=== PATIENT | male | born 1950 | race Caucasian/White ===

== ENCOUNTER 2018-07-13 13:25 | Inpatient (IN) ==
[2018-07-13] MEDS ORDERED: ACETAMINOPHEN 500 MG TAB PO STA (13:49)
[2018-07-13] MEDS ORDERED: SODIUM CHLORIDE 0.9% 1000ML 2,000 ML IV ONE (13:49)
[2018-07-13] MEDS ORDERED: cefTRIAXone SODIUM 1,000 MG/50 ML BAG IV STA (13:49)
[2018-07-13 14:25] LABS: iSTAT Creatinine 1.4 mg/dl (0.6-1.3); iSTAT Hemoglobin 16.3 g/dl (14.0-18.0); iSTAT Ionized Calcium 1.11 mmol/l (1.12-1.32); iSTAT Potassium 4.7 mEq/L (3.3-5.0)
--- NOTE | 2018-07-13 14:46 | CT Scan Report ---
CT head/brain wo con CT DOSE: 832.33 mGy.cm HISTORY: Mental status change legs weak TECHNIQUE: Multiaxial CT images of the head were performed without the use of intravenous contrast. A dose lowering technique was utilized adhering to the principles of ALARA. Comparison: None. Findings: The paranasal sinuses and mastoid air cells are clear. No prior studies are available for c omparison. There is an old right frontal infarct. There is no left parietal occipital infarct. There is a component of chronic small vessel change. Ventricular system is midline. Impression: No acute intracranial abnormality. Bilateral old infarcts. No acute intracranial abnormality. The above report was generated using voice recognition software. It may contain grammatical, syntax or spelling errors. Electronically signed by: Juan Carson M.D. 07/13/2018 2:45 PM
[2018-07-13 15:17] LABS: Hematocrit (blood only) 45.1 % (42-52); Mean Corpuscular Hgb Conc 33.3 g/dL (32-36); Mean Corpuscular Volume 93.2 fL (80-100); Mean Platelet Volume 9.5 fL (7.4-10.4); Platelet Count 160 K/uL (130-400); RDW Coefficient of Variation 13.7 % (11.5-14.5); RDW Standard Deviation 46.8 fL (36.4-46.3); Red Blood Count 4.84 M/uL (4.7-6.1); White Blood Count 22.78 K/uL (4.8-10.8)
--- NOTE | 2018-07-13 15:18 | XRay Report ---
XR chest 1V portable CLINICAL HISTORY: Sepsis. COMPARISON STUDY: Chest radiograph April 18, 2015. FINDINGS: There are median sternotomy wires and clips from bypass grafting. Cardiomediastinal silhoue tte is stable. There is possible underlying emphysema. There is no consolidation to suggest pneumonia . Obscuration of the left heart border is unchanged. This is likely due to epicardial fat pad. A 1.3 cm right mid lung zone pulmonary nodule is noted. This has slightly increased in size. IMPRESSION: 1. No acute cardiopulmonary findings. 2. 1.3 cm right midlung zone pulmonary nodule which is indeterminate. This may represent a calcified granuloma however a follow-up nonemergent chest CT is recommended to exclude a noncalcified pulmonary nodule. 3. Suspected emphysema. Electronically signed by: Mario Baker M.D. 07/13/2018 3:17 PM
[2018-07-13 15:21] LABS: Appearance Urine Cloudy (Clear); Bacteria Urine Automated 4+ (Negative); Bilirubin Urine Negative (Negative); Blood Urine Negative (Negative); Color Urine Dark Yellow; Glucose Urine UA Negative (Negative); Ketones Urine Trace (Negative); Leukocyte Esterase Urine 1+ (Negative); Nitrite Urine Positive (Negative); Protein Urine 2+ (Negative); RBC Urine Automated 0-4 /hpf (0-4); Specific Gravity Urine 1.032 (1.000-1.030); Urobilinogen Urine Negative (Negative); WBC Urine Automated >30 /hpf (0-5)
[2018-07-13 15:27] LABS: Partial Thromboplastin Ratio 0.9; Partial Thromboplastin Time 25.1 Seconds (21.0-31.0); Prothrombin Time 10.2 Seconds (9.0-12.0)
[2018-07-13] MEDS ORDERED: SODIUM CHLORIDE 0.9% 1000ML 1,000 ML IV ONE (15:31)
[2018-07-13 15:34] LABS: BUN Creatinine Ratio 13.6 (10-20); Calcium 8.4 mg/dl (8.5-10.1); Creatinine Clr Calc Pharmacy 48.7 ml/min; Est GFR (African American) 51.8; Est GFR (Non-African American) 44.7; Potassium 4.6 mmol/L (3.5-5.1)
[2018-07-13 15:37] LABS: Albumin Globulin Ratio 0.8 (0.9-2); Bilirubin,Total 0.4 mg/dl (0.2-1); Globulin 3.6 gm/dl (2.5-4.0); Total Protein 6.6 gm/dl (6.4-8.2)
[2018-07-13 15:57] LABS: Basophils # (auto) 0.03 K/uL (0-0.2); Basophils % (auto) 0.1 %; Immature Granulocytes # (auto) 0.08 K/uL (0.00-0.02); Immature Granulocytes % (auto) 0.4 %; Lymphocytes % (auto) 6.6 %; Monocytes # (auto) 3.12 K/uL (0.11-0.59); Monocytes % (auto) 13.7 %; Neutrophils # (auto) 18.05 K/uL (1.4-6.5); Neutrophils % (auto) 79.2 %; RBC Morphology Unremarkable
--- NOTE | 2018-07-13 17:24 | History & Physical Report ---
Date of Service July 13, 2018 Assessment & Plan (1) Severe sepsis: Meets criteria for severe sepsis per current CMS criteria: fever, tachycardia, leukocytosis, lactate > 2, altered mental status. Source appears to be urinary tract. Blood and urine cultures obtained. Received broad-spectrum antibiotic coverage with ceftriaxone which will be continued. Broaden coverage if clinical response not satisfactory. Systolic BP's in ED as low at 96. Received fluid resuscitation. Serum lactate 2.1- recheck. No need for pressors. (2) UTI (urinary tract infection): Severe sepsis as noted above. UA shows leukocyte esterase, WBC's, bacteria. Chronic urinary frequency; suspect chronic urinary retention (despite TURP). Check US to rule out signs of obstruction. (3) Altered mental status: No acute findings on CT of head. Metabolic encephalopathy secondary to sepsis. (4) Coronary artery disease: No anginal symptoms. Continue clopidogrel, metoprolol, amlodipone, statin. (5) Chronic systolic CHF (congestive heart failure): LVEF 25%. Underlying ishcemic +/- hypertensive heart disease. MARTINA / ARB contraindicated in light of CKD. Continue metoprolol, hydralazine. Monitor for fluid overload. (6) Cerebrovascular disease: Status post multiple ischemic strokes. Underlying carotid artery disease. Status post intracranial parenchymal hemorrhage perioperatively during carotid surgery. Confused, but no new focal neuro symptoms. No acute findings on CT of head. Continue clopidogrel and management of BP + lipids. (7) Hypertension: History of renovascular hypertension, s/p left nephrectomy and right aortorenal bypass. Did not take morning meds. Systolic BP in ED as low as 96. Follow and titrate Rx. (8) COPD (chronic obstructive pulmonary disease): Pulmonary status stable. Incentive spirometry. (9) Pulmonary nodule: 1.3 cm right mid-lung mass noted on chest x-ray, slightly larger than 04/18/15. Former smoker. Non-emergent CT recommended for follow-up. (10) CKD (chronic kidney disease), stage III: History of atrophic left kidney, removed because of severe hypertension. Serum creatinine 1.55 compared to baseline of 1.5 on 09/10/16. Maintain adequate intravascular volume. Avoid potential nephrotoxins. Follow. (11) Dyslipidemia: Continue pravastatin. (12) Urinary retention: S/P TURP. Chronic urinary frequency. Urinary frequency worse in ED, causing discomfort and impulsive behavior. Davidson cath inserted with postvoid residual of 500 mls. Voiding trial when better. Urology consultation if ongoing concerns. (13) DVT prophylaxis: Will not use anticoagulants because of history of intracranial hemorrhage. SCD's. Ambulate as able. (14) Discharge planning issues: Anticipated discharge to home. Medical follow-up with Dr. Syed in [place]. History of Present Illness Chief Complaint: chills, confusion Primary Care Provider: Luis Armando Syed, DO 68 YO male followed by Dr. Syed. History of ischemic heart disease, systolic CHF, cerebrovascular disease, solitary kidney, and other problems as noted. 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 Lives at home with his . Ambulatory without assistance devices. Able to feed himself (albeit with left hand). He was in his usual state of health until around 0400 this morning when he experienced chills. No apparent fever. noted that he was confused. Generalized weakness without new focal neuro symptoms. Having some dysuria without hematuria or flank pain. Chronic urinary frequency. No cough, nausea, vomiting, diarrhea. Allergies Allergy/AdvReac Type Severity Reaction Status Date / Time aspirin AdvReac Unknown RELAXES Verified 07/13/18 19:48 RECTUM atorvastatin AdvReac Unknown RELAXED Verified 07/13/18 19:49 RECTAL SPHINCTER Home Medications Home Medications Medication Instructions Recorded Confirmed Type Prevagen 1 cap PO DAILY 07/13/18 07/13/18 History allopurinol 100 mg PO DAILY 07/13/18 07/13/18 History amlodipine 5 mg PO QPM 07/13/18 07/13/18 History clopidogrel 75 mg PO QPM 07/13/18 07/13/18 History cyanocobalamin (vitamin B-12) 100 mcg PO DAILY 07/13/18 07/13/18 History famotidine 20 mg PO BID 07/13/18 07/13/18 History hydralazine 10 mg PO BID 07/13/18 07/13/18 History metoprolol tartrate 50 mg PO BID 07/13/18 07/13/18 History multivitamin 1 tab PO DAILY 07/13/18 07/13/18 History pravastatin 40 mg PO DAILY 07/13/18 07/13/18 History sennosides [Senokot] 8.6 mg PO BID 07/13/18 07/13/18 History trazodone 50 mg PO HS 07/13/18 07/13/18 History turmeric-turmeric ext-pepper 1 cap PO DAILY 07/13/18 07/13/18 History Past Med/Surg History Medical History Urinary retention (Chronic) Pulmonary nodule (Chronic) CXR [facility] 07/03/18: 1.3 cm right midlung nodule, slightly enlarged compared to . F/U with CT recommended. Hypertension (Chronic) COPD (chronic obstructive pulmonary disease) (Chronic) History of intracranial hemorrhage (Chronic) parenchymal hemorrhage perioperatively during / after carotid surgery CKD (chronic kidney disease), stage III (Chronic) Solitary kidney (Chronic) atrophic left kidney, nephrectomy performed for hypertension Dyslipidemia (Chronic) Chronic systolic CHF (congestive heart failure) (Chronic) Coronary artery disease (Chronic) s/p CABG Cerebrovascular disease (Chronic) s/p multiple ischemic strokes Stroke (Resolved) Peripheral vascular disease (Chronic) Surgical History Status post abdominal aortic aneurysm (AAA) repair (Chronic) Status post carotid endarterectomy (Chronic) Status post coronary artery bypass graft (Chronic) Status post nephrectomy (Chronic) left atrophic, nonfunctional associated with hypertension Status post transurethral resection of prostate (Chronic) Social History Current Living Situation: Spouse Feels Safe at Home: Yes Smoking Status: Former smoker Smoking End Date: october 2007 Hx Alcohol Use: No Hx Substance Use: No Beliefs That Will Affect Care: None Preferred Language: Kiswahili 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: No Review of Systems Constitutional: + chills; no fever and no weight loss Eyes: + problem reported (chronic loss of peripheral vision); no diplopia and no worsening vision Ear, Nose, Mouth, Throat: no nasal congestion, no sinus pain/pressure and no sore throat Respiratory: no cough and no dyspnea Cardiovascular: no chest pain, no palpitations and no edema Gastrointestinal: no nausea, no vomiting, no constipation, no diarrhea/loose stools, no blood in stools and no melena Genitourinary (Male): + as per Subjective / HPI Musculoskeletal: no joint pain and no myalgia Integumentary: + rash (chronic facial rash); no new lesions Neurologic: + localized weakness (chronic RUE) and + abnormal speech (chronic expressive aphasia); no headache(s) Endocrine: no polydipsia Hematologic / Lymphatic: no easy bleeding, no easy bruising and no lymphadenopathy Physical Exam 2 Vital Signs (Past 24 Hours): Last Vital Signs Temp 38.4 C H 07/13/18 13:35 Pulse 96 H 07/13/18 16:31 Resp 21 07/13/18 16:31 BP 148/89 H 07/13/18 16:30 Pulse Ox 96 07/13/18 16:31 Constitutional: + ill appearing; no acute distress Eyes: PERRL, conjunctivae normal, anicteric sclerae ENMT: external ear and nose normal, oropharynx normal Mouth: + oropharynx abnormality (poor dentition) Neck: trachea midline, no thyromegaly Respiratory: normal respiratory effort, lungs clear to auscultation no respiratory distress Auscultation: lungs clear to auscultation bilaterally Cardiovascular: Rate/Rhythm: regular rate, regular rhythm and + tachycardic Heart Sounds: no gallop, no murmur and no cardiac rub Vessels: no JVD Extremities: no calf tenderness and no edema Gastrointestinal (Abdomen): normal bowel sounds, soft, nontender, no hepatosplenomegaly Musculoskeletal: Head/Neck/Chest: neck supple Extremities: + abnormal strength (right account maintenance representative 3/5), no cyanosis and no clubbing Skin: no rashes, warm and dry Neurologic: PERRL, EOMI no facial palsy expressive aphasia moderate weakness RUE plantar reflexes equivocal bilat Psychiatric: Orientation: alert Affect: + anxious affect Lymphatic: no cervical lymphadenopathy Results & Data Laboratory Results Laboratory Results - last 24 hr 07/13/18 07/13/18 07/13/18 13:35 14:01 14:11 WBC RBC Hgb POC Hgb 16.3 Hct POC Hct 48 MCV MCH MCHC RDW Std Deviation RDW Coeff of Ketan Plt Count MPV Immature Gran % (Auto) Neut % (Auto) Lymph % (Auto) [place] % (Auto) Eos % (Auto) Baso % (Auto) Immature Gran # (Auto) Neut # (Auto) Lymph # (Auto) [place] # (Auto) Eos # (Auto) Baso # (Auto) RBC Morphology PT INR APTT PTT Ratio POC Sodium 139 Sodium POC Potassium 4.7 Potassium POC Chloride 105 Chloride Carbon Dioxide POC Total CO2 26 Anion Gap POC Anion Gap 13.0 L POC BUN 25 H BUN Creatinine POC Creatinine 1.4 H Est Cr Clr Drug Dosing Est GFR ( Amer) Est GFR (Non-Af Amer) BUN/Creatinine Ratio Glucose POC Glucose 130 H POC Glucose (other) 131 H Lactate Calcium POC Ioniz Calcium Carmela 1.11 L Total Bilirubin AST ALT Alkaline Phosphatase Total Protein Albumin Globulin Albumin/Globulin Ratio Procalcitonin Urine Color Dark Yellow Urine Appearance Cloudy H Urine pH 5.0 Ur Specific [place] 1.032 H Urine Protein 2+ H Urine Glucose (UA) Negative Urine Ketones Trace H Urine Blood Negative Urine Nitrite Positive H Urine Bilirubin Negative Urine Urobilinogen Negative Ur Leukocyte Esterase 1+ H Urine WBC (Auto) >30 H Urine RBC (Auto) 0-4 U Hyaline Cast (Auto) 10-30 H U Epithel Cells (Auto) 5-10 H Urine Bacteria (Auto) 4+ H 07/13/18 07/13/18 07/13/18 14:54 14:54 14:54 WBC 22.78 H RBC 4.84 Hgb 15.0 POC Hgb Hct 45.1 POC Hct MCV 93.2 MCH 31.0 MCHC 33.3 RDW Std Deviation 46.8 H RDW Coeff of Ketan 13.7 Plt Count 160 MPV 9.5 Immature Gran % (Auto) 0.4 Neut % (Auto) 79.2 Lymph % (Auto) 6.6 [place] % (Auto) 13.7 Eos % (Auto) 0.0 Baso % (Auto) 0.1 Immature Gran # (Auto) 0.08 H Neut # (Auto) 18.05 H Lymph # (Auto) 1.50 [place] # (Auto) 3.12 H Eos # (Auto) 0.00 Baso # (Auto) 0.03 RBC Morphology Unremarkable PT 10.2 INR 1.0 APTT 25.1 PTT Ratio 0.9 POC Sodium Sodium 140 POC Potassium Potassium 4.6 POC Chloride Chloride 108 H Carbon Dioxide 26 POC Total CO2 Anion Gap 6.0 POC Anion Gap POC BUN BUN 21 H Creatinine 1.55 H POC Creatinine Est Cr Clr Drug Dosing 48.7 Est GFR ( Amer) 51.8 Est GFR (Non-Af Amer) 44.7 BUN/Creatinine Ratio 13.6 Glucose 122 H POC Glucose POC Glucose (other) Lactate Calcium 8.4 L POC Ioniz Calcium Carmela Total Bilirubin 0.4 AST 15 ALT 36 Alkaline Phosphatase 72 Total Protein 6.6 Albumin 3.0 L Globulin 3.6 Albumin/Globulin Ratio 0.8 L Procalcitonin Urine Color Urine Appearance Urine pH Ur Specific [place] Urine Protein Urine Glucose (UA) Urine Ketones Urine Blood Urine Nitrite Urine Bilirubin Urine Urobilinogen Ur Leukocyte Esterase Urine WBC (Auto) Urine RBC (Auto) U Hyaline Cast (Auto) U Epithel Cells (Auto) Urine Bacteria (Auto) 07/13/18 07/13/18 07/13/18 14:54 19:05 19:05 WBC RBC Hgb POC Hgb Hct POC Hct MCV MCH MCHC RDW Std Deviation RDW Coeff of Ketan Plt Count MPV Immature Gran % (Auto) Neut % (Auto) Lymph % (Auto) [place] % (Auto) Eos % (Auto) Baso % (Auto) Immature Gran # (Auto) Neut # (Auto) Lymph # (Auto) [place] # (Auto) Eos # (Auto) Baso # (Auto) RBC Morphology PT INR APTT PTT Ratio POC Sodium Sodium POC Potassium Potassium POC Chloride Chloride Carbon Dioxide POC Total CO2 Anion Gap POC Anion Gap POC BUN BUN Creatinine POC Creatinine Est Cr Clr Drug Dosing Est GFR ( Amer) Est GFR (Non-Af Amer) BUN/Creatinine Ratio Glucose POC Glucose POC Glucose (other) Lactate 2.1 H* 2.1 H* Calcium POC Ioniz Calcium Carmela Total Bilirubin AST ALT Alkaline Phosphatase Total Protein Albumin Globulin Albumin/Globulin Ratio Procalcitonin 0.36 Urine Color Urine Appearance Urine pH Ur Specific [place] Urine Protein Urine Glucose (UA) Urine Ketones Urine Blood Urine Nitrite Urine Bilirubin Urine Urobilinogen Ur Leukocyte Esterase Urine WBC (Auto) Urine RBC (Auto) U Hyaline Cast (Auto) U Epithel Cells (Auto) Urine Bacteria (Auto) Diagnostic Findings PORTABLE CHEST X-RAY FINDINGS: There are median sternotomy wires and clips from bypass grafting. Cardiomediastinal silhouette is stable. There is possible underlying emphysema. There is no consolidation to suggest pneumonia. Obscuration of the left heart border is unchanged. This is likely due to epicardial fat pad. A 1.3 cm right mid lung zone pulmonary nodule is noted. This has slightly increased in size. IMPRESSION: 1. No acute cardiopulmonary findings. 2. 1.3 cm right midlung zone pulmonary nodule which is indeterminate. This may represent a calcified granuloma however a follow-up nonemergent chest CT is recommended to exclude a noncalcified pulmonary nodule. 3. Suspected emphysema. Electronically signed by: Mario Baker M.D. 07/13/2018 3:[address] HEAD WITHOUT CONTRAST Findings: The paranasal sinuses and mastoid air cells are clear. No prior studies are available for comparison. There is an old right frontal infarct. There is no left parietal occipital infarct. There is a component of chronic small vessel change. Ventricular system is midline. Impression: No acute intracranial abnormality. Bilateral old infarcts. No acute intracranial abnormality. The above report was generated using voice recognition software. It may contain grammatical, syntax or spelling errors. Electronically signed by: Juan Carson M.D. 07/13/2018 2:45 PM ECG Additional Comments: EKG performed at 1332 reviewed and demonstrated baseline artifact, ST at 120 / min, poor R-wave progression, intraventricular conduction delay, ST depression in lateral precordial leads. _ (1) UTI (urinary tract infection) Encounter type: Hematuria presence: without hematuria Indwelling urinary catheter type: Urinary tract infection type: site unspecified Qualified Code( s): N39.0 - Urinary tract infection, site not specified
[2018-07-13] MEDS ORDERED: ACETAMINOPHEN 325 MG TAB PO PRN (19:37)
--- NOTE | 2018-07-13 19:45 | Emergency Department Note ---
Entered by Gillian Murphy acting as a scribe for Sylvain Munoz DO History of Present Illness General Chief complaint: Stroke/CVA Symptoms Stated complaint: stroke symptoms Source: patient Mode of arrival: ambulatory Limitations: no limitations History of Present Illness Provider complaint: Stroke Sx Onset (ago): hour(s) ("couple hours today") Location: lower extremity and right Severity: moderate Pain Consistency: + constant Associated symptoms: + denies other symptoms Patient is a 68 year old male presenting to the ED with potential stroke that began today. Patient states that he awoke today at 04:30 feeling cold. notes that she then tried to help the patient get out of bed, noting he was generally weak and his right leg buckled. 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 She shares that she noticed that patients right leg was weaker than previously. Patient denies any cough, runny nose, sore throat, dizziness, lightheaded, CP, SOB, nausea, vomiting, diarrhea, abd pain or any other sx at this time. He lastly notes that he has no contact with any sick patients recently. Home Medications Home Medications Medication Instructions Recorded Confirmed Type Prevagen 1 cap PO DAILY 07/13/18 07/13/18 History allopurinol 100 mg PO DAILY 07/13/18 07/13/18 History amlodipine 5 mg PO QPM 07/13/18 07/13/18 History clopidogrel 75 mg PO QPM 07/13/18 07/13/18 History cyanocobalamin (vitamin B-12) 100 mcg PO DAILY 07/13/18 07/13/18 History famotidine 20 mg PO BID 07/13/18 07/13/18 History hydralazine 10 mg PO BID 07/13/18 07/13/18 History metoprolol tartrate 50 mg PO BID 07/13/18 07/13/18 History multivitamin 1 tab PO DAILY 07/13/18 07/13/18 History pravastatin 40 mg PO DAILY 07/13/18 07/13/18 History sennosides [Senokot] 8.6 mg PO BID 07/13/18 07/13/18 History trazodone 50 mg PO HS 07/13/18 07/13/18 History turmeric-turmeric ext-pepper 1 cap PO DAILY 07/13/18 07/13/18 History Allergies Allergy/AdvReac Type Severity Reaction Status Date / Time aspirin Allergy Unknown RELAXES Verified 07/13/18 15:46 RECTUM atorvastatin Allergy Unknown RELAXED Verified 07/13/18 15:46 RECTAL SPHINCTER HMG-CoA-R Inhibitors Allergy Unknown RELAXES Uncoded 07/13/18 15:46 RECTAL SPHINCTER Past Med/Surg History Medical History Stroke (Resolved) Family History Other No significant family history Social History Feels Safe at Home: Yes Smoking Status: Former smoker Preferred Language: Lao Review of Systems See HPI for pertinent positives & negatives. and A total of 10 systems reviewed and were otherwise negative Physical Exam Vital Signs Vital Signs - 24 hr 07/13/18 13:28 07/13/18 13:35 07/13/18 13:45 Temperature 38.4 C H Temperature Source Oral Sepsis Recent Fever Within 48 Hours No Sepsis New/Unexplained Change in Mental Status No Sepsis Action Taken by Nursing No Action Required Pulse Rate 107 H 110 H 110 H Pulse Rate [Apical] Pulse Rate from SpO2 Sensor Respiratory Rate 20 20 25 H Respiratory Effort / Characteristics Non-Labored Spontaneous Respiratory Depth Normal Respiratory Pattern Regular Blood Pressure 151/89 H 151/89 H Blood Pressure [Right Arm] Blood Pressure Mean 109 109 Blood Pressure Mean [Right Arm] Pulse Oximetry 95 Oxygen Delivery Method Room Air Oxygen Flow Rate 07/13/18 14:00 07/13/18 14:31 07/13/18 14:32 Temperature Temperature Source Sepsis Recent Fever Within 48 Hours Sepsis New/Unexplained Change in Mental Status Sepsis Action Taken by Nursing Pulse Rate 106 H 106 H 100 H Pulse Rate [Apical] Pulse Rate from SpO2 Sensor 99 H Respiratory Rate 24 10 L 32 H Respiratory Effort / Characteristics Respiratory Depth Respiratory Pattern Blood Pressure 154/81 H Blood Pressure [Right Arm] Blood Pressure Mean 105 Blood Pressure Mean [Right Arm] Pulse Oximetry 95 96 Oxygen Delivery Method Room Air Oxygen Flow Rate 07/13/18 15:00 07/13/18 15:01 07/13/18 15:02 Temperature Temperature Source Sepsis Recent Fever Within 48 Hours Sepsis New/Unexplained Change in Mental Status Sepsis Action Taken by Nursing Pulse Rate 105 H 100 H 105 H Pulse Rate [Apical] Pulse Rate from SpO2 Sensor 105 H Respiratory Rate 26 H 29 H 28 H Respiratory Effort / Characteristics Respiratory Depth Respiratory Pattern Blood Pressure 132/74 96/75 L Blood Pressure [Right Arm] Blood Pressure Mean 93 82 Blood Pressure Mean [Right Arm] Pulse Oximetry 95 94 Oxygen Delivery Method Room Air Oxygen Flow Rate 07/13/18 15:07 07/13/18 15:15 07/13/18 15:30 Temperature Temperature Source Sepsis Recent Fever Within 48 Hours Sepsis New/Unexplained Change in Mental Status Sepsis Action Taken by Nursing Pulse Rate 84 103 H Pulse Rate [Apical] 98 H Pulse Rate from SpO2 Sensor 86 92 H Respiratory Rate 20 21 23 Respiratory Effort / Characteristics Non-Labored Respiratory Depth Normal Respiratory Pattern Blood Pressure 104/69 Blood Pressure [Right Arm] 96/75 L Blood Pressure Mean 80 Blood Pressure Mean [Right Arm] 82 Pulse Oximetry 93 91 92 Oxygen Delivery Method Room Air Room Air Oxygen Flow Rate 07/13/18 15:31 07/13/18 15:46 07/13/18 15:47 Temperature Temperature Source Sepsis Recent Fever Within 48 Hours Sepsis New/Unexplained Change in Mental Status Sepsis Action Taken by Nursing Pulse Rate 100 H 99 H 99 H Pulse Rate [Apical] Pulse Rate from SpO2 Sensor 100 H 99 H 99 H Respiratory Rate 20 22 24 Respiratory Effort / Characteristics Respiratory Depth Respiratory Pattern Blood Pressure 115/80 121/77 Blood Pressure [Right Arm] Blood Pressure Mean 91 91 Blood Pressure Mean [Right Arm] Pulse Oximetry 93 93 93 Oxygen Delivery Method Oxygen Flow Rate 07/13/18 16:00 07/13/18 16:01 07/13/18 16:09 Temperature Temperature Source Sepsis Recent Fever Within 48 Hours Sepsis New/Unexplained Change in Mental Status Sepsis Action Taken by Nursing Pulse Rate 92 H 93 H Pulse Rate [Apical] Pulse Rate from SpO2 Sensor 92 H 93 H Respiratory Rate 23 22 Respiratory Effort / Characteristics Respiratory Depth Respiratory Pattern Blood Pressure 136/76 Blood Pressure [Right Arm] Blood Pressure Mean 96 Blood Pressure Mean [Right Arm] Pulse Oximetry 92 92 97 Oxygen Delivery Method Room Air Nasal Cannula Oxygen Flow Rate 2 07/13/18 16:15 07/13/18 16:30 07/13/18 16:31 Temperature Temperature Source Sepsis Recent Fever Within 48 Hours Sepsis New/Unexplained Change in Mental Status Sepsis Action Taken by Nursing Pulse Rate 93 H 98 H 96 H Pulse Rate [Apical] Pulse Rate from SpO2 Sensor 94 H 98 H 96 H Respiratory Rate 21 21 21 Respiratory Effort / Characteristics Respiratory Depth Respiratory Pattern Blood Pressure 150/83 H 148/89 H Blood Pressure [Right Arm] Blood Pressure Mean 105 108 Blood Pressure Mean [Right Arm] Pulse Oximetry 99 95 96 Oxygen Delivery Method Nasal Cannula Oxygen Flow Rate 2 07/13/18 17:00 07/13/18 17:01 07/13/18 17:15 Temperature Temperature Source Sepsis Recent Fever Within 48 Hours Sepsis New/Unexplained Change in Mental Status Sepsis Action Taken by Nursing Pulse Rate 109 H 111 H 107 H Pulse Rate [Apical] Pulse Rate from SpO2 Sensor 109 H 111 H 107 H Respiratory Rate 25 H 29 H 24 Respiratory Effort / Characteristics Respiratory Depth Respiratory Pattern Blood Pressure Blood Pressure [Right Arm] Blood Pressure Mean Blood Pressure Mean [Right Arm] Pulse Oximetry 93 94 94 Oxygen Delivery Method Room Air Oxygen Flow Rate 07/13/18 17:23 07/13/18 17:30 07/13/18 18:00 Temperature Temperature Source Sepsis Recent Fever Within 48 Hours Sepsis New/Unexplained Change in Mental Status Sepsis Action Taken by Nursing Pulse Rate 111 H 104 H 102 H Pulse Rate [Apical] Pulse Rate from SpO2 Sensor 110 H 106 H 106 H Respiratory Rate 24 25 H 21 Respiratory Effort / Characteristics Respiratory Depth Respiratory Pattern Blood Pressure 173/111 H Blood Pressure [Right Arm] Blood Pressure Mean 131 Blood Pressure Mean [Right Arm] Pulse Oximetry 94 94 93 Oxygen Delivery Method Oxygen Flow Rate 07/13/18 18:15 07/13/18 18:56 Temperature 37.2 C 37.2 C Temperature Source Oral Sepsis Recent Fever Within 48 Hours Sepsis New/Unexplained Change in Mental Status Sepsis Action Taken by Nursing Pulse Rate 105 H 111 H Pulse Rate [Apical] Pulse Rate from SpO2 Sensor 105 H Respiratory Rate 22 24 Respiratory Effort / Characteristics Respiratory Depth Respiratory Pattern Blood Pressure 193/90 H 164/98 H Blood Pressure [Right Arm] Blood Pressure Mean 124 Blood Pressure Mean [Right Arm] Pulse Oximetry 94 92 Oxygen Delivery Method Room Air Oxygen Flow Rate GENERAL: Sitting up in bed, alert, ill appearing, well nourished, disheveled. EYE EXAM: normal conjunctiva. OROPHARYNX: no exudate, no erythema, lips, buccal mucosa, and tongue normal and mucous membranes are moist NECK: supple, no nuchal rigidity, no adenopathy, non-tender LUNGS: Clear to auscultation. Normal chest wall mechanics HEART: no murmurs, S1 normal and S2 normal ABDOMEN: abdomen soft, non-tender, normo-active bowel, sounds, no masses, no rebound or guarding. BACK: Back is symmetrical on inspection and there is no deformity, no midline tenderness, no CVA tenderness. SKIN: no rashes and no bruising UPPER EXTREMITIES: upper extremities are grossly normal. LOWER EXTREMITIES: No pitting edema. NEURO EXAM: Normal sensorium, cranial nerves II-XII grossly intact, normal speech, no gross weakness of arms, no gross weakness of legs. No focal weakness. Course Vital signs were reviewed. The patients medical record was reviewed The above diagnostic studies were performed and reviewed. ED treatments and interventions as stated above. 1342: The patient was evaluated in room B06. A complete history and physical examination was performed. 1532: Upon reevaluation, the patient is laying in bed.I discussed my findings with the patient and family, who understands and agrees with the treatment plan. Based on the patients age, coexisting illnesses, exam and lab findings the decision to treat as an inpatient was made. 1533: Discussed case with Yary Craven PA-C, who accepts patient for admission. 1601: Discussed case with Dr. Velasco The patient remained stable while under my care. The patient will be evaluated for further management. Administered Medications Discontinued Medications Acetaminophen (Tylenol) 1,000 mg PO NOW STA Stop: 07/13/18 13:50 Last Admin: 07/13/18 14:17 Dose: 1,000 mg Sodium Chloride (Nss 1000ml) 2,000 mls @ 999 mls/hr IV .Q2H1M ONE Stop: 07/13/18 15:49 Last Infusion: 07/13/18 17:56 Dose: 0 mls/hr Admin: 07/13/18 14:16 Dose: 999 mls/hr Ceftriaxone Sodium (Rocephin) 1,000 mg in 50 mls @ 100 mls/hr IV NOW STA Stop: 07/13/18 14:18 Last Infusion: 07/13/18 15:59 Dose: 0 mls/hr Admin: 07/13/18 14:16 Dose: 100 mls/hr Sodium Chloride (Nss 1000ml) 1,000 mls @ 999 mls/hr IV .Q1H1M ONE Stop: 07/13/18 16:31 Last Infusion: 07/13/18 17:33 Dose: 0 mls/hr Admin: 07/13/18 15:57 Dose: 999 mls/hr Medical Decision Making Differential Diagnosis Differential diagnosis includes etiologies such as sepsis, UTI, pneumonia, metabolic, electrolyte abnormalities, cardiac sources, intracerebral event, toxicologic, neurologic, as well as others were entertained. Medical Records Attestation: I reviewed the patient's medical records. Home Medications Current Medication List: was personally reviewed by me Laboratory Data Attestation: I reviewed the patient's lab results. Result diagrams: 07/13/18 14:54 07/13/18 14:54 Lab Results 07/13/18 07/13/18 07/13/18 Range/Units 13:35 14:01 14:11 WBC (4.8-10.8) K/uL RBC (4.7-6.1) M/uL Hgb (14.0-18.0) g/dL POC Hgb 16.3 (14.0-18.0) g/dl Hct (42-52) % POC Hct 48 (42-52) % MCV (80-100) fL MCH (25-34) pg MCHC (32-36) g/dL RDW Std Deviation (36.4-46.3) fL RDW Coeff of Ketan (11.5-14.5) % Plt Count (130-400) K/uL MPV (7.4-10.4) fL Immature Gran % (Auto) % Neut % (Auto) % Lymph % (Auto) % Bowman % (Auto) % Eos % (Auto) % Baso % (Auto) % Immature Gran # (Auto) (0.00-0.02) K/uL Neut # (Auto) (1.4-6.5) K/uL Lymph # (Auto) (1.2-3.4) K/uL Bowman # (Auto) (0.11-0.59) K/uL Eos # (Auto) (0-0.5) K/uL Baso # (Auto) (0-0.2) K/uL RBC Morphology PT (9.0-12.0) Seconds INR (0.9-1.1) APTT (21.0-31.0) Seconds PTT Ratio POC Sodium 139 (135-144) mEq/L Sodium (136-145) mmol/L POC Potassium 4.7 (3.3-5.0) mEq/L Potassium (3.5-5.1) mmol/L POC Chloride 105 (101-112) mEq/L Chloride (98-107) mmol/L Carbon Dioxide (21-32) mmol/L POC Total CO2 26 (24-31) mEq/l Anion Gap (3-11) POC Anion Gap 13.0 L (16-25) mmol/L POC BUN 25 H (7-18) mg/dl BUN (7-18) mg/dl Creatinine (0.6-1.4) mg/dl POC Creatinine 1.4 H (0.6-1.3) mg/dl Est Cr Clr Drug Dosing ml/min Est GFR ( Amer) Est GFR (Non-Af Amer) BUN/Creatinine Ratio (10-20) Glucose (70-99) mg/dl POC Glucose 130 H (70-99) POC Glucose (other) 131 H (70-99) mg/dl Lactate (0.4-2.0) mmol/L Calcium (8.5-10.1) mg/dl POC Ioniz Calcium Carmela 1.11 L (1.12-1.32) mmol/l Total Bilirubin (0.2-1) mg/dl AST (15-37) U/L ALT (12-78) U/L Alkaline Phosphatase (45-117) U/L Total Protein (6.4-8.2) gm/dl Albumin (3.4-5.0) gm/dl Globulin (2.5-4.0) gm/dl Albumin/Globulin Ratio (0.9-2) Urine Color Dark Yellow Urine Appearance Cloudy H (Clear) Urine pH 5.0 (4.5-7.5) Ur Specific [place] 1.032 H (1.000-1.030) Urine Protein 2+ H (Negative) Urine Glucose (UA) Negative (Negative) Urine Ketones Trace H (Negative) Urine Blood Negative (Negative) Urine Nitrite Positive H (Negative) Urine Bilirubin Negative (Negative) Urine Urobilinogen Negative (Negative) Ur Leukocyte Esterase 1+ H (Negative) Urine WBC (Auto) >30 H (0-5) /hpf Urine RBC (Auto) 0-4 (0-4) /hpf U Hyaline Cast (Auto) 10-30 H (0-5) /lpf U Epithel Cells (Auto) 5-10 H (0-5) /lpf Urine Bacteria (Auto) 4+ H (Negative) 07/13/18 07/13/18 07/13/18 Range/Units 14:54 14:54 14:54 WBC 22.78 H (4.8-10.8) K/uL RBC 4.84 (4.7-6.1) M/uL Hgb 15.0 (14.0-18.0) g/dL POC Hgb (14.0-18.0) g/dl Hct 45.1 (42-52) % POC Hct (42-52) % MCV 93.2 (80-100) fL MCH 31.0 (25-34) pg MCHC 33.3 (32-36) g/dL RDW Std Deviation 46.8 H (36.4-46.3) fL RDW Coeff of Ketan 13.7 (11.5-14.5) % Plt Count 160 (130-400) K/uL MPV 9.5 (7.4-10.4) fL Immature Gran % (Auto) 0.4 % Neut % (Auto) 79.2 % Lymph % (Auto) 6.6 % Bowman % (Auto) 13.7 % Eos % (Auto) 0.0 % Baso % (Auto) 0.1 % Immature Gran # (Auto) 0.08 H (0.00-0.02) K/uL Neut # (Auto) 18.05 H (1.4-6.5) K/uL Lymph # (Auto) 1.50 (1.2-3.4) K/uL Bowman # (Auto) 3.12 H (0.11-0.59) K/uL Eos # (Auto) 0.00 (0-0.5) K/uL Baso # (Auto) 0.03 (0-0.2) K/uL RBC Morphology Unremarkable PT 10.2 (9.0-12.0) Seconds INR 1.0 (0.9-1.1) APTT 25.1 (21.0-31.0) Seconds PTT Ratio 0.9 POC Sodium (135-144) mEq/L Sodium 140 (136-145) mmol/L POC Potassium (3.3-5.0) mEq/L Potassium 4.6 (3.5-5.1) mmol/L POC Chloride (101-112) mEq/L Chloride 108 H (98-107) mmol/L Carbon Dioxide 26 (21-32) mmol/L POC Total CO2 (24-31) mEq/l Anion Gap 6.0 (3-11) POC Anion Gap (16-25) mmol/L POC BUN (7-18) mg/dl BUN 21 H (7-18) mg/dl Creatinine 1.55 H (0.6-1.4) mg/dl POC Creatinine (0.6-1.3) mg/dl Est Cr Clr Drug Dosing 48.7 ml/min Est GFR ( Amer) 51.8 Est GFR (Non-Af Amer) 44.7 BUN/Creatinine Ratio 13.6 (10-20) Glucose 122 H (70-99) mg/dl POC Glucose (70-99) POC Glucose (other) (70-99) mg/dl Lactate (0.4-2.0) mmol/L Calcium 8.4 L (8.5-10.1) mg/dl POC Ioniz Calcium Carmela (1.12-1.32) mmol/l Total Bilirubin 0.4 (0.2-1) mg/dl AST 15 (15-37) U/L ALT 36 (12-78) U/L Alkaline Phosphatase 72 (45-117) U/L Total Protein 6.6 (6.4-8.2) gm/dl Albumin 3.0 L (3.4-5.0) gm/dl Globulin 3.6 (2.5-4.0) gm/dl Albumin/Globulin Ratio 0.8 L (0.9-2) Urine Color Urine Appearance (Clear) Urine pH (4.5-7.5) Ur Specific [place] (1.000-1.030) Urine Protein (Negative) Urine Glucose (UA) (Negative) Urine Ketones (Negative) Urine Blood (Negative) Urine Nitrite (Negative) Urine Bilirubin (Negative) Urine Urobilinogen (Negative) Ur Leukocyte Esterase (Negative) Urine WBC (Auto) (0-5) /hpf Urine RBC (Auto) (0-4) /hpf U Hyaline Cast (Auto) (0-5) /lpf U Epithel Cells (Auto) (0-5) /lpf Urine Bacteria (Auto) (Negative) 07/13/18 07/13/18 Range/Units 14:54 19:05 WBC (4.8-10.8) K/uL RBC (4.7-6.1) M/uL Hgb (14.0-18.0) g/dL POC Hgb (14.0-18.0) g/dl Hct (42-52) % POC Hct (42-52) % MCV (80-100) fL MCH (25-34) pg MCHC (32-36) g/dL RDW Std Deviation (36.4-46.3) fL RDW Coeff of Ketan (11.5-14.5) % Plt Count (130-400) K/uL MPV (7.4-10.4) fL Immature Gran % (Auto) % Neut % (Auto) % Lymph % (Auto) % Bowman % (Auto) % Eos % (Auto) % Baso % (Auto) % Immature Gran # (Auto) (0.00-0.02) K/uL Neut # (Auto) (1.4-6.5) K/uL Lymph # (Auto) (1.2-3.4) K/uL Bowman # (Auto) (0.11-0.59) K/uL Eos # (Auto) (0-0.5) K/uL Baso # (Auto) (0-0.2) K/uL RBC Morphology PT (9.0-12.0) Seconds INR (0.9-1.1) APTT (21.0-31.0) Seconds PTT Ratio POC Sodium (135-144) mEq/L Sodium (136-145) mmol/L POC Potassium (3.3-5.0) mEq/L Potassium (3.5-5.1) mmol/L POC Chloride (101-112) mEq/L Chloride (98-107) mmol/L Carbon Dioxide (21-32) mmol/L POC Total CO2 (24-31) mEq/l Anion Gap (3-11) POC Anion Gap (16-25) mmol/L POC BUN (7-18) mg/dl BUN (7-18) mg/dl Creatinine (0.6-1.4) mg/dl POC Creatinine (0.6-1.3) mg/dl Est Cr Clr Drug Dosing ml/min Est GFR ( Amer) Est GFR (Non-Af Amer) BUN/Creatinine Ratio (10-20) Glucose (70-99) mg/dl POC Glucose (70-99) POC Glucose (other) (70-99) mg/dl Lactate 2.1 H* 2.1 H* (0.4-2.0) mmol/L Calcium (8.5-10.1) mg/dl POC Ioniz Calcium Carmela (1.12-1.32) mmol/l Total Bilirubin (0.2-1) mg/dl AST (15-37) U/L ALT (12-78) U/L Alkaline Phosphatase (45-117) U/L Total Protein (6.4-8.2) gm/dl Albumin (3.4-5.0) gm/dl Globulin (2.5-4.0) gm/dl Albumin/Globulin Ratio (0.9-2) Urine Color Urine Appearance (Clear) Urine pH (4.5-7.5) Ur Specific [place] (1.000-1.030) Urine Protein (Negative) Urine Glucose (UA) (Negative) Urine Ketones (Negative) Urine Blood (Negative) Urine Nitrite (Negative) Urine Bilirubin (Negative) Urine Urobilinogen (Negative) Ur Leukocyte Esterase (Negative) Urine WBC (Auto) (0-5) /hpf Urine RBC (Auto) (0-4) /hpf U Hyaline Cast (Auto) (0-5) /lpf U Epithel Cells (Auto) (0-5) /lpf Urine Bacteria (Auto) (Negative) Imaging Data Radiologist's Impression: CT head/brain wo con CT DOSE: 832.33 mGy.cm HISTORY: Mental status change legs weak TECHNIQUE: Multiaxial CT images of the head were performed without the use of intravenous contrast. A dose lowering technique was utilized adhering to the principles of ALARA. Comparison: None. Findings: The paranasal sinuses and mastoid air cells are clear. No prior studies are available for comparison. There is an old right frontal infarct. There is no left parietal occipital infarct. There is a component of chronic small vessel change. Ventricular system is midline. Impression: No acute intracranial abnormality. Bilateral old infarcts. No acute intracranial abnormality. The above report was generated using voice recognition software. It may contain grammatical, syntax or spelling errors. Electronically signed by: Juan Carson M.D. 07/13/2018 2:45 PM XR chest 1V portable CLINICAL HISTORY: Sepsis. COMPARISON STUDY: Chest radiograph April 18, 2015. FINDINGS: There are median sternotomy wires and clips from bypass grafting. Cardiomediastinal silhouette is stable. There is possible underlying emphysema. There is no consolidation to suggest pneumonia. Obscuration of the left heart border is unchanged. This is likely due to epicardial fat pad. A 1.3 cm right mid lung zone pulmonary nodule is noted. This has slightly increased in size. IMPRESSION: 1. No acute cardiopulmonary findings. 2. 1.3 cm right midlung zone pulmonary nodule which is indeterminate. This may represent a calcified granuloma however a follow-up nonemergent chest CT is recommended to exclude a noncalcified pulmonary nodule. 3. Suspected emphysema. Electronically signed by: Mario Baker M.D. 07/13/2018 3:17 PM ECG Data Attestation: I personally reviewed and interpreted this ECG as follows: Indication: weakness Rate (beats per minute): 116 Rhythm: sinus tachycardia Findings: + other (Poor baseline, Septal Q Waves) and + ST depression (in lateral leads) Blood Pressure Blood Pressure Findings: Normal blood pressure MDM Narrative Patient is a 68-year-old male that presents the ER for weakness associated with chills. Upon arrival patient is found to be febrile tachycardic. Heart rate was in the 120s. Labs show a leukocytosis of 22.7 thousand. No significant anemia. INR is unremarkable. BMP shows mild AK I with a creatinine 1.5. Lactate was elevated at 2.1. LFTs was unremarkable. UA consistent with UTI. Patient was given Tylenol, 2 L IV fluids, and IV Rocephin. CT head and chest x- ray were unremarkable. Patient was updated at bedside along with his family. Discussed with the hospitalist. Patient was admitted to the hospital for sepsis with a white count of 22,000, lactate of 2 tachycardia, and systolic blood pressures that dropped into the low 90s. Impression & Plan Sepsis, UTI (urinary tract infection) Critical Care Time I have personally spent 35 minutes of critical care time in the direct management of this patient. This includes bedside care, interpretation of diagnostic studies, and testing, discussion with consultants, patient, and family members, and other required patient management activities. This 35 minutes is in excess of all separately billable procedures. Critical Care Time: Yes Total Critical Care Time: 35 Discharge Plan Visit Data *Final* Discharge Date/Time: 07/13/18 18:56 Chief Complaint: Stroke/CVA Symptoms Stated Complaint: stroke symptoms ED Provider: Sylvain Munoz Discharge Problem: Sepsis, UTI (urinary tract infection) Patient Disposition: Admitted As Inpatient Discharge Instructions Interventions: ED Discharge Assessment Last Done: 07/13/18 18:56 The scribe's documentation has been prepared under my direction and personally reviewed by me in its entirety. I confirm that the note above accurately reflects all work, treatment, procedures, and medical decision making performed by me.
[2018-07-13] MEDS ORDERED: METOPROLOL TARTRATE 1 MG/ML VIAL IV STA (20:50)
[2018-07-13] MEDS ORDERED: METOPROLOL TARTRATE 1 MG/ML VIAL IV PRN (21:06)
[2018-07-13] MEDS: AMLODIPINE BESYLATE 5 MG TAB PO SCH (21:30)
[2018-07-13] MEDS: HydrALAZINE 10 MG TAB PO SCH (21:30)
[2018-07-13] MEDS: CLOPIDOGREL BISULFATE 75 MG TAB PO SCH (21:30)
[2018-07-13] MEDS: METOPROLOL TARTRATE 50 MG TAB PO SCH (21:30)
[2018-07-13] MEDS: TRAZODONE HCL 50 MG TAB PO SCH (21:31)
[2018-07-13] MEDS: SENNA 8.6 MG TAB PO SCH (21:31)
[2018-07-13] MEDS: FAMOTIDINE 20 MG TAB PO SCH (21:31)
[2018-07-13] MEDS ORDERED: cefTRIAXone SODIUM 1,000 MG in DEXTROSE 5% 50 ML IV ONE (21:56)
[2018-07-14 06:17] LABS: Hematocrit (blood only) 43.8 % (42-52); Hemoglobin 14.4 g/dL (14.0-18.0); Mean Corpuscular Hgb Conc 32.9 g/dL (32-36); Mean Corpuscular Volume 95.8 fL (80-100); Mean Platelet Volume 9.7 fL (7.4-10.4); Platelet Count 140 K/uL (130-400); RDW Standard Deviation 48.9 fL (36.4-46.3); Red Blood Count 4.57 M/uL (4.7-6.1); White Blood Count 19.81 K/uL (4.8-10.8)
[2018-07-14 06:53] LABS: BUN Creatinine Ratio 12.8 (10-20); Calcium 8.4 mg/dl (8.5-10.1); Creatinine Clr Calc Pharmacy 48.3 ml/min; Potassium 4.5 mmol/L (3.5-5.1)
--- NOTE | 2018-07-14 07:55 | XRay Report ---
XR chest 1V portable HISTORY: 68 years-old Male CHF, sepsis acute shortness of breath with CHF COMPARISON: Chest radiograph 07/13/2018 TECHNIQUE: Portable AP view of the chest FINDINGS: Cardiomediastinal and hilar silhouettes are unchanged. Prior median sternotomy. Suspected emphysema w ith areas of chronic interstitial coarsening. Unchanged indeterminate 1.3 cm nodular density about th e right midlung. No pneumothorax, pleural effusion or overt pulmonary edema. The bones of the chest a ppear grossly intact. IMPRESSION: 1. No acute process. 2. Unchanged indeterminate 1.3 cm nodular density about the right midlung. 3. Probable emphysema. The above report was generated using voice recognition software. It may contain grammatical, syntax o r spelling errors. Electronically signed by: Carroll Birmingham M.D. 07/14/2018 7:54 AM
--- NOTE | 2018-07-14 08:06 | Ultrasound Report ---
US renal/blad retro comp HISTORY: UTI, sepsis, s/p left nephrectomy COMPARISON: None. FINDINGS: Right kidney: No evidence for hydronephrosis. Maximum dimension 11.2 cm. 1.2 cm cyst lower pole. Mild increase in cortical echogenicity. No evidence for hydronephrosis. Left kidney: Prior left nephrectomy Bladder: No bladder wall thickening. The bilateral ureteral jets were identified. IMPRESSION: 1. Prior left nephrectomy 2. Right kidney shows mild increase in cortical echogenicity but is otherwise unremarkable. No eviden ce for right renal hydronephrosis. The above report was generated using voice recognition software. It may contain grammatical, syntax or spelling errors. Electronically signed by: Juan Carson M.D. 07/14/2018 8:05 AM
[2018-07-14] MEDS: HydrALAZINE 10 MG TAB PO SCH ×2 (08:40→20:20)
[2018-07-14] MEDS: FAMOTIDINE 20 MG TAB PO SCH ×2 (08:41→20:21)
[2018-07-14] MEDS: METOPROLOL TARTRATE 50 MG TAB PO SCH ×2 (08:41→20:21)
[2018-07-14] MEDS: SENNA 8.6 MG TAB PO SCH ×2 (08:42→20:19)
[2018-07-14] MEDS: ALLOPURINOL 100 MG TAB PO SCH (08:42)
[2018-07-14] MEDS: PRAVASTATIN SOD 40 MG TAB PO SCH (08:42)
[2018-07-14] MEDS ORDERED: cefTRIAXone SODIUM 2,000 MG in DEXTROSE 5% 50 ML IV SCH (16:00)
[2018-07-14] MEDS ORDERED: TURMERIC TURMERIC EXT PEPPER PO SCH (16:04)
[2018-07-14] MEDS: CYANOCOBALAMIN (VITAMIN B-12) 100 MCG TABLET PO SCH (17:37)
[2018-07-14] MEDS: MULTIVITAMIN TAB PO SCH (17:37)
--- NOTE | 2018-07-14 18:34 | Hospitalist Progress Note ---
Date of Service July 14, 2018 Assessment & Plan (1) Severe sepsis: Meets criteria for severe sepsis per current [facility] criteria on admission fever, tachycardia, leukocytosis, lactate > 2, altered mental status. Symptoms resolved, afebrile, improvement of leukocytosis, normalization of la ctic acid with IV fluids, mental status improved to baseline Source of infection/sepsis: UTI -positive UA, chronic urinary retention. Urine culture: Gram-negative bacilli, isolation and sensitivity pending Continue IV Rocephin till final sensitivity returns (2) UTI (urinary tract infection): Presented with severe sepsis secondary to UTI severe sepsis as noted above. UA shows leukocyte esterase, WBC's, bacteria. Urine culture: Gram-negative bacilli Chronic urinary frequency; suspect chronic urinary retention (despite TURP). Continue current chronic Davidson catheter, Urology consulted, patient follows with [facility] physician group Dr. Lopez (3) Altered mental status: No acute findings on CT of head. Metabolic encephalopathy secondary to sepsis/UTI Mental status improved to approximate baseline, patient is alert and oriented to place and person able to answer questions appropriately (4) Coronary artery disease: No anginal symptoms. Continue clopidogrel, metoprolol, amlodipone, statin. (5) Chronic systolic CHF (congestive heart failure): LVEF 25%. Underlying ishcemic +/- hypertensive heart disease. MARTINA / ARB contraindicated in light of CKD. Continue metoprolol, hydralazine. No evidence of volume overload (6) Acute renal failure superimposed on stage 3 chronic kidney disease: Presented with acute renal failure with creatinine elevated to 1.5, pos sible secondary to sepsis, dehydration, in the setting of chronic urinary retention Patient given IV fluid resuscitation Creatinine improves Davidson catheter placed Follow PRP, avoid NSAIDs, avoid contrast studies when possible (7) Cerebrovascular disease: Status post multiple ischemic strokes. Underlying carotid artery disease. Status post intracranial parenchymal hemorrhage perioperatively during carotid surgery. Presented with metabolic encephalopathy/confusion, no focal neurological deficit Mental status improved to baseline, No acute findings on CT of head. Continue Plavix (8) Hypertension: History of renovascular hypertension, s/p left nephrectomy and right aortorenal bypass. Continue outpatient meds (9) COPD (chronic obstructive pulmonary disease): Pulmonary status stable. Incentive spirometry. (10) Pulmonary nodule: 1.3 cm right mid-lung mass noted on chest x-ray, slightly larger than 04/18/15. Former smoker. Non-emergent CT recommended for follow-up. (11) CKD (chronic kidney disease), stage III: History of atrophic left kidney, removed because of severe hypertension. Serum creatinine 1.55 compared to baseline of 1.5 on 09/10/16. Maintain adequate intravascular volume. Avoid potential nephrotoxins. Follow. (12) Dyslipidemia: Continue pravastatin. (13) Urinary retention: S/P TURP. Chronic urinary frequency. Urinary frequency worse in ED, causing discomfort and impulsive behavior. Davidson cath inserted with postvoid residual of 500 mls. Continue Davidson catheter for drainage Renal ultrasound does not show any acute pathology of right kidney, patient patient is status post left necrotic nephrectomy May benefit with continued Davidson catheter for chronic urinary retention, urology consulted (14) DVT prophylaxis: Will not use anticoagulants because of history of intracranial hemorrhage. SCD's. Ambulate as able. (15) Discharge planning issues: Ordered for PT OT, increase activity as tolerated Lives at home with was independent in ADLs Presented with confusion, generalized weakness, all the symptoms has improved Anticipated discharge to home. Medical follow-up with Dr. Syed in [place]. Subjective Alert awake oriented, to place and person, sitting up in chair, no sign of distress, answering question appropriately, no fever or chills, present at bedside, visiting Physical Exam Vital Signs (Past 24 Hours): Last Vital Signs Temp 37.0 C 07/14/18 15:40 Pulse 92 H 07/14/18 15:40 Resp 16 07/14/18 15:40 BP 147/87 H 07/14/18 15:40 Pulse Ox 93 07/14/18 15:40 Constitutional: + ill appearing; no acute distress Eyes: PERRL, conjunctivae normal, anicteric sclerae ENMT: external ear and nose normal, oropharynx normal Mouth: + oropharynx abnormality (poor dentition) Neck: trachea midline, no thyromegaly Respiratory: normal respiratory effort, lungs clear to auscultation no respiratory distress Auscultation: lungs clear to auscultation bilaterally Cardiovascular: Rate/Rhythm: regular rate, regular rhythm and + tachycardic Heart Sounds: no gallop, no murmur and no cardiac rub Vessels: no JVD Extremities: no calf tenderness and no edema Gastrointestinal (Abdomen): normal bowel sounds, soft, nontender, no hepatosplenomegaly Musculoskeletal: Head/Neck/Chest: neck supple Extremities: + abnormal strength (right water resource engineer 3/5), no cyanosis and no clubbing Skin: no rashes, warm and dry Psychiatric: Orientation: alert, oriented to person and oriented to place Lymphatic: no cervical lymphadenopathy (1) UTI (urinary tract infection) Hematuria presence: without hematuria Urinary tract infection type: site unspecified Qualified Code(s): N39.0 - Urinary tract infection, site not specified (2) Coronary artery disease Coronary Disease-Associated Artery/Lesion type: [place] artery [place] vs. transplanted heart: [place] heart Associated angina: without angina Qualified Code(s): I25.10 - Atherosclerotic heart disease of [place] coronary artery without angina pectoris (3) Altered mental status Altered mental status type: unspecified Qualified Code(s): R41.82 - Altered mental status, unspecified (4) COPD (chronic obstructive pulmonary disease) COPD type: unspecified COPD Qualified Code(s): J44.9 - Chronic obstructive pulmonary disease, unspecified (5) Hypertension Hypertension type: unspecified Qualified Code(s): I10 - Essential (primary) hypertension (6) Acute renal failure superimposed on stage 3 chronic kidney disease Acute renal failure type: unspecified Qualified Code(s): N17.9 - Acute kidney failure, unspecified; N18.3 - Chronic kidney disease, stage 3 (moderate)
[2018-07-14] MEDS: CLOPIDOGREL BISULFATE 75 MG TAB PO SCH (20:20)
[2018-07-14] MEDS: AMLODIPINE BESYLATE 5 MG TAB PO SCH (20:20)
[2018-07-14] MEDS: TRAZODONE HCL 50 MG TAB PO SCH (20:22)
[2018-07-15 06:15] LABS: Hematocrit (blood only) 44.2 % (42-52); Hemoglobin 14.8 g/dL (14.0-18.0); Mean Corpuscular Hgb Conc 33.5 g/dL (32-36); Mean Corpuscular Volume 94.8 fL (80-100); Mean Platelet Volume 9.5 fL (7.4-10.4); Platelet Count 138 K/uL (130-400); RDW Coefficient of Variation 13.9 % (11.5-14.5); RDW Standard Deviation 47.8 fL (36.4-46.3); Red Blood Count 4.66 M/uL (4.7-6.1); White Blood Count 13.76 K/uL (4.8-10.8)
[2018-07-15 06:55] LABS: BUN Creatinine Ratio 13.8 (10-20); Calcium 8.9 mg/dl (8.5-10.1); Est GFR (African American) 62.3; Est GFR (Non-African American) 53.8; Potassium 4.2 mmol/L (3.5-5.1)
[2018-07-15] MEDS: FAMOTIDINE 20 MG TAB PO SCH ×2 (08:31→20:35)
[2018-07-15] MEDS: SENNA 8.6 MG TAB PO SCH ×2 (08:32→20:33)
[2018-07-15] MEDS: PRAVASTATIN SOD 40 MG TAB PO SCH (08:33)
[2018-07-15] MEDS: HydrALAZINE 10 MG TAB PO SCH ×2 (08:34→20:34)
[2018-07-15] MEDS: METOPROLOL TARTRATE 50 MG TAB PO SCH ×2 (08:34→20:34)
[2018-07-15] MEDS: CYANOCOBALAMIN (VITAMIN B-12) 100 MCG TABLET PO SCH (08:35)
[2018-07-15] MEDS: ALLOPURINOL 100 MG TAB PO SCH (08:35)
[2018-07-15] MEDS: MULTIVITAMIN TAB PO SCH (08:36)
[2018-07-15] MEDS ORDERED: cefTRIAXone SODIUM 2,000 MG in DEXTROSE 5% 50 ML IV SCH (16:00)
--- NOTE | 2018-07-15 16:25 | Hospitalist Progress Note ---
Date of Service July 15, 2018 Assessment & Plan (1) Severe sepsis: Meets criteria for severe sepsis per current [facility] criteria on admission fever, tachycardia, leukocytosis, lactate > 2, altered mental status. Symptoms resolved, afebrile, improvement of leukocytosis, normalization of la ctic acid with IV fluids, mental status improved to baseline Source of infection/sepsis: UTI -positive UA, chronic urinary retention. Urine culture: Gram-negative bacilli, Ecoli -will avoid quinolones ( prior hx of AAA s/p repair ) was treated with IV rocephin day #3 will be discharged with PO Keflex for 7 days ( to complete total 10 days tx ) (2) UTI (urinary tract infection): Presented with severe sepsis secondary to UTI severe sepsis as noted above. UA shows leukocyte esterase, WBC's, bacteria. Urine culture: E coli tx as outlined above Chronic urinary frequency; suspect chronic urinary retention (despite TURP). Continue current chronic Escobedo catheter, Urology consulted, patient follows with [facility] physician group Dr. Lopez pt may go home with chronic escobedo is ok with this will need referral to home health visiting nurse (3) Altered mental status: resolved , awake and alert , No acute findings on CT of head. Metabolic encephalopathy secondary to sepsis/UTI Mental status improved to approximate baseline, patient is alert and oriented to place and person able to answer questions appropriately (4) Coronary artery disease: No anginal symptoms. Continue clopidogrel, metoprolol, amlodipone, statin. (5) Chronic systolic CHF (congestive heart failure): LVEF 25%. Underlying ishcemic +/- hypertensive heart disease. MARTINA / ARB contraindicated in light of CKD. Continue metoprolol, hydralazine. No evidence of volume overload (6) Acute renal failure superimposed on stage 3 chronic kidney disease: Presented with acute renal failure with creatinine elevated to 1.5, possible secondary to sepsis, dehydration, in the setting of chronic urinary retention Patient given IV fluid resuscitation Creatinine improves Escobedo catheter placed Follow PRP, avoid NSAIDs, avoid contrast studies when possible (7) Cerebrovascular disease: Status post multiple ischemic strokes. Underlying carotid artery disease. Status post intracranial parenchymal hemorrhage perioperatively during carotid surgery. Presented with metabolic encephalopathy/confusion, no focal neurological deficit Mental status improved to baseline, No acute findings on CT of head. Continue Plavix (8) Hypertension: History of renovascular hypertension, s/p left nephrectomy and right aortorenal bypass. Continue outpatient meds (9) COPD (chronic obstructive pulmonary disease): Pulmonary status stable. Incentive spirometry. (10) Pulmonary nodule: 1.3 cm right mid-lung mass noted on chest x-ray, slightly larger than 04/18/15. Former smoker. Non-emergent CT recommended for follow-up. (11) CKD (chronic kidney disease), stage III: History of atrophic left kidney, removed because of severe hypertension. Serum creatinine 1.55 compared to baseline of 1.5 on 09/10/16. Maintain adequate intravascular volume. Avoid potential nephrotoxins. Follow. (12) Dyslipidemia: Continue pravastatin. (13) Urinary retention: S/P TURP. Chronic urinary frequency. Urinary frequency worse in ED, causing discomfort and impulsive behavior. Escobedo cath inserted with postvoid residual of 500 mls. Continue Escobedo catheter for drainage Renal ultrasound does not show any acute pathology of right kidney, patient patient is status post left necrotic nephrectomy may need Escobedo catheter for chronic urinary retention, urology consulted (14) DVT prophylaxis: Will not use anticoagulants because of history of intracranial hemorrhage. SCD's. Ambulate as able. (15) Discharge planning issues: Lives at home with was independent in ADLs Presented with confusion, generalized weakness, all the symptoms has improved per PT /OT eval pt is safe to return home with family support no further PT needed Anticipated discharge to home tomorrow 07/16/18 Medical follow-up with Dr. Syed in [place]. urology follow up with Dr Kasper updated at bedside Subjective pt reports of feeling fine no dizzy spell or lighthededness afebrile escobedo draining clear /yellow urine pt complains of constipation takes senna daily -cont added Miralax PRN discussed with pt may return home with chronic escobedo catheter and clinic follow up with Urology for voiding trial will need referral for home health per PT/Ot eval , pt is stable to return home with family support would like pt to be discharged home early afternoon by 2 pm if possible Integumentary: + rash (chronic facial rash) Physical Exam Vital Signs (Past 24 Hours): Last Vital Signs Temp 36.6 C 07/15/18 15:18 Pulse 92 H 07/15/18 15:18 Resp 18 07/15/18 15:18 BP 168/87 H 07/15/18 15:18 Pulse Ox 95 07/15/18 15:18 Constitutional: + ill appearing; no acute distress Eyes: PERRL, conjunctivae normal, anicteric sclerae ENMT: external ear and nose normal, oropharynx normal Mouth: + oropharynx abnormality (poor dentition) Neck: trachea midline, no thyromegaly Respiratory: normal respiratory effort, lungs clear to auscultation no res piratory distress Auscultation: lungs clear to auscultation bilaterally Cardiovascular: Rate/Rhythm: regular rate, regular rhythm and + tachycardic Heart Sounds: no gallop, no murmur and no cardiac rub Vessels: no JVD Extremities: no calf tenderness and no edema Gastrointestinal (Abdomen): normal bowel sounds, soft, nontender, no hepatosplenomegaly Musculoskeletal: Head/Neck/Chest: neck supple Extremities: + abnormal strength (right transportation operations manager 3/5), no cyanosis and no clubbing Skin: no rashes, warm and dry Psychiatric: Orientation: alert, oriented to person and oriented to place Affect: + anxious affect Lymphatic: no cervical lymphadenopathy (1) UTI (urinary tract infection) Hematuria presence: without hematuria Urinary tract infection type: site unspecified Qualified Code(s): N39.0 - Urinary tract infection, site not specified (2) Coronary artery disease Associated angina: without angina Coronary Disease-Associated Artery/Lesion type: [place] artery [place] vs. transplanted heart: [place] heart Qualified Code(s): I25.10 - Atherosclerotic heart disease of [place] coronary artery without angina pectoris (3) Acute renal failure superimposed on stage 3 chronic kidney disease Acute renal failure type: unspecified Qualified Code(s): N17.9 - Acute kidney failure, unspecified; N18.3 - Chronic kidney disease, stage 3 (moderate) (4) Altered mental status Altered mental status type: unspecified Qualified Code(s): R41.82 - Altered mental status, unspecified (5) COPD (chronic obstructive pulmonary disease) COPD type: unspecified COPD Qualified Code(s): J44.9 - Chronic obstructive pulmonary disease, unspecified (6) Hypertension Hypertension type: unspecified Qualified Code(s): I10 - Essential (primary) hypertension
[2018-07-15] MEDS: POLYETHYLENE (MIRALAX) 17 GM PACK PO SCH (17:02)
[2018-07-15] MEDS: DOCUSATE SODIUM 100 MG CAP PO SCH (17:02)
[2018-07-15] MEDS: LACTOBACILLUS ACIDOPHILUS (FLORANEX) TAB PO SCH ×2 (17:02→20:32)
--- NOTE | 2018-07-15 18:13 | Urology Consultation ---
Date of Consultation July 15, 2018 Assessment & Plan (1) Urinary retention: (2) UTI (urinary tract infection): 68yo M with sepsis, solitary R kidney, urinary retention, E.coli UTI Pt evaluated with Dr. Palomo this evening. Plan to maintain escobedo catheter for 10-14d to allow for bladder rest. Abx per primary service based on sensitivities, renally dosed, for total of 10- 14d therapy. Thank you for alloiwng us to participate in the acute care of Mr. Cardona. Will plan for outpatient f/u with voiding trial in our office. Pt likely will benefit from outpt cystoscopy in near future. Plan of care discussed with patient and , verbalize understanding. History of Present Illness Reason for Consultation: UR, chronic escobedo, UTI Requesting Physician: Dr. Barajas Attending Physician: Haleigh Barajas MD History of Present Illness 68yo M with hx of CVA x5 (per family) with residual RUE weakness and expressive aphasia presented to [facility] ED with increased RLE weakness, and "stroke-like syx" on 07/13. CT head negative for acute changes. +sepsis, febrile at 38.2C, hypotensive, +serum lactic acid. Per , pt had been reporting some dysuria, urgency/frequency prior to this event, ongoing for some time. UC&S positive for E.coli with some resistance. Broad spectrum abx initiated. Renal US - no stones, no hydro. We were consulted due to UR/UTI, indwelling catheter management Previously established with Dr. Kasper. Solitary kidney (s/p L nephrectomy > 10 years ago- pathology unavailable) s/p TURP 04/2015. Elevated PSA in 2014, prostate biopsy negative. Previously taking toviaz for urinary urgency in 2015, no f/u since this time. Pt sitting in chair, alert and oriented at time of evaluation. at bedside. Escobedo catheter inserted on 07/13, draining pink tinged urine. Pt tolerating catheter well, denies suprapubic pain or bladder spasms. Tolerating regular diet, no n/v/f/c. Allergies Allergy/AdvReac Type Severity Reaction Status Date / Time aspirin AdvReac Unknown RELAXES Verified 07/13/18 19:48 RECTUM atorvastatin AdvReac Unknown RELAXED Verified 07/13/18 19:49 RECTAL SPHINCTER Home Medications Home Medications Medication Instructions Recorded Confirmed Type Prevagen 1 cap PO DAILY 07/13/18 07/13/18 History allopurinol 100 mg PO DAILY 07/13/18 07/13/18 History amlodipine 5 mg PO QPM 07/13/18 07/13/18 History clopidogrel 75 mg PO QPM 07/13/18 07/13/18 History cyanocobalamin (vitamin B-12) 100 mcg PO DAILY 07/13/18 07/13/18 History famotidine 20 mg PO BID 07/13/18 07/13/18 History hydralazine 10 mg PO BID 07/13/18 07/13/18 History metoprolol tartrate 50 mg PO BID 07/13/18 07/13/18 History multivitamin 1 tab PO DAILY 07/13/18 07/13/18 History pravastatin 40 mg PO DAILY 07/13/18 07/13/18 History sennosides [Senokot] 8.6 mg PO BID 07/13/18 07/13/18 History trazodone 50 mg PO HS 07/13/18 07/13/18 History turmeric-turmeric ext-pepper 1 cap PO DAILY 07/13/18 07/13/18 History Patient History Medical History Urinary retention (Chronic) Pulmonary nodule (Chronic) CXR [facility] 07/03/18: 1.3 cm right midlung nodule, slightly enlarged compared to 04/18/15. F/U with CT recommended. Hypertension (Chronic) COPD (chronic obstructive pulmonary disease) (Chronic) History of intracranial hemorrhage (Chronic) parenchymal hemorrhage perioperatively during / after carotid surgery CKD (chronic kidney disease), stage III (Chronic) Solitary kidney (Chronic) atrophic left kidney, nephrectomy performed for hypertension Dyslipidemia (Chronic) Chronic systolic CHF (congestive heart failure) (Chronic) Coronary artery disease (Chronic) s/p CABG Cerebrovascular disease (Chronic) s/p multiple ischemic strokes Stroke (Resolved) Peripheral vascular disease (Chronic) Surgical History Status post abdominal aortic aneurysm (AAA) repair (Chronic) Status post carotid endarterectomy (Chronic) Status post coronary artery bypass graft (Chronic) Status post nephrectomy (Chronic) left atrophic, nonfunctional associated with hypertension Status post transurethral resection of prostate (Chronic) Family History Sister Diabetes mellitus Other No significant family history Social History Communication Ability: Effective Beliefs That Will Affect Care: None Current Living Situation: Spouse Feels Safe at Home: Yes Smoking Status: Former smoker Hx Alcohol Use: No Hx Substance Use: No Review of Systems Constitutional: no fever and no chills Eyes: no problem reported Ear, Nose, Mouth, Throat: no ear pain and no ear discharge Respiratory: no cough Cardiovascular: no chest pain Gastrointestinal: no abdominal pain Genitourinary (Male): + dysuria and + hematuria; no nocturia, no flank pain and no testicle pain escobedo catheter in place Musculoskeletal: no back pain Integumentary: no acne and no boil Neurologic: no numbness and no paresthesia Psychiatric: no behavioral changes Endocrine: no fatigue and no polydipsia Hematologic / Lymphatic: no easy bleeding Physical Exam Vital Signs (Past 24 Hours): Last Vital Signs Temp 36.6 C 07/15/18 15:18 Pulse 92 H 07/15/18 15:18 Resp 18 07/15/18 15:18 BP 168/87 H 07/15/18 15:18 Pulse Ox 95 07/15/18 15:18 Constitutional: no acute distress Eyes: no nystagmus ENMT: Ears: no hearing impairment Neck: trachea midline Respiratory: no respiratory distress, no labored breathing, does not use accessory muscles and no cough Cardiovascular: Vessels: radial pulses present; no JVD Gastrointestinal (Abdomen): Inspection/Auscultation: abdomen not distended and no abdominal edema Percussion/Palpation: abdomen soft; abdomen nontender Musculoskeletal: Head/Neck/Chest: normocephalic and head atraumatic Skin: no rashes, warm and dry Neurologic: awake; not confused and not obtunded Psychiatric: Orientation: alert and oriented x 3 Genitourinary: escobedo catheter intact, draining pink-tinged urine. no clots. Results & Data Laboratory Results Laboratory Results - last 48 hr 07/14/18 07/15/18 07/15/18 05:55 05:55 05:55 WBC 13.76 H RBC 4.66 L Hgb 14.8 Hct 44.2 MCV 94.8 MCH 31.8 MCHC 33.5 RDW Std Deviation 47.8 H RDW Coeff of Ketan 13.9 Plt Count 138 MPV 9.5 Absolute Nucleated RBC 0.00 Nucleated RBC % (auto) 0.0 Sodium 138 Potassium 4.2 Chloride 105 Carbon Dioxide 25 Anion Gap 8.0 BUN 18 Creatinine 1.33 Est Cr Clr Drug Dosing 57.0 Est GFR ( Amer) 62.3 Est GFR (Non-Af Amer) 53.8 BUN/Creatinine Ratio 13.8 Glucose 117 H Calcium 8.9 Hepatitis C Ab Screen Neg 07/16/18 07/16/18 05:46 05:46 WBC 9.37 RBC 4.78 Hgb 14.8 Hct 44.9 MCV 93.9 MCH 31.0 MCHC 33.0 RDW Std Deviation 47.6 H RDW Coeff of Ketan 13.9 Plt Count 166 MPV 9.7 Absolute Nucleated RBC Nucleated RBC % (auto) Sodium 137 Potassium 4.4 Chloride 106 Carbon Dioxide 24 Anion Gap 7.0 BUN 21 H Creatinine 1.43 H Est Cr Clr Drug Dosing 53.0 Est GFR ( Amer) 57.1 Est GFR (Non-Af Amer) 49.3 BUN/Creatinine Ratio 14.6 Glucose 115 H Calcium 9.0 Hepatitis C Ab Screen (1) UTI (urinary tract infection) Hematuria presence: without hematuria Urinary tract infection type: site unspecified Qualified Code(s): N39.0 - Urinary tract infection, site not specified
[2018-07-15] MEDS: CLOPIDOGREL BISULFATE 75 MG TAB PO SCH (20:34)
[2018-07-15] MEDS: AMLODIPINE BESYLATE 5 MG TAB PO SCH (20:35)
[2018-07-15] MEDS: TRAZODONE HCL 50 MG TAB PO SCH (21:01)
[2018-07-15] MEDS ORDERED: METOPROLOL TARTRATE 25 MG TAB PO STA (23:41)
[2018-07-16] MEDS ORDERED: LORazepam 0.5 MG TAB PO STA (00:43)
[2018-07-16 06:16] LABS: Hematocrit (blood only) 44.9 % (42-52); Hemoglobin 14.8 g/dL (14.0-18.0); Mean Corpuscular Volume 93.9 fL (80-100); Mean Platelet Volume 9.7 fL (7.4-10.4); Platelet Count 166 K/uL (130-400); RDW Coefficient of Variation 13.9 % (11.5-14.5); RDW Standard Deviation 47.6 fL (36.4-46.3); Red Blood Count 4.78 M/uL (4.7-6.1); White Blood Count 9.37 K/uL (4.8-10.8)
[2018-07-16 06:48] LABS: BUN Creatinine Ratio 14.6 (10-20); Est GFR (African American) 57.1; Est GFR (Non-African American) 49.3; Potassium 4.4 mmol/L (3.5-5.1)
[2018-07-16 07:28] VITALS: BP 136/85; TEMP 98.2; O2SAT 92
[2018-07-16] MEDS: CYANOCOBALAMIN (VITAMIN B-12) 100 MCG TABLET PO SCH (07:44)
[2018-07-16] MEDS: FAMOTIDINE 20 MG TAB PO SCH (07:45)
[2018-07-16] MEDS: DOCUSATE SODIUM 100 MG CAP PO SCH (07:45)
[2018-07-16] MEDS: ALLOPURINOL 100 MG TAB PO SCH (07:45)
[2018-07-16] MEDS: LACTOBACILLUS ACIDOPHILUS (FLORANEX) TAB PO SCH (07:45)
[2018-07-16] MEDS: SENNA 8.6 MG TAB PO SCH (07:46)
[2018-07-16] MEDS: POLYETHYLENE (MIRALAX) 17 GM PACK PO SCH (07:46)
[2018-07-16] MEDS ORDERED: METOPROLOL TARTRATE 50 MG TAB PO SCH (09:00)
[2018-07-16] MEDS: PRAVASTATIN SOD 40 MG TAB PO SCH (09:06)
[2018-07-16] MEDS: MULTIVITAMIN TAB PO SCH (09:06)
[2018-07-16] MEDS: cephALEXin 250 MG CAP PO SCH ×2 (09:06→12:38)
[2018-07-16] MEDS: HydrALAZINE 10 MG TAB PO SCH (09:07)
--- NOTE | 2018-07-16 10:30 | Hospitalist Progress Note ---
Date of Service July 16, 2018 Assessment & Plan (1) Severe sepsis: per Dr. Barajas notes: Meets criteria for severe sepsis per current CMS criteria on admission fever, tachycardia, leukocytosis, lactate > 2, altered mental status. Symptoms resolved, afebrile, improvement of leukocytosis, normalization of lactic acid with IV fluids, mental status improved to baseline Source of infection/sepsis: UTI -positive UA, chronic urinary retention. Urine culture: E coli given IV Rocephin stable for discharge continue Cephalexin x 1 week ff up with PCP in 3-5 days (2) UTI (urinary tract infection): per Dr. Barajas: Presented with severe sepsis secondary to UTI severe sepsis as noted above. UA shows leukocyte esterase, WBC's, bacteria. Urine culture: E coli Chronic urinary frequency; suspect chronic urinary retention (despite TURP). Continue current chronic Escobedo catheter, Urology consulted, patient follows with [facility] physician group Dr. Lopez (3) Altered mental status: No acute findings on CT of head. Metabolic encephalopathy secondary to sepsis/UTI resolved (4) Coronary artery disease: No anginal symptoms. Continue clopidogrel, metoprolol, amlodipone, statin. (5) Chronic systolic CHF (congestive heart failure): LVEF 25%. Underlying ishcemic +/- hypertensive heart disease. MRATINA / ARB contraindicated in light of CKD. Continue metoprolol, hydralazine. euvolemic (6) Acute renal failure superimposed on stage 3 chronic kidney disease: Presented with acute renal failure with creatinine elevated to 1.5, possible secondary to sepsis, dehydration, in the setting of chronic urinary retention Patient given IV fluid resuscitation Creatinine improves Escobedo catheter placed repeat PRP on Thursday (7) Cerebrovascular disease: Status post multiple ischemic strokes. Underlying carotid artery disease. Status post intracranial parenchymal hemorrhage perioperatively during carotid surgery. No acute findings on CT of head. Continue Plavix (8) Hypertension: History of renovascular hypertension, s/p left nephrectomy and right aortorenal bypass. Continue outpatient meds (9) COPD (chronic obstructive pulmonary disease): Pulmonary status stable. Incentive spirometry. (10) Pulmonary nodule: 1.3 cm right mid-lung mass noted on chest x-ray, slightly larger than 04/18/15. Former smoker. Non-emergent CT recommended for follow-up. (11) CKD (chronic kidney disease), stage III: History of atrophic left kidney, removed because of severe hypertension. Serum creatinine 1.55 compared to baseline of 1.5 on 09/10/16. crea 1.43 on discharge (12) Dyslipidemia: Continue pravastatin. (13) Urinary retention: S/P TURP. Chronic urinary frequency. Urinary frequency worse in ED, causing discomfort and impulsive behavior. Escobedo cath inserted with postvoid residual of 500 mls. Continue Escobedo catheter for drainage Renal ultrasound does not show any acute pathology of right kidney, patient patient is status post left necrotic nephrectomy Urologist Consulted, [facility] - recommend to maintain Escobedo cath until ff up with them on 07/26/18 (14) DVT prophylaxis: Will not use anticoagulants because of history of intracranial hemorrhage. SCD's. Ambulate as able. (15) Discharge planning issues: dc home with home health service ff up with PCP on 07/20 ff up with Urologist on 07/26 Subjective ff up for UTI seen resting in bed, comfortable oriented x 3 states he feels better overall denies confusion tolerating escoebdo cath no other symptoms states he is ready and would like to be discharged Physical Exam Vital Signs (Past 24 Hours): Last Vital Signs Temp 36.8 C 07/16/18 07:27 Pulse 90 07/16/18 07:27 Resp 16 07/16/18 07:27 BP 136/85 07/16/18 07:27 Pulse Ox 92 07/16/18 07:27 Results & Data Laboratory Results Laboratory Results - last 24 hr 07/16/18 07/16/18 05:46 05:46 WBC 9.37 RBC 4.78 Hgb 14.8 Hct 44.9 MCV 93.9 MCH 31.0 MCHC 33.0 RDW Std Deviation 47.6 H RDW Coeff of Ketan 13.9 Plt Count 166 MPV 9.7 Sodium 137 Potassium 4.4 Chloride 106 Carbon Dioxide 24 Anion Gap 7.0 BUN 21 H Creatinine 1.43 H Est Cr Clr Drug Dosing 53.0 Est GFR ( Amer) 57.1 Est GFR (Non-Af Amer) 49.3 BUN/Creatinine Ratio 14.6 Glucose 115 H Calcium 9.0 (1) UTI (urinary tract infection) Hematuria presence: without hematuria Urinary tract infection type: site unspecified Qualified Code(s): N39.0 - Urinary tract infection, site not specified (2) Coronary artery disease Associated angina: without angina Coronary Disease-Associated Artery/Lesion type: [place] artery [place] vs. transplanted heart: [place] heart Qualified Code(s): I25.10 - Atherosclerotic heart disease of [place] coronary artery without angina pectoris (3) Acute renal failure superimposed on stage 3 chronic kidney disease Acute renal failure type: unspecified Qualified Code(s): N17.9 - Acute kidney failure, unspecified; N18.3 - Chronic kidney disease, stage 3 (moderate) (4) Altered mental status Altered mental status type: unspecified Qualified Code(s): R41.82 - Altered mental status, unspecified (5) COPD (chronic obstructive pulmonary disease) COPD type: unspecified COPD Qualified Code(s): J44.9 - Chronic obstructive pulmonary disease, unspecified (6) Hypertension Hypertension type: unspecified Qualified Code(s): I10 - Essential (primary) hypertension
[2018-07-16 11:50] VITALS: PULSE 82
[2018-07-16] MEDS ORDERED: LIDOCAINE HCL 5% OINT 30 GM TUBE EXT PRN (12:29)
--- NOTE | 2018-07-16 18:32 | Discharge Summary ---
Date of Service July 16, 2018 Admission HPI Per Admitting Provider 68 [address]O male followed by Dr. Syed. History of ischemic heart disease, systolic CHF, cerebrovascular disease, solitary kidney, and other problems as noted. 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 Lives at home with his . Ambulatory without assistance devices. Able to feed himself (albeit with left hand). He was in his usual state of health until around 0400 this morning when he experienced chills. No apparent fever. noted that he was confused. Generalized weakness without new focal neuro symptoms. Having some dysuria without hematuria or flank pain. Chronic urinary frequency. No cough, nausea, vomiting, diarrhea. Admission Exam Per Admitting Provider Vital Signs (Past 24 Hours): Last Vital Signs Temp 38.4 C H 07/13/18 13:35 Pulse 96 H 07/13/18 16:31 Resp 21 07/13/18 16:31 BP 148/89 H 07/13/18 16:30 Pulse Ox 96 07/13/18 16:31 Constitutional: + ill appearing; no acute distress Eyes: PERRL, conjunctivae normal, anicteric sclerae ENMT: external ear and nose normal, oropharynx normal Mouth: + oropharynx abnormality (poor dentition) Neck: trachea midline, no thyromegaly Respiratory: normal respiratory effort, lungs clear to auscultation no re spiratory distress Auscultation: lungs clear to auscultation bilaterally Cardiovascular: Rate/Rhythm: regular rate, regular rhythm and + tachycardic Heart Sounds: no gallop, no murmur and no cardiac rub Vessels: no JVD Extremities: no calf tenderness and no edema Gastrointestinal (Abdomen): normal bowel sounds, soft, nontender, no hepatosplenomegaly Musculoskeletal: Head/Neck/Chest: neck supple Extremities: + abnormal strength (right casino controller 3/5), no cyanosis and no clubbing Skin: no rashes, warm and dry Neurologic: PERRL, EOMI no facial palsy expressive aphasia moderate weakness RUE plantar reflexes equivocal bilat Psychiatric: Orientation: alert Affect: + anxious affect Lymphatic: no cervical lymphadenopathy Principal Diagnosis ENCEPHALOPATHY, E COLI UTI Discharge Exam General- oriented x 3, not in distress, speaks in sentences with no effort or accessory muscle use Eyes- anicteric Neck- no JVD Lungs- clear breath sounds bilaterally, no rales/wheezes Heart- normal rate, regular rhythm; no murmurs Abdomen- normal bowel sounds, nondistended, soft, nontender Extremities- no pretibial edema, no calf tenderness Neuro- alert, oriented x 3; very mild dysarthria and R UE weakness ; no gross focal neurologic deficits Skin- warm & dry Discharge Data Allergies Allergy/AdvReac Type Severity Reaction Status Date / Time aspirin AdvReac Unknown RELAXES Verified 07/13/18 19:48 RECTUM atorvastatin AdvReac Unknown RELAXED Verified 07/13/18 19:49 RECTAL SPHINCTER Consultations 07/13/18 15:36 ED Decision to Admit Stat 07/14/18 13:31 Consult Case Management - Discharge Planning Routine 07/14/18 18:34 Consult Urology Routine Ordered Studies 07/13/18 13:48 CT head/brain wo con CT DOSE: 832.33 mGy.cm HISTORY: Mental status change legs weak TECHNIQUE: Multiaxial CT images of the head were performed without the use of intravenous contrast. A dose lowering technique was utilized adhering to the principles of ALARA. Comparison: None. Findings: The paranasal sinuses and mastoid air cells are clear. No prior studies are available for comparison. There is an old right frontal infarct. There is no left parietal occipital infarct. There is a component of chronic small vessel change. Ventricular system is midline. Impression: No acute intracranial abnormality. Bilateral old infarcts. No acute intracranial abnormality. 07/14/18 07:30 US renal/blad retro comp HISTORY: UTI, sepsis, s/p left nephrectomy COMPARISON: None. FINDINGS: Right kidney: No evidence for hydronephrosis. Maximum dimension 11.2 cm. 1.2 cm cyst lower pole. Mild increase in cortical echogenicity. No evidence for hydronephrosis. Left kidney: Prior left nephrectomy Bladder: No bladder wall thickening. The bilateral ureteral jets were identified. IMPRESSION: 1. Prior left nephrectomy 2. Right kidney shows mild increase in cortical echogenicity but is otherwise unremarkable. No evidence for right renal hydronephrosis. Hospital Course (1) Severe sepsis: per Dr. Barajas notes: Meets criteria for severe sepsis per current CMS criteria on admission fever, tachycardia, leukocytosis, lactate > 2, altered mental status. Symptoms resolved, afebrile, improvement of leukocytosis, normalization of lactic acid with IV fluids, mental status improved to baseline Source of infection/sepsis: UTI -positive UA, chronic urinary retention. Urine culture: E coli given IV Rocephin stable for discharge continue Cephalexin x 1 week ff up with PCP in 3-5 days (2) UTI (urinary tract infection): per Dr. Barajas: Presented with severe sepsis secondary to UTI severe sepsis as noted above. UA shows leukocyte esterase, WBC's, bacteria. Urine culture: E coli Chronic urinary frequency; suspect chronic urinary retention (despite TURP). Continue current chronic Burkett catheter, Urology consulted, patient follows with [facility] physician group Dr. Lopez (3) Altered mental status: No acute findings on CT of head. Metabolic encephalopathy secondary to sepsis/UTI resolved (4) Coronary artery disease: No anginal symptoms. Continue clopidogrel, metoprolol, amlodipone, statin. (5) Chronic systolic CHF (congestive heart failure): LVEF 25%. Underlying ishcemic +/- hypertensive heart disease. MARTINA / ARB contraindicated in light of CKD. Continue metoprolol, hydralazine. euvolemic (6) Acute renal failure superimposed on stage 3 chronic kidney disease: Presented with acute renal failure with creatinine elevated to 1.5, possible secondary to sepsis, dehydration, in the setting of chronic urinary retention Patient given IV fluid resuscitation Creatinine improves Burkett catheter placed repeat PRP on Thursday (7) Cerebrovascular disease: Status post multiple ischemic strokes. Underlying carotid artery disease. Status post intracranial parenchymal hemorrhage perioperatively during carotid surgery. No acute findings on CT of head. Continue Plavix (8) Hypertension: History of renovascular hypertension, s/p left nephrectomy and right aortorenal bypass. Continue outpatient meds (9) COPD (chronic obstructive pulmonary disease): Pulmonary status stable. Incentive spirometry. (10) Pulmonary nodule: found on CXR IMPRESSION: 1. No acute cardiopulmonary findings. 2. 1.3 cm right midlung zone pulmonary nodule which is indeterminate. This may represent a calcified granuloma however a follow-up nonemergent chest CT is recommended to exclude a noncalcified pulmonary nodule. 3. Suspected emphysema. Former smoker. Non-emergent CT recommended for follow-up. (11) CKD (chronic kidney disease), stage III: History of atrophic left kidney, removed because of severe hypertension. Serum creatinine 1.55 compared to baseline of 1.5 on 09/10/16. crea 1.43 on discharge (12) Dyslipidemia: Continue pravastatin. (13) Urinary retention: S/P TURP. Chronic urinary frequency. Urinary frequency worse in ED, causing discomfort and impulsive behavior. Burkett cath inserted with postvoid residual of 500 mls. Continue Burkett catheter for drainage Renal ultrasound does not show any acute pathology of right kidney, patient patient is status post left necrotic nephrectomy Urologist Consulted, [facility] - recommend to maintain Burkett cath until ff up with them on 07/26/18 (14) DVT prophylaxis: Will not use anticoagulants because of history of intracranial hemorrhage. SCD's. Ambulate as able. (15) Discharge planning issues: dc home with home health service ff up with PCP on 07/20 ff up with Urologist on 07/26 Total Time Total Time Spent Total Time Spent (In Minutes): 35 minutes Discharge Plan Discharge Items Patient Disposition: Home - Home Health Services Reason For Visit: SEPSIS Discharge Diagnosis: SEPSIS DUE TO UTI ( E.COLI) /CHRONIC URINARY RETENTION Discharge Goals: Decrease discomfort, Improve disease control and Therapeutic intervention Activity: Resume your previous activity Non-emergency contact: Primary Care Provider Call non-emergency contact if: you have any medication questions Follow-up/Referrals: Dick Kasper MD [Hospitalist] - 07/26/18 11:30 am Diet: Heart Healthy Diet Texture: Dental soft (bite-sized) Addtl Provider Instructions: HOSPITAL FOLLOW UP WITH PAMELA KAY PA-C ON Thursday07/20/2018 @ 9: 05 AM AT [facility] CONTINUE [facility] AT HOME HOME HEALTH NURSING REFERRAL MADE TO ASSIST IN [facility] MANAGEMENT FOLLOW UP WITH UROLOGY /DR KASPER ON Thursday07/26/2018 @ 11: 30 AM FOR VOIDING TRIAL PLEASE CALL YOU FAMILY PHYSICIAN WITH ANY SYMPTOMS OF ; FEVER /CONFUSION ABDOMINAL PAIN /NAUSEA ANY EVIDENCE OF BLOOD IN [facility] LAB WORK : BASIC METABOLIC PANEL ON Thursday07/19/2018 -( DX : CHRONIC KIDNEY DISEASE ) HOME HEALTH CAN DRAW THE LAB DO NOT TAKE ADVIL, IBUPROPHEN , NAPROXEN , ALEVE, MOTRIN WILL CAUSE WORSENING OF YOUR KIDNEY FUNCTION Prescriptions: New cephalexin 250 mg Capsule 250 mg PO QID 7 Days Qty: 28 RF: 0 Continued hydralazine 10 mg tablet 10 mg PO BID RF: 0 trazodone 50 mg tablet 50 mg PO HS RF: 0 pravastatin 40 mg tablet 40 mg PO DAILY RF: 0 clopidogrel 75 mg tablet 75 mg PO QPM RF: 0 amlodipine 5 mg Tablet 5 mg PO QPM RF: 0 allopurinol 100 mg tablet 100 mg PO DAILY RF: 0 famotidine 20 mg tablet 20 mg PO BID RF: 0 metoprolol tartrate 50 mg tablet 50 mg PO BID RF: 0 multivitamin Tablet,Chewable 1 tab PO DAILY RF: 0 turmeric-turmeric ext-pepper 500-3 mg Capsule 1 cap PO DAILY RF: 0 Prevagen 1 cap PO DAILY RF: 0 sennosides [Senokot] 8.6 mg Tablet 8.6 mg PO BID RF: 0 cyanocobalamin (vitamin B-12) 100 mcg Tablet 100 mcg PO DAILY RF: 0 Stand-Alone Forms: [facility]/Other Patient Handouts: Catheter Indwelling Urinary Dc, Leg Bag Care Dc Discharge Orders: Discharge Order (Routine); Ordered 07/16/18 Ordered By: Felton Morrison Admission Data Admit Date/Time: 07/13/18 15:47 Attending Provider: Felton Morrison Admit Provider: Joe Velasco Primary Care Provider: Luis Armando Syed V Other Providers: Joe Velasco ; Luis Armando Pritchett ; Dick Kasper ; Kamron Palomo I. ; Toni Salgado ; Tana Martin ; Morgan Ozuna II ; Freida Browning Service: Medical Other Interventions: Discharge Summary Assessment (RN) Last Done: 07/16/18 11:46 DC Date/Time DO NOT enter until pt leaves facility: 07/16/18 13:14
== END 2018-07-16 13:14 | disposition home health service (06) | DRG 871 ==
LOC: ED 13:25 → 2S 15:47 → SUATTDRO 15:47 → 2S 18:56 → 4E 07-14 13:27

== ENCOUNTER 2018-08-26 00:04 | Inpatient (IN) ==
[2018-08-26] MEDS ORDERED: SODIUM CHLORIDE 0.9% 1000ML 1,000 ML IV SCH (00:15)
[2018-08-26 00:37] LABS: Basophils # (auto) 0.03 K/uL (0-0.2); Basophils % (auto) 0.2 %; Eosinophils # (auto) 0.13 K/uL (0-0.5); Hematocrit (blood only) 42.3 % (42-52); Hemoglobin 14.1 g/dL (14.0-18.0); Immature Granulocytes # (auto) 0.04 K/uL (0.00-0.02); Immature Granulocytes % (auto) 0.3 %; Lymphocytes # (auto) 1.41 K/uL (1.2-3.4); Lymphocytes % (auto) 10.3 %; Mean Corpuscular Hgb Conc 33.3 g/dL (32-36); Mean Corpuscular Volume 95.1 fL (80-100); Mean Platelet Volume 9.5 fL (7.4-10.4); Monocytes # (auto) 1.78 K/uL (0.11-0.59); Monocytes % (auto) 13.1 %; Neutrophils # (auto) 10.24 K/uL (1.4-6.5); Neutrophils % (auto) 75.1 %; Platelet Count 178 K/uL (130-400); RDW Coefficient of Variation 13.9 % (11.5-14.5); RDW Standard Deviation 47.4 fL (36.4-46.3); Red Blood Count 4.45 M/uL (4.7-6.1); White Blood Count 13.63 K/uL (4.8-10.8)
[2018-08-26 00:55] LABS: Alanine Aminotransferase 24 U/L (12-78); Aspartate Aminotransferase 10 U/L (15-37); Blood Urea Nitrogen 25 mg/dl (7-18); Calcium 9.6 mg/dl (8.5-10.1); Carbon Dioxide 28 mmol/L (21-32); Chloride 104 mmol/L (98-107); Creatinine Clr Calc Pharmacy 47.6 ml/min; Est GFR (African American) 51.4; Est GFR (Non-African American) 44.3; Glucose 156 mg/dl (70-99); Magnesium 1.8 mg/dl (1.8-2.4); Potassium 4.3 mmol/L (3.5-5.1); Sodium 137 mmol/L (136-145)
[2018-08-26 01:06] LABS: Albumin Globulin Ratio 0.8 (0.9-2); Alkaline Phosphatase 84 U/L (45-117); Bilirubin,Total 0.3 mg/dl (0.2-1)
[2018-08-26] MEDS ORDERED: SODIUM CHLORIDE 0.9% 500 ML IV ONE ×2 (01:17→04:35)
[2018-08-26 03:15] LABS: Troponin I < 0.015 ng/ml (0-0.045)
[2018-08-26 03:20] LABS: Appearance Urine Cloudy (Clear); Bacteria Urine Automated 1+ (Negative); Bilirubin Urine Negative (Negative); Blood Urine Trace (Negative); Cast Urine Automated 0 /lpf (0-5); Color Urine Yellow; Epithelial Cell Urine Auto 0-5 /lpf (0-5); Glucose Urine UA Negative (Negative); Ketones Urine Negative (Negative); Leukocyte Esterase Urine 2+ (Negative); Nitrite Urine Negative (Negative); Protein Urine Negative (Negative); RBC Urine Automated 0-4 /hpf (0-4); Specific Gravity Urine 1.011 (1.000-1.030); Urobilinogen Urine Negative (Negative); WBC Urine Automated >30 /hpf (0-5); pH Urine 5.5 (4.5-7.5)
--- NOTE | 2018-08-26 03:56 | Emergency Department Note ---
Entered by Vernon Kay acting as a scribe for Beena Wilkerson MD History of Present Illness General Chief complaint: Weakness Source: patient and family () History of Present Illness Provider complaint: Weakness Onset (ago): day(s) (tonight around 2200) Location: head (general) Severity: similar to prior episodes Pain Consistency: + other (sudden) Maximum Pain Intensity: 0 Quality: + other (weakness) Associated symptoms: + fever/chills (+chills) and + other (strong urine smell); no confusion, no cough and no shortness of breath The patient is a 68 year old male who presents to the Emergency Room with complaints of weakness that started suddenly tonight around 2200. The patient notes that he was able to go out to dinner tonight, but states that around 2200 he was suddenly unable to walk. The patient's reports that the patient was also complaining about pain in his right foot and notes that the top of his foot was red. She also states that the patient has a history of gout in his right foot and reports that it has been ongoing for a while. The patient denies any confusion, shortness of breath, or coughing, but admits to experiencing chills. He also admits that his oxygen levels are typically low. The patient's states that the patient has a history of 5 strokes as well as aphasia. She further notes that over the last couple of days, the patient's urine has had a very strong smell. The patient's notes that the patient does not drink much water, but states that she has been trying to get him to drink more. She further reports that the last time the patient was seen in the hospital, he presented with similar symptoms and was found to be septic. Home Medications Home Medications Medication Instructions Recorded Confirmed Type Prevagen 1 cap PO DAILY 07/13/18 08/26/18 History allopurinol 100 mg PO DAILY 07/13/18 08/26/18 History amlodipine 5 mg PO QPM 07/13/18 08/26/18 History clopidogrel 75 mg PO QPM 07/13/18 08/26/18 History famotidine 20 mg PO BID 07/13/18 08/26/18 History hydralazine 10 mg PO TID 07/13/18 08/26/18 History metoprolol tartrate 50 mg PO Q8 07/13/18 08/26/18 History multivitamin 1 tab PO DAILY 07/13/18 08/26/18 History pravastatin 40 mg PO DAILY 07/13/18 08/26/18 History trazodone 50 mg PO HS 07/13/18 08/26/18 History Turmeric/Curcumim 500 mg PO DAILY 08/26/18 08/26/18 History Vitamin B Energy 1 tab PO DAILY 08/26/18 08/26/18 History acetaminophen [Tylenol Arthritis 1,300 mg PO Q12H PRN 08/26/18 08/26/18 History Pain] biotin 2,500 mcg PO DAILY 08/26/18 08/26/18 History [id number] [Vicks 0.5 dose PO HS 08/26/18 08/26/18 History Nyquil Nighttime Relief] dutasteride 0.5 mg PO DAILY 08/26/18 08/26/18 History oxybutynin chloride 5 mg PO TID PRN 08/26/18 08/26/18 History sennosides [Vegetable Laxative] 8.6 mg PO BID PRN 08/26/18 08/26/18 History Allergies Allergy/AdvReac Type Severity Reaction Status Date / Time aspirin AdvReac Intermediate RELAXES Verified 08/26/18 01:07 RECTUM atorvastatin AdvReac Intermediate RELAXED Verified 08/26/18 01:07 RECTAL SPHINCTER Past Med/Surg History Medical History Urinary retention (Chronic) Pulmonary nodule (Chronic) CXR [facility] 07/03/18: 1.3 cm right midlung nodule, slightly enlarged compared to 04/18/15. F/U with CT recommended. Hypertension (Chronic) COPD (chronic obstructive pulmonary disease) (Chronic) History of intracranial hemorrhage (Chronic) parenchymal hemorrhage perioperatively during / after carotid surgery CKD (chronic kidney disease), stage III (Chronic) Solitary kidney (Chronic) atrophic left kidney, nephrectomy performed for hypertension Dyslipidemia (Chronic) Chronic systolic CHF (congestive heart failure) (Chronic) Coronary artery disease (Chronic) s/p CABG Cerebrovascular disease (Chronic) s/p multiple ischemic strokes Stroke (Resolved) Peripheral vascular disease (Chronic) Surgical History Status post abdominal aortic aneurysm (AAA) repair (Chronic) Status post carotid endarterectomy (Chronic) Status post coronary artery bypass graft (Chronic) Status post nephrectomy (Chronic) left atrophic, nonfunctional associated with hypertension Status post transurethral resection of prostate (Chronic) Family History Sister Diabetes Other No significant family history Social History Preferred Language: Czech Beliefs That Will Affect Care: None Current Living Situation: Spouse Feels Safe at Home: Yes Smoking Status: Never smoker Hx Alcohol Use: No Hx Substance Use: No Review of Systems See HPI for pertinent positives & negatives. and A total of 10 systems reviewed and were otherwise negative Physical Exam Vital Signs Vital Signs - 24 hr 08/26/18 00:08 08/26/18 00:13 08/26/18 00:33 Temperature 37.5 C Temperature Source Oral Sepsis Recent Fever Within 48 Hours No Sepsis Action Taken by Nursing No Action Required Pulse Rate 74 Pulse Rate [Right Finger] Pulse Rhythm Regular Pulse Rhythm [Right Finger] Pulse Strength Normal Pulse Strength [Right Finger] Respiratory Rate 20 Respiratory Effort / Characteristics Non-Labored Spontaneous Respiratory Depth Normal Respiratory Pattern Blood Pressure 131/78 Blood Pressure [Right Arm] Blood Pressure Mean 95 Blood Pressure Mean [Right Arm] Blood Pressure Position Sitting Pulse Oximetry 87 L 93 89 L Oxygen Delivery Method Room Air Nasal Cannula Room Air Oxygen Flow Rate 2 08/26/18 00:59 08/26/18 03:00 Temperature Temperature Source Sepsis Recent Fever Within 48 Hours Sepsis Action Taken by Nursing Pulse Rate Pulse Rate [Right Finger] 70 81 Pulse Rhythm Pulse Rhythm [Right Finger] Regular Regular Pulse Strength Pulse Strength [Right Finger] Normal Normal Respiratory Rate 18 20 Respiratory Effort / Characteristics Non-Labored Spontaneous Non-Labored Spontaneous Respiratory Depth Normal Normal Respiratory Pattern Regular Blood Pressure Blood Pressure [Right Arm] 120/70 167/104 H Blood Pressure Mean Blood Pressure Mean [Right Arm] 86 125 Blood Pressure Position Pulse Oximetry 90 90 Oxygen Delivery Method Room Air Room Air Oxygen Flow Rate Vital signs reviewed. General: Chronically-ill appearing elderly male HEENT: No scleral icterus, PERRLA, neck supple. Atraumatic. Cardiovascular: Regular rate and rhythm, no extra sounds. Pulmonary: Clear to auscultation bilaterally, normal work of breathing. Abdomen: Soft, obese, nontender, nondistended, positive bowel sounds. Well healed incision to midline abdomen. Musculoskeletal: Atraumatic, no peripheral edema. Neurologic: Patient awake alert and answers most questions appropriately. There is some delay in speech. Moves all extremities equally. Facial muscles are symmetric. Skin: Warm, dry, no rash. Redness around right first MTP joint with pinpoint ulceration on medial surface of joint with no drainage. Tender to touch. Course 0026: The patient was evaluated in room B11B, and a complete history and physical examination were performed. Administered Medications Sodium Chloride (Nss 1000ml) 1,000 mls @ 125 mls/hr IV .Q8H NATALYA Stop: 08/26/18 08:14 Last Admin: 08/26/18 00:59 Dose: 125 mls/hr Documented by: [id number] Discontinued Medications Sodium Chloride (Nss) 500 mls @ 999 mls/hr IV .Q31M ONE Stop: 08/26/18 01:47 Last Infusion: 08/26/18 01:50 Dose: 0 mls/hr Documented by: [id number] Admin: 08/26/18 01:19 Dose: 999 mls/hr Documented by: [id number] Ceftriaxone Sodium (Rocephin) 1,000 mg in 50 mls @ 100 mls/hr IV NOW STA Stop: 08/26/18 04:32 Last Infusion: 08/26/18 04:40 Dose: 0 mls/hr Documented by: [id number] Admin: 08/26/18 04:09 Dose: 100 mls/hr Documented by: [id number] Medical Decision Making Differential Diagnosis Differential diagnosis: Etiologies such as metabolic, infection, hypo/hyperglycemia, electrolyte abnormalities, cardiac sources, intracerebral event, toxicologic, neurologic, as well as others were entertained. Medical Records Attestation: I reviewed the patient's medical records. Home Medications Current Medication List: was personally reviewed by me Laboratory Data Attestation: I reviewed the patient's lab results. Result diagrams: 08/26/18 00:19 08/26/18 00:19 Lab Results 08/26/18 08/26/18 08/26/18 Range/Units 00: 00:19 00:19 WBC 13.63 H (4.8-10.8) K/uL RBC 4.45 L (4.7-6.1) M/uL Hgb 14.1 (14.0-18.0) g/dL Hct 42.3 (42-52) % MCV 95.1 (80-100) fL MCH 31.7 (25-34) pg MCHC 33.3 (32-36) g/dL RDW Std Deviation 47.4 H (36.4-46.3) fL RDW Coeff of Ketan 13.9 (11.5-14.5) % Plt Count 178 (130-400) K/uL MPV 9.5 (7.4-10.4) fL Immature Gran % (Auto) 0.3 % Neut % (Auto) 75.1 % Lymph % (Auto) 10.3 % Wright % (Auto) 13.1 % Eos % (Auto) 1.0 % Baso % (Auto) 0.2 % Immature Gran # (Auto) 0.04 H (0.00-0.02) K/uL Neut # (Auto) 10.24 H (1.4-6.5) K/uL Lymph # (Auto) 1.41 (1.2-3.4) K/uL Wright # (Auto) 1.78 H (0.11-0.59) K/uL Eos # (Auto) 0.13 (0-0.5) K/uL Baso # (Auto) 0.03 (0-0.2) K/uL ESR (0-14) mm/hr Sodium 137 (136-145) mmol/L Potassium 4.3 (3.5-5.1) mmol/L Chloride 104 (98-107) mmol/L Carbon Dioxide 28 (21-32) mmol/L Anion Gap 5.0 (3-11) BUN 25 H (7-18) mg/dl Creatinine 1.56 H (0.6-1.4) mg/dl Est Cr Clr Drug Dosing 47.6 ml/min Est GFR ( Amer) 51.4 Est GFR (Non-Af Amer) 44.3 BUN/Creatinine Ratio 16.0 (10-20) Glucose 156 H (70-99) mg/dl Lactate 2.3 H* (0.4-2.0) mmol/L Calcium 9.6 (8.5-10.1) mg/dl Magnesium 1.8 (1.8-2.4) mg/dl Total Bilirubin 0.3 (0.2-1) mg/dl AST 10 L (15-37) U/L ALT 24 (12-78) U/L Alkaline Phosphatase 84 (45-117) U/L Troponin I < 0.015 (0-0.045) ng/ml Total Protein 7.0 (6.4-8.2) gm/dl Albumin 3.0 L (3.4-5.0) gm/dl Globulin 4.0 (2.5-4.0) gm/dl Albumin/Globulin Ratio 0.8 L (0.9-2) TSH 2.310 (0.300-4.500) uIu/ml Urine Color Urine Appearance (Clear) Urine pH (4.5-7.5) Ur Specific [place]berta (1.000-1.030) Urine Protein (Negative) Urine Glucose (UA) (Negative) Urine Ketones (Negative) Urine Blood (Negative) Urine Nitrite (Negative) Urine Bilirubin (Negative) Urine Urobilinogen (Negative) Ur Leukocyte Esterase (Negative) Urine WBC (Auto) (0-5) /hpf Urine RBC (Auto) (0-4) /hpf U Hyaline Cast (Auto) (0-5) /lpf U Epithel Cells (Auto) (0-5) /lpf Urine Bacteria (Auto) (Negative) 08/26/18 08/26/18 Range/Units 00:19 03:10 WBC (4.8-10.8) K/uL RBC (4.7-6.1) M/uL Hgb (14.0-18.0) g/dL Hct (42-52) % MCV (80-100) fL MCH (25-34) pg MCHC (32-36) g/dL RDW Std Deviation (36.4-46.3) fL RDW Coeff of Ketan (11.5-14.5) % Plt Count (130-400) K/uL MPV (7.4-10.4) fL Immature Gran % (Auto) % Neut % (Auto) % Lymph % (Auto) % Wright % (Auto) % Eos % (Auto) % Baso % (Auto) % Immature Gran # (Auto) (0.00-0.02) K/uL Neut # (Auto) (1.4-6.5) K/uL Lymph # (Auto) (1.2-3.4) K/uL Wright # (Auto) (0.11-0.59) K/uL Eos # (Auto) (0-0.5) K/uL Baso # (Auto) (0-0.2) K/uL ESR 69 H (0-14) mm/hr Sodium (136-145) mmol/L Potassium (3.5-5.1) mmol/L Chloride (98-107) mmol/L Carbon Dioxide (21-32) mmol/L Anion Gap (3-11) BUN (7-18) mg/dl Creatinine (0.6-1.4) mg/dl Est Cr Clr Drug Dosing ml/min Est GFR ( Amer) Est GFR (Non-Af Amer) BUN/Creatinine Ratio (10-20) Glucose (70-99) mg/dl Lactate (0.4-2.0) mmol/L Calcium (8.5-10.1) mg/dl Magnesium (1.8-2.4) mg/dl Total Bilirubin (0.2-1) mg/dl AST (15-37) U/L ALT (12-78) U/L Alkaline Phosphatase (45-117) U/L Troponin I (0-0.045) ng/ml Total Protein (6.4-8.2) gm/dl Albumin (3.4-5.0) gm/dl Globulin (2.5-4.0) gm/dl Albumin/Globulin Ratio (0.9-2) TSH (0.300-4.500) uIu/ml Urine Color Yellow Urine Appearance Cloudy H (Clear) Urine pH 5.5 (4.5-7.5) Ur Specific [place] 1.011 (1.000-1.030) Urine Protein Negative (Negative) Urine Glucose (UA) Negative (Negative) Urine Ketones Negative (Negative) Urine Blood Trace H (Negative) Urine Nitrite Negative (Negative) Urine Bilirubin Negative (Negative) Urine Urobilinogen Negative (Negative) Ur Leukocyte Esterase 2+ H (Negative) Urine WBC (Auto) >30 H (0-5) /hpf Urine RBC (Auto) 0-4 (0-4) /hpf U Hyaline Cast (Auto) 0 (0-5) /lpf U Epithel Cells (Auto) 0-5 (0-5) /lpf Urine Bacteria (Auto) 1+ H (Negative) Imaging Data Attestation: I personally reviewed and interpreted this imaging study as follows: My Impression: Single View Chest X-ray: 1. Post surgical change with persistent left pleural effusion. 2. No focal lung consolidation. 3. No failure. Foot X-ray: 1. Negative for acute bony fracture. 2. Negative for evidence suggesting osteomyelitis. Radiologist's Impression: Radiology results as stated below per my review and the radiologist's interpretation: CT HEAD: Comparison: CT head 07/13/18 Impression: No acute intracranial finding or significant interval change. Multiple old infarcts. No acute intracranial hemorrhage or mass effect. No CT evidence of acute transcortical infarct. Multiple regions of encephalomalacia are consistent with remote infarcts, similar to prior. Visualized paranasal sinuses and mastoid air cells are clear. Radiologist: Sarabjit Edgar MD Study ready at 00:50 and initial results transmitted at 00:54 ECG Data Attestation: I personally reviewed and interpreted this ECG as follows: Indication: weakness Rate (beats per minute): 74 Rhythm: normal sinus Findings: + other (poor quality baseline, low voltage, T-wave flattening lateral ly); no acute ischemic change and no ectopy MDM Narrative This patient was evaluated and appeared to be in no significant distress. Physical examination is consistent with an elderly gentleman with history of multiple strokes. IV access was obtained and laboratory work was drawn. Patient was placed on the child monitor. He is found to be in a normal sinus rhythm with a low voltage, however no significant ischemia noted. Patient was hydrated with normal saline solution. X-ray of the right foot was ordered secondary to the MTP joint redness and pain. There is no evidence of osteomyelitis to my review of the x-ray. Patient's sed rate is elevated at 67. Urinalysis is indicative of infection. Patient will be treated with IM ceftriaxone 1 g. Case was discussed with the hospitalist who will evaluate the patient for further management. Impression & Plan Weakness generalized, UTI (urinary tract infection) Discharge Plan Visit Data Chief Complaint: Weakness ED Provider: Beena Wilkerson Discharge Problem: Weakness generalized, UTI (urinary tract infection) Forms Stand Alone Forms: My [facility] Prescriptions Prescriptions: No Action hydralazine 10 mg tablet 10 mg PO TID RF: 0 trazodone 50 mg tablet 50 mg PO HS RF: 0 pravastatin 40 mg tablet 40 mg PO DAILY RF: 0 clopidogrel 75 mg tablet 75 mg PO QPM RF: 0 amlodipine 5 mg Tablet 5 mg PO QPM RF: 0 allopurinol 100 mg tablet 100 mg PO DAILY RF: 0 famotidine 20 mg tablet 20 mg PO BID RF: 0 metoprolol tartrate 50 mg tablet 50 mg PO Q8 RF: 0 multivitamin Tablet,Chewable 1 tab PO DAILY RF: 0 Prevagen 1 cap PO DAILY RF: 0 sennosides [Vegetable Laxative] 8.6 mg Tablet 8.6 mg PO BID PRN (Reason: Constipation) RF: 0 acetaminophen [Tylenol Arthritis Pain] 650 mg Tablet Extended Release 1,300 mg PO Q12H PRN (Reason: Pain) RF: 0 oxybutynin chloride 5 mg Tablet 5 mg PO TID PRN (Reason: Bladder Spasms) RF: 0 dutasteride 0.5 mg Capsule 0.5 mg PO DAILY RF: 0 biotin 2,500 mcg Capsule 2,500 mcg PO DAILY RF: 0 Vicks Nyquil Nighttime Relief 6.25-15-325 mg/15 mL Liquid 0.5 dose PO HS RF: 0 Turmeric/Curcumim 500 mg PO DAILY RF: 0 Vitamin B Energy 1 tab PO DAILY RF: 0 Discharge Problem: UTI (urinary tract infection) Qualifiers: Urinary tract infection type: acute cystitis Hematuria presence: without hematuria Qualified Code(s): N30.00 - Acute cystitis without hematuria The scribe's documentation has been prepared under my direction and personally reviewed by me in its entirety. I confirm that the note above accurately reflects all work, treatment, procedures, and medical decision making performed by me.
[2018-08-26] MEDS ORDERED: cefTRIAXone SODIUM 1,000 MG/50 ML BAG IV STA (04:03)
[2018-08-26 05:08] LABS: Partial Thromboplastin Time 27.1 Seconds (21.0-31.0)
[2018-08-26] MEDS ORDERED: ACETAMINOPHEN 325 MG TAB PO PRN (05:26)
[2018-08-26] MEDS ORDERED: TRAMADOL HCL 50 MG TABLET PO PRN (05:26)
[2018-08-26] MEDS ORDERED: NITROGLYCERIN SL 0.4 MG/TAB TAB SL PRN (05:26)
[2018-08-26] MEDS ORDERED: PROCHLORPERAZINE 5 MG in SYRINGE 4 ML IV PRN (05:26)
[2018-08-26] MEDS ORDERED: HYDROmorphone INJ 0.5 MG/0.5 ML SYR IV PRN (05:26)
[2018-08-26] MEDS ORDERED: predniSONE 20 MG TAB PO STA (05:30)
--- NOTE | 2018-08-26 05:33 | History & Physical Report ---
Date of Service August 26, 2018 Assessment & Plan (1) UTI (urinary tract infection): Complicated UTI Recurrent symptoms History BPH status post surgery No overt sepsis for now Hypertensive urgency secondary to discomfort CAD status post CABG CHF as per records (EF 60-64%, TTE 2016), patient dry to euvolemic PVD status post surgery history recurrent CVA hx ICH as per records COPD, past tobacco abuse Transient hypoxemia at the ER Patient denies chest pain, S OB symptoms Acute gout attack, right great toe\ CRI, creatinine baseline history of solitary kidney Hyperglycemia rule out DM Medical telemetry for hypertensive urgency Cultures, IV Ceftriaxone Facilitate home BP meds, may need titration Prednisone course for gout attack (Start with 30 mg daily, taper over 7 days once with response.) Check hemoglobin A1c PT OT eval DVT prophylaxis. Heparin subcu Full code History of Present Illness Chief Complaint: Fall, generalized weakness Primary Care Provider: Luis Armando Syed DO History obtained from patient and records. Medical history significant for CAD status post CABG, CHF as per records (EF 60- 64%, TTE 2016), PVD status post surgery, hypertension, history recurrent CVA, hx ICH, COPD, past tobacco abuse, gout, CRI baseline creatinine 1.5-1.6, history of solitary kidney. Recent confinement last month for sepsis secondary to E. coli UTI. Yesterday patient noted generalized weakness, achy bladder discomfort, falling down as per patient. No chest pain, no S OB. Right foot swollen as per . No fever, no chills. At the ER, patient received IV Ceftriaxone for UTI. Medical History as above Surgical History : CABG, carotid artery surgery, tracheostomy, nephrectomy, TU RP, Family History : Diabetes Personal/Social history : Past tobacco abuse, no EtOH intake, prior [employer] products, lives with Allergies Allergy/AdvReac Type Severity Reaction Status Date / Time aspirin AdvReac Intermediate RELAXES Verified 08/26/18 01:07 RECTUM atorvastatin AdvReac Intermediate RELAXED Verified 08/26/18 01:07 RECTAL SPHINCTER Home Medications Home Medications Medication Instructions Recorded Confirmed Type Prevagen 1 cap PO DAILY 07/13/18 08/26/18 History allopurinol 100 mg PO DAILY 07/13/18 08/26/18 History amlodipine 5 mg PO QPM 07/13/18 08/26/18 History clopidogrel 75 mg PO QPM 07/13/18 08/26/18 History famotidine 20 mg PO BID 07/13/18 08/26/18 History hydralazine 10 mg PO TID 07/13/18 08/26/18 History metoprolol tartrate 50 mg PO Q8 07/13/18 08/26/18 History multivitamin 1 tab PO DAILY 07/13/18 08/26/18 History pravastatin 40 mg PO DAILY 07/13/18 08/26/18 History trazodone 50 mg PO HS 07/13/18 08/26/18 History Turmeric/Curcumim 500 mg PO DAILY 08/26/18 08/26/18 History Vitamin B Energy 1 tab PO DAILY 08/26/18 08/26/18 History acetaminophen [Tylenol Arthritis 1,300 mg PO Q12H PRN 08/26/18 08/26/18 History Pain] biotin 2,500 mcg PO DAILY 08/26/18 08/26/18 History [id number] [Vicks 0.5 dose PO HS 08/26/18 08/26/18 History Nyquil Nighttime Relief] dutasteride 0.5 mg PO DAILY 08/26/18 08/26/18 History oxybutynin chloride 5 mg PO TID PRN 08/26/18 08/26/18 History sennosides [Vegetable Laxative] 8.6 mg PO BID PRN 08/26/18 08/26/18 History Past Med/Surg History Medical History Urinary retention (Chronic) Pulmonary nodule (Chronic) CXR [facility] 07/03/18: 1.3 cm right midlung nodule, slightly enlarged compared to 04/18/15. F/U with CT recommended. Hypertension (Chronic) COPD (chronic obstructive pulmonary disease) (Chronic) History of intracranial hemorrhage (Chronic) parenchymal hemorrhage perioperatively during / after carotid surgery CKD (chronic kidney disease), stage III (Chronic) Solitary kidney (Chronic) atrophic left kidney, nephrectomy performed for hypertension Dyslipidemia (Chronic) Chronic systolic CHF (congestive heart failure) (Chronic) Coronary artery disease (Chronic) s/p CABG Cerebrovascular disease (Chronic) s/p multiple ischemic strokes Stroke (Resolved) Peripheral vascular disease (Chronic) Surgical History Status post abdominal aortic aneurysm (AAA) repair (Chronic) Status post carotid endarterectomy (Chronic) Status post coronary artery bypass graft (Chronic) Status post nephrectomy (Chronic) left atrophic, nonfunctional associated with hypertension Status post transurethral resection of prostate (Chronic) Family History Sister Diabetes Other No significant family history Social History Preferred Language: Bel[place]ian Communication Ability: Effective Beliefs That Will Affect Care: None Current Living Situation: Spouse and Family Other Information That Helps Us Care for You: No Feels Safe at Home: Yes Safety Concerns: Feels Safe At This Time Smoking Status: Former smoker Hx Alcohol Use: No Hx Substance Use: No Review of Systems As per HPI, all 10 systems reviewed, all other ROS negative Physical Exam Vital Signs (Past 24 Hours): Last Vital Signs Temp 37.5 C 08/26/18 00:08 Pulse 81 08/26/18 05:00 Resp 20 08/26/18 05:00 BP 180/87 H 08/26/18 05:00 Pulse Ox 90 08/26/18 05:00 Physical Exam: GENERAL: Comfortable, obese, no respiratory distress SKIN: Normal color, warm HEENT: [place] palpebral conjunctivae, no ptosis, dry buccal mucosa NECK : Supple, short, no tenderness CHEST : Decreased breath sounds , no tenderness HEART : RRR, no obvious murmurs ABDOMEN: Some distention, nontender EXTREMITIES : Tender right great toe swelling , no other conspicuous deformities noted NEUROLOGIC : Coherent, no facial asymmetry, mild left hemiparesis (chronic), gait and stance not assessed Results & Data Laboratory Results Laboratory Results WBC 13.63 K/uL (4.8-10.8) H 08/26/18 00:19 RBC 4.45 M/uL (4.7-6.1) L 08/26/18 00:19 Hgb 14.1 g/dL (14.0-18.0) 08/26/18 00:19 Hct 42.3 % (42-52) 08/26/18 00:19 MCV 95.1 fL (80-100) 08/26/18 00:19 MCH 31.7 pg (25-34) 08/26/18 00:19 MCHC 33.3 g/dL (32-36) 08/26/18 00:19 RDW Std Deviation 47.4 fL (36.4-46.3) H 08/26/18 00: RDW Coeff of Ketan 13.9 % (11.5-14.5) 08/26/18 00: Plt Count 178 K/uL (130-400) 08/26/18 00:19 MPV 9.5 fL (7.4-10.4) 08/26/18 00: Immature Gran % (Auto) 0.3 % 08/26/18 00: Neut % (Auto) 75.1 % 08/26/18 00:19 Lymph % (Auto) 10.3 % 08/26/18 00:19 [place] % (Auto) 13.1 % 08/26/18 00: Eos % (Auto) 1.0 % 08/26/18 00: Baso % (Auto) 0.2 % 08/26/18 00:19 Immature Gran # (Auto) 0.04 K/uL (0.00-0.02) H 08/26/18 00:19 Neut # (Auto) 10.24 K/uL (1.4-6.5) H 08/26/18 00:19 Lymph # (Auto) 1.41 K/uL (1.2-3.4) 08/26/18 00:19 [place] # (Auto) 1.78 K/uL (0.11-0.59) H 08/26/18 00:19 Eos # (Auto) 0.13 K/uL (0-0.5) 08/26/18 00: Baso # (Auto) 0.03 K/uL (0-0.2) 08/26/18 00:19 ESR 69 mm/hr (0-14) H 08/26/18 00:19 APTT 27.1 Seconds (21.0-31.0) 08/26/18 00: PTT Ratio 1.0 08/26/18 00:28 Sodium 137 mmol/L (136-145) 08/26/18 00:19 Potassium 4.3 mmol/L (3.5-5.1) 08/26/18 00:19 Chloride 104 mmol/L (98-107) 08/26/18 00:19 Carbon Dioxide 28 mmol/L (21-32) 08/26/18 00:19 Anion Gap 5.0 (3-11) 08/26/18 00:19 BUN 25 mg/dl (7-18) H 08/26/18 00:19 Creatinine 1.56 mg/dl (0.6-1.4) H 08/26/18 00:19 Est Cr Clr Drug Dosing 47.6 ml/min 08/26/18 00:19 Est GFR ( Amer) 51.4 08/26/18 00: Est GFR (Non-Af Amer) 44.3 08/26/18 00:19 BUN/Creatinine Ratio 16.0 (10-20) 08/26/18 00: Glucose 156 mg/dl (70-99) H 08/26/18 00:19 Lactate 2.3 mmol/L (0.4-2.0) H* 08/26/18 00:19 Calcium 9.6 mg/dl (8.5-10.1) 08/26/18 00: Magnesium 1.8 mg/dl (1.8-2.4) 08/26/18 00: Total Bilirubin 0.3 mg/dl (0.2-1) 08/26/18 00: AST 10 U/L (15-37) L 08/26/18 00: ALT 24 U/L (12-78) 08/26/18 00: Alkaline Phosphatase 84 U/L (45-117) 08/26/18 00: Troponin I < 0.015 ng/ml (0-0.045) 08/26/18 00: Total Protein 7.0 gm/dl (6.4-8.2) 08/26/18 00: Albumin 3.0 gm/dl (3.4-5.0) L 08/26/18 00:19 Globulin 4.0 gm/dl (2.5-4.0) 08/26/18 00: Albumin/Globulin Ratio 0.8 (0.9-2) L 08/26/18 00: TSH 2.310 uIu/ml (0.300-4.500) 08/26/18 00:19 Urine Color Yellow 08/26/18 03:10 Urine Appearance Cloudy (Clear) H 08/26/18 03:10 Urine pH 5.5 (4.5-7.5) 08/26/18 03:10 Ur Specific [place] 1.011 (1.000-1.030) 08/26/18 03:10 Urine Protein Negative (Negative) 08/26/18 03:10 Urine Glucose (UA) Negative (Negative) 08/26/18 03:10 Urine Ketones Negative (Negative) 08/26/18 03:10 Urine Blood Trace (Negative) H 08/26/18 03:10 Urine Nitrite Negative (Negative) 08/26/18 03:10 Urine Bilirubin Negative (Negative) 08/26/18 03:10 Urine Urobilinogen Negative (Negative) 08/26/18 03:10 Ur Leukocyte Esterase 2+ (Negative) H 08/26/18 03:10 Urine WBC (Auto) >30 /hpf (0-5) H 08/26/18 03:10 Urine RBC (Auto) 0-4 /hpf (0-4) 08/26/18 03:10 U Hyaline Cast (Auto) 0 /lpf (0-5) 08/26/18 03:10 U Epithel Cells (Auto) 0-5 /lpf (0-5) 08/26/18 03:10 Urine Bacteria (Auto) 1+ (Negative) H 08/26/18 03:[address] head initial read: Multiple old infarcts, encephalomalacia CXR as per my interpretation atelectasis Right foot x-ray as per my interpretation no swelling EKG as per my interpretation: Rate 75, NSR, T wave flattening inferior leads, low voltage (1) UTI (urinary tract infection) Hematuria presence: without hematuria Urinary tract infection type: acute cystitis Qualified Code(s): N30.00 - Acute cystitis without hematuria
[2018-08-26] MEDS ORDERED: predniSONE 5 MG TAB ONE (05:51)
[2018-08-26 05:59] LABS: Base Excess VBG 3.1 mEq/L; Oxygen Saturation VBG 62.9 %; pH VBG 7.38 (7.36-7.41)
--- NOTE | 2018-08-26 06:17 | XRay Report ---
XR chest 1V portable CLINICAL HISTORY: weakness mental status change COMPARISON STUDY: 07/14/2017 FINDINGS: Mild stable cardiomegaly. Prior median sternotomy. Potential parenchymal infiltrate left ba se superimposed upon chronic pleural change. Right lung is clear. IMPRESSION: Potential superimposed infiltrate left base. Unchanging nodularity right base. The above report was generated using voice recognition software. It may contain grammatical, syntax or spelling errors. Electronically signed by: Juan Carson M.D. 08/26/2018 6:16 AM
--- NOTE | 2018-08-26 06:23 | CT Scan Report ---
CT head/brain wo con CT DOSE: 537.48 mGy.cm HISTORY: Mental status change weakness, amb dysfunction TECHNIQUE: Multiaxial CT images of the head were performed without the use of intravenous contrast. A dose lowering technique was utilized adhering to the principles of ALARA. Comparison: 07/13/2018 Findings: The paranasal sinuses and mastoid air cells are clear. Multiple old pre-existing cerebral i nfarcts in the right as well as left. These are unchanged in the prior study. There is no new or interval finding. There is no acute intracranial hemorrhage. Impression: 1. No acute intracranial abnormality. 2. Multiple old infarcts throughout both cerebral hemispheres. The above report was generated using voice recognition software. It may contain grammatical, syntax or spelling errors. Electronically signed by: Juan Carson M.D. 08/26/2018 6:22 AM
[2018-08-26] MEDS ORDERED: OXYBUTYNIN CHLORIDE 5 MG TAB PO PRN (06:26)
[2018-08-26] MEDS ORDERED: SENNA 8.6 MG TAB PO PRN (06:26)
--- NOTE | 2018-08-26 06:26 | XRay Report ---
XR foot RT 2V CLINICAL HISTORY: Right first MTP swelling, red pain. Edema. COMPARISON: None. DISCUSSION: The bones and joint spaces appear intact. There is no evidence of fracture, dislocation o r bony disease. There is no evidence for soft tissue swelling. IMPRESSION: Negative study. The above report was generated using voice recognition software. It may contain grammatical, syntax or spelling errors. Electronically signed by: Juan Carson M.D. 08/26/2018 6:25 AM
[2018-08-26 06:53] LABS: Prothrombin Time 9.8 Seconds (9.0-12.0)
[2018-08-26 06:57] LABS: Estimated Average Glucose 128 mg/dl; Hemoglobin A1C 6.1 % (4.5-5.6)
[2018-08-26] MEDS: HydrALAZINE 10 MG TAB PO SCH ×3 (07:57→20:59)
[2018-08-26] MEDS: PRAVASTATIN SOD 40 MG TAB PO SCH (07:58)
[2018-08-26] MEDS: METOPROLOL TARTRATE 50 MG TAB PO SCH ×3 (07:58→20:58)
[2018-08-26] MEDS: MULTIVITAMIN TAB PO SCH (07:58)
[2018-08-26] MEDS: FAMOTIDINE 20 MG TAB PO SCH ×2 (07:58→20:58)
[2018-08-26] MEDS: ALLOPURINOL 100 MG TAB PO SCH (07:58)
[2018-08-26] MEDS: HEPARIN SOD 5,000 UNIT/0.5 ML VIAL SQ SCH ×3 (08:04→20:56)
--- NOTE | 2018-08-26 09:42 | Hospitalist Progress Note ---
Date of Service August 26, 2018 Assessment & Plan (1) UTI (urinary tract infection): Complicated UTI Recurrent symptoms History BPH status post surgery No signs of sepsis Urine cultures pending Afebrile, white count 13 K On empiric ceftriaxone IV day #1 Hypertensive urgency secondary to discomfort Continue usual BP meds, monitor closely Possible acute gout attack, right great toe Prednisone started Question on whether or not patient has a component of cellulitis, on ceftriaxone IV Monitor closely CAD status post CABG No cardiac symptoms Continue usual cardiac medications CHF as per records (EF 60-64%, TTE 2016) Euvolemic PVD status post surgery history recurrent CVA Continue Plavix hx ICH as per records COPD, past tobacco abuse Not in exacerbation Transient hypoxemia at the ER, O2 sats more than 90% CRI, creatinine baseline history of solitary kidney Hyperglycemia rule out DM A1c 6.1 Monitor as an outpatient PT OT eval DVT prophylaxis. Heparin subcu Full code Subjective Follow-up for weakness, UTI Seen resting in bed, comfortable States he feels improved today compared to yesterday Dysuria improving Right great toe pain and foot pain improving Denies headache, chest pain, dyspnea palpitations, dizziness No other symptoms Physical Exam Vital Signs (Past 24 Hours): Last Vital Signs Temp 36.8 C 08/26/18 07:55 Pulse 81 08/26/18 07:55 Resp 18 08/26/18 07:55 BP 173/82 H 08/26/18 07:55 Pulse Ox 92 08/26/18 07:55 Physical Exam: General- oriented x 3, not in distress, speaks in sentences with no effort or accessory muscle use Head- atraumatic Eyes- PERRL, EOMI, anicteric ENT- oropharynx clear Neck- supple, no JVD, no adenopathy, no thyromegaly; carotids +2/2, no bruits appreciated Lungs- clear to auscultation bilaterally, no rales/wheezes Heart- normal rate, regular rhythm; no murmur, no gallop, no rub appreciated Abdomen- normal bowel sounds, nondistended, soft, nontender, no masses or hepatosplenomegaly Extremities-positive mild edema and erythema on the MTP joint right, exquisitely tender, but no discharge or bleeding Positive mild edema of the dorsum of the right foot, no pretibial edema, no calf tenderness; peripheral pulses intact Neuro- alert, oriented x 3; CN 2-12 grossly intact; motor 5/5 bilaterally;sensation 100% on all extremities; no other gross focal neurologic deficits Skin- warm & dry Results & Data Laboratory Results Laboratory Results - last 24 hr 08/26/18 08/26/18 08/26/18 00:19 00:19 00:19 WBC 13.63 H RBC 4.45 L Hgb 14.1 Hct 42.3 MCV 95.1 MCH 31.7 MCHC 33.3 RDW Std Deviation 47.4 H RDW Coeff of Ketan 13.9 Plt Count 178 MPV 9.5 Immature Gran % (Auto) 0.3 Neut % (Auto) 75.1 Lymph % (Auto) 10.3 [place] % (Auto) 13.1 Eos % (Auto) 1.0 Baso % (Auto) 0.2 Immature Gran # (Auto) 0.04 H Neut # (Auto) 10.24 H Lymph # (Auto) 1.41 [place] # (Auto) 1.78 H Eos # (Auto) 0.13 Baso # (Auto) 0.03 ESR PT INR APTT PTT Ratio VBG pH VBG pCO2 VBG pO2 VBG HCO3 VBG O2 Saturation VBG Base Excess Barometric Pressure Sodium 137 Potassium 4.3 Chloride 104 Carbon Dioxide 28 Anion Gap 5.0 BUN 25 H Creatinine 1.56 H Est Cr Clr Drug Dosing 47.6 Est GFR ( Amer) 51.4 Est GFR (Non-Af Amer) 44.3 BUN/Creatinine Ratio 16.0 Glucose 156 H Estimat Average Glucose Hemoglobin A1c Lactate 2.3 H* Calcium 9.6 Magnesium 1.8 Total Bilirubin 0.3 AST 10 L ALT 24 Alkaline Phosphatase 84 Troponin I < 0.015 Total Protein 7.0 Albumin 3.0 L Globulin 4.0 Albumin/Globulin Ratio 0.8 L TSH 2.310 Urine Color Urine Appearance Urine pH Ur Specific [place] Urine Protein Urine Glucose (UA) Urine Ketones Urine Blood Urine Nitrite Urine Bilirubin Urine Urobilinogen Ur Leukocyte Esterase Urine WBC (Auto) Urine RBC (Auto) U Hyaline Cast (Auto) U Epithel Cells (Auto) Urine Bacteria (Auto) 08/26/18 08/26/18 08/26/18 00:19 00:19 00:28 WBC RBC Hgb Hct MCV MCH MCHC RDW Std Deviation RDW Coeff of Ketan Plt Count MPV Immature Gran % (Auto) Neut % (Auto) Lymph % (Auto) [place] % (Auto) Eos % (Auto) Baso % (Auto) Immature Gran # (Auto) Neut # (Auto) Lymph # (Auto) [place] # (Auto) Eos # (Auto) Baso # (Auto) ESR 69 H PT INR APTT 27.1 PTT Ratio 1.0 VBG pH VBG pCO2 VBG pO2 VBG HCO3 VBG O2 Saturation VBG Base Excess Barometric Pressure Sodium Potassium Chloride Carbon Dioxide Anion Gap BUN Creatinine Est Cr Clr Drug Dosing Est GFR ( Amer) Est GFR (Non-Af Amer) BUN/Creatinine Ratio Glucose Estimat Average Glucose 128 Hemoglobin A1c 6.1 H Lactate Calcium Magnesium Total Bilirubin AST ALT Alkaline Phosphatase Troponin I Total Protein Albumin Globulin Albumin/Globulin Ratio TSH Urine Color Urine Appearance Urine pH Ur Specific [place] Urine Protein Urine Glucose (UA) Urine Ketones Urine Blood Urine Nitrite Urine Bilirubin Urine Urobilinogen Ur Leukocyte Esterase Urine WBC (Auto) Urine RBC (Auto) U Hyaline Cast (Auto) U Epithel Cells (Auto) Urine Bacteria (Auto) 08/26/18 08/26/18 08/26/18 00:28 03:10 05:21 WBC RBC Hgb Hct MCV MCH MCHC RDW Std Deviation RDW Coeff of Ketan Plt Count MPV Immature Gran % (Auto) Neut % (Auto) Lymph % (Auto) [place] % (Auto) Eos % (Auto) Baso % (Auto) Immature Gran # (Auto) Neut # (Auto) Lymph # (Auto) [place] # (Auto) Eos # (Auto) Baso # (Auto) ESR PT 9.8 INR 1.0 APTT PTT Ratio VBG pH VBG pCO2 VBG pO2 VBG HCO3 VBG O2 Saturation VBG Base Excess Barometric Pressure Sodium Potassium Chloride Carbon Dioxide Anion Gap BUN Creatinine Est Cr Clr Drug Dosing Est GFR ( Amer) Est GFR (Non-Af Amer) BUN/Creatinine Ratio Glucose Estimat Average Glucose Hemoglobin A1c Lactate 1.1 Calcium Magnesium Total Bilirubin AST ALT Alkaline Phosphatase Troponin I Total Protein Albumin Globulin Albumin/Globulin Ratio TSH Urine Color Yellow Urine Appearance Cloudy H Urine pH 5.5 Ur Specific [place] 1.011 Urine Protein Negative Urine Glucose (UA) Negative Urine Ketones Negative Urine Blood Trace H Urine Nitrite Negative Urine Bilirubin Negative Urine Urobilinogen Negative Ur Leukocyte Esterase 2+ H Urine WBC (Auto) >30 H Urine RBC (Auto) 0-4 U Hyaline Cast (Auto) 0 U Epithel Cells (Auto) 0-5 Urine Bacteria (Auto) 1+ H 08/26/18 05:21 WBC RBC Hgb Hct MCV MCH MCHC RDW Std Deviation RDW Coeff of Ketan Plt Count MPV Immature Gran % (Auto) Neut % (Auto) Lymph % (Auto) [place] % (Auto) Eos % (Auto) Baso % (Auto) Immature Gran # (Auto) Neut # (Auto) Lymph # (Auto) [place] # (Auto) Eos # (Auto) Baso # (Auto) ESR PT INR APTT PTT Ratio VBG pH 7.38 VBG pCO2 51 H VBG pO2 32 VBG HCO3 29 VBG O2 Saturation 62.9 VBG Base Excess 3.1 Barometric Pressure 734.9 Sodium Potassium Chloride Carbon Dioxide Anion Gap BUN Creatinine Est Cr Clr Drug Dosing Est GFR ( Amer) Est GFR (Non-Af Amer) BUN/Creatinine Ratio Glucose Estimat Average Glucose Hemoglobin A1c Lactate Calcium Magnesium Total Bilirubin AST ALT Alkaline Phosphatase Troponin I Total Protein Albumin Globulin Albumin/Globulin Ratio TSH Urine Color Urine Appearance Urine pH Ur Specific [place] Urine Protein Urine Glucose (UA) Urine Ketones Urine Blood Urine Nitrite Urine Bilirubin Urine Urobilinogen Ur Leukocyte Esterase Urine WBC (Auto) Urine RBC (Auto) U Hyaline Cast (Auto) U Epithel Cells (Auto) Urine Bacteria (Auto) (1) UTI (urinary tract infection) Hematuria presence: without hematuria Urinary tract infection type: acute cystitis Qualified Code(s): N30.00 - Acute cystitis without hematuria
[2018-08-26] MEDS: AMLODIPINE BESYLATE 5 MG TAB PO SCH (20:58)
[2018-08-26] MEDS: TRAZODONE HCL 50 MG TAB PO SCH (20:59)
[2018-08-26] MEDS: CLOPIDOGREL BISULFATE 75 MG TAB PO SCH (21:00)
[2018-08-27] MEDS: cefTRIAXone SODIUM 1,000 MG in DEXTROSE 5% 50 ML IV SCH (05:21)
[2018-08-27] MEDS: METOPROLOL TARTRATE 50 MG TAB PO SCH ×3 (05:26→21:32)
[2018-08-27] MEDS: HEPARIN SOD 5,000 UNIT/0.5 ML VIAL SQ SCH ×3 (05:27→21:33)
[2018-08-27 07:20] LABS: Basophils # (auto) 0.04 K/uL (0-0.2); Basophils % (auto) 0.4 %; Eosinophils # (auto) 0.12 K/uL (0-0.5); Eosinophils % (auto) 1.1 %; Hematocrit (blood only) 46.3 % (42-52); Hemoglobin 15.2 g/dL (14.0-18.0); Immature Granulocytes # (auto) 0.03 K/uL (0.00-0.02); Immature Granulocytes % (auto) 0.3 %; Lymphocytes # (auto) 2.92 K/uL (1.2-3.4); Lymphocytes % (auto) 26.6 %; Mean Corpuscular Hgb Conc 32.8 g/dL (32-36); Mean Corpuscular Volume 95.3 fL (80-100); Mean Platelet Volume 9.9 fL (7.4-10.4); Monocytes # (auto) 1.66 K/uL (0.11-0.59); Monocytes % (auto) 15.1 %; Neutrophils # (auto) 6.19 K/uL (1.4-6.5); Neutrophils % (auto) 56.5 %; Platelet Count 206 K/uL (130-400); RDW Coefficient of Variation 13.6 % (11.5-14.5); RDW Standard Deviation 47.2 fL (36.4-46.3); Red Blood Count 4.86 M/uL (4.7-6.1); White Blood Count 10.96 K/uL (4.8-10.8)
[2018-08-27] MEDS: PRAVASTATIN SOD 40 MG TAB PO SCH (07:42)
[2018-08-27] MEDS: HydrALAZINE 10 MG TAB PO SCH ×3 (07:42→21:31)
[2018-08-27] MEDS: MULTIVITAMIN TAB PO SCH (07:42)
[2018-08-27] MEDS: FAMOTIDINE 20 MG TAB PO SCH ×2 (07:42→21:33)
[2018-08-27] MEDS: predniSONE 10 MG TABLET PO SCH (07:42)
[2018-08-27] MEDS: ALLOPURINOL 100 MG TAB PO SCH (07:43)
[2018-08-27 08:03] LABS: BUN Creatinine Ratio 17.6 (10-20); Calcium 9.8 mg/dl (8.5-10.1); Creatinine Clr Calc Pharmacy 51.8 ml/min; Est GFR (African American) 57.6; Est GFR (Non-African American) 49.7; Potassium 3.8 mmol/L (3.5-5.1)
--- NOTE | 2018-08-27 14:46 | Hospitalist Progress Note ---
Date of Service August 27, 2018 Assessment & Plan (1) UTI (urinary tract infection): Complicated UTI Recurrent symptoms History BPH status post surgery Urine cultures -growing gram-negative bacilli, sensitivities pending Afebrile, white count 13 K On ceftriaxone IV day #2 Clinically a lot better we will continue current treatment Hypertensive urgency likely Secondary to discomfort Continue usual BP meds, monitor closely Possible acute gout attack, right great toe Prednisone started Question on whether or not patient has a component of cellulitis, on ceftriaxone IV Right great toe pain is improving CAD status post CABG No cardiac symptoms Continue usual cardiac medications CHF as per records (EF 60-64%, TTE 2016) No signs of fluid overload Continue current medications PVD status post surgery history recurrent CVA Continue Plavix hx ICH as per records COPD, past tobacco abuse Not in exacerbation Transient hypoxemia at the ER, O2 sats more than 90% CRI, creatinine baseline history of solitary kidney Hyperglycemia rule out DM A1c 6.1 Monitor as an outpatient Generalized weakness; multifactorial PT OT eval DVT prophylaxis. Heparin subcu Full code Subjective 08/27 The patient was seen and examined in medical floor in presence of the family members He has been feeling a lot better Denies any urinary symptoms Weakness has been improving Physical Exam Vital Signs (Past 24 Hours): Last Vital Signs Temp 36.8 C 08/27/18 11:31 Pulse 76 08/27/18 11:31 Resp 18 08/27/18 11:31 BP 171/89 H 08/27/18 11:31 Pulse Ox 92 08/27/18 11:31 Physical Exam: No apparent distress at rest Constitutional: WD/WN, vitals as above Eyes: PERRL, conjunctivae normal, anicteric sclerae ENMT: external ear and nose normal, oropharynx normal Neck: trachea midline, no thyromegaly Respiratory: normal respiratory effort Auscultation: lungs clear to auscultation bilaterally Cardiovascular: Rate/Rhythm: regular rate and regular rhythm Heart Sounds: normal S1 and normal S2 Gastrointestinal (Abdomen): Inspection/Auscultation: abdomen normal to inspection and normal bowel sounds Percussion/Palpation: + abdomen tender (Minimally tender hypogastrium and renal angles) Neurologic: Alert, awake and oriented x3. Generally weak Results & Data Laboratory Results Short CBC 08/27/18 Range/Units 06:20 WBC 10.96 H (4.8-10.8) K/uL Hgb 15.2 (14.0-18.0) g/dL Hct 46.3 (42-52) % Plt Count 206 (130-400) K/uL [facility] 08/27/18 06:20 Sodium 138 Potassium 3.8 Chloride 105 Carbon Dioxide 27 BUN 25 H Creatinine 1.42 H Glucose 92 Calcium 9.8 Medications Administered Current Inpatient Medications Acetaminophen (Tylenol) 650 mg PO Q4H PRN PRN Reason: Pain or Fever Stop: 09/25/18 05:25 Allopurinol (Zyloprim) 100 mg PO DAILY [facility] Stop: 09/25/18 08:59 Last Admin: 08/27/18 07:43 Dose: 100 mg Documented by: Amlodipine Besylate (Norvasc) 5 mg PO QPM [facility] Stop: 09/25/18 20:59 Last Admin: 08/26/18 20:58 Dose: 5 mg Documented by: Clopidogrel Bisulfate (Plavix) 75 mg PO QPM [facility] Stop: 09/25/18 20:59 Last Admin: 08/26/18 21:00 Dose: 75 mg Documented by: Famotidine (Pepcid) 20 mg PO BID [facility] Stop: 09/25/18 08:59 Last Admin: 08/27/18 07:42 Dose: 20 mg Documented by: Heparin Sodium (Porcine) (Heparin Sodium (Porcine)) 5,000 units SQ Q8 [facility] Stop: 09/25/18 07:59 Last Admin: 08/27/18 13:51 Dose: 5,000 units Documented by: Hydralazine HCl (Apresoline) 10 mg PO TID [facility] Stop: 09/25/18 06:25 Last Admin: 08/27/18 13:51 Dose: 10 mg Documented by: Hydromorphone HCl (Dilaudid) 0.5 mg IV Q3H PRN PRN Reason: Pain Stop: 09/09/18 05:25 Ceftriaxone Sodium 1,000 mg/ (Dextrose) 50 mls @ 100 mls/hr IV Q24H [facility]; Protocol Stop: 09/06/18 05:59 Last Infusion: 08/27/18 06:12 Dose: Infused Documented by: Prochlorperazine 5 mg/ Syringe 5 mls @ 5 mls/min IV Q6H PRN PRN Reason: Nausea And Vomiting Stop: 09/25/18 05:25 Metoprolol Tartrate (Lopressor) 50 mg PO Q8 [facility] Stop: 09/25/18 06:25 Last Admin: 08/27/18 13:51 Dose: 50 mg Documented by: Miscellaneous (Order Awaiting Action) 1 ea N/A QS [facility] Stop: 09/25/18 07:59 Last Admin: 08/27/18 07:33 Dose: Not Given Documented by: Multivitamins (Multivitamin Tab) 1 tab PO DAILY [facility] Stop: 09/25/18 08:59 Last Admin: 08/27/18 07:42 Dose: 1 tab Documented by: Nitroglycerin (Nitrostat) 0.4 mg SL UD PRN PRN Reason: Chest Pain Stop: 09/25/18 05:25 Oxybutynin Chloride (Ditropan) 5 mg PO TID PRN PRN Reason: Bladder Spasms Stop: 09/25/18 06:25 Pravastatin Sodium (Pravachol) 40 mg PO DAILY [facility] Stop: 09/25/18 08:59 Last Admin: 08/27/18 07:42 Dose: 40 mg Documented by: Prednisone (Prednisone) 30 mg PO DAILY [facility] Stop: 09/26/18 08:59 Last Admin: 08/27/18 07:42 Dose: 30 mg Documented by: Sennosides (Senokot) 8.6 mg PO BID PRN PRN Reason: Constipation Stop: 09/25/18 06:25 Tramadol HCl (Ultram) 25 - 50 mg PO Q4H PRN PRN Reason: Pain Stop: 09/25/18 05:25 Trazodone HCl (Desyrel) 50 mg PO HS [facility] Stop: 09/25/18 20:59 Last Admin: 08/26/18 20:59 Dose: 50 mg Documented by: (1) UTI (urinary tract infection) Hematuria presence: without hematuria Urinary tract infection type: acute cystitis Qualified Code(s): N30.00 - Acute cystitis without hematuria
[2018-08-27] MEDS: AMLODIPINE BESYLATE 5 MG TAB PO SCH (21:31)
[2018-08-27] MEDS: CLOPIDOGREL BISULFATE 75 MG TAB PO SCH (21:32)
[2018-08-27] MEDS: TRAZODONE HCL 50 MG TAB PO SCH (21:33)
[2018-08-28] MEDS: METOPROLOL TARTRATE 50 MG TAB PO SCH ×3 (05:48→22:08)
[2018-08-28] MEDS: HEPARIN SOD 5,000 UNIT/0.5 ML VIAL SQ SCH ×3 (05:50→22:08)
[2018-08-28] MEDS: cefTRIAXone SODIUM 1,000 MG in DEXTROSE 5% 50 ML IV SCH (05:51)
[2018-08-28] MEDS: MULTIVITAMIN TAB PO SCH (08:15)
[2018-08-28] MEDS: ALLOPURINOL 100 MG TAB PO SCH (08:15)
[2018-08-28] MEDS: HydrALAZINE 10 MG TAB PO SCH ×3 (08:15→20:39)
[2018-08-28] MEDS: predniSONE 10 MG TABLET PO SCH (08:15)
[2018-08-28] MEDS: PRAVASTATIN SOD 40 MG TAB PO SCH (08:15)
[2018-08-28] MEDS: FAMOTIDINE 20 MG TAB PO SCH ×2 (08:15→20:40)
[2018-08-28] MEDS ORDERED: ERTAPENEM CONSULT ACTIVE PRN (08:47)
[2018-08-28] MEDS: ERTAPENEM SODIUM 1,000 MG in SODIUM CHLORIDE 0.9% 50 ML IV SCH (10:53)
[2018-08-28] MEDS ORDERED: AMLODIPINE BESYLATE 5 MG TAB PO ONE (13:15)
[2018-08-28] MEDS: AMLODIPINE BESYLATE 5 MG TAB PO SCH (20:40)
[2018-08-28] MEDS: TRAZODONE HCL 50 MG TAB PO SCH (20:40)
[2018-08-28] MEDS: CLOPIDOGREL BISULFATE 75 MG TAB PO SCH (20:41)
[2018-08-29] MEDS: HEPARIN SOD 5,000 UNIT/0.5 ML VIAL SQ SCH ×3 (06:25→22:10)
[2018-08-29] MEDS: METOPROLOL TARTRATE 50 MG TAB PO SCH ×3 (06:25→22:11)
--- NOTE | 2018-08-29 07:23 | Infectious Disease Consult ---
Date of Consultation August 29, 2018 Assessment & Plan (1) UTI (urinary tract infection): Agree with Ertapenem, would give 7 day course. History of Present Illness Attending Physician: Felton Morrison MD pt admitted with weakness and dysuria. UA with >30 wbc and +1 bacteria. culture grew ESBL+ E. coli, was initially on ctx, changed to Ertapenem yesterday, tolerating well. feeling much better. wbc 13 in ER, improved to 10. Blood cultures negative to date. no dysuria currently. no f/c. afebrile since admission. had pain in right foot, x ray negative, felt to be gout, given prednisone, now improved. no pain on my exam. Denies n/v/d/abd pain, eating well. no cp, sob, cough, no dysuria, urgency currently. tolerating abx. Allergies Allergy/AdvReac Type Severity Reaction Status Date / Time aspirin AdvReac Intermediate RELAXES Verified 08/26/18 01:07 RECTUM atorvastatin AdvReac Intermediate RELAXED Verified 08/26/18 01:07 RECTAL SPHINCTER Home Medications Home Medications Medication Instructions Recorded Confirmed Type Prevagen 1 cap PO DAILY 07/13/18 08/26/18 History allopurinol 100 mg PO DAILY 07/13/18 08/26/18 History amlodipine 5 mg PO QPM 07/13/18 08/26/18 History clopidogrel 75 mg PO QPM 07/13/18 08/26/18 History famotidine 20 mg PO BID 07/13/18 08/26/18 History hydralazine 10 mg PO TID 07/13/18 08/26/18 History metoprolol tartrate 50 mg PO Q8 07/13/18 08/26/18 History multivitamin 1 tab PO DAILY 07/13/18 08/26/18 History pravastatin 40 mg PO DAILY 07/13/18 08/26/18 History trazodone 50 mg PO HS 07/13/18 08/26/18 History Turmeric/Curcumim 500 mg PO DAILY 08/26/18 08/26/18 History Vitamin B Energy 1 tab PO DAILY 08/26/18 08/26/18 History acetaminophen [Tylenol Arthritis 1,300 mg PO Q12H PRN 08/26/18 08/26/18 History Pain] biotin 2,500 mcg PO DAILY 08/26/18 08/26/18 History [id number] [Vicks 0.5 dose PO HS 08/26/18 08/26/18 History Nyquil Nighttime Relief] dutasteride 0.5 mg PO DAILY 08/26/18 08/26/18 History oxybutynin chloride 5 mg PO TID PRN 08/26/18 08/26/18 History sennosides [Vegetable Laxative] 8.6 mg PO BID PRN 08/26/18 08/26/18 History Patient History Medical History Urinary retention (Chronic) Pulmonary nodule (Chronic) CXR [facility] 07/03/18: 1.3 cm right midlung nodule, slightly enlarged compared to 04/18/15. F/U with CT recommended. Hypertension (Chronic) COPD (chronic obstructive pulmonary disease) (Chronic) History of intracranial hemorrhage (Chronic) parenchymal hemorrhage perioperatively during / after carotid surgery CKD (chronic kidney disease), stage III (Chronic) Solitary kidney (Chronic) atrophic left kidney, nephrectomy performed for hypertension Dyslipidemia (Chronic) Chronic systolic CHF (congestive heart failure) (Chronic) Coronary artery disease (Chronic) s/p CABG Cerebrovascular disease (Chronic) s/p multiple ischemic strokes Stroke (Resolved) Peripheral vascular disease (Chronic) Surgical History Status post abdominal aortic aneurysm (AAA) repair (Chronic) Status post carotid endarterectomy (Chronic) Status post coronary artery bypass graft (Chronic) Status post nephrectomy (Chronic) left atrophic, nonfunctional associated with hypertension Status post transurethral resection of prostate (Chronic) Family History Sister Diabetes Other No significant family history Social History Communication Ability: Effective Beliefs That Will Affect Care: None Current Living Situation: Spouse and Family Other Information That Helps Us Care for You: No Feels Safe at Home: Yes Safety Concerns: Feels Safe At This Time Smoking Status: Former smoker Hx Alcohol Use: No Hx Substance Use: No Review of Systems all remaining ros reviewed and are negative Physical Exam Vital Signs (Past 24 Hours): Last Vital Signs Temp 36.7 C 08/29/18 07:00 Pulse 58 L 08/29/18 07:00 Resp 20 08/29/18 07:00 BP 156/78 H 08/29/18 07:00 Pulse Ox 93 08/29/18 07:00 Constitutional: WD/WN, vitals as above Eyes: PERRL, conjunctivae normal, anicteric sclerae ENMT: external ear and nose normal, oropharynx normal Neck: normal visual inspection Respiratory: normal respiratory effort, lungs clear to auscultation Cardiovascular: RRR, no murmur, no edema Gastrointestinal (Abdomen): normal bowel sounds, soft, nontender, no hepatosplenomegaly Musculoskeletal: no cyanosis or clubbing, extremities motor strength 5/5 Skin: no rashes, warm and dry Psychiatric: A+Ox3, euthymic affect Results & Data Laboratory Results Microbiology 08/26/18 03:10 Urine,Random Urine Culture - Final Escherichia coli ESBL 08/26/18 00:27 Blood Blood Culture - Preliminary No growth to date. 08/26/18 00:18 Blood Blood Culture - Preliminary No growth to date. (1) UTI (urinary tract infection) Hematuria presence: without hematuria Urinary tract infection type: acute cystitis Qualified Code(s): N30.00 - Acute cystitis without hematuria
--- NOTE | 2018-08-29 07:53 | Hospitalist Progress Note ---
Date of Service August 29, 2018 delayed entry date of service 08/28/18 Assessment & Plan (1) UTI (urinary tract infection): Complicated UTI Recurrent symptoms History BPH status post surgery Urine cultures -growing ESBL E. coli Improving overall Ceftriaxone IV changed to ertapenem IV ID consulted Hypertensive urgency likely Secondary to discomfort Continue usual BP meds, monitor closely Possible acute gout attack, right great toe Prednisone started Improving CAD status post CABG No cardiac symptoms Continue usual cardiac medications CHF as per records (EF 60-64%, TTE 2016) No signs of fluid overload Continue current medications PVD status post surgery history recurrent CVA Continue Plavix hx ICH as per records COPD, past tobacco abuse Not in exacerbation Transient hypoxemia at the ER, O2 sats more than 90% CRI, creatinine baseline history of solitary kidney Hyperglycemia rule out DM A1c 6.1 Monitor as an outpatient Generalized weakness; multifactorial PT OT eval DVT prophylaxis. Heparin subcu Full code Subjective Possible UTI, acute gout Seen resting in bed, at the bedside States she feels improved overall Denies confusion, strength improving excellent denies abdominal pain, dysuria Right foot and great toe also improving No other symptoms Physical Exam Vital Signs (Past 24 Hours): Last Vital Signs Temp 36.7 C 08/29/18 07:00 Pulse 58 L 08/29/18 07:00 Resp 20 08/29/18 07:00 BP 156/78 H 08/29/18 07:00 Pulse Ox 93 08/29/18 07:00 Physical Exam: General- oriented x 3, not in distress, speaks in sentences with no effort or accessory muscle use Eyes- anicteric Neck- no JVD Lungs- clear BS BL Heart- normal rate, regular rhythm; no murmurs Abdomen- normal bowel sounds, nondistended, soft, nontender Extremities- no pretibial edema, no calf tenderness Right foot: Mild erythema on the great toe area, no warmth or tenderness Dorsum of the right foot negative for edema, tenderness, erythema Neuro- alert, oriented x 3; no gross focal neurologic deficits Skin- warm & dry Results & Data Laboratory Results Noted and reviewed (1) UTI (urinary tract infection) Hematuria presence: without hematuria Urinary tract infection type: acute cystitis Qualified Code(s): N30.00 - Acute cystitis without hematuria
[2018-08-29 07:57] LABS: Hematocrit (blood only) 45.8 % (42-52); Hemoglobin 15.5 g/dL (14.0-18.0); Mean Corpuscular Hgb Conc 33.8 g/dL (32-36); Mean Corpuscular Volume 94.8 fL (80-100); Mean Platelet Volume 9.2 fL (7.4-10.4); Platelet Count 235 K/uL (130-400); RDW Coefficient of Variation 13.5 % (11.5-14.5); RDW Standard Deviation 46.6 fL (36.4-46.3); Red Blood Count 4.83 M/uL (4.7-6.1); White Blood Count 12.03 K/uL (4.8-10.8)
[2018-08-29 08:33] LABS: Creatinine Clr Calc Pharmacy 51.2 ml/min; Est GFR (African American) 57.1; Est GFR (Non-African American) 49.3
[2018-08-29] MEDS: ERTAPENEM SODIUM 1,000 MG in SODIUM CHLORIDE 0.9% 50 ML IV SCH (09:20)
[2018-08-29] MEDS: FAMOTIDINE 20 MG TAB PO SCH ×2 (09:20→20:07)
[2018-08-29] MEDS: HydrALAZINE 10 MG TAB PO SCH ×3 (09:20→20:06)
[2018-08-29] MEDS: MULTIVITAMIN TAB PO SCH (09:21)
[2018-08-29] MEDS: PRAVASTATIN SOD 40 MG TAB PO SCH (09:21)
[2018-08-29] MEDS: predniSONE 10 MG TABLET PO SCH (09:21)
[2018-08-29] MEDS: ALLOPURINOL 100 MG TAB PO SCH (09:22)
--- NOTE | 2018-08-29 09:37 | Hospitalist Progress Note ---
Date of Service August 29, 2018 Assessment & Plan (1) UTI (urinary tract infection): Complicated UTI Recurrent symptoms History BPH status post surgery Urine cultures -growing ESBL E. coli Improving overall Ceftriaxone IV changed to ertapenem IV day #2/7 ID consulted, recommend 7 days of ertapenem Case management on board: Checking with patient can be covered by insurance for home IV antibiotics or if he needs to go to [facility] daily to complete IV antibiotics Hypertensive urgency likely Secondary to discomfort not At goal Amlodipine increased from 5 to 10 mg p.o. daily Monitor blood pressure Possible acute gout attack, right great toe Prednisone started, tapered to 20 mg p.o. daily Continue to taper prednisone Improving CAD status post CABG No cardiac symptoms Continue usual cardiac medications CHF as per records (EF 60-64%, TTE 2016) No signs of fluid overload Continue current medications PVD status post surgery history recurrent CVA Continue Plavix hx ICH as per records COPD, past tobacco abuse Not in exacerbation Transient hypoxemia at the ER, O2 sats more than 90% CRI, creatinine baseline history of solitary kidney Hyperglycemia rule out DM A1c 6.1 Monitor as an outpatient Generalized weakness; multifactorial PT OT eval DVT prophylaxis. Heparin subcu Full code Disposition Pending Case management on board: Checking with patient can be covered by insurance for home IV antibiotics or if he needs to go to [facility] daily to complete IV antibiotics Last day of ertapenem should be on Monday, September 03, 2018 Subjective Follow-up for UTI, acute gout Resting bedside chair, comfortable In good spirits States he feels fine overall No abdominal pain, dysuria Right foot pain continues to improve No other symptoms Physical Exam Vital Signs (Past 24 Hours): Last Vital Signs Temp 36.7 C 08/29/18 07:00 Pulse 58 L 08/29/18 07:00 Resp 20 08/29/18 07:00 BP 156/78 H 08/29/18 07:00 Pulse Ox 93 08/29/18 07:00 Physical Exam: General- oriented x 3, not in distress, speaks in sentences with no effort or accessory muscle use Eyes- anicteric Neck- no JVD Lungs- clear BS BL No wheezing, no crackles Heart- normal rate, regular rhythm; no murmurs Abdomen- normal bowel sounds, nondistended, soft, nontender Extremities- no pretibial edema, no calf tenderness Right foot: Big toe MTP joint edema resolved, mild erythema, no tenderness, Dorsum of the right foot essentially normal Neuro- alert, oriented x 3; no gross focal neurologic deficits Skin- warm & dry Results & Data Laboratory Results Laboratory Results - last 24 hr 08/29/18 08/29/18 07:31 07:31 WBC 12.03 H RBC 4.83 Hgb 15.5 Hct 45.8 MCV 94.8 MCH 32.1 MCHC 33.8 RDW Std Deviation 46.6 H RDW Coeff of Ketan 13.5 Plt Count 235 MPV 9.2 Creatinine 1.43 H Est Cr Clr Drug Dosing 51.2 Est GFR ( Amer) 57.1 Est GFR (Non-Af Amer) 49.3 (1) UTI (urinary tract infection) Hematuria presence: without hematuria Urinary tract infection type: acute cystitis Qualified Code(s): N30.00 - Acute cystitis without hematuria
[2018-08-29] MEDS: AMLODIPINE BESYLATE 5 MG TAB PO SCH (12:10)
[2018-08-29] MEDS: TRAZODONE HCL 50 MG TAB PO SCH (20:07)
[2018-08-29] MEDS: CLOPIDOGREL BISULFATE 75 MG TAB PO SCH (20:08)
[2018-08-30] MEDS: METOPROLOL TARTRATE 50 MG TAB PO SCH (05:32)
[2018-08-30] MEDS: HEPARIN SOD 5,000 UNIT/0.5 ML VIAL SQ SCH (05:32)
[2018-08-30 07:24] LABS: Creatinine Clr Calc Pharmacy 43.8 ml/min; Est GFR (African American) 47.3; Est GFR (Non-African American) 40.8
[2018-08-30] MEDS: HydrALAZINE 10 MG TAB PO SCH (07:49)
[2018-08-30] MEDS: MULTIVITAMIN TAB PO SCH (07:49)
[2018-08-30] MEDS: ALLOPURINOL 100 MG TAB PO SCH (07:50)
[2018-08-30] MEDS: AMLODIPINE BESYLATE 5 MG TAB PO SCH (07:50)
[2018-08-30] MEDS: FAMOTIDINE 20 MG TAB PO SCH (07:51)
[2018-08-30] MEDS: PRAVASTATIN SOD 40 MG TAB PO SCH (07:51)
[2018-08-30] MEDS: ERTAPENEM SODIUM 1,000 MG in SODIUM CHLORIDE 0.9% 50 ML IV SCH (08:51)
[2018-08-30] MEDS ORDERED: predniSONE 20 MG TAB PO SCH (09:00)
[2018-08-30] MEDS ORDERED: LOPERAMIDE HCL 2 MG CAP PO PRN (09:57)
--- NOTE | 2018-08-30 12:20 | Hospitalist Progress Note ---
Date of Service August 30, 2018 Assessment & Plan (1) UTI (urinary tract infection): Complicated UTI--secondary to ESBL Recurrent symptoms History BPH status post surgery Urine cultures -growing ESBL E. coli Improving overall Ceftriaxone IV changed to ertapenem IV day #2/ ID consulted, recommend 7 days of ertapenem Case management on board: Checking with patient can be covered by insurance for home IV antibiotics or if he needs to go to [facility] daily to complete IV antibiotics Ertapenem prescription has been provided to social service Patient was discharged home today Ertapenem for the next 4 days either at home with home health nurse or at [facility] Diarrhea Likely secondary to antibiotic As to rule out C. difficile colitis before discharge If C. difficile is negative,can have Imodium Hypertensive urgency likely Secondary to discomfort not At goal Amlodipine increased from 5 to 10 mg p.o. daily Monitor blood pressure-controlled now Possible acute gout attack, right great toe Prednisone started, tapered to 20 mg p.o. daily Continue to taper prednisone No acute joint pain CAD status post CABG No cardiac symptoms Continue usual cardiac medications CHF as per records (EF 60-64%, TTE 2016) No signs of fluid overload Continue current medications PVD status post surgery history recurrent CVA Continue Plavix hx ICH as per records COPD, past tobacco abuse Not in exacerbation Transient hypoxemia at the ER, O2 sats more than 90% CRI, creatinine baseline history of solitary kidney Hyperglycemia rule out DM A1c 6.1 Monitor as an outpatient Generalized weakness; multifactorial PT OT eval DVT prophylaxis. Heparin subcu Full code Disposition Pending Case management on board: Checking with patient can be covered by insurance for home IV antibiotics or if he needs to go to [facility] daily to complete IV antibiotics Last day of ertapenem should be on Monday, September 03, 2018 Discharge home this afternoon. Subjective Follow-up for UTI, acute gout 08/30 Patient was seen and examined in medical floor He has been complaining of diarrhea without any abdominal pain, nausea and/or vomiting He has been feeling otherwise good and wants to go home Physical Exam Vital Signs (Past 24 Hours): Last Vital Signs Temp 36.3 C L 08/30/18 11:33 Pulse 104 H 08/30/18 11:33 Resp 16 08/30/18 11:33 BP 191/99 H 08/30/18 11:33 Pulse Ox 95 08/30/18 11:33 Physical Exam: No apparent distress at rest Constitutional: WD/WN, vitals as above Eyes: PERRL, conjunctivae normal, anicteric sclerae ENMT: external ear and nose normal, oropharynx normal Neck: trachea midline, no thyromegaly Respiratory: normal respiratory effort Auscultation: lungs clear to auscultation bilaterally Cardiovascular: Rate/Rhythm: regular rate and regular rhythm Heart Sounds: normal S1 and normal S2 Gastrointestinal (Abdomen): Inspection/Auscultation: abdomen normal to inspection and normal bowel sounds Percussion/Palpation: + abdomen tender (Minimally tender hypogastrium and renal angles) Musculoskeletal: No acute arthritis Neurologic: Alert, awake and oriented x3. No focal neuro deficit Results & Data Laboratory Results [facility] 08/30/18 06:24 Creatinine 1.67 H Medications Administered Current Inpatient Medications Acetaminophen (Tylenol) 650 mg PO Q4H PRN PRN Reason: Pain or Fever Stop: 09/25/18 05:25 Allopurinol (Zyloprim) 100 mg PO DAILY [facility] Stop: 09/25/18 08:59 Last Admin: 08/30/18 07:50 Dose: 100 mg Documented by: Amlodipine Besylate (Norvasc) 10 mg PO QAM [facility] Stop: 09/28/18 09:29 Last Admin: 08/30/18 07:50 Dose: 10 mg Documented by: Clopidogrel Bisulfate (Plavix) 75 mg PO QPM [facility] Stop: 09/25/18 20:59 Last Admin: 08/29/18 20:08 Dose: 75 mg Documented by: Ertapenem (Consult) 1 ea N/A UD PRN PRN Reason: Consult Stop: 09/27/18 08:46 Famotidine (Pepcid) 20 mg PO BID [facility] Stop: 09/25/18 08:59 Last Admin: 08/30/18 07:51 Dose: 20 mg Documented by: Heparin Sodium (Porcine) (Heparin Sodium (Porcine)) 5,000 units SQ Q8 [facility] Stop: 09/25/18 07:59 Last Admin: 08/30/18 05:32 Dose: 5,000 units Documented by: Hydralazine HCl (Apresoline) 25 mg PO TID [facility] Stop: 09/28/18 19:44 Last Admin: 08/30/18 07:49 Dose: 25 mg Documented by: Hydromorphone HCl (Dilaudid) 0.5 mg IV Q3H PRN PRN Reason: Pain Stop: 09/09/18 05:25 Prochlorperazine 5 mg/ Syringe 5 mls @ 5 mls/min IV Q6H PRN PRN Reason: Nausea And Vomiting Stop: 09/25/18 05:25 Ertapenem 1,000 mg/ Sodium (Chloride) 60 mls @ 100 mls/hr IV Q24H [facility]; Protocol Stop: 09/07/18 08:59 Last Infusion: 08/30/18 09:41 Dose: Infused Documented by: Loperamide HCl (Imodium) 2 mg PO UD PRN PRN Reason: Diarrhea Stop: 09/29/18 09:56 Last Admin: 08/30/18 11:45 Dose: 2 mg Documented by: Metoprolol Tartrate (Lopressor) 50 mg PO Q8 [facility] Stop: 09/25/18 06:25 Last Admin: 08/30/18 05:32 Dose: 50 mg Documented by: Miscellaneous (Order Awaiting Action) 1 ea N/A QS [facility] Stop: 09/25/18 07:59 Last Admin: 08/30/18 07:39 Dose: Not Given Documented by: Multivitamins (Multivitamin Tab) 1 tab PO DAILY [facility] Stop: 09/25/18 08:59 Last Admin: 08/30/18 07:49 Dose: 1 tab Documented by: Nitroglycerin (Nitrostat) 0.4 mg SL UD PRN PRN Reason: Chest Pain Stop: 09/25/18 05:25 Oxybutynin Chloride (Ditropan) 5 mg PO TID PRN PRN Reason: Bladder Spasms Stop: 09/25/18 06:25 Pravastatin Sodium (Pravachol) 40 mg PO DAILY [facility] Stop: 09/25/18 08:59 Last Admin: 08/30/18 07:51 Dose: 40 mg Documented by: Prednisone (Prednisone) 20 mg PO DAILY [facility] Stop: 09/29/18 08:59 Last Admin: 08/30/18 07:51 Dose: 20 mg Documented by: Sennosides (Senokot) 8.6 mg PO BID PRN PRN Reason: Constipation Stop: 09/25/18 06:25 Last Admin: 08/28/18 00:01 Dose: 8.6 mg Documented by: Tramadol HCl (Ultram) 25 - 50 mg PO Q4H PRN PRN Reason: Pain Stop: 09/25/18 05:25 Trazodone HCl (Desyrel) 50 mg PO HS [facility] Stop: 09/25/18 20:59 Last Admin: 08/29/18 20:07 Dose: 50 mg Documented by: (1) UTI (urinary tract infection) Hematuria presence: without hematuria Urinary tract infection type: acute cystitis Qualified Code(s): N30.00 - Acute cystitis without hematuria
--- NOTE | 2018-08-31 07:45 | Discharge Summary ---
Date of Service August 31, 2018 Admission HPI Per Admitting Provider History obtained from patient and records. Medical history significant for CAD status post CABG, CHF as per records (EF 60- 64%, TTE 2016), PVD status post surgery, hypertension, history recurrent CVA, hx ICH, COPD, past tobacco abuse, gout, CRI baseline creatinine 1.5-1.6, history of solitary kidney. Recent confinement last month for sepsis secondary to E. coli UTI. Yesterday patient noted generalized weakness, achy bladder discomfort, falling down as per patient. No chest pain, no S OB. Right foot swollen as per . No fever, no chills. At the ER, patient received IV Ceftriaxone for UTI. Medical History as above Surgical History : CABG, carotid artery surgery, tracheostomy, nephrectomy, TURP, Family History : Diabetes Personal/Social history : Past tobacco abuse, no EtOH intake, prior [employer], lives with Admission Exam Per Admitting Provider Vital Signs (Past 24 Hours): Last Vital Signs Temp 37.5 C 08/26/18 00:08 Pulse 81 08/26/18 05:00 Resp 20 08/26/18 05:00 BP 180/87 H 08/26/18 05:00 Pulse Ox 90 08/26/18 05:00 Physical Exam: GENERAL: Comfortable, obese, no respiratory distress SKIN: Normal color, warm HEENT: [place] palpebral conjunctivae, no ptosis, dry buccal mucosa NECK : Supple, short, no tenderness CHEST : Decreased breath sounds , no tenderness HEART : RRR, no obvious murmurs ABDOMEN: Some distention, nontender EXTREMITIES : Tender right great toe swelling , no other conspicuous deformities noted NEUROLOGIC : Coherent, no facial asymmetry, mild left hemiparesis (chronic), gait and stance not assessed Principal Diagnosis ESBL UTI Discharge Exam Constitutional WD/WN, vitals as above Eyes PERRL, conjunctivae normal, anicteric sclerae ENMT external ear and nose normal, oropharynx normal Neck trachea midline, no thyromegaly Respiratory normal respiratory effort Auscultation: lungs clear to auscultation bilaterally Cardiovascular Rate/Rhythm: regular rate and regular rhythm Heart Sounds: normal S1 and normal S2 Gastrointestinal (Abdomen) Inspection/Auscultation: abdomen normal to inspection and normal bowel sounds Percussion/Palpation: + abdomen tender (Minimally tender hypogastrium and renal angles) Discharge Data Allergies Allergy/AdvReac Type Severity Reaction Status Date / Time aspirin AdvReac Intermediate RELAXES Verified 08/26/18 01:07 RECTUM atorvastatin AdvReac Intermediate RELAXED Verified 08/26/18 01:07 RECTAL SPHINCTER Consultations 08/26/18 05:30 ED Decision to Admit Stat 08/28/18 08:28 Consult Infectious Diseases Routine Ordered Studies 08/26/18 00:12 CT head/brain wo con Urgent Hospital Course (1) UTI (urinary tract infection): Complicated UTI--secondary to ESBL Recurrent symptoms History BPH status post surgery Urine cultures -growing ESBL E. coli Improving overall Ceftriaxone IV changed to ertapenem IV day #2 ID consulted, recommend 7 days of ertapenem Case management on board: Checking with patient can be covered by insurance for home IV antibiotics or if he needs to go to [facility] daily to complete IV antibiotics Ertapenem prescription has been provided to social service Patient was discharged home today Ertapenem for the next 4 days either at home with home health nurse or at [facility] Diarrhea Likely secondary to antibiotic As to rule out C. difficile colitis before discharge If C. difficile is negative,can have Imodium Hypertensive urgency likely Secondary to discomfort not At goal Amlodipine increased from 5 to 10 mg p.o. daily Monitor blood pressure-controlled now Possible acute gout attack, right great toe Prednisone started, tapered to 20 mg p.o. daily Continue to taper prednisone No acute joint pain CAD status post CABG No cardiac symptoms Continue usual cardiac medications CHF as per records (EF 60-64%, TTE 2016) No signs of fluid overload Continue current medications PVD status post surgery history recurrent CVA Continue Plavix hx ICH as per records COPD, past tobacco abuse Not in exacerbation Transient hypoxemia at the ER, O2 sats more than 90% CRI, creatinine baseline history of solitary kidney Hyperglycemia rule out DM A1c 6.1 Monitor as an outpatient Generalized weakness; multifactorial PT OT eval DVT prophylaxis. Heparin subcu Full code Disposition Pending Case management on board: Checking with patient can be covered by insurance for home IV antibiotics or if he needs to go to [facility] daily to complete IV antibiotics Last day of ertapenem should be on Monday, September 03, 2018 Discharge home this afternoon. Total Time Total Time Spent Total Time Spent (In Minutes): 35 minutes Total Time Includes: Examination of the Patient, Discharge Planning, Medication Reconciliation and Communication With Other Providers Discharge Plan Discharge Items Patient Disposition: Home - Home Health Services Reason For Visit: HTN URGENCY, COMPLICATED UTI Discharge Diagnosis: ESBL UTI Condition: Good Discharge Goals: Decrease discomfort, Improve function and Increase independence Activity: Resume your previous activity Non-emergency contact: Primary Care Provider Call non-emergency contact if: you have any medication questions and your symptoms worsen Follow-up/Referrals: Luis Armando Syed DO [Primary Care Provider] - 09/02/18 2:05 pm (Your appointment is with alexis Grubbs. Dr. Syed has no opening.) Diet: Heart Healthy Addtl Provider Instructions: Please take precaution to avoid fall. Can have Imodium to control diarrhea as directed Prescriptions: New prednisone 10 mg tablet 10 mg PO UD Qty: 8 RF: 0 ertapenem 1 gram recon soln 1 gm IV DAILY Qty: 4 RF: 0 Lactinex 1 million cell tablet,chewable 1 tab PO BID Qty: 14 RF: 0 Continued hydralazine 10 mg tablet 10 mg PO TID RF: 0 trazodone 50 mg tablet 50 mg PO HS RF: 0 pravastatin 40 mg tablet 40 mg PO DAILY RF: 0 clopidogrel 75 mg tablet 75 mg PO QPM RF: 0 allopurinol 100 mg tablet 100 mg PO DAILY RF: 0 famotidine 20 mg tablet 20 mg PO BID RF: 0 metoprolol tartrate 50 mg tablet 50 mg PO Q8 RF: 0 multivitamin Tablet,Chewable 1 tab PO DAILY RF: 0 Prevagen 1 cap PO DAILY RF: 0 sennosides [Vegetable Laxative] 8.6 mg Tablet 8.6 mg PO BID PRN (Reason: Constipation) RF: 0 acetaminophen [Tylenol Arthritis Pain] 650 mg Tablet Extended Release 1,300 mg PO Q12H PRN (Reason: Pain) RF: 0 oxybutynin chloride 5 mg Tablet 5 mg PO TID PRN (Reason: Bladder Spasms) RF: 0 dutasteride 0.5 mg Capsule 0.5 mg PO DAILY RF: 0 biotin 2,500 mcg Capsule 2,500 mcg PO DAILY RF: 0 Vicks Nyquil Nighttime Relief 6.25-15-325 mg/15 mL Liquid 0.5 dose PO HS RF: 0 Turmeric/Curcumim 500 mg PO DAILY RF: 0 Vitamin B Energy 1 tab PO DAILY RF: 0 Changed amlodipine 5 mg Tablet 10 mg PO QPM Qty: 0 RF: 0 Stand-Alone Forms: [facility]/Other Patient Handouts: Prediabetes, Diabetes Meal Planning Discharge Orders: Discharge Order (Routine); Ordered 08/30/18 Ordered By: Nirmal Coelho Admission Data Admit Date/Time: 08/26/18 05:25 Attending Provider: Nirmal Coelho Admit Provider: Kai Frias Primary Care Provider: Luis Armando Syed V. Other Providers: Kai Frias ; Felton Morrison ; Nirmal Coelho ; Trae Cobos ; Sruthi Benton Service: Telemetry Medical Other Interventions: Discharge Summary Assessment (RN) Last Done: 08/30/18 13:55 DC Date/Time DO NOT enter until pt leaves facility: 08/30/18 14:05
== END 2018-08-30 14:05 | disposition home health service (06) | DRG 690 ==
LOC: ED 00:04 → SUATTDRO 05:25 → 2N 05:25

== ENCOUNTER 2018-10-13 17:56 | Inpatient (IN) ==
--- OUTSIDE RECORDS SUMMARY | 2018-10-13 18:00 | External Medical Summary | Continuity of Care Document ---
:1950 Author Name Iban Monroe Address Unavailable Unavailable , Care Team Providers Name Role Phone Ranjith Monroe Unavailable [email or web address] Unavailable Unavailable Unavailable Unavailable Unavailable Problems Hypertension (401.9) (I10) Elevated PSA (790.93) (R97.20) PAD (peripheral artery disease) (443.9) (I73.9) Erectile dysfunction (607.84) (N52.9) Encounter for screening for malignant neoplasm of prostate ( V76.44) (Z12.5) Urinary symptom or sign (788.99) (R39.9) Urinary tract infection (599.0) (N39.0) Benign prostate hyperplasia (600.00) (N40.0) Allergies and Adverse Reactions Aspirin TABS (Allergy) Reaction: Other Lipitor TABS (Allergy) Reaction: Other Medications Allopurinol TABS Refills: 0 hydrALAZINE HCl TABS Refills: 0 Multivitamins CAPS Refills: 0 Pravastatin Sodium TABS Refills: 0 Turmeric Curcumin Oral Capsule Refills: 0 Cyanocobalamin TABS Refills: 0 Senokot TABS Refills: 0 Famotidine 10 MG Oral Tablet Refills: 0 Metoprolol Tartrate TABS Refills: 0 traZODone HCl TABS Refills: 0 Clopidogrel Bisulfate 75 MG Oral Tablet Refills: 0 Norvasc 5 MG Oral Tablet Refills: 0 Dutasteride 0.5 MG Oral Capsule; TAKE ONE CAPSULE BY M OUT ONCE DAILY. Fer Kasper Start: 16-Aug-2018 Quantity: 90 Refills: 3 Procedures Total PSA Date: 16-Aug-2018 History of Heart Surgery Status: Complet ed History of Kidney Surgery Status: Comple bonnie History of Nephrectomy Left Status: Comp leted History of CABG Status: Completed History of Neurological Surgery Carotid Status: Completed Endarterectomy History of Cardiac Cath In-Lab Complications: Status: Completed Immunizations Immunizations not documented Family History Sister Family history of diabetes mellitus (V18.0) (Z83.3) Status: Active Brother Family history of diabetes mellitus (V18.0) (Z83.3) Status: Active Social History - Smoking Status Former smoker Plan of Treatment Planned Encounters Appointment; Dick Kasper M.D. Start: 15-Feb-2019 9:30 R equest Planned Observations Planned Goals not documented Results No Known Results Results not documented Encounters Appointment; Dick Kasper M.D. 16-Aug-2018 9:10 Encounter Diagnosis: Problem not documented Appointment; Urology, Room 7 16-Aug-2018 9:00 Encounter Diagnosis: Problem not documented Appointment; Dick Kasper M.D. 26-Jul-2018 11:30 Encounter Diagnosis: Problem not documented Appointment; Dick Kasper M.D. 15-Feb-2019 9:30 Encounter Diagnosis: Problem not documented
[2018-10-13] MEDS ORDERED: ACETAMINOPHEN 1,000 MG/100 ML VIAL IV STA (18:28)
[2018-10-13] MEDS ORDERED: SODIUM CHLORIDE 0.9% 1000ML 1,000 ML IV SCH ×2 (18:30→22:35)
[2018-10-13 18:47] LABS: Basophils # (auto) 0.05 K/uL (0-0.2); Basophils % (auto) 0.3 %; Eosinophils # (auto) 0.05 K/uL (0-0.5); Eosinophils % (auto) 0.3 %; Hematocrit (blood only) 44.7 % (42-52); Hemoglobin 15.1 g/dL (14.0-18.0); Immature Granulocytes # (auto) 0.04 K/uL (0.00-0.02); Immature Granulocytes % (auto) 0.3 %; Lymphocytes # (auto) 0.95 K/uL (1.2-3.4); Lymphocytes % (auto) 6.1 %; Mean Corpuscular Hgb Conc 33.8 g/dL (32-36); Mean Corpuscular Volume 93.7 fL (80-100); Mean Platelet Volume 9.4 fL (7.4-10.4); Monocytes # (auto) 2.81 K/uL (0.11-0.59); Monocytes % (auto) 17.9 %; Neutrophils # (auto) 11.79 K/uL (1.4-6.5); Neutrophils % (auto) 75.1 %; Platelet Count 158 K/uL (130-400); RDW Coefficient of Variation 13.8 % (11.5-14.5); RDW Standard Deviation 47.2 fL (36.4-46.3); Red Blood Count 4.77 M/uL (4.7-6.1); White Blood Count 15.69 K/uL (4.8-10.8)
--- NOTE | 2018-10-13 18:52 | XRay Report ---
XR chest 1V portable CLINICAL HISTORY: Sepsis . COMPARISON STUDY: Chest radiograph August 26, 2018. FINDINGS: There are median sternotomy wires and clips from bypass grafting. Cardiomegaly is noted wit hout evidence for pulmonary edema. There is suspected emphysema. There is no pneumothorax. Apparent l eft basilar opacity is noted. In part, this represents prominent epicardial fat pad. A few nodular op acities project near the right lower lung measuring up to 1.5 mm. IMPRESSION: 1. Left basilar opacity, in part due to prominent epicardial fat pad. Superimposed consolidation bernard ot be excluded. 2. A few nodular densities within the right lower lung which measure up to 1.5 cm. A nonemergent ches t CT is recommended. 3. Suspected emphysema. Electronically signed by: Mario Baker M.D. 10/13/2018 6:51 PM
[2018-10-13 18:58] LABS: Partial Thromboplastin Time 26.4 Seconds (21.0-31.0); Prothrombin Time 9.9 Seconds (9.0-12.0)
[2018-10-13] MEDS ORDERED: VANCOMYCIN CONSULT ACTIVE PRN (18:59)
[2018-10-13] MEDS ORDERED: VANCOMYCIN HCL 1,000 MG in SODIUM CHLORIDE 0.9% 500 ML IV STA (18:59)
[2018-10-13] MEDS ORDERED: CEFEPIME 2,000 MG/20 ML VIAL IV STA (18:59)
[2018-10-13 19:07] LABS: Albumin Level 3.2 gm/dl (3.4-5.0); BUN Creatinine Ratio 13.3 (10-20); Calcium 9.5 mg/dl (8.5-10.1); Creatinine Clr Calc Pharmacy 50.3 ml/min; Est GFR (African American) 52.2; Potassium 4.6 mmol/L (3.5-5.1)
[2018-10-13 19:10] LABS: Albumin Globulin Ratio 0.8 (0.9-2); Bilirubin,Total 0.5 mg/dl (0.2-1); Globulin 3.9 gm/dl (2.5-4.0); Total Protein 7.1 gm/dl (6.4-8.2)
[2018-10-13] MEDS ORDERED: LEVOFLOXACIN/D5W 750 MG/150 ML BAG IV STA (19:26)
[2018-10-13 19:27] LABS: Appearance Urine Cloudy (Clear); Bacteria Urine Automated 2+ (Negative); Bilirubin Urine Negative (Negative); Blood Urine 3+ (Negative); Color Urine Yellow; Epithelial Cell Urine Auto 0-5 /lpf (0-5); Glucose Urine UA Negative (Negative); Ketones Urine Negative (Negative); Leukocyte Esterase Urine 3+ (Negative); Nitrite Urine Positive (Negative); Protein Urine 2+ (Negative); RBC Urine Automated >30 /hpf (0-4); Specific Gravity Urine 1.017 (1.000-1.030); Urobilinogen Urine Negative (Negative); WBC Urine Automated >30 /hpf (0-5)
--- NOTE | 2018-10-13 19:35 | CT Scan Report ---
ABDOMEN AND PELVIS CT WITHOUT CONTRAST CT DOSE: 1134.28 mGycm HISTORY: dysuria hematuria sepsis ro code infected stone TECHNIQUE: Multiaxial CT images of the abdomen and pelvis were performed without contrast. A dose lo wering technique was utilized adhering to the principles of ALARA. COMPARISON STUDY: Abdomen and pelvis CT 01/20/2010. FINDINGS: Left basilar linear densities favor subsegmental atelectasis. No pneumoperitoneum. No pneum atosis. Poststernotomy changes. Hepatic steatosis. A few small gallstones. The unenhanced spleen and adrenal glands are unremarkable. There are few punctate calcifications within the pancreas, unchanged . This is consistent with chronic pancreatitis. No evidence for acute pancreatitis at this time. The left kidney is absent. An aortobiiliac graft is noted. Tiny fat-containing ventral hernias, unchanged . No retroperitoneal lymphadenopathy. The prostate gland is mildly enlarged. The bladder is decompres sed by Davidson catheter. Small amount of gas within the bladder lumen is likely due to the catheterizat ion. There is mild bladder wall thickening with mild adjacent fat stranding. Mild urothelial thickeni ng within the right renal pelvis and right ureter with progressive right perinephric fat stranding/ed kyra. Mild fullness within the right renal collecting system without ginger hydronephrosis. No renal or ureteral calculi. Suboptimal evaluation for bowel pathology due to the lack of intravenous and oral contrast. However, there is no definite bowel wall thickening or obstruction. The appendix is not christian ntified and reportedly surgically absent. A few colonic diverticula. No evidence for diverticulitis. IMPRESSION: 1. No renal or ureteral stones. Mild fullness within the right renal collecting system without ginger hydronephrosis. 2. Progressive right perinephric edema/fat stranding as well as urothelial thickening within the righ t renal pelvis and right ureter. This favors a pyelitis/pyelonephritis. 3. There is also mild thickening and fat stranding within the bladder wall likely representing a cyst itis. Recommend correlation with urinalysis. Electronically signed by: Terrence Ellison M.D. 10/13/2018 7:34 PM
--- NOTE | 2018-10-13 21:06 | History & Physical Report ---
Date of Service October 13, 2018 Assessment & Plan (1) Sepsis: (2) Pyelonephritis: Patient presented with dysuria starting yesterday, fever and weakness today. H/O Hospitalization 08/2018 ESBL + E. coli UTI. Was initially treated with ceftriaxone and transitioned to ertapenem x7 days. In ER T: 39.2, BP: 105, RR: 20, BP: 141/79, 88% on room air up to 96% on 2 L NC. WBC: 15.6. POC Lactic acid: 1.3, Cr: 1.5 (baseline~1.4-1.6). UA: 2+ protein, 3+ blood, + nitrite, 3+ leukocyte esterase, > 30 WBC and RBC, 2+ bacteria CT abdomen/pelvis: 1. No renal or ureteral stones. Mild fullness within the right renal collecting system without ginger hydronephrosis. 2. Progressive right perinephric edema/fat stranding as well as urothelial thickening within the right renal pelvis and right ureter. This favors a pyelitis/pyelonephritis. 3. There is also mild thickening and fat stranding within the bladder wall likely representing a cystitis. Recommend correlation with urinalysis. -In ER was given Tylenol IV, cefepime, Levaquin, vancomycin, 1L NSS -Meets sepsis criteria: T: 39.2, P: 105, WBC: 15 -Pyelonephritis, possible pneumonia -Pending urine culture, blood culture -Pending lactic acid -IVF -Imipenem, doxycycline -pending CT chest -ID consult -Urology consult -CBC, BMP in am (3) Pneumonia: Possible pneumonia CXR: Left basilar opacity, in part due to prominent epicardial fat pad. Superimposed consolidation cannot be excluded. -antibiotics as above -pending CT Chest -supplemental oxygen as needed (4) Urinary retention: S/P TURP. Chronic urinary frequency -Davidson cath was placed in ER -Urology consult (5) Coronary artery disease: S/P CABG No CP, SOB -Continue plavix, metoprolol, amlodipine, statin (6) Chronic systolic CHF (congestive heart failure): Hx ischemic heart disease. Echo in 2016: EF: 60% Currently mildly dry -monitor volume status (7) Solitary kidney: S/P atrophic L kidney removed secondary to HTN -monitor renal functions -avoid nephrotoxic agents when possible (8) CKD (chronic kidney disease), stage III: Cr: 1.5. Baseline: 1.4-1.6 -monitor renal functions -avoid nephrotoxic agents when possible (9) Cerebrovascular disease: H/O Multiple ischemic strokes. H/O parenchymal hemorrhage perioperatively during carotid surgery. Has residual aphasia At baseline -continue plavix, pravastatin, BP meds (10) Hypertension: Stable. BP: 141/79, 155/83 -Continue metoprolol, amlodipine, hydralazine with holding parameters (11) COPD (chronic obstructive pulmonary disease): No reported cough or SOB -incentive spirometry (12) Gout: -Continue allopurinol DVT Prophylaxis -SCDs Full Code as per discussion with pt and pt's Follows with Dr Syed for routine care Pt was seen with Dr Martinez. See addendum History of Present Illness Chief Complaint: Fever, dysuria Primary Care Provider: Luis Armando Syed, Pt is 68 y/o M with PMH of ischemic heart disease, systolic CHF, CVA, solitary kidney, CKD III, HTN, dyslipidemia, COPD, urinary retention, gout presented to ER with complaint of dysuria and fever. Patient states yesterday started with dysuria. Reports chronic urinary frequency. Today having weakness and fever > 100 F. States has been eating and drinking well. Denies diaphoresis, N/V/D/C, VILLARREAL, dizziness, syncope, vision changes, neck pain, CP, SOB, orthopnea, palpitations, cough, sore throat, choking, otalgia, rhinorrhea, abdominal pain, back pain, flank pain paresthesias, increased extremity edema, rashes, hematuria. Patient with history hospitalization at [facility] 07/13/2018-07/16/2018 for sepsis, E. coli UTI. Hospitalization 08/26/2018-08/30/2018 ESBL + E. coli UTI. Blood cultures with no growth. Was initially treated with ceftriaxone and transitioned to ertapenem x7 days. Allergies Allergy/AdvReac Type Severity Reaction Status Date / Time aspirin AdvReac Intermediate RELAXES Verified 10/13/18 20:44 RECTUM atorvastatin AdvReac Intermediate RELAXED Verified 10/13/18 20:44 RECTAL SPHINCTER Home Medications Home Medications Medication Instructions Recorded Confirmed Type allopurinol 100 mg PO DAILY 07/13/18 10/13/18 History clopidogrel 75 mg PO QPM 07/13/18 10/13/18 History famotidine 20 mg PO BID 07/13/18 10/13/18 History hydralazine 10 mg PO TID 07/13/18 10/13/18 History metoprolol tartrate 50 mg PO Q8 07/13/18 10/13/18 History multivitamin 1 tab PO DAILY 07/13/18 10/13/18 History pravastatin 40 mg PO DAILY 07/13/18 10/13/18 History trazodone 50 mg PO HS 07/13/18 10/13/18 History acetaminophen [Tylenol Arthritis 1,300 mg PO Q12H PRN 08/26/18 10/13/18 History Pain] oxybutynin chloride 5 mg PO TID PRN 08/26/18 10/13/18 History sennosides [Vegetable Laxative] 8.6 mg PO BID PRN 08/26/18 10/13/18 History Lactobacillus acidoph-L.bulgar 1 tab PO BID #14 tab 08/30/18 10/13/18 Rx [Lactinex] amlodipine [Norvasc] 10 mg PO DAILY 10/13/18 10/13/18 History cyanocobalamin (vitamin B-12) 100 mcg PO DAILY 10/13/18 10/13/18 History diclofenac sodium [Voltaren] 2 g TOPICAL BID PRN 10/13/18 10/13/18 History Past Med/Surg History Medical History Gout (Chronic) Urinary retention (Chronic) Pulmonary nodule (Chronic) CXR [facility] 07/03/18: 1.3 cm right midlung nodule, slightly enlarged compared to 04/18/15. F/U with CT recommended. Hypertension (Chronic) COPD (chronic obstructive pulmonary disease) (Chronic) History of intracranial hemorrhage (Chronic) parenchymal hemorrhage perioperatively during / after carotid surgery CKD (chronic kidney disease), stage III (Chronic) Solitary kidney (Chronic) atrophic left kidney, nephrectomy performed for hypertension Dyslipidemia (Chronic) Chronic systolic CHF (congestive heart failure) (Chronic) Coronary artery disease (Chronic) s/p CABG Cerebrovascular disease (Chronic) s/p multiple ischemic strokes Stroke (Resolved) Peripheral vascular disease (Chronic) Surgical History Status post abdominal aortic aneurysm (AAA) repair (Chronic) Status post carotid endarterectomy (Chronic) Status post coronary artery bypass graft (Chronic) Status post nephrectomy (Chronic) left atrophic, nonfunctional associated with hypertension Status post transurethral resection of prostate (Chronic) Family History Sister Diabetes Social History Preferred Language: Azeri Communication Ability: Effective Beliefs That Will Affect Care: None Current Living Situation: Spouse Other Information That Helps Us Care for You: No Feels Safe at Home: Yes Safety Concerns: Feels Safe At This Time Smoking Status: Former smoker Cigarettes Per Day: 40 Do You Dip or Chew Tobacco: No Second Hand Exposure: No Tobacco Cessation Education Requested by Patient: No Hx Substance Use: No Review of Systems Review of Systems: All systems reviewed & are unremarkable except as noted in HPI & below Physical Exam Physical Exam: General: chronic ill appearing, no acute distress at this time, obese Head: normocephalic, atraumatic Eyes: PERRL, EOM's intact, conjunctiva non-injected, anicteric ENT: normal inspection external ears, nose, mucous membranes mildly dry Neck: supple, trachea midline, non-tender Lungs: on 2L NC with sat 94%, no retractions, clear, no wheezing/rhonchi/rales CV: sinus tachy, rate 102, no murmur, trace pretibial edema Abd: normal BS, soft, non-tender Ext: no cyanosis, no calf tenderness Neuro: Alert, expressive aphasia (chronic), normal affect Skin: warm, dry Results & Data Vital Signs (Past 12 Hours) Vital Signs Temp Pulse Pulse Resp BP BP Pulse Ox 10/13/18 20:04 100 H 18 155/83 H 94 10/13/18 18:56 106 H 96 10/13/18 18:18 39.2 C H 105 H 20 141/79 H 88 L Laboratory Results Short CBC 10/13/18 Range/Units 18:30 WBC 15.69 H (4.8-10.8) K/uL Hgb 15.1 (14.0-18.0) g/dL Hct 44.7 (42-52) % Plt Count 158 (130-400) K/uL BMP 10/13/18 18:30 Sodium 137 Potassium 4.6 Chloride 104 Carbon Dioxide 29 BUN 21 H Creatinine 1.54 H Glucose 118 H Calcium 9.5 Liver Function 10/13/18 Range/Units 18:30 Total Bilirubin 0.5 (0.2-1) mg/dl AST 13 L (15-37) U/L ALT 25 (12-78) U/L Alkaline Phosphatase 96 (45-117) U/L Albumin 3.2 L (3.4-5.0) gm/dl Urine 10/13/18 Range/Units 19:00 Urine Color Yellow Urine Appearance Cloudy A (Clear) Urine pH 5.0 (4.5-7.5) Ur Specific [place] 1.017 (1.000-1.030) Urine Protein 2+ H (Negative) Urine Glucose (UA) Negative (Negative) Diagnostic Findings CT ABD/PELVIS: IMPRESSION: 1. No renal or ureteral stones. Mild fullness within the right renal collecting system without ginger hydronephrosis. 2. Progressive right perinephric edema/fat stranding as well as urothelial thickening within the right renal pelvis and right ureter. This favors a pyelitis/pyelonephritis. 3. There is also mild thickening and fat stranding within the bladder wall likely representing a cystitis. Recommend correlation with urinalysis. CXR: IMPRESSION: 1. Left basilar opacity, in part due to prominent epicardial fat pad. Superimposed consolidation cannot be excluded. 2. A few nodular densities within the right lower lung which measure up to 1.5 cm. A nonemergent chest CT is recommended. 3. Suspected emphysema. Supervising Physician Co-Signing Physician Notes Care coordinated with Ilda Craven PA-C. Agree with above note. Patient seen and examined. Please refer to her notes for full details. Vital signs reviewed. Physical exam: General exam: Alert and oriented. Not in acute distress. CVS: S1 and S2 heard, regular rate and rhythm, no murmurs. RS: Clear to auscultation, no wheezing or crackles. ABD: Soft, bowel sounds present, nontender, no distention. SCALE MECHANIC: Nonfocal. EXT: No edema, no erythema. Labs: Reviewed. Assessment and plan: 68M with hx of recurrent UTI , solitary kidney, copd, presents with dyuria, fever and found to have pyelitis/pyelonephritis and possible pneumonia. RT Pyelitis/pyelonephritis sepsis hx of pseudomonas in the past iv primaxin follow cx consult urology and ID lactic acid normalized on iv fluids close monitor Pneumonia? Ct chest shows right middle lobe collapsed left lower lobe pneumonitis abx as above consulted pulmonary Hx of CHF solitary kidney on fluids will monitor for volume overload. Other diagnosis and plan of care as per []. Federico enriquez MD. (1) Coronary artery disease Associated angina: without angina Coronary Disease-Associated Artery/Lesion type: [place] artery [place] vs. transplanted heart: creek heart Qualified Code(s): I25.10 - Atherosclerotic heart disease of creek coronary artery without angina pectoris (2) Sepsis Sepsis type: sepsis due to unspecified organism Qualified Code(s): A41.9 - Sepsis, unspecified organism (3) COPD (chronic obstructive pulmonary disease) COPD type: unspecified COPD Qualified Code(s): J44.9 - Chronic obstructive pulmonary disease, unspecified (4) Hypertension Hypertension type: unspecified Qualified Code(s): I10 - Essential (primary) hypertension (5) Pneumonia Laterality: left Lung location: lower lobe of lung Pneumonia type: due to unspecified organism Qualified Code(s): J18.1 - Lobar pneumonia, unspecified organism
[2018-10-13] MEDS ORDERED: NON-FORMULARY MEDICATION (Lactobacillus Acidoph-L.Bulgar [Lactinex] 1 TAB) PO SCH (22:35)
[2018-10-13] MEDS ORDERED: SENNA 8.6 MG TAB PO PRN (22:35)
[2018-10-13] MEDS ORDERED: DICLOFENAC SOD 1% GEL 100 GM TUBE EXT PRN (22:35)
[2018-10-13] MEDS ORDERED: ACETAMINOPHEN 325 MG TAB PO PRN (22:35)
--- NOTE | 2018-10-13 22:37 | CT Scan Report ---
CT chest wo con CT DOSE: 745.55 mGy.cm HISTORY: Sepsis. Abnormal chest x-ray. TECHNIQUE: Multiaxial CT images of the chest were performed without contrast. A dose lowering techni que was utilized adhering to the principles of ALARA. COMPARISON: Chest 10/13/2018. FINDINGS: Respiratory motion artifact. There is an abrupt cutoff within the proximal segmental bronch i of the right middle lobe with a hypoplastic versus collapsed right middle lobe. This is best seen o n image 179. The remaining central airways are patent. No pneumothorax. No pleural effusions. Emphyse ma. Mild interstitial thickening and small patchy densities within the left lower lobe posteriorly. T here are also similar-appearing linear densities within the upper lobes posteriorly. Therefore, this favors scarring or atelectasis. Focal scarlike calcification within the right lung apex. A 5 mm nodul e within the right lower lobe in image 141. Nodular densities described within the right lung base on the prior study represent sclerotic foci within the right anterior fifth rib with the largest measur ing 1.2 cm. Poststernotomy changes. Moderate calcified plaque within the normal caliber thoracic aort a. Normal esophagus. Cholelithiasis. Hepatic steatosis. The visualized spleen and adrenal glands are unremarkable. No mediastinal or hilar lymphadenopathy. The heart is normal in size. IMPRESSION: 1. Emphysema. 2. There is an abrupt cut off within the proximal segmental bronchi of the right middle lobe with a h ypoplastic versus collapsed right middle lobe. If the patient has not had prior surgery within the ri ght middle lobe, then consider follow-up bronchoscopy for further evaluation. 3. Nodular densities described within the right lung base on the prior study represent sclerotic foci within the right anterior fifth rib with the largest measuring 1.2 cm. These are indeterminate but c ould represent bone islands in the absence of a known malignancy. 4. Mild interstitial thickening and small patchy densities within the left lower lobe posteriorly. Th is favors atelectasis. A low-grade pneumonitis could also have a similar appearance. Electronically signed by: Terrence Ellison M.D. 10/13/2018 10:36 PM
[2018-10-13] MEDS ORDERED: IMIPENEM/CILASTATIN CONSULT ACTIVE PRN (22:41)
[2018-10-13] MEDS: TRAZODONE HCL 50 MG TAB PO SCH (23:41)
[2018-10-13] MEDS: HydrALAZINE 10 MG TAB PO SCH (23:42)
[2018-10-13] MEDS: CLOPIDOGREL BISULFATE 75 MG TAB PO SCH (23:42)
[2018-10-13] MEDS: FAMOTIDINE 20 MG TAB PO SCH (23:42)
[2018-10-13] MEDS: METOPROLOL TARTRATE 50 MG TAB PO SCH (23:42)
[2018-10-13] MEDS: DOXYCYCLINE HYCLATE 100 MG in DEXTROSE 5% 100 ML IV SCH (23:45)
[2018-10-14] MEDS: IMIPENEM/CILASTATIN SODIUM 300 MG in DEXTROSE 5% 100 ML IV SCH ×3 (01:21→11:17)
--- NOTE | 2018-10-14 01:23 | Emergency Department Note ---
Entered by Hal Lieberman acting as a scribe for Jomar Doe History of Present Illness General Chief complaint: Urinary Symptoms Stated complaint: UTI, FEVER, WEAKNESS Time Seen by Provider: 10/13/18 18:27 Source: patient History of Present Illness Provider complaint: Urinary symptoms Onset (ago): day(s) 2 Location: genitals Severity: similar to prior episodes Pain Consistency: + constant Maximum Pain Intensity: 4 Quality: + burning Relieved By: + none Exacerbated By: + none Associated symptoms: + fever/chills and + weakness; no chest pain and no shortness of breath The patient is a 68 year old male who presents to the Emergency Room with complaints of constant urinary symptoms that started about 2 days ago. The patient states he has burning with urination but there is no blood in his urine. Per the patient's family, he also has a fever and has been feeling weak. The patient currently denies any chest pain or shortness of breath. The patient does have a history of UTIs and is presenting similar symptoms as his previous. The patient also has a history of a lower aortic graft, carotid graft, 5 strokes, and a nephrectomy. Due to his history of strokes, the patient is on Plavix. Home Medications Home Medications Medication Instructions Recorded Confirmed Type allopurinol 100 mg PO DAILY 07/13/18 10/13/18 History clopidogrel 75 mg PO QPM 07/13/18 10/13/18 History famotidine 20 mg PO BID 07/13/18 10/13/18 History hydralazine 10 mg PO TID 07/13/18 10/13/18 History metoprolol tartrate 50 mg PO Q8 07/13/18 10/13/18 History multivitamin 1 tab PO DAILY 07/13/18 10/13/18 History pravastatin 40 mg PO DAILY 07/13/18 10/13/18 History trazodone 50 mg PO HS 07/13/18 10/13/18 History acetaminophen [Tylenol Arthritis 1,300 mg PO Q12H PRN 08/26/18 10/13/18 History Pain] oxybutynin chloride 5 mg PO TID PRN 08/26/18 10/13/18 History sennosides [Vegetable Laxative] 8.6 mg PO BID PRN 08/26/18 10/13/18 History Lactobacillus acidoph-L.bulgar 1 tab PO BID #14 tab 04/15/19 05/29/19 Rx [Lactinex] amlodipine [Norvasc] 10 mg PO DAILY 10/13/18 10/13/18 History cyanocobalamin (vitamin B-12) 100 mcg PO DAILY 10/13/18 10/13/18 History diclofenac sodium [Voltaren] 2 g TOPICAL BID PRN 10/13/18 10/13/18 History Allergies Allergy/AdvReac Type Severity Reaction Status Date / Time aspirin AdvReac Intermediate RELAXES Verified 10/13/18 20:44 RECTUM atorvastatin AdvReac Intermediate RELAXED Verified 10/13/18 20:44 RECTAL SPHINCTER Past Med/Surg History Medical History Gout (Chronic) Urinary retention (Chronic) Pulmonary nodule (Chronic) CXR [facility] 07/03/18: 1.3 cm right midlung nodule, slightly enlarged compared to 04/18/15. F/U with CT recommended. Hypertension (Chronic) COPD (chronic obstructive pulmonary disease) (Chronic) History of intracranial hemorrhage (Chronic) parenchymal hemorrhage perioperatively during / after carotid surgery CKD (chronic kidney disease), stage III (Chronic) Solitary kidney (Chronic) atrophic left kidney, nephrectomy performed for hypertension Dyslipidemia (Chronic) Chronic systolic CHF (congestive heart failure) (Chronic) Coronary artery disease (Chronic) s/p CABG Cerebrovascular disease (Chronic) s/p multiple ischemic strokes Stroke (Resolved) Peripheral vascular disease (Chronic) Surgical History Status post abdominal aortic aneurysm (AAA) repair (Chronic) Status post carotid endarterectomy (Chronic) Status post coronary artery bypass graft (Chronic) Status post nephrectomy (Chronic) left atrophic, nonfunctional associated with hypertension Status post transurethral resection of prostate (Chronic) Family History Sister Diabetes Social History Preferred Language: [place] Communication Ability: Effective Beliefs That Will Affect Care: None Current Living Situation: Spouse Other Information That Helps Us Care for You: No Feels Safe at Home: Yes Safety Concerns: Feels Safe At This Time Smoking Status: Former smoker Cigarettes Per Day: 40 Do You Dip or Chew Tobacco: No Second Hand Exposure: No Tobacco Cessation Education Requested by Patient: No Hx Substance Use: No Review of Systems See HPI for pertinent positives & negatives. and A total of 10 systems reviewed and were otherwise negative Physical Exam Vital Signs Vital Signs - 24 hr 10/13/18 18:18 10/13/18 18:56 10/13/18 20:04 Temperature 39.2 C H Temperature Source Oral Sepsis Recent Fever Within 48 Hours Yes Sepsis New/Unexplained Change in Mental Status No Sepsis Action Taken by Nursing No Action Required Pulse Rate 105 H 106 H Pulse Rate [Finger] 100 H Respiratory Rate 20 18 Respiratory Effort / Characteristics Non-Labored Spontaneous Respiratory Depth Normal Blood Pressure 141/79 H Blood Pressure [Left Arm] 155/83 H Blood Pressure Mean 99 Blood Pressure Mean [Left Arm] 107 Pulse Oximetry 88 L 96 94 Oxygen Delivery Method Room Air Nasal Cannula Nasal Cannula Oxygen Flow Rate 2 2 GENERAL: He is oriented to person, place, and time. He appears well-developed and well-nourished. He does not appear distressed. HENT: Exam performed. - Head: Normocephalic and atraumatic. - Right Ear: External ear normal. No mastoid tenderness. - Left Ear: External ear normal. No mastoid tenderness. - Mouth/Throat: The oropharynx is clear and moist. No trismus in the jaw. No dental abscesses or uvula swelling. No oropharyngeal exudate or tonsillar abscesses. EYES: Conjunctivae and EOM are normal. Pupils are equal, round, and reactive to light. Right eye exhibits no discharge. Left eye exhibits no discharge. No scleral icterus. NECK: Normal range of motion. Neck supple. No JVD present. No spinous process tenderness present. No carotid bruit present. No rigidity. No tracheal deviation and normal range of motion present. No Brudzinski's sign and no Kernig's sign noted. CV: Tachycardic rate, regular rhythm, normal heart sounds and intact distal pulses. There is no peripheral edema. Palpable radial pulses bue. PULM/CHEST: Effort normal and diminished breath sounds bilaterally. - Chest Wall: He exhibits no tenderness. ABD: The abdomen is soft. Bowel sounds are normal. He has no distension. No mass is present. There is no tenderness. There is no rebound, no guarding, no Alicea's sign and no tenderness at McBurney's point. Rovsig negative. MUSC/SKEL: Normal range of motion. There is no peripheral edema, tenderness or deformity. LYMPH: No cervical adenopathy. NEURO: He is alert and oriented to person, place, and time. He has normal strength. No cranial nerve deficit or sensory deficit. Coordination and gait normal. GCS eye subscore is 4. GCS verbal subscore is 5. GCS motor subscore is 6. Cerebellar tests wnl. SKIN: Skin is warm and dry. He is not diaphoretic. PSYCH: He has a normal mood and affect. Behavior is normal. Judgment and thought content normal. Course 183: The patient was evaluated in room A09A, and a complete history and physical examination were performed. The patient was found to be tachycardic, hypoxic, and febrile on arrival, a code sepsis was called. Large-bore IV access was obtained and the patient was started immediately on a IV fluid bolus for fluid resuscitation. 1857: The patient's CXR showed a left basilar opacities which could be superimposed opacities or epicardial fat pad. Given the patient's fever, hypoxia, tachycardia and leukocytosis, it is thought to be more of an infiltrate. He will be treated for HCAP and started on empiric antibiotics. EMR was reviewed and the patient had a urinary culture from August 26 which showed E Coli ESBL that was resistant to Cefepime but sensitive to Fluoroquinolones. He will be started on IV Levaquin for possible UTI and HCAP. 194: I spoke to Ilda Sinclair PA-C under Dr. Meliton whitman about the patient's case and they will be accepting him for further evaluation. 2000: Vital signs are stable. Initial lactic acid level was 0.94 at 1841. After 1000 cc bolus his repeat lactic acid was 1.37. His blood pressure is stable. Antibiotics are running. We will hold off on any further aggressive fluid resuscitation. Consultations Consultation #1: I spoke to Ilda Sinclair PA-C under Dr. Meliton whitman about the patient's case and they will be accepting him for further evaluation. Time: 19:45 Administered Medications Clopidogrel Bisulfate (Plavix) 75 mg PO QPM NATALYA Stop: 11/12/18 22:34 Last Admin: 10/13/18 23:42 Dose: 75 mg Documented by: [id number] Famotidine (Pepcid) 20 mg PO BID NATALYA Stop: 11/12/18 22:34 Last Admin: 10/13/18 23:42 Dose: 20 mg Documented by: [id number] Hydralazine HCl (Apresoline) 10 mg PO TID NATALYA Stop: 11/12/18 22:34 Last Admin: 10/13/18 23:42 Dose: 10 mg Documented by: [id number] Doxycycline Hyclate 100 mg/ (Dextrose) 110 mls @ 50 mls/hr IV Q12H NATALYA Stop: 10/20/18 22:59 Last Admin: 10/13/18 23:45 Dose: 50 mls/hr Documented by: [id number] Sodium Chloride (Nss 1000ml) 1,000 mls @ 125 mls/hr IV .Q8H NATALYA Stop: 10/14/18 06:34 Last Admin: 10/13/18 23:35 Dose: 125 mls/hr Documented by: [id number] Metoprolol Tartrate (Lopressor) 50 mg PO Q8 NATALYA Stop: 11/12/18 22:34 Last Admin: 10/13/18 23:42 Dose: 50 mg Documented by: [id number] Trazodone HCl (Desyrel) 50 mg PO HS NATALYA Stop: 11/12/18 22:34 Last Admin: 10/13/18 23:41 Dose: 50 mg Documented by: [id number] Discontinued Medications Sodium Chloride (Nss 1000ml) 1,000 mls @ 999 mls/hr IV .Q1H1M NATALYA Stop: 10/13/18 19:30 Last Infusion: 10/13/18 20:11 Dose: 0 mls/hr Documented by: [id number] Admin: 10/13/18 19:00 Dose: 999 mls/hr Documented by: [id number] Acetaminophen (Ofirmev) 1,000 mg in 100 mls @ 400 mls/hr IV NOW STA Stop: 10/13/18 18:42 Last Infusion: 10/13/18 19:16 Dose: 0 mls/hr Documented by: [id number] Admin: 10/13/18 19:00 Dose: 400 mls/hr Documented by: [id number] Cefepime HCl (Maxipime) 2,000 mg in 20 mls @ 5 mls/min IV NOW STA; Protocol Stop: 10/13/18 19:02 Last Admin: 10/13/18 20:04 Dose: 5 mls/min Documented by: [id number] Vancomycin HCl 1,000 mg/ (Sodium Chloride) 520 mls @ 200 mls/hr IV NOW STA Stop: 10/13/18 21:34 Last Infusion: 10/13/18 23:49 Dose: 0 mls/hr Documented by: [id number] Admin: 10/13/18 20:03 Dose: 200 mls/hr Documented by: [id number] Levofloxacin/Dextrose (Levaquin/D5w) 750 mg in 150 mls @ 100 mls/hr IV NOW STA Stop: 10/13/18 20:55 Last Infusion: 10/13/18 21:42 Dose: 0 mls/hr Documented by: [id number] Admin: 10/13/18 20:03 Dose: 100 mls/hr Documented by: [id number] Medical Decision Making Medical Records Attestation: I reviewed the patient's medical records. Home Medications Current Medication List: was personally reviewed by me Laboratory Data Attestation: I reviewed the patient's lab results. Result diagrams: 10/13/18 18:30 10/13/18 18:30 Lab Results 10/13/18 10/13/18 10/13/18 Range/Units 18:30 18:30 18:30 WBC 15.69 H (4.8-10.8) K/uL RBC 4.77 (4.7-6.1) M/uL Hgb 15.1 (14.0-18.0) g/dL Hct 44.7 (42-52) % MCV 93.7 (80-100) fL MCH 31.7 (25-34) pg MCHC 33.8 (32-36) g/dL RDW Std Deviation 47.2 H (36.4-46.3) fL RDW Coeff of Ketan 13.8 (11.5-14.5) % Plt Count 158 (130-400) K/uL MPV 9.4 (7.4-10.4) fL Immature Gran % (Auto) 0.3 % Neut % (Auto) 75.1 % Lymph % (Auto) 6.1 % O'Brien % (Auto) 17.9 % Eos % (Auto) 0.3 % Baso % (Auto) 0.3 % Immature Gran # (Auto) 0.04 H (0.00-0.02) K/uL Neut # (Auto) 11.79 H (1.4-6.5) K/uL Lymph # (Auto) 0.95 L (1.2-3.4) K/uL O'Brien # (Auto) 2.81 H (0.11-0.59) K/uL Eos # (Auto) 0.05 (0-0.5) K/uL Baso # (Auto) 0.05 (0-0.2) K/uL PT 9.9 (9.0-12.0) Seconds INR 1.0 (0.9-1.1) APTT 26.4 (21.0-31.0) Seconds PTT Ratio 1.0 Sodium 137 (136-145) mmol/L Potassium 4.6 (3.5-5.1) mmol/L Chloride 104 (98-107) mmol/L Carbon Dioxide 29 (21-32) mmol/L Anion Gap 4.0 (3-11) BUN 21 H (7-18) mg/dl Creatinine 1.54 H (0.6-1.4) mg/dl Est Cr Clr Drug Dosing 50.3 ml/min Est GFR ( Amer) 52.2 Est GFR (Non-Af Amer) 45.0 BUN/Creatinine Ratio 13.3 (10-20) Glucose 118 H (70-99) mg/dl POC Lactic Acid Eleazar (0.90-1.70) mmol/L Calcium 9.5 (8.5-10.1) mg/dl Total Bilirubin 0.5 (0.2-1) mg/dl AST 13 L (15-37) U/L ALT 25 (12-78) U/L Alkaline Phosphatase 96 (45-117) U/L Total Protein 7.1 (6.4-8.2) gm/dl Albumin 3.2 L (3.4-5.0) gm/dl Globulin 3.9 (2.5-4.0) gm/dl Albumin/Globulin Ratio 0.8 L (0.9-2) Urine Color Urine Appearance (Clear) Urine pH (4.5-7.5) Ur Specific [place] (1.000-1.030) Urine Protein (Negative) Urine Glucose (UA) (Negative) Urine Ketones (Negative) Urine Blood (Negative) Urine Nitrite (Negative) Urine Bilirubin (Negative) Urine Urobilinogen (Negative) Ur Leukocyte Esterase (Negative) Urine WBC (Auto) (0-5) /hpf Urine RBC (Auto) (0-4) /hpf U Hyaline Cast (Auto) (0-5) /lpf U Epithel Cells (Auto) (0-5) /lpf Urine Bacteria (Auto) (Negative) 10/13/18 10/13/18 Range/Units 19:00 19:54 WBC (4.8-10.8) K/uL RBC (4.7-6.1) M/uL Hgb (14.0-18.0) g/dL Hct (42-52) % MCV (80-100) fL MCH (25-34) pg MCHC (32-36) g/dL RDW Std Deviation (36.4-46.3) fL RDW Coeff of Ketan (11.5-14.5) % Plt Count (130-400) K/uL MPV (7.4-10.4) fL Immature Gran % (Auto) % Neut % (Auto) % Lymph % (Auto) % O'Brien % (Auto) % Eos % (Auto) % Baso % (Auto) % Immature Gran # (Auto) (0.00-0.02) K/uL Neut # (Auto) (1.4-6.5) K/uL Lymph # (Auto) (1.2-3.4) K/uL O'Brien # (Auto) (0.11-0.59) K/uL Eos # (Auto) (0-0.5) K/uL Baso # (Auto) (0-0.2) K/uL PT (9.0-12.0) Seconds INR (0.9-1.1) APTT (21.0-31.0) Seconds PTT Ratio Sodium (136-145) mmol/L Potassium (3.5-5.1) mmol/L Chloride (98-107) mmol/L Carbon Dioxide (21-32) mmol/L Anion Gap (3-11) BUN (7-18) mg/dl Creatinine (0.6-1.4) mg/dl Est Cr Clr Drug Dosing ml/min Est GFR ( Amer) Est GFR (Non-Af Amer) BUN/Creatinine Ratio (10-20) Glucose (70-99) mg/dl POC Lactic Acid Eleazar 1.37 (0.90-1.70) mmol/L Calcium (8.5-10.1) mg/dl Total Bilirubin (0.2-1) mg/dl AST (15-37) U/L ALT (12-78) U/L Alkaline Phosphatase (45-117) U/L Total Protein (6.4-8.2) gm/dl Albumin (3.4-5.0) gm/dl Globulin (2.5-4.0) gm/dl Albumin/Globulin Ratio (0.9-2) Urine Color Yellow Urine Appearance Cloudy A (Clear) Urine pH 5.0 (4.5-7.5) Ur Specific [place] 1.017 (1.000-1.030) Urine Protein 2+ H (Negative) Urine Glucose (UA) Negative (Negative) Urine Ketones Negative (Negative) Urine Blood 3+ H (Negative) Urine Nitrite Positive A (Negative) Urine Bilirubin Negative (Negative) Urine Urobilinogen Negative (Negative) Ur Leukocyte Esterase 3+ H (Negative) Urine WBC (Auto) >30 H (0-5) /hpf Urine RBC (Auto) >30 H (0-4) /hpf U Hyaline Cast (Auto) 1-5 (0-5) /lpf U Epithel Cells (Auto) 0-5 (0-5) /lpf Urine Bacteria (Auto) 2+ H (Negative) Imaging Data Radiologist's Impression: Radiology results as stated below per my review and the radiologist's interpretation: XR chest 1V portable CLINICAL HISTORY: Sepsis . COMPARISON STUDY: Chest radiograph August 26, 2018. FINDINGS: There are median sternotomy wires and clips from bypass grafting. Cardiomegaly is noted without evidence for pulmonary edema. There is suspected emphysema. There is no pneumothorax. Apparent left basilar opacity is noted. In part, this represents prominent epicardial fat pad. A few nodular opacities project near the right lower lung measuring up to 1.5 mm. IMPRESSION: 1. Left basilar opacity, in part due to prominent epicardial fat pad. Superimposed consolidation cannot be excluded. 2. A few nodular densities within the right lower lung which measure up to 1.5 cm. A nonemergent chest CT is recommended. 3. Suspected emphysema. Electronically signed by: Mario Baker M.D. 10/13/2018 6:51 PM A[address]OMEN AND PELVIS CT WITHOUT CONTRAST CT DOSE: 1134.28 mGycm HISTORY: dysuria hematuria sepsis ro code infected stone TECHNIQUE: Multiaxial CT images of the abdomen and pelvis were performed without contrast. A dose lowering technique was utilized adhering to the principles of ALARA. COMPARISON STUDY: Abdomen and pelvis CT 01/20/2010. FINDINGS: Left basilar linear densities favor subsegmental atelectasis. No pneumoperitoneum. No pneumatosis. Poststernotomy changes. Hepatic steatosis. A few small gallstones. The unenhanced spleen and adrenal glands are unremarkable. There are few punctate calcifications within the pancreas, unchanged. This is consistent with chronic pancreatitis. No evidence for acute pancreatitis at this time. The left kidney is absent. An aortobiiliac graft is noted. Tiny fat- containing ventral hernias, unchanged. No retroperitoneal lymphadenopathy. The prostate gland is mildly enlarged. The bladder is decompressed by Davidson cat heter. Small amount of gas within the bladder lumen is likely due to the catheterization. There is mild bladder wall thickening with mild adjacent fat stranding. Mild urothelial thickening within the right renal pelvis and right ureter with progressive right perinephric fat stranding/edema. Mild fullness within the right renal collecting system without ginger hydronephrosis. No renal or ureteral calculi. Suboptimal evaluation for bowel pathology due to the lack of intravenous and oral contrast. However, there is no definite bowel wall thickening or obstruction. The appendix is not identified and reportedly surgically absent. A few colonic diverticula. No evidence for diverticulitis. IMPRESSION: 1. No renal or ureteral stones. Mild fullness within the right renal collecting system without ginger hydronephrosis. 2. Progressive right perinephric edema/fat stranding as well as urothelial th ickening within the right renal pelvis and right ureter. This favors a pyelitis/pyelonephritis. 3. There is also mild thickening and fat stranding within the bladder wall likely representing a cystitis. Recommend correlation with urinalysis. Electronically signed by: Terrence Ellison M.D. 10/13/2018 7:34 PM ECG Data Attestation: I personally reviewed and interpreted this ECG as follows: Indication: weakness Rate (beats per minute): 101 Rhythm: normal sinus Findings: + other (Normal intervals); no ST depression and no ST elevation Blood Pressure Blood Pressure Findings: Elevated blood pressure Blood Pressure Disposition: further management by hospitalist GOGO Narrative 183: The patient was evaluated in room A09A, and a complete history and physic al examination were performed. The patient was found to be tachycardic, hypoxic, and febrile on arrival, a code sepsis was called. Large-bore IV access was obtained and the patient was started immediately on a IV fluid bolus for fluid resuscitation. 1857: The patient's CXR showed a left basilar opacities which could be superimposed opacities or epicardial fat pad. Given the patient's fever, hyp oxia, tachycardia and leukocytosis, it is thought to be more of an infiltrate. He will be treated for HCAP and started on empiric antibiotics. EMR was reviewed and the patient had a urinary culture from August 26 which showed E Coli ESBL that was resistant to Cefepime but sensitive to Fluoroquinolones. He will be started on IV Levaquin for possible UTI and HCAP. 1944: I spoke to Ilda Sinclair PA-C under Dr. Meliton Sinclair hospitalist about the patient's case and they will be accepting him for further evaluation. 1999: Vital signs are stable. Initial lactic acid level was 0.94 at 1841. After 1000 cc bolus his repeat lactic acid was 1.37. His blood pressure is stable. Antibiotics are running. We will hold off on any further aggressive fluid resuscitation. Impression & Plan Sepsis, Pneumonia, Pyelonephritis Critical Care Time I have personally spent greater than 70 minutes of critical care time in the direct management of this patient. This includes bedside care, interpretation of diagnostic studies, and testing, discussion with consultants, patient, and f amily members, and other required patient management activities. This 70 minutes is in excess of all separately billable procedures. Critical Care Time: Yes Total Critical Care Time: 70 Discharge Plan Visit Data *Final* Discharge Date/Time: 10/13/18 21:44 Chief Complaint: Urinary Symptoms Stated Complaint: UTI, FEVER, WEAKNESS ED Provider: Jomar Doe Discharge Problem: Sepsis, Pneumonia, Pyelonephritis Patient Disposition: Admitted As Inpatient Discharge Instructions Interventions: ED Discharge Assessment Last Done: 10/13/18 21:44 Discharge Problem: Sepsis Qualifiers: Sepsis type: sepsis due to unspecified organism Qualified Code(s): A41.9 - Sepsis, unspecified organism Pneumonia Qualifiers: Pneumonia type: due to unspecified organism Laterality: left Lung location: lower lobe of lung Qualified Code(s): J18.1 - Lobar pneumonia, unspecified organism The scribe's documentation has been prepared under my direction and personally reviewed by me in its entirety. I confirm that the note above accurately reflects all work, treatment, procedures, and medical decision making performed by me.
[2018-10-14 04:32] LABS: Basophils # (auto) 0.03 K/uL (0-0.2); Basophils % (auto) 0.2 %; Hematocrit (blood only) 41.8 % (42-52); Hemoglobin 13.9 g/dL (14.0-18.0); Immature Granulocytes # (auto) 0.05 K/uL (0.00-0.02); Immature Granulocytes % (auto) 0.4 %; Lymphocytes % (auto) 10.7 %; Mean Corpuscular Hgb Conc 33.3 g/dL (32-36); Mean Corpuscular Volume 93.1 fL (80-100); Mean Platelet Volume 9.5 fL (7.4-10.4); Monocytes # (auto) 2.54 K/uL (0.11-0.59); Monocytes % (auto) 18.1 %; Neutrophils % (auto) 70.6 %; Platelet Count 141 K/uL (130-400); RDW Coefficient of Variation 13.7 % (11.5-14.5); Red Blood Count 4.49 M/uL (4.7-6.1); White Blood Count 14.02 K/uL (4.8-10.8)
[2018-10-14 04:54] LABS: BUN Creatinine Ratio 12.7 (10-20); Calcium 8.8 mg/dl (8.5-10.1); Creatinine Clr Calc Pharmacy 54.3 ml/min; Est GFR (African American) 56.6; Est GFR (Non-African American) 48.9; Potassium 4.3 mmol/L (3.5-5.1)
[2018-10-14] MEDS: METOPROLOL TARTRATE 50 MG TAB PO SCH ×3 (06:02→22:25)
[2018-10-14] MEDS: PRAVASTATIN SOD 40 MG TAB PO SCH (07:39)
[2018-10-14] MEDS: AMLODIPINE BESYLATE 5 MG TAB PO SCH (07:39)
[2018-10-14] MEDS: HydrALAZINE 10 MG TAB PO SCH ×3 (07:39→20:04)
[2018-10-14] MEDS: MULTIVITAMIN TAB PO SCH (07:40)
[2018-10-14] MEDS: CYANOCOBALAMIN (VITAMIN B-12) 100 MCG TABLET PO SCH (07:40)
[2018-10-14] MEDS: ALLOPURINOL 100 MG TAB PO SCH (07:40)
[2018-10-14] MEDS: FAMOTIDINE 20 MG TAB PO SCH ×2 (07:40→20:04)
--- NOTE | 2018-10-14 11:06 | Infectious Disease Consult ---
Date of Consultation October 14, 2018 Assessment & Plan (1) Pyelonephritis: Patient with acute urinary tract infection with pyelonephritis with gram- negative bacilli growing in culture. Given previous resistant isolates, imipenem appropriate pending further identification and sensitivity results. Will follow. (2) Gram negative sepsis: History of Present Illness Reason for Consultation: Sepsis Attending Physician: Haleigh Barajas MD History of Present Illness 68-year-old male with history of solitary kidney with stage III chronic kidney disease, COPD, hypertension, prior CVA, dyslipidemia, recurrent urinary tract infections, admitted earlier this year with sepsis with ESBL producing E. coli, treated successfully with ertapenem, who was admitted to the hospital with 1 to 2-day history of fever associated with urinary frequency and dysuria and right flank pain. He has been started empirically on IV imipenem. Cultures of urine growing gram-negative bacilli, blood cultures are pending. CT scan shows evidence of developing right pyelonephritis. Allergies Allergy/AdvReac Type Severity Reaction Status Date / Time aspirin AdvReac Intermediate RELAXES Verified 10/13/18 20:44 RECTUM atorvastatin AdvReac Intermediate RELAXED Verified 10/13/18 20:44 RECTAL SPHINCTER Home Medications Home Medications Medication Instructions Recorded Confirmed Type allopurinol 100 mg PO DAILY 07/13/18 10/13/18 History clopidogrel 75 mg PO QPM 07/13/18 10/13/18 History famotidine 20 mg PO BID 07/13/18 10/13/18 History hydralazine 10 mg PO TID 07/13/18 10/13/18 History metoprolol tartrate 50 mg PO Q8 07/13/18 10/13/18 History multivitamin 1 tab PO DAILY 07/13/18 10/13/18 History pravastatin 40 mg PO DAILY 07/13/18 10/13/18 History trazodone 50 mg PO HS 07/13/18 10/13/18 History acetaminophen [Tylenol Arthritis 1,300 mg PO Q12H PRN 08/26/18 10/13/18 History Pain] oxybutynin chloride 5 mg PO TID PRN 08/26/18 10/13/18 History sennosides [Vegetable Laxative] 8.6 mg PO BID PRN 08/26/18 10/13/18 History Lactobacillus acidoph-L.bulgar 1 tab PO BID #14 tab 08/30/18 10/13/18 Rx [Lactinex] amlodipine [Norvasc] 10 mg PO DAILY 10/13/18 10/13/18 History cyanocobalamin (vitamin B-12) 100 mcg PO DAILY 10/13/18 10/13/18 History diclofenac sodium [Voltaren] 2 g TOPICAL BID PRN 10/13/18 10/13/18 History Patient History Medical History Gout (Chronic) Urinary retention (Chronic) Pulmonary nodule (Chronic) CXR [facility] 07/03/18: 1.3 cm right midlung nodule, slightly enlarged compared to 04/18/15. F/U with CT recommended. Hypertension (Chronic) COPD (chronic obstructive pulmonary disease) (Chronic) History of intracranial hemorrhage (Chronic) parenchymal hemorrhage perioperatively during / after carotid surgery CKD (chronic kidney disease), stage III (Chronic) Solitary kidney (Chronic) atrophic left kidney, nephrectomy performed for hypertension Dyslipidemia (Chronic) Chronic systolic CHF (congestive heart failure) (Chronic) Coronary artery disease (Chronic) s/p CABG Cerebrovascular disease (Chronic) s/p multiple ischemic strokes Stroke (Resolved) Peripheral vascular disease (Chronic) Surgical History Status post abdominal aortic aneurysm (AAA) repair (Chronic) Status post carotid endarterectomy (Chronic) Status post coronary artery bypass graft (Chronic) Status post nephrectomy (Chronic) left atrophic, nonfunctional associated with hypertension Status post transurethral resection of prostate (Chronic) Family History Sister Diabetes Social History Preferred Language: Romansh Communication Ability: Effective Beliefs That Will Affect Care: None Current Living Situation: Spouse Other Information That Helps Us Care for You: No Feels Safe at Home: Yes Safety Concerns: Feels Safe At This Time Smoking Status: Former smoker Cigarettes Per Day: 40 Do You Dip or Chew Tobacco: No Second Hand Exposure: No Tobacco Cessation Education Requested by Patient: No Hx Substance Use: No Review of Systems Review of Systems: All systems reviewed & are unremarkable except as noted in HPI & below Physical Exam Constitutional: WD/WN, vitals as above + obese and comfortable; no acute distress Eyes: PERRL, conjunctivae normal, anicteric sclerae ENMT: external ear and nose normal, oropharynx normal Neck: trachea midline, no thyromegaly neck nontender Respiratory: normal respiratory effort, lungs clear to auscultation normal percussion; does not use accessory muscles Cardiovascular: Rate/Rhythm: regular rate and regular rhythm Heart Sounds: normal S1 and normal S2; no gallop, no murmur and no cardiac rub Vessels: normal peripheral pulses; no JVD Gastrointestinal (Abdomen): Inspection/Auscultation: abdomen normal to inspection and normal bowel sounds Percussion/Palpation: + abdomen tender (Right flank); no hepatosplenomegaly Musculoskeletal: no cyanosis or clubbing, extremities motor strength 5/5 Spine: thoracic spine normal to inspection and lumbar spine normal to inspection; no cervical spinal tenderness Skin: no rashes, warm and dry normal turgor; no lesions Neurologic: patellar DTR's 2+ bilat, sensation intact no focal motor deficits Psychiatric: A+Ox3, euthymic affect Orientation: cooperative Lymphatic: no cervical or axillary lymphadenopathy no inguinal lymphadenopathy Results & Data Vital Signs (Past 12 Hours) Vital Signs Temp Pulse Pulse Resp BP Pulse Ox 10/14/18 07:36 36.3 C L 76 20 156/89 H 92 10/14/18 05:59 92 H 184/81 H 10/14/18 04:00 37.2 C 88 18 130/77 90 10/14/18 00:00 119 H Laboratory Results Short CBC 10/13/18 10/14/18 Range/Units 18:30 04:22 WBC 15.69 H 14.02 H (4.8-10.8) K/uL Hgb 15.1 13.9 L (14.0-18.0) g/dL Hct 44.7 41.8 L (42-52) % Plt Count 158 141 (130-400) K/uL BMP 10/13/18 10/14/18 18:30 04:22 Sodium 137 140 Potassium 4.6 4.3 Chloride 104 109 H Carbon Dioxide 29 26 BUN 21 H 18 Creatinine 1.54 H 1.44 H Glucose 118 H 122 H Calcium 9.5 8.8 Liver Function 10/13/18 Range/Units 18:30 Total Bilirubin 0.5 (0.2-1) mg/dl AST 13 L (15-37) U/L ALT 25 (12-78) U/L Alkaline Phosphatase 96 (45-117) U/L Albumin 3.2 L (3.4-5.0) gm/dl Urine 10/13/18 Range/Units 19:00 Urine Color Yellow Urine Appearance Cloudy A (Clear) Urine pH 5.0 (4.5-7.5) Ur Specific [place] 1.017 (1.000-1.030) Urine Protein 2+ H (Negative) Urine Glucose (UA) Negative (Negative) Diagnostic Findings Microbiology 10/13/18 19:00 Urine,Clean Catch Urine Culture - Preliminary Gram negative bacilli cc: ~ ABDOMEN AND PELVIS CT WITHOUT CONTRAST CT DOSE: 1134.28 mGycm HISTORY: dysuria hematuria sepsis ro code infected stone TECHNIQUE: Multiaxial CT images of the abdomen and pelvis were performed without contrast. A dose lowering technique was utilized adhering to the principles of ALARA. COMPARISON STUDY: Abdomen and pelvis CT 01/20/2010. FINDINGS: Left basilar linear densities favor subsegmental atelectasis. No pneumoperitoneum. No pneumatosis. Poststernotomy changes. Hepatic steatosis. A few small gallstones. The unenhanced spleen and adrenal glands are unremarkable. There are few punctate calcifications within the pancreas, unchanged. This is consistent with chronic pancreatitis. No evidence for acute pancreatitis at this time. The left kidney is absent. An aortobiiliac graft is noted. Tiny fat- containing ventral hernias, unchanged. No retroperitoneal lymphadenopathy. The prostate gland is mildly enlarged. The bladder is decompressed by Davidson catheter. Small amount of gas within the bladder lumen is likely due to the catheterization. There is mild bladder wall thickening with mild adjacent fat stranding. Mild urothelial thickening within the right renal pelvis and right ureter with progressive right perinephric fat stranding/edema. Mild fullness within the right renal collecting system without ginger hydronephrosis. No renal or ureteral calculi. Suboptimal evaluation for bowel pathology due to the lack of intravenous and oral contrast. However, there is no definite bowel wall thickening or obstruction. The appendix is not identified and reportedly surgically absent. A few colonic diverticula. No evidence for diverticulitis. IMPRESSION: 1. No renal or ureteral stones. Mild fullness within the right renal collecting system without ginger hydronephrosis. 2. Progressive right perinephric edema/fat stranding as well as urothelial thickening within the right renal pelvis and right ureter. This favors a pyelitis/pyelonephritis. 3. There is also mild thickening and fat stranding within the bladder wall likely representing a cystitis. Recommend correlation with urinalysis. Electronically signed by: Terrence Ellison M.D. 10/13/2018 7:34 PM Dictated: 10/13/181927 Transcribed: 10/13/181927
[2018-10-14] MEDS: DOXYCYCLINE HYCLATE 100 MG in DEXTROSE 5% 100 ML IV SCH ×2 (11:17→22:25)
--- NOTE | 2018-10-14 14:39 | Urology Consultation ---
Date of Consultation October 14, 2018 Assessment & Plan (1) Pyelonephritis: (2) UTI (urinary tract infection): 68yo M with PMHx solitary R kidney, UTI, early pyelo, sepsis. Question of early pneumonia as well. Findings and careplan discussed with Dr. Palomo. CT consistent with early pyelonephritis, no obstruction. Afebrile x12 hours but would expect fevers to continue for next 48 hours. UC&S prelim positive for gram neg bacilli. Currently on broad spectrum abx per ID. No indication for surgical intervention at this time. We will continue to follow while inpatient. Thank you for allowing us to participate in the acute care of Mr. Cardona. History of Present Illness Reason for Consultation: recurrent UTI, pyelo Requesting Physician: Dr. Barajas Attending Physician: Haleigh Barajas MD History of Present Illness 68yo M established with our practice with known solitary R kidney, s/p TURP for urinary retention issues, CHF, CKD III, CVA x5 with expressive aphasia presented to [facility] ED with fevers, dysuria and increased urinary frequency. Per , patient had foul smelling urine on Thursday, developed dysuria on Thursday, then fevers >100F which prompted ED evaluation. CT reveals developing pyelonephritis of solitary R kidney, no obstruction or stones. Tmax 39.2, tachycardic, with elevated WBC. UA suspicious for infection. UC&S prelim >100,000 cfu G neg bacilli. BCx pending. Past notes reviewed, recently admitted for sepsis, E.Coli UTI end of Jun, again in mid-August with ESBL + E.Coli UTI. He was then followed up with Dr. Kasper in August between admissions. Cystoscopy done, essentially negative except some regrowth of lateral prostate tissue, started on dutasteride. Pt is awake and alert, able to ambulate independently to bathroom prior to my evaluation. and another family member at bedside at time of evaluation. Catheter placed in ED, unsure if he was retaining at the time. Notes do not indicate, patient and unsure. Having some urgency and bladder spasms with catheter in place per . States prior to admission, voiding without trouble. Feels he empties well. He has baseline frequency, urgency. Allergies Allergy/AdvReac Type Severity Reaction Status Date / Time aspirin AdvReac Intermediate RELAXES Verified 10/13/18 20:44 RECTUM atorvastatin AdvReac Intermediate RELAXED Verified 10/13/18 20:44 RECTAL SPHINCTER Home Medications Home Medications Medication Instructions Recorded Confirmed Type allopurinol 100 mg PO DAILY 07/13/18 10/13/18 History clopidogrel 75 mg PO QPM 07/13/18 10/13/18 History famotidine 20 mg PO BID 07/13/18 10/13/18 History hydralazine 10 mg PO TID 07/13/18 10/13/18 History metoprolol tartrate 50 mg PO Q8 07/13/18 10/13/18 History multivitamin 1 tab PO DAILY 07/13/18 10/13/18 History pravastatin 40 mg PO DAILY 07/13/18 10/13/18 History trazodone 50 mg PO HS 07/13/18 10/13/18 History acetaminophen [Tylenol Arthritis 1,300 mg PO Q12H PRN 08/26/18 10/13/18 History Pain] oxybutynin chloride 5 mg PO TID PRN 08/26/18 10/13/18 History sennosides [Vegetable Laxative] 8.6 mg PO BID PRN 08/26/18 10/13/18 History Lactobacillus acidoph-L.bulgar 1 tab PO BID #14 tab 08/30/18 10/13/18 Rx [Lactinex] amlodipine [Norvasc] 10 mg PO DAILY 10/13/18 10/13/18 History cyanocobalamin (vitamin B-12) 100 mcg PO DAILY 10/13/18 10/13/18 History diclofenac sodium [Voltaren] 2 g TOPICAL BID PRN 10/13/18 10/13/18 History Patient History Medical History Gout (Chronic) Urinary retention (Chronic) Pulmonary nodule (Chronic) CXR [facility] 07/03/18: 1.3 cm right midlung nodule, slightly enlarged compared to 04/18/15. F/U with CT recommended. Hypertension (Chronic) COPD (chronic obstructive pulmonary disease) (Chronic) History of intracranial hemorrhage (Chronic) parenchymal hemorrhage perioperatively during / after carotid surgery CKD (chronic kidney disease), stage III (Chronic) Solitary kidney (Chronic) atrophic left kidney, nephrectomy performed for hypertension Dyslipidemia (Chronic) Chronic systolic CHF (congestive heart failure) (Chronic) Coronary artery disease (Chronic) s/p CABG Cerebrovascular disease (Chronic) s/p multiple ischemic strokes Stroke (Resolved) Peripheral vascular disease (Chronic) Surgical History Status post abdominal aortic aneurysm (AAA) repair (Chronic) Status post carotid endarterectomy (Chronic) Status post coronary artery bypass graft (Chronic) Status post nephrectomy (Chronic) left atrophic, nonfunctional associated with hypertension Status post transurethral resection of prostate (Chronic) Family History Sister Diabetes Social History Preferred Language: [place] Communication Ability: Effective Beliefs That Will Affect Care: None Current Living Situation: Spouse Other Information That Helps Us Care for You: No Feels Safe at Home: Yes Safety Concerns: Feels Safe At This Time Smoking Status: Former smoker Cigarettes Per Day: 40 Do You Dip or Chew Tobacco: No Second Hand Exposure: No Tobacco Cessation Education Requested by Patient: No Hx Substance Use: No Review of Systems Constitutional: + sweats; no fever and no chills Eyes: no problem reported Ear, Nose, Mouth, Throat: no ear pain and no tinnitus Respiratory: no cough and no dyspnea Cardiovascular: no chest pain Gastrointestinal: no abdominal pain, no nausea and no vomiting Genitourinary: + dysuria and + urinary urgency Musculoskeletal: no back pain and no neck pain Integumentary: no acne and no boil Neurologic: no numbness and no paresthesia Psychiatric: no behavioral changes and no hopelessness expressive aphasia, baseline. Endocrine: no polydipsia Hematologic / Lymphatic: no easy bleeding Physical Exam Constitutional: no acute distress Eyes: no nystagmus ENMT: Ears: no hearing impairment Neck: trachea midline Respiratory: no respiratory distress Cardiovascular: Vessels: no JVD Chest (Breasts): Chest: no mass Gastrointestinal (Abdomen): Inspection/Auscultation: abdomen not distended and no abdominal edema Percussion/Palpation: abdomen soft; abdomen nontender Musculoskeletal: Head/Neck/Chest: normocephalic and head atraumatic Skin: no rashes and no ulcers Neurologic: awake; not confused and not obtunded Psychiatric: Orientation: alert and oriented x 3 Eye Contact: good eye contact Speech: no pressured speech Genitourinary: no CVA tenderness escobedo catheter draining hazy yellow Lymphatic: no lymphedema Results & Data Vital Signs (Past 12 Hours) Vital Signs Temp Pulse Resp BP Pulse Ox 10/14/18 11:13 36.8 C 74 22 131/79 92 10/14/18 11:10 36.8 C 75 22 92 10/14/18 07:36 36.3 C L 76 20 156/89 H 92 10/14/18 05:59 92 H 184/81 H 10/14/18 04:00 37.2 C 88 18 130/77 90 Laboratory Results Laboratory Results - last 48 hr 10/13/18 10/13/18 10/13/18 18:30 18:30 18:30 WBC 15.69 H RBC 4.77 Hgb 15.1 Hct 44.7 MCV 93.7 MCH 31.7 MCHC 33.8 RDW Std Deviation 47.2 H RDW Coeff of Ketan 13.8 Plt Count 158 MPV 9.4 Immature Gran % (Auto) 0.3 Neut % (Auto) 75.1 Lymph % (Auto) 6.1 Desha % (Auto) 17.9 Eos % (Auto) 0.3 Baso % (Auto) 0.3 Immature Gran # (Auto) 0.04 H Neut # (Auto) 11.79 H Lymph # (Auto) 0.95 L Desha # (Auto) 2.81 H Eos # (Auto) 0.05 Baso # (Auto) 0.05 PT 9.9 INR 1.0 APTT 26.4 PTT Ratio 1.0 Sodium 137 Potassium 4.6 Chloride 104 Carbon Dioxide 29 Anion Gap 4.0 BUN 21 H Creatinine 1.54 H Est Cr Clr Drug Dosing 50.3 Est GFR ( Amer) 52.2 Est GFR (Non-Af Amer) 45.0 BUN/Creatinine Ratio 13.3 Glucose 118 H POC Lactic Acid Eleazar Lactate Calcium 9.5 Total Bilirubin 0.5 AST 13 L ALT 25 Alkaline Phosphatase 96 Total Protein 7.1 Albumin 3.2 L Globulin 3.9 Albumin/Globulin Ratio 0.8 L Urine Color Urine Appearance Urine pH Ur Specific [place] Urine Protein Urine Glucose (UA) Urine Ketones Urine Blood Urine Nitrite Urine Bilirubin Urine Urobilinogen Ur Leukocyte Esterase Urine WBC (Auto) Urine RBC (Auto) U Hyaline Cast (Auto) U Epithel Cells (Auto) Urine Bacteria (Auto) 10/13/18 10/13/18 10/13/18 19:00 19:54 21:38 WBC RBC Hgb Hct MCV MCH MCHC RDW Std Deviation RDW Coeff of Ketan Plt Count MPV Immature Gran % (Auto) Neut % (Auto) Lymph % (Auto) Desha % (Auto) Eos % (Auto) Baso % (Auto) Immature Gran # (Auto) Neut # (Auto) Lymph # (Auto) Desha # (Auto) Eos # (Auto) Baso # (Auto) PT INR APTT PTT Ratio Sodium Potassium Chloride Carbon Dioxide Anion Gap BUN Creatinine Est Cr Clr Drug Dosing Est GFR ( Amer) Est GFR (Non-Af Amer) BUN/Creatinine Ratio Glucose POC Lactic Acid Eleazar 1.37 Lactate Calcium Total Bilirubin AST ALT Alkaline Phosphatase Total Protein Albumin Globulin Albumin/Globulin Ratio Urine Color Yellow Urine Appearance Cloudy A Urine pH 5.0 Ur Specific [place] 1.017 Urine Protein 2+ H Urine Glucose (UA) Negative Urine Ketones Negative Urine Blood 3+ H Urine Nitrite Positive A Urine Bilirubin Negative Urine Urobilinogen Negative Ur Leukocyte Esterase 3+ H Urine WBC (Auto) >30 H Urine RBC (Auto) >30 H U Hyaline Cast (Auto) 1-5 U Epithel Cells (Auto) 0-5 Urine Bacteria (Auto) 2+ H 10/13/18 10/14/18 10/14/18 22:45 04:22 04:22 WBC 14.02 H RBC 4.49 L Hgb 13.9 L Hct 41.8 L MCV 93.1 MCH 31.0 MCHC 33.3 RDW Std Deviation 47.0 H RDW Coeff of Ketan 13.7 Plt Count 141 MPV 9.5 Immature Gran % (Auto) 0.4 Neut % (Auto) 70.6 Lymph % (Auto) 10.7 Desha % (Auto) 18.1 Eos % (Auto) 0.0 Baso % (Auto) 0.2 Immature Gran # (Auto) 0.05 H Neut # (Auto) 9.90 H Lymph # (Auto) 1.50 Desha # (Auto) 2.54 H Eos # (Auto) 0.00 Baso # (Auto) 0.03 PT INR APTT PTT Ratio Sodium 140 Potassium 4.3 Chloride 109 H Carbon Dioxide 26 Anion Gap 5.0 BUN 18 Creatinine 1.44 H Est Cr Clr Drug Dosing 54.3 Est GFR ( Amer) 56.6 Est GFR (Non-Af Amer) 48.9 BUN/Creatinine Ratio 12.7 Glucose 122 H POC Lactic Acid Eleazar Lactate 2.8 H* Calcium 8.8 Total Bilirubin AST ALT Alkaline Phosphatase Total Protein Albumin Globulin Albumin/Globulin Ratio Urine Color Urine Appearance Urine pH Ur Specific [place] Urine Protein Urine Glucose (UA) Urine Ketones Urine Blood Urine Nitrite Urine Bilirubin Urine Urobilinogen Ur Leukocyte Esterase Urine WBC (Auto) Urine RBC (Auto) U Hyaline Cast (Auto) U Epithel Cells (Auto) Urine Bacteria (Auto) 10/14/18 04:22 WBC RBC Hgb Hct MCV MCH MCHC RDW Std Deviation RDW Coeff of Ketan Plt Count MPV Immature Gran % (Auto) Neut % (Auto) Lymph % (Auto) Desha % (Auto) Eos % (Auto) Baso % (Auto) Immature Gran # (Auto) Neut # (Auto) Lymph # (Auto) Desha # (Auto) Eos # (Auto) Baso # (Auto) PT INR APTT PTT Ratio Sodium Potassium Chloride Carbon Dioxide Anion Gap BUN Creatinine Est Cr Clr Drug Dosing Est GFR ( Amer) Est GFR (Non-Af Amer) BUN/Creatinine Ratio Glucose POC Lactic Acid Eleazar Lactate 0.7 Calcium Total Bilirubin AST ALT Alkaline Phosphatase Total Protein Albumin Globulin Albumin/Globulin Ratio Urine Color Urine Appearance Urine pH Ur Specific [place] Urine Protein Urine Glucose (UA) Urine Ketones Urine Blood Urine Nitrite Urine Bilirubin Urine Urobilinogen Ur Leukocyte Esterase Urine WBC (Auto) Urine RBC (Auto) U Hyaline Cast (Auto) U Epithel Cells (Auto) Urine Bacteria (Auto) (1) UTI (urinary tract infection) Hematuria presence: without hematuria Urinary tract infection type: acute cystitis Qualified Code(s): N30.00 - Acute cystitis without hematuria
[2018-10-14] MEDS: IMIPENEM/CILASTATIN SODIUM 500 MG in DEXTROSE 5% 100 ML IV SCH (15:45)
--- NOTE | 2018-10-14 17:35 | Hospitalist Progress Note ---
Date of Service October 14, 2018 Assessment & Plan (1) Sepsis: met criteria for sepsis on admission ;presented with fever T 39.2 /tachycardia HR 105/POC Lactic acid 1.3/leukocytosis WBC 15K Due to UTI -E coli ESBL appreciate input from ID recommend to cont with IV Ertapenem (2) Pyelonephritis: Patient presented with dysuria fever and weakness x1 H/O Hospitalization 08/2018 ESBL + E. coli UTI. Was initially treated with ceftriaxone and transitioned to ertapenem x7 days. UA: 2+ protein, 3+ blood, + nitrite, 3+ leukocyte esterase, > 30 WBC and RBC, 2+ bacteria CT abdomen/pelvis: 1. No renal or ureteral stones. Mild fullness within the right renal collecting system without ginger hydronephrosis. 2. Progressive right perinephric edema/fat stranding as well as urothelial thickening within the right renal pelvis and right ureter. This favors a pyelitis/pyelonephritis. 3. There is also mild thickening and fat stranding within the bladder wall likely representing a cystitis. Recommend correlation with urinalysis. cont Tx with IV Invanz urine culture + ESBL Ecoli ID consulted , appreciate input (3) Pneumonia: CXR: Left basilar opacity, in part due to prominent epicardial fat pad. S uperimposed consolidation cannot be excluded. -added Doxycycline empirically no complain of SOB or cough - CT Chest: 1. Emphysema. 2. There is an abrupt cut off within the proximal segmental bronchi of the right middle lobe with a hypoplastic versus collapsed right middle lobe. If the patient has not had prior surgery within the right middle lobe, then consider follow-up bronchoscopy for further evaluation. 3. Nodular densities described within the right lung base on the prior study represent sclerotic foci within the right anterior fifth rib with the largest measuring 1.2 cm. These are indeterminate but could represent bone islands in the absence of a known malignancy. 4. Mild interstitial thickening and small patchy densities within the left lower lobe posteriorly. This favors atelectasis. A low-grade pneumonitis could also have a similar appearance. - RT MIDDLE LUNG COLLAPSE: incidental finding in CT chest pulmonology consulted appreciate input pt had chest tube placement for itatrogenic pneumothorax in 1998/possible residual scar indeterminate 12 mm nodule noted on rt middle lobe , new compared to previous chest xray hx of smoking in past will need diagnostic bronchoscopy with biopsy electively at later date when medically stable ( resolution of UTI /infection ) (4) Urinary retention: S/P TURP. Chronic urinary frequency -Escobedo cath was placed in ER -Urology consult appreciated no urologic procedure recommended escobedo can be D/vee prior to discharge pt home out pt follow up with Urology (5) Coronary artery disease: S/P CABG No CP, SOB -Continue plavix, metoprolol, amlodipine, statin (6) Chronic systolic CHF (congestive heart failure): LVEF 25%. Underlying ishcemic +/- hypertensive heart disease. MARTINA / ARB contraindicated in light of CKD. Continue metoprolol, hydralazine. 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 Baseline: 1.4-1.6 -monitor renal functions -avoid nephrotoxic agents when possible (9) Cerebrovascular disease: H/O Multiple ischemic strokes. H/O parenchymal hemorrhage perioperatively during carotid surgery. Has residual aphasia At baseline -continue plavix, pravastatin, BP meds (10) Hypertension: Stable. BP: 141/79, 155/83 -Continue metoprolol, amlodipine, hydralazine with holding parameters (11) COPD (chronic obstructive pulmonary disease): No reported cough or SOB -incentive spirometry (12) Gout: -Continue allopurinol DVT Prophylaxis -SCDs Full Code as per discussion with pt and pt's Follows with Dr Syed for routine care ordered for PT/OT -to assess functional status prior to discharge home update given to pt's over phone Subjective pt denies of any pain or discomfort no fever or chills normal appetite and energy level escobedo draining clear urine no complain of abdominal pain or flank pain Physical Exam Constitutional: WD/WN, vitals as above + obese and comfortable; no acute distress Eyes: PERRL, conjunctivae normal, anicteric sclerae ENMT: external ear and nose normal, oropharynx normal Ears: no hearing impairment Neck: trachea midline, no thyromegaly Respiratory: normal respiratory effort, lungs clear to auscultation Cardiovascular: Rate/Rhythm: regular rate and regular rhythm Heart Sounds: normal S1 and normal S2 Vessels: normal peripheral pulses; no JVD Gastrointestinal (Abdomen): Inspection/Auscultation: normal bowel sounds Percussion/Palpation: abdomen soft; abdomen nontender and no hepatosplenomegaly Musculoskeletal: no cyanosis or clubbing, extremities motor strength 5/5 Head/Neck/Chest: normocephalic and head atraumatic Skin: no rashes, warm and dry no rashes, no lesions and no ulcers Neurologic: awake; no focal motor deficits and not confused Psychiatric: A+Ox3, euthymic affect Orientation: alert, oriented x 3 and cooperative Genitourinary: no CVA tenderness Results & Data Vital Signs (Past 12 Hours) Vital Signs Temp Pulse Resp BP Pulse Ox 10/14/18 15:53 36.9 C 90 22 152/82 H 96 10/14/18 11:13 36.8 C 74 22 131/79 92 10/14/18 11:10 36.8 C 75 22 92 10/14/18 07:36 36.3 C L 76 20 156/89 H 92 10/14/18 05:59 92 H 184/81 H (1) Coronary artery disease Associated angina: without angina Coronary Disease-Associated Artery/Lesion type: [place] artery [place] vs. transplanted heart: [place] heart Qualified Code(s): I25.10 - Atherosclerotic heart disease of [place] coronary artery without angina pectoris (2) Sepsis Sepsis type: sepsis due to unspecified organism Qualified Code(s): A41.9 - Sepsis, unspecified organism (3) COPD (chronic obstructive pulmonary disease) COPD type: unspecified COPD Qualified Code(s): J44.9 - Chronic obstructive pulmonary disease, unspecified (4) Hypertension Hypertension type: unspecified Qualified Code(s): I10 - Essential (primary) hypertension (5) Pneumonia Laterality: left Lung location: lower lobe of lung Pneumonia type: due to unspecified organism Qualified Code(s): J18.1 - Lobar pneumonia, unspecified organism
[2018-10-14] MEDS: TRAZODONE HCL 50 MG TAB PO SCH (20:04)
[2018-10-14] MEDS: CLOPIDOGREL BISULFATE 75 MG TAB PO SCH (20:04)
--- NOTE | 2018-10-14 20:05 | Pulmonary Consultation ---
Date of Consultation October 14, 2018 Assessment & Plan (1) Pulmonary nodule: The nodule has been present on CXR since 2014 per records. I have no prior CT scans Family will discuss possibility of a bronch tomorrow at the bedside when the is here Defer non pulmonary management to primary team History of Present Illness Reason for Consultation: RML collapse Requesting Physician: Ricci Barajas MD Attending Physician: Haleigh Barajas MD History of Present Illness This is a 68 y/o M with PMH of ischemic heart disease, systolic CHF (EF 25%), CVA, solitary kidney, CKD III, HTN, dyslipidemia, COPD, urinary retention, gout who was admitted for management of pyelonephritis. The patient had a CT of the chest and it shows he has atelectatic RML. Pulmonary was consulted At the bedside he dwbiwa SOB and he was lying flat but he has partial expressive aphasia and he could not remember if he had any procedure on his Right lung He did smoke intermittantly in the past. He referred me to his and I called her. She mentioned that in 1998 he had pancreatitis and treated at [facility] where they tried to place a feeding tube and they caused a pneumothorax so a chest tube was placed but it was in the wrong place and they placed a second one and this is why he has the scars over the ribs on the RLL. However, no lung surgeries or resections were done. The was intrigued about the finding and expressed her wish to find out why and I told her we can do a bronch. In 06/2018 there was a CXR which showed RML field nodule and a non emergent CT was recommended but it has not been done until now. Allergies Allergy/AdvReac Type Severity Reaction Status Date / Time aspirin AdvReac Intermediate RELAXES Verified 10/13/18 20:44 RECTUM atorvastatin AdvReac Intermediate RELAXED Verified 10/13/18 20:44 RECTAL SPHINCTER Home Medications Home Medications Medication Instructions Recorded Confirmed Type allopurinol 100 mg PO DAILY 07/13/18 10/13/18 History clopidogrel 75 mg PO QPM 07/13/18 10/13/18 History famotidine 20 mg PO BID 07/13/18 10/13/18 History hydralazine 10 mg PO TID 07/13/18 10/13/18 History metoprolol tartrate 50 mg PO Q8 07/13/18 10/13/18 History multivitamin 1 tab PO DAILY 07/13/18 10/13/18 History pravastatin 40 mg PO DAILY 07/13/18 10/13/18 History trazodone 50 mg PO HS 07/13/18 10/13/18 History acetaminophen [Tylenol Arthritis 1,300 mg PO Q12H PRN 08/26/18 10/13/18 History Pain] oxybutynin chloride 5 mg PO TID PRN 08/26/18 10/13/18 History sennosides [Vegetable Laxative] 8.6 mg PO BID PRN 08/26/18 10/13/18 History Lactobacillus acidoph-L.bulgar 1 tab PO BID #14 tab 08/30/18 10/13/18 Rx [Lactinex] amlodipine [Norvasc] 10 mg PO DAILY 10/13/18 10/13/18 History cyanocobalamin (vitamin B-12) 100 mcg PO DAILY 10/13/18 10/13/18 History diclofenac sodium [Voltaren] 2 g TOPICAL BID PRN 10/13/18 10/13/18 History Patient History Medical History Gout (Chronic) Urinary retention (Chronic) Pulmonary nodule (Chronic) CXR [facility] 07/03/18: 1.3 cm right midlung nodule, slightly enlarged compared to 04/18/15. F/U with CT recommended. Hypertension (Chronic) COPD (chronic obstructive pulmonary disease) (Chronic) History of intracranial hemorrhage (Chronic) parenchymal hemorrhage perioperatively during / after carotid surgery CKD (chronic kidney disease), stage III (Chronic) Solitary kidney (Chronic) atrophic left kidney, nephrectomy performed for hypertension Dyslipidemia (Chronic) Chronic systolic CHF (congestive heart failure) (Chronic) Coronary artery disease (Chronic) s/p CABG Cerebrovascular disease (Chronic) s/p multiple ischemic strokes Stroke (Resolved) Peripheral vascular disease (Chronic) Surgical History Status post abdominal aortic aneurysm (AAA) repair (Chronic) Status post carotid endarterectomy (Chronic) Status post coronary artery bypass graft (Chronic) Status post nephrectomy (Chronic) left atrophic, nonfunctional associated with hypertension Status post transurethral resection of prostate (Chronic) Family History Sister Diabetes Social History Preferred Language: Grenadian Communication Ability: Effective Beliefs That Will Affect Care: None Current Living Situation: Spouse Other Information That Helps Us Care for You: No Feels Safe at Home: Yes Safety Concerns: Feels Safe At This Time Smoking Status: Former smoker Cigarettes Per Day: 40 Do You Dip or Chew Tobacco: No Second Hand Exposure: No Tobacco Cessation Education Requested by Patient: No Hx Substance Use: No Review of Systems Review of Systems: All systems reviewed & are unremarkable except as noted in HPI & below and in the notes of the PCP Physical Exam Constitutional: WD/WN, vitals as above Eyes: PERRL, conjunctivae normal, anicteric sclerae ENMT: external ear and nose normal, oropharynx normal Neck: trachea midline, no thyromegaly Respiratory: normal respiratory effort, lungs clear to auscultation Cardiovascular: Rate/Rhythm: regular rate and regular rhythm Heart Sounds: normal S1 and normal S2 Gastrointestinal (Abdomen): morbid obesity scars of prior CT tubes on right lower ribs and sternotomy scars Non tender no megalies and BS normal Musculoskeletal: no cyanosis or clubbing, extremities motor strength 5/5 Neurologic: patient moves all four extremities but has expressive aphasia and memory problems. Results & Data Vital Signs (Past 12 Hours) Vital Signs Temp Pulse Resp BP BP Pulse Ox 10/14/18 17:48 36.8 C 89 20 148/87 H 95 10/14/18 15:53 36.9 C 90 22 152/82 H 96 10/14/18 11:13 36.8 C 74 22 131/79 92 10/14/18 11:10 36.8 C 75 22 92
[2018-10-15] MEDS: IMIPENEM/CILASTATIN SODIUM 500 MG in DEXTROSE 5% 100 ML IV SCH ×4 (00:26→16:58)
[2018-10-15] MEDS: METOPROLOL TARTRATE 50 MG TAB PO SCH ×3 (05:39→21:00)
[2018-10-15] MEDS: MULTIVITAMIN TAB PO SCH (07:21)
[2018-10-15] MEDS: HydrALAZINE 10 MG TAB PO SCH ×3 (07:21→21:00)
[2018-10-15] MEDS: FAMOTIDINE 20 MG TAB PO SCH ×2 (07:22→20:59)
[2018-10-15] MEDS: CYANOCOBALAMIN (VITAMIN B-12) 100 MCG TABLET PO SCH (07:22)
[2018-10-15] MEDS: AMLODIPINE BESYLATE 5 MG TAB PO SCH (07:23)
[2018-10-15] MEDS: PRAVASTATIN SOD 40 MG TAB PO SCH (07:23)
[2018-10-15] MEDS: ALLOPURINOL 100 MG TAB PO SCH (07:23)
--- NOTE | 2018-10-15 07:56 | Urology Progress Note ---
Date of Service October 15, 2018 Assessment & Plan (1) UTI (urinary tract infection): 68yo M with PMHx solitary R kidney, UTI, early pyelo, sepsis. Question of early pneumonia as well. UC&S final - ESBL +e.coli Currently on broad spectrum abx per ID recommendations. Plan for potential bronchoscopy in near future per Pulmonary. No new recommendations per , no indication for surgical intervention. Okay to d/c escobedo once no longer needed by primary team. Thank you for allowing us to participate in the acute care of Mr. Cardona. We will arrange close follow-up by our office. Please reconsult us with questions, concerns or changes in patient status. Subjective 68yo M with PMHx solitary R kidney, CKD III admitted with UTI, early sepsis and possible pneumonia. No new issues overnight. No family at bedside this AM. Afebrile with stable VS. Denies any flank or suprapubic pain. Tolerating catheter well, did report one episode of leaking overnight - likely bladder spasm. Labs not available to review this AM. UC&S final - E.Coli with ESBL Pulmonary also involved in care, potential bronchoscopy in near future. Review of Systems Review of Systems: All systems reviewed & are unremarkable except as noted in HPI & below Results & Data Vital Signs (Past 12 Hours) Vital Signs Temp Pulse Resp BP BP Pulse Ox 10/15/18 06:58 37.4 C 80 18 172/91 H 90 10/15/18 05:38 86 139/78 10/14/18 23:55 180/102 H 171/99 H 10/14/18 23:00 37.3 C 101 H 19 168/89 H 172/102 H 92 Laboratory Results Laboratory Results - last 48 hr 10/13/18 10/13/18 10/13/18 18:30 18:30 18:30 WBC 15.69 H RBC 4.77 Hgb 15.1 Hct 44.7 MCV 93.7 MCH 31.7 MCHC 33.8 RDW Std Deviation 47.2 H RDW Coeff of Ketan 13.8 Plt Count 158 MPV 9.4 Immature Gran % (Auto) 0.3 Neut % (Auto) 75.1 Lymph % (Auto) 6.1 [place] % (Auto) 17.9 Eos % (Auto) 0.3 Baso % (Auto) 0.3 Immature Gran # (Auto) 0.04 H Neut # (Auto) 11.79 H Lymph # (Auto) 0.95 L [place] # (Auto) 2.81 H Eos # (Auto) 0.05 Baso # (Auto) 0.05 PT 9.9 INR 1.0 APTT 26.4 PTT Ratio 1.0 Sodium 137 Potassium 4.6 Chloride 104 Carbon Dioxide 29 Anion Gap 4.0 BUN 21 H Creatinine 1.54 H Est Cr Clr Drug Dosing 50.3 Est GFR ( Amer) 52.2 Est GFR (Non-Af Amer) 45.0 BUN/Creatinine Ratio 13.3 Glucose 118 H POC Lactic Acid Eleazar Lactate Calcium 9.5 Total Bilirubin 0.5 AST 13 L ALT 25 Alkaline Phosphatase 96 Total Protein 7.1 Albumin 3.2 L Globulin 3.9 Albumin/Globulin Ratio 0.8 L Urine Color Urine Appearance Urine pH Ur Specific [place] Urine Protein Urine Glucose (UA) Urine Ketones Urine Blood Urine Nitrite Urine Bilirubin Urine Urobilinogen Ur Leukocyte Esterase Urine WBC (Auto) Urine RBC (Auto) U Hyaline Cast (Auto) U Epithel Cells (Auto) Urine Bacteria (Auto) 10/13/18 10/13/18 10/13/18 19:00 19:54 21:38 WBC RBC Hgb Hct MCV MCH MCHC RDW Std Deviation RDW Coeff of Ketan Plt Count MPV Immature Gran % (Auto) Neut % (Auto) Lymph % (Auto) [place] % (Auto) Eos % (Auto) Baso % (Auto) Immature Gran # (Auto) Neut # (Auto) Lymph # (Auto) [place] # (Auto) Eos # (Auto) Baso # (Auto) PT INR APTT PTT Ratio Sodium Potassium Chloride Carbon Dioxide Anion Gap BUN Creatinine Est Cr Clr Drug Dosing Est GFR ( Amer) Est GFR (Non-Af Amer) BUN/Creatinine Ratio Glucose POC Lactic Acid Eleazar 1.37 Lactate Calcium Total Bilirubin AST ALT Alkaline Phosphatase Total Protein Albumin Globulin Albumin/Globulin Ratio Urine Color Yellow Urine Appearance Cloudy A Urine pH 5.0 Ur Specific [place] 1.017 Urine Protein 2+ H Urine Glucose (UA) Negative Urine Ketones Negative Urine Blood 3+ H Urine Nitrite Positive A Urine Bilirubin Negative Urine Urobilinogen Negative Ur Leukocyte Esterase 3+ H Urine WBC (Auto) >30 H Urine RBC (Auto) >30 H U Hyaline Cast (Auto) 1-5 U Epithel Cells (Auto) 0-5 Urine Bacteria (Auto) 2+ H 10/13/18 10/14/18 10/14/18 22:45 04:22 04:22 WBC 14.02 H RBC 4.49 L Hgb 13.9 L Hct 41.8 L MCV 93.1 MCH 31.0 MCHC 33.3 RDW Std Deviation 47.0 H RDW Coeff of Ketan 13.7 Plt Count 141 MPV 9.5 Immature Gran % (Auto) 0.4 Neut % (Auto) 70.6 Lymph % (Auto) 10.7 [place] % (Auto) 18.1 Eos % (Auto) 0.0 Baso % (Auto) 0.2 Immature Gran # (Auto) 0.05 H Neut # (Auto) 9.90 H Lymph # (Auto) 1.50 [place] # (Auto) 2.54 H Eos # (Auto) 0.00 Baso # (Auto) 0.03 PT INR APTT PTT Ratio Sodium 140 Potassium 4.3 Chloride 109 H Carbon Dioxide 26 Anion Gap 5.0 BUN 18 Creatinine 1.44 H Est Cr Clr Drug Dosing 54.3 Est GFR ( Amer) 56.6 Est GFR (Non-Af Amer) 48.9 BUN/Creatinine Ratio 12.7 Glucose 122 H POC Lactic Acid Eleazar Lactate 2.8 H* Calcium 8.8 Total Bilirubin AST ALT Alkaline Phosphatase Total Protein Albumin Globulin Albumin/Globulin Ratio Urine Color Urine Appearance Urine pH Ur Specific [place] Urine Protein Urine Glucose (UA) Urine Ketones Urine Blood Urine Nitrite Urine Bilirubin Urine Urobilinogen Ur Leukocyte Esterase Urine WBC (Auto) Urine RBC (Auto) U Hyaline Cast (Auto) U Epithel Cells (Auto) Urine Bacteria (Auto) 10/14/18 04:22 WBC RBC Hgb Hct MCV MCH MCHC RDW Std Deviation RDW Coeff of Ketan Plt Count MPV Immature Gran % (Auto) Neut % (Auto) Lymph % (Auto) [place] % (Auto) Eos % (Auto) Baso % (Auto) Immature Gran # (Auto) Neut # (Auto) Lymph # (Auto) [place] # (Auto) Eos # (Auto) Baso # (Auto) PT INR APTT PTT Ratio Sodium Potassium Chloride Carbon Dioxide Anion Gap BUN Creatinine Est Cr Clr Drug Dosing Est GFR ( Amer) Est GFR (Non-Af Amer) BUN/Creatinine Ratio Glucose POC Lactic Acid Eleazar Lactate 0.7 Calcium Total Bilirubin AST ALT Alkaline Phosphatase Total Protein Albumin Globulin Albumin/Globulin Ratio Urine Color Urine Appearance Urine pH Ur Specific [place] Urine Protein Urine Glucose (UA) Urine Ketones Urine Blood Urine Nitrite Urine Bilirubin Urine Urobilinogen Ur Leukocyte Esterase Urine WBC (Auto) Urine RBC (Auto) U Hyaline Cast (Auto) U Epithel Cells (Auto) Urine Bacteria (Auto) (1) UTI (urinary tract infection) Hematuria presence: without hematuria Urinary tract infection type: acute cystitis Qualified Code(s): N30.00 - Acute cystitis without hematuria
[2018-10-15] MEDS: ERTAPENEM SODIUM 1,000 MG in SODIUM CHLORIDE 0.9% 50 ML IV SCH (11:56)
[2018-10-15] MEDS: OXYBUTYNIN CHLORIDE 5 MG TAB PO SCH ×2 (14:06→21:00)
[2018-10-15 14:16] LABS: Calcium 9.6 mg/dl (8.5-10.1); Creatinine Clr Calc Pharmacy 51.8 ml/min; Est GFR (African American) 53.5; Est GFR (Non-African American) 46.1; Potassium 4.5 mmol/L (3.5-5.1)
--- NOTE | 2018-10-15 16:25 | Infectious Disease Progress Nt ---
Date of Service October 15, 2018 Assessment & Plan (1) Pyelonephritis: Patient with acute urinary tract infection with pyelonephritis with ESBL E. coli. Patient changed to IV ertapenem. Recommend 14 day course. (2) Gram negative sepsis: Subjective Patient seen in follow-up for urinary tract infection. Culture growing ESBL E. coli, have change patient to IV ertapenem. Remains afebrile. No increase in abdominal pain or flank pain. Review of Systems Review of Systems: All systems reviewed & are unremarkable except as noted in HPI & below Physical Exam Constitutional: WD/WN, vitals as above + obese and comfortable; no acute distress Eyes: PERRL, conjunctivae normal, anicteric sclerae ENMT: external ear and nose normal, oropharynx normal Neck: trachea midline, no thyromegaly neck nontender Respiratory: normal respiratory effort, lungs clear to auscultation normal percussion; does not use accessory muscles Cardiovascular: Rate/Rhythm: regular rate and regular rhythm Heart Sounds: normal S1 and normal S2; no gallop, no murmur and no cardiac rub Vessels: normal peripheral pulses; no JVD Gastrointestinal (Abdomen): Inspection/Auscultation: abdomen normal to inspection and normal bowel sounds Percussion/Palpation: + abdomen tender (Right flank); no hepatosplenomegaly Musculoskeletal: no cyanosis or clubbing, extremities motor strength 5/5 Spine: thoracic spine normal to inspection and lumbar spine normal to inspection; no cervical spinal tenderness Skin: no rashes, warm and dry normal turgor; no lesions Neurologic: patellar DTR's 2+ bilat, sensation intact no focal motor deficits Psychiatric: A+Ox3, euthymic affect Orientation: cooperative Lymphatic: no cervical or axillary lymphadenopathy no inguinal lymphadenopathy Results & Data Vital Signs (Past 12 Hours) Vital Signs Temp Pulse Resp BP BP Pulse Ox 10/15/18 15:08 36.8 C 95 H 20 134/84 91 10/15/18 11:59 16 92 10/15/18 11:46 86 163/89 H 10/15/18 06:58 37.4 C 80 18 172/91 H 90 10/15/18 05:38 86 139/78 Laboratory Results BMP 10/15/18 13:38 Sodium 138 Potassium 4.5 Chloride 105 Carbon Dioxide 26 BUN 18 Creatinine 1.51 H Glucose 163 H Calcium 9.6 Diagnostic Findings Microbiology 10/13/18 19:00 Urine,Clean Catch Urine Culture - Final Escherichia coli ESBL 10/13/18 19:44 Blood Aerobic Blood Culture - Preliminary No growth in Aerobic bottle after 24 hours. 10/13/18 19:44 Blood Anaerobic Blood Culture - Preliminary No growth in Anaerobic bottle after 24 hours. 10/13/18 19:35 Blood Aerobic Blood Culture - Preliminary No growth in Aerobic bottle after 24 hours. 10/13/18 19:35 Blood Anaerobic Blood Culture - Preliminary No growth in Anaerobic bottle after 24 hours.
[2018-10-15] MEDS: CLOPIDOGREL BISULFATE 75 MG TAB PO SCH (21:00)
[2018-10-15] MEDS: TRAZODONE HCL 50 MG TAB PO SCH (21:01)
[2018-10-15] MEDS: DOXYCYCLINE HYCLATE 100 MG in DEXTROSE 5% 100 ML IV SCH (22:07)
--- NOTE | 2018-10-15 22:31 | Hospitalist Progress Note ---
Date of Service October 15, 2018 Assessment & Plan (1) Sepsis: resolved clinically stable , afebrile , vitals stable , lactic acid level normalized with IV hydration on admission :met criteria for sepsis on admission ;presented with fever T 39.2 /tachycardia HR 105/POC Lactic acid 1.3/leukocytosis WBC 15K Due to UTI -E coli ESBL appreciate input from ID recommend to cont with IV Ertapenem for total 14 days will order PICC line vs USG guided IV access ( will be adequate for 2 weeks of home IV Abx ) social service consulted to arrange home IV abx therapy (2) Pyelonephritis: Patient presented with dysuria fever and weakness x1 H/O Hospitalization 08/2018 ESBL + E. coli UTI. Was initially treated with ceftriaxone and transitioned to ertapenem x7 days. UA: 2+ protein, 3+ blood, + nitrite, 3+ leukocyte esterase, > 30 WBC and RBC, 2+ bacteria CT abdomen/pelvis: 1. No renal or ureteral stones. Mild fullness within the right renal collecting system without ginger hydronephrosis. 2. Progressive right perinephric edema/fat stranding as well as urothelial thickening within the right renal pelvis and right ureter. This favors a pyelitis/pyelonephritis. 3. There is also mild thickening and fat stranding within the bladder wall like ly representing a cystitis. Recommend correlation with urinalysis. cont Tx with IV Invanz urine culture + ESBL Ecoli ID consulted , appreciate input recommend total 14 days tx (3) Pneumonia: no evidence of pneumonia , possible atelactasis ordered incentive spirometry CXR: Left basilar opacity, in part due to prominent epicardial fat pad. Superi mposed consolidation cannot be excluded. -d/c Doxycycline no complain of SOB or cough - CT Chest: 1. Emphysema. 2. There is an abrupt cut off within the proximal segmental bronchi of the right middle lobe with a hypoplastic versus collapsed right middle lobe. If the patient has not had prior surgery within the right middle lobe, then consider follow-up bronchoscopy for further evaluation. 3. Nodular densities described within the right lung base on the prior study represent sclerotic foci within the right anterior fifth rib with the largest measuring 1.2 cm. These are indeterminate but could represent bone islands in the absence of a known malignancy. 4. Mild interstitial thickening and small patchy densities within the left lower lobe posteriorly. This favors atelectasis. A low-grade pneumonitis could also have a similar appearance. - RT MIDDLE LUNG COLLAPSE: incidental finding in CT chest pulmonology consulted appreciate input pt had chest tube placement for itatrogenic pneumothorax in 1998/possible residual scar indeterminate 12 mm nodule noted on rt middle lobe , new compared to previous chest xray hx of smoking in past will need diagnostic bronchoscopy with biopsy electively at later date when medically stable ( resolution of UTI /infection ) (4) Urinary retention: S/P TURP. Chronic urinary frequency -Escobedo cath was placed in ER -Urology consult appreciated no urologic procedure recommended escobedo can be D/vee prior to discharge pt home out pt follow up with Urology (5) Coronary artery disease: S/P CABG No CP, SOB -Continue plavix, metoprolol, amlodipine, statin (6) Chronic systolic CHF (congestive heart failure): LVEF 25%. Underlying ishcemic +/- hypertensive heart disease. MARTINA / ARB contraindicated in light of CKD. Continue metoprolol, hydralazine. 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 Baseline: 1.4-1.6 -monitor renal functions -avoid nephrotoxic agents when possible (9) Cerebrovascular disease: H/O Multiple ischemic strokes. H/O parenchymal hemorrhage perioperatively during carotid surgery. Has residual aphasia At baseline -continue plavix, pravastatin, BP meds (10) Hypertension: Stable. BP: 141/79, 155/83 -Continue metoprolol, amlodipine, hydralazine with holding parameters (11) COPD (chronic obstructive pulmonary disease): No reported cough or SOB -incentive spirometry (12) Gout: -Continue allopurinol DVT Prophylaxis -SCDs Full Code as per discussion with pt and pt's Follows with Dr Syed for routine care ordered for PT/OT -to assess functional status prior to discharge home plan is to discharge home in next 1-2 days with home IV ABx Subjective pt says he feels fine denies of any pain or discomfort afebrile no complain of abdominal pain , no nausea or vomiting Physical Exam Constitutional: WD/WN, vitals as above no acute distress Eyes: PERRL, conjunctivae normal, anicteric sclerae ENMT: external ear and nose normal, oropharynx normal Neck: trachea midline, no thyromegaly Respiratory: normal respiratory effort, lungs clear to auscultation Cardiovascular: RRR, no murmur, no edema Gastrointestinal (Abdomen): normal bowel sounds, soft, nontender, no hepatosplenomegaly Musculoskeletal: no cyanosis or clubbing, extremities motor strength 5/5 Skin: no rashes, warm and dry Neurologic: PERRL, EOMI, accommodation nl, no face palsy, no dysarthria Psychiatric: Orientation: alert Affect: + flat affect Results & Data Vital Signs (Past 12 Hours) Vital Signs Temp Pulse Resp BP BP Pulse Ox 10/15/18 15:08 36.8 C 95 H 20 134/84 91 10/15/18 11:59 16 92 10/15/18 11:46 86 163/89 H (1) Sepsis Sepsis type: sepsis due to unspecified organism Qualified Code(s): A41.9 - Sepsis, unspecified organism (2) Pneumonia Laterality: left Lung location: lower lobe of lung Pneumonia type: due to unspecified organism Qualified Code(s): J18.1 - Lobar pneumonia, unspecified organism (3) Coronary artery disease Coronary Disease-Associated Artery/Lesion type: [place] artery [place] vs. transplanted heart: [place] heart Associated angina: without angina Qualified Code(s): I25.10 - Atherosclerotic heart disease of [place] coronary artery without angina pectoris (4) Hypertension Hypertension type: unspecified Qualified Code(s): I10 - Essential (primary) hypertension (5) COPD (chronic obstructive pulmonary disease) COPD type: unspecified COPD Qualified Code(s): J44.9 - Chronic obstructive pulmonary disease, unspecified
[2018-10-16] MEDS: METOPROLOL TARTRATE 50 MG TAB PO SCH ×3 (05:59→20:48)
[2018-10-16 06:08] LABS: Hematocrit (blood only) 43.1 % (42-52); Hemoglobin 14.2 g/dL (14.0-18.0); Mean Corpuscular Hgb Conc 32.9 g/dL (32-36); Mean Corpuscular Volume 93.1 fL (80-100); Mean Platelet Volume 9.4 fL (7.4-10.4); Platelet Count 138 K/uL (130-400); RDW Coefficient of Variation 13.8 % (11.5-14.5); Red Blood Count 4.63 M/uL (4.7-6.1)
[2018-10-16 06:42] LABS: BUN Creatinine Ratio 12.9 (10-20); Calcium 9.3 mg/dl (8.5-10.1); Creatinine Clr Calc Pharmacy 55.9 ml/min; Est GFR (African American) 58.6; Est GFR (Non-African American) 50.5; Potassium 4.1 mmol/L (3.5-5.1)
[2018-10-16] MEDS: OXYBUTYNIN CHLORIDE 5 MG TAB PO SCH ×3 (07:59→20:47)
[2018-10-16] MEDS: FAMOTIDINE 20 MG TAB PO SCH ×2 (08:00→20:48)
[2018-10-16] MEDS: HydrALAZINE 10 MG TAB PO SCH ×3 (08:00→20:46)
[2018-10-16] MEDS: PRAVASTATIN SOD 40 MG TAB PO SCH (08:00)
[2018-10-16] MEDS: MULTIVITAMIN TAB PO SCH (08:00)
[2018-10-16] MEDS: CYANOCOBALAMIN (VITAMIN B-12) 100 MCG TABLET PO SCH (08:01)
[2018-10-16] MEDS: AMLODIPINE BESYLATE 5 MG TAB PO SCH (08:01)
[2018-10-16] MEDS: ALLOPURINOL 100 MG TAB PO SCH (08:01)
[2018-10-16] MEDS: ERTAPENEM SODIUM 1,000 MG in SODIUM CHLORIDE 0.9% 50 ML IV SCH (12:06)
--- NOTE | 2018-10-16 17:10 | Hospitalist Progress Note ---
Date of Service October 16, 2018 Assessment & Plan (1) Sepsis: resolved clinically stable , afebrile , vitals stable , lactic acid level normalized with IV hydration on admission :met criteria for sepsis on admission ;presented with fever T 39.2 /tachycardia HR 105/POC Lactic acid 1.3/leukocytosis WBC 15K Due to UTI -E coli ESBL appreciate input from ID recommend to cont with IV Ertapenem for total 14 days will order PICC line vs USG guided IV access ( will be adequate for 2 weeks of home IV Abx ) social service consulted to arrange home IV abx therapy Only catheter discontinued as per urology recommendation (2) Pyelonephritis: Patient presented with dysuria fever and weakness x1 H/O Hospitalization 08/2018 ESBL + E. coli UTI. Was initially treated with ceftriaxone and transitioned to ertapenem x7 days. UA: 2+ protein, 3+ blood, + nitrite, 3+ leukocyte esterase, > 30 WBC and RBC, 2+ bacteria CT abdomen/pelvis: 1. No renal or ureteral stones. Mild fullness within the right renal collecting system without ginger hydronephrosis. 2. Progressive right perinephric edema/fat stranding as well as urothelial thickening within the right renal pelvis and right ureter. This favors a pyelitis/pyelonephritis. 3. There is also mild thickening and fat stranding within the bladder wall likely representing a cystitis. Recommend correlation with urinalysis. cont Tx with IV Invanz urine culture + ESBL Ecoli ID consulted , appreciate input recommend total 14 days tx (3) Pneumonia: no evidence of pneumonia , possible atelactasis ordered incentive spirometry CXR: Left basilar opacity, in part due to prominent epicardial fat pad. Superimposed consolidation cannot be excluded. -d/c Doxycycline no complain of SOB or cough - CT Chest: 1. Emphysema. 2. There is an abrupt cut off within the proximal segmental bronchi of the right middle lobe with a hypoplastic versus collapsed right middle lobe. If the patient has not had prior surgery within the right middle lobe, then consider follow-up bronchoscopy for further evaluation. 3. Nodular densities described within the right lung base on the prior study represent sclerotic foci within the right anterior fifth rib with the largest measuring 1.2 cm. These are indeterminate but could represent bone islands in the absence of a known malignancy. 4. Mild interstitial thickening and small patchy densities within the left lower lobe posteriorly. This favors atelectasis. A low-grade pneumonitis could also have a similar appearance. - RT MIDDLE LUNG COLLAPSE: incidental finding in CT chest pulmonology consulted appreciate input pt had chest tube placement for itatrogenic pneumothorax in 1998/possible residual scar indeterminate 12 mm nodule noted on rt middle lobe , new compared to previous chest xray hx of smoking in past will need diagnostic bronchoscopy with biopsy Discussed with patient's , wants bronchoscopy to be done this hospital admission We will update the pulmonology team Patient will be ordered n.p.o. past midnight on Thursday night for bronchoscopy in a.m. (4) Urinary retention: S/P TURP. Chronic urinary frequency -Davidson cath was placed in ER -Urology consult appreciated no urologic procedure recommended Davidson catheter discontinued out pt follow up with Urology (5) Coronary artery disease: S/P CABG No CP, SOB -metoprolol, amlodipine, statin -We will hold Plavix and aspirin for possible bronchoscopy biopsy on Thursday (6) Chronic systolic CHF (congestive heart failure): LVEF 25%. Underlying ishcemic +/- hypertensive heart disease. MARTINA / ARB contraindicated in light of CKD. Continue metoprolol, hydralazine. 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 Baseline: 1.4-1.6 -monitor renal functions -avoid nephrotoxic agents when possible (9) Cerebrovascular disease: H/O Multiple ischemic strokes. H/O parenchymal hemorrhage perioperatively during carotid surgery. Has residual aphasia At baseline Hold Plavix for bronchoscopic biopsy, On pravastatin, BP meds (10) Hypertension: Stable. BP: 141/79, 155/83 -Continue metoprolol, amlodipine, hydralazine with holding parameters (11) COPD (chronic obstructive pulmonary disease): No reported cough or SOB -incentive spirometry (12) Gout: -Continue allopurinol DVT Prophylaxis -SCDs Full Code as per discussion with pt and pt's Follows with Dr Syed for routine care Plan for bronchoscopy on Thursday Possible return home with home health on Thursday with arrangement of home IV antibiotics, plan of care discussed with patient's , in agreement with above Subjective Patient reports a feeling fine, no complaint, no fever or chills, appetite fair, Physical Exam Constitutional: WD/WN, vitals as above + obese and comfortable; no acute distress Eyes: PERRL, conjunctivae normal, anicteric sclerae no nystagmus ENMT: external ear and nose normal, oropharynx normal Ears: no hearing impairment Neck: trachea midline, no thyromegaly trachea midline; neck nontender Respiratory: normal respiratory effort, lungs clear to auscultation normal percussion; no respiratory distress and does not use accessory muscles Cardiovascular: RRR, no murmur, no edema Rate/Rhythm: regular rate and regular rhythm Heart Sounds: normal S1 and normal S2 Vessels: normal peripheral pulses; no JVD Chest (Breasts): Chest: no mass Gastrointestinal (Abdomen): normal bowel sounds, soft, nontender, no hepatosplenomegaly Inspection/Auscultation: normal bowel sounds Percussion/Palpation: abdomen soft; abdomen nontender and no hepatosplenomegaly Musculoskeletal: no cyanosis or clubbing, extremities motor strength 5/5 Head/Neck/Chest: normocephalic and head atraumatic Spine: thoracic spine normal to inspection and lumbar spine normal to inspection; no cervical spinal tenderness Skin: no rashes, warm and dry no rashes, no lesions and no ulcers Neurologic: patellar DTR's 2+ bilat, sensation intact and PERRL, EOMI, accommodation nl, no face palsy, no dysarthria awake; no focal motor deficits and not confused Psychiatric: A+Ox3, euthymic affect Orientation: alert, oriented x 3 and cooperative Eye Contact: good eye contact Speech: no pressured speech Affect: + flat affect Genitourinary: no CVA tenderness Lymphatic: no cervical or axillary lymphadenopathy no lymphedema and no inguinal lymphadenopathy Results & Data Vital Signs (Past 12 Hours) Vital Signs Temp Pulse Resp BP Pulse Ox 10/16/18 15:33 36.6 C 67 20 127/78 91 10/16/18 07:21 36.8 C 90 20 161/75 H 90 10/16/18 05:58 91 H 165/90 H (1) Coronary artery disease Associated angina: without angina Coronary Disease-Associated Artery/Lesion type: [place] artery [place] vs. transplanted heart: [place] heart Qualified Code(s): I25.10 - Atherosclerotic heart disease of [place] coronary artery without angina pectoris (2) Sepsis Sepsis type: sepsis due to unspecified organism Qualified Code(s): A41.9 - Sepsis, unspecified organism (3) COPD (chronic obstructive pulmonary disease) COPD type: unspecified COPD Qualified Code(s): J44.9 - Chronic obstructive pulmonary disease, unspecified (4) Hypertension Hypertension type: unspecified Qualified Code(s): I10 - Essential (primary) hypertension (5) Pneumonia Laterality: left Lung location: lower lobe of lung Pneumonia type: due to unspecified organism Qualified Code(s): J18.1 - Lobar pneumonia, unspecified organism
[2018-10-16] MEDS: TRAZODONE HCL 50 MG TAB PO SCH (20:47)
[2018-10-17] MEDS: METOPROLOL TARTRATE 50 MG TAB PO SCH ×3 (05:56→21:48)
[2018-10-17] MEDS: ALLOPURINOL 100 MG TAB PO SCH (08:48)
[2018-10-17] MEDS: AMLODIPINE BESYLATE 5 MG TAB PO SCH (08:48)
[2018-10-17] MEDS: HydrALAZINE 10 MG TAB PO SCH ×3 (08:49→21:48)
[2018-10-17] MEDS: OXYBUTYNIN CHLORIDE 5 MG TAB PO SCH ×3 (08:49→21:48)
[2018-10-17] MEDS: MULTIVITAMIN TAB PO SCH (08:49)
[2018-10-17] MEDS: CYANOCOBALAMIN (VITAMIN B-12) 100 MCG TABLET PO SCH (08:49)
[2018-10-17] MEDS: PRAVASTATIN SOD 40 MG TAB PO SCH (08:49)
[2018-10-17] MEDS: FAMOTIDINE 20 MG TAB PO SCH ×2 (08:50→21:48)
[2018-10-17 08:51] LABS: BUN Creatinine Ratio 15.2 (10-20); Calcium 9.6 mg/dl (8.5-10.1); Creatinine Clr Calc Pharmacy 54.7 ml/min; Est GFR (African American) 57.1; Est GFR (Non-African American) 49.3
[2018-10-17] MEDS: ERTAPENEM SODIUM 1,000 MG in SODIUM CHLORIDE 0.9% 50 ML IV SCH (14:31)
--- NOTE | 2018-10-17 15:38 | Pulmonology Progress Note ---
Date of Service This is a delayed entry October 15, 2018 Assessment & Plan (1) Pulmonary nodule: The nodule has been present on CXR since 2014 per records. I have no prior CT scans Will be kept NPO for bronch inspection. This may be a carcinoid tumor or a granuloma given the slow growth and it may be endobronchial Defer non pulmonary management to primary team Subjective I I went to see the patients after our discussion yesterday (10/14/2018) but I missed her since I was busy in the ICU. The patient expressed he does not want bronchoscopy because he feels fine. He is breathing on room air and lying flat without distress. He said he was in for infection in the kidneys. I explained that there is a nodule noted on CXR at least since [address] scan it seems it is causing atelectasis. He did not want any part of that. I informed Dr. Barajas his hospitalist. She apprently spoke to his and on 10/16 she called me saying the convinced the patient to have the bronch and he will be kept NPO the night of 10/17 for possible bronch on 10/18 Physical Exam Constitutional: WD/WN, vitals as above Eyes: PERRL, conjunctivae normal, anicteric sclerae ENMT: external ear and nose normal, oropharynx normal Neck: trachea midline, no thyromegaly Respiratory: normal respiratory effort, lungs clear to auscultation Cardiovascular: Rate/Rhythm: regular rate and regular rhythm Heart Sounds: normal S1 and normal S2 Musculoskeletal: no cyanosis or clubbing, extremities motor strength 5/5 Results & Data Vital Signs (Past 12 Hours) Vital Signs Temp Pulse Resp BP BP Pulse Ox 10/17/18 07:09 36.4 C L 93 H 20 139/85 93 10/17/18 05:54 102 H 118/72
--- NOTE | 2018-10-17 16:24 | Hospitalist Progress Note ---
Date of Service October 17, 2018 Assessment & Plan (1) Sepsis: On admission :met criteria for sepsis on admission ;presented with fever T 39.2 /tachycardia HR 105/POC Lactic acid 1.3/leukocytosis WBC 15K Due to UTI -E coli ESBL Appreciate input from ID Recommend to cont with IV Ertapenem for total 14 days Will order PICC line vs USG guided IV access ( will be adequate for 2 weeks of home IV Abx ) Clinically much improved now Continue current management (2) Pyelonephritis: Patient presented with dysuria fever and weakness x1 H/O Hospitalization 08/2018 ESBL + E. coli UTI. Was initially treated with ceftriaxone and transitioned to ertapenem x7 days. UA: 2+ protein, 3+ blood, + nitrite, 3+ leukocyte esterase, > 30 WBC and RBC, 2+ bacteria CT abdomen/pelvis: 1. No renal or ureteral stones. Mild fullness within the right renal collecting system without ginger hydronephrosis. 2. Progressive right perinephric edema/fat stranding as well as urothelial thickening within the right renal pelvis and right ureter. This favors a pyelitis/pyelonephritis. 3. There is also mild thickening and fat stranding within the bladder wall likely representing a cystitis. Recommend correlation with urinalysis. Cont Tx with IV Invanz urine culture + ESBL Ecoli ID consulted , appreciate input recommend total 14 days tx (3) Pneumonia: No evidence of pneumonia , possible atelactasis Incentive spirometry CXR: Left basilar opacity, in part due to prominent epicardial fat pad. Superimposed consolidation cannot be excluded. -d/c Doxycycline no complain of SOB or cough CT Chest:1. Emphysema. 2. There is an abrupt cut off within the proximal segmental bronchi of the right middle lobe with a hypoplastic versus collapsed right middle lobe. If the patient has not had prior surgery within the right middle lobe, then consider follow-up bronchoscopy for further evaluation. 3. Nodular densities described within the right lung base on the prior study represent sclerotic foci within the right anterior fifth rib with the largest measuring 1.2 cm. These are indeterminate but could represent bone islands in the absence of a known malignancy. 4. Mild interstitial thickening and small patchy densities within the left lower lobe posteriorly. This favors atelectasis. A low-grade pneumonitis could also have a similar appearance. RT MIDDLE LUNG COLLAPSE: Incidental finding in CT chest Will have bronchoscopic evaluation tomorrow pulmonology consulted appreciate input pt had chest tube placement for itatrogenic pneumothorax in 1998/possible residual scar indeterminate 12 mm nodule noted on rt middle lobe , new compared to previous chest xray hx of smoking in past will need diagnostic bronchoscopy with biopsy Discussed with patient's , wants bronchoscopy to be done this hospital admission We will update the pulmonology team Patient will be ordered n.p.o. past midnight on Thursday night for bronchoscopy in a.m. (4) Urinary retention: S/P TURP. Chronic urinary frequency -Davidson cath was placed in ER -Urology consult appreciated Davidson catheter discontinued and the patient is making out urine Out pt follow up with Urology (5) Coronary artery disease: S/P CABG No CP, SOB -metoprolol, amlodipine, statin -We will hold Plavix and aspirin for possible bronchoscopy biopsy on Thursday (6) Chronic systolic CHF (congestive heart failure): LVEF 25%. Underlying ishcemic +/- hypertensive heart disease. MARTINA / ARB contraindicated in light of CKD. Continue metoprolol, hydralazine. 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 Baseline: 1.4-1.6 -monitor renal functions -avoid nephrotoxic agents when possible (9) Cerebrovascular disease: H/O Multiple ischemic strokes. H/O parenchymal hemorrhage perioperatively during carotid surgery. Has residual aphasia At baseline Hold Plavix for bronchoscopic biopsy, On pravastatin, BP meds (10) Hypertension: Stable. BP: 141/79, 155/83 -Continue metoprolol, amlodipine, hydralazine with holding parameters (11) COPD (chronic obstructive pulmonary disease): No reported cough or SOB -incentive spirometry (12) Gout: -Continue allopurinol DVT Prophylaxis -SCDs Full Code as per discussion with pt and pt's Follows with Dr Syed for routine care Plan for bronchoscopy on Thursday Possible return home with home health on Thursday with arrangement of home IV antibiotics, plan of care discussed with patient's , in agreement with above Subjective 10/17 Patient was seen and examined in medical floor Pt is 68 y/o M with PMH of ischemic heart disease, systolic CHF, CVA, solitary kidney, CKD III, HTN, dyslipidemia, COPD, urinary retention, gout presented to ER with complaint of dysuria and fever. Denies any complaints today and is out of bed when a chair Davidson catheter discontinued and making out urine Awaiting bronchoscopy tomorrow Review of Systems Review of Systems: All systems reviewed and are unremarkable except as noted below Respiratory: Minimal discomfort at rest Gastrointestinal: Abdominal distention seems to be normal for him and denies any symptoms Physical Exam Physical Exam: No apparent distress at rest Constitutional: WD/WN, vitals as above + obese and comfortable; no acute distress Eyes: PERRL, conjunctivae normal, anicteric sclerae ENMT: external ear and nose normal, oropharynx normal Neck: trachea midline, no thyromegaly Respiratory: normal respiratory effort Auscultation: + diminished lung sounds; no crackles and no wheezes Cardiovascular: RRR, no murmur, no edema Vessels: normal peripheral pulses Chest (Breasts): Chest: no mass Gastrointestinal (Abdomen): Inspection/Auscultation: abdomen normal to inspection and normal bowel sounds Percussion/Palpation: abdomen soft; abdomen nontender Musculoskeletal: no cyanosis or clubbing, extremities motor strength 5/5 Head/Neck/Chest: normocephalic and head atraumatic Spine: thoracic spine normal to inspection and lumbar spine normal to inspection; no cervical spinal tenderness Skin: no rashes, warm and dry no rashes, no lesions and no ulcers Neurologic: PERRL, EOMI, accommodation nl, no face palsy, no dysarthria Psychiatric: A+Ox3, euthymic affect Orientation: alert, oriented x 3 and cooperative Eye Contact: good eye contact Speech: no pressured speech Affect: + flat affect Genitourinary: no CVA tenderness Lymphatic: no cervical or axillary lymphadenopathy no lymphedema and no inguinal lymphadenopathy Results & Data Vital Signs (Past 12 Hours) Vital Signs Temp Pulse Resp BP BP Pulse Ox 10/17/18 15:31 36.6 C 63 18 147/79 H 91 10/17/18 07:09 36.4 C L 93 H 20 139/85 93 10/17/18 05:54 102 H 118/72 Laboratory Results [facility] 10/17/18 10/17/18 08:05 08:59 Sodium 140 Potassium 4.0 Chloride 106 Carbon Dioxide 29 BUN 22 H Creatinine 1.43 H Glucose 107 H Calcium 9.6 Medications Administered Current Inpatient Medications Acetaminophen (Tylenol) 650 mg PO Q4H PRN PRN Reason: Pain or Fever Stop: 11/12/18 22:34 Last Admin: 10/15/18 00:21 Dose: 650 mg Documented by: Allopurinol (Zyloprim) 100 mg PO DAILY NATALYA Stop: 11/13/18 08:59 Last Admin: 10/17/18 08:48 Dose: 100 mg Documented by: Amlodipine Besylate (Norvasc) 10 mg PO DAILY NATALYA Stop: 11/13/18 08:59 Last Admin: 10/17/18 08:48 Dose: 10 mg Documented by: Cyanocobalamin (Vitamin B-12) 100 mcg PO DAILY NATALYA Stop: 11/13/18 08:59 Last Admin: 10/17/18 08:49 Dose: 100 mcg Documented by: Diclofenac Sodium (Voltaren 1% Top) 1 appln EXT BID PRN PRN Reason: right foot Stop: 11/12/18 22:34 Famotidine (Pepcid) 20 mg PO BID [facility] Stop: 11/12/18 22:34 Last Admin: 10/17/18 08:50 Dose: 20 mg Documented by: Hydralazine HCl (Apresoline) 10 mg PO TID [facility] Stop: 11/12/18 22:34 Last Admin: 10/17/18 13:15 Dose: 10 mg Documented by: Ertapenem 1,000 mg/ Sodium (Chloride) 60 mls @ 100 mls/hr IV Q24H [facility]AL[facility] Stop: 10/25/18 11:29 Last Infusion: 10/17/18 16:01 Dose: Infused Documented by: Metoprolol Tartrate (Lopressor) 50 mg PO Q8 [facility] Stop: 11/12/18 22:34 Last Admin: 10/17/18 13:15 Dose: 50 mg Documented by: Multivitamins (Multivitamin Tab) 1 tab PO QAM [facility] Stop: 11/13/18 08:59 Last Admin: 10/17/18 08:49 Dose: 1 tab Documented by: Oxybutynin Chloride (Ditropan) 5 mg PO TID [facility] Stop: 11/14/18 13:59 Last Admin: 10/17/18 13:15 Dose: 5 mg Documented by: Pravastatin Sodium (Pravachol) 40 mg PO DAILY [facility] Stop: 11/13/18 08:59 Last Admin: 10/17/18 08:49 Dose: 40 mg Documented by: Sennosides (Senokot) 8.6 mg PO BID PRN PRN Reason: Constipation Stop: 11/12/18 22:34 Trazodone HCl (Desyrel) 50 mg PO HS [facility] Stop: 11/12/18 22:34 Last Admin: 10/16/18 20:47 Dose: 50 mg Documented by: (1) Sepsis Sepsis type: sepsis due to unspecified organism Qualified Code(s): A41.9 - Sepsis, unspecified organism (2) Pneumonia Laterality: left Lung location: lower lobe of lung Pneumonia type: due to unspecified organism Qualified Code(s): J18.1 - Lobar pneumonia, unspecified organism (3) Coronary artery disease Coronary Disease-Associated Artery/Lesion type: [place] artery [place] vs. transplanted heart: [place] heart Associated angina: without angina Qualified Code(s): I25.10 - Atherosclerotic heart disease of [place] coronary artery without angina pectoris (4) Hypertension Hypertension type: unspecified Qualified Code(s): I10 - Essential (primary) hypertension (5) COPD (chronic obstructive pulmonary disease) COPD type: unspecified COPD Qualified Code(s): J44.9 - Chronic obstructive pulmonary disease, unspecified
[2018-10-17] MEDS: HEPARIN SOD 5,000 UNIT/0.5 ML VIAL SQ SCH (21:44)
[2018-10-17] MEDS: TRAZODONE HCL 50 MG TAB PO SCH (21:48)
[2018-10-18] MEDS: METOPROLOL TARTRATE 50 MG TAB PO SCH ×3 (06:06→22:25)
[2018-10-18] MEDS: HEPARIN SOD 5,000 UNIT/0.5 ML VIAL SQ SCH ×3 (06:07→22:26)
[2018-10-18 07:53] LABS: Creatinine Clr Calc Pharmacy 51.1 ml/min; Est GFR (African American) 52.6; Est GFR (Non-African American) 45.4
[2018-10-18] MEDS: ALLOPURINOL 100 MG TAB PO SCH (08:08)
[2018-10-18] MEDS: OXYBUTYNIN CHLORIDE 5 MG TAB PO SCH ×3 (08:08→22:23)
[2018-10-18] MEDS: FAMOTIDINE 20 MG TAB PO SCH ×2 (08:08→22:24)
[2018-10-18] MEDS: AMLODIPINE BESYLATE 5 MG TAB PO SCH (08:08)
[2018-10-18] MEDS: HydrALAZINE 10 MG TAB PO SCH ×3 (08:09→22:22)
[2018-10-18] MEDS: PRAVASTATIN SOD 40 MG TAB PO SCH (08:09)
[2018-10-18] MEDS: CYANOCOBALAMIN (VITAMIN B-12) 100 MCG TABLET PO SCH (08:09)
[2018-10-18] MEDS: MULTIVITAMIN TAB PO SCH (08:09)
[2018-10-18] MEDS: ERTAPENEM SODIUM 1,000 MG in SODIUM CHLORIDE 0.9% 50 ML IV SCH (11:52)
--- NOTE | 2018-10-18 15:31 | Progress Note ---
DATE: 10/18/2018 PULMONARY PROGRESS NOTE Chart reviewed, the patient examined. SUBJECTIVE: The patient was kept n.p.o. today for possible bronchoscopy. I was unable to place him on this schedule due to availability of the bronchoscopy suite, but can do so for tomorrow. The patient feels fine and seems to have very little comprehension of the procedure. Dr. Alfaro/pulmonary medicine/intensive care saw patient in consultation on 10/15 and thought the patient would be a candidate for bronchoscopy as there is a slow growing pulmonary nodules since at least 2014 and there may be some distal atelectasis. He was concerned about an endobronchial carcinoid or slow growing neoplasm. OBJECTIVE: CURRENT VITAL SIGNS: Blood pressure 123/71, pulse 72 and regular, respiratory rate 20, temperature 36.9, O2 sat 91% on room air. SKIN: Without lesion. HEENT: Atraumatic, normocephalic, PERRLA, EOMI. Conjunctivae pale. Sclerae nonicteric. Fundi poorly visualized. NECK: Neck veins are not distended at 45 degrees. No evidence of lymphadenopathy in the supra or infraclavicular areas. LUNGS: Decreased breath sounds right axillary area. Otherwise distant P and A. CARDIAC: Regular rate and rhythm. No murmurs or gallops. ABDOMEN: Soft, protuberant. No evidence of hepatosplenomegaly. EXTREMITIES: No pedal edema, clubbing or cyanosis. NEUROLOGICAL: Intact. No lateralizing signs. LABORATORY DATA: CT scan was reviewed from 10/13/2018 with no comparison to previous films. There is evidence for emphysema and an abrupt cut-off within the proximal segmental bronchi of the right middle lobe with a hyperplastic versus collapse right middle lobe. Nodular densities within the right lung base are noted with sclerotic foci within the right anterior 5th rib, largest measuring 1.2 cm. It could represent bone islands in the absence of a known malignancy. Some interstitial thickening and patchy densities are seen in the left lower lobe possibly due to a pneumonitis. White count has normalized. H and H 14 and 43. His white count was close to 16,000 on admission. PT, PTT, INR within normal limits. Creatinine 1.5. OVERALL ASSESSMENT: A 68-year-old white male admitted with acute urinary tract infection and pyelonephritis, currently on IV ertapenem and committed to a 14-day course because of gram-negative sepsis. The patient will undergo bronchoscopic evaluation tomorrow and more definitive plan will be detailed once the examination has been completed.
--- NOTE | 2018-10-18 17:17 | Hospitalist Progress Note ---
Date of Service October 18, 2018 Assessment & Plan (1) Sepsis: On admission :met criteria for sepsis on admission ;presented with fever T 39.2 /tachycardia HR 105/POC Lactic acid 1.3/leukocytosis WBC 15K Due to UTI -E coli ESBL Appreciate input from ID Recommend to cont with IV Ertapenem for total 14 days Will order PICC line vs USG guided IV access ( will be adequate for 2 weeks of home IV Abx ) No symptoms and/or discomfort (2) Pyelonephritis: Patient presented with dysuria fever and weakness x1 H/O Hospitalization 08/2018 ESBL + E. coli UTI. Was initially treated with ceftriaxone and transitioned to ertapenem x7 days. UA: 2+ protein, 3+ blood, + nitrite, 3+ leukocyte esterase, > 30 WBC and RBC, 2+ bacteria CT abdomen/pelvis: 1. No renal or ureteral stones. Mild fullness within the right renal collecting system without ginger hydronephrosis. 2. Progressive right perinephric edema/fat stranding as well as urothelial thickening within the right renal pelvis and right ureter. This favors a pyelitis/pyelonephritis. 3. There is also mild thickening and fat stranding within the bladder wall likely representing a cystitis. Recommend correlation with urinalysis. Cont Tx with IV Invanz urine culture + ESBL Ecoli ID consulted , appreciate input recommend total 14 days tx With a PICC line and to antibiotic to be continued for 14 days in total (3) Pneumonia: No evidence of pneumonia , possible atelactasis Incentive spirometry CXR: Left basilar opacity, in part due to prominent epicardial fat pad. Superimposed consolidation cannot be excluded. -d/c Doxycycline no complain of SOB or cough CT Chest:1. Emphysema. 2. There is an abrupt cut off within the proximal segmental bronchi of the right middle lobe with a hypoplastic versus collapsed right middle lobe. If the patient has not had prior surgery within the right middle lobe, then consider follow-up bronchoscopy for further evaluation. 3. Nodular densities described within the right lung base on the prior study represent sclerotic foci within the right anterior fifth rib with the largest measuring 1.2 cm. These are indeterminate but could represent bone islands in the absence of a known malignancy. 4. Mild interstitial thickening and small patchy densities within the left lower lobe posteriorly. This favors atelectasis. A low-grade pneumonitis could also have a similar appearance. RT MIDDLE LUNG COLLAPSE: Incidental finding in CT chest Will have bronchoscopic evaluation tomorrow Appreciate pulmonary input and recommendation for bronchoscopy tomorrow morning pulmonology consulted appreciate input pt had chest tube placement for itatrogenic pneumothorax in 1998/possible residual scar indeterminate 12 mm nodule noted on rt middle lobe , new compared to previous c hest xray hx of smoking in past will need diagnostic bronchoscopy with biopsy Discussed with patient's , wants bronchoscopy to be done this hospital admission We will update the pulmonology team Patient will be ordered n.p.o. past midnight on Thursday night for bronchoscopy in a.m. (4) Urinary retention: S/P TURP. Chronic urinary frequency -Davidson cath was placed in ER -Urology consult appreciated Davidson catheter discontinued and the patient is making out urine Out pt follow up with Urology Has been making out urine (5) Coronary artery disease: S/P CABG No CP, SOB -metoprolol, amlodipine, statin -We will hold Plavix and aspirin for possible bronchoscopy biopsy on Thursday (6) Chronic systolic CHF (congestive heart failure): LVEF 25%. Underlying ishcemic +/- hypertensive heart disease. MARTINA / ARB contraindicated in light of CKD. Continue metoprolol, hydralazine. 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 Baseline: 1.4-1.6 -monitor renal functions -avoid nephrotoxic agents when possible (9) Cerebrovascular disease: H/O Multiple ischemic strokes. H/O parenchymal hemorrhage perioperatively during carotid surgery. Has residual aphasia At baseline Hold Plavix for bronchoscopic biopsy, On pravastatin, BP meds (10) Hypertension: Stable. BP: 141/79, 155/83 -Continue metoprolol, amlodipine, hydralazine with holding parameters (11) COPD (chronic obstructive pulmonary disease): No reported cough or SOB -incentive spirometry (12) Gout: -Continue allopurinol DVT Prophylaxis -SCDs Full Code as per discussion with pt and pt's Follows with Dr Syed for routine care Plan for bronchoscopy on Thursday Possible return home with home health on Thursday with arrangement of home IV antibiotics, plan of care discussed with patient's , in agreement with above Subjective 6/2 Patient was seen and examined in medical floor Pt is 68 y/o M with PMH of ischemic heart disease, systolic CHF, CVA, solitary kidney, CKD III, HTN, dyslipidemia, COPD, urinary retention, gout presented to ER with complaint of dysuria and fever. Denies any complaints today and is out of bed when a chair Davidson catheter discontinued and making out urine Awaiting bronchoscopy tomorrow 10/18 The patient was seen and examined in the medical floor He denies any complaints No dysuria, no abdominal pain nausea or vomiting, no chest pain palpitation and no shortness of breath He has been waiting for bronchoscopy Review of Systems Review of Systems: All systems reviewed and are unremarkable except as noted below Respiratory: Minimal discomfort at rest Gastrointestinal: Abdominal distention seems to be normal for him and denies any symptoms Physical Exam Physical Exam: No apparent distress at rest. Sitting on a chair without any shortness of breath Constitutional: WD/WN, vitals as above + obese and comfortable; no acute distress Eyes: PERRL, conjunctivae normal, anicteric sclerae ENMT: external ear and nose normal, oropharynx normal Neck: trachea midline, no thyromegaly Respiratory: normal respiratory effort Auscultation: + diminished lung sounds; no crackles and no wheezes Cardiovascular: RRR, no murmur, no edema Vessels: normal peripheral pulses Chest (Breasts): Chest: no mass Gastrointestinal (Abdomen): Inspection/Auscultation: + abdomen distended and normal bowel sounds Percussion/Palpation: abdomen soft; abdomen nontender and no guarding Musculoskeletal: no cyanosis or clubbing, extremities motor strength 5/5 Head/Neck/Chest: normocephalic and head atraumatic Spine: thoracic spine normal to inspection and lumbar spine normal to inspection; no cervical spinal tenderness Skin: no rashes, warm and dry no rashes, no lesions and no ulcers Neurologic: PERRL, EOMI, accommodation nl, no face palsy, no dysarthria Psychiatric: A+Ox3, euthymic affect Orientation: alert, oriented x 3 and cooperative Eye Contact: good eye contact Speech: no pressured speech Affect: + flat affect Genitourinary: no CVA tenderness Lymphatic: no cervical or axillary lymphadenopathy no lymphedema and no inguinal lymphadenopathy Results & Data Vital Signs (Past 12 Hours) Vital Signs Temp Pulse Resp BP Pulse Ox 10/18/18 15:52 36.5 C 85 20 152/72 H 90 10/18/18 14:44 94 H 149/89 H 10/18/18 07:11 36.9 C 72 20 123/71 91 Laboratory Results BMP 10/18/18 06:55 Creatinine 1.53 H Medications Administered Current Inpatient Medications Acetaminophen (Tylenol) 650 mg PO Q4H PRN PRN Reason: Pain or Fever Stop: 11/12/18 22:34 Last Admin: 10/15/18 00:21 Dose: 650 mg Documented by: Allopurinol (Zyloprim) 100 mg PO DAILY [facility] Stop: 11/13/18 08:59 Last Admin: 10/18/18 08:08 Dose: 100 mg Documented by: Amlodipine Besylate (Norvasc) 10 mg PO DAILY [facility] Stop: 11/13/18 08:59 Last Admin: 10/18/18 08:08 Dose: 10 mg Documented by: Cyanocobalamin (Vitamin B-12) 100 mcg PO DAILY [facility]AL[facility] Stop: 11/13/18 08:59 Last Admin: 10/18/18 08:09 Dose: 100 mcg Documented by: Diclofenac Sodium (Voltaren 1% Top) 1 appln EXT BID PRN PRN Reason: right foot Stop: 11/12/18 22:34 Famotidine (Pepcid) 20 mg PO BID [facility] Stop: 11/12/18 22:34 Last Admin: 10/18/18 08:08 Dose: 20 mg Documented by: Heparin Sodium (Porcine) (Heparin Sodium (Porcine)) 5,000 units SQ Q8 [facility]AL[facility] Stop: 11/16/18 21:59 Last Admin: 10/18/18 14:36 Dose: 5,000 units Documented by: Hydralazine HCl (Apresoline) 10 mg PO TID [facility] Stop: 11/12/18 22:34 Last Admin: 10/18/18 14:37 Dose: 10 mg Documented by: Ertapenem 1,000 mg/ Sodium (Chloride) 60 mls @ 100 mls/hr IV Q24H [facility] Stop: 10/25/18 11:29 Last Infusion: 10/18/18 13:03 Dose: Infused Documented by: Metoprolol Tartrate (Lopressor) 50 mg PO Q8 [facility] Stop: 11/12/18 22:34 Last Admin: 10/18/18 14:37 Dose: 50 mg Documented by: Multivitamins (Multivitamin Tab) 1 tab PO QAM [facility] Stop: 11/13/18 08:59 Last Admin: 10/18/18 08:09 Dose: 1 tab Documented by: Oxybutynin Chloride (Ditropan) 5 mg PO TID [facility] Stop: 11/14/18 13:59 Last Admin: 10/18/18 14:36 Dose: 5 mg Documented by: Pravastatin Sodium (Pravachol) 40 mg PO DAILY [facility] Stop: 11/13/18 08:59 Last Admin: 10/18/18 08:09 Dose: 40 mg Documented by: Sennosides (Senokot) 8.6 mg PO BID PRN PRN Reason: Constipation Stop: 11/12/18 22:34 Trazodone HCl (Desyrel) 50 mg PO HS [facility] Stop: 11/12/18 22:34 Last Admin: 10/17/18 21:48 Dose: 50 mg Documented by: (1) Sepsis Sepsis type: sepsis due to unspecified organism Qualified Code(s): A41.9 - Sepsis, unspecified organism (2) Pneumonia Laterality: left Lung location: lower lobe of lung Pneumonia type: due to unspecified organism Qualified Code(s): J18.1 - Lobar pneumonia, unspecified organism (3) Coronary artery disease Coronary Disease-Associated Artery/Lesion type: [place] artery [place] vs. transplanted heart: [place] heart Associated angina: without angina Qualified Code(s): I25.10 - Atherosclerotic heart disease of [place] coronary artery without angina pectoris (4) Hypertension Hypertension type: unspecified Qualified Code(s): I10 - Essential (primary) hypertension (5) COPD (chronic obstructive pulmonary disease) COPD type: unspecified COPD Qualified Code(s): J44.9 - Chronic obstructive pulmonary disease, unspecified
[2018-10-18] MEDS: TRAZODONE HCL 50 MG TAB PO SCH (22:23)
[2018-10-19] MEDS: HEPARIN SOD 5,000 UNIT/0.5 ML VIAL SQ SCH ×3 (05:46→21:25)
--- NOTE | 2018-10-19 08:43 | History & Physical Bridge Note ---
Date of Service October 19, 2018 History & Physical Bridge Note I have examined the patient, reviewed the History & Physical and in the interval since the performance of the History & Physical I have noted the following changes of clinical significance: no changes noted
--- NOTE | 2018-10-19 08:44 | Pre Anesthesia Assessment ---
Date of Service October 19, 2018 Pre Sedation Assessment Vital Signs Temp Pulse Resp BP Pulse Ox 10/19/18 08:12 36.3 C L 90 20 144/97 H 92 10/19/18 04:40 36.4 C L 80 20 161/91 H 87 L 10/18/18 22:26 36.6 C 80 20 133/84 91 10/18/18 15:52 36.5 C 85 20 152/72 H 90 10/18/18 14:44 94 H 149/89 H Cardiovascular RRR, no murmur, no edema + peripheral pulses normal Respiratory normal respiratory effort, lungs clear to auscultation Pre-Sedation Airway Assessment Smoking Status: Former smoker Hx Sleep Apnea: No Hx Difficult Intubation: No Short, Thick Neck: Yes Thyromental Distance: > or= 3.5 Finger Breadths Oral Cavity: + WNL Mallampati Class: III ASA: ASA2 Procedure Planning Contraindications for Sedation: none Current Medications Reviewed: Yes Notes The planned sedation has been discussed with the patient. Informed Consent was obtained. I have identified the patient, determined the appropriateness of sedation and have assessed the patient immediately prior to the procedure. All medicine(s) and interventions are by my order.
[2018-10-19] MEDS: METOPROLOL TARTRATE 50 MG TAB PO SCH ×3 (08:50→21:24)
[2018-10-19] MEDS ORDERED: LEVALBUTEROL HCL 1.25 MG/3 ML NEB NEB STA (09:41)
[2018-10-19] MEDS ORDERED: LIDOCAINE HCL 2% (LOCAL) INJ 50 ML VIAL INFIL STA (09:41)
[2018-10-19] MEDS ORDERED: LIDOCAINE HCL VISCOUS SOLN 2% 15 ML UDC MT ONE (09:41)
[2018-10-19] MEDS ORDERED: fentaNYL citrate 100 MCG/2 ML VIAL IV ONE (09:41)
[2018-10-19] MEDS ORDERED: MIDAZOLAM HCL 1 MG/ML 2ML VIAL IV STA (09:41)
[2018-10-19] MEDS ORDERED: OXYMETAZOLINE 0.05% 30 ML BTL ONE (09:41)
[2018-10-19] MEDS ORDERED: LIDOCAINE 4% INH SOLN 4 ML BTL INFIL STA (09:41)
--- NOTE | 2018-10-19 10:22 | Post Anesthesia Assessment ---
Date of Service October 19, 2018 Post Sedation Assessment Vital Signs Temp Pulse Pulse Resp BP Pulse Ox 10/19/18 09:50 90 20 154/90 H 95 10/19/18 09:45 84 18 164/102 H 96 10/19/18 09:40 83 16 169/69 H 96 10/19/18 09:35 83 16 172/102 H 96 10/19/18 09:30 83 16 132/80 96 10/19/18 09:25 97 H 18 156/84 H 97 10/19/18 09:20 97 H 18 163/92 H 97 10/19/18 09:15 77 18 159/89 H 95 10/19/18 08:12 36.3 C L 90 20 144/97 H 92 10/19/18 04:40 36.4 C L 80 20 161/91 H 87 L 10/18/18 22:26 36.6 C 80 20 133/84 91 10/18/18 15:52 36.5 C 85 20 152/72 H 90 10/18/18 14:44 94 H 149/89 H Recovery Score Activity: Moves 4 extremities Respiration: Deep Breath/Cough Circulation: +/-20% PreAnes Value Consciousness: Arouseable (by name) Oxygen Saturation: O2 needed for >90% Post Anesthesia Score: 8 Discharge Sedation Level of Care: Fast Track Phase II Post Sedation Plan On clinical assessment, the patient appears to have tolerated the sedation without complications. Patient is recovering as anticipated. Patient will continue to be monitored by nursing and may be discharged when sedation discharge criteria are met per below protocol. Upon Completions of procedure and additional 15 minutes continue every 5 minute vital signs and the P.A.R. score; then discharge to a Phase I or Fast Track to Phase II per the following guidelines: * Discharge Patient to appropriate Phase II area if PAR is 8 or greater or return to pre- procedure baseline. The post - procedure orders will be as directed. * If PAR score is less than 8 or not return to pre-procedure baseline then patient will follow Phase I monitoring till PAR is reached for Phase II. The Phase I may be done in procedure room or may call to secure a Phase I area. * If naloxone or flumazenil are used for reversal, hold in Phase I for continued monitoring from when last reversal dose was given for a minimum of 60 minutes or longer pending the nurse and/or physician discretion of patient condition before discharge to Phase II. Please call the Sedation Physician to re-evaluate and complete post-note for discharge to Phase II area. Do NOT discharge from procedure sedation or Phase 1 until post- sedation evaluation note is complete by procedure /sedation MD Sedation Discharge Instructions to be given to the patient at discharge to home. Supervising Physician Co-Signing Physician Notes Care coordinated with Ilda Craven PA-C. Agree with above note. Patient seen and examined. Please refer to her notes for full details. Vital signs reviewed. Physical exam: General exam: Alert and oriented. Not in acute distress. CVS: S1 and S2 heard, regular rate and rhythm, no murmurs. RS: Clear to auscultation, no wheezing or crackles. ABD: Soft, bowel sounds present, nontender, no distention. DIRECTOR OF VOCATIONAL TRAINING: Nonfocal. EXT: No edema, no erythema. Labs: Reviewed. Assessment and plan: 68M with hx of recurrent UTI , solitary kidney, copd, presents with dyuria, fever and found to have pyelitis/pyelonephritis and possible pneumonia. RT Pyelitis/pyelonephritis sepsis hx of pseudomonas in the past iv primaxin follow cx consult urology and ID lactic acid normalized on iv fluids close monitor Pneumonia? Ct chest shows right middle lobe collapsed left lower lobe pneumonitis abx as above consulted pulmonary Hx of CHF solitary kidney on fluids will monitor for volume overload. Other diagnosis and plan of care as per []. Federico enriquez MD.
--- NOTE | 2018-10-19 10:23 | Post Operative Brief Note ---
Immediate Post Op Note v1 Date of Surgery October 19, 2018 Pre & Post Diagnosis Operation Date: 10/19/18 09:15 Pre-Op Diagnosis: Right Middle Lobe Collapse, Pulmonary Nodule Post-Op Diagnosis: Right Middle Lobe Collapse, Pulmonary Nodule Procedure Operation Date: 10/19/18 09:15 Actual Procedures p Bronchoscopy Radiology(Bilateral) - Juan Hogue MD Surgeon Juan Hogue MD Scientific Helper none Estimated Blood Loss 0 Findings Consistent with Post-Op Diagnosis RML atelectasis Complications none Disposition Accompanied Patient To Recovery: No Overlapping Procedure I was present for: the critical portions of procedure. I was immediately available: during the entire case. Back up surgeon: was not required during procedure.
[2018-10-19] MEDS: PRAVASTATIN SOD 40 MG TAB PO SCH (12:03)
[2018-10-19] MEDS: HydrALAZINE 10 MG TAB PO SCH ×3 (12:04→21:23)
[2018-10-19] MEDS: MULTIVITAMIN TAB PO SCH (12:05)
[2018-10-19] MEDS: OXYBUTYNIN CHLORIDE 5 MG TAB PO SCH ×3 (12:06→21:23)
[2018-10-19] MEDS: AMLODIPINE BESYLATE 5 MG TAB PO SCH (12:10)
[2018-10-19] MEDS: FAMOTIDINE 20 MG TAB PO SCH ×2 (12:10→21:23)
[2018-10-19] MEDS: ALLOPURINOL 100 MG TAB PO SCH (12:11)
[2018-10-19] MEDS: CYANOCOBALAMIN (VITAMIN B-12) 100 MCG TABLET PO SCH (12:11)
[2018-10-19] MEDS: ERTAPENEM SODIUM 1,000 MG in SODIUM CHLORIDE 0.9% 50 ML IV SCH (12:20)
--- NOTE | 2018-10-19 16:16 | Progress Note ---
DATE: 10/19/2018 PULMONARY MEDICINE PROGRESS NOTE Chart reviewed, the patient examined. SUBJECTIVE: The patient is partially aphasic. Additional history was gleaned not only from the chart, but from discussion with patient's . He did undergo bronchoscopic evaluation this morning and he has a slightly progressive right middle lobe nodule noted, but no endobronchial obstruction was seen except for mucoid impaction. There was some fish mouthing of the medial segment of the right middle lobe which could suggest extrinsic compression. Moderate amount of bleeding was encountered just from instilling saline, so will wait for the culture results. I believe the patient from a pulmonary standpoint can be discharged, although I understand he is on 14 days of IV ertapenem and certainly a PICC line insertion with a treatment as an outpatient could be one consideration. The patient will need to be followed aggressively with close surveillance as an outpatient as well by pulmonary medicine.
--- NOTE | 2018-10-19 18:21 | Hospitalist Progress Note ---
Date of Service October 19, 2018 Assessment & Plan (1) Sepsis: On admission :met criteria for sepsis on admission ;presented with fever T 39.2 /tachycardia HR 105/POC Lactic acid 1.3/leukocytosis WBC 15K Due to UTI -E coli ESBL Appreciate input from ID Recommend to cont with IV Ertapenem for total 14 days Will order PICC line vs USG guided IV access ( will be adequate for 2 weeks of home IV Abx ) No symptoms and/or discomfort Denies any fever no chills and white count is normalized Likely to go home tomorrow (2) Pyelonephritis: Patient presented with dysuria fever and weakness x1 H/O Hospitalization 08/2018 ESBL + E. coli UTI. Was initially treated with ceftriaxone and transitioned to ertapenem x7 days. UA: 2+ protein, 3+ blood, + nitrite, 3+ leukocyte esterase, > 30 WBC and RBC, 2+ bacteria CT abdomen/pelvis: 1. No renal or ureteral stones. Mild fullness within the right renal collecting system without ginger hydronephrosis. 2. Progressive right perinephric edema/fat stranding as well as urothelial thickening within the right renal pelvis and right ureter. This favors a pyelitis/pyelonephritis. 3. There is also mild thickening and fat stranding within the bladder wall likely representing a cystitis. Recommend correlation with urinalysis. Cont Tx with IV Invanz urine culture + ESBL Ecoli ID consulted , appreciate input recommend total 14 days tx With a PICC line and to antibiotic to be continued for 14 days in total (3) Pneumonia: No evidence of pneumonia , possible atelactasis Incentive spirometry CXR: Left basilar opacity, in part due to prominent epicardial fat pad. Superimposed consolidation cannot be excluded. -d/c Doxycycline no complain of SOB or cough CT Chest:1. Emphysema. 2. There is an abrupt cut off within the proximal segmental bronchi of the right middle lobe with a hypoplastic versus collapsed right middle lobe. If the patient has not had prior surgery within the right middle lobe, then consider follow-up bronchoscopy for further evaluation. 3. Nodular densities described within the right lung base on the prior study represent sclerotic foci within the right anterior fifth rib with the largest measuring 1.2 cm. These are indeterminate but could represent bone islands in the absence of a known malignancy. 4. Mild interstitial thickening and small patchy densities within the left lower lobe posteriorly. This favors atelectasis. A low-grade pneumonitis could also have a similar appearance. RT MIDDLE LUNG COLLAPSE: Incidental finding in CT chest Will have bronchoscopic evaluation tomorrow Status post bronchoscopy this morning-showed extrinsic compression of right middle lobe bronchus, bleeding noted, no biopsy taken but cleared up mucus plugging Will observe tonight Likely discharge tomorrow morning Appreciate pulmonary input and recommendation for bronchoscopy tomorrow morning pulmonology consulted appreciate input pt had chest tube placement for itatrogenic pneumothorax in 1998/possible residual scar indeterminate 12 mm nodule noted on rt middle lobe , new compared to previous chest xray hx of smoking in past will need diagnostic bronchoscopy with biopsy Discussed with patient's , wants bronchoscopy to be done this hospital admission We will update the pulmonology team Patient will be ordered n.p.o. past midnight on Thursday night for bronchoscopy in a.m. (4) Urinary retention: S/P TURP. Chronic urinary frequency -Davidson cath was placed in ER -Urology consult appreciated Davidson catheter discontinued and the patient is making out urine Out pt follow up with Urology Has been making out urine (5) Coronary artery disease: S/P CABG No CP, SOB -metoprolol, amlodipine, statin -We will hold Plavix and aspirin for possible bronchoscopy biopsy on Thursday (6) Chronic systolic CHF (congestive heart failure): LVEF 25%. Underlying ishcemic +/- hypertensive heart disease. MARTINA / ARB contraindicated in light of CKD. Continue metoprolol, hydralazine. 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 Baseline: 1.4-1.6 -monitor renal functions -avoid nephrotoxic agents when possible (9) Cerebrovascular disease: H/O Multiple ischemic strokes. H/O parenchymal hemorrhage perioperatively during carotid surgery. Has residual aphasia At baseline Hold Plavix for bronchoscopic biopsy, On pravastatin, BP meds (10) Hypertension: Stable. BP: 141/79, 155/83 -Continue metoprolol, amlodipine, hydralazine with holding parameters Blood pressure remains stable (11) COPD (chronic obstructive pulmonary disease): No reported cough or SOB -incentive spirometry (12) Gout: -Continue allopurinol DVT Prophylaxis -SCDs Full Code as per discussion with pt and pt's Follows with Dr Syed for routine care Plan for bronchoscopy on Thursday Possible return home with home health on Thursday with arrangement of home IV antibiotics, plan of care discussed with patient's , in agreement with above Subjective 10/17 The patient was seen and examined in medical floor Chief complaint history of some back pain Denies any other symptoms except generalized weakness 10/18 The patient was seen and examined in the medical floor She remains weak and lethargic without any acute symptoms She denies any other symptoms Has been getting physical therapy and will likely need to go for short-term rehab 10/19 The patient was seen and examined in medical floor in presence of the He is a status post bronchoscopy-no biopsy was taken but the mucus plugging was cleared Patient has some cough but denies any shortness of breath Will need outpatient pulmonary follow-up frequent Review of Systems Review of Systems: All systems reviewed and are unremarkable except as noted below Respiratory: Minimal discomfort at rest Gastrointestinal: Abdominal distention seems to be normal for him and denies any symptoms Physical Exam Physical Exam: No apparent distress at rest Constitutional: WD/WN, vitals as above + obese and comfortable; no acute distress Eyes: PERRL, conjunctivae normal, anicteric sclerae ENMT: external ear and nose normal, oropharynx normal Neck: trachea midline, no thyromegaly Respiratory: normal respiratory effort Auscultation: + diminished lung sounds; no crackles and no wheezes Cardiovascular: RRR, no murmur, no edema Vessels: normal peripheral pulses Chest (Breasts): Chest: no mass Gastrointestinal (Abdomen): Inspection/Auscultation: + abdomen distended and normal bowel sounds Percussion/Palpation: abdomen soft; abdomen nontender and no guarding Musculoskeletal: no cyanosis or clubbing, extremities motor strength 5/5 Head/Neck/Chest: normocephalic and head atraumatic Spine: thoracic spine normal to inspection and lumbar spine normal to inspection; no cervical spinal tenderness Skin: no rashes, warm and dry no rashes, no lesions and no ulcers Neurologic: PERRL, EOMI, accommodation nl, no face palsy, no dysarthria Psychiatric: A+Ox3, euthymic affect Orientation: alert, oriented x 3 and cooperative Eye Contact: good eye contact Speech: no pressured speech Affect: + flat affect Genitourinary: no CVA tenderness Lymphatic: no cervical or axillary lymphadenopathy no lymphedema and no inguinal lymphadenopathy Results & Data Vital Signs (Past 12 Hours) Vital Signs Temp Pulse Pulse Resp BP Pulse Ox 10/19/18 15:58 36.4 C L 87 20 128/78 94 10/19/18 10:00 88 18 119/75 95 10/19/18 09:50 90 20 154/90 H 95 10/19/18 09:45 84 18 164/102 H 96 10/19/18 09:40 83 16 169/69 H 96 10/19/18 09:35 83 16 172/102 H 96 10/19/18 09:30 83 16 132/80 96 10/19/18 09:25 97 H 18 156/84 H 97 10/19/18 09:20 97 H 18 163/92 H 97 10/19/18 09:15 77 18 159/89 H 95 10/19/18 08:12 36.3 C L 90 20 144/97 H 92 Medications Administered Current Inpatient Medications Acetaminophen (Tylenol) 650 mg PO Q4H PRN PRN Reason: Pain or Fever Stop: 11/12/18 22:34 Last Admin: 10/15/18 00:21 Dose: 650 mg Documented by: Allopurinol (Zyloprim) 100 mg PO DAILY [facility] Stop: 11/13/18 08:59 Last Admin: 10/19/18 12:11 Dose: 100 mg Documented by: Amlodipine Besylate (Norvasc) 10 mg PO DAILY [facility] Stop: 11/13/18 08:59 Last Admin: 10/19/18 12:10 Dose: 10 mg Documented by: Cyanocobalamin (Vitamin B-12) 100 mcg PO DAILY [facility] Stop: 11/13/18 08:59 Last Admin: 10/19/18 12:11 Dose: 100 mcg Documented by: Diclofenac Sodium (Voltaren 1% Top) 1 appln EXT BID PRN PRN Reason: right foot Stop: 11/12/18 22:34 Famotidine (Pepcid) 20 mg PO BID [facility] Stop: 11/12/18 22:34 Last Admin: 10/19/18 12:10 Dose: 20 mg Documented by: Heparin Sodium (Porcine) (Heparin Sodium (Porcine)) 5,000 units SQ Q8 [facility] Stop: 11/16/18 21:59 Last Admin: 10/19/18 14:08 Dose: Not Given Documented by: Hydralazine HCl (Apresoline) 10 mg PO TID [facility] Stop: 11/12/18 22:34 Last Admin: 10/19/18 14:50 Dose: Not Given Documented by: Ertapenem 1,000 mg/ Sodium (Chloride) 60 mls @ 100 mls/hr IV Q24H [facility] Stop: 10/25/18 11:29 Last Infusion: 10/19/18 13:11 Dose: Infused Documented by: Metoprolol Tartrate (Lopressor) 50 mg PO Q8 [facility] Stop: 11/12/18 22:34 Last Admin: 10/19/18 14:50 Dose: Not Given Documented by: Multivitamins (Multivitamin Tab) 1 tab PO QAM [facility] Stop: 11/13/18 08:59 Last Admin: 10/19/18 12:05 Dose: 1 tab Documented by: Oxybutynin Chloride (Ditropan) 5 mg PO TID [facility] Stop: 11/14/18 13:59 Last Admin: 10/19/18 14:50 Dose: Not Given Documented by: Pravastatin Sodium (Pravachol) 40 mg PO DAILY [facility] Stop: 11/13/18 08:59 Last Admin: 10/19/18 12:03 Dose: 40 mg Documented by: Sennosides (Senokot) 8.6 mg PO BID PRN PRN Reason: Constipation Stop: 11/12/18 22:34 Trazodone HCl (Desyrel) 50 mg PO HS [facility] Stop: 11/12/18 22:34 Last Admin: 10/18/18 22:23 Dose: 50 mg Documented by: (1) Sepsis Sepsis type: sepsis due to unspecified organism Qualified Code(s): A41.9 - Sepsis, unspecified organism (2) Pneumonia Laterality: left Lung location: lower lobe of lung Pneumonia type: due to unspecified organism Qualified Code(s): J18.1 - Lobar pneumonia, unspecified organism (3) Coronary artery disease Coronary Disease-Associated Artery/Lesion type: [place] artery [place] vs. transplanted heart: [place] heart Associated angina: without angina Qualified Code(s): I25.10 - Atherosclerotic heart disease of [place] coronary artery without angina pectoris (4) Hypertension Hypertension type: unspecified Qualified Code(s): I10 - Essential (primary) hypertension (5) COPD (chronic obstructive pulmonary disease) COPD type: unspecified COPD Qualified Code(s): J44.9 - Chronic obstructive pulmonary disease, unspecified
[2018-10-19] MEDS: TRAZODONE HCL 50 MG TAB PO SCH (21:22)
[2018-10-20] MEDS: METOPROLOL TARTRATE 50 MG TAB PO SCH (06:44)
[2018-10-20] MEDS: HEPARIN SOD 5,000 UNIT/0.5 ML VIAL SQ SCH (06:44)
--- NOTE | 2018-10-20 08:14 | Operative Report ---
DATE OF OPERATION: 10/19/2018 PROCEDURE: Fiberoptic bronchoscopy. INDICATIONS: Right middle lobe nodule/obstruction with right middle lobe collapse, rule out endobronchial obstruction. ANESTHESIA PREOPERATIVELY: None. ANESTHESIA DURING PROCEDURE: IV Versed 2 mg, IV fentanyl 50 mcg, 20 mL 2% Xylocaine spray above and below the cords, 4% viscous Xylocaine intranasally. Moderate conscious sedation was utilized and employed at 0922 and completed at 0940 hours. DESCRIPTION OF PROCEDURE: Fiberoptic bronchoscope was inserted into the right naris with minimal difficulty and passed to the level of the true vocal cords. The cords appeared to approximate normally with phonation without evidence for lesions or paralysis. The area was anesthetized with 2% Xylocaine spray and the scope was then introduced in the trachea and right and left tracheobronchial tree. The rob was sharp. Left mainstem bronchus was explored initially and no obvious endobronchial lesions were seen. Left upper lobe at the apical-posterior and anterior segments, lingular subdivision, left lower lobe were free of endobronchial lesions down to the subsegmental bronchi. The left upper lobe was virtually occluded with thick mucoviscous secretion and was lavaged until clear and the aspirate sent for appropriate studies. Friable mucosa was seen with some mild oozing and hemorrhage which abated spontaneously. No endobronchial lesions were seen. No brushings or biopsies were entertained. Bronchial crypts and clefts were seen throughout the left tracheobronchial tree and all basilar segments of the left lower lobe were found to be free of endobronchial lesions. The scope was then introduced in the right mainstem bronchus and EDAC or endoscopic dynamic airway collapse was seen most prominently displayed throughout the right tracheobronchial tree greater than left. The right upper lobe at the apical posterior and anterior segments, bronchus intermedius were found to be free of endobronchial lesions down to the segmental bronchi of the right lower lobe. The right middle lobe orifice appeared fish mouthed and was occluded with thick mucoviscous and mucopurulent secretion. This was lavaged copiously and the aspirate sent for appropriate studies. I could visualize the medial and lateral segments of the right middle lobe and the medial segment appeared fish mouthed with volume loss but no discernible mass was seen. Following lavage of this area, a moderate amount of hemorrhage was encountered which abated spontaneously for the most part and with the assistance of ice cold saline lavage. No brushings or biopsies were attempted given the hemorrhage noted and the procedure was terminated. The patient tolerated the procedure well and was given a nebulizer treatment with Xopenex 1.25 mg and transferred to the medical floor hemodynamically stable, no signs of respiratory compromise. We will await microbiological and cytologic examination of the bronchial washings. OVERALL ASSESSMENT: 1. EDAC (endoscopic dynamic airway collapse) involving right greater than left tracheobronchial tree. 2. Right middle lobe atelectasis with mucoid impaction with no discernible endobronchial lesion, but with progressive right middle lobe nodule noted. We will await microbiological and cytologic examination of the bronchial washings and continue close surveillance of this nodular density. 3. Mucoviscous and mucopurulent secretion, also involving the left upper lobe bronchus. Will await final identification from the culture results. I attest to the content of the Intraoperative Record and any orders documented therein. Any exception s are noted below.
[2018-10-20] MEDS: PRAVASTATIN SOD 40 MG TAB PO SCH (10:03)
[2018-10-20] MEDS: CYANOCOBALAMIN (VITAMIN B-12) 100 MCG TABLET PO SCH (10:03)
[2018-10-20] MEDS: AMLODIPINE BESYLATE 5 MG TAB PO SCH (10:03)
[2018-10-20] MEDS: OXYBUTYNIN CHLORIDE 5 MG TAB PO SCH (10:03)
[2018-10-20] MEDS: HydrALAZINE 10 MG TAB PO SCH (10:05)
[2018-10-20] MEDS: MULTIVITAMIN TAB PO SCH (10:05)
[2018-10-20] MEDS: ALLOPURINOL 100 MG TAB PO SCH (10:05)
[2018-10-20] MEDS: FAMOTIDINE 20 MG TAB PO SCH (10:06)
--- NOTE | 2018-10-20 10:53 | Hospitalist Progress Note ---
Date of Service October 20, 2018 Assessment & Plan (1) Sepsis: On admission :met criteria for sepsis on admission ;presented with fever T 39.2 /tachycardia HR 105/POC Lactic acid 1.3/leukocytosis WBC 15K Due to UTI -E coli ESBL Appreciate input from ID Recommend to cont with IV Ertapenem for total 14 days Will order PICC line vs USG guided IV access ( will be adequate for 2 weeks of home IV Abx ) No symptoms and/or discomfort Denies any fever no chills and white count is normalized Remains a stable and will be discharged home today (2) Pyelonephritis: Patient presented with dysuria fever and weakness x1 H/O Hospitalization 08/2018 ESBL + E. coli UTI. Was initially treated with ceftriaxone and transitioned to ertapenem x7 days. UA: 2+ protein, 3+ blood, + nitrite, 3+ leukocyte esterase, > 30 WBC and RBC, 2+ bacteria CT abdomen/pelvis: 1. No renal or ureteral stones. Mild fullness within the right renal collecting system without ginger hydronephrosis. 2. Progressive right perinephric edema/fat stranding as well as urothelial thickening within the right renal pelvis and right ureter. This favors a pyelitis/pyelonephritis. 3. There is also mild thickening and fat stranding within the bladder wall likely representing a cystitis. Recommend correlation with urinalysis. Cont Tx with IV Invanz urine culture + ESBL Ecoli ID consulted , appreciate input recommend total 14 days tx With a PICC line and to antibiotic to be continued for 14 days in total Prescription for antibiotic (3) Pneumonia: No evidence of pneumonia , possible atelactasis Incentive spirometry CXR: Left basilar opacity, in part due to prominent epicardial fat pad. Superimposed consolidation cannot be excluded. -d/c Doxycycline no complain of SOB or cough CT Chest:1. Emphysema. 2. There is an abrupt cut off within the proximal segmental bronchi of the right middle lobe with a hypoplastic versus collapsed right middle lobe. If the patient has not had prior surgery within the right middle lobe, then consider follow-up bronchoscopy for further evaluation. 3. Nodular densities described within the right lung base on the prior study represent sclerotic foci within the right anterior fifth rib with the largest measuring 1.2 cm. These are indeterminate but could represent bone islands in the absence of a known malignancy. 4. Mild interstitial thickening and small patchy densities within the left lower lobe posteriorly. This favors atelectasis. A low-grade pneumonitis could also have a similar appearance. RT MIDDLE LUNG COLLAPSE: Incidental finding in CT chest Will have bronchoscopic evaluation tomorrow Status post bronchoscopy this morning-showed extrinsic compression of right middle lobe bronchus, bleeding noted, no biopsy taken but cleared up mucus plug ging Will observe tonight No respiratory symptoms this morning, remains free of symptoms overnight We will discharge him today Appreciate pulmonary input and recommendation for bronchoscopy tomorrow morning Pulmonology consulted appreciate input pt had chest tube placement for itatrogenic pneumothorax in 1998/possible residual scar indeterminate 12 mm nodule noted on rt middle lobe , new compared to previous chest xray hx of smoking in past will need diagnostic bronchoscopy with biopsy Discussed with patient's , wants bronchoscopy to be done this hospital admission We will update the pulmonology team Patient will be ordered n.p.o. past midnight on Thursday night for bronchoscopy in a.m. (4) Urinary retention: S/P TURP. Chronic urinary frequency -Davidson cath was placed in ER -Urology consult appreciated Davidson catheter discontinued and the patient is making out urine Out pt follow up with Urology Has been making out urine (5) Coronary artery disease: S/P CABG No CP, SOB -metoprolol, amlodipine, statin -We will hold Plavix and aspirin for possible bronchoscopy biopsy on Thursday -Continue current medication (6) Chronic systolic CHF (congestive heart failure): LVEF 25%. Underlying ishcemic +/- hypertensive heart disease. MARTINA / ARB contraindicated in light of CKD. Continue metoprolol, hydralazine. 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 Baseline: 1.4-1.6 -monitor renal functions -avoid nephrotoxic agents when possible (9) Cerebrovascular disease: H/O Multiple ischemic strokes. H/O parenchymal hemorrhage perioperatively during carotid surgery. Has residual aphasia At baseline Hold Plavix for bronchoscopic biopsy, On pravastatin, BP meds (10) Hypertension: Stable. BP: 141/79, 155/83 -Continue metoprolol, amlodipine, hydralazine with holding parameters Blood pressure remains stable (11) COPD (chronic obstructive pulmonary disease): No reported cough or SOB -incentive spirometry (12) Gout: -Continue allopurinol DVT Prophylaxis -SCDs Full Code as per discussion with pt and pt's Follows with Dr Syed for routine care Plan for bronchoscopy on Thursday Possible return home with home health on Thursday with arrangement of home IV antibiotics, plan of care discussed with patient's , in agreement with above Will discharge patient today Subjective 10/17 The patient was seen and examined in medical floor Chief complaint history of some back pain Denies any other symptoms except generalized weakness 10/18 The patient was seen and examined in the medical floor She remains weak and lethargic without any acute symptoms She denies any other symptoms Has been getting physical therapy and will likely need to go for short-term rehab 10/19 The patient was seen and examined in medical floor in presence of the He is a status post bronchoscopy-no biopsy was taken but the mucus plugging was cleared Patient has some cough but denies any shortness of breath Will need outpatient pulmonary follow-up frequent 10/20 The patient was seen and examined in medical Is a status post bronchoscopy yesterday He denies any symptoms of chest pain, shortness of breath, cough or hemoptysis He is ready to be discharged today Review of Systems Review of Systems: All systems reviewed and are unremarkable except as noted below Respiratory: Minimal discomfort at rest Gastrointestinal: Abdominal distention seems to be normal for him and denies any symptoms Physical Exam Physical Exam: No apparent distress at rest. Sitting in a chair without any symptoms Constitutional: WD/WN, vitals as above + obese and comfortable; no acute distress Eyes: PERRL, conjunctivae normal, anicteric sclerae ENMT: external ear and nose normal, oropharynx normal Neck: trachea midline, no thyromegaly Respiratory: normal respiratory effort Auscultation: + diminished lung sounds; no crackles and no wheezes Cardiovascular: RRR, no murmur, no edema Vessels: normal peripheral pulses Chest (Breasts): Chest: no mass Gastrointestinal (Abdomen): Inspection/Auscultation: + abdomen distended and normal bowel sounds Percussion/Palpation: abdomen soft; abdomen nontender and no guarding Musculoskeletal: no cyanosis or clubbing, extremities motor strength 5/5 Head/Neck/Chest: normocephalic and head atraumatic Spine: thoracic spine normal to inspection and lumbar spine normal to inspection; no cervical spinal tenderness Skin: no rashes, warm and dry no rashes, no lesions and no ulcers Neurologic: PERRL, EOMI, accommodation nl, no face palsy, no dysarthria Psychiatric: A+Ox3, euthymic affect Orientation: alert, oriented x 3 and cooperative Eye Contact: good eye contact Speech: no pressured speech Affect: + flat affect Genitourinary: no CVA tenderness Lymphatic: no cervical or axillary lymphadenopathy no lymphedema and no inguinal lymphadenopathy Results & Data Vital Signs (Past 12 Hours) Vital Signs Temp Pulse Pulse Resp BP BP Pulse Ox 10/20/18 07:21 36.9 C 79 18 108/75 95 10/20/18 06:42 86 111/76 10/20/18 00:35 10/19/18 23:20 36.6 C 72 18 118/76 90 Pulse Ox 10/20/18 07:21 10/20/18 06:42 10/20/18 00:35 90 10/19/18 23:20 Medications Administered Current Inpatient Medications Acetaminophen (Tylenol) 650 mg PO Q4H PRN PRN Reason: Pain or Fever Stop: 11/12/18 22:34 Last Admin: 10/15/18 00:21 Dose: 650 mg Documented by: Allopurinol (Zyloprim) 100 mg PO DAILY [facility] Stop: 11/13/18 08:59 Last Admin: 10/20/18 10:05 Dose: 100 mg Documented by: Amlodipine Besylate (Norvasc) 10 mg PO DAILY [facility] Stop: 11/13/18 08:59 Last Admin: 10/20/18 10:03 Dose: 10 mg Documented by: Cyanocobalamin (Vitamin B-12) 100 mcg PO DAILY [facility] Stop: 11/13/18 08:59 Last Admin: 10/20/18 10:03 Dose: 100 mcg Documented by: Diclofenac Sodium (Voltaren 1% Top) 1 appln EXT BID PRN PRN Reason: right foot Stop: 11/12/18 22:34 Famotidine (Pepcid) 20 mg PO BID [facility] Stop: 11/12/18 22:34 Last Admin: 10/20/18 10:06 Dose: 20 mg Documented by: Heparin Sodium (Porcine) (Heparin Sodium (Porcine)) 5,000 units SQ Q8 [facility] Stop: 11/16/18 21:59 Last Admin: 10/20/18 06:44 Dose: 5,000 units Documented by: Hydralazine HCl (Apresoline) 10 mg PO TID [facility] Stop: 11/12/18 22:34 Last Admin: 10/20/18 10:05 Dose: 10 mg Documented by: Ertapenem 1,000 mg/ Sodium (Chloride) 60 mls @ 100 mls/hr IV Q24H [facility] Stop: 10/25/18 11:29 Last Infusion: 10/19/18 13:11 Dose: Infused Documented by: Metoprolol Tartrate (Lopressor) 50 mg PO Q8 [facility] Stop: 11/12/18 22:34 Last Admin: 10/20/18 06:44 Dose: 50 mg Documented by: Multivitamins (Multivitamin Tab) 1 tab PO QAM [facility] Stop: 11/13/18 08:59 Last Admin: 10/20/18 10:05 Dose: 1 tab Documented by: Oxybutynin Chloride (Ditropan) 5 mg PO TID [facility] Stop: 11/14/18 13:59 Last Admin: 10/20/18 10:03 Dose: 5 mg Documented by: Pravastatin Sodium (Pravachol) 40 mg PO DAILY [facility] Stop: 11/13/18 08:59 Last Admin: 10/20/18 10:03 Dose: 40 mg Documented by: Sennosides (Senokot) 8.6 mg PO BID PRN PRN Reason: Constipation Stop: 11/12/18 22:34 Trazodone HCl (Desyrel) 50 mg PO HS [facility] Stop: 11/12/18 22:34 Last Admin: 10/19/18 21:22 Dose: 50 mg Documented by: (1) Sepsis Sepsis type: sepsis due to unspecified organism Qualified Code(s): A41.9 - Sepsis, unspecified organism (2) Pneumonia Laterality: left Lung location: lower lobe of lung Pneumonia type: due to unspecified organism Qualified Code(s): J18.1 - Lobar pneumonia, unspecified organism (3) Coronary artery disease Coronary Disease-Associated Artery/Lesion type: [place] artery [place] vs. transplanted heart: [place] heart Associated angina: without angina Qualified Code(s): I25.10 - Atherosclerotic heart disease of [place] coronary artery without angina pectoris (4) Hypertension Hypertension type: unspecified Qualified Code(s): I10 - Essential (primary) hypertension (5) COPD (chronic obstructive pulmonary disease) COPD type: unspecified COPD Qualified Code(s): J44.9 - Chronic obstructive pulmonary disease, unspecified
[2018-10-20] MEDS: ERTAPENEM SODIUM 1,000 MG in SODIUM CHLORIDE 0.9% 50 ML IV SCH (12:10)
--- NOTE | 2018-10-20 12:14 | Discharge Summary ---
Date of Service October 20, 2018 Admission HPI Per Admitting Provider Pt is 68 y/o M with PMH of ischemic heart disease, systolic CHF, CVA, solitary kidney, CKD III, HTN, dyslipidemia, COPD, urinary retention, gout presented to ER with complaint of dysuria and fever. Patient states yesterday started with dysuria. Reports chronic urinary frequency. Today having weakness and fever > 100 F. States has been eating and drinking well. Denies diaphoresis, N/V/D/C, VILLARREAL, dizziness, syncope, vision changes, neck pain, CP, SOB, orthopnea, palpitations, cough, sore throat, choking, otalgia, rhinorrhea, abdominal pain, back pain, flank pain paresthesias, increased extremity edema, rashes, hem aturia. Patient with history hospitalization at [facility] 07/13/2018-07/16/2018 for sepsis, E. coli UTI. Hospitalization 08/26/2018-08/30/2018 ESBL + E. coli UTI. Blood cultures with no growth. Was initially treated with ceftriaxone and transitioned to ertapenem x7 days. Admission Exam Per Admitting Provider Physical Exam: General: chronic ill appearing, no acute distress at this time, obese Head: normocephalic, atraumatic Eyes: PERRL, EOM's intact, conjunctiva non-injected, anicteric ENT: normal inspection external ears, nose, mucous membranes mildly dry Neck: supple, trachea midline, non-tender Lungs: on 2L NC with sat 94%, no retractions, clear, no wheezing/rhonchi/rales CV: sinus tachy, rate 102, no murmur, trace pretibial edema Abd: normal BS, soft, non-tender Ext: no cyanosis, no calf tenderness Neuro: Alert, expressive aphasia (chronic), normal affect Skin: warm, dry Principal Diagnosis Acute pyelonephritis, ESBL E. coli, CAD status post CABG, chronic systolic heart failure, history of CVD, Discharge Exam Constitutional WD/WN, vitals as above + obese and comfortable; no acute distress Eyes PERRL, conjunctivae normal, anicteric sclerae ENMT external ear and nose normal, oropharynx normal Neck trachea midline, no thyromegaly Respiratory normal respiratory effort Auscultation: + diminished lung sounds; no crackles and no wheezes Cardiovascular RRR, no murmur, no edema Vessels: normal peripheral pulses Chest (Breasts) Chest: no mass Gastrointestinal (Abdomen) Inspection/Auscultation: + abdomen distended and normal bowel sounds Percussion/Palpation: abdomen soft; abdomen nontender and no guarding Musculoskeletal no cyanosis or clubbing, extremities motor strength 5/5 Head/Neck/Chest: normocephalic and head atraumatic Spine: thoracic spine normal to inspection and lumbar spine normal to inspection; no cervical spinal tenderness Skin no rashes, warm and dry no rashes, no lesions and no ulcers Neurologic PERRL, EOMI, accommodation nl, no face palsy, no dysarthria Psychiatric A+Ox3, euthymic affect Orientation: alert, oriented x 3 and cooperative Eye Contact: good eye contact Speech: no pressured speech Affect: + flat affect Genitourinary no CVA tenderness Lymphatic no cervical or axillary lymphadenopathy no lymphedema and no inguinal lymphadenopathy Discharge Data Allergies Allergy/AdvReac Type Severity Reaction Status Date / Time aspirin AdvReac Intermediate RELAXES Verified 10/13/18 20:44 RECTUM atorvastatin AdvReac Intermediate RELAXED Verified 10/13/18 20:44 RECTAL SPHINCTER Consultations 10/13/18 19:47 ED Decision to Admit Stat 10/13/18 22:35 Consult Case Management - Discharge Planning Routine Consult Infectious Diseases Routine Consult Urology Routine 10/14/18 06:02 Consult Pulmonology Routine Procedures Performed Operation Date: 10/19/18 09:15 Actual Procedures p Bronchoscopy Radiology(Bilateral) - Juan Hogue MD Ordered Studies 10/13/18 18:32 CT abd pelvis wo con Stat 10/13/18 20:40 CT chest wo con Urgent Hospital Course (1) Sepsis: On admission :met criteria for sepsis on admission ;presented with fever T 39.2 /tachycardia HR 105/POC Lactic acid 1.3/leukocytosis WBC 15K Due to UTI -E coli ESBL Appreciate input from ID Recommend to cont with IV Ertapenem for total 14 days Will order PICC line vs USG guided IV access ( will be adequate for 2 weeks of home IV Abx ) No symptoms and/or discomfort Denies any fever no chills and white count is normalized Remains a stable and will be discharged home today (2) Pyelonephritis: Patient presented with dysuria fever and weakness x1 H/O Hospitalization 08/2018 ESBL + E. coli UTI. Was initially treated with ceftriaxone and transitioned to ertapenem x7 days. UA: 2+ protein, 3+ blood, + nitrite, 3+ leukocyte esterase, > 30 WBC and RBC, 2+ bacteria CT abdomen/pelvis: 1. No renal or ureteral stones. Mild fullness within the right renal collecting system without ginger hydronephrosis. 2. Progressive right perinephric edema/fat stranding as well as urothelial thickening within the right renal pelvis and right ureter. This favors a ward litis/pyelonephritis. 3. There is also mild thickening and fat stranding within the bladder wall likely representing a cystitis. Recommend correlation with urinalysis. Cont Tx with IV Invanz urine culture + ESBL Ecoli ID consulted , appreciate input recommend total 14 days tx With a PICC line and to antibiotic to be continued for 14 days in total Prescription for antibiotic (3) Pneumonia: No evidence of pneumonia , possible atelactasis Incentive spirometry CXR: Left basilar opacity, in part due to prominent epicardial fat pad. Superimposed consolidation cannot be excluded. -d/c Doxycycline no complain of SOB or cough CT Chest:1. Emphysema. 2. There is an abrupt cut off within the proximal segmental bronchi of the right middle lobe with a hypoplastic versus collapsed right middle lobe. If the patient has not had prior surgery within the right middle lobe, then consider follow-up bronchoscopy for further evaluation. 3. Nodular densities described within the right lung base on the prior study represent sclerotic foci within the right anterior fifth rib with the largest measuring 1.2 cm. These are indeterminate but could represent bone islands in the absence of a known malignancy. 4. Mild interstitial thickening and small patchy densities within the left lower lobe posteriorly. This favors atelectasis. A low-grade pneumonitis could also have a similar appearance. RT MIDDLE LUNG COLLAPSE: Incidental finding in CT chest Will have bronchoscopic evaluation tomorrow Status post bronchoscopy this morning-showed extrinsic compression of right middle lobe bronchus, bleeding noted, no biopsy taken but cleared up mucus plugging Will observe tonight No respiratory symptoms this morning, remains free of symptoms overnight We will discharge him today Appreciate pulmonary input and recommendation for bronchoscopy tomorrow morning Pulmonology consulted appreciate input pt had chest tube placement for itatrogenic pneumothorax in 1998/possible residual scar indeterminate 12 mm nodule noted on rt middle lobe , new compared to previous chest xray hx of smoking in past will need diagnostic bronchoscopy with biopsy Discussed with patient's , wants bronchoscopy to be done this hospital admission We will update the pulmonology team Patient will be ordered n.p.o. past midnight on Thursday night for bronchoscopy in a.m. (4) Urinary retention: S/P TURP. Chronic urinary frequency -Davidson cath was placed in ER -Urology consult appreciated Davidson catheter discontinued and the patient is making out urine Out pt follow up with Urology Has been making out urine (5) Coronary artery disease: S/P CABG No CP, SOB -metoprolol, amlodipine, statin -We will hold Plavix and aspirin for possible bronchoscopy biopsy on Thursday -Continue current medication (6) Chronic systolic CHF (congestive heart failure): LVEF 25%. Underlying ishcemic +/- hypertensive heart disease. MARTINA / ARB contraindicated in light of CKD. Continue metoprolol, hydralazine. 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 Baseline: 1.4-1.6 -monitor renal functions -avoid nephrotoxic agents when possible (9) Cerebrovascular disease: H/O Multiple ischemic strokes. H/O parenchymal hemorrhage perioperatively during carotid surgery. Has residual aphasia At baseline Hold Plavix for bronchoscopic biopsy, On pravastatin, BP meds (10) Hypertension: Stable. BP: 141/79, 155/83 -Continue metoprolol, amlodipine, hydralazine with holding parameters Blood pressure remains stable (11) COPD (chronic obstructive pulmonary disease): No reported cough or SOB -incentive spirometry (12) Gout: -Continue allopurinol DVT Prophylaxis -SCDs Full Code as per discussion with pt and pt's Follows with Dr Syed for routine care Plan for bronchoscopy on Thursday Possible return home with home health on Thursday with arrangement of home IV antibiotics, plan of care discussed with patient's , in agreement with above Will discharge patient today Total Time Total Time Spent Total Time Spent (In Minutes): 35 minutes Total Time Includes: Examination of the Patient, Discharge Planning, Medication Reconciliation and Communication With Other Providers Discharge Plan Discharge Items Patient Disposition: Home - Home Health Services Reason For Visit: SEPSIS,PYELO Discharge Diagnosis: Acute pyelonephritis, ESBL E. coli, CAD status post CABG, chronic systolic heart failure, history of CVD, Condition: Good Discharge Goals: Decrease discomfort Activity: Resume your previous activity Non-emergency contact: Primary Care Provider Call non-emergency contact if: you have any medication questions and your symptoms worsen Follow-up/Referrals: Juan Hogue MD [Physician] - (Please make an appointment with Dr. Morillo in about 1 to 2 weeks) Luis Armando Syed DO [Primary Care Provider] - 10/25/18 9:05 am (Your appointment is with Grabiel ESCALERA. Dr. Syed does not have any opening. Urology will make an follow-up appointment) Diet: Heart Healthy Addtl Provider Instructions: Please take precaution to avoid Prescriptions: New ertapenem 1 gram [place] 1 gm IV DAILY 7 Days Qty: 7 RF: 0 Continued hydralazine 10 mg tablet 10 mg PO TID RF: 0 trazodone 50 mg tablet 50 mg PO HS RF: 0 pravastatin 40 mg tablet 40 mg PO DAILY RF: 0 clopidogrel 75 mg tablet 75 mg PO QPM RF: 0 allopurinol 100 mg tablet 100 mg PO DAILY RF: 0 famotidine 20 mg tablet 20 mg PO BID RF: 0 metoprolol tartrate 50 mg tablet 50 mg PO Q8 RF: 0 multivitamin Tablet,Chewable 1 tab PO DAILY RF: 0 amlodipine [Norvasc] 10 mg tablet 10 mg PO DAILY RF: 0 diclofenac sodium [Voltaren] 1 % Gel 2 g TOPICAL BID PRN (Reason: right foot) RF: 0 cyanocobalamin (vitamin B-12) 100 mcg Tablet 100 mcg PO DAILY RF: 0 sennosides [Vegetable Laxative] 8.6 mg Tablet 8.6 mg PO BID PRN (Reason: Constipation) RF: 0 acetaminophen [Tylenol Arthritis Pain] 650 mg Tablet Extended Release 1,300 mg PO Q12H PRN (Reason: Pain) RF: 0 oxybutynin chloride 5 mg Tablet 5 mg PO TID PRN (Reason: Bladder Spasms) RF: 0 Lactinex 1 million cell tablet,chewable 1 tab PO BID Qty: 14 RF: 0 Stand-Alone Forms: [facility] Discharge Orders: Discharge Order (Routine); Ordered 10/20/18 Ordered By: Nirmal Coelho Admission Data Admit Date/Time: 10/13/18 20:40 Attending Provider: Nirmal Coelho Admit Provider: Federico Martinez Primary Care Provider: Luis Armando Syed V. Other Providers: Nirmal Coelho ; Trae Cobos ; Toni Salgado ; Jean-Pierre Franks ; Haleigh Barajas Service: Medical
[2018-10-23 13:33] LABS: Aspergillus Ag Index 0.08 (<0.50); Aspergillus Antigen, Serum Not Detected (Not Detected); Aspergillus Flavus Negative (Negative); Aspergillus Niger Negative (Negative); Rast Aspergillus fumigatus IgG 71.5 mcg/mL (<2.0)
== END 2018-10-20 13:40 | disposition home health service (06) | DRG 853 ==
LOC: ED 17:56 → SUATTDRO 20:40 → 2S 20:40 → 4W 10-14 16:50

== ENCOUNTER 2019-10-21 19:09 | Inpatient (IN) ==
[2019-10-21 20:58] LABS: Basophils # (auto) 0.04 K/uL (0-0.2); Basophils % (auto) 0.3 %; Eosinophils # (auto) 0.03 K/uL (0-0.5); Eosinophils % (auto) 0.2 %; Hematocrit (blood only) 55.2 % (42-52); Hemoglobin 18.3 g/dL (14.0-18.0); Immature Granulocytes # (auto) 0.02 K/uL (0.00-0.02); Immature Granulocytes % (auto) 0.1 %; Lymphocytes # (auto) 1.44 K/uL (1.2-3.4); Lymphocytes % (auto) 10.5 %; Mean Corpuscular Hemoglobin 31.8 pg (25-34); Monocytes % (auto) 7.3 %; Neutrophils # (auto) 11.21 K/uL (1.4-6.5); Neutrophils % (auto) 81.6 %; Platelet Count 192 K/uL (130-400); RDW Coefficient of Variation 13.6 % (11.5-14.5); RDW Standard Deviation 47.6 fL (36.4-46.3); Red Blood Count 5.75 M/uL (4.7-6.1); White Blood Count 13.74 K/uL (4.8-10.8)
--- NOTE | 2019-10-21 21:01 | Emergency Department Note ---
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 He was treated with morphine and Zofran and did feel better with this. The patient had blood work obtained and this revealed a leukocytosis on CBC. There is a slight bump in his LFTs. The patient underwent CT imaging and this showed a bowel obstruction with probable adhesion. NG tube was ordered. The patient had a consultation placed with Dr. Zhou of general surgery. Also a consultation was placed with Dr. Frias of internal medicine. There was difficulty placing his NG tube in the emergency department as it would not pass either nostril. I did augment the attempt with atomized lidocaine but this did not help. Admitting team was aware. Triage Nursing notes reviewed and agree them. [Additional history obtained from] patient's Vital Signs: reviewed and remarkable for mild tachycardia Differential diagnosis: Appendicitis, testicular torsion, infections, diverticulitis, UTI, obstruction, mesenteric ischemia, aortic pathology, inflammatory bowel disease, renal colic, PUD, pancreatitis, biliary pathology, hernia, volvulus, constipation, as well as other pathologies. ER treatment provided: Normal saline Zofran Morphine Diagnostics interpreted by me: ECG: Rate: 100 Rhythm:Normal sinus [place]:Normal QRS:Normal duration. Septal Q waves. ST segements:No elevation or depression Other:No PACs or PVCs. Cardiac Monitoring: Cardiac monitoring ordered by me: The patient was placed on continuous cardiac monitoring and observed. It revealed a normal sinus rhythm at 95 beats per minute without ectopy or evidence of dysrhythmia. Laboratory studies: [See below] leukocytosis on CBC. Chemistry panel unremarkable. LFTs minimally elevated Imaging studies: CT scan of the abdomen pelvis is concerning for bowel obstruction. Consultation(s): Internal medicine and general surgery as above HPI: The patient is a 69 year old male who presents to the Emergency Room with complaints of generalized, crampy abdominal pain. This started after lunch today and is worsening. The patient also notes the following associated symptoms, nausea and vomiting. The patient has found relieving factors. Current pain is rated as 8/10. Has had some constipation issues and a dark green stool today. Pt denies LOC, headache, fevers, chills, diaphoresis, visual changes, neck pain, chest pain, breathing difficulties, hematemesis, back pain, melena, hematochezia, urinary symptoms, numbness, weakness, lymphadenopathy, rash, or other complaints. ROS: See above HPI for pertinent positives & negatives. A total of [10] systems reviewed and were otherwise negative. PAST MEDICAL HISTORY:[See Below] COPD, CAD, CVA PAST SURGICAL HISTORY:[See Below]Aortic repair after cardiac cath complication causing tear FAMILY HISTORY:[See Below] SOCIAL HISTORY:[See Below] HOME MEDICATIONS:[See Below] ALLERGIES:[See Below] VITALS:[See Below] PHYSICAL EXAMINATION: GENERAL: Awake, alert, uncomfortable-appearing, in no distress HENT: Normocephalic, atraumatic. Oropharynx unremarkable. EYES: Normal conjunctiva. Sclera non-icteric. NECK: Inspection normal. Non-tender. Supple. No nuchal rigidity. FROM. No masses. RESPIRATORY: Clear to auscultation. No wheezes. No rales. Normal respiratory effort. CARDIAC: Normal rate. Normal rhythm. No murmurs. No rubs. Extremities warm and well perfused. Pulses equal. No JVD. GI: Soft, non-distended. Generalized tenderness to palpation. No rebound or guarding. No masses. RECTAL: Deferred. MUSCULOSKELETAL: Atraumatic. Chest examination reveals no tenderness. The back is symmetrical on inspection without obvious abnormality. There is no CVA tenderness to palpation. No joint edema. LOWER EXTREMITIES: Calves are equal size bilaterally and non-tender. No edema. No discoloration. NEURO: Normal sensorium. No sensory or motor deficits noted. SKIN: No rash or jaundice noted. ED COURSE: [Critical Care:] [None] Joe Stahl MD Past Med/Surg History Surgical History (Updated 04/27/19 @ 10:05 by Valery Peña RN) History of bronchoscopy x2 History of cardiac cath x2----no stents History of colonoscopy History of tooth extraction all upper teeth Status post abdominal aortic aneurysm (AAA) repair (Chronic) [place] [facility] [place] post carotid endarterectomy (Chronic) 09/30/2013--[place] [facility] [place] post coronary artery bypass graft (Chronic) 1998 @ [facility] [place] Status post nephrectomy (Chronic) left atrophic, nonfunctional associated with hypertension Status post transurethral resection of prostate (Chronic) Social History Preferred Language: Maori Communication Ability: Impaired Visual Impairment: No Limitations Hearing Ability: Normal 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 Beliefs That Will Affect Care: None Current Living Situation: Spouse and Family Current Living Situation Comment: Lives with and sister Feels Safe at Home: Yes Smoking Status: Former smoker Cigarettes Per Day: 20-40 ; Second Hand Exposure: No ; Hx Alcohol Use: No Hx Substance Use: No Allergies Allergies Allergy/AdvReac Type Severity Reaction Status Date / Time aspirin AdvReac Intermediate RELAXES Verified 06/13/19 14:35 RECTUM atorvastatin AdvReac Intermediate RELAXED Verified 06/13/19 14:35 RECTAL SPHINCTER Home Meds Home Medications Medication Instructions Recorded Confirmed allopurinol 100 mg PO QAM 07/13/18 10/21/19 clopidogrel 75 mg PO QPM 07/13/18 10/21/19 famotidine 20 mg PO BID 07/13/18 10/21/19 metoprolol tartrate 50 mg PO BID 07/13/18 10/21/19 multivitamin 1 tab PO QAM 07/13/18 10/21/19 pravastatin 40 mg PO QPM 07/13/18 10/21/19 trazodone 50 mg PO HS 07/13/18 10/21/19 acetaminophen [Tylenol Arthritis 1,300 mg PO Q12H PRN 08/26/18 10/21/19 Pain] sennosides [Vegetable Laxative] 8.6 mg PO BID PRN 08/26/18 10/21/19 amlodipine [Norvasc] 10 mg PO QPM 10/13/18 10/21/19 cyanocobalamin (vitamin B-12) 100 mcg PO QAM 10/13/18 10/21/19 diclofenac sodium [Voltaren] 2 g TOPICAL BID PRN 10/13/18 10/21/19 finasteride [Proscar] 5 mg PO QPM 04/27/19 10/21/19 turmeric 400 mg PO QAM 04/27/19 10/21/19 hydralazine 10 mg tablet 10 mg PO BID tab 06/13/19 10/21/19 Previous Rx's Medication Instructions Recorded Oxygen Home #1 ea 01/06/19 budesonide-formoterol HFA 160 2 puffs INH BID #10.2 gm 03/21/19 mcg-4.5 mcg/actuation aerosol inhaler Results & Data (ED) Vital Signs Vital Signs - 24 hr 10/21/19 19:24 10/21/19 20:50 10/21/19 20:51 Temperature 36.9 C Temperature Source Oral Pulse Rate 97 H Pulse Rate [Finger] 89 Pulse Rate from SpO2 Sensor Respiratory Rate 20 18 Respiratory Effort / Characteristics Non-Labored Spontaneous Respiratory Depth Normal Normal Blood Pressure 117/86 Blood Pressure [Right Arm] 124/87 Blood Pressure Mean 96 Blood Pressure Mean [Right Arm] 99 Pulse Oximetry 92 93 Oxygen Delivery Method Room Air Room Air Room Air Oxygen Flow Rate Sepsis Action Taken by Nursing No Action Required 10/21/19 22:00 10/21/19 22:01 10/21/19 22:30 Temperature Temperature Source Pulse Rate 98 H 98 H 98 H Pulse Rate [Finger] Pulse Rate from SpO2 Sensor 98 H Respiratory Rate 17 17 17 Respiratory Effort / Characteristics Respiratory Depth Blood Pressure 119/82 Blood Pressure [Right Arm] Blood Pressure Mean 91 Blood Pressure Mean [Right Arm] Pulse Oximetry 90 Oxygen Delivery Method Room Air Oxygen Flow Rate Sepsis Action Taken by Nursing 10/21/19 23:00 10/21/19 23:01 10/21/19 23:55 Temperature Temperature Source Pulse Rate 108 H 110 H Pulse Rate [Finger] Pulse Rate from SpO2 Sensor Respiratory Rate 21 19 Respiratory Effort / Characteristics Respiratory Depth Blood Pressure 143/94 H Blood Pressure [Right Arm] Blood Pressure Mean 126 Blood Pressure Mean [Right Arm] Pulse Oximetry 84 L Oxygen Delivery Method Room Air Oxygen Flow Rate Sepsis Action Taken by Nursing 10/21/19 23:56 10/22/19 00:09 10/22/19 00:22 Temperature Temperature Source Pulse Rate 102 H Pulse Rate [Finger] Pulse Rate from SpO2 Sensor Respiratory Rate Respiratory Effort / Characteristics Respiratory Depth Blood Pressure 149/81 H Blood Pressure [Right Arm] Blood Pressure Mean Blood Pressure Mean [Right Arm] Pulse Oximetry 94 Oxygen Delivery Method Nasal Cannula Nasal Cannula Oxygen Flow Rate 3 3 Sepsis Action Taken by Nursing Laboratory Data Result diagrams: 10/21/19 20:43 10/21/19 20:43 Lab Results 10/21/19 10/21/19 Range/Units 20:43 20:43 WBC 13.74 H (4.8-10.8) K/uL RBC 5.75 (4.7-6.1) M/uL Hgb 18.3 H (14.0-18.0) g/dL Hct 55.2 H (42-52) % MCV 96.0 (80-100) fL MCH 31.8 (25-34) pg MCHC 33.2 (32-36) g/dL RDW Std Deviation 47.6 H (36.4-46.3) fL RDW Coeff of Ketan 13.6 (11.5-14.5) % Plt Count 192 (130-400) K/uL MPV 10.0 (7.4-10.4) fL Immature Gran % (Auto) 0.1 % Neut % (Auto) 81.6 % Lymph % (Auto) 10.5 % [place] % (Auto) 7.3 % Eos % (Auto) 0.2 % Baso % (Auto) 0.3 % Immature Gran # (Auto) 0.02 (0.00-0.02) K/uL Neut # (Auto) 11.21 H (1.4-6.5) K/uL Lymph # (Auto) 1.44 (1.2-3.4) K/uL [place] # (Auto) 1.00 H (0.11-0.59) K/uL Eos # (Auto) 0.03 (0-0.5) K/uL Baso # (Auto) 0.04 (0-0.2) K/uL Sodium 136 (136-145) mmol/L Potassium 4.2 (3.5-5.1) mmol/L Chloride 104 (98-107) mmol/L Carbon Dioxide 26 (21-32) mmol/L Anion Gap 6.0 (3-11) BUN 24 H (7-18) mg/dl Creatinine 1.65 H (0.6-1.4) mg/dl Est Cr Clr Drug Dosing 44.7 ml/min Est GFR ( Amer) 47.7 Est GFR (Non-Af Amer) 41.1 BUN/Creatinine Ratio 14.5 (10-20) Glucose 147 H (70-99) mg/dl Calcium 10.4 H (8.5-10.1) mg/dl Magnesium 2.0 (1.8-2.4) mg/dl Total Bilirubin 0.3 (0.2-1) mg/dl AST 32 (15-37) U/L ALT 80 H (12-78) U/L Alkaline Phosphatase 99 (45-117) U/L Total Protein 7.7 (6.4-8.2) gm/dl Albumin 3.7 (3.4-5.0) gm/dl Globulin 4.0 (2.5-4.0) gm/dl Albumin/Globulin Ratio 0.9 (0.9-2) Lipase 147 (73-393) U/L Administered Medications Sodium Chloride (Nss 1000ml) 1,000 mls @ 125 mls/hr IV .Q8H STA Stop: 10/22/19 05:04 Last Admin: 10/21/19 21:09 Dose: 125 mls/hr Documented by: [id number] Morphine Sulfate (Morphine Sulfate) 4 mg IV Q15M PRN PRN Reason: Pain Stop: 11/04/19 21:14 Last Admin: 10/21/19 21:09 Dose: 4 mg Documented by: [id number] Discontinued Medications Piperacillin Sod/Tazobactam Sod (Zosyn) 4.5 gm in 120 mls @ 240 mls/hr IV NOW STA Stop: 10/21/19 23:53 Last Admin: 10/22/19 00:09 Dose: 240 mls/hr Documented by: [id number] Lidocaine HCl (Xylocaine 1% (Local)) Confirm Administered Dose 20 ml .ROUTE .K-MED ONE Stop: 10/21/19 22:50 Last Admin: 10/21/19 23:25 Dose: 20 ml Documented by: [id number] Metoprolol Tartrate (Lopressor) 2.5 mg IV NOW STA Stop: 10/21/19 23:46 Last Admin: 10/22/19 00:09 Dose: 2.5 mg Documented by: [id number] Ondansetron HCl (Zofran) 4 mg IV NOW STA Stop: 10/21/19 21:05 Last Admin: 10/21/19 21:09 Dose: 4 mg Documented by: [id number] Discharge Plan Visit Data Chief Complaint: Abdominal Pain Stated Complaint: ABDOMINAL PAIN ED Provider: Joe Stahl Discharge Problem: 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 [employer] Prescriptions Prescriptions: No Action (DME) Oxygen Home Liters Per Minute See Dose Instructions .ROUTE .MEDSUPPLY Qty: 1 RF: 0 Symbicort 160-4.5 mcg/actuation HFA aerosol inhaler 2 puffs INH BID Qty: 10.2 RF: 5 trazodone 50 mg tablet 50 mg PO HS RF: 0 pravastatin 40 mg tablet 40 mg PO QPM RF: 0 clopidogrel 75 mg tablet 75 mg PO QPM RF: 0 allopurinol 100 mg tablet 100 mg PO QAM RF: 0 famotidine 20 mg tablet 20 mg PO BID RF: 0 metoprolol tartrate 50 mg tablet 50 mg PO BID RF: 0 multivitamin Tablet,Chewable 1 tab PO QAM RF: 0 hydralazine 10 mg tablet 10 mg PO BID RF: 0 amlodipine [Norvasc] 10 mg tablet 10 mg PO QPM RF: 0 diclofenac sodium [Voltaren] 1 % Gel 2 g TOPICAL BID PRN (Reason: right foot) RF: 0 cyanocobalamin (vitamin B-12) 100 mcg Tablet 100 mcg PO QAM RF: 0 sennosides [Vegetable Laxative] 8.6 mg Tablet 8.6 mg PO BID PRN (Reason: Constipation) RF: 0 acetaminophen [Tylenol Arthritis Pain] 650 mg Tablet Extended Release 1,300 mg PO Q12H PRN (Reason: Pain) RF: 0 finasteride [Proscar] 5 mg tablet 5 mg PO QPM RF: 0 turmeric 400 mg Capsule 400 mg PO QAM RF: 0 Referrals Referrals: Luis Armando Syed DO [Primary Care Provider] -
[2019-10-21] MEDS ORDERED: MoRPHine SULFATE 4 MG/ML 1 ML CARP\\VIAL IV PRN (21:04)
[2019-10-21] MEDS ORDERED: ONDANSETRON INJ 2 MG/ML 2 ML VIAL IV STA (21:04)
[2019-10-21] MEDS ORDERED: SODIUM CHLORIDE 0.9% 1000ML 1,000 ML IV STA (21:05)
[2019-10-21 21:08] LABS: Albumin Level 3.7 gm/dl (3.4-5.0); BUN Creatinine Ratio 14.5 (10-20); Calcium 10.4 mg/dl (8.5-10.1); Creatinine Clr Calc Pharmacy 44.7 ml/min; Est GFR (African American) 47.7; Est GFR (Non-African American) 41.1; Potassium 4.2 mmol/L (3.5-5.1)
[2019-10-21 21:12] LABS: Albumin Globulin Ratio 0.9 (0.9-2); Bilirubin,Total 0.3 mg/dl (0.2-1); Total Protein 7.7 gm/dl (6.4-8.2)
[2019-10-21 21:14] LABS: Mean Corpuscular Hgb Conc 33.2 g/dL (32-36)
[2019-10-21] MEDS ORDERED: LIDOCAINE HCL 1% 20 ML VIAL ONE (22:49)
--- NOTE | 2019-10-21 22:54 | Surgery Consultation ---
Date of Consultation October 21, 2019 Assessment & Plan (1) SBO (small bowel obstruction): pt is a 69 year-old male who presents to ER with acute abdominal pain, IMP: SBO, Plan, I agree with hospitalist will admit to hospital for conservative treatment, NPO, IV fluid, control pain, WBC high, star cipro 400mg iv bid, repeat labs in am,KUB in am, NG tube insertion, no emergent surgical indication now, will F/U thanks, pt agrees with the plan, I answered all questions, History of Present Illness History of Present Illness CC: abdominal pain HPI: The patient is a 69 year old male who presents to the Emergency Room with complaints of generalized, crampy abdominal pain. This started after lunch today and is worsening. The patient also notes the following associated symptoms, nausea and vomiting. The patient has found relieving factors. Current pain is rated as 8/10. Has had some constipation issues and a dark green stool today. Pt denies LOC, headache, fevers, chills, diaphoresis, visual changes, neck pain, chest pain, breathing difficulties, hematemesis, back pain, melena, hematochezia, urinary symptoms, numbness, weakness, lymphadenopathy, rash, or other complaints. I ( Leon Robertson MD ) got a call for consult SBO, I reviewed pt's H/P, labs, CT scan with pt, pt is still have abdominal pain, ROS: See above HPI for pertinent positives & negatives. A total of [10] systems reviewed and were otherwise negative. PAST MEDICAL HISTORY: [See Below] COPD, CAD, CVA PAST SURGICAL HISTORY: [See Below] Aortic repair after cardiac cath complication causing tear FAMILY HISTORY: [See Below] SOCIAL HISTORY: [See Below] HOME MEDICATIONS: [See Below] ALLERGIES: [See Below] Allergies Allergy/AdvReac Type Severity Reaction Status Date / Time aspirin AdvReac Intermediate RELAXES Verified 06/13/19 14:35 RECTUM atorvastatin AdvReac Intermediate RELAXED Verified 06/13/19 14:35 RECTAL SPHINCTER Home Medications Home Medications Medication Instructions Recorded Confirmed Type allopurinol 100 mg PO QAM 07/13/18 10/21/19 History clopidogrel 75 mg PO QPM 07/13/18 10/21/19 History famotidine 20 mg PO BID 07/13/18 10/21/19 History metoprolol tartrate 50 mg PO BID 07/13/18 10/21/19 History multivitamin 1 tab PO QAM 07/13/18 10/21/19 History pravastatin 40 mg PO QPM 07/13/18 10/21/19 History trazodone 50 mg PO HS 07/13/18 10/21/19 History acetaminophen [Tylenol Arthritis 1,300 mg PO Q12H PRN 08/26/18 10/21/19 History Pain] sennosides [Vegetable Laxative] 8.6 mg PO BID PRN 08/26/18 10/21/19 History amlodipine [Norvasc] 10 mg PO QPM 10/13/18 10/21/19 History cyanocobalamin (vitamin B-12) 100 mcg PO QAM 10/13/18 10/21/19 History diclofenac sodium [Voltaren] 2 g TOPICAL BID PRN 10/13/18 10/21/19 History Oxygen Home #1 ea 01/06/19 06/13/19 Rx budesonide-formoterol HFA 160 2 puffs INH BID #10.2 gm 03/21/19 10/21/19 Rx mcg-4.5 mcg/actuation aerosol inhaler finasteride [Proscar] 5 mg PO QPM 04/27/19 10/21/19 History turmeric 400 mg PO QAM 04/27/19 10/21/19 History hydralazine 10 mg tablet 10 mg PO BID tab 06/13/19 10/21/19 History Patient History Surgical History (Updated 04/27/19 @ 10:05 by Valery Peña RN) History of bronchoscopy x2 History of cardiac cath x2----no stents History of colonoscopy History of tooth extraction all upper teeth Status post abdominal aortic aneurysm (AAA) repair (Chronic) 1998 @ [facility] Status post carotid endarterectomy (Chronic) 09/30/2013--left @ [facility] Status post coronary artery bypass graft (Chronic) 1998 @ [facility] Status post nephrectomy (Chronic) left atrophic, nonfunctional associated with hypertension Status post transurethral resection of prostate (Chronic) Social History Preferred Language: Malian Communication Ability: Impaired Visual Impairment: No Limitations Hearing Ability: Normal Social Services Counselor Required: No Beliefs That Will Affect Care: None Current Living Situation: Spouse and Family Current Living Situation Comment: Lives with and sister Feels Safe at Home: Yes Smoking Status: Former smoker Cigarettes Per Day: 20-40 ; Second Hand Exposure: No ; Hx Alcohol Use: No Hx Substance Use: No Review of Systems Review of Systems: All systems reviewed & are unremarkable except as noted in HPI & below Constitutional: as per Subjective / HPI Eyes: as per Subjective / HPI Ear, Nose, Mouth, Throat: as per Subjective / HPI Respiratory: as per Subjective / HPI COPD, pulmonary nodule Cardiovascular: as per Subjective / HPI Additional Comments: CAD, HTNPVD Gastrointestinal: as per Subjective / HPI Genitourinary: + as per Subjective / HPI and + problem reported (urinary retention, acute renal failure) Musculoskeletal: as per Subjective / HPI Integumentary: as per Subjective / HPI Neurologic: CVA Psychiatric: as per Subjective / HPI Endocrine: as per Subjective / HPI Hematologic / Lymphatic: as per Subjective / HPI Allergy / Immunological: as per Subjective / HPI Physical Exam Constitutional: WD/WN, vitals as above well developed and well nourished Eyes: PERRL, conjunctivae normal, anicteric sclerae ENMT: external ear and nose normal, oropharynx normal Neck: trachea midline, no thyromegaly Respiratory: normal respiratory effort, lungs clear to auscultation normal respiratory effort Cardiovascular: RRR, no murmur, no edema Rate/Rhythm: regular rate and regular rhythm Heart Sounds: normal S1 and normal S2 Gastrointestinal (Abdomen): normal bowel sounds, soft, nontender, no hepatosplenomegaly Percussion/Palpation: abdomen soft surgical scar on abdomen small incision hernia, tenderness upper abdomen, no rebound pain, BS +, mild distend, Musculoskeletal: no cyanosis or clubbing, extremities motor strength 5/5 Skin: no rashes, warm and dry Neurologic: patellar DTR's 2+ bilat, sensation intact Psychiatric: Orientation: alert and oriented x 3 Results & Data Vital Signs (Past 12 Hours) Vital Signs Temp Pulse Pulse Resp BP BP Pulse Ox 10/21/19 20:51 89 18 124/87 93 10/21/19 19:24 36.9 C 97 H 20 117/86 92 Laboratory Results Abnormal lab results 10/21/19 10/21/19 Range/Units 20:43 20:43 WBC 13.74 H (4.8-10.8) K/uL Hgb 18.3 H (14.0-18.0) g/dL Hct 55.2 H (42-52) % RDW Std Deviation 47.6 H (36.4-46.3) fL Neut # (Auto) 11.21 H (1.4-6.5) K/uL [place] # (Auto) 1.00 H (0.11-0.59) K/uL BUN 24 H (7-18) mg/dl Creatinine 1.65 H (0.6-1.4) mg/dl Glucose 147 H (70-99) mg/dl Calcium 10.4 H (8.5-10.1) mg/dl ALT 80 H (12-78) U/L Diagnostic Findings CT scan- high degree SBO,
[2019-10-21] MEDS ORDERED: PIPERACILL/TAZOBAC CONSULT ACTIVE PRN (23:19)
[2019-10-21] MEDS ORDERED: PIPERACILLIN/TAZOBACTAM 4.5 GM/120 ML BAG IV STA (23:24)
[2019-10-21] MEDS ORDERED: METOPROLOL TARTRATE 1 MG/ML VIAL IV STA (23:45)
--- NOTE | 2019-10-21 23:45 | History & Physical Report ---
Date of Service October 21, 2019 Assessment & Plan (1) Obstruction of small intestine due to peritoneal adhesion: HTN, elevated secondary to discomfort ARF on CRI secondary to illness CHF (TTE 60 to 64%, 2016), patient on the dry side CAD status post CABG PVD as per records hx CVA Epistaxis secondary to traumatic unsuccessful NGT insertion hyperlipidemia on statin Rx COPD, pulmonary status at baseline Hyperglycemia, likely prediabetes, hemoglobin A1c of 6.1 from 2019 past tobacco abuse Medical telemetry given uncontrolled BP Bowel rest Surgery consult RE bowel obstruction (Patient already evaluated by Dr. Robertson at the ER who also recommends antibiotic coverage as well.) Monitor creatinine response to IVF Update hemoglobin A1c Trend H&H, appropriate to hold patient's home Plavix for now given epistaxis DVT prophylaxis. SCDs RE epistaxis Full code Text document was generated using [employer] voice recognition software. It may contain grammatical or spelling errors. Kindly contact undersigned for clarification of any documentation item in question. History of Present Illness Chief Complaint: Abdominal pain Primary Care Provider: Luis Armando Syed DO History obtained from patient and records. History somewhat limited from patient secondary to hearing impairment. Medical history significant for CHF (TTE 60 to 64%, 2016), CAD status post CABG, PVD status post surgery, CVA, hypertension, hyperlipidemia, COPD, CRI (baseline creatinine 1.5), BPH, solitary kidney as per records, hx ESBL E. coli UTI, past tobacco abuse. Last confinement September 2018 for sepsis secondary to complicated UTI. 2 days history of constipation. This afternoon patient noted achy generalized abdominal pain with nausea and patrice sis. Stools are a little loose. No chest pain, no S OB. No fever, no chills. Patient consulted ER for evaluation. Epistaxis following unsuccessful attempts NGT insertion for bowel obstruction. Patient currently refusing reattempts of NGT insertion. 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 Allergies Allergy/AdvReac Type Severity Reaction Status Date / Time aspirin AdvReac Intermediate RELAXES Verified 06/13/19 14:35 RECTUM atorvastatin AdvReac Intermediate RELAXED Verified 06/13/19 14:35 RECTAL SPHINCTER Home Medications Home Medications Medication Instructions Recorded Confirmed Type allopurinol 100 mg PO QAM 07/13/18 10/21/19 History clopidogrel 75 mg PO QPM 07/13/18 10/21/19 History famotidine 20 mg PO BID 07/13/18 10/21/19 History metoprolol tartrate 50 mg PO BID 07/13/18 10/21/19 History multivitamin 1 tab PO QAM 07/13/18 10/21/19 History pravastatin 40 mg PO QPM 07/13/18 10/21/19 History trazodone 50 mg PO HS 07/13/18 10/21/19 History acetaminophen [Tylenol Arthritis 1,300 mg PO Q12H PRN 08/26/18 10/21/19 History Pain] sennosides [Vegetable Laxative] 8.6 mg PO BID PRN 08/26/18 10/21/19 History amlodipine [Norvasc] 10 mg PO QPM 10/13/18 10/21/19 History cyanocobalamin (vitamin B-12) 100 mcg PO QAM 10/13/18 10/21/19 History diclofenac sodium [Voltaren] 2 g TOPICAL BID PRN 10/13/18 10/21/19 History Oxygen Home #1 ea 01/06/19 06/13/19 Rx budesonide-formoterol HFA 160 2 puffs INH BID #10.2 gm 03/21/19 10/21/19 Rx mcg-4.5 mcg/actuation aerosol inhaler finasteride [Proscar] 5 mg PO QPM 04/27/19 10/21/19 History turmeric 400 mg PO QAM 04/27/19 10/21/19 History hydralazine 10 mg tablet 10 mg PO BID tab 06/13/19 10/21/19 History Past Med/Surg History Surgical History (Updated 04/27/19 @ 10:05 by Valery Peña RN) History of bronchoscopy x2 History of cardiac cath x2----no stents History of colonoscopy History of tooth extraction all upper teeth Status post abdominal aortic aneurysm (AAA) repair (Chronic) 1998 @ [facility] Status post carotid endarterectomy (Chronic) 09/30/2013--left @ [facility] Status post coronary artery bypass graft (Chronic) 1998 @ [facility] Status post nephrectomy (Chronic) left atrophic, nonfunctional associated with hypertension Status post transurethral resection of prostate (Chronic) Social History Preferred Language: Syriac Communication Ability: Effective Visual Impairment: No Limitations 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 Beliefs That Will Affect Care: Latter-Day Latter-Day Beliefs: yazidism Current Living Situation: Spouse and Family Current Living Situation Comment: with and sister Feels Safe at Home: Yes Safety Concerns: Feels Safe At This Time Smoking Status: Former smoker Tobacco Type: cigarettes ; Cigarettes Per Day: 20-40 ; Smoking End Date: 20 years ago ; Second Hand Exposure: No ; Hx Alcohol Use: Yes Alcohol type: beer Hx Substance Use: No Review of Systems Review of Systems: As per HPI, all 10 systems reviewed, all other ROS negative Physical Exam Physical Exam: GENERAL: uncomfortable, obese, slightly hard of hearing, no respiratory distress SKIN: Normal color, warm HEENT: [place] palpebral conjunctivae, no ptosis, dried blood clots right nostril/dried blood nasolabial fold, dry buccal mucosa NECK : Supple, short neck, no tenderness CHEST : Decreased breath sounds, no tenderness HEART : Tachycardic, no obvious murmurs ABDOMEN: Marked distention, central abdominal tenderness EXTREMITIES : Minimal LE swelling, no LE tenderness, no other conspicuous deformities noted NEUROLOGIC : Coherent, no facial asymmetry, slightly hard of hearing, gait and stance not assessed Results & Data Results & Data ([facility]) Vital Signs (Past 12 Hours) Vital Signs Temp Pulse Pulse Resp BP BP Pulse Ox 10/21/19 23:01 110 H 19 10/21/19 23:00 108 H 21 143/94 H 10/21/19 22:30 98 H 17 90 10/21/19 22:01 98 H 17 10/21/19 22:00 98 H 17 119/82 10/21/19 20:51 89 18 124/87 93 10/21/19 19:24 36.9 C 97 H 20 117/86 92 Laboratory Results Laboratory Results WBC 13.74 K/uL (4.8-10.8) H 10/21/19 20:43 RBC 5.75 M/uL (4.7-6.1) 10/21/19 20:43 Hgb 18.3 g/dL (14.0-18.0) H 10/21/19 20:43 Hct 55.2 % (42-52) H 10/21/19 20:43 MCV 96.0 fL (80-100) 10/21/19 20:43 MCH 31.8 pg (25-34) 10/21/19 20: MCHC 33.2 g/dL (32-36) 10/21/19 20:43 RDW Std Deviation 47.6 fL (36.4-46.3) H 10/21/19 20: RDW Coeff of Ketan 13.6 % (11.5-14.5) 10/21/19 20:43 Plt Count 192 K/uL (130-400) 10/21/19 20:43 MPV 10.0 fL (7.4-10.4) 10/21/19 20:43 Immature Gran % (Auto) 0.1 % 10/21/19 20:43 Neut % (Auto) 81.6 % 10/21/19 20:43 Lymph % (Auto) 10.5 % 10/21/19 20:43 [place] % (Auto) 7.3 % 10/21/19 20:43 Eos % (Auto) 0.2 % 10/21/19 20:43 Baso % (Auto) 0.3 % 10/21/19 20:43 Immature Gran # (Auto) 0.02 K/uL (0.00-0.02) 10/21/19 20: Neut # (Auto) 11.21 K/uL (1.4-6.5) H 10/21/19 20:43 Lymph # (Auto) 1.44 K/uL (1.2-3.4) 10/21/19 20:43 [place] # (Auto) 1.00 K/uL (0.11-0.59) H 10/21/19 20:43 Eos # (Auto) 0.03 K/uL (0-0.5) 10/21/19 20:43 Baso # (Auto) 0.04 K/uL (0-0.2) 10/21/19 20:43 Sodium 136 mmol/L (136-145) 10/21/19 20:43 Potassium 4.2 mmol/L (3.5-5.1) 10/21/19 20:43 Chloride 104 mmol/L (98-107) 10/21/19 20:43 Carbon Dioxide 26 mmol/L (21-32) 10/21/19 20:43 Anion Gap 6.0 (3-11) 10/21/19 20:43 BUN 24 mg/dl (7-18) H 10/21/19 20:43 Creatinine 1.65 mg/dl (0.6-1.4) H 10/21/19 20:43 Est Cr Clr Drug Dosing 44.7 ml/min 10/21/19 20:43 Est GFR ( Amer) 47.7 10/21/19 20:43 Est GFR (Non-Af Amer) 41.1 10/21/19 20:43 BUN/Creatinine Ratio 14.5 (10-20) 10/21/19 20:43 Glucose 147 mg/dl (70-99) H 10/21/19 20:43 Calcium 10.4 mg/dl (8.5-10.1) H 10/21/19 20:43 Magnesium 2.0 mg/dl (1.8-2.4) 10/21/19 20:43 Total Bilirubin 0.3 mg/dl (0.2-1) 10/21/19 20:43 AST 32 U/L (15-37) 10/21/19 20:43 ALT 80 U/L (12-78) H 10/21/19 20:43 Alkaline Phosphatase 99 U/L (45-117) 10/21/19 20:43 Total Protein 7.7 gm/dl (6.4-8.2) 10/21/19 20:43 Albumin 3.7 gm/dl (3.4-5.0) 10/21/19 20:43 Globulin 4.0 gm/dl (2.5-4.0) 10/21/19 20:43 Albumin/Globulin Ratio 0.9 (0.9-2) 10/21/19 20:43 Lipase 147 U/L (73-393) 10/21/19 20:[address] abdomen pelvis initial read: High-grade small bowel obstruction with transition point right paramedian upper anterior abdomen. Suspect adhesions to abdominal wall. No perforation. Cholelithiasis and hepatic steatosis. Left nephrectomy. Chest x-ray as per my interpretation atelectasis EKG as per my interpretation : Rate 100, NSR, normal axis, septal infarct, T wave abnormalities on the lateral and septal leads
[2019-10-22] MEDS ORDERED: PROMETHAZINE HCL 12.5 MG in SODIUM CHLORIDE 0.9% 50 ML IV PRN (01:29)
[2019-10-22 02:02] LABS: Hematocrit (blood only) 53.1 % (42-52); Hemoglobin 17.9 g/dL (14.0-18.0)
[2019-10-22] MEDS ORDERED: METOPROLOL TARTRATE 1 MG/ML VIAL IV STA (02:06)
[2019-10-22] MEDS: SODIUM CHLORIDE 0.9% 1000ML 1,000 ML IV SCH ×2 (02:32→14:55)
[2019-10-22] MEDS: AMLODIPINE BESYLATE 5 MG TAB PO SCH (02:59)
[2019-10-22] MEDS: HydrALAZINE 10 MG TAB PO SCH ×3 (02:59→20:10)
[2019-10-22] MEDS: DOCUSATE SODIUM/SENNA 50/8.6MG TAB PO SCH ×2 (02:59→09:40)
[2019-10-22] MEDS ORDERED: PIPERACILLIN/TAZOBACTAM 3.375 GM in DEXTROSE 5% 100 ML IV SCH (04:00)
[2019-10-22 06:49] LABS: Appearance Urine Clear (Clear); Bacteria Urine Automated Negative (Negative); Bilirubin Urine Negative (Negative); Blood Urine Negative (Negative); Cast Urine Automated 0 /lpf (0-5); Color Urine Yellow; Glucose Urine UA Negative (Negative); Ketones Urine Trace (Negative); Leukocyte Esterase Urine Negative (Negative); Nitrite Urine Negative (Negative); Protein Urine 2+ (Negative); RBC Urine Automated 0-4 /hpf (0-4); Specific Gravity Urine 1.034 (1.000-1.030); Urobilinogen Urine Negative (Negative)
--- NOTE | 2019-10-22 07:17 | CT Scan Report ---
CT abd pelvis wo con CT DOSE: 1318.38 mGy.cm HISTORY: Nausea. Vomiting. vomiting, abd pain, prior aortic repair, left neph TECHNIQUE: Multiaxial CT images of the abdomen and pelvis were performed without contrast. A dose lo wering technique was utilized adhering to the principles of ALARA. COMPARISON STUDY: 10/13/2018 FINDINGS: Prior left nephrectomy. Lung bases show minimal chronic interstitial prominence. Fatty replacement of the liver. Several small gallstones. Normal caliber bile ducts. The right kidney is negative for hydronephrosis or nephrocalcinosis. The adrenal glands show minimal hyperplastic change. Mild distention and fluid-filled loops of small bowel in the left central abdomen. There is a transition point of the small bowel distention in the right central abdominal region altho ugh an obstructing lesion is not present. Possibility of adhesions is considered. IMPRESSION: 1. partial small bowel obstructive change. 2. Probable adhesions, although no obstructing mass is identified. 3. Prior left nephrectomy. 4. Several small gallstones. 5. Fatty replacement of the liver. ACT 112: Negative or not required by law. The above report was generated using voice recognition software. It may contain grammatical, syntax or spelling errors. Electronically signed by: Juan Carson M.D. 10/22/2019 7:16 AM
--- NOTE | 2019-10-22 07:20 | XRay Report ---
XR chest 1V portable CLINICAL HISTORY: renal failure COMPARISON STUDY: No previous studies for comparison. FINDINGS: There are postsurgical changes of midline sternotomy. There is radiographic evidence of emp hysema. Subcentimeter nodules at the right lung base were present on the prior studies are felt to be postinflammatory. There are chronic pleural-parenchymal opacities at the left lung base.[ IMPRESSION: Emphysema. No acute findings. ACT 112: Negative or not required by law. Electronically signed by: Manjinder Booker M.D. 10/22/2019 7:19 AM
--- NOTE | 2019-10-22 07:35 | Hospitalist Progress Note ---
Date of Service October 22, 2019 Assessment & Plan Admission and Anticipated Discharge Date Admission Date: October 21, 2019 Results & Data Results & Data ([facility]) Vital Signs (Past 12 Hours) Vital Signs Temp Pulse Pulse Resp BP BP BP 10/22/19 07:15 96 H 10/22/19 03:13 85 10/22/19 02:53 83 151/89 H 10/22/19 01:30 37.4 C 93 H 22 175/85 H 10/22/19 01:00 103 H 17 162/90 H 10/22/19 00:09 102 H 149/81 H 10/21/19 23:56 10/21/19 23:55 10/21/19 23:01 110 H 19 10/21/19 23:00 108 H 21 143/94 H 10/21/19 22:30 98 H 17 10/21/19 22:01 98 H 17 10/21/19 22:00 98 H 17 119/82 10/21/19 20:51 89 18 124/87 Pulse Ox 10/22/19 07:15 10/22/19 03:13 10/22/19 02:53 10/22/19 01:30 96 10/22/19 01:00 10/22/19 00:09 10/21/19 23:56 94 10/21/19 23:55 84 L 10/21/19 23:01 10/21/19 23:00 10/21/19 22:30 90 10/21/19 22:01 10/21/19 22:00 10/21/19 20:51 93 Laboratory Results 10/22/19 10/22/19 10/22/19 Range/Units 05:30 01:44 01:44 WBC (4.8-10.8) K/uL RBC (4.7-6.1) M/uL Hgb 17.9 (14.0-18.0) g/dL Hct 53.1 H (42-52) % MCV (80-100) fL MCH (25-34) pg MCHC (32-36) g/dL RDW Std Deviation (36.4-46.3) fL RDW Coeff of Ketan (11.5-14.5) % Plt Count (130-400) K/uL MPV (7.4-10.4) fL Immature Gran % (Auto) % Neut % (Auto) % Lymph % (Auto) % [place] % (Auto) % Eos % (Auto) % Baso % (Auto) % Immature Gran # (Auto) (0.00-0.02) K/uL Neut # (Auto) (1.4-6.5) K/uL Lymph # (Auto) (1.2-3.4) K/uL [place] # (Auto) (0.11-0.59) K/uL Eos # (Auto) (0-0.5) K/uL Baso # (Auto) (0-0.2) K/uL Sodium (136-145) mmol/L Potassium (3.5-5.1) mmol/L Chloride (98-107) mmol/L Carbon Dioxide (21-32) mmol/L Anion Gap (3-11) BUN (7-18) mg/dl Creatinine (0.6-1.4) mg/dl Est Cr Clr Drug Dosing ml/min Est GFR ( Amer) Est GFR (Non-Af Amer) BUN/Creatinine Ratio (10-20) Glucose (70-99) mg/dl Calcium (8.5-10.1) mg/dl Magnesium (1.8-2.4) mg/dl Total Bilirubin (0.2-1) mg/dl AST (15-37) U/L ALT (12-78) U/L Alkaline Phosphatase (45-117) U/L Total Protein (6.4-8.2) gm/dl Albumin (3.4-5.0) gm/dl Globulin (2.5-4.0) gm/dl Albumin/Globulin Ratio (0.9-2) Lipase (73-393) U/L Urine Color Yellow Urine Appearance Clear (Clear) Urine pH 5.0 (4.5-7.5) Ur Specific [place] 1.034 H (1.000-1.030) Urine Protein 2+ H (Negative) Urine Glucose (UA) Negative (Negative) Urine Ketones Trace H (Negative) Urine Blood Negative (Negative) Urine Nitrite Negative (Negative) Urine Bilirubin Negative (Negative) Urine Urobilinogen Negative (Negative) Ur Leukocyte Esterase Negative (Negative) Urine WBC (Auto) 1-5 (0-5) /hpf Urine RBC (Auto) 0-4 (0-4) /hpf U Hyaline Cast (Auto) 0 (0-5) /lpf U Epithel Cells (Auto) 10-20 H (0-5) /lpf Urine Bacteria (Auto) Negative (Negative) Urine Yeast Not Reportable Blood Type A Positive Antibody Screen NEGATIVE 10/21/19 10/21/19 Range/Units 20:43 20:43 WBC 13.74 H (4.8-10.8) K/uL RBC 5.75 (4.7-6.1) M/uL Hgb 18.3 H (14.0-18.0) g/dL Hct 55.2 H (42-52) % MCV 96.0 (80-100) fL MCH 31.8 (25-34) pg MCHC 33.2 (32-36) g/dL RDW Std Deviation 47.6 H (36.4-46.3) fL RDW Coeff of Ketan 13.6 (11.5-14.5) % Plt Count 192 (130-400) K/uL MPV 10.0 (7.4-10.4) fL Immature Gran % (Auto) 0.1 % Neut % (Auto) 81.6 % Lymph % (Auto) 10.5 % [place] % (Auto) 7.3 % Eos % (Auto) 0.2 % Baso % (Auto) 0.3 % Immature Gran # (Auto) 0.02 (0.00-0.02) K/uL Neut # (Auto) 11.21 H (1.4-6.5) K/uL Lymph # (Auto) 1.44 (1.2-3.4) K/uL [place] # (Auto) 1.00 H (0.11-0.59) K/uL Eos # (Auto) 0.03 (0-0.5) K/uL Baso # (Auto) 0.04 (0-0.2) K/uL Sodium 136 (136-145) mmol/L Potassium 4.2 (3.5-5.1) mmol/L Chloride 104 (98-107) mmol/L Carbon Dioxide 26 (21-32) mmol/L Anion Gap 6.0 (3-11) BUN 24 H (7-18) mg/dl Creatinine 1.65 H (0.6-1.4) mg/dl Est Cr Clr Drug Dosing 44.7 ml/min Est GFR ( Amer) 47.7 Est GFR (Non-Af Amer) 41.1 BUN/Creatinine Ratio 14.5 (10-20) Glucose 147 H (70-99) mg/dl Calcium 10.4 H (8.5-10.1) mg/dl Magnesium 2.0 (1.8-2.4) mg/dl Total Bilirubin 0.3 (0.2-1) mg/dl AST 32 (15-37) U/L ALT 80 H (12-78) U/L Alkaline Phosphatase 99 (45-117) U/L Total Protein 7.7 (6.4-8.2) gm/dl Albumin 3.7 (3.4-5.0) gm/dl Globulin 4.0 (2.5-4.0) gm/dl Albumin/Globulin Ratio 0.9 (0.9-2) Lipase 147 (73-393) U/L Urine Color Urine Appearance (Clear) Urine pH (4.5-7.5) Ur Specific [place] (1.000-1.030) Urine Protein (Negative) Urine Glucose (UA) (Negative) Urine Ketones (Negative) Urine Blood (Negative) Urine Nitrite (Negative) Urine Bilirubin (Negative) Urine Urobilinogen (Negative) Ur Leukocyte Esterase (Negative) Urine WBC (Auto) (0-5) /hpf Urine RBC (Auto) (0-4) /hpf U Hyaline Cast (Auto) (0-5) /lpf U Epithel Cells (Auto) (0-5) /lpf Urine Bacteria (Auto) (Negative) Urine Yeast Blood Type Antibody Screen Medications Administered Current Inpatient Medications Allopurinol (Zyloprim) 100 mg PO QAM NATALYA Stop: 11/21/19 08:59 Amlodipine Besylate (Norvasc) 10 mg PO QPM NATALYA Stop: 11/21/19 02:14 Last Admin: 10/22/19 02:59 Dose: 10 mg Documented by: Cyanocobalamin (Vitamin B-12) 100 mcg PO QAM NATALYA Stop: 11/21/19 08:59 Famotidine (Pepcid) 20 mg PO BID NATALYA Stop: 11/21/19 08:59 Finasteride (Proscar) 5 mg PO QPM NATALYA Stop: 11/21/19 20:59 Fluticasone/Vilanterol (Breo Ellipta 100/25 Mcg Inh) 1 puffs INH DAILY [facility] Stop: 11/21/19 08:59 Hydralazine HCl (Apresoline) 10 mg PO BID [facility] Stop: 11/21/19 01:28 Last Admin: 10/22/19 02:59 Dose: 10 mg Documented by: Sodium Chloride (Nss 1000ml) 1,000 mls @ 80 mls/hr IV .[id number] NATALYA Stop: 11/21/19 01:28 Last Admin: 10/22/19 02:32 Dose: 80 mls/hr Documented by: Promethazine HCl 12.5 mg/ (Sodium Chloride) 50.5 mls @ 202 mls/hr IV Q6H PRN PRN Reason: Nausea And Vomiting Stop: 11/21/19 01:28 Piperacillin Sod/Tazobactam (Sod 3.375 gm/ Dextrose) 115 mls @ 28.75 mls/hr IV Q8H [facility]; Protocol Stop: 11/01/19 03:59 Last Admin: 10/22/19 04:18 Dose: 28.8 mls/hr Documented by: Metoprolol Tartrate (Lopressor) 50 mg PO BID [facility] Stop: 11/21/19 08:59 Miscellaneous Information (Consult) 1 ea N/A UD PRN PRN Reason: Consult Stop: 11/20/19 23:18 Multivitamins (Multivitamin Tab) 1 tab PO QAM [facility] Stop: 11/21/19 08:59 Pravastatin Sodium (Pravachol) 40 mg PO QPM NATALYA Stop: 11/21/19 20:59 Senna/Docusate Sodium (Senokot S) 1 tab PO QAM NATALYA Stop: 11/21/19 01:28 Last Admin: 10/22/19 02:59 Dose: 1 tab Documented by: Trazodone HCl (Desyrel) 50 mg PO HS [facility] Stop: 11/21/19 20:59
[2019-10-22 08:00] LABS: Basophils # (auto) 0.02 K/uL (0-0.2); Basophils % (auto) 0.2 %; Eosinophils # (auto) 0.03 K/uL (0-0.5); Eosinophils % (auto) 0.2 %; Hematocrit (blood only) 50.6 % (42-52); Hemoglobin 16.9 g/dL (14.0-18.0); Immature Granulocytes # (auto) 0.02 K/uL (0.00-0.02); Immature Granulocytes % (auto) 0.2 %; Lymphocytes # (auto) 1.51 K/uL (1.2-3.4); Lymphocytes % (auto) 11.8 %; Mean Corpuscular Hemoglobin 31.9 pg (25-34); Mean Corpuscular Hgb Conc 33.4 g/dL (32-36); Mean Corpuscular Volume 95.7 fL (80-100); Mean Platelet Volume 10.1 fL (7.4-10.4); Monocytes # (auto) 1.85 K/uL (0.11-0.59); Monocytes % (auto) 14.4 %; Neutrophils # (auto) 9.41 K/uL (1.4-6.5); Neutrophils % (auto) 73.2 %; Platelet Count 173 K/uL (130-400); RDW Coefficient of Variation 13.5 % (11.5-14.5); RDW Standard Deviation 47.2 fL (36.4-46.3); Red Blood Count 5.29 M/uL (4.7-6.1); White Blood Count 12.84 K/uL (4.8-10.8)
[2019-10-22 08:15] LABS: Estimated Average Glucose 123 mg/dl; Hemoglobin A1C 5.9 % (4.5-5.6)
[2019-10-22 08:53] LABS: BUN Creatinine Ratio 15.8 (10-20); Calcium 6.4 mg/dl (8.5-10.1); Est GFR (African American) 77.9; Est GFR (Non-African American) 67.2; Potassium 2.7 mmol/L (3.5-5.1)
[2019-10-22] MEDS ORDERED: MULTIVITAMIN TAB PO SCH (09:00)
[2019-10-22] MEDS ORDERED: METOPROLOL TARTRATE 50 MG TAB PO SCH (09:00)
[2019-10-22] MEDS: CYANOCOBALAMIN (VITAMIN B-12) 100 MCG TABLET PO SCH (09:41)
[2019-10-22] MEDS: allopurinoL 100 MG TAB PO SCH (09:41)
[2019-10-22] MEDS: FAMOTIDINE 20 MG TAB PO SCH (09:41)
[2019-10-22] MEDS: FLUTICASONE/VILANTEROL 100/25MCG 14 PUFFS/INHALER INH SCH (09:42)
[2019-10-22] MEDS ORDERED: POTASSIUM CHLORIDE 20 MEQ TABCR PO STA (09:56)
[2019-10-22 10:56] LABS: BUN Creatinine Ratio 14.6 (10-20); Calcium 9.7 mg/dl (8.5-10.1); Creatinine Clr Calc Pharmacy 46.1 ml/min; Est GFR (African American) 49.5; Est GFR (Non-African American) 42.7; Magnesium 1.9 mg/dl (1.8-2.4); Potassium 4.2 mmol/L (3.5-5.1)
[2019-10-22] MEDS ORDERED: ONDANSETRON INJ 2 MG/ML 2 ML VIAL IV ONE (11:32)
[2019-10-22] MEDS ORDERED: MoRPHine SULFATE 4 MG/ML 1 ML CARP\\VIAL IV STA (11:32)
[2019-10-22] MEDS: PIPERACILLIN/TAZOBACTAM 4.5 GM in DEXTROSE 5% 100 ML IV SCH ×2 (11:51→20:19)
--- NOTE | 2019-10-22 12:05 | Surgery Progress Note ---
Date of Service pt is still not pass gas or BM yet, the abdominal pain is same yesterday, one time vomiting, no fever, normal labs October 22, 2019 Assessment & Plan (1) SBO (small bowel obstruction): pt is a 69 year-old male who presents to ER with acute abdominal pain, IMP: SBO, Plan, I agree with hospitalist will admit to hospital for conservative treatment, NPO, IV fluid, control pain, WBC high, star cipro 400mg iv bid, repeat labs in am,KUB in am, NG tube insertion, no emergent surgical indication now, will F/U thanks, pt agrees with the plan, I answered all questions, 10/22/2019 12:02PM stable, continue treatment, I recommend to place NG tube, but pt refused it, even , pt dose not want NG tube, no emergent surgery now, I also indication pt may need surgery if he is not getting better, he understood, he will talk to his to make decision, I answered all questions, repeat KUB in am, will F/U Review of Systems Constitutional: as per Subjective / HPI Eyes: as per Subjective / HPI Ear, Nose, Mouth, Throat: as per Subjective / HPI Respiratory: as per Subjective / HPI COPD, pulmonary nodule Cardiovascular: as per Subjective / HPI Additional Comments: CAD, HTNPVD Gastrointestinal: as per Subjective / HPI Genitourinary: + as per Subjective / HPI and + problem reported (urinary ret ention, acute renal failure) Musculoskeletal: as per Subjective / HPI Integumentary: as per Subjective / HPI Neurologic: CVA Psychiatric: as per Subjective / HPI Endocrine: as per Subjective / HPI Hematologic / Lymphatic: as per Subjective / HPI Allergy / Immunological: as per Subjective / HPI Physical Exam Constitutional: WD/WN, vitals as above well developed and well nourished Eyes: PERRL, conjunctivae normal, anicteric sclerae ENMT: external ear and nose normal, oropharynx normal Neck: trachea midline, no thyromegaly Respiratory: normal respiratory effort, lungs clear to auscultation normal respiratory effort Cardiovascular: RRR, no murmur, no edema Rate/Rhythm: regular rate and regular rhythm Heart Sounds: normal S1 and normal S2 Gastrointestinal (Abdomen): normal bowel sounds, soft, nontender, no hepatosplenomegaly Percussion/Palpation: abdomen soft mild tenderness, with distend, BS + Musculoskeletal: no cyanosis or clubbing, extremities motor strength 5/5 Skin: no rashes, warm and dry Neurologic: patellar DTR's 2+ bilat, sensation intact Psychiatric: Orientation: alert and oriented x 3 Results & Data Vital Signs (Past 12 Hours) Vital Signs Temp Pulse Pulse Resp BP BP BP 10/22/19 08:04 37.1 C 88 20 178/98 H 176/74 H 10/22/19 07:15 96 H 10/22/19 03:13 85 10/22/19 02:53 83 151/89 H 10/22/19 01:30 37.4 C 93 H 22 175/85 H 10/22/19 01:00 103 H 17 162/90 H 10/22/19 00:09 102 H 149/81 H Pulse Ox 10/22/19 08:04 98 10/22/19 07:15 10/22/19 03:13 10/22/19 02:53 10/22/19 01:30 96 10/22/19 01:00 10/22/19 00:09 Laboratory Results Abnormal lab results 10/21/19 10/21/19 10/22/19 Range/Units 20:43 20:43 01:44 WBC 13.74 H (4.8-10.8) K/uL Hgb 18.3 H (14.0-18.0) g/dL Hct 55.2 H 53.1 H (42-52) % RDW Std Deviation 47.6 H (36.4-46.3) fL Neut # (Auto) 11.21 H (1.4-6.5) K/uL [place] # (Auto) 1.00 H (0.11-0.59) K/uL Potassium (3.5-5.1) mmol/L Chloride (98-107) mmol/L Carbon Dioxide (21-32) mmol/L BUN 24 H (7-18) mg/dl Creatinine 1.65 H (0.6-1.4) mg/dl Glucose 147 H (70-99) mg/dl Hemoglobin A1c (4.5-5.6) % Calcium 10.4 H (8.5-10.1) mg/dl ALT 80 H (12-78) U/L Ur Specific [place] (1.000-1.030) Urine Protein (Negative) Urine Ketones (Negative) U Epithel Cells (Auto) (0-5) /lpf 10/22/19 10/22/19 10/22/19 Range/Units 05:30 07:35 07:35 WBC 12.84 H (4.8-10.8) K/uL Hgb (14.0-18.0) g/dL Hct (42-52) % RDW Std Deviation 47.2 H (36.4-46.3) fL Neut # (Auto) 9.41 H (1.4-6.5) K/uL [place] # (Auto) 1.85 H (0.11-0.59) K/uL Potassium 2.7 L D (3.5-5.1) mmol/L Chloride 109 H (98-107) mmol/L Carbon Dioxide 19 L (21-32) mmol/L BUN (7-18) mg/dl Creatinine (0.6-1.4) mg/dl Glucose 298 H (70-99) mg/dl Hemoglobin A1c (4.5-5.6) % Calcium 6.4 L D (8.5-10.1) mg/dl ALT (12-78) U/L Ur Specific [place] 1.034 H (1.000-1.030) Urine Protein 2+ H (Negative) Urine Ketones Trace H (Negative) U Epithel Cells (Auto) 10-20 H (0-5) /f 10/22/19 10/22/19 Range/Units 07:35 10:09 WBC (4.8-10.8) K/uL Hgb (14.0-18.0) g/dL Hct (42-52) % RDW Std Deviation (36.4-46.3) fL Neut # (Auto) (1.4-6.5) K/uL [place] # (Auto) (0.11-0.59) K/uL Potassium (3.5-5.1) mmol/L Chloride (98-107) mmol/L Carbon Dioxide (21-32) mmol/L BUN 23 H (7-18) mg/dl Creatinine 1.60 H D (0.6-1.4) mg/dl Glucose 136 H (70-99) mg/dl Hemoglobin A1c 5.9 H (4.5-5.6) % Calcium (8.5-10.1) mg/dl ALT (12-78) U/L Ur Specific [place] (1.000-1.030) Urine Protein (Negative) Urine Ketones (Negative) U Epithel Cells (Auto) (0-5) /lpf
[2019-10-22 13:46] LABS: Basophils # (auto) 0.02 K/uL (0-0.2); Basophils % (auto) 0.2 %; Eosinophils # (auto) 0.01 K/uL (0-0.5); Eosinophils % (auto) 0.1 %; Hematocrit (blood only) 49.5 % (42-52); Hemoglobin 16.6 g/dL (14.0-18.0); Immature Granulocytes # (auto) 0.03 K/uL (0.00-0.02); Immature Granulocytes % (auto) 0.3 %; Lymphocytes # (auto) 0.92 K/uL (1.2-3.4); Lymphocytes % (auto) 8.1 %; Mean Corpuscular Hemoglobin 32.2 pg (25-34); Mean Corpuscular Volume 95.9 fL (80-100); Mean Platelet Volume 9.9 fL (7.4-10.4); Monocytes # (auto) 1.87 K/uL (0.11-0.59); Monocytes % (auto) 16.5 %; Neutrophils # (auto) 8.46 K/uL (1.4-6.5); Neutrophils % (auto) 74.8 %; Platelet Count 153 K/uL (130-400); RDW Coefficient of Variation 13.6 % (11.5-14.5); RDW Standard Deviation 47.7 fL (36.4-46.3); Red Blood Count 5.16 M/uL (4.7-6.1); White Blood Count 11.31 K/uL (4.8-10.8)
[2019-10-22 14:09] LABS: Base Excess ABG -0.1 mEq/L (-9-1.8); HCO3 ABG 25 mmol/L (19-24); Oxygen Saturation ABG 92.9 % (90-95); PCO2 ABG 42 mmHg (35-46); PO2 ABG 65 mmHg (80-95); pH ABG 7.39 (7.35-7.45)
[2019-10-22 14:09] LABS: Mean Corpuscular Hgb Conc 33.5 g/dL (32-36)
[2019-10-22 14:10] LABS: Allen Test Pos (Pos)
[2019-10-22] MEDS ORDERED: MoRPHine SULFATE 4 MG/ML 1 ML CARP\\VIAL IV PRN (17:49)
--- NOTE | 2019-10-22 17:59 | Hospitalist Progress Note ---
Date of Service October 22, 2019 Assessment & Plan (1) SBO (small bowel obstruction): Unable to place NG tube. Continue conservative management. Cont Zosyn with high risk patient. Currently giving PRN morphine and antiemetics. Tachycardia and increased oxygen needs are concerning. The patient is high risk to progress to a clinically severe illness. Per surgical notes, the patient understands the risk of clinical worsening without the NG tube in place. He was transferred to the PCU, and remains on Zosyn as he is a high risk patient. Davidson placed. Cont supportive care. NPO. (2) Hypertension: uncontrolled 2/2 pain and nausea. Cont supportive care efforts. Cont home medications. (3) Gout: will hold allopurinol to minimized pill burden. (4) CKD (chronic kidney disease), stage III: at baseline. Avoid nephrotoxic substances as able. (5) Coronary artery disease: chronic, stable. No chest pain. Cont medical management of CAD and CVD per home regimen. (6) Cerebrovascular disease: Cont Plavix and pravastatin per home regimen. (7) DVT prophylaxis: Heparin Full code Dispo-pending clinical improvement. Transferred to PCU today. Janet Patel DO [facility] Hospitalist Admission and Anticipated Discharge Date Admission Date: October 21, 2019 Subjective 69 yo M with h/o 5 strokes in the past, last was 2015. He has subsequent residual expressive aphasia and some word finding difficulty. He also has some difficulties with use of his right hand typically. He has had persistent generalized abdominal pain overnight that he feels is slightly better today, however, he still reports pain and some nausea. Attempts to place an NGT overnight were unsuccessful resulting in epistaxis (pt on Deric vix) and of the procedure. His abdomen is firm, distended, tender, and no bowel sounds can be heard. I contacted Dr. Fields who saw the patient right away and strongly recommended NG tube placement. The patient declined. He became tachycardic and more hypoxic so he was moved to the PCU. 4L via NC oxygen supplementation was applied. He has a h/o COPD and reports home use of oxygen. I did discuss with his the situation and explained why the NGT placement was indicated. She verbalized understanding and agreed with the thinking. Another unsuccessful attempt was made once he arrived into the PCU, as the patient became very combative with staff when they attempted to placed the NGT. Again, the procedure was aborted. I left another message for Dr. Fields explaining what we had attempted and that it was unsuccessful in an effort to review other options. Review of Systems Review of Systems: All systems reviewed & are unremarkable except as noted in Subjective Physical Exam Physical Exam: CONSTITUTIONAL: WNWD, vitals as above, generally ill-appearing EYES: pupils are equal and round bilaterally, normal conjunctivae, no scleral icterus ENT: external ear and nose normal, oropharynx clear, MMM RESPIRATORY: clear to auscultation bilaterally, no crackles, rales or wheezes, normal respiratory effort CARDIOVASCULAR: regular rate and rhythm, S1 and 2 heard without murmurs, gallops or rubs, no JVD, no peripheral edema GASTROINTESTINAL: pt was examined in a supine position, no bowel sounds could be auscultated, soft, general TTP, distension of abdomen MUSCULOSKELETAL: strength 5/5 throughout, head is normocephalic and atraumatic SKIN: warm and dry NEUROLOGIC: CN 2-12 grossly intact, normal cognition, normal speech but expressive aphasia and word finding difficulty are clear to me on exam, no tremor PSYCHIATRIC: alert cooperative and oriented to person, place and time. Results & Data Results & Data ([facility]) Vital Signs (Past 12 Hours) Vital Signs Temp Pulse Pulse Resp BP BP BP 10/22/19 08:04 37.1 C 88 20 178/98 H 176/74 H 10/22/19 07:15 96 H 10/22/19 03:13 85 10/22/19 02:53 83 151/89 H 10/22/19 01:30 37.4 C 93 H 22 175/85 H 10/22/19 01:00 103 H 17 162/90 H 10/22/19 00:09 102 H 149/81 H 10/21/19 23:56 10/21/19 23:55 Pulse Ox 10/22/19 08:04 98 10/22/19 07:15 10/22/19 03:13 10/22/19 02:53 10/22/19 01:30 96 10/22/19 01:00 10/22/19 00:09 10/21/19 23:56 94 10/21/19 23:55 84 L Laboratory Results Short CBC 10/21/19 10/22/19 10/22/19 Range/Units 20:43 01:44 07:35 WBC 13.74 H 12.84 H (4.8-10.8) K/uL Hgb 18.3 H 17.9 16.9 (14.0-18.0) g/dL Hct 55.2 H 53.1 H 50.6 (42-52) % Plt Count 192 173 (130-400) K/uL 10/22/19 Range/Units 13:39 WBC 11.31 H (4.8-10.8) K/uL Hgb 16.6 (14.0-18.0) g/dL Hct 49.5 (42-52) % Plt Count 153 (130-400) K/uL BMP 10/21/19 10/22/19 10/22/19 20:43 07:35 10:09 Sodium 136 139 137 Potassium 4.2 2.7 L D 4.2 D Chloride 104 109 H 106 Carbon Dioxide 26 19 L 24 BUN 24 H 17 23 H Creatinine 1.65 H 1.10 D 1.60 H D Glucose 147 H 298 H 136 H Calcium 10.4 H 6.4 L D 9.7 D Liver Function 10/21/19 Range/Units 20:43 Total Bilirubin 0.3 (0.2-1) mg/dl AST 32 (15-37) U/L ALT 80 H (12-78) U/L Alkaline Phosphatase 99 (45-117) U/L Albumin 3.7 (3.4-5.0) gm/dl Urine 10/22/19 Range/Units 05:30 Urine Color Yellow Urine Appearance Clear (Clear) Urine pH 5.0 (4.5-7.5) Ur Specific [place] 1.034 H (1.000-1.030) Urine Protein 2+ H (Negative) Urine Glucose (UA) Negative (Negative) Medications Administered Current Inpatient Medications Allopurinol (Zyloprim) 100 mg PO QAM [facility] Stop: 11/21/19 08:59 Last Admin: 10/22/19 09:41 Dose: 100 mg Documented by: Amlodipine Besylate (Norvasc) 10 mg PO QPM [facility] Stop: 11/21/19 02:14 Last Admin: 10/22/19 02:59 Dose: 10 mg Documented by: Cyanocobalamin (Vitamin B-12) 100 mcg PO QAM [facility] Stop: 11/21/19 08:59 Last Admin: 10/22/19 09:41 Dose: 100 mcg Documented by: Famotidine (Pepcid) 20 mg PO BID [facility] Stop: 11/21/19 08:59 Last Admin: 10/22/19 09:41 Dose: 20 mg Documented by: Finasteride (Proscar) 5 mg PO QPM [facility] Stop: 11/21/19 20:59 Fluticasone/Vilanterol (Breo Ellipta 100/25 Mcg Inh) 1 puffs INH DAILY [facility] Stop: 11/21/19 08:59 Last Admin: 10/22/19 09:42 Dose: 1 puffs Documented by: Hydralazine HCl (Apresoline) 10 mg PO BID [facility] Stop: 11/21/19 01:28 Last Admin: 10/22/19 09:40 Dose: 10 mg Documented by: Sodium Chloride (Nss 1000ml) 1,000 mls @ 80 mls/hr IV .[id number] [facility] Stop: 11/21/19 01:28 Last Admin: 10/22/19 14:55 Dose: 80 mls/hr Documented by: Promethazine HCl 12.5 mg/ (Sodium Chloride) 50.5 mls @ 202 mls/hr IV Q6H PRN PRN Reason: Nausea And Vomiting Stop: 11/21/19 01:28 Piperacillin Sod/Tazobactam (Sod 4.5 gm/ Dextrose) 120 mls @ 30 mls/hr IV Q8H [facility]; Protocol Stop: 11/01/19 11:59 Last Infusion: 10/22/19 15:54 Dose: Infused Documented by: Acetaminophen (Ofirmev) 1,000 mg in 100 mls @ 400 mls/hr IV Q8H [facility] Stop: 10/25/19 17:59 Metoprolol Tartrate (Lopressor) 50 mg PO BID [facility] Stop: 11/21/19 08:59 Last Admin: 10/22/19 09:40 Dose: 50 mg Documented by: Miscellaneous Information (Consult) 1 ea N/A UD PRN PRN Reason: Consult Stop: 11/20/19 23:18 Morphine Sulfate (Morphine Sulfate) 4 mg IV Q4H PRN PRN Reason: Severe Pain Stop: 11/05/19 17:48 Multivitamins (Multivitamin Tab) 1 tab PO QAM [facility] Stop: 11/21/19 08:59 Last Admin: 10/22/19 09:41 Dose: 1 tab Documented by: Pravastatin Sodium (Pravachol) 40 mg PO QPM [facility] Stop: 11/21/19 20:59 Trazodone HCl (Desyrel) 50 mg PO HS [facility] Stop: 11/21/19 20:59 (1) Hypertension Hypertension type: unspecified Qualified Code(s): I10 - Essential (primary) hypertension (2) Coronary artery disease Coronary Disease-Associated Artery/Lesion type: [place] artery [place] vs. transplanted heart: [place] heart Associated angina: without angina Qualified Code(s): I25.10 - Atherosclerotic heart disease of [place] coronary artery without angina pectoris
[2019-10-22] MEDS ORDERED: HydrALAZINE HCL 20 MG/ML VIAL IV PRN (18:11)
[2019-10-22] MEDS: ACETAMINOPHEN 1,000 MG/100 ML VIAL IV SCH (18:27)
[2019-10-22] MEDS ORDERED: LORazepam 1 MG/2 ML VIAL IV SCH (19:45)
[2019-10-22] MEDS: PRAVASTATIN SOD 40 MG TAB PO SCH (20:09)
[2019-10-22] MEDS: HEPARIN SOD 5,000 UNIT/0.5 ML VIAL SQ SCH (20:49)
[2019-10-22] MEDS ORDERED: AMLODIPINE BESYLATE 5 MG TAB PO SCH (21:00)
--- NOTE | 2019-10-22 22:00 | Electrocardiogram Report ---
Test Reason : Blood Pressure : / mmHG Vent. Rate : 100 BPM Atrial Rate : 100 BPM P-R Int : 152 ms QRS Dur : 086 ms QT Int : 344 ms P-R-T Axes : 026 046 133 degrees QTc Int : 443 ms Normal sinus rhythm Septal infarct , age undetermined Abnormal ECG Nonspecific T wave abnormality When compared with ECG of 22-OCT-2018 00:33, Nonspecific T wave abnormality, improved in Inferior leads T wave inversion now evident in Lateral leads Confirmed by Samuel Wallace ([id number]) on 10/22/2019 9:59:42 PM Referred By: REFERRED SELF Confirmed By:Samuel Wallace
--- NOTE | 2019-10-22 23:07 | Electrocardiogram Report ---
Test Reason : Blood Pressure : / mmHG Vent. Rate : 098 BPM Atrial Rate : 098 BPM P-R Int : 158 ms QRS Dur : 086 ms QT Int : 344 ms P-R-T Axes : 049 059 183 degrees QTc Int : 439 ms Normal sinus rhythm Low voltage QRS Septal infarct Nonspecific T wave abnormality Abnormal ECG When compared with ECG of 21-OCT-2019 21:05, Nonspecific T wave abnormality, worse in Inferior leads Confirmed by Samuel Wallace ([id number]) on 10/22/2019 11:06:50 PM Referred By: REFERRED SELF Confirmed By:Samuel Wallace
[2019-10-22] MEDS: FAMOTIDINE 20 MG in SYRINGE 3 ML IV SCH (23:34)
[2019-10-23] MEDS: SODIUM CHLORIDE 0.9% 1000ML 1,000 ML IV SCH ×2 (01:10→13:19)
[2019-10-23] MEDS: PIPERACILLIN/TAZOBACTAM 4.5 GM in DEXTROSE 5% 100 ML IV SCH ×3 (04:00→21:41)
[2019-10-23] MEDS: ACETAMINOPHEN 1,000 MG/100 ML VIAL IV SCH ×3 (04:00→21:41)
[2019-10-23] MEDS: METOPROLOL TARTRATE 1 MG/ML VIAL IV SCH ×4 (06:28→17:09)
[2019-10-23] MEDS: HEPARIN SOD 5,000 UNIT/0.5 ML VIAL SQ SCH (06:28)
[2019-10-23 08:32] LABS: Hematocrit (blood only) 49.3 % (42-52); Hemoglobin 16.1 g/dL (14.0-18.0); Mean Corpuscular Hemoglobin 31.9 pg (25-34); Mean Corpuscular Hgb Conc 32.7 g/dL (32-36); Mean Corpuscular Volume 97.8 fL (80-100); Platelet Count 148 K/uL (130-400); RDW Coefficient of Variation 13.7 % (11.5-14.5); RDW Standard Deviation 48.6 fL (36.4-46.3); Red Blood Count 5.04 M/uL (4.7-6.1); White Blood Count 7.97 K/uL (4.8-10.8)
[2019-10-23 09:02] LABS: Albumin Level 2.8 gm/dl (3.4-5.0); BUN Creatinine Ratio 11.8 (10-20); Calcium 9.3 mg/dl (8.5-10.1); Creatinine Clr Calc Pharmacy 47.8 ml/min; Est GFR (African American) 51.8; Est GFR (Non-African American) 44.7; Magnesium 1.9 mg/dl (1.8-2.4); Potassium 3.9 mmol/L (3.5-5.1)
[2019-10-23] MEDS ORDERED: HydrALAZINE HCL 20 MG/ML VIAL IV STA (09:04)
[2019-10-23] MEDS ORDERED: LORazepam 0.25 MG/0.5 ML VIAL IV PRN (09:08)
--- NOTE | 2019-10-23 09:10 | Hospitalist Progress Note ---
Date of Service October 23, 2019 Assessment & Plan (1) SBO (small bowel obstruction): NG tube was placed to low intermittent suction overnight. 1.5L return of bilious, ? bloody aspirate overnight. No HD instability and HH stable. May be some irritation from multiple NG tube attempts yesterday in a patient on Plavix. To be conservative will start PPI bolus and drip and contact GI regarding further recommendations. Cont NPO with IVF running. Cont Zosyn empirically. No clear signs of peritonitis today. Appreciate Surgery recs. KUB reveals persistent SB dilation this morning. Holding heparin in setting of ? hemorrhagic appearance to gastric fluid. (2) Hypertension: uncontrolled 2/2 pain and nausea. Cont supportive care efforts. Cont hydralazine IV and metoprolol IV while patient is NPO. Hold PO amlodipine. (3) Gout: will hold allopurinol to minimized pill burden. (4) CKD (chronic kidney disease), stage III: at baseline. Avoid nephrotoxic substances as able. (5) Coronary artery disease: chronic, stable. No chest pain. Holding Plavix and pravastatin for now while NPO. Cont Lopressor IV. Allergy to aspirin. (6) Cerebrovascular disease: Holding plavix and pravastatin while NPO. Allergy to aspirin. (7) DVT prophylaxis: Heparin-held in setting of hemorrhagic appearance to gastric aspirate. Full code Dispo-improved clinically, but doesn't appear to be fully decompressed yet. Cont close monitoring in PCU. Appreciate Surgery continuing to follow case. was updated by phone this morning regarding the improved clinical status and the plan. She verbalized understanding. Janet Patel DO [facility] Hospitalist Admission and Anticipated Discharge Date Admission Date: October 21, 2019 Subjective Pt feels improved today denies pain or nausea Denies fevers, chills, chest pain, SOB Abdomen is more soft KUB this morning with SB dilation that is persistent 1.5 L gastric aspirate out overnight Cont to hold oral meds Spoke with GI regarding bloody appearance of aspirate Spoke with and updated her on his status. Review of Systems Review of Systems: All systems reviewed & are unremarkable except as noted in Subjective Physical Exam Physical Exam: CONSTITUTIONAL: obese, vitals as above, generally well- appearing, NAD EYES: pupils are equal and round bilaterally, normal conjunctivae, no scleral icterus ENT: external ear and nose normal, oropharynx clear, MMM, NGt in place with greenish dark red material being suctioned. RESPIRATORY: clear to auscultation bilaterally, no crackles, rales or wheezes, normal respiratory effort CARDIOVASCULAR: regular rate and rhythm, S1 and 2 heard without murmurs, gallops or rubs, no JVD, no peripheral edema GASTROINTESTINAL: pt was examined in a supine position, soft, nontender, protuberant abdomen, hypoactive bowel sounds, overall much improved from yesterday's exam. MUSCULOSKELETAL: strength 5/5 throughout, head is normocephalic and atraumatic SKIN: warm and dry NEUROLOGIC: CN 2-12 grossly intact, normal cognition, normal speech but expressive aphasia and word finding difficulty are clear to me on exam-appears to be at his baseline, no tremor PSYCHIATRIC: alert cooperative and oriented to person, place and time. Results & Data Results & Data ([facility]) Vital Signs (Past 12 Hours) Vital Signs Temp Pulse Pulse Resp BP BP BP 10/23/19 08:02 36.3 C L 80 16 169/80 H 10/23/19 08:00 88 10/23/19 06:28 94 H 166/94 H 10/23/19 04:27 36.8 C 94 H 19 166/94 H 10/23/19 00:00 37.1 C 92 H 92 H 19 151/77 H 151/77 H Pulse Ox 10/23/19 08:02 96 10/23/19 08:00 10/23/19 06:28 10/23/19 04:27 97 10/23/19 00:00 92 Laboratory Results Short CBC 10/22/19 10/23/19 Range/Units 13:39 08:02 WBC 11.31 H 7.97 (4.8-10.8) K/uL Hgb 16.6 16.1 (14.0-18.0) g/dL Hct 49.5 49.3 (42-52) % Plt Count 153 148 (130-400) K/uL BMP 10/22/19 10/23/19 10:09 08:02 Sodium 137 140 Potassium 4.2 D 3.9 Chloride 106 108 H Carbon Dioxide 24 28 BUN 23 H 18 Creatinine 1.60 H D 1.54 H Glucose 136 H 108 H Calcium 9.7 D 9.3 Liver Function 10/23/19 Range/Units 08:02 AST 20 (15-37) U/L ALT 51 (12-78) U/L Albumin 2.8 L (3.4-5.0) gm/dl Medications Administered Current Inpatient Medications Allopurinol (Zyloprim) 100 mg PO QAM [facility] Stop: 11/21/19 08:59 Last Admin: 10/22/19 09:41 Dose: 100 mg Documented by: Amlodipine Besylate (Norvasc) 10 mg PO QPM [facility] Stop: 11/21/19 02:14 Last Admin: 10/22/19 02:59 Dose: 10 mg Documented by: Clopidogrel Bisulfate (Plavix) 75 mg PO QAM [facility] Stop: 11/22/19 08:59 Cyanocobalamin (Vitamin [facility]-12) [facility] Stop: 11/21/19 08:59 Last Admin: 10/22/19 09:41 Dose: 100 mcg Documented by: Famotidine (Pepcid) 20 mg PO BID [facility] Stop: 11/21/19 08:59 Last Admin: 10/22/19 09:41 Dose: 20 mg Documented by: Finasteride (Proscar) 5 mg PO QPM [facility] Stop: 11/21/19 20:59 Fluticasone/Vilanterol (Breo Ellipta 100/25 Mcg Inh) 1 puffs INH DAILY [facility] Stop: 11/21/19 08:59 Last Admin: 10/22/19 09:42 Dose: 1 puffs Documented by: Heparin Sodium (Porcine) (Heparin Sodium (Porcine)) 5,000 units SQ Q8 [facility] Stop: 11/21/19 21:59 Last Admin: 10/23/19 06:28 Dose: 5,000 units Documented by: Hydralazine HCl (Apresoline) 10 mg PO BID [facility] Stop: 11/21/19 01:28 Last Admin: 10/22/19 20:10 Dose: 10 mg Documented by: Hydralazine HCl (Hydralazine Hcl) 5 mg IV Q6H PRN PRN Reason: SBP>170 Stop: 11/21/19 18:10 Sodium Chloride (Nss 1000ml) 1,000 mls @ 80 mls/hr IV .[id number] [facility] Stop: 11/21/19 01:28 Last Admin: 10/23/19 01:10 Dose: 80 mls/hr Documented by: Promethazine HCl 12.5 mg/ (Sodium Chloride) 50.5 mls @ 202 mls/hr IV Q6H PRN PRN Reason: Nausea And Vomiting Stop: 11/21/19 01:28 Piperacillin Sod/Tazobactam (Sod 4.5 gm/ Dextrose) 120 mls @ 30 mls/hr IV Q8H [facility]; Protocol Stop: 11/01/19 11:59 Last Infusion: 10/23/19 08:00 Dose: Infused Documented by: Acetaminophen (Ofirmev) 1,000 mg in 100 mls @ 400 mls/hr IV Q8H [facility] Stop: 10/25/19 18:59 Last Infusion: 10/23/19 04:15 Dose: Infused Documented by: Famotidine 20 mg/ Syringe 5 mls @ 2.5 mls/min IV BID [facility] Stop: 11/21/19 20:59 Last Admin: 10/22/19 23:34 Dose: 2.5 mls/min Documented by: Lorazepam (Ativan) 0.25 mg in 0.5 mls @ 0.5 mls/min IV TID PRN PRN Reason: severe anxiety Stop: 11/22/19 09:07 Metoprolol Tartrate (Lopressor) 5 mg IV Q6 [facility] Stop: 11/22/19 00:00 Last Admin: 10/23/19 06:28 Dose: 5 mg Documented by: Miscellaneous Information (Consult) 1 ea N/A UD PRN PRN Reason: Consult Stop: 11/20/19 23:18 Morphine Sulfate (Morphine Sulfate) 4 mg IV Q4H PRN PRN Reason: Severe Pain Stop: 11/05/19 17:48 Pravastatin Sodium (Pravachol) 40 mg PO QPM [facility] Stop: 11/21/19 20:59 Last Admin: 10/22/19 20:09 Dose: 40 mg Documented by: Trazodone HCl (Desyrel) 50 mg PO HS [facility] Stop: 11/21/19 20:59 (1) Coronary artery disease Associated angina: without angina Coronary Disease-Associated Artery/Lesion type: [place] artery [place] vs. transplanted heart: [place] heart Qualified Code(s): I25.10 - Atherosclerotic heart disease of [place] coronary artery without angina pectoris (2) Hypertension Hypertension type: unspecified Qualified Code(s): I10 - Essential (primary) hypertension
[2019-10-23 09:11] LABS: Albumin Globulin Ratio 0.8 (0.9-2); Bilirubin,Total 0.5 mg/dl (0.2-1); Globulin 3.4 gm/dl (2.5-4.0); Phosphorus 2.9 mg/dl (2.5-4.9); Total Protein 6.2 gm/dl (6.4-8.2)
[2019-10-23] MEDS: CLOPIDOGREL BISULFATE 75 MG TAB PO SCH (09:25)
[2019-10-23] MEDS: HydrALAZINE 10 MG TAB PO SCH (09:25)
[2019-10-23] MEDS: FLUTICASONE/VILANTEROL 100/25MCG 14 PUFFS/INHALER INH SCH (09:25)
--- NOTE | 2019-10-23 10:02 | XRay Report ---
XR KUB/Abdomen 1 view CLINICAL HISTORY: SBO obstruction COMPARISON STUDY: No previous studies for comparison. FINDINGS: Nonobstructive bowel pattern. Mild nonobstructive small bowel ileus. Nasogastric tube within the gastric fundus. IMPRESSION: 1. Mild nonobstructive ileus. 2. Nasogastric tube within the gastric fundus. ACT 112: Negative or not required by law. The above report was generated using voice recognition software. It may contain grammatical, syntax or spelling errors. Electronically signed by: Juan Carson M.D. 10/23/2019 10:01 AM
[2019-10-23] MEDS: FAMOTIDINE 20 MG in SYRINGE 3 ML IV SCH ×2 (10:12→21:41)
--- NOTE | 2019-10-23 12:44 | Surgery Progress Note ---
Date of Service F/U SBO, pt is stable, no pass gas or BM yet, no abdominal pain, pt has NG tube placed, NG - 950ml, October 23, 2019 Assessment & Plan (1) SBO (small bowel obstruction): pt is a 69 year-old male who presents to ER with acute abdominal pain, IMP: SBO, Plan, I agree with hospitalist will admit to hospital for conservative treatment, NPO, IV fluid, control pain, WBC high, star cipro 400mg iv bid, repeat labs in am,KUB in am, NG tube insertion, no emergent surgical indication now, will F/U thanks, pt agrees with the plan, I answered all questions, 10/22/2019 12:02PM stable, continue treatment, I recommend to place NG tube, but pt refused it, even , pt dose not want NG tube, no emergent surgery now, I also indication pt may need surgery if he is not getting better, he understood, he will talk to his to make decision, I answered all questions, repeat KUB in am, will F/U 10/23/2019 12:46PM still not pass gas or BM yet continue conservative treatment will F/U Subjective 69 yo M with h/o 5 strokes in the past, last was 2015. He has subsequent residual expressive aphasia and some word finding difficulty. He also has some difficulties with use of his right hand typically. He has had persistent generalized abdominal pain overnight that he feels is slightly better today, however, he still reports pain and some nausea. Attempts to place an NGT overnight were unsuccessful resulting in epistaxis (pt on Plavix) and of the procedure. His abdomen is firm, distended, tender, and no bowel sounds can be heard. I contacted Dr. Fields who saw the patient right away and strongly recommended NG tube placement. The patient declined. He became tachycardic and more hypoxic so he was moved to the PCU. 4L via NC oxygen supplementation was applied. He has a h/o COPD and reports home use of oxygen. I did discuss with his the situation and explained why the NGT placement was indicated. She verbalized understanding and agreed with the thinking. Another unsuccessful attempt was made once he arrived into the PCU, as the patient became very combative with staff when they attempted to placed the NGT. Again, the procedure was aborted. I left another message for Dr. Fields explaining what we had attempted and that it was unsuccessful in an effort to review other options. Review of Systems Constitutional: as per Subjective / HPI Eyes: as per Subjective / HPI Ear, Nose, Mouth, Throat: as per Subjective / HPI Respiratory: as per Subjective / HPI COPD, pulmonary nodule Cardiovascular: as per Subjective / HPI Additional Comments: CAD, HTNPVD Gastrointestinal: as per Subjective / HPI Genitourinary: + as per Subjective / HPI and + problem reported (urinary retention, acute renal failure) Musculoskeletal: as per Subjective / HPI Integumentary: as per Subjective / HPI Neurologic: CVA Psychiatric: as per Subjective / HPI Endocrine: as per Subjective / HPI Hematologic / Lymphatic: as per Subjective / HPI Allergy / Immunological: as per Subjective / HPI Physical Exam Constitutional: WD/WN, vitals as above well developed and well nourished Eyes: PERRL, conjunctivae normal, anicteric sclerae ENMT: external ear and nose normal, oropharynx normal Neck: trachea midline, no thyromegaly Respiratory: normal respiratory effort, lungs clear to auscultation normal respiratory effort Cardiovascular: RRR, no murmur, no edema Rate/Rhythm: regular rate and regular rhythm Heart Sounds: normal S1 and normal S2 Gastrointestinal (Abdomen): normal bowel sounds, soft, nontender, no hepatosplenomegaly Percussion/Palpation: abdomen soft NT, ND, BS + Musculoskeletal: no cyanosis or clubbing, extremities motor strength 5/5 Skin: no rashes, warm and dry Neurologic: patellar DTR's 2+ bilat, sensation intact Psychiatric: Orientation: alert and oriented x 3 Results & Data Vital Signs (Past 12 Hours) Vital Signs Temp Pulse Pulse Resp BP BP BP 10/23/19 11:56 10/23/19 11:55 37.0 C 82 18 149/88 H 10/23/19 11:37 80 10/23/19 08:02 36.3 C L 80 16 169/80 H 10/23/19 08:00 88 10/23/19 06:28 94 H 166/94 H 10/23/19 04:27 36.8 C 94 H 19 166/94 H Pulse Ox 10/23/19 11:56 95 10/23/19 11:55 85 L 10/23/19 11:37 10/23/19 08:02 96 10/23/19 08:00 10/23/19 06:28 10/23/19 04:27 97 Laboratory Results Abnormal lab results 10/22/19 10/22/19 10/23/19 Range/Units 13:39 13:55 08:02 WBC 11.31 H (4.8-10.8) K/uL RDW Std Deviation 47.7 H (36.4-46.3) fL Immature Gran # (Auto) 0.03 H (0.00-0.02) K/uL Neut # (Auto) 8.46 H (1.4-6.5) K/uL Lymph # (Auto) 0.92 L (1.2-3.4) K/uL [place] # (Auto) 1.87 H (0.11-0.59) K/uL ABG pO2 65 L (80-95) mmHg ABG HCO3 25 H (19-24) mmol/L Chloride 108 H (98-107) mmol/L Creatinine 1.54 H (0.6-1.4) mg/dl Glucose 108 H (70-99) mg/dl Total Protein 6.2 L (6.4-8.2) gm/dl Albumin 2.8 L (3.4-5.0) gm/dl Albumin/Globulin Ratio 0.8 L (0.9-2) 10/23/19 Range/Units 08:02 WBC (4.8-10.8) K/uL RDW Std Deviation 48.6 H (36.4-46.3) fL Immature Gran # (Auto) (0.00-0.02) K/uL Neut # (Auto) (1.4-6.5) K/uL Lymph # (Auto) (1.2-3.4) K/uL [place] # (Auto) (0.11-0.59) K/uL ABG pO2 (80-95) mmHg ABG HCO3 (19-24) mmol/L Chloride (98-107) mmol/L Creatinine (0.6-1.4) mg/dl Glucose (70-99) mg/dl Total Protein (6.4-8.2) gm/dl Albumin (3.4-5.0) gm/dl Albumin/Globulin Ratio (0.9-2) Diagnostic Findings XR KUB/Abdomen 1 view CLINICAL HISTORY: SBO obstruction COMPARISON STUDY: No previous studies for comparison. FINDINGS: Nonobstructive bowel pattern. Mild nonobstructive small bowel ileus. Nasogastric tube within the gastric fundus. IMPRESSION: 1. Mild nonobstructive ileus. 2. Nasogastric tube within the gastric fundus.
[2019-10-23] MEDS ORDERED: PANTOprazole 40 MG in SYRINGE 0 ML IV SCH (13:30)
[2019-10-23] MEDS ORDERED: PANTOPRAZOLE BOLUS/DRIP 1 EA IV STA (13:45)
[2019-10-23] MEDS ORDERED: LORazepam 0.5 MG/1 ML VIAL IV PRN (13:56)
[2019-10-23] MEDS ORDERED: PANTOprazole 80 MG in DEXTROSE 5% 100 ML IV ONE (14:00)
[2019-10-23] MEDS: PANTOprazole 40 MG in DEXTROSE 5% 100 ML IV SCH ×2 (15:29→20:06)
[2019-10-23] MEDS: HydrALAZINE HCL 20 MG/ML VIAL IV SCH ×2 (17:09→22:09)
[2019-10-23] MEDS: PRAVASTATIN SOD 40 MG TAB PO SCH (21:47)
[2019-10-24] MEDS: SODIUM CHLORIDE 0.9% 1000ML 1,000 ML IV SCH (01:12)
[2019-10-24] MEDS: PANTOprazole 40 MG in DEXTROSE 5% 100 ML IV SCH ×3 (01:12→10:43)
[2019-10-24] MEDS: HydrALAZINE HCL 20 MG/ML VIAL IV SCH (04:12)
[2019-10-24] MEDS: PIPERACILLIN/TAZOBACTAM 4.5 GM in DEXTROSE 5% 100 ML IV SCH ×2 (04:16→12:16)
[2019-10-24] MEDS: ACETAMINOPHEN 1,000 MG/100 ML VIAL IV SCH ×2 (05:00→12:15)
[2019-10-24] MEDS: METOPROLOL TARTRATE 1 MG/ML VIAL IV SCH ×3 (05:54→12:16)
[2019-10-24 07:00] LABS: Hemoglobin 15.8 g/dL (14.0-18.0); Mean Corpuscular Hemoglobin 31.8 pg (25-34); Mean Corpuscular Hgb Conc 32.9 g/dL (32-36); Mean Corpuscular Volume 96.6 fL (80-100); Mean Platelet Volume 10.1 fL (7.4-10.4); Platelet Count 153 K/uL (130-400); RDW Coefficient of Variation 13.6 % (11.5-14.5); Red Blood Count 4.97 M/uL (4.7-6.1); White Blood Count 8.48 K/uL (4.8-10.8)
[2019-10-24 07:35] LABS: BUN Creatinine Ratio 9.9 (10-20); Calcium 8.6 mg/dl (8.5-10.1); Creatinine Clr Calc Pharmacy 53.7 ml/min; Est GFR (African American) 59.2; Est GFR (Non-African American) 51.1; Magnesium 1.7 mg/dl (1.8-2.4); Potassium 3.6 mmol/L (3.5-5.1)
[2019-10-24] MEDS: FAMOTIDINE 20 MG in SYRINGE 3 ML IV SCH (08:02)
--- NOTE | 2019-10-24 09:19 | Hospitalist Progress Note ---
Date of Service October 24, 2019 Assessment & Plan (1) SBO (small bowel obstruction): The patient has been decompressed and NG tube is been removed. He is now tolerating clear liquid diet and will advance diet slowly as tolerated. Some blood present in his gastric aspirate has prompted a gastroenterology evaluation on 10/22. The GI recommended this may have reflected NG placement trauma in the setting of Plavix and multiple failed attempts at tube placement. H&H has remained stable with stable vital signs and no more signs of GI bleeding. PPI drip will be stopped and no further work-up is needed at this time. Empiric Zosyn was also stopped. (2) Hypertension: Controlled on intravenous hydralazine and metoprolol. Amlodipine p.o. was held. Will transition patient back on his oral antihypertensive regimen. (3) Gout: Allopurinol per home regimen. (4) CKD (chronic kidney disease), stage III: at baseline. Avoid nephrotoxic substances as able. (5) Coronary artery disease: chronic, stable. No chest pain. Will restart Plavix and statin. Of note the patient feels he has an adverse reaction to aspirin although this is not a true allergy. Further discussion on the importance of re-trialing this at time of discharge may be helpful as the patient has had recurrent stroke x5 and to clear indications for aspirin prophylaxis including coronary artery disease and known cerebrovascular disease. (6) Cerebrovascular disease: Restart Plavix and pravastatin. Noted allergy to aspirin. (7) DVT prophylaxis: Heparin Full code Dispo-to home in 1 to 2 days. Advance diet as tolerated. I updated the on current clinical status. All questions answered her satisfaction Janet Patel [facility] and [facility]ticipated Discharge Date Admission Date: October 21, 2019 Subjective Passing flatus, denies nausea, denies belly pain, denies fever overnight. Tolerated clear liquid diet this morning. Reports 3-4 small bowel movements. NG tube was removed. Patient is overall improved. Review of Systems Review of Systems: All systems reviewed & are unremarkable except as noted in Subjective Physical Exam Physical Exam: CONSTITUTIONAL: obese, vitals as above, generally well- appearing, NAD EYES: pupils are equal and round bilaterally, normal conjunctivae, no scleral icterus ENT: external ear and nose normal, oropharynx clear, MMM, NG tube has been removed RESPIRATORY: clear to auscultation bilaterally, no crackles, rales or wheezes, normal respiratory effort CARDIOVASCULAR: regular rate and rhythm, S1 and 2 heard without murmurs, gallops or rubs, no JVD, no peripheral edema GASTROINTESTINAL: soft, nontender, protuberant abdomen, hypoactive bowel sounds, overall much improved from yesterday's exam. MUSCULOSKELETAL: strength 5/5 throughout, head is normocephalic and atraumatic SKIN: warm and dry NEUROLOGIC: CN 2-12 grossly intact, normal cognition, normal speech but expressive aphasia and word finding difficulty are clear to me on exam-appears to be at his baseline, no tremor PSYCHIATRIC: alert cooperative and oriented to person, place and time. Results & Data Results & Data ([facility]) Vital Signs (Past 12 Hours) Vital Signs Temp Pulse Pulse Resp BP BP Pulse Ox 10/24/19 08:00 75 10/24/19 07:15 37.4 C 98 H 18 181/92 H 93 10/24/19 05:54 95 H 155/78 H 10/24/19 04:00 37.3 C 94 H 16 171/83 H 94 10/24/19 00:00 97 H 179/84 H 10/23/19 23:14 37.3 C 97 H 16 179/84 H 94 Laboratory Results Short CBC 10/24/19 Range/Units 05:55 WBC 8.48 (4.8-10.8) K/uL Hgb 15.8 (14.0-18.0) g/dL Hct 48.0 (42-52) % Plt Count 153 (130-400) K/uL BMP 10/24/19 05:55 Sodium 141 Potassium 3.6 Chloride 108 H Carbon Dioxide 27 BUN 14 Creatinine 1.38 Glucose 109 H Calcium 8.6 Medications Administered Current Inpatient Medications Acetaminophen (Tylenol) 650 mg PO Q4H PRN PRN Reason: Pain or Fever Stop: 11/23/19 12:36 Allopurinol (Zyloprim) 100 mg PO QAM [facility] Stop: 11/21/19 08:59 Last Admin: 10/22/19 09:41 Dose: 100 mg Documented by: Amlodipine Besylate (Norvasc) 10 mg PO QPM [facility] Stop: 11/21/19 02:14 Last Admin: 10/22/19 02:59 Dose: 10 mg Documented by: Clopidogrel Bisulfate (Plavix) 75 mg PO QAM [facility] Stop: 11/22/19 08:59 Last Admin: 10/23/19 09:25 Dose: Not Given Documented by: Cyanocobalamin (Vitamin B-12) 100 mcg PO QAM [facility] Stop: 11/21/19 08:59 Last Admin: 10/22/19 09:41 Dose: 100 mcg Documented by: Famotidine (Pepcid) 20 mg PO BID [facility] Stop: 11/21/19 08:59 Last Admin: 10/22/19 09:41 Dose: 20 mg Documented by: Finasteride (Proscar) 5 mg PO QPM [facility] Stop: 11/21/19 20:59 Fluticasone/Vilanterol (Breo Ellipta 100/25 Mcg Inh) 1 puffs INH DAILY [facility] Stop: 11/21/19 08:59 Last Admin: 10/23/19 09:25 Dose: Not Given Documented by: Heparin Sodium (Porcine) (Heparin Sodium (Porcine)) 5,000 units SQ Q8 [facility] Stop: 11/21/19 21:59 Last Admin: 10/23/19 06:28 Dose: 5,000 units Documented by: Hydralazine HCl (Apresoline) 10 mg PO BID [facility] Stop: 11/21/19 01:28 Last Admin: 10/23/19 09:25 Dose: Not Given Documented by: Hydralazine HCl (Hydralazine Hcl) 10 mg IV Q6H [facility] Stop: 11/23/19 09:59 Last Admin: 10/24/19 10:12 Dose: 10 mg Documented by: Promethazine HCl 12.5 mg/ (Sodium Chloride) 50.5 mls @ 202 mls/hr IV Q6H PRN PRN Reason: Nausea And Vomiting Stop: 11/21/19 01:28 Lorazepam (Ativan) 0.5 mg in 1 mls @ 1 mls/min IV Q8H PRN PRN Reason: Anxiety Stop: 11/22/19 13:55 Metoprolol Tartrate (Lopressor) 5 mg IV Q6 [facility] Stop: 11/22/19 00:00 Last Admin: 10/24/19 12:16 Dose: 5 mg Documented by: Morphine Sulfate (Morphine Sulfate) 4 mg IV Q4H PRN PRN Reason: Severe Pain Stop: 06/20/20 17:48 Pravastatin Sodium (Pravachol) 40 mg PO QPM [facility] Stop: 11/21/19 20:59 Last Admin: 10/23/19 21:47 Dose: 40 mg Documented by: Trazodone HCl (Desyrel) 50 mg PO HS [facility] Stop: 11/21/19 20:59 (1) Coronary artery disease Associated angina: without angina Coronary Disease-Associated Artery/Lesion type: [place] artery [place] vs. transplanted heart: [place] heart Qualified Code(s): I25.10 - Atherosclerotic heart disease of [place] coronary artery without angina pectoris (2) Hypertension Hypertension type: unspecified Qualified Code(s): I10 - Essential (primary) hypertension
[2019-10-24] MEDS ORDERED: HydrALAZINE HCL 20 MG/ML VIAL IV SCH (10:00)
--- NOTE | 2019-10-24 10:40 | Gastrointestinal Consultation ---
Date of Consultation October 24, 2019 Assessment & Plan (1) SBO (small bowel obstruction): Pt is a 69 y/o male, admitted w SBO currently managed conservatively. GI consulted for possible GI bleed as blood was noted on NG cannister. He had several attempts at NG placement thus likely had a NG placement trauma. Blood ct, VS stable and no more signs of GI bleeding. His NGT is removed this AM. He had a small brown stool this AM and is passing flatus, senses he may have more BM later. SBO resolving. GI will sign off, pls recall prn. Supervising Physician Co-Signing Physician Notes I have seen and examined the patient with TONNY Guillaume whose note reflects our findings and plan. NGT out. No vomiting. Brown stool. Suspect NGT trauma was the cause of the blood noted in the cannister when tube was in place. no s /s of on-going GI bleeding. Please call with questions. History of Present Illness Reason for Consultation: SBO, blood in NGT? Requesting Physician: Dr. Janet Patel Attending Physician: Dr. Mirta Garcia History of Present Illness Pt is a 69 y/o male, who's admitted for SBO suspected related to adhesions. He's been followed by Surgery, on conservative management. There were some difficulties placing NGT and when it was successfully placed, some blood is noted in cannister. Thus GI was consulted for possible GI bleed. This AM pt has NGT removed. Per RN his NG output had been bilious, no blood. H/H, VS remained stable. He denies abd pain, n/v. Is passing little flatus and had a small BM this AM, and has sensation for more BMs. Allergies Allergy/AdvReac Type Severity Reaction Status Date / Time aspirin AdvReac Intermediate RELAXES Verified 06/13/19 14:35 RECTUM atorvastatin AdvReac Intermediate RELAXED Verified 06/13/19 14:35 RECTAL SPHINCTER Home Medications Home Medications Medication Instructions Recorded Confirmed Type allopurinol 100 mg PO QAM 07/13/18 10/21/19 History clopidogrel 75 mg PO QPM 07/13/18 10/21/19 History famotidine 20 mg PO BID 07/13/18 10/21/19 History metoprolol tartrate 50 mg PO BID 07/13/18 10/21/19 History multivitamin 1 tab PO QAM 07/13/18 10/21/19 History pravastatin 40 mg PO QPM 07/13/18 10/21/19 History trazodone 50 mg PO HS 07/13/18 10/21/19 History acetaminophen [Tylenol Arthritis 1,300 mg PO Q12H PRN 08/26/18 10/21/19 History Pain] sennosides [Vegetable Laxative] 8.6 mg PO BID PRN 08/26/18 10/21/19 History amlodipine [Norvasc] 10 mg PO QPM 10/13/18 10/21/19 History cyanocobalamin (vitamin B-12) 100 mcg PO QAM 10/13/18 10/21/19 History diclofenac sodium [Voltaren] 2 g TOPICAL BID PRN 10/13/18 10/21/19 History Oxygen Home #1 ea 01/06/19 06/13/19 Rx budesonide-formoterol HFA 160 2 puffs INH BID #10.2 gm 03/21/19 10/21/19 Rx mcg-4.5 mcg/actuation aerosol inhaler finasteride [Proscar] 5 mg PO QPM 04/27/19 10/21/19 History turmeric 400 mg PO QAM 04/27/19 10/21/19 History hydralazine 10 mg tablet 10 mg PO BID tab 06/13/19 10/21/19 History Patient History Medical History BPH (benign prostatic hyperplasia) Cerebrovascular disease (Chronic) s/p multiple ischemic strokes Chronic systolic CHF (congestive heart failure) (Chronic) CKD (chronic kidney disease), stage III (Chronic) COPD (chronic obstructive pulmonary disease) (Chronic) Coronary artery disease (Chronic) s/p CABG Dyslipidemia (Chronic) Gout (Chronic) Hearing deficit History of intracranial hemorrhage (Chronic) parenchymal hemorrhage perioperatively during / after carotid surgery Hypertension (Chronic) On anticoagulant therapy plavix daily On home oxygen therapy 2L N/C prn/HS Peripheral vascular disease (Chronic) Pulmonary nodule (Chronic) CXR [facility] 07/03/18: 1.3 cm right midlung nodule, slightly enlarged compared to 04/18/15. F/U with CT recommended. Sepsis hx of Solitary kidney (Chronic) atrophic left kidney, nephrectomy performed for hypertension Stroke (Resolved) x5---per has aphasia, right arm weakness/loss of peripheral vision Urinary retention (Chronic) UTI (urinary tract infection) due to Enterococcus Surgical History History of bronchoscopy x2 History of cardiac cath x2----no stents History of colonoscopy History of tooth extraction all upper teeth Status post abdominal aortic aneurysm (AAA) repair (Chronic) [place] @ [facility] [place] Status post carotid endarterectomy (Chronic) 09/30/2013--left @ [facility] Status post coronary artery bypass graft (Chronic) 1998 @ [facility] Status post nephrectomy (Chronic) left atrophic, nonfunctional associated with hypertension Status post transurethral resection of prostate (Chronic) Family History Sister Family history of diabetes mellitus Brother Family history of diabetes mellitus Other No family history of adverse response to anesthesia Social History Preferred Language: Burmese Communication Ability: Effective Visual Impairment: No Limitations Hearing Ability: Normal Straight Line Edger Required: No Beliefs That Will Affect Care: Presybeterian Presybeterian Beliefs: quaker Current Living Situation: Spouse and Family Current Living Situation Comment: with and sister Feels Safe at Home: Yes Safety Concerns: Feels Safe At This Time Smoking Status: Former smoker Tobacco Type: cigarettes ; Cigarettes Per Day: 20-40 ; Smoking End Date: 20 years ago ; Second Hand Exposure: No ; Hx Alcohol Use: Yes Alcohol type: beer Hx Substance Use: No Review of Systems Review of Systems: All systems reviewed & are unremarkable except as noted in HPI & below Physical Exam Constitutional: WD/WN, vitals as above well groomed, cooperative and comfortable Eyes: PERRL, conjunctivae normal, anicteric sclerae ENMT: external ear and nose normal, oropharynx normal Respiratory: normal respiratory effort, lungs clear to auscultation Cardiovascular: RRR, no murmur, no edema Gastrointestinal (Abdomen): normal bowel sounds, soft, nontender, no hepatosplenomegaly Skin: no rashes, warm and dry no jaundice Psychiatric: A+Ox3, euthymic affect Lymphatic: no lymphedema Results & Data ([facility]) Vital Signs (Past 12 Hours) Vital Signs Temp Pulse Pulse Resp BP BP Pulse Ox 10/24/19 08:00 75 10/24/19 07:15 37.4 C 98 H 18 181/92 H 93 10/24/19 05:54 95 H 155/78 H 10/24/19 04:00 37.3 C 94 H 16 171/83 H 94 10/24/19 00:00 97 H 179/84 H 10/23/19 23:14 37.3 C 97 H 16 179/84 H 94
--- NOTE | 2019-10-24 12:05 | Surgery Progress Note ---
Date of Service October 24, 2019 Assessment & Plan (1) SBO (small bowel obstruction): Resolving + bowel function today No leukocytosis abdominal pain resolved KUB 10/23/2019 showing mild nonobstructive ileus Plan: D/c NGT Start clears, advised patient to go slowly and stop if pain, nausea or bloating ambulate continue medical management Can d/c antibiotics Dr. Robertson has seen and examined patient, agrees with above. Subjective no abdominal pain today no nausea or vomiting passed gas and had two bowel movements one last night and this morning Physical Exam Constitutional: WD/WN, vitals as above not ill appearing sitting up in chair at bedside Respiratory: normal respiratory effort Gastrointestinal (Abdomen): Inspection/Auscultation: abdomen normal to inspection; abdomen not distended Percussion/Palpation: abdomen soft; abdomen nontender, no guarding and abdomen not rigid NGT with brown/bilious output, no ginger blood Skin: no rashes, warm and dry Psychiatric: Orientation: alert and oriented x 3 Results & Data Vital Signs (Past 12 Hours) Vital Signs Temp Pulse Pulse Resp BP BP Pulse Ox 10/24/19 11:54 36.9 C 114 H 19 137/82 93 10/24/19 08:00 75 10/24/19 07:15 37.4 C 98 H 18 181/92 H 93 10/24/19 05:54 95 H 155/78 H 10/24/19 04:00 37.3 C 94 H 16 171/83 H 94 Laboratory Results 10/24/19 10/24/19 Range/Units 05:55 05:55 WBC 8.48 (4.8-10.8) K/uL RBC 4.97 (4.7-6.1) M/uL Hgb 15.8 (14.0-18.0) g/dL Hct 48.0 (42-52) % MCV 96.6 (80-100) fL MCH 31.8 (25-34) pg MCHC 32.9 (32-36) g/dL RDW Std Deviation 48.0 H (36.4-46.3) fL RDW Coeff of Ketan 13.6 (11.5-14.5) % Plt Count 153 (130-400) K/uL MPV 10.1 (7.4-10.4) fL Sodium 141 (136-145) mmol/L Potassium 3.6 (3.5-5.1) mmol/L Chloride 108 H (98-107) mmol/L Carbon Dioxide 27 (21-32) mmol/L Anion Gap 6.0 (3-11) BUN 14 (7-18) mg/dl Creatinine 1.38 (0.6-1.4) mg/dl Est Cr Clr Drug Dosing 53.7 ml/min Est GFR ( Amer) 59.2 Est GFR (Non-Af Amer) 51.1 BUN/Creatinine Ratio 9.9 L (10-20) Glucose 109 H (70-99) mg/dl Calcium 8.6 (8.5-10.1) mg/dl Magnesium 1.7 L (1.8-2.4) mg/dl
[2019-10-24] MEDS ORDERED: ACETAMINOPHEN 325 MG TAB PO PRN (12:37)
[2019-10-24] MEDS: AMLODIPINE BESYLATE 5 MG TAB PO SCH (21:25)
[2019-10-24] MEDS: HydrALAZINE 10 MG TAB PO SCH (21:26)
[2019-10-24] MEDS: FAMOTIDINE 20 MG TAB PO SCH (21:26)
[2019-10-24] MEDS: FINASTERIDE 5 MG TAB PO SCH (21:27)
[2019-10-24] MEDS: HEPARIN SOD 5,000 UNIT/0.5 ML VIAL SQ SCH (21:27)
[2019-10-24] MEDS: PRAVASTATIN SOD 40 MG TAB PO SCH (21:27)
[2019-10-24] MEDS: TRAZODONE HCL 50 MG TAB PO SCH (21:30)
[2019-10-25] MEDS: HEPARIN SOD 5,000 UNIT/0.5 ML VIAL SQ SCH ×3 (06:12→20:57)
[2019-10-25 06:49] LABS: Creatinine Clr Calc Pharmacy 57.7 ml/min; Est GFR (African American) 64.2; Est GFR (Non-African American) 55.4
[2019-10-25] MEDS: allopurinoL 100 MG TAB PO SCH (07:45)
[2019-10-25] MEDS: CLOPIDOGREL BISULFATE 75 MG TAB PO SCH (07:45)
[2019-10-25] MEDS: CYANOCOBALAMIN (VITAMIN B-12) 100 MCG TABLET PO SCH (07:45)
[2019-10-25] MEDS: FLUTICASONE/VILANTEROL 100/25MCG 14 PUFFS/INHALER INH SCH (07:46)
[2019-10-25] MEDS: FAMOTIDINE 20 MG TAB PO SCH ×2 (07:46→20:58)
[2019-10-25] MEDS: HydrALAZINE 10 MG TAB PO SCH ×2 (08:45→20:58)
--- NOTE | 2019-10-25 10:17 | Surgery Progress Note ---
Date of Service October 25, 2019 Assessment & Plan (1) Obstruction of small intestine due to peritoneal adhesion: Patient is tolerated clear liquid diet and has no further nausea and vomiting Small bowel obstruction resolved Advance to soft diet and if tolerates then can be considered for discharge from a surgical standpoint. Subjective Continues to feel well Denies abdominal pain Denies nausea and vomiting Tolerated clear liquid diet Continues to have liquid bowel movements There is no melena or hematochezia Physical Exam Gastrointestinal (Abdomen): Inspection/Auscultation: normal bowel sounds; abdomen not distended Percussion/Palpation: abdomen soft; abdomen nontender Results & Data Vital Signs (Past 12 Hours) Vital Signs Temp Pulse Resp BP BP Pulse Ox 10/25/19 07:54 37.0 C 85 18 116/68 92 10/25/19 03:49 36.8 C 95 H 18 170/94 H 94 10/24/19 23:27 36.8 C 88 18 150/81 H 95 Laboratory Results 10/25/19 Range/Units 05:51 Creatinine 1.29 (0.6-1.4) mg/dl Est Cr Clr Drug Dosing 57.7 ml/min Est GFR ( Amer) 64.2 Est GFR (Non-Af Amer) 55.4
--- NOTE | 2019-10-25 15:27 | Hospitalist Progress Note ---
Date of Service October 25, 2019 Assessment & Plan (1) SBO (small bowel obstruction): Presented with nausea, vomiting, constipation. CT demonstrated distended fluid-filled loops of small bowel consistent with partial small bowel obstruction. General Surgery consulted. Managed with NGT and bowel rest. Improved. NGT removed. Now passing flatus and stool. Diet being advanced per General Surgery. (2) Coronary artery disease: No anginal symptoms. Continue clopidogrel, metoprolol, statin. (3) Chronic systolic CHF (congestive heart failure): History systolic CHF with LVEF of 25%; underlying ischemic and hypertensive heart disease. Compensated. No MARTINA or ARB due to CKD. Continue hydralazine. Diurese PRN. (4) Cerebrovascular disease: Status post multiple ischemic strokes. Underlying carotid artery disease. Status post intracranial parenchymal hemorrhage perioperatively during carotid surgery. Continue clopidogrel and management of hypertension and dyslipidemia. (5) Hypertension: BP and HR elevated. Resume metoprolol. (6) CKD (chronic kidney disease), stage III: Serum creatinine day of admission was 1.65, compared to 1.52 on 02/10/19. Received IV fluids. Creatinine today = 1.29. Follow. (7) COPD (chronic obstructive pulmonary disease): Pulmonary status stable. (8) DVT prophylaxis: SQ heparin. Ambulate. (9) Discharge planning issues: Anticipated discharge to home. Medical follow-up with Dr. Syed in [place]. Admission and Anticipated Discharge Date Admission Date: October 21, 2019 Subjective Recheck for bowel obstruction and other problems. Patient seen in their room around 1500. Doing better. NGT removed. Diet being advanced by surgical team. Denies nausea, vomiting, abdominal pain. Passing flatus and stool. Review of Systems: Constitutional- no fever. Cardiac- no chest pain. Pulmonary- no cough or SOB. GI- as noted above. - no urinary symptoms. Otherwise, as noted above. Physical Exam Constitutional: no acute distress sitting in chair Respiratory: no respiratory distress Auscultation: lungs clear to auscultation bilaterally Cardiovascular: Rate/Rhythm: regular rate, regular rhythm and + tachycardic Vessels: no JVD Extremities: + edema (trace pretibial); no calf tenderness Gastrointestinal (Abdomen): Inspection/Auscultation: + abdomen distended Percussion/Palpation: abdomen soft; abdomen nontender Skin: no rashes, warm and dry Psychiatric: Orientation: alert Results & Data Results & Data ([facility]) Vital Signs (Past 12 Hours) Vital Signs Temp Pulse Resp BP BP Pulse Ox 10/25/19 11:32 36.9 C 102 H 18 146/87 H 91 10/25/19 07:54 37.0 C 85 18 116/68 92 10/25/19 03:49 36.8 C 95 H 18 170/94 H 94 Laboratory Results 10/24/19 05:55 10/25/19 05:51 (1) Coronary artery disease Coronary Disease-Associated Artery/Lesion type: [place] artery [place] vs. transplanted heart: [place] heart Associated angina: without angina Qualified Code(s): I25.10 - Atherosclerotic heart disease of [place] coronary artery without angina pectoris (2) COPD (chronic obstructive pulmonary disease) COPD type: unspecified COPD Qualified Code(s): J44.9 - Chronic obstructive pulmonary disease, unspecified (3) Hypertension Hypertension type: unspecified Qualified Code(s): I10 - Essential (primary) hypertension
[2019-10-25] MEDS ORDERED: METOPROLOL TARTRATE 1 MG/ML VIAL IV ONE (19:42)
[2019-10-25] MEDS: METOPROLOL TARTRATE 50 MG TAB PO SCH (20:56)
[2019-10-25] MEDS: AMLODIPINE BESYLATE 5 MG TAB PO SCH (20:57)
[2019-10-25] MEDS: PRAVASTATIN SOD 40 MG TAB PO SCH (20:57)
[2019-10-25] MEDS: TRAZODONE HCL 50 MG TAB PO SCH (21:01)
[2019-10-25] MEDS: FINASTERIDE 5 MG TAB PO SCH (21:02)
[2019-10-26] MEDS: HEPARIN SOD 5,000 UNIT/0.5 ML VIAL SQ SCH ×2 (05:30→13:27)
[2019-10-26 06:41] LABS: Hematocrit (blood only) 45.8 % (42-52); Hemoglobin 15.2 g/dL (14.0-18.0); Mean Corpuscular Hemoglobin 31.5 pg (25-34); Mean Corpuscular Hgb Conc 33.2 g/dL (32-36); Mean Corpuscular Volume 94.8 fL (80-100); Mean Platelet Volume 9.8 fL (7.4-10.4); Platelet Count 157 K/uL (130-400); RDW Coefficient of Variation 13.6 % (11.5-14.5); RDW Standard Deviation 46.9 fL (36.4-46.3); Red Blood Count 4.83 M/uL (4.7-6.1); White Blood Count 6.98 K/uL (4.8-10.8)
[2019-10-26 07:13] LABS: BUN Creatinine Ratio 11.6 (10-20); Calcium 8.9 mg/dl (8.5-10.1); Creatinine Clr Calc Pharmacy 56.1 ml/min; Est GFR (African American) 61.9; Est GFR (Non-African American) 53.4; Magnesium 1.5 mg/dl (1.8-2.4); Potassium 3.5 mmol/L (3.5-5.1)
[2019-10-26] MEDS: CYANOCOBALAMIN (VITAMIN B-12) 100 MCG TABLET PO SCH (07:59)
[2019-10-26] MEDS: HydrALAZINE 10 MG TAB PO SCH (07:59)
[2019-10-26] MEDS: CLOPIDOGREL BISULFATE 75 MG TAB PO SCH (07:59)
[2019-10-26] MEDS: METOPROLOL TARTRATE 50 MG TAB PO SCH (07:59)
[2019-10-26] MEDS: allopurinoL 100 MG TAB PO SCH (07:59)
[2019-10-26] MEDS: FAMOTIDINE 20 MG TAB PO SCH (08:00)
[2019-10-26] MEDS: FLUTICASONE/VILANTEROL 100/25MCG 14 PUFFS/INHALER INH SCH (08:00)
[2019-10-26] MEDS ORDERED: POTASSIUM CHLORIDE 20 MEQ/15 ML UDC PO SCH (09:00)
[2019-10-26] MEDS: MAGNESIUM SULFATE / D5W 1 GM/100 ML BAG IV SCH ×2 (09:06→11:19)
--- NOTE | 2019-10-26 10:29 | Surgery Progress Note ---
Date of Service October 26, 2019 Assessment & Plan (1) Obstruction of small intestine due to peritoneal adhesion: Patient continues to have bowel movements and tolerating regular diet without pain or nausea or vomiting. Small bowel obstruction has resolved Has liquid bowel movements as would be expected after resolution of a small bowel obstruction No indication for surgical intervention at this time We will sign off. Please let us know if there is anything else that we can do to help. Subjective Had 5 loose bowel movements yesterday Denies abdominal pain Denies nausea and vomiting Tolerated low fiber diet Physical Exam Gastrointestinal (Abdomen): Inspection/Auscultation: normal bowel sounds; abdomen not distended Percussion/Palpation: abdomen soft; abdomen nontender Results & Data Vital Signs (Past 12 Hours) Vital Signs Temp Pulse Resp BP BP Pulse Ox 10/26/19 07:57 101 H 18 139/89 92 10/26/19 03:29 36.8 C 96 H 20 163/82 H 91 10/25/19 23:48 37.8 C H 97 H 19 159/94 H 92
--- NOTE | 2019-10-26 12:35 | Hospitalist Progress Note ---
Date of Service October 26, 2019 Assessment & Plan (1) SBO (small bowel obstruction): Presented with nausea, vomiting, constipation. CT demonstrated distended fluid-filled loops of small bowel consistent with partial small bowel obstruction. General Surgery consulted. Managed with NGT and bowel rest with improvement. NGT removed. Now passing flatus and stool; loose stools not unexpected with resolving SBO. Patient advised to avoid excessive fiber / roughage. (2) Coronary artery disease: No anginal symptoms. Continue clopidogrel, metoprolol, statin. (3) Chronic systolic CHF (congestive heart failure): History systolic CHF with LVEF of 25%; underlying ischemic and hypertensive heart disease. Compensated. No MARTINA or ARB due to CKD. Continue hydralazine. Diurese PRN. (4) Cerebrovascular disease: Status post multiple ischemic strokes. Underlying carotid artery disease. Status post intracranial parenchymal hemorrhage perioperatively during carotid surgery. Continue clopidogrel and management of hypertension and dyslipidemia. (5) Hypertension: BP and HR elevated. Resume metoprolol. (6) CKD (chronic kidney disease), stage III: Serum creatinine day of admission was 1.65, compared to 1.52 on 02/10/19. Received IV fluids. Creatinine today = 1.33. Follow. (7) Hypomagnesemia: Mg 1.5. Received IV Mg sulfate. Discharge on Mg oxide 400 BID x 7 days. Recheck in clinic. (8) COPD (chronic obstructive pulmonary disease): Pulmonary status stable. (9) DVT prophylaxis: SQ heparin. Ambulate. (10) Discharge planning issues: Discharge to home. Medical follow-up with Dr. Syed in [place]. Admission and Anticipated Discharge Date Admission Date: October 21, 2019 Subjective Recheck for bowel obstruction and other problems. Patient seen in their room around 1030. Anxious to go home. Doing well. Tolerating diet. Denies nausea, vomiting, abdominal pain. Passing flatus and stool (loose). Review of Systems: Constitutional- no fever. Cardiac- no chest pain. Pulmonary- no cough or SOB. GI- as noted above. - no urinary symptoms. Otherwise, as noted above. Physical Exam Constitutional: no acute distress Respiratory: no respiratory distress Auscultation: lungs clear to auscultation bilaterally Cardiovascular: Rate/Rhythm: regular rate and regular rhythm Vessels: no JVD Extremities: + edema (trace pretibial); no calf tenderness Gastrointestinal (Abdomen): Inspection/Auscultation: + abdomen distended and normal bowel sounds Percussion/Palpation: abdomen soft; abdomen nontender Skin: no rashes, warm and dry Psychiatric: Orientation: alert Results & Data Results & Data ([facility]) Vital Signs (Past 12 Hours) Vital Signs Temp Pulse Resp BP BP Pulse Ox 10/26/19 11:47 37.4 C 93 H 18 150/83 H 92 10/26/19 07:57 101 H 18 139/89 92 10/26/19 03:29 36.8 C 96 H 20 163/82 H 91 Laboratory Results 10/26/19 06:15 10/26/19 06:15 (1) Coronary artery disease Associated angina: without angina Coronary Disease-Associated Artery/Lesion type: [place] artery [place] vs. transplanted heart: [place] heart Qualified Code(s): I25.10 - Atherosclerotic heart disease of [place] coronary artery without angina pectoris (2) COPD (chronic obstructive pulmonary disease) COPD type: unspecified COPD Qualified Code(s): J44.9 - Chronic obstructive pulmonary disease, unspecified (3) Hypertension Hypertension type: unspecified Qualified Code(s): I10 - Essential (primary) hypertension
--- NOTE | 2019-10-26 13:20 | Discharge Summary ---
Date of Service Date of Admission: 10/21/2019 Date of Discharge: 10/26/2019 Admission HPI Per Admitting Provider History obtained from patient and records. History somewhat limited from patient secondary to hearing impairment. Medical history significant for CHF (TTE 60 to 64%, 2015), CAD status post CABG, PVD status post surgery, CVA, hypertension, hyperlipidemia, COPD, CRI (baseline creatinine 1.5), BPH, solitary kidney as per records, hx ESBL E. coli UTI, past tobacco abuse. Last confinement September 2018 for sepsis secondary to complicated UTI. 2 days history of constipation. This afternoon patient noted achy generalized abdominal pain with nausea and emesis. Stools are a little loose. No chest pain, no S OB. No fever, no chills. Patient consulted ER for evaluation. Epistaxis following unsuccessful attempts NGT insertion for bowel obstruction. Patient currently refusing reattempts of NGT insertion. Principal Diagnosis partial small bowel obstruction OTHER NEW / ACUTE DIAGNOSES: hypomagnesemia cholelithiasis Discharge Data Allergies Allergy/AdvReac Type Severity Reaction Status Date / Time aspirin AdvReac Intermediate RELAXES Verified 06/13/19 14:35 RECTUM atorvastatin AdvReac Intermediate RELAXED Verified 06/13/19 14:35 RECTAL SPHINCTER Consultations 10/22/19 00:15 ED Decision to Admit Stat 10/23/19 13:10 Consult Gastroenterology Routine Ordered Studies 10/21/19 21:03 CT abd pelvis wo con Urgent Hospital Course (1) SBO (small bowel obstruction): Presented with nausea, vomiting, constipation. CT demonstrated distended fluid-filled loops of small bowel consistent with partial small bowel obstruction. General Surgery consulted. [place] that SBO most likely due to adhesions. Managed with NGT and bowel rest with improvement. NGT removed. Now passing flatus and stool; loose stools not unexpected with resolving SBO. Patient advised to avoid excessive fiber / roughage. (2) Coronary artery disease: No anginal symptoms. Continue clopidogrel, metoprolol, statin. (3) Chronic systolic CHF (congestive heart failure): History systolic CHF with LVEF of 25%; underlying ischemic and hypertensive heart disease. Compensated. No MARTINA or ARB due to CKD. Continue hydralazine. Diurese PRN. (4) Cerebrovascular disease: Status post multiple ischemic strokes. Underlying carotid artery disease. Status post intracranial parenchymal hemorrhage perioperatively during carotid surgery. Continue clopidogrel and management of hypertension and dyslipidemia. (5) Hypertension: BP and HR elevated. Resume metoprolol. (6) CKD (chronic kidney disease), stage III: Serum creatinine day of admission was 1.65, compared to 1.52 on 02/10/19. Received IV fluids. Creatinine day of discharge 1.33. Follow. (7) Hypomagnesemia: Mg 1.5. Received IV Mg sulfate. Discharge on Mg oxide 400 BID x 7 days. Recheck in clinic. (8) COPD (chronic obstructive pulmonary disease): Pulmonary status stable. (9) Cholelithiasis: Small gallstones incidentally noted on CT of abdomen. No biliary tract obstruction. LFT's normal. (10) DVT prophylaxis: SQ heparin. Ambulate. (11) Discharge planning issues: Discharged to home. Medical follow-up with Dr. Syed in [place]. Total Time Total Time Spent Total Time Spent (In Minutes): 40 Discharge Plan Discharge Items Patient Disposition: Home - Self-Care Reason For Visit: intestinal blockage Discharge Diagnosis: intestinal blockage Condition on Discharge: Good Activity: Resume your previous activity Non-emergency contact: Primary Care Provider, Hospitalist and Surgeon Call non-emergency contact if: you have any medication questions and your symptoms worsen Follow-up/Referrals: Luis Armando Syed DO [Primary Care Provider] - 10/31/19 11:20 am (10/31/2019 11:20 AM Eloise Downing MD (covering for Dr. Syed) [facility] ) Diet: Heart Healthy and Low Fiber Addtl Attending Provider Instructions: MEDICATION CHANGES: magnesium oxide 1 pill twice a day SUMMARY OF TEST RESULTS: CT scan showed partial blockage in small intestine. CT scan also showed some small gallstones. Magnesium level was low. OTHER INSTRUCTIONS: Seek medical attention if you have: * temperature above 101 * chest pain or trouble breathing * abdominal pain, nausea, vomiting * diarrhea, dark stools or bloody stools * any unanswered questions or concerns Call 911 if symptoms are severe. Please take good care of yourself. Call if you have any questions or problems. You can reach a [facility] hospitalist on duty at [facility] 24 hours a day by calling [phone]. My cell # is [phone]. Pending Studies at Discharge: No Stand-Alone Forms: My [facility], Smoking Cessation Medications and DC Order Prescriptions: New magnesium oxide 400 mg (241.3 mg magnesium) tablet 400 mg PO BID Qty: 14 RF: 0 Continued (DME) Oxygen Home Liters Per Minute See Dose Instructions .ROUTE .MEDSUPPLY Qty: 1 RF: 0 trazodone 50 mg tablet 50 mg PO HS RF: 0 pravastatin 40 mg tablet 40 mg PO QPM RF: 0 clopidogrel 75 mg tablet 75 mg PO QPM RF: 0 allopurinol 100 mg tablet 100 mg PO QAM RF: 0 famotidine 20 mg tablet 20 mg PO BID RF: 0 metoprolol tartrate 50 mg tablet 50 mg PO BID RF: 0 multivitamin Tablet,Chewable 1 tab PO QAM RF: 0 hydralazine 10 mg tablet 10 mg PO TID RF: 0 amlodipine [Norvasc] 10 mg tablet 10 mg PO QPM RF: 0 diclofenac sodium [Voltaren] 1 % Gel 2 g TOPICAL BID PRN (Reason: right foot) RF: 0 cyanocobalamin (vitamin B-12) 100 mcg Tablet 100 mcg PO QAM RF: 0 fluticasone propion-salmeterol 113-14 mcg/actuation aerosol powdr breath activated 1 inh INHALATION BID RF: 0 sennosides [Vegetable Laxative] 8.6 mg Tablet 8.6 mg PO BID PRN (Reason: Constipation) RF: 0 acetaminophen [Tylenol Arthritis Pain] 650 mg Tablet Extended Release 1,300 mg PO Q12H PRN (Reason: Pain) RF: 0 finasteride [Proscar] 5 mg tablet 5 mg PO QPM RF: 0 turmeric 400 mg Capsule 400 mg PO QAM RF: 0 Discharge Orders: Discharge Order (Routine); Ordered 10/26/19 Ordered By: Joe Velasco Admission Data Admit Date/Time: 10/21/19 23:48 Attending Provider: Joe Velasco Admit Provider: Kai Frias Primary Care Provider: Luis Armando Syed V. Other Providers: Kai Frias ; Mingo Johnson ; Janet Patel
== END 2019-10-26 15:05 | disposition home or self-care (01) | DRG 389 ==
LOC: ED 19:09 → SUATTDRO 23:48 → 2W 23:48 → 2S 10-22 15:03

== ENCOUNTER 2020-07-02 22:09 | Inpatient (IN) ==
[2020-07-02] MEDS ORDERED: DEXAMETHASONE SOD INJ 10 MG/ML VIAL IV ONE (22:28)
--- NOTE | 2020-07-02 22:48 | Emergency Department Note ---
History of Present Illness General Chief complaint: Shortness of Breath/Dyspnea Stated complaint: SOB, BACK PAIN, FEVER Time Seen by Provider: 07/02/20 22:19 History of Present Illness Maximum Pain Intensity: 0 This 70-year-old CHF (TTE 60 to 64%, 2016), CAD status post CABG, PVD status post surgery, CVA, hypertension, hyperlipidemia, COPD, CRI (baseline creatinine 1.5), BPH, solitary kidney as per records, hx ESBL E. coli UTI presents to the ER complaining of shortness of breath fever and feeling weak Location: Generalized Quality: Weak Severity: Severe Duration: Last night Timing: Last night Context: Patient got worse and patient came in Modifying factors: better with oxygen; worse with activity Patient complains of fever, cough, dyspnea weakness and body aches for the past day. He has not received the Covid vaccine or the flu shot. No recent travel. No sick contacts. Patient denies chest pain, abdominal pain, loss of taste or smell. Home Medications Medication Instructions Recorded Confirmed Type allopurinol 100 mg PO QAM 07/13/18 07/02/20 History clopidogrel 75 mg PO QPM 07/13/18 07/02/20 History famotidine 20 mg PO BID 07/13/18 07/02/20 History metoprolol tartrate 50 mg PO BID 07/13/18 07/02/20 History pravastatin 40 mg PO QPM 07/13/18 07/02/20 History trazodone 50 mg PO HS 07/13/18 07/02/20 History amlodipine [Norvasc] 10 mg PO QPM 10/13/18 07/02/20 History cyanocobalamin (vitamin B-12) 100 mcg PO QAM 10/13/18 07/02/20 History Oxygen Home #1 ea 01/06/19 01/18/20 Rx turmeric 400 mg PO QAM 04/27/19 07/02/20 History hydralazine 10 mg tablet 10 mg PO TID tab 06/13/19 07/02/20 History fluticasone propion-salmeterol 1 inh INHALATION BID 10/26/19 07/02/20 History multivitamin with minerals 1 tab PO DAILY 11/15/19 07/02/20 History [Hair,Skin and Nails] omega 4-kox-urv-fish oil 500 mg 2 cap PO DAILY cap 01/18/20 07/02/20 History (200mg-300mg)-1,000 mg capsule finasteride 5 mg tablet 5 mg PO DAILY #90 tab 03/20/20 07/02/20 Rx Allergies Allergy/AdvReac Type Severity Reaction Status Date / Time aspirin AdvReac Intermediate RELAXES Verified 07/02/20 23:23 RECTUM atorvastatin AdvReac Intermediate RELAXED Verified 07/02/20 23:23 RECTAL SPHINCTER Past Med/Surg History Medical History Abnormal EKG BPH (benign prostatic hyperplasia) BPH with obstruction/lower urinary tract symptoms Cerebrovascular disease s/p multiple ischemic strokes Cholelithiasis CKD (chronic kidney disease), stage III COPD (chronic obstructive pulmonary disease) Coronary artery disease s/p CABG Dyslipidemia Gout Hearing deficit History of intracranial hemorrhage parenchymal hemorrhage perioperatively during / after carotid surgery Hypertension On anticoagulant therapy plavix daily On home oxygen therapy 2L N/C prn/HS Peripheral vascular disease Pulmonary nodule CXR [facility] 07/03/18: 1.3 cm right midlung nodule, slightly enlarged compared to 04/18/15. F/U with CT recommended. Sepsis hx of Solitary kidney atrophic left kidney, nephrectomy performed for hypertension Stroke x5---per has aphasia, right arm weakness/loss of peripheral vision Urinary retention UTI (urinary tract infection) due to Enterococcus Surgical History History of bronchoscopy x2 History of cardiac cath x2----no stents History of colonoscopy History of tooth extraction all upper teeth Status post abdominal aortic [place]) [place] [facility] [place] post [place] endarterectomy 09[place]30/2013[place] [facility] [place] post coronary artery bypass graft 1998 [place] [facility] [place] Status post nephrectomy left atrophic, nonfunctional associated with hypertension Status post transurethral resection of prostate Family History Sister Family history of diabetes mellitus Brother Family history of diabetes mellitus Other No family history of adverse response to anesthesia Social History Smoking Status: Never smoker Cigarettes Per Day: 20-40; Second Hand Exposure: No; Hx Alcohol Use: Yes Alcohol type: beer Hx Substance Use: No Preferred Language: Kiswahili Communication Ability: Effective Visual Impairment: No Limitations Hearing Ability: Normal Slubber Runner Required: No Beliefs That Will Affect Care: Spiritism Spiritism Beliefs: rastafari Current Living Situation: Spouse and Family Current Living Situation Comment: with and sister Feels Safe at Home: Yes Assistive Devices: None Review of Systems A total of 10 systems reviewed and were otherwise negative Physical Exam Vital Signs Vital Signs - 24 hr 07/02/20 22:14 07/02/20 22:26 07/02/20 22:49 Temperature 37.2 C Temperature Source Oral Pulse Rate 117 H 108 H Pulse Rate [Finger] Pulse Rate from SpO2 Sensor Pulse Rhythm Regular Pulse Strength Normal Respiratory Rate 26 H 26 H 20 Respiratory Effort / Characteristics Spontaneous Short of Breath SOB on Exertion Respiratory Depth Blood Pressure 178/98 H Blood Pressure [Right Arm] Blood Pressure Mean 124 Blood Pressure Mean [Right Arm] Blood Pressure Position Sitting Blood Pressure Position [Right Arm] Pulse Oximetry 85 L 94 95 Oxygen Delivery Method Room Air Nasal Cannula Nasal Cannula Oxygen Flow Rate 3 3 Sepsis Recent Fever Within 48 Hours No Sepsis New/Unexplained Change in Mental Status N/A Sepsis Action Taken by Nursing No Action Required 07/02/20 23:12 07/02/20 23:28 07/02/20 23:30 Temperature Temperature Source Pulse Rate 103 H 101 H 101 H Pulse Rate [Finger] Pulse Rate from SpO2 Sensor 100 H 101 H 102 H Pulse Rhythm Pulse Strength Respiratory Rate 24 22 27 H Respiratory Effort / Characteristics Respiratory Depth Blood Pressure 169/96 H 161/104 H 162/98 H Blood Pressure [Right Arm] Blood Pressure Mean 120 123 119 Blood Pressure Mean [Right Arm] Blood Pressure Position Blood Pressure Position [Right Arm] Pulse Oximetry 95 94 93 Oxygen Delivery Method Nasal Cannula Nasal Cannula Nasal Cannula Oxygen Flow Rate 3 3 3 Sepsis Recent Fever Within 48 Hours Sepsis New/Unexplained Change in Mental Status Sepsis Action Taken by Nursing 07/03/20 00:00 07/03/20 00:06 07/03/20 00:31 Temperature Temperature Source Pulse Rate 86 90 Pulse Rate [Finger] Pulse Rate from SpO2 Sensor 87 88 Pulse Rhythm Pulse Strength Respiratory Rate 27 H 20 20 Respiratory Effort / Characteristics Non-Labored Spontaneous Respiratory Depth Blood Pressure 161/97 H 147/102 H Blood Pressure [Right Arm] Blood Pressure Mean 118 117 Blood Pressure Mean [Right Arm] Blood Pressure Position Blood Pressure Position [Right Arm] Pulse Oximetry 93 95 92 Oxygen Delivery Method Nasal Cannula Nasal Cannula Oxygen Flow Rate 3 3 Sepsis Recent Fever Within 48 Hours Sepsis New/Unexplained Change in Mental Status Sepsis Action Taken by Nursing 07/03/20 01:01 07/03/20 01:19 07/03/20 01:30 Temperature Temperature Source Pulse Rate 76 80 Pulse Rate [Finger] Pulse Rate from SpO2 Sensor 77 80 Pulse Rhythm Pulse Strength Respiratory Rate 26 H 18 21 Respiratory Effort / Characteristics Non-Labored Spontaneous Respiratory Depth Blood Pressure 148/86 H 149/89 H Blood Pressure [Right Arm] Blood Pressure Mean 106 109 Blood Pressure Mean [Right Arm] Blood Pressure Position Blood Pressure Position [Right Arm] Pulse Oximetry 94 92 94 Oxygen Delivery Method Nasal Cannula Nasal Cannula Nasal Cannula Oxygen Flow Rate 3 2 3 Sepsis Recent Fever Within 48 Hours Sepsis New/Unexplained Change in Mental Status Sepsis Action Taken by Nursing 07/03/20 02:28 Temperature Temperature Source Pulse Rate Pulse Rate [Finger] 89 Pulse Rate from SpO2 Sensor Pulse Rhythm Pulse Strength Respiratory Rate 20 Respiratory Effort / Characteristics Non-Labored Spontaneous Respiratory Depth Normal Blood Pressure Blood Pressure [Right Arm] 160/106 H Blood Pressure Mean Blood Pressure Mean [Right Arm] 124 Blood Pressure Position Blood Pressure Position [Right Arm] Lying Pulse Oximetry 95 Oxygen Delivery Method Nasal Cannula Oxygen Flow Rate 3 Sepsis Recent Fever Within 48 Hours Sepsis New/Unexplained Change in Mental Status Sepsis Action Taken by Nursing VITALS: Vitals are noted on the nurse's note and reviewed by myself. Vital signs hypoxic at 85%. GENERAL: Elderly male ill-appearing working to breathe SKIN: The skin was without rashes, erythema, edema, or bruising. There is no tenting of the skin. Capillary reflex less than 2 seconds. HEAD: Normocephalic atraumatic. EARS: External auditory canals clear, tympanic membranes pearly da silva without erythema or effusion bilaterally. EYES: Pupils equal round and reactive to light and accommodation. Conjunctivae without injection, sclerae without icterus. Extraocular movements intact. NOSE: Patent, turbinates without inflammation or discharge. MOUTH: Mucous membranes mildly dry. Pharynx without erythema or exudate. Uvula midline. Airway patent. Tongue does not deviate. NECK: Supple without nuchal rigidity. No lymphadenopathy. No thyromegaly. Cervical spine is nontender. No JVD. HEART: Regular rate and rhythm LUNGS: Mild end expiratory wheezes, without rales or rhonchi. No retractions or accessory muscle use. ABDOMEN: Positive bowel sounds x 4. Normal tympanic percussion. Soft, nontender, without masses or organomegaly. Alicea sign negative. No guarding or rebound tenderness. No CVA tenderness MUSCULOSKELETAL: No muscle atrophy, erythema, or edema noted. NEURO: Patient was alert and oriented to person place and time. Normal sensation to light and sharp touch. No focal neurological deficits. Course Administered Medications Sodium Chloride (Nss 1000ml) 1,000 mls @ 75 mls/hr IV .[id number] ONE Stop: 07/03/20 13:25 Last Admin: 07/03/20 01:01 Dose: 75 mls/hr Documented by: [id number] Magnesium Sulfate/Dextrose (Magnesium Sulfate / D5w) 1 gm in 100 mls @ 50 mls/hr IV ONE ONE Stop: 07/03/20 02:53 Last Admin: 07/03/20 01:02 Dose: 50 mls/hr Documented by: [id number] Discontinued Medications Dexamethasone (Dexamethasone Sod Inj 10 Mg/Ml Vial) 6 mg IV NOW ONE Stop: 07/02/20 22:29 Last Admin: 07/02/20 23:25 Dose: 6 mg Documented by: [id number] Piperacillin Sod/Tazobactam Sod (Zosyn) 4.5 gm in 120 mls @ 240 mls/hr IV NOW ONE Stop: 07/03/20 00:04 Last Infusion: 07/03/20 00:41 Dose: 0 mls/hr Documented by: [id number] Admin: 07/03/20 00:05 Dose: 240 mls/hr Documented by: [id number] Sodium Chloride (Nss 1000ml) 500 mls @ 999 mls/hr IV .[id number] ONE Stop: 07/03/20 00:36 Last Admin: 07/03/20 00:41 Dose: Not Given Documented by: [id number] Levalbuterol HCl (Levalbuterol Tartrate 15 Gm Hfa.Aer.Ad) 2 puffs INH NOW STA Stop: 07/02/20 23:01 Last Admin: 07/03/20 01:18 Dose: 2 puffs Documented by: [id number] Metoprolol Tartrate (Metoprolol Tartrate 50 Mg Tab) 50 mg PO NOW STA Stop: 07/02/20 23:07 Last Admin: 07/02/20 23:24 Dose: 50 mg Documented by: [id number] Medical Decision Making Medical Records Attestation: I reviewed the patient's medical records. Home Medications Current Medication List: was personally reviewed by me Laboratory Data Attestation: I reviewed the patient's lab results. Result diagrams: 07/03/20 00:03 07/02/20 Unknown Lab Results 07/02/20 07/02/20 07/02/20 Range/Units 23:29 23:29 23:30 WBC RBC Hgb Hct MCV MCH MCHC RDW Std Deviation RDW Coeff of Ketan Plt Count MPV Immature Gran % (Auto) Neut % (Auto) Lymph % (Auto) Brantley % (Auto) Eos % (Auto) Baso % (Auto) Neut # (Auto) Lymph # (Auto) Brantley # (Auto) Eos # (Auto) Baso # (Auto) Immature Gran # (Auto) Absolute Nucleated RBC Nucleated RBC % (auto) Neutrophils % (Manual) Band Neutrophils % Lymphocytes % (Manual) Prolymphocyte % Reactive Lymphs % (Man) Monocytes % (Manual) Eosinophils % (Manual) Basophils % (Manual) Metamyelocytes % (Man) Myelocytes % (Man) Promyelocytes % (Man) Blast Cells % (Manual) Plasma Cell % (Manual) Other Cells % Nucleated RBC % Neutrophils # (Manual) Band Neutrophils # Total Absolute Neuts Lymphocytes # (Manual) Prolymphocyte # Reactive Lymphs # Total Abs Lymphocytes Monocytes # (Manual) Eosinophils # (Manual) Basophils # (Manual) Metamyelocytes # (Man) Myelocytes # (Manual) Promyelocytes # (Man) Blast Cells # (Man) Plasma Cell # (Manual) Other Cells # Nucleated RBCs # (Man) Hypersegmented Neuts Hyposegmented Neuts Hypogranular Neuts Large Granular Lymphs # Lrg Granular Lymphs Hairy Cells Smudge Cells Toxic Granulation Toxic Vacuolation Dohle Bodies Bill Rods Platelet Estimate Hypogranular Platelets Clumped Platelets Giant Platelets Platelet Satelliting RBC Morphology Polychromasia Hypochromasia Poikilocytosis Basophilic Stippling Anisocytosis Microcytosis Macrocytosis Spherocytes Pappenheimer Bodies Sickle Cells Target Cells Tear Drop Cells Ovalocytes Stomatocytes [place]-Sewell Bodies Echinocytes Acanthocytes (Spur) Rouleaux RBC Agglutinates Schistocytes RBC Morph Comment Sezary Cell VBG pH (7.36-7.41) VBG pCO2 (38-50) mmHg VBG pO2 mmHg VBG HCO3 mmol/L VBG O2 Saturation % VBG Base Excess mEq/L Carboxyhemoglobin % THgb Sodium (136-145) mmol/L Potassium (3.5-5.1) mmol/L Chloride (98-107) mmol/L Carbon Dioxide (21-32) mmol/L Anion Gap (3-11) BUN (7-18) mg/dl Creatinine (0.6-1.4) mg/dl Est Cr Clr Drug Dosing ml/min Est GFR ( Amer) Est GFR (Non-Af Amer) BUN/Creatinine Ratio (10-20) Glucose (70-99) mg/dl Lactate 1.5 (0.4-2.0) mmol/L Calcium (8.5-10.1) mg/dl Magnesium (1.8-2.4) mg/dl Total Bilirubin (0.2-1) mg/dl AST (15-37) U/L ALT (12-78) U/L Alkaline Phosphatase (45-117) U/L Ammonia Troponin I (0-0.045) ng/ml Total Protein (6.4-8.2) gm/dl Albumin (3.4-5.0) gm/dl Globulin (2.5-4.0) gm/dl Albumin/Globulin Ratio (0.9-2) Specimen Hemolysis Urine Color Urine Appearance (Clear) Urine pH (4.5-7.5) Ur Specific [place] (1.000-1.030) Urine Protein (Negative) Urine Glucose (UA) (Negative) Urine Ketones (Negative) Urine Blood (Negative) Urine Nitrite (Negative) Urine Bilirubin (Negative) Urine Urobilinogen (Negative) Ur Leukocyte Esterase (Negative) Urine WBC (Auto) (0-5) /hpf Urine RBC (Auto) (0-4) /hpf U Hyaline Cast (Auto) (0-5) /lpf U Epithel Cells (Auto) (0-5) /lpf Urine Bacteria (Auto) (Negative) COVID-19 Eval Order CovFluRsv at [facility] SARS-CoV-2 (PCR) NEGATIVE (Negative) Influenza Type A (PCR) Negative (Neg) Influenza Type B (PCR) Negative (Neg) RSV (RT-PCR) Negative (Neg) 07/02/20 07/02/20 07/02/20 Range/Units 23:36 Unknown Unknown WBC Cancelled RBC Cancelled Hgb Cancelled Hct Cancelled MCV Cancelled MCH Cancelled MCHC Cancelled RDW Std Deviation Cancelled RDW Coeff of Ketan Cancelled Plt Count Cancelled MPV Cancelled Immature Gran % (Auto) Cancelled Neut % (Auto) Cancelled Lymph % (Auto) Cancelled Brantley % (Auto) Cancelled Eos % (Auto) Cancelled Baso % (Auto) Cancelled Neut # (Auto) Cancelled Lymph # (Auto) Cancelled Brantley # (Auto) Cancelled Eos # (Auto) Cancelled Baso # (Auto) Cancelled Immature Gran # (Auto) Cancelled Absolute Nucleated RBC Cancelled Nucleated RBC % (auto) Cancelled Neutrophils % (Manual) Cancelled Band Neutrophils % Cancelled Lymphocytes % (Manual) Cancelled Prolymphocyte % Cancelled Reactive Lymphs % (Man) Cancelled Monocytes % (Manual) Cancelled Eosinophils % (Manual) Cancelled Basophils % (Manual) Cancelled Metamyelocytes % (Man) Cancelled Myelocytes % (Man) Cancelled Promyelocytes % (Man) Cancelled Blast Cells % (Manual) Cancelled Plasma Cell % (Manual) Cancelled Other Cells % Cancelled Nucleated RBC % Cancelled Neutrophils # (Manual) Cancelled Band Neutrophils # Cancelled Total Absolute Neuts Cancelled Lymphocytes # (Manual) Cancelled Prolymphocyte # Cancelled Reactive Lymphs # Cancelled Total Abs Lymphocytes Cancelled Monocytes # (Manual) Cancelled Eosinophils # (Manual) Cancelled Basophils # (Manual) Cancelled Metamyelocytes # (Man) Cancelled Myelocytes # (Manual) Cancelled Promyelocytes # (Man) Cancelled Blast Cells # (Man) Cancelled Plasma Cell # (Manual) Cancelled Other Cells # Cancelled Nucleated RBCs # (Man) Cancelled Hypersegmented Neuts Cancelled Hyposegmented Neuts Cancelled Hypogranular Neuts Cancelled Large Granular Lymphs Cancelled # Lrg Granular Lymphs Cancelled Hairy Cells Cancelled Smudge Cells Cancelled Toxic Granulation Cancelled Toxic Vacuolation Cancelled Dohle Bodies Cancelled Bill Rods Cancelled Platelet Estimate Cancelled Hypogranular Platelets Cancelled Clumped Platelets Cancelled Giant Platelets Cancelled Platelet Satelliting Cancelled RBC Morphology Cancelled Polychromasia Cancelled Hypochromasia Cancelled Poikilocytosis Cancelled Basophilic Stippling Cancelled Anisocytosis Cancelled Microcytosis Cancelled Macrocytosis Cancelled Spherocytes Cancelled Pappenheimer Bodies Cancelled Sickle Cells Cancelled Target Cells Cancelled Tear Drop Cells Cancelled Ovalocytes Cancelled Stomatocytes Cancelled [place]ewell Bodies Cancelled Echinocytes Cancelled Acanthocytes (Spur) Cancelled Rouleaux Cancelled RBC Agglutinates Cancelled Schistocytes Cancelled RBC Morph Comment Cancelled Sezary Cell Cancelled VBG pH (7.36-7.41) VBG pCO2 (38-50) mmHg VBG pO2 mmHg VBG HCO3 mmol/L VBG O2 Saturation % VBG Base Excess mEq/L Carboxyhemoglobin 0.0 % THgb Sodium 139 (136-145) mmol/L Potassium 4.9 (3.5-5.1) mmol/L Chloride 105 (98-107) mmol/L Carbon Dioxide 27 (21-32) mmol/L Anion Gap 7.0 (3-11) BUN 26 H (7-18) mg/dl Creatinine 1.83 H (0.6-1.4) mg/dl Est Cr Clr Drug Dosing 42.6 ml/min Est GFR ( Amer) 41.8 Est GFR (Non-Af Amer) 36.1 BUN/Creatinine Ratio 14.0 (10-20) Glucose 131 H (70-99) mg/dl Lactate (0.4-2.0) mmol/L Calcium 9.5 (8.5-10.1) mg/dl Magnesium 1.8 (1.8-2.4) mg/dl Total Bilirubin 0.4 (0.2-1) mg/dl AST 30 (15-37) U/L ALT 52 (12-78) U/L Alkaline Phosphatase 104 (45-117) U/L Ammonia Troponin I 0.015 (0-0.045) ng/ml Total Protein 7.2 (6.4-8.2) gm/dl Albumin 3.0 L (3.4-5.0) gm/dl Globulin 4.2 H (2.5-4.0) gm/dl Albumin/Globulin Ratio 0.7 L (0.9-2) Specimen Hemolysis Urine Color Urine Appearance (Clear) Urine pH (4.5-7.5) Ur Specific [place] (1.000-1.030) Urine Protein (Negative) Urine Glucose (UA) (Negative) Urine Ketones (Negative) Urine Blood (Negative) Urine Nitrite (Negative) Urine Bilirubin (Negative) Urine Urobilinogen (Negative) Ur Leukocyte Esterase (Negative) Urine WBC (Auto) (0-5) /hpf Urine RBC (Auto) (0-4) /hpf U Hyaline Cast (Auto) (0-5) /lpf U Epithel Cells (Auto) (0-5) /lpf Urine Bacteria (Auto) (Negative) COVID-19 Eval Order SARS-CoV-2 (PCR) (Negative) Influenza Type A (PCR) (Neg) Influenza Type B (PCR) (Neg) RSV (RT-PCR) (Neg) 07/03/20 07/03/20 07/03/20 Range/Units 00:03 00:03 00:03 WBC 9.72 RBC 5.01 Hgb 16.2 Hct 49.0 MCV 97.8 MCH 32.3 MCHC 33.1 RDW Std Deviation 51.9 H RDW Coeff of Ketan 14.4 Plt Count 174 MPV 10.4 Immature Gran % (Auto) 0.2 Neut % (Auto) 71.8 Lymph % (Auto) 10.6 Brantley % (Auto) 17.2 Eos % (Auto) 0.0 Baso % (Auto) 0.2 Neut # (Auto) 6.98 H Lymph # (Auto) 1.03 L Brantley # (Auto) 1.67 H Eos # (Auto) 0.00 Baso # (Auto) 0.02 Immature Gran # (Auto) 0.02 Absolute Nucleated RBC Nucleated RBC % (auto) Neutrophils % (Manual) Band Neutrophils % Lymphocytes % (Manual) Prolymphocyte % Reactive Lymphs % (Man) Monocytes % (Manual) Eosinophils % (Manual) Basophils % (Manual) Metamyelocytes % (Man) Myelocytes % (Man) Promyelocytes % (Man) Blast Cells % (Manual) Plasma Cell % (Manual) Other Cells % Nucleated RBC % Neutrophils # (Manual) Band Neutrophils # Total Absolute Neuts Lymphocytes # (Manual) Prolymphocyte # Reactive Lymphs # Total Abs Lymphocytes Monocytes # (Manual) Eosinophils # (Manual) Basophils # (Manual) Metamyelocytes # (Man) Myelocytes # (Manual) Promyelocytes # (Man) Blast Cells # (Man) Plasma Cell # (Manual) Other Cells # Nucleated RBCs # (Man) Hypersegmented Neuts Hyposegmented Neuts Hypogranular Neuts Large Granular Lymphs # Lrg Granular Lymphs Hairy Cells Smudge Cells Toxic Granulation Toxic Vacuolation Dohle Bodies Bill Rods Platelet Estimate Hypogranular Platelets Clumped Platelets Giant Platelets Platelet Satelliting RBC Morphology Polychromasia Hypochromasia Poikilocytosis Basophilic Stippling Anisocytosis Microcytosis Macrocytosis Spherocytes Pappenheimer Bodies Sickle Cells Target Cells Tear Drop Cells Ovalocytes Stomatocytes [place]-Sewell Bodies Echinocytes Acanthocytes (Spur) Rouleaux RBC Agglutinates Schistocytes RBC Morph Comment Sezary Cell VBG pH 7.37 (7.36-7.41) VBG pCO2 50 (38-50) mmHg VBG pO2 36 mmHg VBG HCO3 28 mmol/L VBG O2 Saturation 68.9 % VBG Base Excess 2.0 mEq/L Carboxyhemoglobin % THgb Sodium (136-145) mmol/L Potassium (3.5-5.1) mmol/L Chloride (98-107) mmol/L Carbon Dioxide (21-32) mmol/L Anion Gap (3-11) BUN (7-18) mg/dl Creatinine (0.6-1.4) mg/dl Est Cr Clr Drug Dosing ml/min Est GFR ( Amer) Est GFR (Non-Af Amer) BUN/Creatinine Ratio (10-20) Glucose (70-99) mg/dl Lactate (0.4-2.0) mmol/L Calcium (8.5-10.1) mg/dl Magnesium (1.8-2.4) mg/dl Total Bilirubin (0.2-1) mg/dl AST (15-37) U/L ALT (12-78) U/L Alkaline Phosphatase (45-117) U/L Ammonia Cancelled Troponin I (0-0.045) ng/ml Total Protein (6.4-8.2) gm/dl Albumin (3.4-5.0) gm/dl Globulin (2.5-4.0) gm/dl Albumin/Globulin Ratio (0.9-2) Specimen Hemolysis Urine Color Urine Appearance (Clear) Urine pH (4.5-7.5) Ur Specific [place] (1.000-1.030) Urine Protein (Negative) Urine Glucose (UA) (Negative) Urine Ketones (Negative) Urine Blood (Negative) Urine Nitrite (Negative) Urine Bilirubin (Negative) Urine Urobilinogen (Negative) Ur Leukocyte Esterase (Negative) Urine WBC (Auto) (0-5) /hpf Urine RBC (Auto) (0-4) /hpf U Hyaline Cast (Auto) (0-5) /lpf U Epithel Cells (Auto) (0-5) /lpf Urine Bacteria (Auto) (Negative) COVID-19 Eval Order SARS-CoV-2 (PCR) (Negative) Influenza Type A (PCR) (Neg) Influenza Type B (PCR) (Neg) RSV (RT-PCR) (Neg) 07/03/20 07/03/20 Range/Units 00:25 01:17 WBC RBC Hgb Hct MCV MCH MCHC RDW Std Deviation RDW Coeff of Ketan Plt Count MPV Immature Gran % (Auto) Neut % (Auto) Lymph % (Auto) [place] % (Auto) Eos % (Auto) Baso % (Auto) Neut # (Auto) Lymph # (Auto) [place] # (Auto) Eos # (Auto) Baso # (Auto) Immature Gran # (Auto) Absolute Nucleated RBC Nucleated RBC % (auto) Neutrophils % (Manual) Band Neutrophils % Lymphocytes % (Manual) Prolymphocyte % Reactive Lymphs % (Man) Monocytes % (Manual) Eosinophils % (Manual) Basophils % (Manual) Metamyelocytes % (Man) Myelocytes % (Man) Promyelocytes % (Man) Blast Cells % (Manual) Plasma Cell % (Manual) Other Cells % Nucleated RBC % Neutrophils # (Manual) Band Neutrophils # Total Absolute Neuts Lymphocytes # (Manual) Prolymphocyte # Reactive Lymphs # Total Abs Lymphocytes Monocytes # (Manual) Eosinophils # (Manual) Basophils # (Manual) Metamyelocytes # (Man) Myelocytes # (Manual) Promyelocytes # (Man) Blast Cells # (Man) Plasma Cell # (Manual) Other Cells # Nucleated RBCs # (Man) Hypersegmented Neuts Hyposegmented Neuts Hypogranular Neuts Large Granular Lymphs # Lrg Granular Lymphs Hairy Cells Smudge Cells Toxic Granulation Toxic Vacuolation Dohle Bodies Bill Rods Platelet Estimate Hypogranular Platelets Clumped Platelets Giant Platelets Platelet Satelliting RBC Morphology Polychromasia Hypochromasia Poikilocytosis Basophilic Stippling Anisocytosis Microcytosis Macrocytosis Spherocytes Pappenheimer Bodies Sickle Cells Target Cells Tear Drop Cells Ovalocytes Stomatocytes [place]-Sewell Bodies Echinocytes Acanthocytes (Spur) Rouleaux RBC Agglutinates Schistocytes RBC Morph Comment Sezary Cell VBG pH (7.36-7.41) VBG pCO2 (38-50) mmHg VBG pO2 mmHg VBG HCO3 mmol/L VBG O2 Saturation % VBG Base Excess mEq/L Carboxyhemoglobin % THgb Sodium (136-145) mmol/L Potassium (3.5-5.1) mmol/L Chloride (98-107) mmol/L Carbon Dioxide (21-32) mmol/L Anion Gap (3-11) BUN (7-18) mg/dl Creatinine (0.6-1.4) mg/dl Est Cr Clr Drug Dosing ml/min Est GFR ( Amer) Est GFR (Non-Af Amer) BUN/Creatinine Ratio (10-20) Glucose (70-99) mg/dl Lactate (0.4-2.0) mmol/L Calcium (8.5-10.1) mg/dl Magnesium (1.8-2.4) mg/dl Total Bilirubin (0.2-1) mg/dl AST (15-37) U/L ALT (12-78) U/L Alkaline Phosphatase (45-117) U/L Ammonia < 10.0 L Troponin I (0-0.045) ng/ml Total Protein (6.4-8.2) gm/dl Albumin (3.4-5.0) gm/dl Globulin (2.5-4.0) gm/dl Albumin/Globulin Ratio (0.9-2) Specimen Hemolysis Urine Color Yellow Urine Appearance Cloudy A (Clear) Urine pH 5.0 (4.5-7.5) Ur Specific [place] 1.021 (1.000-1.030) Urine Protein 3+ H (Negative) Urine Glucose (UA) Negative (Negative) Urine Ketones Negative (Negative) Urine Blood 1+ H (Negative) Urine Nitrite Positive A (Negative) Urine Bilirubin Negative (Negative) Urine Urobilinogen Negative (Negative) Ur Leukocyte Esterase 1+ H (Negative) Urine WBC (Auto) >30 H (0-5) /hpf Urine RBC (Auto) 5-10 H (0-4) /hpf U Hyaline Cast (Auto) 5-10 H (0-5) /lpf U Epithel Cells (Auto) 10-20 H (0-5) /lpf Urine Bacteria (Auto) 1+ H (Negative) COVID-19 Eval Order SARS-CoV-2 (PCR) (Negative) Influenza Type A (PCR) (Neg) Influenza Type B (PCR) (Neg) RSV (RT-PCR) (Neg) Imaging Data Attestation: I personally reviewed and interpreted this imaging study as follows: MDM Narrative Prior records/ancillary studies reviewed. Triage Nursing notes reviewed. Additional history obtained from family. The patient's history was concerning for dyspnea and fever. Differential diagnosis: Etiologies such as Covid, viral syndrome, otitis, pharyngitis, pneumonia, influenza, meningitis, urinary tract infection, sepsis, bacteremia, as well as others were entertained. Physical examination: As above ER treatment provided: An order was placed for continuous cardiac monitoring. The monitor shows a rate of 60-1 30 with a NS rhythm. IV fluids, Decadron, Zosyn On reassessment the patient felt better. Diagnostics interpreted by me: ECG: Normal sinus, normal and was, no acute ST-T wave changes, impression sinus tachycardia interpreted by myself EKG ordered for dyspnea I think arrhythmia is unlikely. EKG shows normal sinus rhythm with no interval abnormalities such as QT prolongation or WPW. There are no findings to suggest Brugada syndrome. Cardiac monitoring in the emergency department reveals no tachycardic or bradycardic dysrhythmia. Hypertrophic cardiomyopathy was considered but there are no clear historical elements pointing toward this. EKG is not suggestive. The QRS voltage is not extremely large and there are no suggestive Q waves. The labs revealed no leukocytosis, creatinine 1.83 Patient refused ABG. VBG reviewed Urine concerning for infection and sent for culture Blood cultures pending [address], [place] [address] / Director: Greg Buenrostro M.D. Clinical Laboratory Report Name: ANALISA MEDRANO Acct: [id number] Status: DIS [place] : 1950 [facility] [place] Age: 70 Sex: M Dis Date: 10/20/18 Loc: [address] Rm/Bed: W454-2 Spec: [id number] Collected: 10/13/18 Received: 10/13/[address]: Jomar Doe MD Copy To: Luis Armando Syed DO Source: Urine,Clean Catch OV Order: Ordered: Urine Culture Procedure Result Verified Site Urine Culture Final 10/15/18 Organism 1 Escherichia coli ESBL [place] Count >100,000 CFU/ml Sens Sensitivities to Follow Sensitivity results indicate an organism with an Extended Spectrum Beta Lactamase. This is considered a Multidrug Resistant Organism. Phoned to ANDREW CHAVES on 10/15/18 at 0719 by Erick Andrade. Results were verbalized back. ESBL E col RX M.I.C. --- --------- Amikacin S <=16 Ampicillin R >16 Amp/Sul I 16/8 Cefazolin R >16 Cefepime R >16 Cefotaxime R >32 Cefoxitin S <=8 Ceftriaxone R >32 Cefuroxime R >16 Ciprofloxacin S <=1 Ertapenem S <=1 Gentamicin R >8 Imipenem S <=1 Levofloxacin S <=2 Nitrofurantoin S <=32 Tobramycin I 8 Trimeth/Sulfa R >2/38 Pip/Tazo S <=16 S = SENSITIVE I = INTERMEDIATE R = RESISTANT Imaging studies: Chest x-ray with possible right lower lobe pneumonia and left lower lobe pleural effusion per my interpretation CT CHEST Without Contrast: Pulmonary emphysema. Dependent atelectasis/pneumonitis. Cardiomegaly and surgical changes. Fatty liver. Radiologist: Bertin Avila M.D. CT ABDOMEN & PELVIS Without Contrast: The left kidney is absent. The right kidney is unremarkable. Cholelithiasis Fatty liver. No radiographic evidence of pancreatitis. Ca lcification in the prostate. No evidence of colitis. Appendix not identified Vascular bypass grafts. Subcutaneous edema in the back. Fat-containing ventral hernia. Intrathoracic findings as reported. Radiologist: Bertin Avila M.D. Consultation: A consultation was placed with Dr. Frias. The case was discussed and diagnostics were reviewed. The patient was evaluated in the ER for further treatment. This appears to be consistent with pneumonia and UTI. Patient was hypoxic. He was quite weak. He was started on steroids, antibiotics for possible pneumonia and UTI, prior urine culture reviewed and medicated as above. Medicine was consulted. He will be evaluated for admission. By the evaluation outlined above emergent etiologies such as otitis, pharyngitis, meningitis, sepsis, bacteremia, as well as others were deemed relatively unlikely. Per the patient's request, I spoke to the patient's son James, and all questions were answered. Apparently the patient's been sick since last night. No known Covid exposures. No recent travel. The pt informed about the findings as listed above. All questions were answered and pleased with the treatment. The chart was completed utilizing [employer] voice recognition software. Grammatical errors, random word insertions, pronoun errors, and incomplete sentences are an occassional consequence of this system due to software limitations, ambient noise, and hardware issues. Any formal questions or concerns about the content, text, or information contained within the body of this dictation should be directly addressed to the physician phys assistant for clarification. Impression & Plan Pneumonia, UTI (urinary tract infection), Hypoxemia Discharge Plan Visit Data Chief Complaint: Shortness of Breath/Dyspnea Stated Complaint: SOB, BACK PAIN, FEVER ED Provider: Diony Andrews ED Midlevel Provider: Rosalva Khan Discharge Problem: Pneumonia, UTI (urinary tract infection), Hypoxemia Patient Disposition: Admitted As Inpatient Condition: Fair Discharge Instructions Interventions: ED Discharge Assessment Last Done: 07/03/20 01:35 Forms Stand Alone Forms: [facility] Appraisals Prescriptions Prescriptions: No Action (DME) Oxygen Home Liters Per Minute See Dose Instructions .ROUTE .MEDSUPPLY Qty: 1 RF: 0 omega 8-ggz-jvl-fish oil [Ultra [place]-3] 500-1,000 mg capsule 2 cap PO DAILY RF: 0 finasteride [Proscar] 5 mg tablet 5 mg PO DAILY Qty: 90 RF: 3 trazodone 50 mg tablet 50 mg PO HS RF: 0 pravastatin 40 mg tablet 40 mg PO QPM RF: 0 clopidogrel 75 mg tablet 75 mg PO QPM RF: 0 allopurinol 100 mg tablet 100 mg PO QAM RF: 0 famotidine 20 mg tablet 20 mg PO BID RF: 0 metoprolol tartrate 50 mg tablet 50 mg PO BID RF: 0 hydralazine 10 mg tablet 10 mg PO TID RF: 0 amlodipine [Norvasc] 10 mg tablet 10 mg PO QPM RF: 0 cyanocobalamin (vitamin B-12) 100 mcg Tablet 100 mcg PO QAM RF: 0 fluticasone propion-salmeterol 113-14 mcg/actuation aerosol powdr breath activated 1 inh INHALATION BID RF: 0 multivitamin with minerals [Hair,Skin and Nails] Tablet 1 tab PO DAILY RF: 0 turmeric 400 mg Capsule 400 mg PO QAM RF: 0 Referrals Referrals: Luis Armando Syed DO [Primary Care Provider] - Discharge Problem: Pneumonia Qualifiers: Pneumonia type: due to unspecified organism Laterality: right Lung location: lower lobe of lung Qualified Code(s): J18.9 - Pneumonia, unspecified organism
[2020-07-02] MEDS ORDERED: LEVALBUTEROL TARTRATE 15 GM HFA.AER.AD INH STA (23:00)
[2020-07-02] MEDS ORDERED: METOPROLOL TARTRATE 50 MG TAB PO STA (23:06)
[2020-07-02] MEDS ORDERED: PIPERACILL/TAZOBAC CONSULT ACTIVE PRN (23:35)
[2020-07-02] MEDS ORDERED: PIPERACILLIN/TAZOBACTAM 4.5 GM/120 ML BAG IV ONE (23:35)
--- NOTE | 2020-07-03 | Emergency Department Note ---
ED Visit Note I have personally evaluated this patient examined her and reviewed the pertinent labs and data. I have discussed the case with Atiya Khan, the physician community assistant and agree with the plan. Please refer to the PA note This patient has a complex medical history including CHF and COPD comes in after having fever and shortness of breath. When he arrived he was found to be hypoxemic on room air. This has improved with supplemental oxygen. On my exam he is resting comfortably on supplemental oxygen. His chest x-ray does show a pleural effusion on the left that is small to moderate in size and possible infiltrate in the right base. We have given him IV antibiotics. Covid testing is pending but I do think he needs to be admitted for IV antibiotics further treatment and evaluation for possible sepsis. .
[2020-07-03 00:03] LABS: Calcium 9.5 mg/dl (8.5-10.1); Creatinine Clr Calc Pharmacy 42.6 ml/min; Est GFR (African American) 41.8; Est GFR (Non-African American) 36.1; Magnesium 1.8 mg/dl (1.8-2.4); Potassium 4.9 mmol/L (3.5-5.1)
[2020-07-03] MEDS ORDERED: SODIUM CHLORIDE 0.9% 1000ML 500 ML IV ONE (00:06)
[2020-07-03] MEDS ORDERED: SODIUM CHLORIDE 0.9% 1000ML 1,000 ML IV ONE (00:06)
[2020-07-03 00:08] LABS: Albumin Globulin Ratio 0.7 (0.9-2); Bilirubin,Total 0.4 mg/dl (0.2-1); Globulin 4.2 gm/dl (2.5-4.0); Total Protein 7.2 gm/dl (6.4-8.2); Troponin I 0.015 ng/ml (0-0.045)
[2020-07-03 00:14] LABS: Basophils # (auto) 0.02 K/uL (0-0.2); Basophils % (auto) 0.2 %; Hemoglobin 16.2 g/dL (14.0-18.0); Immature Granulocytes # (auto) 0.02 K/uL (0.00-0.02); Immature Granulocytes % (auto) 0.2 %; Lymphocytes # (auto) 1.03 K/uL (1.2-3.4); Lymphocytes % (auto) 10.6 %; Mean Corpuscular Hemoglobin 32.3 pg (25-34); Mean Corpuscular Hgb Conc 33.1 g/dL (32-36); Mean Corpuscular Volume 97.8 fL (80-100); Mean Platelet Volume 10.4 fL (7.4-10.4); Monocytes # (auto) 1.67 K/uL (0.11-0.59); Monocytes % (auto) 17.2 %; Neutrophils # (auto) 6.98 K/uL (1.4-6.5); Neutrophils % (auto) 71.8 %; Platelet Count 174 K/uL (130-400); RDW Coefficient of Variation 14.4 % (11.5-14.5); RDW Standard Deviation 51.9 fL (36.4-46.3); Red Blood Count 5.01 M/uL (4.7-6.1); White Blood Count 9.72 K/uL (4.8-10.8)
[2020-07-03 00:17] LABS: HCO3 VBG 28 mmol/L; Oxygen Saturation VBG 68.9 %; PCO2 VBG 50 mmHg (38-50); PO2 VBG 36 mmHg; pH VBG 7.37 (7.36-7.41)
[2020-07-03 00:42] LABS: Influenza A virus by PCR Negative (Neg); Influenza B virus by PCR Negative (Neg); RSV by PCR Negative (Neg); SARS CoV2 RNA(COVID-19) InHosp NEGATIVE (Negative)
[2020-07-03 00:50] LABS: Appearance Urine Cloudy (Clear); Bacteria Urine Automated 1+ (Negative); Bilirubin Urine Negative (Negative); Blood Urine 1+ (Negative); Color Urine Yellow; Glucose Urine UA Negative (Negative); Ketones Urine Negative (Negative); Leukocyte Esterase Urine 1+ (Negative); Nitrite Urine Positive (Negative); Protein Urine 3+ (Negative); Specific Gravity Urine 1.021 (1.000-1.030); Urobilinogen Urine Negative (Negative); WBC Urine Automated >30 /hpf (0-5)
[2020-07-03] MEDS ORDERED: MAGNESIUM SULFATE / D5W 1 GM/100 ML BAG IV ONE (00:54)
--- NOTE | 2020-07-03 00:58 | History & Physical Report ---
Date of Service July 03, 2020 Assessment & Plan (1) Respiratory failure, acute and chronic: Secondary to COPD exacerbation, complicated bronchitis Possible sepsis Hypertensive urgency secondary to discomfort ARF on CRI secondary to illness, history solitary kidney CAD status post CABG Chronic diastolic failure (EF 50-55%, TTE 2019), patient on the dry side PVD status post surgery hx recurrent CVA, hx ICH as per records hyperglycemia, probable prediabetes, hemoglobin A1c 5.25 October 2019 Chronic cognitive impairment, possible dementia as per , mentation at baseline as per History ESBL E. coli UTI Medical telemetry for hypertensive urgency Supplemental O2 Baseline ABG CS, Doxycycline Nebs, prednisone course Pulmonary consult if without improvement (Patient known to [facility].) Facilitate home BP meds Baseline UA, monitor creatinine response to IVF Update hemoglobin A1c, may need insulin if BSGs elevated with prednisone Rx PT OT eval DVT prophylaxis. Heparin subcu DNR as per patient's prior directives to his . Patient's requesting updates providers Ms. Nereida Cardona, contact #[phone]. Text document was generated using [employer] voice recognition software. It may contain grammatical or spelling errors. Kindly contact undersigned for clarification of any documentation item in question. History of Present Illness Chief Complaint: Shortness of breath, needing more oxygen as per Primary Care Provider: Luis Armando Syed DO History obtained from patient, family, and records. History somewhat limited from patient secondary to baseline cognitive impairment (possible dementia as per ). Medical history significant for CAD status post CABG, CHF as per records (EF 50 to 55%, TTE 2019), HTN, PVD status post surgery, history recurrent CVA, hx ICH, COPD, possible CAMILO (CPAP intolerance as per records), past tobacco abuse, gout, CRI baseline creatinine 1.5-1.6, BPH status post surgery, history of solitary kidney, hx ESBL E. coli UTI. Last confinement October 2019 for partial small bowel obstruction resolved with conservative management. Today patient noted to have runny nose and cough symptoms, fever at home as per . Problems with the home furnace as well per . Patient breathing noted to be labored by . Needing more oxygen. Patient with achy back pain complaints as per . No known recent COVID-19 contacts. Patient denies chest pain. Mentation usual as per . Patient brought to the ER for evaluation. O2 sats 80s on room air. Patient received Decadron and Zosyn at the ER. 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, lives with wifeMedical history significant for Allergies Allergy/AdvReac Type Severity Reaction Status Date / Time aspirin AdvReac Intermediate RELAXES Verified 07/02/20 23:23 RECTUM atorvastatin AdvReac Intermediate RELAXED Verified 07/02/20 23:23 RECTAL SPHINCTER Home Medications Medication Instructions Recorded Confirmed Type allopurinol 100 mg PO QAM 07/13/18 07/02/20 History clopidogrel 75 mg PO QPM 07/13/18 07/02/20 History famotidine 20 mg PO BID 07/13/18 07/02/20 History metoprolol tartrate 50 mg PO BID 07/13/18 07/02/20 History pravastatin 40 mg PO QPM 07/13/18 07/02/20 History trazodone 50 mg PO HS 07/13/18 07/02/20 History amlodipine [Norvasc] 10 mg PO QPM 10/13/18 07/02/20 History cyanocobalamin (vitamin B-12) 100 mcg PO QAM 10/13/18 07/02/20 History Oxygen Home #1 ea 01/06/19 01/18/20 Rx turmeric 400 mg PO QAM 04/27/19 07/02/20 History hydralazine 10 mg tablet 10 mg PO TID tab 06/13/19 07/02/20 History fluticasone propion-salmeterol 1 inh INHALATION BID 10/26/19 07/02/20 History multivitamin with minerals 1 tab PO DAILY 11/15/19 07/02/20 History [Hair,Skin and Nails] omega 7-lzg-igy-fish oil 500 mg 2 cap PO DAILY cap 01/18/20 07/02/20 History (200mg-300mg)-1,000 mg capsule finasteride 5 mg tablet 5 mg PO DAILY #90 tab 03/20/20 07/02/20 Rx Past Med/Surg History Medical History Abnormal EKG BPH (benign prostatic hyperplasia) BPH with obstruction/lower urinary tract symptoms Cerebrovascular disease s/p multiple ischemic strokes Cholelithiasis CKD (chronic kidney disease), stage III COPD (chronic obstructive pulmonary disease) Coronary artery disease s/p CABG Dyslipidemia Gout Hearing deficit History of intracranial hemorrhage parenchymal hemorrhage perioperatively during / after carotid surgery Hypertension On anticoagulant therapy plavix daily On home oxygen therapy 2L N/C prn/HS Peripheral vascular disease Pulmonary nodule CXR [facility] 07/03/18: 1.3 cm right midlung nodule, slightly enlarged compared to 04/18/15. F/U with CT recommended. Sepsis hx of Solitary kidney atrophic left kidney, nephrectomy performed for hypertension Stroke x5---per has aphasia, right arm weakness/loss of peripheral vision Urinary retention UTI (urinary tract infection) due to Enterococcus Surgical History History of bronchoscopy x2 History of cardiac cath x2----no stents History of colonoscopy History of tooth extraction all upper teeth Status post abdominal aortic aneurysm (AAA) repair 1998 @ [facility] Status post carotid endarterectomy 09/30/2013--left @ [facility] Status post coronary artery bypass graft 1998 @ [facility] Status post nephrectomy left atrophic, nonfunctional associated with hypertension Status post transurethral resection of prostate Family History Sister Family history of diabetes mellitus Brother Family history of diabetes mellitus Other No family history of adverse response to anesthesia Social History Smoking Status: Former smoker Cigarettes Per Day: 20-40; Second Hand Exposure: No; Do You Dip or Chew Tobacco: Yes (Former); Tobacco Cessation Education Requested by Patient: No Hx Alcohol Use: No Hx Substance Use: No Preferred Language: Danish Communication Ability: Effective Visual Impairment: No Limitations Hearing Ability: Normal 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 Required: No Beliefs That Will Affect Care: None Current Living Situation: Spouse Current Living Situation Comment: with and sister Other Information That Helps Us Care for You: No Feels Safe at Home: Yes Safety Concerns: Feels Safe At This Time Assistive Devices: None Review of Systems Review of Systems: As per HPI, all 10 systems reviewed, all other ROS negative Physical Exam Physical Exam: GENERAL: Obese, coherent but not oriented to date, month, and and year; minimal respiratory distress, audible wheezing, mild hearing impairment SKIN: Normal color, warm HEENT: Hodgkins palpebral conjunctivae, no ptosis, dry buccal mucosa, nasal cannula in place NECK : Supple, short neck, no tenderness CHEST : Decreased breath sounds, expiratory wheezes, no tenderness HEART : Tachycardic, no obvious murmurs ABDOMEN: distention, nontender EXTREMITIES : Minimal LE swelling, no LE tenderness, no other conspicuous deformities noted NEUROLOGIC : Coherent, oriented to place, no facial asymmetry, mild hearing impairment, no other gross focality Results & Data Results & Data ([facility]) Vital Signs (Past 12 Hours) Vital Signs Temp Pulse Resp BP Pulse Ox 07/03/20 00:31 90 20 147/102 H 92 07/03/20 00:06 20 95 07/03/20 00:00 86 27 H 161/97 H 93 07/02/20 23:30 101 H 27 H 162/98 H 93 07/02/20 23:28 101 H 22 161/104 H 94 07/02/20 23:12 103 H 24 169/96 H 95 07/02/20 22:49 20 95 07/02/20 22:26 108 H 26 H 94 07/02/20 22:14 37.2 C 117 H 26 H 178/98 H 85 L Laboratory Results Laboratory Results WBC 9.72 K/uL (4.8-10.8) 07/03/20 00:03 RBC 5.01 M/uL (4.7-6.1) 07/03/20 00:03 Hgb 16.2 g/dL (14.0-18.0) 07/03/20 00:03 Hct 49.0 % (42-52) 07/03/20 00:03 MCV 97.8 fL (80-100) 07/03/20 00:03 MCH 32.3 pg (25-34) 07/03/20 00:03 MCHC 33.1 g/dL (32-36) 07/03/20 00:03 RDW Std Deviation 51.9 fL (36.4-46.3) H 07/03/20 00:03 RDW Coeff of Ketan 14.4 % (11.5-14.5) 07/03/20 00:03 Plt Count 174 K/uL (130-400) 07/03/20 00:03 MPV 10.4 fL (7.4-10.4) 07/03/20 00:03 Immature Gran % (Auto) 0.2 % 07/03/20 00:03 Neut % (Auto) 71.8 % 07/03/20 00:03 Lymph % (Auto) 10.6 % 07/03/20 00:03 [place] % (Auto) 17.2 % 07/03/20 00:03 Eos % (Auto) 0.0 % 07/03/20 00:03 Baso % (Auto) 0.2 % 07/03/20 00:03 Neut # (Auto) 6.98 K/uL (1.4-6.5) H 07/03/20 00:03 Lymph # (Auto) 1.03 K/uL (1.2-3.4) L 07/03/20 00:03 [place] # (Auto) 1.67 K/uL (0.11-0.59) H 07/03/20 00:03 Eos # (Auto) 0.00 K/uL (0-0.5) 07/03/20 00:03 Baso # (Auto) 0.02 K/uL (0-0.2) 07/03/20 00:03 Immature Gran # (Auto) 0.02 K/uL (0.00-0.02) 07/03/20 00:03 Absolute Nucleated RBC Cancelled 07/02/20 Unknown Nucleated RBC % (auto) Cancelled 07/02/20 Unknown Neutrophils % (Manual) Cancelled 07/02/20 Unknown Band Neutrophils % Cancelled 07/02/20 Unknown Lymphocytes % (Manual) Cancelled 07/02/20 Unknown Prolymphocyte % Cancelled 07/02/20 Unknown Reactive Lymphs % (Man) Cancelled 07/02/20 Unknown Monocytes % (Manual) Cancelled 07/02/20 Unknown Eosinophils % (Manual) Cancelled 07/02/20 Unknown Basophils % (Manual) Cancelled 07/02/20 Unknown Metamyelocytes % (Man) Cancelled 07/02/20 Unknown Myelocytes % (Man) Cancelled 07/02/20 Unknown Promyelocytes % (Man) Cancelled 07/02/20 Unknown Blast Cells % (Manual) Cancelled 07/02/20 Unknown Plasma Cell % (Manual) Cancelled 07/02/20 Unknown Other Cells % Cancelled 07/02/20 Unknown Nucleated RBC % Cancelled 07/02/20 Unknown Neutrophils # (Manual) Cancelled 07/02/20 Unknown Band Neutrophils # Cancelled 07/02/20 Unknown Total Absolute Neuts Cancelled 07/02/20 Unknown Lymphocytes # (Manual) Cancelled 07/02/20 Unknown Prolymphocyte # Cancelled 07/02/20 Unknown Reactive Lymphs # Cancelled 07/02/20 Unknown Total Abs Lymphocytes Cancelled 07/02/20 Unknown Monocytes # (Manual) Cancelled 07/02/20 Unknown Eosinophils # (Manual) Cancelled 07/02/20 Unknown Basophils # (Manual) Cancelled 07/02/20 Unknown Metamyelocytes # (Man) Cancelled 07/02/20 Unknown Myelocytes # (Manual) Cancelled 07/02/20 Unknown Promyelocytes # (Man) Cancelled 07/02/20 Unknown Blast Cells # (Man) Cancelled 07/02/20 Unknown Plasma Cell # (Manual) Cancelled 07/02/20 Unknown Other Cells # Cancelled 07/02/20 Unknown Nucleated RBCs # (Man) Cancelled 07/02/20 Unknown Hypersegmented Neuts Cancelled 07/02/20 Unknown Hyposegmented Neuts Cancelled 07/02/20 Unknown Hypogranular Neuts Cancelled 07/02/20 Unknown Large Granular Lymphs Cancelled 07/02/20 Unknown # Lrg Granular Lymphs Cancelled 07/02/20 Unknown Hairy Cells Cancelled 07/02/20 Unknown Smudge Cells Cancelled 07/02/20 Unknown Toxic Granulation Cancelled 07/02/20 Unknown Toxic Vacuolation Cancelled 07/02/20 Unknown Dohle Bodies Cancelled 07/02/20 Unknown Bill Rods Cancelled 07/02/20 Unknown Platelet Estimate Cancelled 07/02/20 Unknown Hypogranular Platelets Cancelled 07/02/20 Unknown Clumped Platelets Cancelled 07/02/20 Unknown Giant Platelets Cancelled 07/02/20 Unknown Platelet Satelliting Cancelled 07/02/20 Unknown RBC Morphology Cancelled 07/02/20 Unknown Polychromasia Cancelled 07/02/20 Unknown Hypochromasia Cancelled 07/02/20 Unknown Poikilocytosis Cancelled 07/02/20 Unknown Basophilic Stippling Cancelled 07/02/20 Unknown Anisocytosis Cancelled 07/02/20 Unknown Microcytosis Cancelled 07/02/20 Unknown Macrocytosis Cancelled 07/02/20 Unknown Spherocytes Cancelled 07/02/20 Unknown Pappenheimer Bodies Cancelled 07/02/20 Unknown Sickle Cells Cancelled 07/02/20 Unknown Target Cells Cancelled 07/02/20 Unknown Tear Drop Cells Cancelled 07/02/20 Unknown Ovalocytes Cancelled 07/02/20 Unknown Stomatocytes Cancelled 07/02/20 Unknown K[place]-Bevington Bodies Cancelled 07/02/20 Unknown Echinocytes Cancelled 07/02/20 Unknown Acanthocytes (Spur) Cancelled 07/02/20 Unknown Rouleaux Cancelled 07/02/20 Unknown RBC Agglutinates Cancelled 07/02/20 Unknown Schistocytes Cancelled 07/02/20 Unknown RBC Morph Comment Cancelled 07/02/20 Unknown Sezary Cell Cancelled 07/02/20 Unknown VBG pH 7.37 (7.36-7.41) 07/03/20 00:03 VBG pCO2 50 mmHg (38-50) 07/03/20 00:03 VBG pO2 36 mmHg 07/03/20 00:03 VBG HCO3 28 mmol/L 07/03/20 00:03 VBG O2 Saturation 68.9 % 07/03/20 00:03 VBG Base Excess 2.0 mEq/L 07/03/20 00:03 Carboxyhemoglobin 0.0 % THgb 07/02/20 23:36 Sodium 139 mmol/L (136-145) 07/02/20 Unknown Potassium 4.9 mmol/L (3.5-5.1) 07/02/20 Unknown Chloride 105 mmol/L (98-107) 07/02/20 Unknown Carbon Dioxide 27 mmol/L (21-32) 07/02/20 Unknown Anion Gap 7.0 (3-11) 07/02/20 Unknown BUN 26 mg/dl (7-18) H 07/02/20 Unknown Creatinine 1.83 mg/dl (0.6-1.4) H 07/02/20 Unknown Est Cr Clr Drug Dosing 42.6 ml/min 07/02/20 Unknown Est GFR ( Amer) 41.8 07/02/20 Unknown Est GFR (Non-Af Amer) 36.1 07/02/20 Unknown BUN/Creatinine Ratio 14.0 (10-20) 07/02/20 Unknown Glucose 131 mg/dl (70-99) H 07/02/20 Unknown Lactate 1.5 mmol/L (0.4-2.0) 07/02/20 23:30 Calcium 9.5 mg/dl (8.5-10.1) 07/02/20 Unknown Magnesium 1.8 mg/dl (1.8-2.4) 07/02/20 Unknown Total Bilirubin 0.4 mg/dl (0.2-1) 07/02/20 Unknown AST 30 U/L (15-37) 07/02/20 Unknown ALT 52 U/L (12-78) 07/02/20 Unknown Alkaline Phosphatase 104 U/L (45-117) 07/02/20 Unknown Ammonia Cancelled 07/03/20 00:03 Troponin I 0.015 ng/ml (0-0.045) 07/02/20 Unknown Total Protein 7.2 gm/dl (6.4-8.2) 07/02/20 Unknown Albumin 3.0 gm/dl (3.4-5.0) L 07/02/20 Unknown Globulin 4.2 gm/dl (2.5-4.0) H 07/02/20 Unknown Albumin/Globulin Ratio 0.7 (0.9-2) L 07/02/20 Unknown Specimen Hemolysis 07/02/20 Unknown Urine Color Yellow 07/03/20 00:25 Urine Appearance Cloudy (Clear) A 07/03/20 00:25 Urine pH 5.0 (4.5-7.5) 07/03/20 00:25 Ur Specific [place] 1.021 (1.000-1.030) 07/03/20 00:25 Urine Protein 3+ (Negative) H 07/03/20 00:25 Urine Glucose (UA) Negative (Negative) 07/03/20 00:25 Urine Ketones Negative (Negative) 07/03/20 00:25 Urine Blood 1+ (Negative) H 07/03/20 00:25 Urine Nitrite Positive (Negative) A 07/03/20 00:25 Urine Bilirubin Negative (Negative) 07/03/20 00:25 Urine Urobilinogen Negative (Negative) 07/03/20 00:25 Ur Leukocyte Esterase 1+ (Negative) H 07/03/20 00:25 Urine WBC (Auto) >30 /hpf (0-5) H 07/03/20 00:25 Urine RBC (Auto) 5-10 /hpf (0-4) H 07/03/20 00:25 U Hyaline Cast (Auto) 5-10 /lpf (0-5) H 07/03/20 00:25 U Epithel Cells (Auto) 10-20 /lpf (0-5) H 07/03/20 00:25 Urine Bacteria (Auto) 1+ (Negative) H 07/03/20 00:25 COVID-19 Eval Order CovFluRsv at [facility] 07/02/20 23:29 SARS-CoV-2 (PCR) NEGATIVE (Negative) 07/02/20 23:29 Influenza Type A (PCR) Negative (Neg) 07/02/20 23:29 Influenza Type B (PCR) Negative (Neg) 07/02/20 23:29 RSV (RT-PCR) Negative (Neg) 07/02/20 23:[address] chest initial read: Pulmonary emphysema. Dependent atelectasis/pneumonitis. Cardiomegaly. Fatty liver. CT abdomen pelvis initial read. Left kidney absent. Right kidney unremarkable. Cholelithiasis, fatty liver. Prostate calcification. No colitis. Appendix not identified. Vascular bypass grafts. Subcutaneous edema in the back. EKG as per my interpretation: Rate 105, sinus tachycardia, normal axis, no ischemia, low voltage
[2020-07-03] MEDS ORDERED: DOXYCYCLINE HYCLATE 100 MG in DEXTROSE 5% 100 ML IV STA (02:47)
[2020-07-03] MEDS ORDERED: amLODIPine BESYLATE 5 MG TAB PO STA (02:57)
[2020-07-03] MEDS ORDERED: XOPENEX/ATROVENT 1.25mg/0.5MG NEB COMBO NEB SCH (03:38)
[2020-07-03] MEDS ORDERED: ACETAMINOPHEN 325 MG TAB PO PRN (03:38)
[2020-07-03] MEDS: hydrALAZINE 10 MG TAB PO SCH ×4 (05:20→19:50)
[2020-07-03 05:44] LABS: Estimated Average Glucose 137 mg/dl; Hemoglobin A1C 6.4 % (4.5-5.6)
[2020-07-03 06:25] LABS: Basophils # (auto) 0.02 K/uL (0-0.2); Basophils % (auto) 0.2 %; Hematocrit (blood only) 47.5 % (42-52); Hemoglobin 15.9 g/dL (14.0-18.0); Immature Granulocytes # (auto) 0.01 K/uL (0.00-0.02); Immature Granulocytes % (auto) 0.1 %; Lymphocytes # (auto) 1.03 K/uL (1.2-3.4); Lymphocytes % (auto) 11.7 %; Mean Corpuscular Hemoglobin 32.3 pg (25-34); Mean Corpuscular Hgb Conc 33.5 g/dL (32-36); Mean Corpuscular Volume 96.5 fL (80-100); Mean Platelet Volume 9.6 fL (7.4-10.4); Monocytes # (auto) 0.46 K/uL (0.11-0.59); Monocytes % (auto) 5.2 %; Neutrophils # (auto) 7.26 K/uL (1.4-6.5); Neutrophils % (auto) 82.8 %; Platelet Count 160 K/uL (130-400); RDW Coefficient of Variation 14.2 % (11.5-14.5); RDW Standard Deviation 50.3 fL (36.4-46.3); Red Blood Count 4.92 M/uL (4.7-6.1); White Blood Count 8.78 K/uL (4.8-10.8)
[2020-07-03 06:52] LABS: Est GFR (African American) 47.4; Est GFR (Non-African American) 40.9; Potassium 4.7 mmol/L (3.5-5.1)
--- NOTE | 2020-07-03 06:52 | CT Scan Report ---
CT OF THE ABDOMEN AND PELVIS WITHOUT CONTRAST CLINICAL HISTORY: Back pain. COMPARISON STUDY: CT of the abdomen and pelvis November 15, 2019. TECHNIQUE: Axial images of the abdomen and pelvis were obtained without IV contrast. Images were revi ewed in the axial, sagittal, and coronal planes. Automated exposure control was utilized for the pavithra dy. A dose lowering technique was utilized adhering to the principles of ALARA. FINDINGS: Please note that the chest CT will be reported separately. The left kidney is not visualize d. The right kidney is unremarkable on this unenhanced examination. There is no hydronephrosis. There are no urinary calculi. No abdominal or pelvic lymphadenopathy is present. Evaluation of the abdomen and pelvis is suboptimal on this unenhanced exam. Hepatic steatosis is noted. There are gallstones w ithin the gallbladder. There is no peripancreatic or pericholecystic infiltration. Several pancreatic parenchymal calcifications are noted. There is no biliary or pancreatic ductal dilatation. Unenhance d images of the spleen, adrenal glands are unremarkable. There is no evidence for a bowel obstruction . Exam is compromised by body wall contacting the gantry. The appendix is not visualized. There is no right lower quadrant inflammation. Aortobifemoral bypass graft is suboptimally assessed on this unen hanced exam. No acute fracture or suspicious lesion is identified within the visualized skeletal stru ctures. IMPRESSION: 1. No acute process within the abdomen or pelvis on unenhanced exam. 2. Cholelithiasis. 3. Hepatic steatosis. 4. Status post left nephrectomy. 5. No bowel obstruction. ACT 112: Negative or not required by law. Electronically signed by: Mario Baker M.D. 07/03/2020 6:50 AM
[2020-07-03 06:53] LABS: BUN Creatinine Ratio 16.1 (10-20); Calcium 9.2 mg/dl (8.5-10.1); Creatinine Clr Calc Pharmacy 47.7 ml/min
--- NOTE | 2020-07-03 07:00 | CT Scan Report ---
CT chest diagnostic wo con CLINICAL HISTORY: Chest pain and shortness of breath. COMPARISON STUDY: CT scan dated 12/30/2018, chest x-ray dated July 02, 2020 CT DOSE: TECHNIQUE: CT of the thorax was performed from the thoracic inlet to the lung bases. Images are revi ewed in the axial, sagittal, and coronal planes. IV contrast was not administered for this examinatio n. A dose lowering technique was utilized adhering to the principles of ALARA. FINDINGS: Thyroid: Imaged portions of the thyroid gland are normal in appearance. Thoracic aorta: There is mild ectasia of descending thoracic aorta which measures 36 mm. Heart: There are coronary artery calcifications. There is no significant pericardial effusion Lungs and pleural spaces: There are no pleural effusions. There are lingular and bilateral lower lobe dependent atelectatic changes. There is pulmonary emphysema. There is a small amount of debris withi n the distal trachea and left mainstem bronchus. Mediastinum: There is no evidence of pathologic mediastinal lymphadenopathy. Eliza: There is no evidence of pathologic hilar adenopathy given the limitations of a noncontrast stud y. Axilla: There is no evidence of pathologic axillary lymphadenopathy Upper abdomen: There is hepatic steatosis. Skeletal structures: There are no lytic or blastic osseous lesions. IMPRESSION: 1. No evidence of pathologic adenopathy given the limitations of a noncontrast study 2. No areas of parenchymal consolidation to indicate pneumonia 3. Areas of atelectasis within the lingula and both lower lobes 4. Small amount of debris within the trachea and left mainstem bronchus 5. Hepatic steatosis ACT 112: Negative or not required by law. Electronically signed by: Manjinder Booker M.D. 07/03/2020 6:59 AM
[2020-07-03] MEDS: LEVALBUTEROL 1.25MG/0.5ML NEB INH SCH ×3 (07:07→19:20)
[2020-07-03] MEDS: IPRATROPIUM BROMIDE NEB SOLN 0.02% 2.5 ML VIAL INH SCH ×3 (07:07→19:20)
--- NOTE | 2020-07-03 07:16 | XRay Report ---
XR chest 1V portable CLINICAL HISTORY: SEPSIS COMPARISON STUDY: 11/15/2019 FINDINGS: The heart is the upper limits of normal in size. There are postsurgical changes of a midlin e sternotomy. There is no failure. There are basilar opacities, statistically atelectatic. There is p ulmonary emphysema.[ IMPRESSION: 1. Pulmonary emphysema 2. Nonspecific basilar opacity statistically atelectatic ACT 112: Negative or not required by law. Electronically signed by: Manjinder Booker M.D. 07/03/2020 7:14 AM
[2020-07-03] MEDS: HEPARIN SOD 5,000 UNIT/0.5 ML VIAL SQ SCH ×3 (08:59→19:49)
[2020-07-03] MEDS: predniSONE 20 MG TAB PO SCH (08:59)
[2020-07-03] MEDS: allopurinoL 100 MG TAB PO SCH (08:59)
[2020-07-03] MEDS: CYANOCOBALAMIN (VITAMIN B-12) 100 MCG TABLET PO SCH (08:59)
[2020-07-03] MEDS: FAMOTIDINE 20 MG TAB PO SCH ×2 (08:59→19:49)
[2020-07-03] MEDS: CEROVITE ADV FORMULA TAB PO SCH (08:59)
[2020-07-03] MEDS ORDERED: hydrALAZINE 10 MG TAB PO SCH (09:00)
[2020-07-03] MEDS: METOPROLOL TARTRATE 50 MG TAB PO SCH ×2 (09:00→19:49)
[2020-07-03] MEDS: FINASTERIDE 5 MG TAB PO SCH (09:00)
[2020-07-03] MEDS ORDERED: hydrALAZINE HCL 20 MG/ML VIAL IV PRN (10:19)
--- NOTE | 2020-07-03 10:19 | Communication Note ---
Date of Service: July 03, 2020 Patient was seen and examined this morning. He was awake and alert. Oriented to place but not person or time. I spoke with his as well and she states that lately he has been confused. No diagnosis of dementia. Still mother and sister had dementia. At baseline. Still uses 3 L of oxygen with ambulation. Currently he has been ranging between 3 to 4 L of oxygen. We will continue with doxycycline. Work with PT/OT. Blood pressure remains on the high side continue with amlodipine/hydralazine and metoprolol. Will add hydralazine PRN for SBP >180. Monitor ins and outs along with daily weights. Blood and urine cultures are pending. Continue bronchodilators and prednisone.
[2020-07-03] MEDS ORDERED: PIPERACILL/TAZOBAC CONSULT ACTIVE PRN (12:51)
[2020-07-03] MEDS ORDERED: PIPERACILLIN/TAZOBACTAM 4.5 GM in DEXTROSE 5% 100 ML IV ONE (14:00)
[2020-07-03] MEDS: PIPERACILLIN/TAZOBACTAM 4.5 GM in DEXTROSE 5% 100 ML IV SCH (17:42)
[2020-07-03] MEDS: PRAVASTATIN SOD 40 MG TAB PO SCH (19:49)
[2020-07-03] MEDS: amLODIPine BESYLATE 5 MG TAB PO SCH (19:49)
[2020-07-03] MEDS: traZODone HCL 50 MG TAB PO SCH (19:49)
[2020-07-03] MEDS: CLOPIDOGREL BISULFATE 75 MG TAB PO SCH (19:49)
[2020-07-03] MEDS ORDERED: DOXYCYCLINE HYCLATE 100 MG CAP PO SCH (21:00)
[2020-07-04] MEDS: IPRATROPIUM BROMIDE NEB SOLN 0.02% 2.5 ML VIAL INH SCH ×3 (01:11→13:29)
[2020-07-04] MEDS: LEVALBUTEROL 1.25MG/0.5ML NEB INH SCH ×3 (01:12→13:29)
[2020-07-04] MEDS: PIPERACILLIN/TAZOBACTAM 4.5 GM in DEXTROSE 5% 100 ML IV SCH ×3 (01:37→17:40)
[2020-07-04] MEDS: HEPARIN SOD 5,000 UNIT/0.5 ML VIAL SQ SCH ×3 (05:21→20:05)
--- NOTE | 2020-07-04 05:54 | Electrocardiogram Report ---
Test Reason : Blood Pressure : / mmHG Vent. Rate : 106 BPM Atrial Rate : 106 BPM P-R Int : 162 ms QRS Dur : 084 ms QT Int : 344 ms P-R-T Axes : 032 052 033 degrees QTc Int : 456 ms Sinus tachycardia Low voltage QRS Borderline ECG When compared with ECG of 22-OCT-2019 13:13, Nonspecific T wave abnormality, improved in Inferior leads Nonspecific T wave abnormality no longer evident in Lateral leads Confirmed by Samuel Wallace ([id number]) on 07/04/2020 5:53:41 AM Referred By: REFERRED SELF Confirmed By:Samuel Wallace
[2020-07-04] MEDS: hydrALAZINE 10 MG TAB PO SCH ×3 (08:08→20:01)
[2020-07-04] MEDS: CYANOCOBALAMIN (VITAMIN B-12) 100 MCG TABLET PO SCH (08:08)
[2020-07-04] MEDS: allopurinoL 100 MG TAB PO SCH (08:08)
[2020-07-04] MEDS: predniSONE 20 MG TAB PO SCH (08:08)
[2020-07-04] MEDS: FAMOTIDINE 20 MG TAB PO SCH ×2 (08:08→20:04)
[2020-07-04] MEDS: FINASTERIDE 5 MG TAB PO SCH (08:08)
[2020-07-04] MEDS: METOPROLOL TARTRATE 50 MG TAB PO SCH ×2 (08:08→20:02)
[2020-07-04] MEDS: CEROVITE ADV FORMULA TAB PO SCH (08:09)
--- NOTE | 2020-07-04 14:07 | Hospitalist Progress Note ---
Date of Service July 04, 2020 Assessment & Plan (1) Respiratory failure, acute and chronic: Secondary to COPD exacerbation, complicated bronchitis Has been on nebs and steroid and also oxygen as needed and doxycycline Clinically a lot better We will continue current management Hypertensive urgency secondary to discomfort Blood pressure has been improving CAD status post CABG Chronic diastolic failure (EF 50-55%, TTE 2019), patient on the dry side Denies any acute cardiac symptoms No signs and or symptoms of fluid overflow PVD status post surgery H/O recurrent CVA, hx ICH as per records Chronic cognitive impairment, possible dementia as per , mentation at base line as per (2) UTI (urinary tract infection): Has gram-negative bacilli UTI Further identification is pending We will continue current antibiotic History ESBL E. coli UTI (3) CKD (chronic kidney disease), stage III: ARF on CRI secondary to illness, history solitary kidney We will monitor kidney function while in the hospital (4) Pneumonia: Pneumonia has been ruled out DVT prophylaxis. Heparin subcu Patient's requesting updates providers Ms. Nereida Cardona, contact #[phone]. Admission and Anticipated Discharge Date Admission Date: July 03, 2020 Subjective 07/04/2020 The patient was seen and examined in medical telemetry unit Is a 70-year-old obese male with significant past medical history of CAD status post CABG, CHF with EF of 50 to 55%, hypertension, PVD, history of recurrent CVA, COPD and possible CAMILO was admitted with increasing shortness of breath and requiring more oxygen few days prior to admission He has been feeling a lot better since hospitalization Denies any significant symptoms of chest pain, palpitation, any abdominal pain, nausea or vomiting and denies any fever and/or chills Review of Systems Review of Systems: All systems reviewed and are unremarkable except as noted below Respiratory: + cough and + dyspnea (Moderate dyspnea at rest) Cardiovascular: no chest pain Neurologic: + generalized weakness Physical Exam Physical Exam: Lying in bed comfortably Constitutional: well developed, well nourished, + ill appearing, + obese and + in distress (Moderate shortness of breath at rest) Eyes: PERRL, conjunctivae normal, anicteric sclerae ENMT: external ear and nose normal, oropharynx normal Neck: trachea midline, no thyromegaly Respiratory: + respiratory distress (Moderate shortness of breath at rest) Auscultation: + diminished lung sounds and + wheezes (Minimal wheezing bilaterally) Cardiovascular: Rate/Rhythm: regular rate and regular rhythm Heart Sounds: no murmur Extremities: no edema Gastrointestinal (Abdomen): Inspection/Auscultation: normal bowel sounds; abdomen not distended Percussion/Palpation: abdomen soft; abdomen nontender Musculoskeletal: No acute arthritis in any joint Neurologic: Alert, awake and oriented x3. Generally weak Psychiatric: A+Ox3, euthymic affect Lymphatic: no cervical or axillary lymphadenopathy Results & Data Results & Data ([facility]) Vital Signs (Past 12 Hours) Vital Signs Temp Pulse Pulse Resp BP Pulse Ox 07/04/20 13:29 96 H 18 96 07/04/20 11:23 36.7 C 62 16 143/80 H 94 07/04/20 08:36 66 07/04/20 07:45 36.4 C L 93 H 16 155/73 H 90 07/04/20 07:15 79 18 96 07/04/20 04:01 37.0 C 86 20 125/69 97 Medications Administered Current Inpatient Medications Acetaminophen (Acetaminophen 325 Mg Tab) 650 mg PO Q4H PRN PRN Reason: Pain or Fever Stop: 08/02/20 03:37 Allopurinol (Allopurinol 100 Mg Tab) 100 mg PO QAM [facility] Stop: 08/02/20 08:59 Last Admin: 07/04/20 08:08 Dose: 100 mg Documented by: Amlodipine Besylate (Amlodipine Besylate 5 Mg Tab) 10 mg PO QPM [facility] Stop: 08/02/20 20:59 Last Admin: 07/03/20 19:49 Dose: 10 mg Documented by: Clopidogrel Bisulfate (Clopidogrel Bisulfate 75 Mg Tab) 75 mg PO QPM [facility] Stop: 08/02/20 20:59 Last Admin: 07/03/20 19:49 Dose: 75 mg Documented by: Cyanocobalamin (Cyanocobalamin (Vitamin B-12) 100 Mcg Tablet) 100 mcg PO QAM [facility]AL[facility] Stop: 08/02/20 08:59 Last Admin: 07/04/20 08:08 Dose: 100 mcg Documented by: Famotidine (Famotidine 20 Mg Tab) 20 mg PO BID [facility] Stop: 08/02/20 08:59 Last Admin: 07/04/20 08:08 Dose: 20 mg Documented by: Finasteride (Finasteride 5 Mg Tab) 5 mg PO DAILY [facility] Stop: 08/02/20 08:59 Last Admin: 07/04/20 08:08 Dose: 5 mg Documented by: Heparin Sodium (Porcine) (Heparin Sod 5,000 Unit/0.5 Ml Vial) 5,000 units SQ Q8 [facility] Stop: 08/02/20 05:59 Last Admin: 07/04/20 05:21 Dose: 5,000 units Documented by: Hydralazine HCl (Hydralazine 10 Mg Tab) 10 mg PO TID [facility] Stop: 08/02/20 04:04 Last Admin: 07/04/20 08:08 Dose: 10 mg Documented by: Hydralazine HCl (Hydralazine Hcl 20 Mg/Ml Vial) 5 mg IV Q6H PRN PRN Reason: hypertension Stop: 08/02/20 10:29 Piperacillin Sod/Tazobactam (Sod 4.5 gm/ Dextrose) 120 mls @ 30 mls/hr IV Q8H [facility]; Protocol Stop: 07/05/20 17:59 Last Infusion: 07/04/20 13:30 Dose: Infused Documented by: Ipratropium [place] (Ipratropium [place] Neb Soln 0.02% 2.5 Ml Vial) 0.5 mg INH Q6R [facility] Stop: 08/02/20 06:59 Last Admin: 07/04/20 13:29 Dose: 0.5 mg Documented by: Levalbuterol HCl (Levalbuterol 1.25mg/0.5ml Neb) 1.25 mg INH Q6R [facility] Stop: 08/02/20 06:59 Last Admin: 07/04/20 13:29 Dose: 1.25 mg Documented by: Metoprolol Tartrate (Metoprolol Tartrate 50 Mg Tab) 50 mg PO BID [facility] Stop: 08/02/20 08:59 Last Admin: 07/04/20 08:08 Dose: 50 mg Documented by: Miscellaneous Information (Piperacill/Tazobac Consult Active) 1 ea N/A UD PRN PRN Reason: Consult Stop: 08/02/20 12:50 Multivitamins/Minerals (Cerovite Adv Formula Tab) 1 tab PO DAILY [facility] Stop: 08/02/20 08:59 Last Admin: 07/04/20 08:09 Dose: 1 tab Documented by: Pravastatin Sodium (Pravastatin Sod 40 Mg Tab) 40 mg PO QPM [facility] Stop: 08/02/20 20:59 Last Admin: 07/03/20 19:49 Dose: 40 mg Documented by: Prednisone (Prednisone 20 Mg Tab) 40 mg PO DAILY [facility] Stop: 07/07/20 08:59 Last Admin: 07/04/20 08:08 Dose: 40 mg Documented by: Trazodone HCl (Trazodone Hcl 50 Mg Tab) 50 mg PO HS [facility] Stop: 08/02/20 20:59 Last Admin: 07/03/20 19:49 Dose: 50 mg Documented by: (1) UTI (urinary tract infection) Hematuria presence: without hematuria Urinary tract infection type: site unspecified Qualified Code(s): N39.0 - Urinary tract infection, site not specified (2) Pneumonia Laterality: right Lung location: lower lobe of lung Pneumonia type: due to unspecified organism Qualified Code(s): J18.9 - Pneumonia, unspecified organism
[2020-07-04] MEDS ORDERED: IPRATROPIUM BROMIDE NEB SOLN 0.02% 2.5 ML VIAL INH PRN (14:52)
[2020-07-04] MEDS ORDERED: LEVALBUTEROL 1.25MG/0.5ML NEB INH PRN (14:52)
[2020-07-04] MEDS: traZODone HCL 50 MG TAB PO SCH (20:01)
[2020-07-04] MEDS: amLODIPine BESYLATE 5 MG TAB PO SCH (20:03)
[2020-07-04] MEDS: PRAVASTATIN SOD 40 MG TAB PO SCH (20:04)
[2020-07-04] MEDS: CLOPIDOGREL BISULFATE 75 MG TAB PO SCH (20:04)
[2020-07-05] MEDS: PIPERACILLIN/TAZOBACTAM 4.5 GM in DEXTROSE 5% 100 ML IV SCH (02:01)
[2020-07-05] MEDS: HEPARIN SOD 5,000 UNIT/0.5 ML VIAL SQ SCH ×3 (05:41→19:35)
[2020-07-05 07:00] LABS: Basophils # (auto) 0.02 K/uL (0-0.2); Basophils % (auto) 0.2 %; Eosinophils # (auto) 0.02 K/uL (0-0.5); Eosinophils % (auto) 0.2 %; Hematocrit (blood only) 48.3 % (42-52); Hemoglobin 16.5 g/dL (14.0-18.0); Immature Granulocytes # (auto) 0.03 K/uL (0.00-0.02); Immature Granulocytes % (auto) 0.3 %; Lymphocytes # (auto) 2.41 K/uL (1.2-3.4); Lymphocytes % (auto) 24.8 %; Mean Corpuscular Hemoglobin 32.7 pg (25-34); Mean Corpuscular Hgb Conc 34.2 g/dL (32-36); Mean Corpuscular Volume 95.6 fL (80-100); Mean Platelet Volume 9.4 fL (7.4-10.4); Monocytes # (auto) 1.98 K/uL (0.11-0.59); Monocytes % (auto) 20.4 %; Neutrophils # (auto) 5.25 K/uL (1.4-6.5); Neutrophils % (auto) 54.1 %; Platelet Count 189 K/uL (130-400); RDW Coefficient of Variation 14.1 % (11.5-14.5); RDW Standard Deviation 49.2 fL (36.4-46.3); Red Blood Count 5.05 M/uL (4.7-6.1); White Blood Count 9.71 K/uL (4.8-10.8)
[2020-07-05 07:36] LABS: BUN Creatinine Ratio 17.7 (10-20); Calcium 9.2 mg/dl (8.5-10.1); Creatinine Clr Calc Pharmacy 42.4 ml/min; Est GFR (African American) 41.5; Est GFR (Non-African American) 35.8; Magnesium 2.1 mg/dl (1.8-2.4)
[2020-07-05 07:37] LABS: Phosphorus 3.4 mg/dl (2.5-4.9)
[2020-07-05] MEDS: allopurinoL 100 MG TAB PO SCH (08:27)
[2020-07-05] MEDS: CYANOCOBALAMIN (VITAMIN B-12) 100 MCG TABLET PO SCH (08:28)
[2020-07-05] MEDS: CEROVITE ADV FORMULA TAB PO SCH (08:28)
[2020-07-05] MEDS: FAMOTIDINE 20 MG TAB PO SCH ×2 (08:28→19:37)
[2020-07-05] MEDS: FINASTERIDE 5 MG TAB PO SCH (08:32)
[2020-07-05] MEDS: predniSONE 20 MG TAB PO SCH (08:32)
[2020-07-05] MEDS: METOPROLOL TARTRATE 50 MG TAB PO SCH ×2 (08:32→19:37)
[2020-07-05] MEDS: hydrALAZINE 10 MG TAB PO SCH ×3 (08:32→19:35)
[2020-07-05] MEDS: ERTAPENEM SODIUM 1,000 MG in SODIUM CHLORIDE 0.9% 50 ML IV SCH (09:37)
--- NOTE | 2020-07-05 14:27 | Hospitalist Progress Note ---
Date of Service July 05, 2020 Assessment & Plan (1) Respiratory failure, acute and chronic: Secondary to COPD exacerbation, complicated bronchitis Has been on nebs and steroid and also oxygen as needed and doxycycline Clinically a lot better We will continue current management No respiratory symptoms at rest Hypertensive urgency secondary to discomfort Blood pressure has been improving Blood pressure remains on the upper side CAD status post CABG Chronic diastolic failure (EF 50-55%, TTE 2019), patient on the dry side Denies any acute cardiac symptoms No signs and or symptoms of fluid overflow PVD status post surgery H/O recurrent CVA, hx ICH as per records Chronic cognitive impairment, possible dementia as per , mentation at baseline as per (2) UTI (urinary tract infection): Has gram-negative bacilli UTI Further identification is pending We will continue current antibiotic History ESBL E. coli UTI-urine culture is growing ESBL Antibiotic is changed to ertapenem Peak/ultrasound-guided line will be inserted today and plan to discharge tomorrow on intravenous ertapenem for a 14 days course (3) CKD (chronic kidney disease), stage III: ARF on CRI secondary to illness, history solitary kidney We will monitor kidney function while in the hospital Stable (4) Pneumonia: Pneumonia has been ruled out DVT prophylaxis. Heparin subcu Patient's requesting updates providers Ms. Nereida Cardona, contact #[phone]. Admission and Anticipated Discharge Date Admission Date: July 03, 2020 Subjective 07/04/2020 The patient was seen and examined in medical telemetry unit Is a 70-year-old obese male with significant past medical history of CAD status post CABG, CHF with EF of 50 to 55%, hypertension, PVD, history of recurrent CVA, COPD and possible CAMILO was admitted with increasing shortness of breath and requiring more oxygen few days prior to admission He has been feeling a lot better since hospitalization Denies any significant symptoms of chest pain, palpitation, any abdominal pain, nausea or vomiting and denies any fever and/or chills 07/05/2020 The patient was seen and examined in medical telemetry unit He has been stable and denies any symptoms He will need a PICC line before discharging home tomorrow Review of Systems Review of Systems: All systems reviewed and are unremarkable except as noted below Respiratory: no cough and no dyspnea (Moderate dyspnea at rest) Neurologic: + generalized weakness Physical Exam Physical Exam: Lying in bed comfortably Constitutional: well developed, well nourished, + ill appearing, + obese and + in distress (Moderate shortness of breath at rest) Eyes: PERRL, conjunctivae normal, anicteric sclerae ENMT: external ear and nose normal, oropharynx normal Neck: trachea midline, no thyromegaly Respiratory: no respiratory distress (Moderate shortness of breath at rest) Auscultation: + diminished lung sounds and + wheezes (Minimal wheezing bilaterally) Cardiovascular: Rate/Rhythm: regular rate and regular rhythm Heart Sounds: no murmur Extremities: no edema Gastrointestinal (Abdomen): Inspection/Auscultation: normal bowel sounds; abdomen not distended Percussion/Palpation: abdomen soft; abdomen nontender Musculoskeletal: No acute arthritis in any joint Neurologic: Alert, awake and oriented x3. Generally weak but no focal sensory and motor deficit appreciated Psychiatric: A+Ox3, euthymic affect Lymphatic: no cervical or axillary lymphadenopathy Results & Data Results & Data ([facility]) Vital Signs (Past 12 Hours) Vital Signs Temp Pulse Pulse Resp BP Pulse Ox 07/05/20 11:18 36.9 C 81 19 164/90 H 90 07/05/20 07:59 36.7 C 88 18 155/84 H 92 07/05/20 07:08 96 H 07/05/20 04:00 36.4 C L 89 18 155/91 H 94 Laboratory Results Short CBC 07/05/20 Range/Units 06:47 WBC 9.71 (4.8-10.8) K/uL Hgb 16.5 (14.0-18.0) g/dL Hct 48.3 (42-52) % Plt Count 189 (130-400) K/uL BMP 07/05/20 06:47 Sodium 139 Potassium 4.0 Chloride 105 Carbon Dioxide 25 BUN 33 H Creatinine 1.84 H Glucose 100 H Calcium 9.2 Medications Administered Current Inpatient Medications Acetaminophen (Acetaminophen 325 Mg Tab) 650 mg PO Q4H PRN PRN Reason: Pain or Fever Stop: 08/02/20 03:37 Allopurinol (Allopurinol 100 Mg Tab) 100 mg PO QAM [facility] Stop: 08/02/20 08:59 Last Admin: 07/05/20 08:27 Dose: 100 mg Documented by: Amlodipine Besylate (Amlodipine Besylate 5 Mg Tab) 10 mg PO QPM [facility] Stop: 08/02/20 20:59 Last Admin: 07/04/20 20:03 Dose: 10 mg Documented by: Clopidogrel Bisulfate (Clopidogrel Bisulfate 75 Mg Tab) 75 mg PO QPM [facility] Stop: 08/02/20 20:59 Last Admin: 07/04/20 20:04 Dose: 75 mg Documented by: Cyanocobalamin (Cyanocobalamin (Vitamin B-12) 100 Mcg Tablet) 100 mcg PO QAM [facility]ALYA Stop: 08/02/20 08:59 Last Admin: 07/05/20 08:28 Dose: 100 mcg Documented by: Famotidine (Famotidine 20 Mg Tab) 20 mg PO BID [facility] Stop: 08/02/20 08:59 Last Admin: 07/05/20 08:28 Dose: 20 mg Documented by: Finasteride (Finasteride 5 Mg Tab) 5 mg PO DAILY [facility] Stop: 08/02/20 08:59 Last Admin: 07/05/20 08:32 Dose: 5 mg Documented by: Heparin Sodium (Porcine) (Heparin Sod 5,000 Unit/0.5 Ml Vial) 5,000 units SQ Q8 [facility] Stop: 08/02/20 05:59 Last Admin: 07/05/20 05:41 Dose: 5,000 units Documented by: Hydralazine HCl (Hydralazine 10 Mg Tab) 10 mg PO TID [facility] Stop: 08/02/20 04:04 Last Admin: 07/05/20 08:32 Dose: 10 mg Documented by: Hydralazine HCl (Hydralazine Hcl 20 Mg/Ml Vial) 5 mg IV Q6H PRN PRN Reason: hypertension Stop: 08/02/20 10:29 Ertapenem 1,000 mg/ Sodium (Chloride) 60 mls @ 100 mls/hr IV DAILY [facility] Stop: 07/19/20 09:14 Last Infusion: 07/05/20 10:19 Dose: Infused Documented by: Ipratropium [place] (Ipratropium [place] Neb Soln 0.02% 2.5 Ml Vial) 0.5 mg INH Q6R PRN PRN Reason: Shortness Of Breath Or Wheezing Stop: 08/02/20 06:59 Levalbuterol HCl (Levalbuterol 1.25mg/0.5ml Neb) 1.25 mg INH Q6R PRN PRN Reason: Shortness Of Breath Or Wheezing Stop: 08/02/20 06:59 Metoprolol Tartrate (Metoprolol Tartrate 50 Mg Tab) 50 mg PO BID [facility] Stop: 08/02/20 08:59 Last Admin: 07/05/20 08:32 Dose: 50 mg Documented by: Multivitamins/Minerals (Cerovite Adv Formula Tab) 1 tab PO DAILY [facility] Stop: 08/02/20 08:59 Last Admin: 07/05/20 08:28 Dose: 1 tab Documented by: Pravastatin Sodium (Pravastatin Sod 40 Mg Tab) 40 mg PO QPM [facility] Stop: 08/02/20 20:59 Last Admin: 07/04/20 20:04 Dose: 40 mg Documented by: Prednisone (Prednisone 20 Mg Tab) 40 mg PO DAILY [facility] Stop: 07/07/20 08:59 Last Admin: 07/05/20 08:32 Dose: 40 mg Documented by: Trazodone HCl (Trazodone Hcl 50 Mg Tab) 50 mg PO HS [facility] Stop: 08/02/20 20:59 Last Admin: 07/04/20 20:01 Dose: 50 mg Documented by: (1) UTI (urinary tract infection) Hematuria presence: without hematuria Urinary tract infection type: site unspecified Qualified Code(s): N39.0 - Urinary tract infection, site not specified (2) Pneumonia Laterality: right Lung location: lower lobe of lung Pneumonia type: due to unspecified organism Qualified Code(s): J18.9 - Pneumonia, unspecified organism
[2020-07-05] MEDS: amLODIPine BESYLATE 5 MG TAB PO SCH (19:36)
[2020-07-05] MEDS: traZODone HCL 50 MG TAB PO SCH (19:36)
[2020-07-05] MEDS: CLOPIDOGREL BISULFATE 75 MG TAB PO SCH (19:37)
[2020-07-05] MEDS: PRAVASTATIN SOD 40 MG TAB PO SCH (19:37)
[2020-07-06] MEDS: HEPARIN SOD 5,000 UNIT/0.5 ML VIAL SQ SCH ×2 (06:13→14:32)
[2020-07-06 07:16] LABS: Basophils # (auto) 0.02 K/uL (0-0.2); Basophils % (auto) 0.2 %; Eosinophils # (auto) 0.02 K/uL (0-0.5); Eosinophils % (auto) 0.2 %; Hematocrit (blood only) 51.7 % (42-52); Hemoglobin 17.5 g/dL (14.0-18.0); Immature Granulocytes # (auto) 0.05 K/uL (0.00-0.02); Immature Granulocytes % (auto) 0.6 %; Lymphocytes # (auto) 2.43 K/uL (1.2-3.4); Lymphocytes % (auto) 28.9 %; Mean Corpuscular Hemoglobin 32.2 pg (25-34); Mean Corpuscular Hgb Conc 33.8 g/dL (32-36); Mean Corpuscular Volume 95.2 fL (80-100); Mean Platelet Volume 9.5 fL (7.4-10.4); Monocytes # (auto) 1.47 K/uL (0.11-0.59); Monocytes % (auto) 17.5 %; Neutrophils # (auto) 4.42 K/uL (1.4-6.5); Neutrophils % (auto) 52.6 %; Platelet Count 204 K/uL (130-400); RDW Coefficient of Variation 13.9 % (11.5-14.5); RDW Standard Deviation 48.5 fL (36.4-46.3); Red Blood Count 5.43 M/uL (4.7-6.1); White Blood Count 8.41 K/uL (4.8-10.8)
[2020-07-06 07:45] LABS: Albumin Level 3.1 gm/dl (3.4-5.0); Est GFR (African American) 42.3; Est GFR (Non-African American) 36.5
[2020-07-06 07:48] LABS: Albumin Globulin Ratio 0.7 (0.9-2); Bilirubin,Total 0.4 mg/dl (0.2-1); Globulin 4.4 gm/dl (2.5-4.0); Total Protein 7.5 gm/dl (6.4-8.2)
[2020-07-06] MEDS: FAMOTIDINE 20 MG TAB PO SCH (07:56)
[2020-07-06] MEDS: METOPROLOL TARTRATE 50 MG TAB PO SCH (07:56)
[2020-07-06] MEDS: CEROVITE ADV FORMULA TAB PO SCH (07:56)
[2020-07-06] MEDS: predniSONE 20 MG TAB PO SCH (07:56)
[2020-07-06] MEDS: FINASTERIDE 5 MG TAB PO SCH (07:56)
[2020-07-06] MEDS: allopurinoL 100 MG TAB PO SCH (07:56)
[2020-07-06] MEDS: CYANOCOBALAMIN (VITAMIN B-12) 100 MCG TABLET PO SCH (07:57)
[2020-07-06] MEDS: hydrALAZINE 10 MG TAB PO SCH (07:57)
[2020-07-06] MEDS: ERTAPENEM SODIUM 1,000 MG in SODIUM CHLORIDE 0.9% 50 ML IV SCH (10:28)
[2020-07-06] MEDS ORDERED: hydrALAZINE HCL 25 MG TAB PO STA (10:44)
--- NOTE | 2020-07-06 10:45 | Hospitalist Progress Note ---
Date of Service July 06, 2020 Assessment & Plan (1) Respiratory failure, acute and chronic: Secondary to COPD exacerbation, complicated bronchitis Has been on nebs and steroid and also oxygen as needed and doxycycline Clinically a lot better We will continue current management No respiratory symptoms at rest He has been on home oxygen Will get 2 steps O2 saturation before discharge this afternoon Hypertensive urgency secondary to discomfort Blood pressure has been improving Blood pressure remains on the upper side We will increase the hydralazine to 25 mg 3 times daily CAD status post CABG Chronic diastolic failure (EF 50-55%, TTE 2019), patient on the dry side Denies any acute cardiac symptoms No signs and or symptoms of fluid overflow PVD status post surgery H/O recurrent CVA, hx ICH as per records Chronic cognitive impairment, possible dementia as per , mentation at baseline as per (2) UTI (urinary tract infection): Has gram-negative bacilli UTI Further identification is pending We will continue current antibiotic History ESBL E. coli UTI-urine culture is growing ESBL Antibiotic is changed to ertapenem Peak/ultrasound-guided line will be inserted today and plan to discharge tomorrow on intravenous ertapenem for a 14 days course Has been having some diarrhea we will check a stool for C. difficile (3) CKD (chronic kidney disease), stage III: ARF on CRI secondary to illness, history solitary kidney We will monitor kidney function while in the hospital Stable-creatinine is 1.81 as of 07/06/2020 (4) Pneumonia: Pneumonia has been ruled out DVT prophylaxis. Heparin subcu Patient's requesting updates providers Ms. Nereida Cardona, contact #[phone]. Likely be discharged this afternoon Admission and Anticipated Discharge Date Admission Date: July 03, 2020 Subjective 07/04/2020 The patient was seen and examined in medical telemetry unit Is a 70-year-old obese male with significant past medical history of CAD status post CABG, CHF with EF of 50 to 55%, hypertension, PVD, history of recurrent CVA, COPD and possible CAMILO was admitted with increasing shortness of breath and requiring more oxygen few days prior to admission He has been feeling a lot better since hospitalization Denies any significant symptoms of chest pain, palpitation, any abdominal pain, nausea or vomiting and denies any fever and/or chills 07/05/2020 The patient was seen and examined in medical telemetry unit He has been stable and denies any symptoms He will need a PICC line before discharging home tomorrow 07/06/2020 The patient was seen and examined in medical telemetry unit He has been feeling a lot better and complains to have some diarrhea without any abdominal pain and/or nausea ,vomiting Saturating normally on room air Wants to go home this afternoon Review of Systems Review of Systems: All systems reviewed and are unremarkable except as noted below Neurologic: + generalized weakness Physical Exam Physical Exam: Sitting on a chair without any acute distress Constitutional: well developed, well nourished, + ill appearing and + obese; not in distress (Moderate shortness of breath at rest) Eyes: PERRL, conjunctivae normal, anicteric sclerae ENMT: external ear and nose normal, oropharynx normal Neck: trachea midline, no thyromegaly Respiratory: no respiratory distress (Moderate shortness of breath at rest) Auscultation: + diminished lung sounds and + wheezes (Minimal wheezing bilaterally) Cardiovascular: Rate/Rhythm: regular rate and regular rhythm Heart Sounds: no murmur Extremities: no edema Gastrointestinal (Abdomen): Inspection/Auscultation: normal bowel sounds; abdomen not distended Percussion/Palpation: abdomen soft; abdomen nontender Musculoskeletal: No acute arthritis in any joint Neurologic: Alert, awake and oriented x3. Generally weak but no focal sensory and motor deficit appreciated Psychiatric: A+Ox3, euthymic affect Lymphatic: no cervical or axillary lymphadenopathy Results & Data Results & Data ([facility]) Vital Signs (Past 12 Hours) Vital Signs Temp Pulse Pulse Resp BP Pulse Ox 07/06/20 07:44 36.6 C 95 H 18 146/102 H 90 07/06/20 07:21 83 07/06/20 04:00 36.8 C 83 18 154/89 H 94 07/06/20 03:13 67 07/05/20 23:00 36.7 C 82 18 152/76 H 91 Laboratory Results Short CBC 07/06/20 Range/Units 06:49 WBC 8.41 (4.8-10.8) K/uL Hgb 17.5 (14.0-18.0) g/dL Hct 51.7 (42-52) % Plt Count 204 (130-400) K/uL BMP 07/06/20 06:49 Sodium 137 Potassium 4.0 Chloride 103 Carbon Dioxide 27 BUN 34 H Creatinine 1.81 H Calcium 10.0 Liver Function 07/06/20 Range/Units 06:49 Total Bilirubin 0.4 (0.2-1) mg/dl AST 46 H (15-37) U/L ALT 84 H (12-78) U/L Alkaline Phosphatase 83 (45-117) U/L Albumin 3.1 L (3.4-5.0) gm/dl Medications Administered Current Inpatient Medications Acetaminophen (Acetaminophen 325 Mg Tab) 650 mg PO Q4H PRN PRN Reason: Pain or Fever Stop: 08/02/20 03:37 Allopurinol (Allopurinol 100 Mg Tab) 100 mg PO QAM NATALYA Stop: 08/02/20 08:59 Last Admin: 07/06/20 07:56 Dose: 100 mg Documented by: Amlodipine Besylate (Amlodipine Besylate 5 Mg Tab) 10 mg PO QPM NATALYA Stop: 08/02/20 20:59 Last Admin: 07/05/20 19:36 Dose: 10 mg Documented by: Clopidogrel Bisulfate (Clopidogrel Bisulfate 75 Mg Tab) 75 mg PO QPM NATALYA Stop: 08/02/20 20:59 Last Admin: 07/05/20 19:37 Dose: 75 mg Documented by: Cyanocobalamin (Cyanocobalamin (Vitamin B-12) 100 Mcg Tablet) 100 mcg PO QAM [facility] Stop: 08/02/20 08:59 Last Admin: 07/06/20 07:57 Dose: 100 mcg Documented by: Famotidine (Famotidine 20 Mg Tab) 20 mg PO BID NATALYA Stop: 08/02/20 08:59 Last Admin: 07/06/20 07:56 Dose: 20 mg Documented by: Finasteride (Finasteride 5 Mg Tab) 5 mg PO DAILY NATALYA Stop: 08/02/20 08:59 Last Admin: 07/06/20 07:56 Dose: 5 mg Documented by: Heparin Sodium (Porcine) (Heparin Sod 5,000 Unit/0.5 Ml Vial) 5,000 units SQ Q8 NATALYA Stop: 08/02/20 05:59 Last Admin: 07/06/20 06:13 Dose: 5,000 units Documented by: Hydralazine HCl (Hydralazine 10 Mg Tab) 10 mg PO TID NATALYA Stop: 08/02/20 04:04 Last Admin: 07/06/20 07:57 Dose: 10 mg Documented by: Hydralazine HCl (Hydralazine Hcl 20 Mg/Ml Vial) 5 mg IV Q6H PRN PRN Reason: hypertension Stop: 08/02/20 10:29 Ertapenem 1,000 mg/ Sodium (Chloride) 60 mls @ 100 mls/hr IV DAILY NATALYA Stop: 07/19/20 09:14 Last Admin: 07/06/20 10:28 Dose: 100 mls/hr Documented by: Ipratropium [place] (Ipratropium [place] Neb Soln 0.02% 2.5 Ml Vial) 0.5 mg INH Q6R PRN PRN Reason: Shortness Of Breath Or Wheezing Stop: 08/02/20 06:59 Last Admin: 07/05/20 20:01 Dose: 0.5 mg Documented by: Levalbuterol HCl (Levalbuterol 1.25mg/0.5ml Neb) 1.25 mg INH Q6R PRN PRN Reason: Shortness Of Breath Or Wheezing Stop: 08/02/20 06:59 Last Admin: 07/05/20 20:01 Dose: 1.25 mg Documented by: Metoprolol Tartrate (Metoprolol Tartrate 50 Mg Tab) 50 mg PO BID NATALYA Stop: 08/02/20 08:59 Last Admin: 07/06/20 07:56 Dose: 50 mg Documented by: Multivitamins/Minerals (Cerovite Adv Formula Tab) 1 tab PO DAILY NATALYA Stop: 08/02/20 08:59 Last Admin: 07/06/20 07:56 Dose: 1 tab Documented by: Pravastatin Sodium (Pravastatin Sod 40 Mg Tab) 40 mg PO QPM NATALYA Stop: 08/02/20 20:59 Last Admin: 07/05/20 19:37 Dose: 40 mg Documented by: Prednisone (Prednisone 20 Mg Tab) 40 mg PO DAILY NATALYA Stop: 07/07/20 08:59 Last Admin: 07/06/20 07:56 Dose: 40 mg Documented by: Trazodone HCl (Trazodone Hcl 50 Mg Tab) 50 mg PO HS NATALYA Stop: 08/02/20 20:59 Last Admin: 07/05/20 19:36 Dose: 50 mg Documented by: (1) UTI (urinary tract infection) Hematuria presence: without hematuria Urinary tract infection type: site unspecified Qualified Code(s): N39.0 - Urinary tract infection, site not specified (2) Pneumonia Laterality: right Lung location: lower lobe of lung Pneumonia type: due to unspecified organism Qualified Code(s): J18.9 - Pneumonia, unspecified organism
[2020-07-06] MEDS ORDERED: hydrALAZINE HCL 25 MG TAB PO SCH (14:00)
--- NOTE | 2020-07-07 08:20 | Discharge Summary ---
Date of Service July 07, 2020 Admission HPI Per Admitting Provider History obtained from patient, family, and records. History somewhat limited from patient secondary to baseline cognitive impairment (possible dementia as per ). Medical history significant for CAD status post CABG, CHF as per records (EF 50 to 55%, TTE 2019), HTN, PVD status post surgery, history recurrent CVA, hx ICH, COPD, possible CAMILO (CPAP intolerance as per records), past tobacco abuse, gout, CRI baseline creatinine 1.5-1.6, BPH status post surgery, history of solitary kidney, hx ESBL E. coli UTI. Last confinement October 2019 for partial small bowel obstruction resolved with conservative management. Today patient noted to have runny nose and cough symptoms, fever at home as per . Problems with the home furnace as well per . Patient breathing noted to be labored by . Needing more oxygen. Patient with achy back pain complaints as per . No known recent COVID-19 contacts. Patient denies chest pain. Mentation usual as per . Patient brought to the ER for evaluation. O2 sats 80s on room air. Patient received Decadron and Zosyn at the ER. Medical History as above Surgical History : CABG, carotid artery surgery, tracheostomy, nephrectomy, TURP Family History : Diabetes Personal/Social history : Past tobacco abuse, no EtOH intake, prior [employer], lives with wifeMedical history significant for Admission Exam Per Admitting Provider Physical Exam: GENERAL: Obese, coherent but not oriented to date, month, and and year; minimal respiratory distress, audible wheezing, mild hearing impairment SKIN: Normal color, warm HEENT: [place] palpebral conjunctivae, no ptosis, dry buccal mucosa, nasal cannula in place NECK : Supple, short neck, no tenderness CHEST : Decreased breath sounds, expiratory wheezes, no tenderness HEART : Tachycardic, no obvious murmurs ABDOMEN: distention, nontender EXTREMITIES : Minimal LE swelling, no LE tenderness, no other conspicuous deformities noted NEUROLOGIC : Coherent, oriented to place, no facial asymmetry, mild hearing impairment, no other gross focality Principal Diagnosis Acute on chronic respiratory failure, ESBL UTI, hypertension, CAD status post CABG Discharge Exam Constitutional well developed, well nourished, + ill appearing and + obese; not in distress (Moderate shortness of breath at rest) Eyes PERRL, conjunctivae normal, anicteric sclerae ENMT external ear and nose normal, oropharynx normal Neck trachea midline, no thyromegaly Respiratory no respiratory distress (Moderate shortness of breath at rest) Auscultation: + diminished lung sounds and + wheezes (Minimal wheezing bilaterally) Cardiovascular Rate/Rhythm: regular rate and regular rhythm Heart Sounds: no murmur Extremities: no edema Gastrointestinal (Abdomen) Inspection/Auscultation: normal bowel sounds; abdomen not distended Percussion/Palpation: abdomen soft; abdomen nontender Psychiatric A+Ox3, euthymic affect Lymphatic no cervical or axillary lymphadenopathy Discharge Data Allergies Allergy/AdvReac Type Severity Reaction Status Date / Time aspirin AdvReac Intermediate RELAXES Verified 07/02/20 23:23 RECTUM atorvastatin AdvReac Intermediate RELAXED Verified 07/02/20 23:23 RECTAL SPHINCTER Consultations 07/02/20 22:51 ED Decision to Admit Stat 07/03/20 03:38 Consult Case Management - Discharge Planning Routine Ordered Studies 07/03/20 00:08 CT abd pelvis wo con Urgent CT chest diagnostic wo con Urgent Hospital Course (1) Respiratory failure, acute and chronic: Secondary to COPD exacerbation, complicated bronchitis Has been on nebs and steroid and also oxygen as needed and doxycycline Clinically a lot better We will continue current management No respiratory symptoms at rest He has been on home oxygen Will get 2 steps O2 saturation before discharge this afternoon Hypertensive urgency secondary to discomfort Blood pressure has been improving Blood pressure remains on the upper side We will increase the hydralazine to 25 mg 3 times daily CAD status post CABG Chronic diastolic failure (EF 50-55%, TTE 2019), patient on the dry side Denies any acute cardiac symptoms No signs and or symptoms of fluid overflow PVD status post surgery H/O recurrent CVA, hx ICH as per records Chronic cognitive impairment, possible dementia as per , mentation at baseline as per (2) UTI (urinary tract infection): Has gram-negative bacilli UTI Further identification is pending We will continue current antibiotic History ESBL E. coli UTI-urine culture is growing ESBL Antibiotic is changed to ertapenem Peak/ultrasound-guided line will be inserted today and plan to discharge tomorrow on intravenous ertapenem for a 14 days course Has been having some diarrhea we will check a stool for C. difficile (3) CKD (chronic kidney disease), stage III: ARF on CRI secondary to illness, history solitary kidney We will monitor kidney function while in the hospital Stable-creatinine is 1.81 as of 07/06/2020 (4) Pneumonia: Pneumonia has been ruled out DVT prophylaxis. Heparin subcu Patient's requesting updates providers Ms. Nereida Cardona, contact #[phone]. Likely be discharged this afternoon Total Time Total Time Spent Total Time Spent (In Minutes): 35 minutes Total Time Includes: Examination of the Patient, Discharge Planning, Medication Reconciliation and Communication With Other Providers Discharge Plan Discharge Items Patient Disposition: Home - Home Health Services Reason For Visit: COPD EXACERBATION Discharge Diagnosis: Acute on chronic respiratory failure, ESBL UTI, hypertension, CAD status post CABG Condition on Discharge: Fair Activity: Resume your previous activity Non-emergency contact: Primary Care Provider Call non-emergency contact if: you have any medication questions and your symptoms worsen Follow-up/Referrals: Luis Armando Syed DO [Primary Care Provider] - (Date & Time 07/10/2020 4:00 PM Provider Kai Jacobsen [place] [facility] [place] Diet: Heart Healthy Ambulatory Orders: Complete Blood Count with Diff (Timed) Timeframe: 1 Week Location: Determined by Patient Ordered By: Nirmal Coelho Comprehensive Metabolic Panel (Routine) Timeframe: 1 Week Location: Determined by Patient Ordered By: Nirmal Burt Attending Provider Instructions: Please take precaution to avoid falls Continue ertapenem intravenously as advised Hold your statin until the antibiotic course is done Pending Studies at Discharge: No Stand-Alone Forms: My [employer], Smoking Cessation Medications and DC Order Prescriptions: New hydralazine 25 mg Tablet 25 mg PO TID 30 Days Qty: 90 RF: 0 prednisone 10 mg tablet 10 mg PO UD Qty: 18 RF: 0 Continued (DME) Oxygen Home Liters Per Minute See Dose Instructions .ROUTE .MEDSUPPLY Qty: 1 RF: 0 omega [id number] oil [Ultra Dime Box-3] 500-1,000 mg capsule 2 cap PO DAILY RF: 0 finasteride [Proscar] 5 mg tablet 5 mg PO DAILY Qty: 90 RF: 3 trazodone 50 mg tablet 50 mg PO HS RF: 0 pravastatin 40 mg tablet 40 mg PO QPM RF: 0 clopidogrel 75 mg tablet 75 mg PO QPM RF: 0 allopurinol 100 mg tablet 100 mg PO QAM RF: 0 famotidine 20 mg tablet 20 mg PO BID RF: 0 metoprolol tartrate 50 mg tablet 50 mg PO BID RF: 0 amlodipine [Norvasc] 10 mg tablet 10 mg PO QPM RF: 0 cyanocobalamin (vitamin B-12) 100 mcg Tablet 100 mcg PO QAM RF: 0 fluticasone propion-salmeterol 113-14 mcg/actuation aerosol powdr breath activated 1 inh INHALATION BID RF: 0 multivitamin with minerals [Hair,Skin and Nails] Tablet 1 tab PO DAILY RF: 0 turmeric 400 mg Capsule 400 mg PO QAM RF: 0 Discontinued hydralazine 10 mg tablet 10 mg PO TID RF: 0 Discharge Orders: Discharge Order (Routine); Ordered 07/06/20 Ordered By: Nirmal Brink/Other Patient Handouts: Exercise to Manage Your Blood Sugar, 5 Steps for Eating Healthier, A1C Admission Data Admit Date/Time: 07/03/20 00:50 Attending Provider: Nirmal Coelho Admit Provider: Kai Frias Primary Care Provider: Luis Armando Syed V. Other Providers: Kai Frias ; Kenny Haywood ; [place] ; [facility] Other Interventions: Discharge Summary Assessment (RN) Last Done: 07/06/20 13:38
== END 2020-07-06 17:37 | disposition home health service (06) | DRG 189 ==
LOC: ED 22:09 → SUATTDRO 07-03 00:50 → 2N 07-03 00:50

== ENCOUNTER 2020-11-26 11:58 | Observation (INO) ==
[2020-11-26] MEDS ORDERED: ONDANSETRON INJ 2 MG/ML 2 ML VIAL IV STA (14:18)
[2020-11-26] MEDS ORDERED: MoRPHine SULFATE 4 MG/ML 1 ML CARP\\VIAL IV STA (14:18)
--- NOTE | 2020-11-26 14:33 | Emergency Department Note ---
Impression & Plan Pneumonia, Biliary colic ED Provider Note NAME: ANALISA MEDRANO AGE: 70 SEX: M : 1950 ARRIVES VIA: Walk-In INFORMANT: Patient, ED PROVIDER(S): Vargas Dennison MD Chief Complaint: Abdominal pain HPI: Patient did present with concern of right upper quadrant pain which is worse with palpation and eating. The patient was recently seen in the outpatient setting by Dr. Rob Long and was referred here for further evaluation and treatment as Dr. Quinteros daily does not think the patient is an optimal surgical candidate for possible cholecystectomy. Patient was recently seen on the eighth for abdominal pain and was noted to have gallstones. Patient denies any right lower quadrant pain. The [facility] Patient denies any fevers or chills or chest pains. The pat ieshiv has had a mild cough but is a former smoker last smoked in 2007. Patient has tried to take [id number] medications including narcotics but this is not improved his pain. Patient has had nausea but no vomiting. Patient had a recent bowel movement no issues with urination. ROS: See HPI for pertinent positives and negatives. A total of 10 systems were reviewed and otherwise negative. Past medical history: See below Surgical history: See below Social history: See below Physical Exam: GENERAL: Nasal cannula and mask in place. NAD, non-toxic. EYE EXAM: Normal conjunctiva. PERRL, no anisocoria and EOM's grossly intact w/o pain. NECK: Supple, no nuchal rigidity, no adenopathy, non-tender. No signs of meningismus. LUNGS: Rhonchi on the right. Normal chest wall mechanics. HEART: NSR, no MRG. ABDOMEN: Abdomen soft, right upper quadrant pain, no right lower quadrant pain, not peritonitic, normo-active bowel sounds, no masses, no rebound or guarding. BACK: No CVA TTP. SKIN: No rashes and no bruising. UPPER EXTREMITIES: Upper extremities are grossly normal. LOWER EXTREMITIES: Grossly normal, no edema. NEURO EXAM: A&O x3, cranial nerves II-XII grossly intact, normal speech, moves all 4 extremities on command w/o issue. Differential diagnoses: Appendicitis, testicular torsion, infections, diverticulitis, UTI, obstruction, mesenteric ischemia, aortic pathology, inflammatory bowel disease, renal colic, PUD, pancreatitis, biliary pathology, hernia, volvulus, constipation, as well as other pathologies. Course: Patient was seen and evaluated the bedside. Full history physical exam was performed. EKG interpreted by me Normal sinus rhythm, rate 80, normal intervals, normal axis, no ST changes or T WI. Imaging Studies: See below Cardiac monitoring: An order was placed for continuous cardiac monitoring. The monitor shows a rate of 84 with sinus rhythm. MDM: Patient did present with concern for right upper quadrant pain and biliary colic. The patient was having some persistent discomfort. The patient does have a known history of COPD and chronic oxygen use and was borderline hypoxic in triage. The patient did have blood work completed. The patient did have a repeat ultrasound which did show some gallbladder distention and gallstones but no convincing evidence of acute cholecystitis. Given the patient's chronic oxygen requirement with possible rhonchi believe the patient may benefit from further monitoring and treatment given the possible developing pneumonia. Only atelectatic changes seen on chest x-ray. I did speak with the on-call hospit eric Love PA-C and the patient was admitted by Dr. Coelho. Past Med/Surg History Medical History Abnormal EKG BPH (benign prostatic hyperplasia) BPH with obstruction/lower urinary tract symptoms Cerebrovascular disease s/p multiple ischemic strokes Cholelithiasis Chronic kidney disease, stage 3a CKD (chronic kidney disease), stage III COPD (chronic obstructive pulmonary disease) Coronary artery disease s/p CABG Dyslipidemia Gout Hearing deficit History of bronchitis History of intracranial hemorrhage parenchymal hemorrhage perioperatively during / after carotid surgery Hypertension On anticoagulant therapy plavix daily On home oxygen therapy 2L N/C prn/HS Peripheral vascular disease Pulmonary nodule CXR [facility] 07/03/18: 1.3 cm right midlung nodule, slightly enlarged compared to 04/18/15. F/U with CT recommended. Sepsis hx of Solitary kidney atrophic left kidney, nephrectomy performed for hypertension Stroke x5---per has aphasia, right arm weakness/loss of peripheral vision Urinary retention UTI (urinary tract infection) due to Enterococcus Vitamin D deficiency Surgical History History of bronchoscopy x2 History of cardiac cath x2----no stents History of colonoscopy History of tooth extraction all upper teeth Status post abdominal aortic aneurysm (AAA) repair 1998 @ [facility] [place] Status post carotid endarterectomy 09/30/2013--left @ [facility] [place] Status post coronary artery bypass graft 1998 @ [facility] [place] Status post nephrectomy left atrophic, nonfunctional associated with hypertension Status post transurethral resection of prostate Family History Sister Family history of diabetes mellitus Diabetes Brother Family history of diabetes mellitus Diabetes Heart disease Hypertension Other No family history of adverse response to anesthesia Social History Smoking Status: Former smoker Tobacco Type: Cigarettes Cigarettes Per Day: 20-40; Smoking End Date: 10/2007; Second Hand Exposure: No; Hx Alcohol Use: No Hx Substance Use: No Preferred Language: Telugu Communication Ability: Effective Visual Impairment: No Limitations Hearing Ability: Normal Break Out Man Required: No Beliefs That Will Affect Care: None marital status: Current Living Situation: Spouse Current Living Situation Comment: with and sister current occupational status: retired Feels Safe at Home: Yes Assistive Devices: None Allergies Allergies Allergy/AdvReac Type Severity Reaction Status Date / Time aspirin AdvReac Intermediate RELAXES Verified 11/26/20 11:11 RECTUM atorvastatin AdvReac Intermediate RELAXED Verified 11/26/20 11:11 RECTAL SPHINCTER Home Meds Home Medications Medication Instructions Recorded Confirmed allopurinol 100 mg PO QAM 07/13/18 11/26/20 clopidogrel 75 mg PO QPM 07/13/18 11/26/20 famotidine 20 mg PO BID 07/13/18 11/26/20 metoprolol tartrate 50 mg PO BID 07/13/18 11/26/20 pravastatin 40 mg PO QPM 07/13/18 11/26/20 trazodone 50 mg PO HS 07/13/18 11/26/20 amlodipine [Norvasc] 10 mg PO QPM 10/13/18 11/26/20 multivitamin with minerals 1 tab PO DAILY 11/15/19 11/26/20 [Hair,Skin and Nails] fluticasone propion-salmeterol 1 inh INHALATION UD 11/22/20 11/26/20 hydralazine 10 mg PO TID 11/22/20 11/26/20 Previous Rx's Medication Instructions Recorded finasteride 5 mg tablet 5 mg PO DAILY #90 tab 03/20/20 ipratropium 0.5 mg-albuterol 3 mg 3 ml INHALATION Q4H PRN #180 ml 08/14/20 (2.5 mg base)/3 mL nebulization soln losartan 25 mg tablet 25 mg PO DAILY #90 tab 08/20/20 tiotropium 2.5 mcg-olodaterol 2.5 2 puff INHALATION DAILY #4 g 10/09/20 mcg/actuation mist for inhalation docusate sodium [Colace] 100 mg PO BID #60 cap 11/22/20 oxycodone 5 mg PO Q6H PRN #14 tab 11/22/20 sennosides [Senokot] 8.6 mg PO HS #30 tab 11/22/20 Results & Data (ED) Vital Signs Vital Signs - 24 hr 11/26/20 12:34 11/26/20 15:10 11/26/20 15:42 Temperature 36.9 C Temperature Source Oral Pulse Rate 71 74 Pulse Rate from SpO2 Sensor 73 Pulse Rhythm Regular Pulse Strength Normal Respiratory Rate 20 9 L Respiratory Effort / Characteristics Non-Labored Spontaneous Respiratory Depth Normal Respiratory Pattern Regular Blood Pressure 111/66 163/81 H Blood Pressure Mean 81 108 Pulse Oximetry 90 99 88 L Oxygen Delivery Method Nasal Cannula Oxygen Flow Rate 3 4 Sepsis Recent Fever Within 48 Hours No Sepsis New/Unexplained Change in Mental Status N/A Sepsis Action Taken by Nursing No Action Required 11/26/20 16:02 11/26/20 16:10 11/26/20 16:44 Temperature Temperature Source Pulse Rate 84 80 83 Pulse Rate from SpO2 Sensor 84 80 83 Pulse Rhythm Pulse Strength Respiratory Rate 12 18 16 Respiratory Effort / Characteristics Respiratory Depth Respiratory Pattern Blood Pressure Blood Pressure Mean Pulse Oximetry 88 L 92 90 Oxygen Delivery Method Oxygen Flow Rate 3 5 5 Sepsis Recent Fever Within 48 Hours Sepsis New/Unexplained Change in Mental Status Sepsis Action Taken by Nursing 11/26/20 16:50 Temperature Temperature Source Pulse Rate 84 Pulse Rate from SpO2 Sensor 83 Pulse Rhythm Pulse Strength Respiratory Rate 16 Respiratory Effort / Characteristics Respiratory Depth Respiratory Pattern Blood Pressure Blood Pressure Mean Pulse Oximetry 90 Oxygen Delivery Method Oxygen Flow Rate 5 Sepsis Recent Fever Within 48 Hours Sepsis New/Unexplained Change in Mental Status Sepsis Action Taken by Shelter Medications Current Medication List: was personally reviewed by me Laboratory Data Attestation: I reviewed the patient's lab results. Result diagrams: 11/26/20 14:28 11/26/20 16:55 Lab Results 11/26/20 11/26/20 11/26/20 Range/Units 14:28 14:28 16:10 WBC 7.14 (4.8-10.8) K/uL RBC 4.98 (4.7-6.1) M/uL Hgb 15.8 (14.0-18.0) g/dL Hct 49.5 (42-52) % MCV 99.4 (80-100) fL MCH 31.7 (25-34) pg MCHC 31.9 L (32-36) g/dL RDW Std Deviation 49.4 H (36.4-46.3) fL RDW Coeff of Ketan 13.7 (11.5-14.5) % Plt Count 197 (130-400) K/uL MPV 9.3 (7.4-10.4) fL Immature Gran % (Auto) 0.3 % Neut % (Auto) 62.0 % Lymph % (Auto) 22.4 % Hardin % (Auto) 13.0 % Eos % (Auto) 1.7 % Baso % (Auto) 0.6 % Neut # (Auto) 4.43 (1.4-6.5) K/uL Lymph # (Auto) 1.60 (1.2-3.4) K/uL Hardin # (Auto) 0.93 H (0.11-0.59) K/uL Eos # (Auto) 0.12 (0-0.5) K/uL Baso # (Auto) 0.04 (0-0.2) K/uL Immature Gran # (Auto) 0.02 (0.00-0.02) K/uL Sodium 137 (136-145) mmol/L Chloride 104 (98-107) mmol/L Carbon Dioxide 29 (21-32) mmol/L Anion Gap 4.0 (3-11) BUN 23 H (7-18) mg/dl Creatinine 1.48 H (0.6-1.4) mg/dl Est Cr Clr Drug Dosing 52.0 ml/min Est GFR ( Amer) 54.0 ml/min Est GFR (Non-Af Amer) 46.6 ml/min BUN/Creatinine Ratio 15.2 (10-20) Glucose 96 (70-99) mg/dl Calcium 9.2 (8.5-10.1) mg/dl Total Bilirubin 0.3 (0.2-1) mg/dl ALT 38 (12-78) U/L Alkaline Phosphatase 83 (45-117) U/L Troponin I < 0.015 (0-0.045) ng/ml Total Protein 6.9 (6.4-8.2) gm/dl Albumin 3.1 L (3.4-5.0) gm/dl Globulin 3.8 (2.5-4.0) gm/dl Albumin/Globulin Ratio 0.8 L (0.9-2) Lipase 105 (73-393) U/L COVID-19 Eval Order Covid19 at [facility] Administered Medications Discontinued Medications Morphine Sulfate (Morphine Sulfate 4 Mg/Ml 1 Ml Carp\Vial) 4 mg IV NOW STA Stop: 11/26/20 14:19 Last Admin: 11/26/20 15:46 Dose: 4 mg Documented by: [id number] Ondansetron HCl (Ondansetron Inj 2 Mg/Ml 2 Ml Vial) 4 mg IV NOW STA Stop: 11/26/20 14:19 Last Admin: 11/26/20 15:46 Dose: 4 mg Documented by: [id number] Imaging Data Radiologist's Impression: Chest X-Ray 11/26/20 14:13 XR chest 1V portable HISTORY: 70 years-old Male cough, rhonchi R chest acute cough COMPARISON: CT abdomen pelvis and chest radiograph 11/22/2020 TECHNIQUE: Portable AP view of the chest FINDINGS: Cardiac silhouette is enlarged. Prior median sternotomy. Chronic obscuration of the left cardiophrenic angle with subsegmental bibasilar opacities. No pneumothorax, large pleural effusion or overt pulmonary edema. IMPRESSION: 1. Megaly without pulmonary edema. 2. Persistent bibasilar opacities suggestive of atelectasis/scarring. 3. Chronic obscuration of the left cardiophrenic angle compatible with a prominent epicardial fat pad. ACT 112: Negative or not required by law. The above report was generated using voice recognition software. It may contain grammatical, syntax or spelling errors. Electronically signed by: Jorge L Birmingham M.D. 11/26/2020 3:34 PM Abdomen Ultrasound 11/26/20 14:22 ABDOMINAL ULTRASOUND, RIGHT UPPER QUADRANT HISTORY: RUQ pain, cholelithiasis. COMPARISON: CT of the abdomen and pelvis and right upper quadrant ultrasound November 22, 2020. FINDINGS: Hepatic echogenicity is increased. No hepatic lesions are identified although sensitivity is diminished on this examination. Common bile duct is obscured on this exam. There is no intrahepatic biliary ductal dilatation. There are small gallstones within the gallbladder. There is no gallbladder wall thickening. Gallbladder is slightly distended. Pancreas body is normal. Head and tail are obscured. There is no right hydronephrosis. No sonographic Alicea sign was elicited. IMPRESSION: 1. Cholelithiasis. Mild gallbladder distention. No convincing evidence for acute cholecystitis. 2. Hepatic steatosis. ACT 112: Negative or not required by law. Electronically signed by: Mario Baker M.D. 11/26/2020 4:48 PM Discharge Plan Visit Data Chief Complaint: Abdominal Pain Stated Complaint: ABD PAIN ED Provider: Vargas Dennison Discharge Problem: Pneumonia, Biliary colic Forms Stand Alone Forms: [facility] enrich-in Prescriptions Prescriptions: No Action finasteride [Proscar] 5 mg tablet 5 mg PO DAILY Qty: 90 RF: 3 ipratropium-albuterol 0.5 mg-3 mg(2.5 mg base)/3 mL solution for nebulization 3 ml inhalation Q4H PRN (Reason: COPD) Qty: 180 RF: 5 Stiolto Respimat 2.5-2.5 mcg/actuation mist 2 puff inhalation DAILY Qty: 4 RF: 5 losartan 25 mg tablet 25 mg PO DAILY Qty: 90 RF: 3 trazodone 50 mg tablet 50 mg PO HS RF: 0 pravastatin 40 mg tablet 40 mg PO QPM RF: 0 clopidogrel 75 mg tablet 75 mg PO QPM RF: 0 allopurinol 100 mg tablet 100 mg PO QAM RF: 0 famotidine 20 mg tablet 20 mg PO BID RF: 0 metoprolol tartrate 50 mg tablet 50 mg PO BID RF: 0 amlodipine [Norvasc] 10 mg tablet 10 mg PO QPM RF: 0 multivitamin with minerals [Hair,Skin and Nails] Tablet 1 tab PO DAILY RF: 0 hydralazine 10 mg tablet 10 mg PO TID RF: 0 fluticasone propion-salmeterol 113-14 mcg/actuation aerosol powdr breath activated 1 inh INHALATION UD RF: 0 oxycodone 5 mg tablet 5 mg PO Q6H PRN (Reason: pain) Qty: 14 RF: 0 sennosides [Senokot] 8.6 mg tablet 8.6 mg PO HS Qty: 30 RF: 0 docusate sodium [Colace] 100 mg capsule 100 mg PO BID Qty: 60 RF: 0 Discharge Problem: Pneumonia Qualifiers: Pneumonia type: due to unspecified organism Laterality: right Lung location: lower lobe of lung Qualified Code(s): J18.9 - Pneumonia, unspecified organism
[2020-11-26 15:32] LABS: Basophils # (auto) 0.04 K/uL (0-0.2); Basophils % (auto) 0.6 %; Eosinophils # (auto) 0.12 K/uL (0-0.5); Eosinophils % (auto) 1.7 %; Hematocrit (blood only) 49.5 % (42-52); Hemoglobin 15.8 g/dL (14.0-18.0); Immature Granulocytes # (auto) 0.02 K/uL (0.00-0.02); Immature Granulocytes % (auto) 0.3 %; Lymphocytes % (auto) 22.4 %; Mean Corpuscular Hemoglobin 31.7 pg (25-34); Mean Corpuscular Hgb Conc 31.9 g/dL (32-36); Mean Corpuscular Volume 99.4 fL (80-100); Mean Platelet Volume 9.3 fL (7.4-10.4); Monocytes # (auto) 0.93 K/uL (0.11-0.59); Neutrophils # (auto) 4.43 K/uL (1.4-6.5); Platelet Count 197 K/uL (130-400); RDW Coefficient of Variation 13.7 % (11.5-14.5); RDW Standard Deviation 49.4 fL (36.4-46.3); Red Blood Count 4.98 M/uL (4.7-6.1); White Blood Count 7.14 K/uL (4.8-10.8)
--- NOTE | 2020-11-26 15:36 | XRay Report ---
XR chest 1V portable HISTORY: 70 years-old Male cough, rhonchi R chest acute cough COMPARISON: CT abdomen pelvis and chest radiograph 11/22/2020 TECHNIQUE: Portable AP view of the chest FINDINGS: Cardiac silhouette is enlarged. Prior median sternotomy. Chronic obscuration of the left cardiophreni c angle with subsegmental bibasilar opacities. No pneumothorax, large pleural effusion or overt pulmo nary edema. IMPRESSION: 1. Megaly without pulmonary edema. 2. Persistent bibasilar opacities suggestive of atelectasis/scarring. 3. Chronic obscuration of the left cardiophrenic angle compatible with a prominent epicardial fat pad . ACT 112: Negative or not required by law. The above report was generated using voice recognition software. It may contain grammatical, syntax o r spelling errors. Electronically signed by: Jorge L Birmingham M.D. 11/26/2020 3:34 PM
[2020-11-26 15:53] LABS: Alanine Aminotransferase 38 U/L (12-78); Albumin Level 3.1 gm/dl (3.4-5.0); BUN Creatinine Ratio 15.2 (10-20); Blood Urea Nitrogen 23 mg/dl (7-18); Calcium 9.2 mg/dl (8.5-10.1); Carbon Dioxide 29 mmol/L (21-32); Chloride 104 mmol/L (98-107); Est GFR (Non-African American) 46.6 ml/min; Glucose 96 mg/dl (70-99); Lipase 105 U/L (73-393); Sodium 137 mmol/L (136-145)
[2020-11-26 16:07] LABS: Albumin Globulin Ratio 0.8 (0.9-2); Alkaline Phosphatase 83 U/L (45-117); Bilirubin,Total 0.3 mg/dl (0.2-1); Globulin 3.8 gm/dl (2.5-4.0); Total Protein 6.9 gm/dl (6.4-8.2); Troponin I < 0.015 ng/ml (0-0.045)
--- NOTE | 2020-11-26 16:49 | Ultrasound Report ---
ABDOMINAL ULTRASOUND, RIGHT UPPER QUADRANT HISTORY: RUQ pain, cholelithiasis. COMPARISON: CT of the abdomen and pelvis and right upper quadrant ultrasound November 22, 2020. FINDINGS: Hepatic echogenicity is increased. No hepatic lesions are identified although sensitivity i s diminished on this examination. Common bile duct is obscured on this exam. There is no intrahepatic biliary ductal dilatation. There are small gallstones within the gallbladder. There is no gallbladde r wall thickening. Gallbladder is slightly distended. Pancreas body is normal. Head and tail are obsc ured. There is no right hydronephrosis. No sonographic Alicea sign was elicited. IMPRESSION: 1. Cholelithiasis. Mild gallbladder distention. No convincing evidence for acute cholecystitis. 2. Hepatic steatosis. ACT 112: Negative or not required by law. Electronically signed by: Mario Baker M.D. 11/26/2020 4:48 PM
[2020-11-26] MEDS ORDERED: levoFLOXacin/D5W 750 MG/150 ML BAG IV STA (17:07)
[2020-11-26 17:23] LABS: Potassium 4.6 mmol/L (3.5-5.1)
--- NOTE | 2020-11-26 17:59 | History & Physical Report ---
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 Seen and evaluated by Gen surgery today, Dr. Sorensen, who referred back to ED for further evaluation of abdominal pain admit to med tele consult general surgery clear liquid diet, npo after midnight obtain HIDA scan pain mostly mid R abdomen/RLQ - CT a/p reviewed from 11/22 ? if tiny paramedian hernia R mid abdomen, diastases 2.3cm possible etiology of pain place voltaren topically to area TID repeat US reveals cholelithiasis, mild gallbladder distention but no evidence of acute cholecystitis, he is also afebrile and WBC WNL which further does not support this Biliary colic is a possibility as well (2) Chronic respiratory failure: (3) COPD (chronic obstructive pulmonary disease): (4) CAMILO (obstructive sleep apnea): Chronic respiratory failure in setting of COPD and prior tobacco abuse Hypoxic in triage secondary to patient not being on home O2 3 to 4 L at baseline Continue Stiolto, as needed ipratropium Follows [facility] Noncompliant with CPAP (5) Hypertension: BP mildly elevated, likely in setting of pain Continue amlodipine, losartan and hydralazine (6) Coronary artery disease: s/p CABG, Last echo 2015 revealed preserved EF, diastolic dysfunction Continue metoprolol, losartan, pravastatin, Plavix, hydralazine (7) Cerebrovascular disease: History of ischemic CVAs as well as history of parenchymal hemorrhage perioperatively during carotid surgery Has residual aphasia and RHP At baseline Continue Plavix, pravastatin and blood pressure management (8) CKD (chronic kidney disease), stage III: Baseline creatinine 1.4-1.6 BUN/creatinine at baseline, monitor and avoid nephrotoxic agents (9) Solitary kidney: History of atrophic left kidney secondary to HTN, status post left nephrectomy CKD stage III Monitor renal function avoid nephrotoxic agents (10) DVT prophylaxis: SCD/TEDS for now 2/2 to hx of IPH in past monitor daily need for chemical prophylaxis Dispo: med tele [facility]CP: [facility] Pt was seen and examined in collaboration with Dr. Coelho, please see addendum History of Present Illness Chief Complaint: Abdominal pain x5 days. 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 is at bedside and provides majority of history. Pain started last Thursday whenever she tried to lay him in bed. He developed severe right-sided middle abdominal discomfort. Pain was made worse by lying flat and rolling on the right side. It was improved by sitting and standing. She got him up to try to improve pain and when laid back down pain continued. He also admits to pain being made worse with food. He has been on a clear liquid diet for the past 5 days and pain is persistent. Pain does come and go, currently is absent secondary to analgesia. Describes the pain as sharp. He was seen and evaluated in ED on 11/[address] abdomen pelvis as well as right upper quadrant ultrasound. Did reveal cholelithiasis, hepatic steatosis but no acute abnormality. Lab work was otherwise unremarkable. He was seen and evaluated by general surgery Dr. Sorensen today who recommended further evaluation at ED secondary to persistent abdominal pain despite normal initial evaluation. He states his last bowel movement was 3 days ago. Typically he moves his bowels daily, but has not been eating or drinking. He denies any fe carina, chills, sweats, lightheadedness, dizziness, chest pain shortness of breath, nausea, vomiting, dysuria, increased urgency or frequency with urination. He does have chronic shortness of breath secondary to COPD as well as cough. This is unchanged. He has been compliant with medications as manages this. In ED patient remained hemodynamically stable and mildly hypertensive. His CBC and CMP was generally unremarkable. His creatinine was at baseline at 1.48. SARS-CoV-2 is negative. Abdominal ultrasound revealed cholelithiasis and mild gallbladder distention but no convincing evidence of acute cholecystitis. Chest x-ray was negative for acute pathology. He did receive IV morphine and IV Zofran with improvement of symptoms. He was recommended for admission for further evaluation and surgical consultation. Allergies Allergy/AdvReac Type Severity Reaction Status Date / Time aspirin AdvReac Intermediate RELAXES Verified 11/26/20 11:11 RECTUM atorvastatin AdvReac Intermediate RELAXED Verified 11/26/20 11:11 RECTAL SPHINCTER Home Medications Medication Instructions Recorded Confirmed Type allopurinol 100 mg PO QAM 07/13/18 11/26/20 History clopidogrel 75 mg PO QPM 07/13/18 11/26/20 History famotidine 20 mg PO BID 07/13/18 11/26/20 History metoprolol tartrate 50 mg PO BID 07/13/18 11/26/20 History pravastatin 40 mg PO QPM 07/13/18 11/26/20 History trazodone 50 mg PO HS 07/13/18 11/26/20 History amlodipine [Norvasc] 10 mg PO QPM 10/13/18 11/26/20 History multivitamin with minerals 1 tab PO DAILY 11/15/19 11/26/20 History [Hair,Skin and Nails] finasteride 5 mg tablet 5 mg PO DAILY #90 tab 03/20/20 11/26/20 Rx ipratropium 0.5 mg-albuterol 3 mg 3 ml INHALATION Q4H PRN #180 ml 08/14/20 11/26/20 Rx (2.5 mg base)/3 mL nebulization soln losartan 25 mg tablet 25 mg PO DAILY #90 tab 08/20/20 11/26/20 Rx tiotropium 2.5 mcg-olodaterol 2.5 2 puff INHALATION DAILY #4 g 10/09/20 11/26/20 Rx mcg/actuation mist for inhalation docusate sodium [Colace] 100 mg PO BID #60 cap 11/22/20 11/26/20 Rx fluticasone propion-salmeterol 1 inh INHALATION UD 11/22/20 11/26/20 History oxycodone 5 mg PO Q6H PRN #14 tab 11/22/20 11/26/20 Rx sennosides [Senokot] 8.6 mg PO HS #30 tab 11/22/20 11/26/20 Rx hydralazine 25 mg PO TID 11/26/20 11/26/20 History Past Med/Surg History Medical History Abnormal EKG BPH (benign prostatic hyperplasia) BPH with obstruction/lower urinary tract symptoms Cerebrovascular disease s/p multiple ischemic strokes Cholelithiasis Chronic kidney disease, stage 3a CKD (chronic kidney disease), stage III COPD (chronic obstructive pulmonary disease) Coronary artery disease s/p CABG Dyslipidemia Gout Hearing deficit History of bronchitis History of intracranial hemorrhage parenchymal hemorrhage perioperatively during / after carotid surgery Hypertension On anticoagulant therapy plavix daily On home oxygen therapy 2L N/C prn/HS Peripheral vascular disease Pulmonary nodule CXR [facility] 07/03/18: 1.3 cm right midlung nodule, slightly enlarged compared to 04/18/15. F/U with CT recommended. Sepsis hx of Solitary kidney atrophic left kidney, nephrectomy performed for hypertension Stroke x5---per has aphasia, right arm weakness/loss of peripheral vision Urinary retention UTI (urinary tract infection) due to Enterococcus Vitamin D deficiency Surgical History History of bronchoscopy x2 History of cardiac cath x2----no stents History of colonoscopy History of tooth extraction all upper teeth Status post abdominal aortic aneurysm (AAA) repair 1998 @ [facility] [place] Status post carotid endarterectomy 09/30/2013--left @ [facility] [place] Status post coronary artery bypass graft 1998 @ [facility] [place] Status post nephrectomy left atrophic, nonfunctional associated with hypertension Status post transurethral resection of prostate Family History Sister Family history of diabetes mellitus Diabetes Brother Family history of diabetes mellitus Diabetes Heart disease Hypertension Other No family history of adverse response to anesthesia Social History Smoking Status: Former smoker Tobacco Type: Cigarettes Cigarettes Per Day: 20-40; Smoking End Date: 10/2007; Second Hand Exposure: No; Hx Alcohol Use: No Hx Substance Use: No Preferred Language: Persian Communication Ability: Effective Visual Impairment: No Limitations Hearing Ability: Normal 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 To Factory Clerk Required: No Beliefs That Will Affect Care: None marital status: Current Living Situation: Spouse Current Living Situation Comment: with and sister current occupational status: retired Feels Safe at Home: Yes Assistive Devices: None Review of Systems Review of Systems: All systems reviewed & are unremarkable except as noted in HPI & below Physical Exam Physical Exam: Constitutional: Morbidly obese, chronically ill male, lying in bed, WD/WN, vitals as above, NAD, mild dysarthria, answers questions appropriately Head: Normocephalic, Atraumatic Eyes: PERRL, conjunctivae normal, anicteric sclerae, tearing of right eye ENMT: external ear and nose normal, oropharynx normal Neck: trachea midline, no thyromegaly normal visual inspection Respiratory: normal respiratory effort, lungs clear to auscultation, no wheeze, rales, rhonchi. Normal insp/exp effort, no accessory muscle use Cardiovascular: Distant heart sounds secondary to body habitus, RRR, no murmur, no edema chronic venous stasis changes vessels: no JVD or carotid bruit Chest: normal inspection of chest Abdomen: Distended and protuberant abdomen, firm, tender to palpation in right mid lower quadrant,no rebound, no guarding or rigidity, normal bowel sounds Musculoskeletal: no cyanosis or clubbing, active range of motion x4 with generalized weakness Skin: no rashes, warm and dry normal turgor Neurologic: PERRL, EOMI, accommodation nl, no face palsy, no dysarthria CN's II-XI intact bilaterally and moves all extremities Psychiatric: A+Ox3 to basics only, euthymic affect Lymphatic: no cervical or axillary lymphadenopathy : deferred Results & Data Results & Data ([facility]) Vital Signs (Past 12 Hours) Vital Signs Temp Pulse Resp BP Pulse Ox 11/26/20 16:50 84 16 90 11/26/20 16:44 83 16 90 11/26/20 16:10 80 18 92 11/26/20 16:02 84 12 88 L 11/26/20 15:42 74 9 L 163/81 H 88 L 11/26/20 15:10 99 11/26/20 12:34 36.9 C 71 20 111/66 90 Diagnostic Findings Chest X-Ray 11/26/20 14:13 XR chest 1V portable HISTORY: 70 years-old Male cough, rhonchi R chest acute cough COMPARISON: CT abdomen pelvis and chest radiograph 11/22/2020 TECHNIQUE: Portable AP view of the chest FINDINGS: Cardiac silhouette is enlarged. Prior median sternotomy. Chronic obscuration of the left cardiophrenic angle with subsegmental bibasilar opacities. No pneumot horax, large pleural effusion or overt pulmonary edema. IMPRESSION: 1. Megaly without pulmonary edema. 2. Persistent bibasilar opacities suggestive of atelectasis/scarring. 3. Chronic obscuration of the left cardiophrenic angle compatible with a prominent epicardial fat pad. ACT 112: Negative or not required by law. The above report was generated using voice recognition software. It may contain grammatical, syntax or spelling errors. Electronically signed by: Jorge L Birmingham M.D. 11/26/2020 3:34 PM Abdomen Ultrasound 11/26/20 14:22 ABDOMINAL ULTRASOUND, RIGHT UPPER QUADRANT HISTORY: RUQ pain, cholelithiasis. COMPARISON: CT of the abdomen and pelvis and right upper quadrant ultrasound November 22, 2020. FINDINGS: Hepatic echogenicity is increased. No hepatic lesions are identified although sensitivity is diminished on this examination. Common bile duct is obscured on this exam. There is no intrahepatic biliary ductal dilatation. There are small gallstones within the gallbladder. There is no gallbladder wall thickening. Gallbladder is slightly distended. Pancreas body is normal. Head and tail are obscured. There is no right hydronephrosis. No sonographic Alicea sign was elicited. IMPRESSION: 1. Cholelithiasis. Mild gallbladder distention. No convincing evidence for acute cholecystitis. 2. Hepatic steatosis. ACT 112: Negative or not required by law. Electronically signed by: Mario Baker M.D. 11/26/2020 4:48 PM Medications Administered Medication List Discontinued Medications Levofloxacin/Dextrose (Levaquin/D5w) 750 mg in 150 mls @ 100 mls/hr IV NOW STA Stop: 11/26/20 18:36 Last Admin: 11/26/20 17:37 Dose: Not Given Documented by: [id number] Morphine Sulfate (Morphine Sulfate 4 Mg/Ml 1 Ml Carp\Vial) 4 mg IV NOW STA Stop: 11/26/20 14:19 Last Admin: 11/26/20 15:46 Dose: 4 mg Documented by: [id number] Ondansetron HCl (Ondansetron Inj 2 Mg/Ml 2 Ml Vial) 4 mg IV NOW STA Stop: 11/26/20 14:19 Last Admin: 11/26/20 15:46 Dose: 4 mg Documented by: [id number] ECG Rate (beats per minute): 80 Rhythm: normal sinus COVID-19 Results Results COVID-19 Adm Lab Results: RBC 4.98 M/uL (4.7-6.1) 11/26/20 WBC 7.14 K/uL (4.8-10.8) 11/26/20 Hgb 15.8 g/dL (14.0-18.0) 11/26/20 Hct 49.5 % (42-52) 11/26/20 Plt Count 197 K/uL (130-400) 11/26/20 Neutrophils (%) (Auto) 62.0 % 11/26/20 Lymphocytes (%) (Auto) 22.4 % 11/26/20 Monocytes # (Auto) 0.93 K/uL (0.11-0.59) H 11/26/20 Eosinophils # (Auto) 0.12 K/uL (0-0.5) 11/26/20 Immature Granulocyte % (Auto) 0.3 % 11/26/20 Neutrophils # (Auto) 4.43 K/uL (1.4-6.5) 11/26/20 Lymphocytes # (Auto) 1.60 K/uL (1.2-3.4) 11/26/20 Monocytes # (Auto) 0.93 K/uL (0.11-0.59) H 11/26/20 Eosinophils # (Auto) 0.12 K/uL (0-0.5) 11/26/20 Basophils # (Auto) 0.04 K/uL (0-0.2) 11/26/20 Immature Granulocyte # (Auto) 0.02 K/uL (0.00-0.02) 11/26/20 Na 137 mmol/L (136-145) 11/26/20 K 4.6 mmol/L (3.5-5.1) 11/26/20 Cl 104 mmol/L (98-107) 11/26/20 CO2 29 mmol/L (21-32) 11/26/20 Anion Gap 4.0 (3-11) 11/26/20 BUN 23 mg/dl (7-18) H 11/26/20 Creatinine 1.48 mg/dl (0.6-1.4) H 11/26/20 BUN/Creatinine Ratio 15.2 (10-20) 11/26/20 Glucose Level 96 mg/dl (70-99) 11/26/20 Ca 9.2 mg/dl (8.5-10.1) 11/26/20 Total Bilirubin 0.3 mg/dl (0.2-1) 11/26/20 AST/SGOT 19 U/L (15-37) 11/26/20 ALT/SGPT 38 U/L (12-78) 11/26/20 Alkaline Phosphatase 83 U/L (45-117) 11/26/20 Total Protein 6.9 gm/dl (6.4-8.2) 11/26/20 Albumin 3.1 gm/dl (3.4-5.0) L 11/26/20 Globulin 3.8 gm/dl (2.5-4.0) 11/26/20 Albumin/Globulin Ratio 0.8 (0.9-2) L 11/26/20 Troponin I < 0.015 ng/ml (0-0.045) 11/26/20 PT-[id number] Natriuretic Pep Pending 11/26/20 Procalcitonin Pending 11/26/20 COVID-19 PCR NEGATIVE (Negative) 11/26/20 Chest X-Ray 11/26/20 Code Status & VTE Plan Code Status Full Code VTE Prophylaxis Plan VTE Prophylaxis will be ordered: Yes Supervising Physician Co-Signing Physician Notes Attending addendum: The patient was seen and examined in emergency room in presence of the He has been complaining of right lower quadrant pain since Thursday last The pain seems to be worse with lying down and lying flat He denies any other symptoms associated with it, no nausea no vomiting, no fever and/or chills, no radiation of the pain but he does have constipation On examination He is obese lying in bed comfortably Hemodynamically stable with systolic blood pressure at 163/81 Chest-decreased breath sound both sides without any crackles and/or wheezing Heart-S1-S2, regular Abdomen-distended, more on the right lower quadrant compared with left lower quadrant, tender to palpate right lower quadrant with lumpiness, no tenderness in McBurney's point, no guarding and rigidity Extremitiestrace edema bilaterally CNSalert, awake and oriented x3 Admission labs, imaging studies and EKG noted Has cholelithiasis without cholecystitis, no other signs and or symptoms of infection We will get surgical evaluation and HIDA scan He refused CAT scan of the abdomen as one was done on eighth of this month that did show probable fat herniation in the right lower quadrant Agree with assessment and plan as outlined above by LAXMI Dejesus Dr. (1) Coronary artery disease Associated angina: without angina Coronary Disease-Associated Artery/Lesion type: [place] artery [place] vs. transplanted heart: [place] heart Qualified Code(s): I25.10 - Atherosclerotic heart disease of [place] coronary artery without angina pectoris (2) Abdominal pain Abdominal location: right upper quadrant Qualified Code(s): R10.11 - Right upper quadrant pain (3) Hypertension Hypertension type: unspecified Qualified Code(s): I10 - Essential (primary) hypertension
[2020-11-26] MEDS ORDERED: ONDANSETRON INJ 2 MG/ML 2 ML VIAL IV PRN (19:27)
[2020-11-26] MEDS ORDERED: ALBUT/IPRATROP 3MG/0.5MG NEB 3 ML VIAL INH PRN (19:27)
[2020-11-26] MEDS: oxyCODONE HCL IR 5 MG TAB (IMMEDIATE RELEASE) PO PRN (20:07)
--- NOTE | 2020-11-26 21:10 | Surgery Consultation ---
Date of Consultation November 26, 2020 Assessment & Plan (1) Abdominal pain: Patient has been admitted to the hospital on the hospitalist service. There is currently no convincing evidence of acute cholecystitis however biliary colic has not been ruled out. To further evaluate for biliary source as the patient's cause of pain a HIDA scan has been ordered for tomorrow. Further recommendations will be made based on results of the HIDA scan as well as the patient's clinical course as it unfolds. Patient has been made n.p.o. after midnight in anticipation of his HIDA scan. Dr. Jeffers-please see note above-patient readmitted to the hospital with somewhat nonspecific abdominal pain. He does have evidence of a gallstone, but his symptoms are somewhat nonspecific-he is scheduled for a HIDA scan today. He was seen by Dr. Sorensen yesterday in the office and referred back to the emergency room for further evaluation. Currently he is resting comfortably and has slept overnight but did receive some oral pain medication for general nonspecific abdominal pain. He has continued to receive his Plavix. History of Present Illness Reason for Consultation: Abdominal pain with concern for cholecystitis Attending Physician: Nirmal Coelho MD History of Present Illness This is a 70-year-old male with multiple medical problems who was referred to the emergency department by Dr. Rob Villalobos after being seen in the office secondary to abdominal pain. Patient was previously seen in the emergency department on November 22 of this year secondary to abdominal pain on the right side of his abdomen. He did have a CT scan that showed gallstones but no convincing evidence of cholecystitis and he was also noted to have a normal white blood cell count. He was discharged home from the a forementioned emergency department visit and was seen by Dr. Sorensen in the office today for further evaluation. As the patient's previous imaging did not show any convincing evidence of cholecystitis and as the patient was complaining of ongoing abdominal pain Dr. Rob Wyatt felt that evaluation in the emergency department would be beneficial. I did question the patient further on his abdominal pain. As noted the patient says that the pain is primarily located in the right upper quadrant. He notes the pain does not radiate he could not identify any palliative or provocative factors. I asked the patient if the pain was related to meals which he denied. He denies any fevers, shakes, chills. He denies any nausea vomiting. He denies any diarrhea. Today in the emergency department the patient did have repeat imaging of his abdomen in the form of an ultrasound. This ultrasound showed cholelithiasis with mild gallbladder distention and no gallbladder wall thickening. Interpreting radiologist did not feel there is any convincing evidence of cholecystitis. A chest x-ray showed bibasilar opacities that were noted on previous imaging that were suggestive of atelectasis or scarring. Labs including CBC were white blood cell count, hemoglobin, hematocrit, and platelet count were all noted to be within normal range. A chemistry profile showed the patient sodium and potassium were both normal. His BUN and creatinine were both elevated at 23 and 1.4. His creatinine was within the patient's baseline range .There is no elevation of patient's bilirubin, LFTs, or lipase. A Covid test was performed and was noted to be negative. At the time of my interview with the patient he was resting comfortably in bed, he was pain-free, and he was in no distress. Allergies Allergy/AdvReac Type Severity Reaction Status Date / Time aspirin AdvReac Intermediate RELAXES Verified 11/26/20 11:11 RECTUM atorvastatin AdvReac Intermediate RELAXED Verified 11/26/20 11:11 RECTAL SPHINCTER Home Medications Medication Instructions Recorded Confirmed Type allopurinol 100 mg PO QAM 07/13/18 11/26/20 History clopidogrel 75 mg PO QPM 07/13/18 11/26/20 History famotidine 20 mg PO BID 07/13/18 11/26/20 History metoprolol tartrate 50 mg PO BID 07/13/18 11/26/20 History pravastatin 40 mg PO QPM 07/13/18 11/26/20 History trazodone 50 mg PO HS 07/13/18 11/26/20 History amlodipine [Norvasc] 10 mg PO QPM 10/13/18 11/26/20 History multivitamin with minerals 1 tab PO DAILY 11/15/19 11/26/20 History [Hair,Skin and Nails] finasteride 5 mg tablet 5 mg PO DAILY #90 tab 03/20/20 11/26/20 Rx ipratropium 0.5 mg-albuterol 3 mg 3 ml INHALATION Q4H PRN #180 ml 08/14/20 11/26/20 Rx (2.5 mg base)/3 mL nebulization soln losartan 25 mg tablet 25 mg PO DAILY #90 tab 08/20/20 11/26/20 Rx tiotropium 2.5 mcg-olodaterol 2.5 2 puff INHALATION DAILY #4 g 10/09/20 11/26/20 Rx mcg/actuation mist for inhalation docusate sodium [Colace] 100 mg PO BID #60 cap 11/22/20 11/26/20 Rx fluticasone propion-salmeterol 1 inh INHALATION UD 11/22/20 11/26/20 History oxycodone 5 mg PO Q6H PRN #14 tab 11/22/20 11/26/20 Rx sennosides [Senokot] 8.6 mg PO HS #30 tab 11/22/20 11/26/20 Rx hydralazine 25 mg PO TID 11/26/20 11/26/20 History Patient History Medical History Abnormal EKG BPH (benign prostatic hyperplasia) BPH with obstruction/lower urinary tract symptoms Cerebrovascular disease s/p multiple ischemic strokes Cholelithiasis Chronic kidney disease, stage 3a CKD (chronic kidney disease), stage III COPD (chronic obstructive pulmonary disease) Coronary artery disease s/p CABG Dyslipidemia Gout Hearing deficit History of bronchitis History of intracranial hemorrhage parenchymal hemorrhage perioperatively during / after carotid surgery Hypertension On anticoagulant therapy plavix daily On home oxygen therapy 2L N/C prn/HS Peripheral vascular disease Pulmonary nodule CXR [facility] 07/03/18: 1.3 cm right midlung nodule, slightly enlarged compared to 04/18/15. F/U with CT recommended. Sepsis hx of Solitary kidney atrophic left kidney, nephrectomy performed for hypertension Stroke x5---per has aphasia, right arm weakness/loss of peripheral vision Urinary retention UTI (urinary tract infection) due to Enterococcus Vitamin D deficiency Surgical History History of bronchoscopy x2 History of cardiac cath x2----no stents History of colonoscopy History of tooth extraction all upper teeth Status post abdominal aortic aneurysm (AAA) repair 1998 @ [facility] [place] Status post carotid endarterectomy 09/30/2013--left @ [facility] [place] Status post coronary artery bypass graft 1998 @ [facility] [place] Status post nephrectomy left atrophic, nonfunctional associated with hypertension Status post transurethral resection of prostate Family History Sister Family history of diabetes mellitus Diabetes Brother Family history of diabetes mellitus Diabetes Heart disease Hypertension Other No family history of adverse response to anesthesia Social History Smoking Status: Former smoker Tobacco Type: Cigarettes Cigarettes Per Day: 20-40; Smoking End Date: 10/2007; Second Hand Exposure: No; Hx Alcohol Use: Yes Alcohol type: beer Hx Substance Use: No Preferred Language: Slovak Communication Ability: Effective Visual Impairment: No Limitations Hearing Ability: Normal Seamless Hosiery Knitter Required: No Beliefs That Will Affect Care: None marital status: Current Living Situation: Spouse Current Living Situation Comment: with and sister current occupational status: retired Other Information That Helps Us Care for You: No Feels Safe at Home: Yes Assistive Devices: Oxygen - at Night Review of Systems Constitutional: no fever and no chills Eyes: no diplopia Ear, Nose, Mouth, Throat: no ear pain Respiratory: + cough (Chronic) Cardiovascular: no chest pain Gastrointestinal: + abdominal pain (Right upper quadrant as noted in the HPI); no nausea and no vomiting Genitourinary: no dysuria Musculoskeletal: no back pain Integumentary: no rash Neurologic: + unsteadiness Physical Exam Constitutional: no acute distress Eyes: no conjunctival abnormality ENMT: Ears: no hearing impairment Neck: trachea midline Respiratory: normal respiratory effort; no respiratory distress and no labored breathing Cardiovascular: Rate/Rhythm: regular rate and regular rhythm Gastrointestinal (Abdomen): Abdomen is rotund but soft. Bowel sounds are present. Patient did have pain with deep palpation in the right upper quadrant. There is no rebound tenderness or guarding. Musculoskeletal: No calf tenderness Skin: no rashes, warm and dry Neurologic: moves all extremities Psychiatric: A+Ox3, euthymic affect Affect: + flat affect Results & Data ([facility]) Vital Signs (Past 12 Hours) Vital Signs Temp Pulse Pulse Resp BP BP Pulse Ox 11/26/20 19:54 85 11/26/20 19:27 36.6 C 90 20 182/96 H 87 L 11/26/20 18:31 13 119/74 11/26/20 18:00 14 161/96 H 91 11/26/20 17:30 16 158/91 H 94 11/26/20 17:00 83 17 92 11/26/20 16:50 84 16 90 11/26/20 16:44 83 16 90 11/26/20 16:10 80 18 92 11/26/20 16:02 84 12 88 L 11/26/20 15:42 74 9 L 163/81 H 88 L 11/26/20 15:10 99 11/26/20 12:34 36.9 C 71 20 111/66 90 PG Care Time/CCT Total # of Minutes Spent Total Time Spent with Patient: Total time spent is greater than 50% in coordination of care (as documented) at patient's floor/unit and/or counseling patient: Coding Level of Care Code 63734 Inpt Consult Level 5 Diagnoses Abdominal pain R10.11 Abdominal location: right upper quadrant (1) Abdominal pain Abdominal location: right upper quadrant Qualified Code(s): R10.11 - Right upper quadrant pain
[2020-11-26] MEDS: CLOPIDOGREL BISULFATE 75 MG TAB PO SCH (21:47)
[2020-11-26] MEDS: PRAVASTATIN SOD 40 MG TAB PO SCH (21:47)
[2020-11-26] MEDS: DOCUSATE SODIUM 100 MG CAP PO SCH (21:47)
[2020-11-26] MEDS: amLODIPine BESYLATE 5 MG TAB PO SCH (21:48)
[2020-11-26] MEDS: hydrALAZINE HCL 25 MG TAB PO SCH (21:48)
[2020-11-26] MEDS: METOPROLOL TARTRATE 50 MG TAB PO SCH (21:48)
[2020-11-26] MEDS: SENNA 8.6 MG TAB PO SCH (21:48)
[2020-11-26] MEDS: DICLOFENAC SOD 1% GEL 100 GM TUBE EXT SCH (21:49)
[2020-11-26] MEDS: traZODone HCL 50 MG TAB PO SCH (21:49)
[2020-11-27] MEDS: oxyCODONE HCL IR 5 MG TAB (IMMEDIATE RELEASE) PO PRN ×2 (02:03→11:36)
[2020-11-27 07:54] LABS: Basophils # (auto) 0.03 K/uL (0-0.2); Basophils % (auto) 0.4 %; Eosinophils # (auto) 0.11 K/uL (0-0.5); Eosinophils % (auto) 1.3 %; Hematocrit (blood only) 49.3 % (42-52); Hemoglobin 15.9 g/dL (14.0-18.0); Immature Granulocytes # (auto) 0.02 K/uL (0.00-0.02); Immature Granulocytes % (auto) 0.2 %; Lymphocytes # (auto) 1.83 K/uL (1.2-3.4); Lymphocytes % (auto) 21.6 %; Mean Corpuscular Hemoglobin 31.8 pg (25-34); Mean Corpuscular Volume 98.6 fL (80-100); Mean Platelet Volume 9.1 fL (7.4-10.4); Monocytes # (auto) 1.16 K/uL (0.11-0.59); Monocytes % (auto) 13.7 %; Neutrophils # (auto) 5.33 K/uL (1.4-6.5); Neutrophils % (auto) 62.8 %; Platelet Count 180 K/uL (130-400); RDW Coefficient of Variation 13.6 % (11.5-14.5); RDW Standard Deviation 48.4 fL (36.4-46.3); White Blood Count 8.48 K/uL (4.8-10.8)
[2020-11-27 07:55] LABS: Mean Corpuscular Hgb Conc 32.3 g/dL (32-36)
[2020-11-27 08:10] LABS: Albumin Globulin Ratio 0.9 (0.9-2); BUN Creatinine Ratio 17.6 (10-20); Bilirubin,Total 0.4 mg/dl (0.2-1); Calcium 9.5 mg/dl (8.5-10.1); Creatinine Clr Calc Pharmacy 55.1 ml/min; Est GFR (African American) 56.8 ml/min; Globulin 3.3 gm/dl (2.5-4.0); Magnesium 2.1 mg/dl (1.8-2.4); Potassium 5.1 mmol/L (3.5-5.1); Total Protein 6.3 gm/dl (6.4-8.2)
[2020-11-27] MEDS: DOCUSATE SODIUM 100 MG CAP PO SCH ×2 (09:21→20:33)
[2020-11-27] MEDS: allopurinoL 100 MG TAB PO SCH (09:21)
[2020-11-27] MEDS: FAMOTIDINE 20 MG TAB PO SCH (09:22)
[2020-11-27] MEDS: METOPROLOL TARTRATE 50 MG TAB PO SCH ×2 (09:22→20:34)
[2020-11-27] MEDS: FINASTERIDE 5 MG TAB PO SCH (09:22)
[2020-11-27] MEDS: DICLOFENAC SOD 1% GEL 100 GM TUBE EXT SCH ×3 (09:22→20:33)
[2020-11-27] MEDS: LOSARTAN POTASSIUM 25 MG TAB PO SCH (09:22)
[2020-11-27] MEDS: MULTIVITAMIN TAB PO SCH (09:22)
[2020-11-27] MEDS: UMECLIDINIUM/VILANTEROL 62.5/25MCG 7 PUFFS/INHALER INH SCH (09:22)
[2020-11-27] MEDS: hydrALAZINE HCL 25 MG TAB PO SCH ×3 (09:22→20:34)
--- NOTE | 2020-11-27 11:02 | Nuclear Medicine Report ---
NUCLEAR MEDICINE HEPATOBILIARY SCAN HISTORY: Right upper quadrant abdominal pain. r/o biliary colic; abd pain COMPARISON: Abdominal ultrasound 11/26/2020. TECHNIQUE: Immediately following the intravenous administration of 5.4 mCi Tc-99m Choletec, dynamic a nterior abdominal imaging was performed. FINDINGS: Uniform hepatic tracer accumulation is shown. Prompt intrahepatic biliary excretion is seen. The gall bladder, common bile duct, and small bowel are all visualized by 35 minutes. This appearance represen ts the normal sequence of biliary excretion. IMPRESSION: 1. No evidence for cystic duct obstruction. ACT 112: Negative or not required by law. Electronically signed by: Terrence Ellison M.D. 11/27/2020 11:00 AM
[2020-11-27] MEDS: ACETAMINOPHEN 325 MG TAB PO PRN (11:35)
[2020-11-27] MEDS ORDERED: bisacodyL 10 MG SUPP PR STA (16:13)
[2020-11-27] MEDS ORDERED: MAGNESIUM HYDROXIDE SUSP 30 ML UDC PO ONE (16:30)
[2020-11-27] MEDS: SENNA 8.6 MG TAB PO SCH ×2 (16:48→20:35)
--- NOTE | 2020-11-27 17:27 | Hospitalist Progress Note ---
Date of Service November 27, 2020 Assessment & Plan (1) Abdominal pain: This is a 70-year-old male who has significant complex medical history consistent with chronic respiratory failure secondary to severe COPD oxygen dependent on 3 to 4 L, CAD with history of CABG, history of AAA status post repair, history of multiple CVA with residual right-sided weakness and aphasia, diastolic CHF, HTN, HLD, CKD stage III, solitary kidney secondary to left nephrectomy, history of sepsis secondary to UTI, gout, carotid artery disease status post left CEA, ambulatory dysfunction presents ED secondary to abdominal pain x5 days. Seen and evaluated by Gen surgery today, Dr. Sorensen, who referred back to ED for further evaluation of abdominal pain CT scan of the abdomen did not show any significant finding except hepatic steatosis and cholelithiasis without any evidence of cholecystitis HIDA scan has been negative Appreciate surgery input and recommendation Questionable herniation of fatty tissue and the pain seems to be improving with local NSAIDs gel Constipation may be contributing Medications have been given for that We will get PT and OT evaluation prior to discharge (2) Chronic respiratory failure: (3) COPD (chronic obstructive pulmonary disease): (4) CAMILO (obstructive sleep apnea): Chronic respiratory failure in setting of COPD and prior tobacco abuse Hypoxic in triage secondary to patient not being on home O2 3 to 4 L at baseline Continue Stiolto, as needed ipratropium Follows [facility]m Noncompliant with CPAP (5) Hypertension: BP mildly elevated, likely in setting of pain Continue amlodipine, losartan and hydralazine (6) Coronary artery disease: s/p CABG, Last echo 2015 revealed preserved EF, diastolic dysfunction Continue metoprolol, losartan, pravastatin, Plavix, hydralazine Significant vascular disease Remains stable (7) Cerebrovascular disease: History of ischemic CVAs as well as history of parenchymal hemorrhage perioperatively during carotid surgery Has residual aphasia and RHP At baseline Continue Plavix, pravastatin and blood pressure management (8) CKD (chronic kidney disease), stage III: Baseline creatinine 1.4-1.6 BUN/creatinine at baseline, monitor and avoid nephrotoxic agents (9) Solitary kidney: History of atrophic left kidney secondary to HTN, status post left nephrectomy CKD stage III Monitor renal function avoid nephrotoxic agents (10) DVT prophylaxis: SCD/TEDS for now 2/2 to hx of IPH in past monitor daily need for chemical prophylaxis Dispo: med tele PCP: [facility] Medically stable Admission and Anticipated Discharge Date Admission Date: November 26, 2020 Subjective 11/27/2020 yes The patient was seen and examined in medical telemetry unit He has been feeling a little bit better but he still has right lower quadrant tenderness Denies any fever and/or chills, nausea and or vomiting, cough or shortness of breath Bowel has not moved for the last 3 days Review of Systems Review of Systems: All systems reviewed and are unremarkable except as noted below Gastrointestinal: + abdominal pain (Tenderness right lower quadrant); no nausea and no vomiting Physical Exam Physical Exam: Sitting on a chair without any acute distress Constitutional: well developed, well nourished, + ill appearing and + morbidly obese Eyes: PERRL, conjunctivae normal, anicteric sclerae ENMT: external ear and nose normal, oropharynx normal Neck: trachea midline, no thyromegaly Respiratory: no respiratory distress and no labored breathing Auscultation: + diminished lung sounds and + crackles (Occasional crackles at the bases); no wheezes Cardiovascular: Rate/Rhythm: regular rate and regular rhythm Heart Sounds: no murmur Extremities: + edema (Bilateral trace to 1+ leg edema) Gastrointestinal (Abdomen): Inspection/Auscultation: + abdomen distended and normal bowel sounds Percussion/Palpation: + abdomen tender (Right lower quadrant without any guarding and/or rigidity) and abdomen soft Musculoskeletal: No acute arthritis in any joint Neurologic: Alert, awake and oriented x3. Generally weak Lymphatic: no cervical or axillary lymphadenopathy Results & Data Results & Data ([facility]) Vital Signs (Past 12 Hours) Vital Signs Temp Pulse Pulse Resp BP Pulse Ox 11/27/20 14:50 37.1 C 117 H 18 130/66 88 L 11/27/20 14:29 114 H 11/27/20 11:30 37.0 C 18 115/84 92 11/27/20 07:10 83 11/27/20 07:04 37.2 C 87 20 131/78 90 Laboratory Results Short CBC 11/27/20 11/27/20 Range/Units 07:24 07:48 WBC Cancelled 8.48 Hgb Cancelled 15.9 Hct Cancelled 49.3 Plt Count Cancelled 180 BMP 11/26/20 11/27/20 16:55 07:24 Sodium 138 Potassium 4.6 5.1 Chloride 107 Carbon Dioxide 24 BUN 25 H Creatinine 1.42 H Glucose 87 Calcium 9.5 Liver Function 11/26/20 11/27/20 Range/Units 16:55 07:24 Total Bilirubin 0.4 (0.2-1) mg/dl AST 19 27 (15-37) U/L ALT 34 (12-78) U/L Alkaline Phosphatase 86 (45-117) U/L Albumin 3.0 L (3.4-5.0) gm/dl Medications Administered Current Inpatient Medications Acetaminophen (Acetaminophen 325 Mg Tab) 650 mg PO Q4H PRN PRN Reason: Pain or Fever Stop: 12/26/20 19:26 Last Admin: 11/27/20 11:35 Dose: 650 mg Documented by: Albuterol (Albut/Ipratrop 3mg/0.5mg Neb 3 Ml Vial) 3 ml INH Q4H PRN PRN Reason: Shortness Of Breath Stop: 12/26/20 19:26 Allopurinol (Allopurinol 100 Mg Tab) 100 mg PO QAM [facility] Stop: 12/27/20 08:59 Last Admin: 11/27/20 09:21 Dose: Not Given Documented by: Amlodipine Besylate (Amlodipine Besylate 5 Mg Tab) 10 mg PO QPM NATALYA Stop: 12/26/20 20:59 Last Admin: 11/26/20 21:48 Dose: 10 mg Documented by: Clopidogrel Bisulfate (Clopidogrel Bisulfate 75 Mg Tab) 75 mg PO QPM NATALYA Stop: 12/26/20 20:59 Last Admin: 11/26/20 21:47 Dose: 75 mg Documented by: Diclofenac Sodium (Diclofenac Sod 1% Gel 100 Gm Tube) 4 gm EXT TID NATALYA Stop: 12/26/20 20:59 Last Admin: 11/27/20 14:48 Dose: 4 gm Documented by: Docusate Sodium (Docusate Sodium 100 Mg Cap) 100 mg PO BID NATALYA Stop: 12/26/20 20:59 Last Admin: 11/27/20 09:21 Dose: Not Given Documented by: Famotidine (Famotidine 20 Mg Tab) 20 mg PO QAM [facility] Stop: 12/27/20 08:59 Last Admin: 11/27/20 09:22 Dose: Not Given Documented by: Finasteride (Finasteride 5 Mg Tab) 5 mg PO DAILY [facility] Stop: 12/27/20 08:59 Last Admin: 11/27/20 09:22 Dose: Not Given Documented by: Hydralazine HCl (Hydralazine Hcl 25 Mg Tab) 25 mg PO TID NATALYA Stop: 12/26/20 20:59 Last Admin: 11/27/20 14:49 Dose: 25 mg Documented by: Losartan Potassium (Losartan Potassium 25 Mg Tab) 25 mg PO DAILY NATALYA Stop: 12/27/20 08:59 Last Admin: 11/27/20 09:22 Dose: Not Given Documented by: Metoprolol Tartrate (Metoprolol Tartrate 50 Mg Tab) 50 mg PO BID NATALYA Stop: 12/26/20 20:59 Last Admin: 11/27/20 09:22 Dose: Not Given Documented by: Multivitamins (Multivitamin Tab) 1 tab PO QAM [facility] Stop: 12/27/20 08:59 Last Admin: 11/27/20 09:22 Dose: Not Given Documented by: Ondansetron HCl (Ondansetron Inj 2 Mg/Ml 2 Ml Vial) 4 mg IV Q6H PRN PRN Reason: Nausea Stop: 12/26/20 19:26 Oxycodone HCl (Oxycodone Hcl Ir 5 Mg Tab (Immediate Release)) 5 mg PO Q6H PRN PRN Reason: pain Stop: 12/10/20 19:26 Last Admin: 11/27/20 11:36 Dose: 5 mg Documented by: Pravastatin Sodium (Pravastatin Sod 40 Mg Tab) 40 mg PO QPM [facility] Stop: 12/26/20 20:59 Last Admin: 11/26/20 21:47 Dose: 40 mg Documented by: Sennosides (Senna 8.6 Mg Tab) 8.6 mg PO HS [facility] Stop: 12/26/20 20:59 Last Admin: 11/26/20 21:48 Dose: 8.6 mg Documented by: Sennosides (Senna 8.6 Mg Tab) 17.2 mg PO QAM [facility] Stop: 12/27/20 16:14 Last Admin: 11/27/20 16:48 Dose: 17.2 mg Documented by: Trazodone HCl (Trazodone Hcl 50 Mg Tab) 50 mg PO [facility] Stop: 12/26/20 20:59 Last Admin: 11/26/20 21:49 Dose: 50 mg Documented by: Umeclidinium/Vilanterol (Umeclidinium/Vilanterol 62.5/25mcg 7 Puffs/Inhaler) 1 puffs INH QAM [facility] Stop: 12/27/20 08:59 Last Admin: 11/27/20 09:22 Dose: 1 puffs Documented by: (1) Abdominal pain Abdominal location: right upper quadrant Qualified Code(s): R10.11 - Right upper quadrant pain (2) Hypertension Hypertension type: unspecified Qualified Code(s): I10 - Essential (primary) hypertension (3) Coronary artery disease Coronary Disease-Associated Artery/Lesion type: [place] artery [place] vs. transplanted heart: [place] heart Associated angina: without angina Qualified Code(s): I25.10 - Atherosclerotic heart disease of [place] coronary artery without angina pectoris
--- NOTE | 2020-11-27 18:23 | Electrocardiogram Report ---
Test Reason : Blood Pressure : / mmHG Vent. Rate : 080 BPM Atrial Rate : 080 BPM P-R Int : 154 ms QRS Dur : 084 ms QT Int : 388 ms P-R-T Axes : 053 035 -27 degrees QTc Int : 447 ms Poor data quality, interpretation may be adversely affected Normal sinus rhythm Low voltage QRS Nonspecific T wave abnormality Poor R wave progression, consider anterior AR vs. lead placement vs. LVH Abnormal ECG When compared with ECG of 22-NOV-2020 00:31, No significant change was found Confirmed by Jeremiah Morales ([id number]) on 11/27/2020 6:22:31 PM Referred By: Gina Jeter Confirmed By:Matti Morales
--- NOTE | 2020-11-27 18:52 | Surgery Progress Note ---
Date of Service November 27, 2020 Assessment & Plan (1) Biliary colic: Came back and reevaluated the patient this evening approximately 645 where he was feeling much better sitting at the side of the bed stay no abdominal or flank discomfort when sitting up the HIDA scan was reviewed with him At this point we will continue nonoperative management of chronic cholecystitis and cholelithiasis Admission and Anticipated Discharge Date Admission Date: November 26, 2020 Subjective Initially saw the patient in approximately 730 this morning where is resting in bed still complaining some right upper quadrant pain He denies any nausea a HIDA scan was ordered but still not completed Physical Exam Physical Exam: The abdominal exam this morning in the supine position the abdomen is soft he has some guarding in the right flank area not subcostally Results & Data ([facility]) Vital Signs (Past 12 Hours) Vital Signs Temp Pulse Pulse Resp BP Pulse Ox 11/27/20 14:50 37.1 C 117 H 18 130/66 88 L 11/27/20 14:29 114 H 11/27/20 11:30 37.0 C 18 115/84 92 11/27/20 07:10 83 11/27/20 07:04 37.2 C 87 20 131/78 90 The HIDA scan result was reviewed no findings showed cystic duct obstruction PG Care Time/CCT Total # of Minutes Spent Total Time Spent with Patient: Total time spent is greater than 50% in coordination of care (as documented) at patient's floor/unit and/or counseling patient: Coding Level of Care Code 83862 Subseq Hosp Care Lvl 2 Diagnoses Biliary colic K80.50
[2020-11-27] MEDS: amLODIPine BESYLATE 5 MG TAB PO SCH (20:32)
[2020-11-27] MEDS: CLOPIDOGREL BISULFATE 75 MG TAB PO SCH (20:32)
[2020-11-27] MEDS: PRAVASTATIN SOD 40 MG TAB PO SCH (20:34)
[2020-11-27] MEDS: traZODone HCL 50 MG TAB PO SCH (20:35)
[2020-11-27 21:31] LABS: Appearance Urine Cloudy (Clear); Bacteria Urine Automated Negative (Negative); Bilirubin Urine Negative (Negative); Blood Urine Negative (Negative); Color Urine Yellow; Epithelial Cell Urine Auto 0-5 /lpf (0-5); Glucose Urine UA Negative (Negative); Ketones Urine Trace (Negative); Leukocyte Esterase Urine 2+ (Negative); Nitrite Urine Positive (Negative); Protein Urine 1+ (Negative); RBC Urine Automated 0-4 /hpf (0-4); Urobilinogen Urine Negative (Negative); WBC Urine Automated >30 /hpf (0-5)
[2020-11-28] MEDS: oxyCODONE HCL IR 5 MG TAB (IMMEDIATE RELEASE) PO PRN (00:28)
[2020-11-28 06:23] LABS: Basophils # (auto) 0.03 K/uL (0-0.2); Basophils % (auto) 0.4 %; Eosinophils # (auto) 0.15 K/uL (0-0.5); Hematocrit (blood only) 46.1 % (42-52); Immature Granulocytes # (auto) 0.01 K/uL (0.00-0.02); Immature Granulocytes % (auto) 0.1 %; Lymphocytes % (auto) 18.3 %; Mean Corpuscular Hemoglobin 31.6 pg (25-34); Mean Corpuscular Hgb Conc 32.5 g/dL (32-36); Mean Corpuscular Volume 97.3 fL (80-100); Mean Platelet Volume 9.4 fL (7.4-10.4); Monocytes # (auto) 1.46 K/uL (0.11-0.59); Monocytes % (auto) 19.1 %; Neutrophils # (auto) 4.59 K/uL (1.4-6.5); Neutrophils % (auto) 60.1 %; Platelet Count 173 K/uL (130-400); RDW Coefficient of Variation 13.4 % (11.5-14.5); Red Blood Count 4.74 M/uL (4.7-6.1); White Blood Count 7.64 K/uL (4.8-10.8)
[2020-11-28 07:00] LABS: Albumin Globulin Ratio 0.8 (0.9-2); Albumin Level 2.8 gm/dl (3.4-5.0); BUN Creatinine Ratio 17.1 (10-20); Bilirubin,Total 0.3 mg/dl (0.2-1); Calcium 9.2 mg/dl (8.5-10.1); Creatinine Clr Calc Pharmacy 57.1 ml/min; Est GFR (African American) 59.3 ml/min; Est GFR (Non-African American) 51.2 ml/min; Globulin 3.5 gm/dl (2.5-4.0); Potassium 4.3 mmol/L (3.5-5.1); Total Protein 6.3 gm/dl (6.4-8.2)
[2020-11-28] MEDS: SENNA 8.6 MG TAB PO SCH ×2 (09:01→09:26)
[2020-11-28] MEDS: MULTIVITAMIN TAB PO SCH (09:02)
[2020-11-28] MEDS: METOPROLOL TARTRATE 50 MG TAB PO SCH (09:02)
[2020-11-28] MEDS: hydrALAZINE HCL 25 MG TAB PO SCH ×2 (09:03→14:20)
[2020-11-28] MEDS: FINASTERIDE 5 MG TAB PO SCH (09:03)
[2020-11-28] MEDS: LOSARTAN POTASSIUM 25 MG TAB PO SCH (09:03)
[2020-11-28] MEDS: allopurinoL 100 MG TAB PO SCH (09:04)
[2020-11-28] MEDS: FAMOTIDINE 20 MG TAB PO SCH (09:04)
[2020-11-28] MEDS: DOCUSATE SODIUM 100 MG CAP PO SCH ×2 (09:04→09:25)
[2020-11-28] MEDS: DICLOFENAC SOD 1% GEL 100 GM TUBE EXT SCH ×2 (09:06→14:21)
[2020-11-28] MEDS: UMECLIDINIUM/VILANTEROL 62.5/25MCG 7 PUFFS/INHALER INH SCH (09:23)
--- NOTE | 2020-11-28 09:28 | Surgery Progress Note ---
Date of Service November 28, 2020 Assessment & Plan (1) Abdominal pain: Plan: Patient denies any abdominal pain this AM WBC 7, LFT's WNL. afebrile HIDA scan yesterday was negative Tolerating clears, will trial advancing diet further today Admission and Anticipated Discharge Date Admission Date: November 26, 2020 Subjective Patient seen sitting up in chair. He says he feels well this AM. Denies further belly pain. No nausea/vomiting. Having + bowel function. Physical Exam Physical Exam: awake, sitting up in chair Constitutional: no acute distress Gastrointestinal (Abdomen): Percussion/Palpation: abdomen soft; abdomen nontender Results & Data ([facility]) Vital Signs (Past 12 Hours) Vital Signs Temp Pulse Pulse Resp BP Pulse Ox 11/28/20 07:50 36.7 C 84 20 146/67 H 91 11/28/20 07:37 80 11/28/20 04:41 36.7 C 80 20 129/78 91 11/28/20 00:20 77 11/27/20 23:22 37.2 C 79 20 124/79 92 PG Care Time/CCT Total # of Minutes Spent Total Time Spent with Patient: Total time spent is greater than 50% in coordination of care (as documented) at patient's floor/unit and/or counseling patient: Coding Level of Care Code 80236 Subseq Hosp Care Lvl 1 Diagnoses Abdominal pain R10.11 Abdominal location: right upper quadrant (1) Abdominal pain Abdominal location: right upper quadrant Qualified Code(s): R10.11 - Right upper quadrant pain
[2020-11-28] MEDS ORDERED: DOCUSATE SODIUM 100 MG CAP PO PRN (09:51)
[2020-11-28] MEDS ORDERED: SENNA 8.6 MG TAB PO PRN (09:52)
--- NOTE | 2020-11-28 12:49 | Discharge Summary ---
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 is at bedside and provides majority of history. Pain started last Thursday whenever she tried to lay him in bed. He developed severe right-sided middle abdominal discomfort. Pain was made worse by lying flat and rolling on the right side. It was improved by sitting and standing. She got him up to try to improve pain and when laid back down pain continued. He also admits to pain being made worse with food. He has been on a clear liquid diet for the past 5 days and pain is persistent. Pain does come and go, currently is absent secondary to analgesia. Describes the pain as sharp. He was seen and evaluated in ED on 11/[address] abdomen pelvis as well as right upper quadrant ultrasound. Did reveal cholelithiasis, hepatic steatosis but no acute abnormality. Lab work was otherwise unremarkable. He was seen and evaluated by general surgery Dr. Sorensen today who recommended further evaluation at ED secondary to persistent abdominal pain despite normal initial evaluation. He states his last bowel movement was 3 days ago. Typically he moves his bowels daily, but has not been eating or drinking. He denies any fever, chills, sweats, lightheadedness, dizziness, chest pain shortness of breath, nausea, vomiting, dysuria, increased urgency or frequency with urination. He does have chronic shortness of breath secondary to COPD as well as cough. This is unchanged. He has been compliant with medications as manages this. In ED patient remained hemodynamically stable and mildly hypertensive. His CBC and CMP was generally unremarkable. His creatinine was at baseline at 1.48. SARS-CoV-2 is negative. Abdominal ultrasound revealed cholelithiasis and mild gallbladder distention but no convincing evidence of acute cholecystitis. Chest x-ray was negative for acute pathology. He did receive IV morphine and IV Zofran with improvement of symptoms. He was recommended for admission for further evaluation and surgical consultation. Admission Exam Per Admitting Provider Constitutional: Morbidly obese, chronically ill male, lying in bed, WD/WN, vitals as above, NAD, mild dysarthria, answers questions appropriately Head: Normocephalic, Atraumatic Eyes: PERRL, conjunctivae normal, anicteric sclerae, tearing of right eye ENMT: external ear and nose normal, oropharynx normal Neck: trachea midline, no thyromegaly normal visual inspection Respiratory: normal respiratory effort, lungs clear to auscultation, no wheeze, rales, rhonchi. Normal insp/exp effort, no accessory muscle use Cardiovascular: Distant heart sounds secondary to body habitus, RRR, no murmur, no edema chronic venous stasis changes vessels: no JVD or carotid bruit Chest: normal inspection of chest Abdomen: Distended and protuberant abdomen, firm, tender to palpation in right mid lower quadrant,no rebound, no guarding or rigidity, normal bowel sounds Musculoskeletal: no cyanosis or clubbing, active range of motion x4 with generalized weakness Skin: no rashes, warm and dry normal turgor Neurologic: PERRL, EOMI, accommodation nl, no face palsy, no dysarthria CN's II-XI intact bilaterally and moves all extremities Psychiatric: A+Ox3 to basics only, euthymic affect Lymphatic: no cervical or axillary lymphadenopathy : deferred Principal Diagnosis (1) Abdominal pain: (2) Chronic respiratory failure: (3) COPD (chronic obstructive pulmonary disease): (4) CAMILO (obstructive sleep apnea): (5) Hypertension: (6) Coronary artery disease: (7) Cerebrovascular disease: (8) CKD (chronic kidney disease), stage III: (9) Solitary kidney: Discharge Exam ROS-No Headache, No Visual Changes, No Nausea, No Vomiting, No Fever, No Chills, No Neck Pain or Stiffness, No Chest Pain, No Palpitations, No SOB, No MOLINA, No Cough, No Sputum, No Wheezing, No Abdominal Pain, No Diarrhea, No Hematemesis, No Hemoptysis, No Unexpected Weight Loss, No Flank pain, No Melena, No Hematochezia, No Frequency, No Urgency, No Burning, No Hematuria, No Rashes, No Diaphoresis. Appetite is Normal Physical Exam Gen-AAO x 3, NAD, Afebrile Head-NCAT, EOMI, PERRLA, Anicteric Sclera, No Posterior Pharyngeal Erythema Neck-Supple, No JVD, No Thyromegaly, No Masses, No LAD, No Bruits Lungs-Clear to Auscultation Bilaterally, No Rales, No Rhonchi, No Wheezing, No Crepitus Chest-No S4, +S1, +S2, No S3, No Murmurs, No Rubs, No Gallops, No Ectopy Abdomen-Soft, Bowel Sounds Present, Non Tender, Non Distended, No Hepatomegaly, No Splenomegaly, No Palpable Masses, No Rebound, No Rigidity, No Guarding Musculoskeletal-Full Range of Motion Bilaterally, No CVAT Extremities-No Cyanosis, No Clubbing, No Edema Nuero-Cranial Nerves II-XII grossly intact, Motor WNL, DTRs WNL, Strength WNL, Non Focal Psych-Normal Mood Discharge Data Allergies Allergy/AdvReac Type Severity Reaction Status Date / Time aspirin AdvReac Intermediate RELAXES Verified 11/26/20 11:11 RECTUM atorvastatin AdvReac Intermediate RELAXED Verified 11/26/20 11:11 RECTAL SPHINCTER Consultations 11/26/20 17:07 ED Decision to Admit Stat 11/26/20 19:27 Consult General Surgery Routine Ordered Studies 11/26/20 14:22 US abdomen limited Stat Current Diagnoses Obstructive sleep apnea (adult) (pediatric) (11/26/20) Essential (primary) hypertension (11/26/20) Atherosclerotic heart disease of [place] coronary artery without angina pectoris (11/26/20) Cerebrovascular disease, unspecified (11/26/20) Chronic obstructive pulmonary disease, unspecified (11/26/20) Chronic respiratory failure, unspecified whether with hypoxia or hypercapnia (11/26/20) Calculus of bile duct without cholangitis or cholecystitis without obstruction (11/26/20) Chronic kidney disease, stage 3 (moderate) (11/26/20) Renal agenesis, unilateral (11/26/20) Right upper quadrant pain (11/26/20) Encounter for prophylactic measures, unspecified (11/26/20) Allergies aspirin Adverse Reaction (Intermediate, Verified 11/26/20 11:11) RELAXES RECTUM atorvastatin Adverse Reaction (Intermediate, Verified 11/26/20 11:11) RELAXED RECTAL SPHINCTER Height/Weight/Isolation Height 5 ft 6 in Weight 111.3 kg Chemistry 11/26/20 11/26/20 11/27/20 14:28 16:55 07:24 Sodium 137 138 Potassium 4.6 5.1 Chloride 104 107 Carbon Dioxide 29 24 Anion Gap 4.0 7.0 BUN 23 H 25 H Creatinine 1.48 H 1.42 H Glucose 96 87 11/28/20 05:46 Sodium 137 Potassium 4.3 D Chloride 105 Carbon Dioxide 27 Anion Gap 5.0 BUN 23 H Creatinine 1.37 Glucose 106 H Urinalysis 11/27/20 Unknown Urine Color Yellow Urine Appearance Cloudy A Urine pH 5.0 Ur Specific [place] 1.020 Urine Protein 1+ H Urine Glucose (UA) Negative Urine Ketones Trace H Urine Blood Negative Urine Nitrite Positive A Urine Bilirubin Negative Microbiology 11/27/20 Unknown Urine,Clean Catch Urine Culture - Preliminary Gram negative bacilli 11/26/20 16:05 Blood Aerobic Blood Culture - Preliminary No growth in Aerobic bottle after 24 hours. 11/26/20 16:05 Blood Anaerobic Blood Culture - Final 11/26/20 15:20 Blood Aerobic Blood Culture - Preliminary No growth in Aerobic bottle after 24 hours. 11/26/20 15:20 Blood Anaerobic Blood Culture - Preliminary No growth in Anaerobic bottle after 24 hours. 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 Seen and evaluated by Gen surgery, Dr. Sorensen, who referred back to ED for further evaluation of abdominal pain CT scan of the abdomen did not show any significant finding except hepatic steatosis and cholelithiasis without any evidence of cholecystitis HIDA scan has been negative Appreciate surgery input and recommendation Questionable herniation of fatty tissue and the pain seems to be improving with local NSAIDs gel Constipation may be contributing Medications have been given for that (2) Chronic respiratory failure: (3) COPD (chronic obstructive pulmonary disease): (4) CAMILO (obstructive sleep apnea): Chronic respiratory failure in setting of COPD and prior tobacco abuse Hypoxic in triage secondary to patient not being on home O2 3 to 4 L at baseline Continue Stiolto, as needed ipratropium Follows [facility]m Noncompliant with CPAP (5) Hypertension: BP mildly elevated, likely in setting of pain Continue amlodipine, losartan and hydralazine (6) Coronary artery disease: s/p CABG, Last echo 2015 revealed preserved EF, diastolic dysfunction Continue metoprolol, losartan, pravastatin, Plavix, hydralazine Significant vascular disease Remains stable (7) Cerebrovascular disease: History of ischemic CVAs as well as history of parenchymal hemorrhage perioperatively during carotid surgery Has residual aphasia and RHP At baseline Continue Plavix, pravastatin and blood pressure management (8) CKD (chronic kidney disease), stage III: Baseline creatinine 1.4-1.6 BUN/creatinine at baseline, monitor and avoid nephrotoxic agents (9) Solitary kidney: History of atrophic left kidney secondary to HTN, status post left nephrectomy CKD stage III Monitor renal function avoid nephrotoxic agents (10) DVT prophylaxis: SCD/TEDS for now 2/2 to hx of IPH in past monitor daily need for chemical prophylaxis Dispo: med tele PCP: ANY FULL CODE DC Home today Total Time Total Time Spent Total Time Spent (In Minutes): 45 mins Total Time Includes: Examination of the Patient, Discharge Planning, Medication Reconciliation, Communication With Other Providers and Other Discharge Plan Discharge Items Patient Disposition: Home - Self-Care Reason For Visit: ABDOMINAL PAIN Discharge Diagnosis: (1) Abdominal pain: (2) Chronic respiratory failure: (3) COPD (chronic obstructive pulmonary disease): (4) CAMILO (obstructive sleep apnea): (5) Hypertension: (6) Coronary artery disease: (7) Cerebrovascular disease: (8) CKD (chronic kidney disease), stage III: (9) Solitary kidney: Condition on Discharge: Good Health Concerns: Non-Compliance with BIPAP and Oxygen Activity: Resume your previous activity Lifting: Gradually increase as tolerated Bathing: No limitations Sexual Activity: When tolerated Exercise/Sports: Gradually increase as tolerated Driving/Machine Use: No limitations Weightbearing: Full weightbearing Non-emergency contact: Primary Care Provider Call non-emergency contact if: you have any medication questions Follow-up/Referrals: Gina Jeter C.R.N.P. [Primary Care Provider] - (Date & Time 12/03/2020 1:40 PM Provider Kai Jacobsen DO Department [facility] ) Diet: Heart Healthy Addtl Attending Provider Instructions: None Pending Studies at Discharge: No Stand-Alone Forms: My [facility], Smoking Cessation Medications and DC Order Prescriptions: Continued finasteride [Proscar] 5 mg tablet 5 mg PO DAILY Qty: 90 RF: 3 ipratropium-albuterol 0.5 mg-3 mg(2.5 mg base)/3 mL solution for nebulization 3 ml inhalation Q4H PRN (Reason: COPD) Qty: 180 RF: 5 Stiolto Respimat 2.5-2.5 mcg/actuation mist 2 puff inhalation DAILY Qty: 4 RF: 5 losartan 25 mg tablet 25 mg PO DAILY Qty: 90 RF: 3 trazodone 50 mg tablet 50 mg PO HS RF: 0 pravastatin 40 mg tablet 40 mg PO QPM RF: 0 clopidogrel 75 mg tablet 75 mg PO QPM RF: 0 allopurinol 100 mg tablet 100 mg PO QAM RF: 0 famotidine 20 mg tablet 20 mg PO BID RF: 0 metoprolol tartrate 50 mg tablet 50 mg PO BID RF: 0 amlodipine [Norvasc] 10 mg tablet 10 mg PO QPM RF: 0 multivitamin with minerals [Hair,Skin and Nails] Tablet 1 tab PO DAILY RF: 0 hydralazine 25 mg Tablet 25 mg PO TID RF: 0 fluticasone propion-salmeterol 113-14 mcg/actuation aerosol powdr breath activated 1 inh INHALATION UD RF: 0 oxycodone 5 mg tablet 5 mg PO Q6H PRN (Reason: pain) Qty: 14 RF: 0 sennosides [Senokot] 8.6 mg tablet 8.6 mg PO HS Qty: 30 RF: 0 docusate sodium [Colace] 100 mg capsule 100 mg PO BID Qty: 60 RF: 0 Discharge Orders: Discharge Order (Routine); Ordered 11/28/20 Ordered By: Shane Kirkpatrick Admission Data Admit Date/Time: 11/26/20 17:13 Attending Provider: Shane Kirkpatrick Admit Provider: Nirmal Coelho Primary Care Provider: Gina Jeter Other Providers: Nirmal Coelho ; Hal Jeffers ; [facility]
[2020-11-28] MEDS: ACETAMINOPHEN 325 MG TAB PO PRN (13:23)
== END 2020-11-28 17:40 | disposition home or self-care (01) ==
LOC: ED 11:58 → 2W 11:58 → SUATTDRO 17:13 → 2W 19:13

== ENCOUNTER 2021-09-10 05:47 | Inpatient (IN) ==
[2021-09-10] MEDS ORDERED: ALBUT/IPRATROP 3MG/0.5MG NEB 3 ML VIAL NEB STA ×2 (06:41→09:31)
--- NOTE | 2021-09-10 06:41 | XRay Report ---
XR chest 1V portable CLINICAL HISTORY: Dyspnea. COMPARISON STUDY: Chest radiograph July 22, 2021. Chest CT August 15, 2021. FINDINGS: There is no pneumothorax or pleural effusion. Emphysema is noted. There are median sternoto my wires and mediastinal surgical clips. Cardiomediastinal silhouette is stable. Perihilar and right basilar airspace opacity is noted. This likely corresponds to the opacity shown to CT of August 15. Hazy left basilar opacity is likely due to epicardial fat pad. There is no evidence for pulmonary edema. IMPRESSION: 1. Persistent right perihilar and right basilar opacity which likely corresponds to finding on chest CT of August 15, 2021. Although this may reflect pneumonia, a mass cannot be excluded. A chest CT is r ecommended for further evaluation. 2. Emphysema. ACT 112: Negative or not required by law. Electronically signed by: Mario Baker M.D. 09/10/2021 6:38 AM
[2021-09-10] MEDS ORDERED: methylPREDNISolone 125 MG/2 ML VIAL IV STA (06:42)
--- NOTE | 2021-09-10 06:44 | Emergency Department Note ---
Impression & Plan COPD (chronic obstructive pulmonary disease), Hypoxia ADMIT ED Provider Note HPI: The patient is a 71-year-old gentleman with history of COPD, on 4 L nasal cannula oxygen at baseline, history of CVA, morbid obesity, chronic kidney disease, presents emergency department the chief complaint of worsening shortness of breath throughout the night. Patient's at the bedside serves as the primary historian, states the patient developed some increased work of breathing overnight. On arrival here to the ED the patient is on nonrebreather mask saturating at 91% with some mild increased work of breathing. He is alert on arrival, he denies any chest pain. He is otherwise hemodynamically stable on my initial assessment. ROS: -Pulmonary: Increased work of breathing *10 point review systems was conducted and is otherwise negative unless stated above *Outpatient medications and allergy history reviewed PE: General: Morbidly obese, alert HEENT: Normocephalic, atraumatic Eyes: Extraocular eye movement is intact, no scleral erythema Pulmonary: Diminished air movement bilaterally without crackles or wheezing Cardio: Regular rate and rhythm GI: Abdomen is soft, nontender : No suprapubic tenderness MSK: No evidence of trauma or malformation of the extremities, no edema Skin: Excoriation underneath the pannus in the midline with small ulceration with minimal active bleeding, no purulent drainage, no crepitus to palpation Neuro: Alert, no focal deficits Psychiatric: Cooperative monitoring and evaluation advisor: - An order was placed for continuous cardiac monitoring - Patient was noted to be in sinus rhythm with rate of 90 EKG: Rate: 99 Rhythm: Normal sinus rhythm Intervals: Within normal limits ST changes: No ST elevation Time: 0603 Medical Decision Making: The patient is a 71-year-old gentleman with history of chronic respiratory failure, on 4 L baseline nasal cannula oxygen, presents the emergency department with increased work of breathing overnight. On arrival here to the ED the patient has borderline oxygen saturations on 15 L nonrebreather mask. He was switched to BiPAP shortly after arrival with good improvement to 97%. IV was e stablished, lab work obtained, patient was placed on the potline monitor. Patient was given multiple DuoNeb breathing treatments after arrival to the ED, he was given IV Solu-Medrol over concern for COPD exacerbation with diminished air movement bilaterally on exam. Patient is otherwise alert on arrival, lab work shows evidence of a leukocytosis of 17.54, cultures were drawn in the ED, creatinine elevated at 1.59, initial troponin is slightly elevated at 23, patient denies any chest pain. Lactic acid is within normal limits, will hold on IV fluids over concern for possible fluid overload and stable blood pressure. X-ray shows questionable pneumonia versus mass therefore CT angiography of the chest was obtained that shows bibasilar pneumonia, no evidence of pulmonary embolism. Given the patient's leukocytosis in addition to the finding of pneumonia he was treated with cefepime, azithr omycin, and Flagyl for suspected aspiration element. Patient did transiently have some hypoxia on BiPAP to 85% although he remained alert and was conversational during this episode, suspect he may have some apneic episodes on BiPAP causing this, his PEEP was increased to 10, BiPAP settings increased to 18/8 and 100% FiO2 with good improvement in his oxygenation to 97%. His arterial blood gas shows improvement in hypercarbic respiratory failure, pH is now 7.362, PCO2 is 45.4. Patient does appear improved on my reassessment, he will remain on positive pressure ventilation on BiPAP for admission. Case was discussed with the on- call admitting provider for [facility], and the patient was admitted in stable condition for further management. Care time: 55 minutes -Stabilization of hypoxia with oxygen saturations less than 90% on nasal cannula oxygen requiring positive pressure ventilation for improvement, time spent at the bedside, interpretation of diagnostic studies, discussion with other healthcare providers and arrangement of admission Diagnosis: 1. COPD exacerbation with hypoxia 2. Bibasilar pneumonia with hypoxic respiratory failure 3. Leukocytosis 4. Creatinine elevation 5. Elevated high-sensitivity troponin level Disposition: Admission Juan Moore DO Emergency Medicine Past Med/Surg History Medical History (Updated 09/10/21 @ 09:09 by Juan Moore DO) Abnormal CT scan, chest Abnormal EKG BPH (benign prostatic hyperplasia) BPH with obstruction/lower urinary tract symptoms Cerebrovascular disease s/p multiple ischemic strokes Cholelithiasis Chronic kidney disease, stage 3a CKD (chronic kidney disease), stage III COPD (chronic obstructive pulmonary disease) Coronary artery disease s/p CABG Dyslipidemia Gout Hearing deficit History of bronchitis History of intracranial hemorrhage parenchymal hemorrhage perioperatively during / after carotid surgery Hypertension On anticoagulant therapy plavix daily On home oxygen therapy 2L N/C prn/HS Peripheral vascular disease Pulmonary nodule CXR [facility] 07/03/18: 1.3 cm right midlung nodule, slightly enlarged compared to 04/18/15. F/U with CT recommended. Sepsis hx of Solitary kidney atrophic left kidney, nephrectomy performed for hypertension Stroke x5---per has aphasia, right arm weakness/loss of peripheral vision Urinary retention UTI (urinary tract infection) due to Enterococcus Vitamin D deficiency Surgical History History of bronchoscopy x2 History of cardiac cath x2----no stents History of colonoscopy History of tooth extraction all upper teeth Status post abdominal aortic aneurysm (AAA) repair 1998 @ [facility] Status post carotid endarterectomy 09/30/2013--left @ [facility] Status post coronary artery bypass graft 1998 @ [facility] Status post nephrectomy left atrophic, nonfunctional associated with hypertension Status post transurethral resection of prostate Family History Sister Family history of diabetes mellitus Diabetes Brother Family history of diabetes mellitus Diabetes Heart disease Hypertension Other No family history of adverse response to anesthesia Social History Smoking Status: Former smoker Tobacco Type: Cigarettes Cigarettes Per Day: 20-40; Second Hand Exposure: No; Hx Alcohol Use: Yes Alcohol type: beer Hx Substance Use: No Preferred Language: Bahraini Communication Ability: Effective Visual Impairment: No Limitations Hearing Ability: Normal Flight Surgeon Required: No Beliefs That Will Affect Care: None marital status: Current Living Situation: Spouse Current Living Situation Comment: with and sister current occupational status: retired Feels Safe at Home: Yes Assistive Devices: Walker Allergies Allergies Allergy/AdvReac Type Severity Reaction Status Date / Time aspirin AdvReac Intermediate RELAXES Verified 09/10/21 07:38 RECTUM atorvastatin AdvReac Intermediate RELAXED Verified 09/10/21 07:38 RECTAL SPHINCTER Home Meds Home Medications Medication Instructions Recorded Confirmed allopurinol 100 mg tablet 100 mg PO QAM 07/13/18 09/10/21 clopidogrel 75 mg tablet 75 mg PO HS 07/13/18 09/10/21 famotidine 20 mg tablet 20 mg PO BID 07/13/18 09/10/21 metoprolol tartrate 50 mg tablet 50 mg PO BID 07/13/18 09/10/21 pravastatin 40 mg tablet 40 mg PO HS 07/13/18 09/10/21 trazodone 50 mg tablet 50 mg PO HS 07/13/18 09/10/21 amlodipine 10 mg tablet (Norvasc) 10 mg PO HS 10/13/18 09/10/21 multivitamin with minerals 1 tab PO QAM 11/15/19 09/10/21 (Hair,Skin and Nails) fluticasone 113 mcg-salmeterol 14 1 inh INHALATION BID 11/22/20 08/19/21 mcg/actuation breath activated powdr hydralazine 25 mg tablet 25 mg PO TID 11/26/20 09/10/21 ezetimibe 10 mg tablet (Zetia) 10 mg PO HS 09/10/21 09/10/21 finasteride 5 mg tablet (Proscar) 5 mg PO HS 09/10/21 09/10/21 losartan 25 mg tablet 25 mg PO QAM 09/10/21 09/10/21 magnesium 250 mg tablet 0 mg PO QAM 09/10/21 09/10/21 multivitamin with iron-mineral 1 tab PO DAILY 09/10/21 09/10/21 ondansetron 4 mg disintegrating 4 mg PO TID PRN 09/10/21 09/10/21 tablet tiotropium bromide 18 mcg capsule 1 cap INHALATION QA 09/10/21 09/10/21 with inhalation device (Spiriva with HandiHaler) Previous Rx's Medication Instructions Recorded ipratropium 0.5 mg-albuterol 3 mg 3 ml INHALATION Q4H PRN #180 ml 08/14/20 (2.5 mg base)/3 mL nebulization soln docusate sodium 100 mg capsule 100 mg PO BID #60 cap 11/22/20 (Colace) Flutter Valve #1 ea 08/19/21 Results & Data (ED) Vital Signs Vital Signs - 24 hr 09/10/21 05:50 09/10/21 06:10 09/10/21 06:26 Temperature 36.7 C Temperature Source Temporal Artery Scan Pulse Rate 102 H 92 H Pulse Rate [Finger] Respiratory Rate 24 27 H Respiratory Effort / Characteristics Spontaneous Grunting Labored Labored Respiratory Depth Deep Normal Respiratory Pattern Tachypnea Regular Blood Pressure 156/91 H Blood Pressure [Right Arm] Blood Pressure Mean 112 Blood Pressure Mean [Right Arm] Blood Pressure Position [Right Arm] Pulse Oximetry 83 L 91 89 L Oxygen Delivery Method Nasal Cannula Non-rebreather Oxygen Flow Rate 4 15 Fraction of Inspired Oxygen 100 SaO2/FiO2 Ratio Sepsis New/Unexplained Change in Mental Status N/A Sepsis Action Taken by Nursing No Action Required 09/10/21 06:29 09/10/21 06:30 09/10/21 06:58 Temperature Temperature Source Pulse Rate 85 80 Pulse Rate [Finger] 85 81 Respiratory Rate 26 H 24 28 H Respiratory Effort / Characteristics Non-Labored Spontaneous Spontaneous Respiratory Depth Normal Respiratory Pattern Blood Pressure Blood Pressure [Right Arm] 145/74 H Blood Pressure Mean Blood Pressure Mean [Right Arm] 97 Blood Pressure Position [Right Arm] Sitting Pulse Oximetry 89 L 94 91 Oxygen Delivery Method Non-rebreather BiPAP BiPAP Oxygen Flow Rate 15 Fraction of Inspired Oxygen 100 SaO2/FiO2 Ratio Sepsis New/Unexplained Change in Mental Status Sepsis Action Taken by Nursing 09/10/21 07:00 09/10/21 07:09 09/10/21 08:38 Temperature Temperature Source Pulse Rate Pulse Rate [Finger] 82 78 Respiratory Rate 18 28 H Respiratory Effort / Characteristics Respiratory Depth Respiratory Pattern Blood Pressure Blood Pressure [Right Arm] 144/73 H 141/63 H Blood Pressure Mean Blood Pressure Mean [Right Arm] 96 89 Blood Pressure Position [Right Arm] Pulse Oximetry 100 94 Oxygen Delivery Method BiPAP BiPAP BiPAP Oxygen Flow Rate Fraction of Inspired Oxygen 100 70 SaO2/FiO2 Ratio 100 134 Sepsis New/Unexplained Change in Mental Status Sepsis Action Taken by Nursing 09/10/21 09:34 09/10/21 09:46 Temperature Temperature Source Pulse Rate 83 Pulse Rate [Finger] 80 84 Respiratory Rate 24 24 Respiratory Effort / Characteristics Spontaneous Non-Labored Respiratory Depth Normal Normal Respiratory Pattern Regular Blood Pressure Blood Pressure [Right Arm] 133/75 Blood Pressure Mean Blood Pressure Mean [Right Arm] 94 Blood Pressure Position [Right Arm] Pulse Oximetry 97 97 Oxygen Delivery Method BiPAP Room Air Oxygen Flow Rate Fraction of Inspired Oxygen 100 SaO2/FiO2 Ratio Sepsis New/Unexplained Change in Mental Status Sepsis Action Taken by Nursing Laboratory Data Result diagrams: 09/10/21 06:51 09/10/21 06:20 Lab Results 09/10/21 09/10/21 09/10/21 Range/Units 06:20 06:20 06:20 WBC Cancelled RBC Cancelled Hgb Cancelled POC Hgb (14.0-18.0) g/dl Hct Cancelled POC Hct (42-52) % MCV Cancelled MCH Cancelled MCHC Cancelled RDW Std Deviation Cancelled RDW Coeff of Ketan Cancelled Plt Count Cancelled MPV Cancelled Immature Gran % (Auto) Cancelled Neut % (Auto) Cancelled Lymph % (Auto) Cancelled Campbell % (Auto) Cancelled Eos % (Auto) Cancelled Baso % (Auto) Cancelled Neut # (Auto) Cancelled Lymph # (Auto) Cancelled Campbell # (Auto) Cancelled Eos # (Auto) Cancelled Baso # (Auto) Cancelled Immature Gran # (Auto) Cancelled Absolute Nucleated RBC Cancelled Nucleated RBC % (auto) Cancelled Neutrophils % (Manual) Cancelled Band Neutrophils % Cancelled Lymphocytes % (Manual) Cancelled Prolymphocyte % Cancelled Reactive Lymphs % (Man) Cancelled Monocytes % (Manual) Cancelled Eosinophils % (Manual) Cancelled Basophils % (Manual) Cancelled Metamyelocytes % (Man) Cancelled Myelocytes % (Man) Cancelled Promyelocytes % (Man) Cancelled Blast Cells % (Manual) Cancelled Plasma Cell % (Manual) Cancelled Other Cells % Cancelled Nucleated RBC % Cancelled Neutrophils # (Manual) Cancelled Band Neutrophils # Cancelled Total Absolute Neuts Cancelled Lymphocytes # (Manual) Cancelled Prolymphocyte # Cancelled Reactive Lymphs # Cancelled Total Abs Lymphocytes Cancelled Monocytes # (Manual) Cancelled Eosinophils # (Manual) Cancelled Basophils # (Manual) Cancelled Metamyelocytes # (Man) Cancelled Myelocytes # (Manual) Cancelled Promyelocytes # (Man) Cancelled Blast Cells # (Man) Cancelled Plasma Cell # (Manual) Cancelled Other Cells # Cancelled Nucleated RBCs # (Man) Cancelled Hypersegmented Neuts Cancelled Hyposegmented Neuts Cancelled Hypogranular Neuts Cancelled Large Granular Lymphs Cancelled # Lrg Granular Lymphs Cancelled Hairy Cells Cancelled Smudge Cells Cancelled Toxic Granulation Cancelled Toxic Vacuolation Cancelled Dohle Bodies Cancelled Bill Rods Cancelled Platelet Estimate Cancelled Hypogranular Platelets Cancelled Clumped Platelets Cancelled Giant Platelets Cancelled Platelet Satelliting Cancelled RBC Morphology Cancelled Polychromasia Cancelled Hypochromasia Cancelled Poikilocytosis Cancelled Basophilic Stippling Cancelled Anisocytosis Cancelled Microcytosis Cancelled Macrocytosis Cancelled Spherocytes Cancelled Pappenheimer Bodies Cancelled Sickle Cells Cancelled Target Cells Cancelled Tear Drop Cells Cancelled Ovalocytes Cancelled Stomatocytes Cancelled [place] Bodies Cancelled Echinocytes Cancelled Acanthocytes (Spur) Cancelled Rouleaux Cancelled RBC Agglutinates Cancelled Schistocytes Cancelled RBC Morph Comment Cancelled Sezary Cell Cancelled PT 10.3 (9.0-12.0) Seconds INR 1.0 (0.9-1.1) APTT 21.4 (21.0-31.0) Seconds PTT Ratio 0.8 POC pH (7.35-7.45) POC pCO2 (35-46) mmHg POC pO2 (80-95) mmHg POC HCO3 (19-24) ren/L POC Total CO2 (24-31) mmol/L POC Base Excess (-9-1.8) ren/L VBG pH (7.36-7.41) VBG pCO2 (38-50) mmHg VBG pO2 mmHg VBG HCO3 mmol/L VBG O2 Saturation % VBG Base Excess mEq/L Barometric Pressure mm/Hg POC Sodium (135-144) mmol/L Sodium (136-145) mmol/L POC Potassium (3.3-5.0) mmol/L Potassium (3.5-5.1) mmol/L Chloride (98-107) mmol/L Carbon Dioxide (21-32) mmol/L Anion Gap (3-11) BUN (6-23) mg/dl Creatinine (0.6-1.4) mg/dl Est Cr Clr Drug Dosing Est GFR ( Amer) ml/min Est GFR (Non-Af Amer) ml/min BUN/Creatinine Ratio (10-20) Glucose (70-99(Fasting)) mg/dl Lactate (0.4-2.0) mmol/L Calcium (8.5-10.1) mg/dl Total Bilirubin (0.2-1.0) mg/dl AST (13-39) U/L ALT (7-52) U/L Alkaline Phosphatase (34-104) U/L Troponin I High Sens 23.3 H (0-20) pg/ml Total Protein (6.0-8.3) gm/dl Albumin (3.4-5.0) gm/dl Globulin (2.5-4.0) gm/dl Albumin/Globulin Ratio (0.9-2) SARS-CoV-2 (PCR) (Negative) Influenza Type A (PCR) (Neg) Influenza Type B (PCR) (Neg) RSV (RT-PCR) (Neg) 09/10/21 09/10/21 09/10/21 Range/Units 06:20 06:37 06:50 WBC RBC Hgb POC Hgb (14.0-18.0) g/dl Hct POC Hct (42-52) % MCV MCH MCHC RDW Std Deviation RDW Coeff of Ketan Plt Count MPV Immature Gran % (Auto) Neut % (Auto) Lymph % (Auto) Campbell % (Auto) Eos % (Auto) Baso % (Auto) Neut # (Auto) Lymph # (Auto) Campbell # (Auto) Eos # (Auto) Baso # (Auto) Immature Gran # (Auto) Absolute Nucleated RBC Nucleated RBC % (auto) Neutrophils % (Manual) Band Neutrophils % Lymphocytes % (Manual) Prolymphocyte % Reactive Lymphs % (Man) Monocytes % (Manual) Eosinophils % (Manual) Basophils % (Manual) Metamyelocytes % (Man) Myelocytes % (Man) Promyelocytes % (Man) Blast Cells % (Manual) Plasma Cell % (Manual) Other Cells % Nucleated RBC % Neutrophils # (Manual) Band Neutrophils # Total Absolute Neuts Lymphocytes # (Manual) Prolymphocyte # Reactive Lymphs # Total Abs Lymphocytes Monocytes # (Manual) Eosinophils # (Manual) Basophils # (Manual) Metamyelocytes # (Man) Myelocytes # (Manual) Promyelocytes # (Man) Blast Cells # (Man) Plasma Cell # (Manual) Other Cells # Nucleated RBCs # (Man) Hypersegmented Neuts Hyposegmented Neuts Hypogranular Neuts Large Granular Lymphs # Lrg Granular Lymphs Hairy Cells Smudge Cells Toxic Granulation Toxic Vacuolation Dohle Bodies Bill Rods Platelet Estimate Hypogranular Platelets Clumped Platelets Giant Platelets Platelet Satelliting RBC Morphology Polychromasia Hypochromasia Poikilocytosis Basophilic Stippling Anisocytosis Microcytosis Macrocytosis Spherocytes Pappenheimer Bodies Sickle Cells Target Cells Tear Drop Cells Ovalocytes Stomatocytes [place] Bodies Echinocytes Acanthocytes (Spur) Rouleaux RBC Agglutinates Schistocytes RBC Morph Comment Sezary Cell PT (9.0-12.0) Seconds INR (0.9-1.1) APTT (21.0-31.0) Seconds PTT Ratio POC pH (7.35-7.45) POC pCO2 (35-46) mmHg POC pO2 (80-95) mmHg POC HCO3 (19-24) ren/L POC Total CO2 (24-31) mmol/L POC Base Excess (-9-1.8) ren/L VBG pH 7.32 L (7.36-7.41) VBG pCO2 59 H (38-50) mmHg VBG pO2 32 mmHg VBG HCO3 30 mmol/L VBG O2 Saturation 60.1 % VBG Base Excess 1.6 mEq/L Barometric Pressure 732.8 mm/Hg POC Sodium (135-144) mmol/L Sodium 137 (136-145) mmol/L POC Potassium (3.3-5.0) mmol/L Potassium 4.8 (3.5-5.1) mmol/L Chloride 102 (98-107) mmol/L Carbon Dioxide 26 (21-32) mmol/L Anion Gap 9 (3-11) BUN 33 H (6-23) mg/dl Creatinine 1.59 H (0.6-1.4) mg/dl Est Cr Clr Drug Dosing Not Reportable Est GFR ( Amer) 49.2 ml/min Est GFR (Non-Af Amer) 42.4 ml/min BUN/Creatinine Ratio 20.8 H (10-20) Glucose 143 H (70-99(Fasting)) mg/dl Lactate (0.4-2.0) mmol/L Calcium 9.9 (8.5-10.1) mg/dl Total Bilirubin 0.5 (0.2-1.0) mg/dl AST 20 (13-39) U/L ALT 22 (7-52) U/L Alkaline Phosphatase 96 (34-104) U/L Troponin I High Sens (0-20) pg/ml Total Protein 7.4 (6.0-8.3) gm/dl Albumin 4.0 (3.4-5.0) gm/dl Globulin 3.4 (2.5-4.0) gm/dl Albumin/Globulin Ratio 1.2 (0.9-2) SARS-CoV-2 (PCR) NEGATIVE (Negative) Influenza Type A (PCR) Negative (Neg) Influenza Type B (PCR) Negative (Neg) RSV (RT-PCR) Negative (Neg) 09/10/21 09/10/21 09/10/21 Range/Units 06:51 08:06 09:07 WBC 17.54 H RBC 5.38 Hgb 16.7 POC Hgb 16.7 (14.0-18.0) g/dl Hct 52.9 H POC Hct 49 (42-52) % MCV 98.3 MCH 31.0 MCHC 31.6 L RDW Std Deviation 50.5 H RDW Coeff of Ketan 14.1 Plt Count 159 MPV 9.6 Immature Gran % (Auto) 0.3 Neut % (Auto) 80.7 Lymph % (Auto) 5.8 Campbell % (Auto) 12.9 Eos % (Auto) 0.2 Baso % (Auto) 0.1 Neut # (Auto) 14.17 H Lymph # (Auto) 1.01 L Campbell # (Auto) 2.26 H Eos # (Auto) 0.03 Baso # (Auto) 0.01 Immature Gran # (Auto) 0.06 H Absolute Nucleated RBC Nucleated RBC % (auto) Neutrophils % (Manual) Band Neutrophils % Lymphocytes % (Manual) Prolymphocyte % Reactive Lymphs % (Man) Monocytes % (Manual) Eosinophils % (Manual) Basophils % (Manual) Metamyelocytes % (Man) Myelocytes % (Man) Promyelocytes % (Man) Blast Cells % (Manual) Plasma Cell % (Manual) Other Cells % Nucleated RBC % Neutrophils # (Manual) Band Neutrophils # Total Absolute Neuts Lymphocytes # (Manual) Prolymphocyte # Reactive Lymphs # Total Abs Lymphocytes Monocytes # (Manual) Eosinophils # (Manual) Basophils # (Manual) Metamyelocytes # (Man) Myelocytes # (Manual) Promyelocytes # (Man) Blast Cells # (Man) Plasma Cell # (Manual) Other Cells # Nucleated RBCs # (Man) Hypersegmented Neuts Hyposegmented Neuts Hypogranular Neuts Large Granular Lymphs # Lrg Granular Lymphs Hairy Cells Smudge Cells Toxic Granulation Toxic Vacuolation Dohle Bodies Bill Rods Platelet Estimate Hypogranular Platelets Clumped Platelets Giant Platelets Platelet Satelliting RBC Morphology Polychromasia Hypochromasia Poikilocytosis Basophilic Stippling Anisocytosis Microcytosis Macrocytosis Spherocytes Pappenheimer Bodies Sickle Cells Target Cells Tear Drop Cells Ovalocytes Stomatocytes [place] Bodies Echinocytes Acanthocytes (Spur) Rouleaux RBC Agglutinates Schistocytes RBC Morph Comment Sezary Cell PT (9.0-12.0) Seconds INR (0.9-1.1) APTT (21.0-31.0) Seconds PTT Ratio POC pH 7.36 (7.35-7.45) POC pCO2 45 (35-46) mmHg POC pO2 51 L (80-95) mmHg POC HCO3 26 H (19-24) ren/L POC Total CO2 27 (24-31) mmol/L POC Base Excess 0.0 (-9-1.8) ren/L VBG pH (7.36-7.41) VBG pCO2 (38-50) mmHg VBG pO2 mmHg VBG HCO3 mmol/L VBG O2 Saturation % VBG Base Excess mEq/L Barometric Pressure mm/Hg POC Sodium 136 (135-144) mmol/L Sodium (136-145) mmol/L POC Potassium 5.2 H (3.3-5.0) mmol/L Potassium (3.5-5.1) mmol/L Chloride (98-107) mmol/L Carbon Dioxide (21-32) mmol/L Anion Gap (3-11) BUN (6-23) mg/dl Creatinine (0.6-1.4) mg/dl Est Cr Clr Drug Dosing Est GFR ( Amer) ml/min Est GFR (Non-Af Amer) ml/min BUN/Creatinine Ratio (10-20) Glucose (70-99(Fasting)) mg/dl Lactate 1.7 (0.4-2.0) mmol/L Calcium (8.5-10.1) mg/dl Total Bilirubin (0.2-1.0) mg/dl AST (13-39) U/L ALT (7-52) U/L Alkaline Phosphatase (34-104) U/L Troponin I High Sens (0-20) pg/ml Total Protein (6.0-8.3) gm/dl Albumin (3.4-5.0) gm/dl Globulin (2.5-4.0) gm/dl Albumin/Globulin Ratio (0.9-2) SARS-CoV-2 (PCR) (Negative) Influenza Type A (PCR) (Neg) Influenza Type B (PCR) (Neg) RSV (RT-PCR) (Neg) Administered Medications Discontinued Medications Albuterol (Albut/Ipratrop 3mg/0.5mg Neb 3 Ml Vial) 3 ml NEB NOW STA; Protocol Stop: 09/10/21 06:42 Last Admin: 09/10/21 06:58 Dose: 3 ml Documented by: [id number] Albuterol (Albut/Ipratrop 3mg/0.5mg Neb 3 Ml Vial) 3 ml NEB NOW STA; Protocol Stop: 09/10/21 09:32 Last Admin: 09/10/21 09:34 Dose: 3 ml Documented by: [id number] Cefepime HCl (Maxipime) 2,000 mg in 20 mls @ 5 mls/min IV NOW STA; Protocol Stop: 09/10/21 07:16 Last Admin: 09/10/21 07:21 Dose: 5 mls/min Documented by: [id number] Azithromycin 500 mg/ Dextrose 255 mls @ 127.5 mls/hr IV NOW STA Stop: 09/10/21 09:12 Last Admin: 09/10/21 08:34 Dose: 127.5 mls/hr Documented by: [id number] Ioversol (Optiray 320 125ml) 120 ml IV ONCE ONE Stop: 09/10/21 09:30 Last Admin: 09/10/21 09:29 Dose: 120 ml Documented by: [id number] Methylprednisolone (Methylprednisolone 125 Mg/2 Ml Vial) 125 mg IV NOW STA Stop: 09/10/21 06:43 Last Admin: 09/10/21 07:00 Dose: 125 mg Documented by: [id number] Imaging Data Radiologist's Impression: Chest X-Ray 09/10/21 06:03 XR chest 1V portable CLINICAL HISTORY: Dyspnea. COMPARISON STUDY: Chest radiograph July 22, 2021. Chest CT August 15, 2021. FINDINGS: There is no pneumothorax or pleural effusion. Emphysema is noted. There are median sternotomy wires and mediastinal surgical clips. Cardiomediastinal silhouette is stable. Perihilar and right basilar airspace opacity is noted. This likely corresponds to the opacity shown to CT of August 15, 2021. Hazy left basilar opacity is likely due to epicardial fat pad. There is no evidence for pulmonary edema. IMPRESSION: 1. Persistent right perihilar and right basilar opacity which likely corresponds to finding on chest CT of August 15, 2021. Although this may reflect pneumonia, a mass cannot be excluded. A chest CT is recommended for further evaluation. 2. Emphysema. ACT 112: Negative or not required by law. Electronically signed by: Mario Baker M.D. 09/10/2021 6:38 AM Chest CTA 09/10/21 07:09 CT angio chest PE protocol CLINICAL HISTORY: Hemoptysis. Difficulty breathing. History of COPD. COMPARISON STUDY: Portable chest from 09/10/[address] chest from 08/15/2021 CT DOSE: 850.34 mGy.cm TECHNIQUE: CT Angio of the chest was performed.followed by image post processing with coronal, and sagittal MIP reformats. Contrast Volume: Optiray 320, 120 ml FINDINGS: Vasculature: There is homogeneous perfusion of the pulmonary vasculature bilaterally. No intraluminal filling defects or evidence for pulmonary embolus is seen. Airway: The airway is clear. No endobronchial lesion is identified. Lungs: There are confluent alveolar opacities at both lung bases, right greater than left. No air bronchograms are seen. No definite focal mass is identified. Centrilobular emphysematous changes are present particularly involving the upper lobes bilaterally. No pulmonary nodules are identified. Pleura: There is no evidence for pleural effusion. There is no evidence for pneumothorax. Mediastinum: There is no evidence for pathologic adenopathy. Heart size is within normal limits status post previous cardiothoracic surgery. Coronary artery calcifications present. The thoracic aorta is within normal limits. Atherosclerotic calcification is present. There is no evidence for pericardial effusion. Upper abdomen:There is evidence for small sliding-type hiatal hernia. Osseous structures: There is no acute osseous pathology. Impression: 1. No CTA evidence for pulmonary embolus. 2. Confluent alveolar opacities at both lung bases, right greater than left with findings suspicious for bibasilar pneumonia. 3. Underlying COPD. 4. Previous cardiothoracic surgery and coronary artery calcification. ACT 112: Negative or not required by law. Electronically signed by: Adryan Lujan M.D. 09/10/2021 9:47 AM Discharge Plan Visit Data Chief Complaint: Shortness of Breath/Dyspnea Stated Complaint: VOMITING BLOOD,HAVING TROUBLE BREATHING ED Provider: Juan Moore Discharge Problem: COPD (chronic obstructive pulmonary disease), Hypoxia Forms Stand Alone Forms: My [facility] [employer] Prescriptions Prescriptions: No Action ipratropium-albuterol 0.5 mg-3 mg(2.5 mg base)/3 mL solution for nebulization 3 ml inhalation Q4H PRN (Reason: COPD) Qty: 180 RF: 5 (DME) Flutter Valve Device See Rx Instructions .ROUTE .MEDSUPPLY Qty: 1 RF: 0 trazodone 50 mg tablet 50 mg PO HS RF: 0 pravastatin 40 mg tablet 40 mg PO HS RF: 0 clopidogrel 75 mg tablet 75 mg PO HS RF: 0 allopurinol 100 mg tablet 100 mg PO QAM RF: 0 famotidine 20 mg tablet 20 mg PO BID RF: 0 metoprolol tartrate 50 mg tablet 50 mg PO BID RF: 0 amlodipine [Norvasc] 10 mg tablet 10 mg PO HS RF: 0 Hair,Skin and Nails Tablet 1 tab PO QAM RF: 0 hydralazine 25 mg Tablet 25 mg PO TID RF: 0 fluticasone propion-salmeterol 113-14 mcg/actuation aerosol powdr breath activated 1 inh INHALATION BID RF: 0 docusate sodium [Colace] 100 mg capsule 100 mg PO BID Qty: 60 RF: 0 magnesium 250 mg Tablet 0 mg PO QAM RF: 0 ondansetron 4 mg Tablet,Disintegrating 4 mg PO TID PRN (Reason: Nausea) RF: 0 Multivitamin-Minerals Tablet 1 tab PO DAILY RF: 0 ezetimibe [Zetia] 10 mg Tablet 10 mg PO HS RF: 0 Spiriva with HandiHaler 18 mcg Capsule, W/Inhalation Device 1 cap INHALATION QAM RF: 0 losartan 25 mg tablet 25 mg PO QAM RF: 0 finasteride [Proscar] 5 mg tablet 5 mg PO HS RF: 0 Referrals Referrals: Gina Jeter C.RHersonN.P. [Primary Care Provider] - Discharge Problem: COPD (chronic obstructive pulmonary disease) Qualifiers: COPD type: unspecified COPD Qualified Code(s): J44.9 - Chronic obstructive pulmonary disease, unspecified
[2021-09-10 06:47] LABS: Partial Thromboplastin Ratio 0.8; Partial Thromboplastin Time 21.4 Seconds (21.0-31.0); Prothrombin Time 10.3 Seconds (9.0-12.0)
[2021-09-10 06:49] LABS: Base Excess VBG 1.6 mEq/L; Oxygen Saturation VBG 60.1 %; pH VBG 7.32 (7.36-7.41)
[2021-09-10 07:02] LABS: Basophils # (auto) 0.01 K/uL (0-0.2); Basophils % (auto) 0.1 %; Eosinophils # (auto) 0.03 K/uL (0-0.5); Eosinophils % (auto) 0.2 %; Hematocrit (blood only) 52.9 % (42-52); Hemoglobin 16.7 g/dL (14.0-18.0); Immature Granulocytes # (auto) 0.06 K/uL (0.00-0.02); Immature Granulocytes % (auto) 0.3 %; Lymphocytes # (auto) 1.01 K/uL (1.2-3.4); Lymphocytes % (auto) 5.8 %; Mean Corpuscular Hgb Conc 31.6 g/dL (32-36); Mean Corpuscular Volume 98.3 fL (80-100); Mean Platelet Volume 9.6 fL (7.4-10.4); Monocytes # (auto) 2.26 K/uL (0.11-0.59); Monocytes % (auto) 12.9 %; Neutrophils # (auto) 14.17 K/uL (1.4-6.5); Neutrophils % (auto) 80.7 %; Platelet Count 159 K/uL (130-400); RDW Coefficient of Variation 14.1 % (11.5-14.5); RDW Standard Deviation 50.5 fL (36.4-46.3); Red Blood Count 5.38 M/uL (4.7-6.1); White Blood Count 17.54 K/uL (4.8-10.8)
[2021-09-10 07:05] LABS: Alanine Aminotransferase 22 U/L (7-52); Albumin Globulin Ratio 1.2 (0.9-2); Alkaline Phosphatase 96 U/L (34-104); Anion Gap 9 (3-11); Aspartate Aminotransferase 20 U/L (13-39); BUN Creatinine Ratio 20.8 (10-20); Bilirubin,Total 0.5 mg/dl (0.2-1.0); Blood Urea Nitrogen 33 mg/dl (6-23); Calcium 9.9 mg/dl (8.5-10.1); Carbon Dioxide 26 mmol/L (21-32); Chloride 102 mmol/L (98-107); Est GFR (African American) 49.2 ml/min; Est GFR (Non-African American) 42.4 ml/min; Globulin 3.4 gm/dl (2.5-4.0); Glucose 143 mg/dl (70-99(Fasting)); Potassium 4.8 mmol/L (3.5-5.1); Sodium 137 mmol/L (136-145); Total Protein 7.4 gm/dl (6.0-8.3)
[2021-09-10] MEDS ORDERED: AZITHROMYCIN 500 MG in DEXTROSE 5% 250 ML IV STA (07:13)
[2021-09-10] MEDS ORDERED: CEFEPIME 2,000 MG/20 ML VIAL IV STA (07:13)
[2021-09-10 07:47] LABS: Influenza A virus by PCR Negative (Neg); Influenza B virus by PCR Negative (Neg); RSV by PCR Negative (Neg); SARS CoV2 RNA(COVID-19) InHosp NEGATIVE (Negative)
[2021-09-10] MEDS ORDERED: OPTIRAY 320 125ml IV ONE (09:29)
--- NOTE | 2021-09-10 09:48 | CT Scan Report ---
CT angio chest PE protocol CLINICAL HISTORY: Hemoptysis. Difficulty breathing. History of COPD. COMPARISON STUDY: Portable chest from 09/10/[address] chest from 08/15/2021 CT DOSE: 850.34 mGy.cm TECHNIQUE: CT Angio of the chest was performed.followed by image post processing with coronal, and s agittal MIP reformats. Contrast Volume: Optiray 320, 120 ml FINDINGS: Vasculature: There is homogeneous perfusion of the pulmonary vasculature bilaterally. No intraluminal filling defects or evidence for pulmonary embolus is seen. Airway: The airway is clear. No endobronchial lesion is identified. Lungs: There are confluent alveolar opacities at both lung bases, right greater than left. No air bro nchograms are seen. No definite focal mass is identified. Centrilobular emphysematous changes are present particularly involving the upper lobes bilaterally. N o pulmonary nodules are identified. Pleura: There is no evidence for pleural effusion. There is no evidence for pneumothorax. Mediastinum: There is no evidence for pathologic adenopathy. Heart size is within normal limits statu s post previous cardiothoracic surgery. Coronary artery calcifications present. The thoracic aorta is within normal limits. Atherosclerotic calcification is present. There is no evidence for pericardial effusion. Upper abdomen:There is evidence for small sliding-type hiatal hernia. Osseous structures: There is no acute osseous pathology. Impression: 1. No CTA evidence for pulmonary embolus. 2. Confluent alveolar opacities at both lung bases, right greater than left with findings suspicious for bibasilar pneumonia. 3. Underlying COPD. 4. Previous cardiothoracic surgery and coronary artery calcification. ACT 112: Negative or not required by law. Electronically signed by: Adryan Lujan M.D. 09/10/2021 9:47 AM
[2021-09-10 09:54] LABS: iSTAT Arterial Blood Gas HCO3 26 meg/L (19-24); iSTAT Arterial Blood Gas pCO2 45 mmHg (35-46); iSTAT Arterial Blood Gas pH 7.36 (7.35-7.45); iSTAT Arterial Blood Gas pO2 51 mmHg (80-95); iSTAT Carbon Dioxide 27 mmol/L (24-31); iSTAT Hematocrit 49 % (42-52); iSTAT Hemoglobin 16.7 g/dl (14.0-18.0); iSTAT Potassium 5.2 mmol/L (3.3-5.0); iSTAT Sodium 136 mmol/L (135-144)
[2021-09-10] MEDS ORDERED: metroNIDAZOLE 500 MG/100 ML BAG IV ONE (10:00)
--- NOTE | 2021-09-10 10:07 | Electrocardiogram Report ---
Test Reason : Blood Pressure : / mmHG Vent. Rate : 099 BPM Atrial Rate : 099 BPM P-R Int : 152 ms QRS Dur : 082 ms QT Int : 326 ms P-R-T Axes : 044 058 -24 degrees QTc Int : 418 ms Poor data quality, interpretation may be adversely affected Normal sinus rhythm Low voltage QRS Nonspecific T wave abnormality Abnormal ECG When compared with ECG of 26-NOV-2020 15:50, No significant change was found Confirmed by Juan Yao ([id number]) on 09/10/2021 10:07:10 AM Referred By: REFERRED SELF Confirmed By:Juan Yao
[2021-09-10] MEDS ORDERED: PIPERACILL/TAZOBAC CONSULT ACTIVE PRN (10:56)
--- NOTE | 2021-09-10 12:13 | History & Physical Report ---
Date of Service September 10, 2021 Assessment & Plan (1) Acute on chronic respiratory failure with hypoxia: (2) COPD (chronic obstructive pulmonary disease): (3) Pneumonia: Plan: Admit to telemetry Patient presenting from home with reports of harsh cough, shortness of breath, and hemoptysis vs hematemesis History of oxygen dependent COPD, on 3-4L at baseline Patient seen by pulmonary as an outpatient on 08/19. Had a low-dose CT that showed new 6.7 cm irregular masslike consolidation and 5 mm left upper lobe/7 mm left lower lobe pulmonary nodules. Patient was treated with Augmentin for 7 days. Per pulmonary, patient may require navigational bronchoscopy if the infiltrates do not resolve. Upon presentation, patient was requiring 15L NRB -- subsequently placed on BiPap. Initial VBG - ph 7.32, pCO2 59; repeat ABG - ph 7.36,PCO2 45, PO2 51, HCO3 26 CTA chest negative for PE however shows confluent alveolar opacities at both lung bases, right greater than left with findings suspicious for bibasilar pneumonia WBC 17K, afebrile, normal HR and BP, lactate 1.7 Check procal and CRP sputum culture s/p azithromycin, cefepime, and Flagyl in the ED -- will continue with IV Zosyn and azithromycin. Check MRSA nasal swab and if positive, add Vanco Received IV solumedrol in the ED, no wheezing on exam currently, will hold on further IV steroids at this time pulmonary toilet with nebs, flutter valve, IS pulmonary consult, input appreciated regarding ?? hematemesis -- seems like this was more than likely hemoptysis however will monitor closely. hgb stable at 16.7. No other signs of GI bleeding. (4) Cerebrovascular disease: Plan: history of multiple CVAs, carotid artery interventions, remote hx of CABG continue plavix, statin, zetia (5) Hypertension: Plan: BP controlled, continue metoprolol, losartan, and amlodipine (6) Chronic kidney disease, stage 3a: Plan: baseline creat mid-high 1's creat 1.5 today monitor renal functions (7) DVT prophylaxis: Plan: SQ Lovenox History of Present Illness Chief Complaint: Cough, shortness of breath Primary Care Provider: Gina Jeter A 71-year-old male with PMH oxygen dependent COPD, history of multiple prior CVAs with right sided weakness, carotid artery disease s/p multiple i nterventions, HTN, CKD stage III, CAD, and other problems listed below who presents to the ED for evaluation of cough and shortness of breath. Patient seen by pulmonary as an outpatient on 08/19. Had a low-dose CT that showed new 6.7 cm irregular masslike consolidation and 5 mm left upper lobe/7 mm left lower lobe pulmonary nodules. Patient was treated with Augmentin for 7 days. Per pulmonary, patient may require navigational bronchoscopy if the infiltrates do not resolve. Patient is a somewhat poor historian due to underlying vascular dementia, history is obtained from who is the bedside. She states that there was improvement in patient's cough and sputum production since completing the Augmentin course. Around 3 AM, patient woke up with a severe coughing episode that was productive for a large amount of phlegm. Shortly after, patient then began " vomiting bright red blood" -- and patient are unsure if this was hemoptysis versus hematemesis. Patient denies abdominal pain, nausea, dark tarry stools or bright red bleeding per rectum. No chest pain. Denies lightheadedness, dizziness, diaphoresis, syncopal events. No fevers or chills. Denies urinary symptoms. Upon arrival to the ED, patient was requiring 15 L NRB, subsequently placed on BiPAP. CTA negative for PE, however does show confluent alveolar opacities at both lung bases, right greater than left with fi ndings suspicious for bibasilar pneumonia. Patient was given neb treatment, IV azithromycin, IV solumedrol, IV metronidazole, IV cefepime. Allergies Allergy/AdvReac Type Severity Reaction Status Date / Time aspirin AdvReac Intermediate RELAXES Verified 09/10/21 07:38 RECTUM atorvastatin AdvReac Intermediate RELAXED Verified 09/10/21 07:38 RECTAL SPHINCTER Home Medications Medication Instructions Recorded Confirmed Type allopurinol 100 mg tablet 100 mg PO QAM 07/13/18 09/10/21 History clopidogrel 75 mg tablet 75 mg PO HS 07/13/18 09/10/21 History famotidine 20 mg tablet 20 mg PO BID 07/13/18 09/10/21 History metoprolol tartrate 50 mg tablet 50 mg PO BID 07/13/18 09/10/21 History pravastatin 40 mg tablet 40 mg PO HS 07/13/18 09/10/21 History trazodone 50 mg tablet 50 mg PO HS 07/13/18 09/10/21 History amlodipine 10 mg tablet (Norvasc) 10 mg PO HS 10/13/18 09/10/21 History multivitamin with minerals 1 tab PO QAM 11/15/19 09/10/21 History (Hair,Skin and Nails) ipratropium 0.5 mg-albuterol 3 mg 3 ml INHALATION Q4H PRN #180 ml 08/14/20 09/10/21 Rx (2.5 mg base)/3 mL nebulization soln docusate sodium 100 mg capsule 100 mg PO BID #60 cap 11/22/20 09/10/21 Rx (Colace) fluticasone 113 mcg-salmeterol 14 1 inh INHALATION BID 11/22/20 09/10/21 History mcg/actuation breath activated powdr hydralazine 25 mg tablet 25 mg PO TID 11/26/20 09/10/21 History Flutter Valve #1 ea 08/19/21 08/19/21 Rx ezetimibe 10 mg tablet (Zetia) 10 mg PO HS 09/10/21 09/10/21 History finasteride 5 mg tablet (Proscar) 5 mg PO HS 09/10/21 09/10/21 History losartan 25 mg tablet 25 mg PO QAM 09/10/21 09/10/21 History magnesium 250 mg tablet 0 mg PO QAM 09/10/21 09/10/21 History multivitamin with iron-mineral 1 tab PO DAILY 09/10/21 09/10/21 History ondansetron 4 mg disintegrating 4 mg PO TID PRN 09/10/21 09/10/21 History tablet tiotropium bromide 18 mcg capsule 1 cap INHALATION QAM 09/10/21 09/10/21 History with inhalation device (Spiriva with HandiHaler) Past Med/Surg History Medical History BPH with obstruction/lower urinary tract symptoms Carotid artery disease 2004-left CEA 2008-[facility]o left CEA 2012-right carotid artery stent 2015-common carotid artery to internal carotid artery bypass Cerebrovascular disease s/p multiple ischemic strokes Chronic kidney disease, stage 3a COPD (chronic obstructive pulmonary disease) Coronary artery disease s/p CABG Dyslipidemia Gout Hearing deficit History of bronchitis History of intracranial hemorrhage parenchymal hemorrhage perioperatively during / after carotid surgery Hypertension On anticoagulant therapy plavix daily On home oxygen therapy Peripheral vascular disease Pulmonary nodule [facility] 07/03/18: 1.3 cm right midlung nodule, slightly enlarged compared to 04/18/15. F/U with CT recommended. SBO (small bowel obstruction) Sepsis hx of Solitary kidney atrophic left kidney, nephrectomy performed for hypertension Stroke x5---per has aphasia, right arm weakness/loss of peripheral vision Tracheomalacia UTI (urinary tract infection) due to Enterococcus Vitamin D deficiency Surgical History History of bronchoscopy x2 History of cardiac cath x2----no stents History of colonoscopy History of tooth extraction all upper teeth Status post abdominal aortic aneurysm (AAA) repair Aortic dissection secondary to cardiac cath, s/p [id number] bypass graft and right renal bypass Status post carotid endarterectomy 09/30/2013--left @ [facility] Status post coronary artery bypass graft 1998 @ [facility] Status post nephrectomy left atrophic, nonfunctional associated with hypertension Status post transurethral resection of prostate Family History Sister Family history of diabetes mellitus Diabetes Brother Family history of diabetes mellitus Diabetes Heart disease Hypertension Other No family history of adverse response to anesthesia Social History Smoking Status: Former smoker Tobacco Type: Cigarettes Cigarettes Per Day: 20-40; Second Hand Exposure: No; Hx Alcohol Use: No Hx Substance Use: No Preferred Language: French Communication Ability: Effective Visual Impairment: No Limitations Hearing Ability: Normal 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: No Beliefs That Will Affect Care: None marital status: Current Living Situation: Spouse Current Living Situation Comment: with and sister current occupational status: retired Other Information That Helps Us Care for You: No Feels Safe at Home: Yes Safety Concerns: Feels Safe At This Time Assistive Devices: Oxygen - Continuous Review of Systems Review of Systems: ROS per HPI, all other systems reviewed and negative Physical Exam Constitutional: WD/WN, vitals as above Eyes: PERRL, conjunctivae normal, anicteric sclerae ENMT: external ear and nose normal, oropharynx normal Respiratory: normal respiratory effort, lungs clear to auscultation Auscultation: no rhonchi and no wheezes on BiPap Cardiovascular: Rate/Rhythm: regular rate and regular rhythm Vessels: normal peripheral pulses Extremities: no edema Gastrointestinal (Abdomen): normal bowel sounds, soft, nontender, no hepatosplenomegaly Skin: no rashes, warm and dry Neurologic: PERRL, EOMI, accommodation nl, no face palsy, no dysarthria Psychiatric: Orientation: alert, oriented to person, oriented to place and oriented to time (aware of year and month, unable to state day of week) Affect: euthymic affect Insight: + limited insight Results & Data Results & Data ([facility]) Vital Signs (Past 12 Hours) Vital Signs Temp Pulse Pulse Resp BP BP Pulse Ox 09/10/21 11:41 83 16 116/78 95 09/10/21 11:30 84 17 95 09/10/21 10:30 88 20 139/75 98 09/10/21 09:46 84 24 133/75 97 09/10/21 09:34 83 80 24 97 09/10/21 08:38 78 28 H 141/63 H 94 09/10/21 07:09 82 18 144/73 H 100 09/10/21 06:58 80 81 28 H 91 09/10/21 06:30 85 24 145/74 H 94 09/10/21 06:29 85 26 H 89 L 09/10/21 06:26 89 L 09/10/21 06:10 92 H 27 H 91 09/10/21 05:50 36.7 C 102 H 24 156/91 H 83 L Laboratory Results Short CBC 09/10/21 09/10/21 Range/Units 06:20 06:51 WBC Cancelled 17.54 H Hgb Cancelled 16.7 Hct Cancelled 52.9 H Plt Count Cancelled 159 BMP 09/10/21 06:20 Sodium 137 Potassium 4.8 Chloride 102 Carbon Dioxide 26 BUN 33 H Creatinine 1.59 H Glucose 143 H Calcium 9.9 Liver Function 09/10/21 Range/Units 06:20 Total Bilirubin 0.5 (0.2-1.0) mg/dl AST 20 (13-39) U/L ALT 22 (7-52) U/L Alkaline Phosphatase 96 (34-104) U/L Albumin 4.0 (3.4-5.0) gm/dl Diagnostic Findings Short CBC 09/10/21 09/10/21 Range/Units 06:20 06:51 WBC Cancelled 17.54 H Hgb Cancelled 16.7 Hct Cancelled 52.9 H Plt Count Cancelled 159 BMP 09/10/21 06:20 Sodium 137 Potassium 4.8 Chloride 102 Carbon Dioxide 26 BUN 33 H Creatinine 1.59 H Glucose 143 H Calcium 9.9 Liver Function 09/10/21 Range/Units 06:20 Total Bilirubin 0.5 (0.2-1.0) mg/dl AST 20 (13-39) U/L ALT 22 (7-52) U/L Alkaline Phosphatase 96 (34-104) U/L Albumin 4.0 (3.4-5.0) gm/dl Code Status & VTE Plan Code Status Patient is a full code with the exception of the use of invasive airway technique. Patient states that his Nereida would be his decision maker in the event he were to be unable to. VTE Prophylaxis Plan VTE Prophylaxis will be ordered: Yes Supervising Physician Co-Signing Physician Notes Patient was seen and evaluated independently. Chart was reviewed. Case reviewed with NEHEMIAS. Agree with assessment and plan as above (1) COPD (chronic obstructive pulmonary disease) COPD type: unspecified COPD Qualified Code(s): J44.9 - Chronic obstructive pulmonary disease, unspecified (2) Hypertension Hypertension type: unspecified Qualified Code(s): I10 - Essential (primary) hypertension
[2021-09-10] MEDS ORDERED: ACETAMINOPHEN 325 MG TAB PO PRN (12:42)
[2021-09-10] MEDS ORDERED: ALBUT/IPRATROP 3MG/0.5MG NEB 3 ML VIAL NEB SCH (12:42)
[2021-09-10] MEDS ORDERED: ALBUT/IPRATROP 3MG/0.5MG NEB 3 ML VIAL NEB PRN (13:45)
[2021-09-10] MEDS: ENOXAPARIN INJ 40 MG/0.4 ML SYR SQ SCH (13:48)
[2021-09-10] MEDS: hydrALAZINE HCL 25 MG TAB PO SCH ×2 (13:48→21:17)
[2021-09-10] MEDS ORDERED: PIPERACILLIN/TAZOBACTAM 4.5 GM in DEXTROSE 5% 100 ML IV ONE (15:00)
[2021-09-10] MEDS: ALBUT/IPRATROP 3MG/0.5MG NEB 3 ML VIAL NEB SCH ×2 (15:31→19:45)
--- NOTE | 2021-09-10 15:52 | Pulmonary Consultation ---
Date of Consultation September 10, 2021 Assessment & Plan (1) Acute on chronic respiratory failure with hypoxia: (2) CAMILO (obstructive sleep apnea): (3) COPD (chronic obstructive pulmonary disease): COPD type: unspecified COPD Qualified Code(s): J44.9 - Chronic obstructive pulmonary disease, unspecified (4) Hypercapnic respiratory failure: (5) Hemoptysis: Impression: 71-year-old male with acute on chronic hypoxemic and hypercarbic respiratory failure and bibasilar infiltrates. Unclear if this could have been an aspiration event which occurred during the night. His procalcitonin was normal and he is not been febrile but his white count is elevated. I do not see an indication for steroids however antibiotics would be reasonable currently. Recommendations: 1. COPD: Continue inhalers. He is not bronchospastic currently so no indication for steroids. 2. Hypoxemic respiratory failure: Secondary to VQ mismatch as well as hypercarbia. Continue supplemental oxygen. Continue pulmonary toilet is much as possible given the patient's underlying dementia 3. Hypercarbic respiratory failure: Suspect obesity hypoventilation syndrome. Can continue BiPAP nightly while sleeping. Outpatient polysomnography may be appropriate. 4. Hemoptysis: Unclear based on history and review of the medical record if this was true hemoptysis or potential hematemesis. Hematemesis would result in potential aspiration which could account for the basilar infiltrates. Will observe at this point in time. No indication for bronchoscopy or additional imaging. 5. Questionable pneumonia: The patient does have infiltrates but is afebrile. His white count is elevated however his procalcitonin is normal. Again continue antibiotics and follow CBC, fever curve and clinical response to therapy. May be able to de-escalate antibiotics. Of note the patient has demonstrated a persistent ESBL E. coli in his urine over time. 6. Elevated troponin: Management per primary service. Given the patient's underlying neurocognitive dysfunction, agree that intubation mechanical ventilation may not be in the patient's long-term best interest and agree with CODE STATUS as documented. We will see how he responds. Thanks for the opportunity of participating in the care of this patient. Feel free to contact us with questions. We will continue to follow with you History of Present Illness Attending Physician: Elmer Barnes MD History of Present Illness Asked by hospitalist to assist in evaluation management of this patient admitted with acute on chronic hypoxemic and hypercarbic respiratory failure and presumed pneumonia. History is obtained largely from review of the electronic medical record as the patient has underlying vascular dementia and is unable to provide any pertinent history. This 71-year-old male with a history of vascular dementia and COPD is followed b tresa Cowan in the outpatient setting. He was last seen about 3 weeks ago. At that point time he was stable on 2 L/min. Patient was brought to the emergency room today with complaint of worsening shortness of breath. According to the patient's , he experienced increased work of breathing overnight. He required a nonrebreather and a brief period of time on noninvasive positive pressure ventilation. CT scan demonstrated some bibasilar dependent atelectasis versus infiltrate. The patient was admitted to the hospitalist service and initiated on antimicrobial therapy. Pulmonary was consulted for additional evaluation and management. Based on Dr. Cowan's note, the patient was treated with a course of oral Augmentin when he saw him the first part of August. He had some nodular densities in the left lower lobe which required radiographic surveillance. Those are not evident on the current film although the basilar atelectatic changes might obscure some parenchymal abnormalities in the lung bases. He has had a swallow study performed by speech therapy here which demonstrated no evidence of aspiration although certainly his CT findings would be consistent with aspiration. According to the admission H&P, the patient did have some hematemesis last night. According to the admission H&P it is unclear whether this was hematemesis or hemoptysis but the patient is not had any other issues since that episode during the night. Allergies Allergy/AdvReac Type Severity Reaction Status Date / Time aspirin AdvReac Intermediate RELAXES Verified 09/10/21 07:38 RECTUM atorvastatin AdvReac Intermediate RELAXED Verified 09/10/21 07:38 RECTAL SPHINCTER Home Medications Medication Instructions Recorded Confirmed Type allopurinol 100 mg tablet 100 mg PO QAM 07/13/18 09/10/21 History clopidogrel 75 mg tablet 75 mg PO HS 07/13/18 09/10/21 History famotidine 20 mg tablet 20 mg PO BID 07/13/18 09/10/21 History metoprolol tartrate 50 mg tablet 50 mg PO BID 07/13/18 09/10/21 History pravastatin 40 mg tablet 40 mg PO HS 07/13/18 09/10/21 History trazodone 50 mg tablet 50 mg PO HS 07/13/18 09/10/21 History amlodipine 10 mg tablet (Norvasc) 10 mg PO HS 10/13/18 09/10/21 History multivitamin with minerals 1 tab PO QAM 11/15/19 09/10/21 History (Hair,Skin and Nails) ipratropium 0.5 mg-albuterol 3 mg 3 ml INHALATION Q4H PRN #180 ml 08/14/20 09/10/21 Rx (2.5 mg base)/3 mL nebulization soln docusate sodium 100 mg capsule 100 mg PO BID #60 cap 11/22/20 09/10/21 Rx (Colace) fluticasone 113 mcg-salmeterol 14 1 inh INHALATION BID 11/22/20 09/10/21 History mcg/actuation breath activated powdr hydralazine 25 mg tablet 25 mg PO TID 11/26/20 09/10/21 History Flutter Valve #1 ea 08/19/21 08/19/21 Rx ezetimibe 10 mg tablet (Zetia) 10 mg PO HS 09/10/21 09/10/21 History finasteride 5 mg tablet (Proscar) 5 mg PO HS 09/10/21 09/10/21 History losartan 25 mg tablet 25 mg PO QAM 09/10/21 09/10/21 History magnesium 250 mg tablet 0 mg PO QAM 09/10/21 09/10/21 History multivitamin with iron-mineral 1 tab PO DAILY 09/10/21 09/10/21 History ondansetron 4 mg disintegrating 4 mg PO TID PRN 09/10/21 09/10/21 History tablet tiotropium bromide 18 mcg capsule 1 cap INHALATION QAM 09/10/21 09/10/21 History with inhalation device (Spiriva with HandiHaler) Patient History Medical History BPH with obstruction/lower urinary tract symptoms Carotid artery disease 2004-left CEA 2008-redo left CEA 2012-right carotid artery stent 2016-common carotid artery to internal carotid artery bypass Cerebrovascular disease s/p multiple ischemic strokes Chronic kidney disease, stage 3a COPD (chronic obstructive pulmonary disease) Coronary artery disease s/p CABG Dyslipidemia Gout Hearing deficit History of bronchitis History of intracranial hemorrhage parenchymal hemorrhage perioperatively during / after carotid surgery Hypertension On anticoagulant therapy plavix daily On home oxygen therapy Peripheral vascular disease Pulmonary nodule CXR [facility] 07/03/18: 1.3 cm right midlung nodule, slightly enlarged compared to 04/18/15. F/U with CT recommended. SBO (small bowel obstruction) Sepsis hx of Solitary kidney atrophic left kidney, nephrectomy performed for hypertension Stroke x5---per has aphasia, right arm weakness/loss of peripheral vision Tracheomalacia UTI (urinary tract infection) due to Enterococcus Vitamin D deficiency Surgical History History of bronchoscopy x2 History of cardiac cath x2----no stents History of colonoscopy History of tooth extraction all upper teeth Status post abdominal aortic aneurysm (AAA) repair Aortic dissection secondary to cardiac cath, s/p [id number] bypass graft and right renal bypass Status post carotid endarterectomy 09/30/2013--left @ [facility] Status post coronary artery bypass graft 1998 @ [facility] Status post nephrectomy left atrophic, nonfunctional associated with hypertension Status post transurethral resection of prostate Family History Sister Family history of diabetes mellitus Diabetes Brother Family history of diabetes mellitus Diabetes Heart disease Hypertension Other No family history of adverse response to anesthesia Social History Smoking Status: Former smoker Tobacco Type: Cigarettes Cigarettes Per Day: 20-40; Second Hand Exposure: No; Hx Alcohol Use: No Hx Substance Use: No Preferred Language: Maltese Communication Ability: Effective Visual Impairment: No Limitations Hearing Ability: Normal Tub Operator Required: No Beliefs That Will Affect Care: None marital status: Current Living Situation: Spouse Current Living Situation Comment: with and sister current occupational status: retired Other Information That Helps Us Care for You: No Feels Safe at Home: Yes Safety Concerns: Feels Safe At This Time Assistive Devices: Oxygen - Continuous Review of Systems Review of Systems: Unobtainable due to cognitive status Physical Exam Physical Exam: Constitutional: Frail appearing male sitting in a wheelchair. Oxygen in place. Eyes: Pupils are equal round and reactive to light. Conjunctivae are normal. Anicteric sclera. Ears nose, mouth and throat: Face mask in place. Neck: Trachea is midline. Visual inspection is normal. Respiratory: Clear to auscultation bilaterally. No wheezes. Prolonged phase of exhalation. Cardiovascular: Regular rate and rhythm. No murmurs. No edema. Musculoskeletal: No cyanosis. Patient is able to move all extremities. Skin: No rashes, warm dry and intact. Neurologic: Diffusely weak. No focal irregularities noted. Psychiatric: Alert and oriented x3 with a euthymic affect. Results & Data Results & Data ([facility]) Vital Signs (Past 12 Hours) Vital Signs Temp Pulse Pulse Resp BP BP Pulse Ox 09/10/21 15:34 105 H 22 92 09/10/21 12:45 36.9 C 83 18 132/65 93 09/10/21 12:42 09/10/21 11:41 83 16 116/78 95 09/10/21 11:30 84 17 95 09/10/21 10:30 88 20 139/75 98 09/10/21 09:46 84 24 133/75 97 09/10/21 09:34 83 80 24 97 09/10/21 08:38 78 28 H 141/63 H 94 09/10/21 07:09 82 18 144/73 H 100 09/10/21 06:58 80 81 28 H 91 09/10/21 06:30 85 24 145/74 H 94 09/10/21 06:29 85 26 H 89 L 09/10/21 06:26 89 L 09/10/21 06:10 92 H 27 H 91 09/10/21 05:50 36.7 C 102 H 24 156/91 H 83 L Pulse Ox Pulse Ox 09/10/21 15:34 09/10/21 12:45 94 09/10/21 12:42 95 09/10/21 11:41 09/10/21 11:30 09/10/21 10:30 09/10/21 09:46 09/10/21 09:34 09/10/21 08:38 09/10/21 07:09 09/10/21 06:58 09/10/21 06:30 09/10/21 06:29 09/10/21 06:26 09/10/21 06:10 09/10/21 05:50 Critical Care Results & Data Vital Signs (Past 12 Hours) Vital Signs Temp Pulse Pulse Resp BP BP Pulse Ox 09/10/21 15:34 105 H 22 92 09/10/21 12:45 36.9 C 83 18 132/65 93 09/10/21 12:42 09/10/21 11:41 83 16 116/78 95 09/10/21 11:30 84 17 95 09/10/21 10:30 88 20 139/75 98 09/10/21 09:46 84 24 133/75 97 09/10/21 09:34 83 80 24 97 09/10/21 08:38 78 28 H 141/63 H 94 09/10/21 07:09 82 18 144/73 H 100 09/10/21 06:58 80 81 28 H 91 09/10/21 06:30 85 24 145/74 H 94 09/10/21 06:29 85 26 H 89 L 09/10/21 06:26 89 L 09/10/21 06:10 92 H 27 H 91 09/10/21 05:50 36.7 C 102 H 24 156/91 H 83 L Pulse Ox Pulse Ox 09/10/21 15:34 09/10/21 12:45 94 09/10/21 12:42 95 09/10/21 11:41 09/10/21 11:30 09/10/21 10:30 09/10/21 09:46 09/10/21 09:34 09/10/21 08:38 09/10/21 07:09 09/10/21 06:58 09/10/21 06:30 09/10/21 06:29 09/10/21 06:26 09/10/21 06:10 09/10/21 05:50 Lab & Micro Results (Past 24 Hours) RBC 5.38 M/uL (4.7-6.1) 09/10/21 WBC 17.54 K/uL (4.8-10.8) H 09/10/21 Hgb 16.7 g/dL (14.0-18.0) 09/10/21 Hct 52.9 % (42-52) H 09/10/21 MCV 98.3 fL (80-100) 09/10/21 MCH 31.0 pg (25-34) 09/10/21 MCHC 31.6 g/dL (32-36) L 09/10/21 RDW Standard Deviation 50.5 fL (36.4-46.3) H 09/10/21 RDW Coefficient of Variation 14.1 % (11.5-14.5) 09/10/21 Plt Count 159 K/uL (130-400) 09/10/21 MPV 9.6 fL (7.4-10.4) 09/10/21 Neutrophils (%) (Auto) 80.7 % 09/10/21 Lymphocytes (%) (Auto) 5.8 % 09/10/21 Monocytes # (Auto) 2.26 K/uL (0.11-0.59) H 09/10/21 Eosinophils # (Auto) 0.03 K/uL (0-0.5) 09/10/21 Immature Granulocyte % (Auto) 0.3 % 09/10/21 Neutrophils # (Auto) 14.17 K/uL (1.4-6.5) H 09/10/21 Lymphocytes # (Auto) 1.01 K/uL (1.2-3.4) L 09/10/21 Monocytes # (Auto) 2.26 K/uL (0.11-0.59) H 09/10/21 Eosinophils # (Auto) 0.03 K/uL (0-0.5) 09/10/21 Basophils # (Auto) 0.01 K/uL (0-0.2) 09/10/21 Immature Granulocyte # (Auto) 0.06 K/uL (0.00-0.02) H 09/10/21 Na 137 mmol/L (136-145) 09/10/21 K 4.8 mmol/L (3.5-5.1) 09/10/21 Cl 102 mmol/L (98-107) 09/10/21 CO2 26 mmol/L (21-32) 09/10/21 Anion Gap 9 (3-11) 09/10/21 BUN 33 mg/dl (6-23) H 09/10/21 Creatinine 1.59 mg/dl (0.6-1.4) H 09/10/21 Estimated GFR ( Amer) 49.2 ml/min 09/10/21 Estimated GFR (Non-Af Amer) 42.4 ml/min 09/10/21 BUN/Creatinine Ratio 20.8 (10-20) H 09/10/21 Glu 143 mg/dl (70-99(Fasting)) H 09/10/21 Ca 9.9 mg/dl (8.5-10.1) 09/10/21 Total Bilirubin 0.5 mg/dl (0.2-1.0) 09/10/21 AST 20 U/L (13-39) 09/10/21 ALT 22 U/L (7-52) 09/10/21 Alkaline Phosphatase 96 U/L (34-104) 09/10/21 TP 7.4 gm/dl (6.0-8.3) 09/10/21 Albumin 4.0 gm/dl (3.4-5.0) 09/10/21 Globulin 3.4 gm/dl (2.5-4.0) 09/10/21 Albumin/Globulin Ratio 1.2 (0.9-2) 09/10/21 Calcium Level 9.9 mg/dl (8.5-10.1) 09/10/21 06:20 09/10/21 Prothromb Time International Ratio 1.0 (0.9-1.1) 09/10/21 06:20 09/10/21 Venous Blood pH 7.32 (7.36-7.41) L 09/10/21 06:37 09/10/21 Venous Blood Partial Pressure CO2 59 mmHg (38-50) H 09/10/21 06:37 Venous Blood Partial Pressure O2 32 mmHg 09/10/21 06:37 09/10/21 Venous Blood HCO3 30 mmol/L 09/10/21 06:37 09/10/21 Venous Blood Base Excess 1.6 mEq/L 09/10/21 06:37 09/10/21 Venous Blood Oxygen Saturation 60.1 % 09/10/21 06:37 09/10/21 Blood Gas Barometric Pressure 732.8 mm/Hg 09/10/21 06:37 09/10/21 Blood Gas Barometric Pressure 732.8 mm/Hg 09/10/21 06:37 09/10/21 Diagnostic Findings (Past 24 Hours) Chest X-Ray 09/10/21 06:03 XR chest 1V portable CLINICAL HISTORY: Dyspnea. COMPARISON STUDY: Chest radiograph July 22, 2021. Chest CT August 15, 2021. FINDINGS: There is no pneumothorax or pleural effusion. Emphysema is noted. There are median sternotomy wires and mediastinal surgical clips. Cardiomediastinal silhouette is stable. Perihilar and right basilar airspace opacity is noted. This likely corresponds to the opacity shown to CT of August 15, 2021. Hazy left basilar opacity is likely due to epicardial fat pad. There is no evidence for pulmonary edema. IMPRESSION: 1. Persistent right perihilar and right basilar opacity which likely corresponds to finding on chest CT of August 15, 2021. Although this may reflect pneumonia, a mass cannot be excluded. A chest CT is recommended for further evaluation. 2. Emphysema. ACT 112: Negative or not required by law. Electronically signed by: Mario Baker M.D. 09/10/2021 6:38 AM Chest CTA 09/10/21 07:09 CT angio chest PE protocol CLINICAL HISTORY: Hemoptysis. Difficulty breathing. History of COPD. COMPARISON STUDY: Portable chest from 09/10/[address] chest from 08/15/2021 CT DOSE: 850.34 mGy.cm TECHNIQUE: CT Angio of the chest was performed.followed by image post processing with coronal, and sagittal MIP reformats. Contrast Volume: Optiray 320, 120 ml FINDINGS: Vasculature: There is homogeneous perfusion of the pulmonary vasculature bilaterally. No intraluminal filling defects or evidence for pulmonary embolus is seen. Airway: The airway is clear. No endobronchial lesion is identified. Lungs: There are confluent alveolar opacities at both lung bases, right greater than left. No air bronchograms are seen. No definite focal mass is identified. Centrilobular emphysematous changes are present particularly involving the upper lobes bilaterally. No pulmonary nodules are identified. Pleura: There is no evidence for pleural effusion. There is no evidence for pneumothorax. Mediastinum: There is no evidence for pathologic adenopathy. Heart size is within normal limits status post previous cardiothoracic surgery. Coronary artery calcifications present. The thoracic aorta is within normal limits. Atherosclerotic calcification is present. There is no evidence for pericardial effusion. Upper abdomen:There is evidence for small sliding-type hiatal hernia. Osseous structures: There is no acute osseous pathology. Impression: 1. No CTA evidence for pulmonary embolus. 2. Confluent alveolar opacities at both lung bases, right greater than left with findings suspicious for bibasilar pneumonia. 3. Underlying COPD. 4. Previous cardiothoracic surgery and coronary artery calcification. ACT 112: Negative or not required by law. Electronically signed by: Adryan Lujan M.D. 09/10/2021 9:47 AM I & O Totals 24 Hours 09/09/21 09/10/21 09/11/21 06:59 06:59 06:59 Intake Total 355 / 355 Balance 355 / 355 Cumulative 09/10/21 05:47 thru 09/10/21 13:45 Intake Total 355 Balance 355 RT Ventilator Mngmt (Last Documented) Ventilator Ordered Settings Respiratory Rate 22 09/10/21 15:34 Fraction of Inspired Oxygen 70 09/10/21 11:30 Ventilator - PT Measurements Respiratory Rate 22 PG Care Time/CCT Total # of Minutes Spent Total Time Spent with Patient: Total time spent is greater than 50% in coordination of care (as documented) at patient's floor/unit and/or counseling patient: Coding Level of Care Code 67798 Initial Inpt Care Lvl 3 Diagnoses Acute on chronic respiratory failure with hypoxia J96.21 CAMILO (obstructive sleep apnea) G47.33 COPD (chronic obstructive pulmonary disease) J44.9 COPD type: unspecified COPD Hypercapnic respiratory failure J96.92 Hemoptysis R04.2
[2021-09-10] MEDS: PIPERACILLIN/TAZOBACTAM 4.5 GM in DEXTROSE 5% 100 ML IV SCH (21:14)
[2021-09-10] MEDS: traZODone HCL 50 MG TAB PO SCH (21:17)
[2021-09-10] MEDS: PRAVASTATIN SOD 40 MG TAB PO SCH (21:17)
[2021-09-10] MEDS: METOPROLOL TARTRATE 50 MG TAB PO SCH (21:17)
[2021-09-10] MEDS: FAMOTIDINE 20 MG TAB PO SCH (21:17)
[2021-09-10] MEDS: FINASTERIDE 5 MG TAB PO SCH (21:17)
[2021-09-10] MEDS: amLODIPine BESYLATE 5 MG TAB PO SCH (21:18)
[2021-09-10] MEDS: CLOPIDOGREL BISULFATE 75 MG TAB PO SCH (21:18)
[2021-09-10] MEDS: DOCUSATE SODIUM 100 MG CAP PO SCH (21:18)
[2021-09-10] MEDS: EZETIMIBE 10 MG TABLET PO SCH (21:18)
[2021-09-11 01:29] LABS: Appearance Urine Cloudy (Clear); Bacteria Urine Automated Negative (Negative); Bilirubin Urine Negative (Negative); Blood Urine Negative (Negative); Cast Urine Automated 0 /lpf (0-5); Color Urine Yellow; Glucose Urine UA Negative (Negative); Ketones Urine Trace (Negative); Leukocyte Esterase Urine Negative (Negative); Nitrite Urine Negative (Negative); Protein Urine 1+ (Negative); RBC Urine Automated 0-4 /hpf (0-4); Urobilinogen Urine Negative (Negative)
[2021-09-11] MEDS: PIPERACILLIN/TAZOBACTAM 4.5 GM in DEXTROSE 5% 100 ML IV SCH ×3 (05:43→21:21)
[2021-09-11] MEDS: ALBUT/IPRATROP 3MG/0.5MG NEB 3 ML VIAL NEB SCH (07:11)
[2021-09-11] MEDS ORDERED: AZITHROMYCIN 500 MG in DEXTROSE 5% 250 ML IV SCH (08:00)
[2021-09-11 08:08] LABS: BUN Creatinine Ratio 23.2 (10-20); Calcium 9.4 mg/dl (8.5-10.1); Creatinine Clr Calc Pharmacy 48.2 ml/min; Est GFR (African American) 47.4 ml/min; Est GFR (Non-African American) 40.9 ml/min; Potassium 4.8 mmol/L (3.5-5.1)
--- NOTE | 2021-09-11 08:15 | Pulmonology Progress Note ---
Date of Service September 11, 2021 Assessment & Plan (1) Acute on chronic respiratory failure with hypoxia: (2) CAMILO (obstructive sleep apnea): (3) COPD (chronic obstructive pulmonary disease): COPD type: unspecified COPD Qualified Code(s): J44.9 - Chronic obstructive pulmonary disease, unspecified (4) Hypercapnic respiratory failure: (5) Hemoptysis: Plan: Impression: 71-year-old male with acute on chronic hypoxemic and hypercarbic respiratory failure and bibasilar infiltrates. Unclear if this could have been an aspiration event which occurred during the night in association with his vomiting episode. His procalcitonin was normal and he is not been febrile but his white count is elevated. I do not see an indication for steroids however antibiotics would be reasonable currently. Recommendations: 1. COPD: Continue Breo and prn duoneb. He is not bronchospastic currently so no indication for steroids. 2. Hypoxemic respiratory failure: Secondary to VQ mismatch as well as hypercarbia. Continue supplemental oxygen. Continue pulmonary toilet is much as possible given the patient's underlying dementia. Discussed with RT and bedside nurse. He has a flutter valve which he should continue. I am not sure his neurocognitive status will allow for effective incentive spirometry. He needs to try and be upright, preferably out of bed to chair to improve VQ mism atch. We discussed trying to get him out of bed to chair. We will ask for PT and OT evaluations. Titrate oxygen to maintain saturations at or above 88%. 3. Hypercarbic respiratory failure: Suspect obesity hypoventilation syndrome. Can continue BiPAP nightly while sleeping. Outpatient polysomnography may be appropriate. Reinforced need for adherence to nocturnal BiPAP with respiratory therapy 4. Hemoptysis: Unclear based on history and review of the medical record if this was true hemoptysis or potential hematemesis. Regardless he is not had any recurrent events and no indication for more invasive procedures. Continue to follow clinically 5. Questionable pneumonia: The patient does have infiltrates but is afebrile. His white count is elevated however his procalcitonin is normal and he remains afebrile. If white count today decreases, can likely de-escalate antimicrobial therapy from a lung standpoint. D#2 zosyn. Of note the patient has demonstrated a persistent ESBL E. coli in his urine over time. 6. Elevated troponin: Management per primary service. Given the patient's underlying neurocognitive dysfunction, agree that intubation mechanical ventilation may not be in the patient's long-term best interest and agree with CODE STATUS as documented. We will see how he responds. Thanks for the opportunity of participating in the care of this patient. Feel free to contact us with questions. We will continue to follow with you Admission and Anticipated Discharge Date Admission Date: September 10, 2021 Subjective Patient seen and examined. Discussed with bedside nurse. The patient offers no complaints. He states he ate breakfast. He denies any chest pain or shortness of breath. He continues to require high levels of oxygen. Nursing feels that he is too big of a fall risk to mobilize him out of bed at this point time. Review of Systems Review of Systems: Unobtainable due to cognitive status Physical Exam Constitutional: WD/WN, vitals as above + morbidly obese; not in distress Neck: trachea midline, no thyromegaly Respiratory: no respiratory distress, no labored breathing and not tachypneic Auscultation: + diminished lung sounds; no crackles and no wheezes Cardiovascular: RRR, no murmur, no edema Gastrointestinal (Abdomen): normal bowel sounds, soft, nontender, no hepatosplenomegaly Musculoskeletal: Extremities: extremities normal to inspection Skin: no rashes, warm and dry Neurologic: Nonfocal exam Lymphatic: no cervical lymphadenopathy Results & Data Results & Data ([facility]) Vital Signs (Past 12 Hours) Vital Signs Temp Pulse Pulse Resp BP Pulse Ox 09/11/21 08:06 36.6 C 92 H 26 H 117/68 90 09/11/21 07:54 79 09/11/21 07:12 87 20 90 09/11/21 03:51 36.9 C 93 H 20 137/67 92 09/11/21 03:12 88 15 91 09/10/21 23:09 36.9 C 105 H 18 102/73 91 Laboratory Results 09/11/21 06:56 Diagnostic Findings No new imaging PG Care Time/CCT Total # of Minutes Spent Total Time Spent with Patient: Total time spent is greater than 50% in coordination of care (as documented) at patient's floor/unit and/or counseling patient: Coding Level of Care Code 74720 Subseq Hosp Care Lvl 2 Diagnoses Acute on chronic respiratory failure with hypoxia J96.21 CAMILO (obstructive sleep apnea) G47.33 COPD (chronic obstructive pulmonary disease) J44.9 COPD type: unspecified COPD Hypercapnic respiratory failure J96.92 Hemoptysis R04.2
[2021-09-11 08:36] LABS: Hematocrit (blood only) 46.1 % (42-52); Hemoglobin 14.7 g/dL (14.0-18.0); Mean Corpuscular Hemoglobin 30.2 pg (25-34); Mean Corpuscular Hgb Conc 31.9 g/dL (32-36); Mean Corpuscular Volume 94.7 fL (80-100); Mean Platelet Volume 9.8 fL (7.4-10.4); Platelet Count 161 K/uL (130-400); RDW Coefficient of Variation 14.1 % (11.5-14.5); RDW Standard Deviation 48.9 fL (36.4-46.3); Red Blood Count 4.87 M/uL (4.7-6.1); White Blood Count 20.56 K/uL (4.8-10.8)
[2021-09-11] MEDS ORDERED: FLUTICASONE/VILANTEROL 200/25MCG 14 PUFFS/INHALER INH SCH (09:00)
[2021-09-11] MEDS: allopurinoL 100 MG TAB PO SCH (09:17)
[2021-09-11] MEDS: hydrALAZINE HCL 25 MG TAB PO SCH ×3 (09:18→21:13)
[2021-09-11] MEDS: FAMOTIDINE 20 MG TAB PO SCH ×2 (09:18→21:13)
[2021-09-11] MEDS: DOCUSATE SODIUM 100 MG CAP PO SCH ×2 (09:18→21:13)
[2021-09-11] MEDS: METOPROLOL TARTRATE 50 MG TAB PO SCH ×2 (09:19→21:12)
[2021-09-11] MEDS: LOSARTAN POTASSIUM 25 MG TAB PO SCH (09:19)
[2021-09-11] MEDS: BUDESONIDE 0.5 MG/2 ML VIAL (PULMICORT) NEB SCH ×2 (10:08→19:40)
[2021-09-11] MEDS: FORMOTEROL 20 MCG/2 ML VIAL NEB SCH ×2 (10:08→19:40)
--- NOTE | 2021-09-11 12:47 | Hospitalist Progress Note ---
Date of Service September 11, 2021 Assessment & Plan (1) Acute on chronic respiratory failure with hypoxia: (2) COPD (chronic obstructive pulmonary disease): (3) Pneumonia: (4) Cerebrovascular disease: (5) Hypertension: (6) Chronic kidney disease, stage 3a: Plan: Acute on chronic respiratory failure with hypoxia due to Pneumonia and COPD - on 3-4 L oxygen at home but here unable to maintain saturation despite oxymask and now on BIPAP - continue BIPAP, wean down as tolerated - CT with no PE but bibasilar PNA R>L, possible aspiration given preceding vomiting episode- currently on zosyn D2- will continue. MRSA nare negative. Worsening WBC could be from the steroid in ED. - no wheezes, doesn't seem to be in acute exacerbation and not on steroids. Will initiate if has wheezes or respiratory status does not improve - will continue nebs- pulmicort/perforomist, duonebs for now - continue flutter valve- unable to use IS - Pulm following H/o multiple CVA, h/o carotid artery intervention and CABG- continue plavix, statin, zetia CKD3a- Cr around baseline of 1.3-1.5 HTN- BP stable on lopressor, losartan, hydralazine, amlodipine ?hemoptysis- per H&P. not witnessed here. H&H stable. Elevated trop- mildly elevated, likely demand isch from resp distress. Will recheck in am for completeness and monitor on tele. Denies any chest pain, no ischemic EKG changes. DVT prophylaxis- sc lovenox Dispo- not medically stable, currently on BIPAP for resp failure. Patient is DNI. If does not improve, will consult palliative to further address goals of care. Admission and Anticipated Discharge Date Admission Date: September 10, 2021 Subjective Patient was seen and examined at bedside. He was unable to maintain saturation despite NC and oxymask and was transitioned to BIPAP this morning. On BIPAP during my encounter. Awake alert orientedx2 and answering questions appropriately. States his breathing is fine. Denies any chest pain, tightness or wheezing. States he has had 5 strokes. Physical Exam Physical Exam: General: Lying comfortably in bed, not in acute distress, on BIPAP HEENT: EOMI, SMITA Chest: Fair but diminished breath sounds bilaterally without wheezes or crackles CVS: Regular rate and rhythm, normal heart sounds, no murmur Abdomen: Soft, non tender, not distended, normal bowel sounds Neuro: Awake, alert, oriented, conversing well, non focal Extremities: No cyanosis, clubbing or edema Results & Data Results & Data ([facility]) Vital Signs (Past 12 Hours) Vital Signs Temp Pulse Pulse Resp BP Pulse Ox 09/11/21 11:10 37.1 C 86 21 140/77 97 09/11/21 10:11 91 H 22 94 09/11/21 09:57 92 H 21 95 09/11/21 08:06 36.6 C 92 H 26 H 117/68 90 09/11/21 07:54 79 09/11/21 07:12 87 20 90 09/11/21 03:51 36.9 C 93 H 20 137/67 92 09/11/21 03:12 88 15 91 Laboratory Results Short CBC 09/11/21 Range/Units 06:56 WBC 20.56 H (4.8-10.8) K/uL Hgb 14.7 (14.0-18.0) g/dL Hct 46.1 (42-52) % Plt Count 161 (130-400) K/uL BMP 09/11/21 06:56 Sodium 136 Potassium 4.8 Chloride 103 Carbon Dioxide 27 BUN 38 H Creatinine 1.64 H Glucose 137 H Calcium 9.4 Urine 09/11/21 Range/Units 01:15 Urine Color Yellow Urine Appearance Cloudy A (Clear) Urine pH 5.0 (4.5-7.5) Ur Specific Almond 1.040 H (1.000-1.030) Urine Protein 1+ H (Negative) Urine Glucose (UA) Negative (Negative) Medications Administered Current Inpatient Medications Acetaminophen (Acetaminophen 325 Mg Tab) 650 mg PO Q4H PRN PRN Reason: Pain or Fever Stop: 10/10/21 12:41 Albuterol (Albut/Ipratrop 3mg/0.5mg Neb 3 Ml Vial) 3 ml NEB Q2R PRN; Protocol PRN Reason: Shortness Of Breath Or Wheezing Stop: 10/10/21 13:44 Albuterol (Albut/Ipratrop 3mg/0.5mg Neb 3 Ml Vial) 3 ml NEB QIDR NATALYA; Protocol Stop: 10/10/21 14:59 Last Admin: 09/11/21 07:11 Dose: 3 ml Documented by: Allopurinol (Allopurinol 100 Mg Tab) 100 mg PO QAM [facility] Stop: 10/11/21 08:59 Last Admin: 09/11/21 09:17 Dose: 100 mg Documented by: Amlodipine Besylate (Amlodipine Besylate 5 Mg Tab) 10 mg PO HS [facility] Stop: 10/10/21 20:59 Last Admin: 09/10/21 21:18 Dose: 10 mg Documented by: Budesonide (Budesonide 0.5 Mg/2 Ml Vial (Pulmicort)) 1 mg NEB BIDR [facility] Stop: 10/11/21 09:09 Last Admin: 09/11/21 10:08 Dose: 1 mg Documented by: Clopidogrel Bisulfate (Clopidogrel Bisulfate 75 Mg Tab) 75 mg PO HS [facility] Stop: 10/10/21 20:59 Last Admin: 09/10/21 21:18 Dose: 75 mg Documented by: Docusate Sodium (Docusate Sodium 100 Mg Cap) 100 mg PO BID [facility] Stop: 10/10/21 20:59 Last Admin: 09/11/21 09:18 Dose: 100 mg Documented by: Ezetimibe (Ezetimibe 10 Mg Tablet) 10 mg PO [facility] Stop: 10/10/21 20:59 Last Admin: 09/10/21 21:18 Dose: 10 mg Documented by: Enoxaparin Sodium (Enoxaparin Inj 40 Mg/0.4 Ml Syr) 40 mg SQ Q24H [facility] Stop: 10/10/21 13:29 Last Admin: 09/10/21 13:48 Dose: 40 mg Documented by: Famotidine (Famotidine 20 Mg Tab) 20 mg PO BID [facility] Stop: 10/10/21 20:59 Last Admin: 09/11/21 09:18 Dose: 20 mg Documented by: Finasteride (Finasteride 5 Mg Tab) 5 mg PO HS [facility] Stop: 10/10/21 20:59 Last Admin: 09/10/21 21:17 Dose: 5 mg Documented by: Fluticasone/Vilanterol (Fluticasone/Vilanterol 200/25mcg 14 Puffs/Inhaler) 1 puffs INH DAILY [facility] Stop: 10/11/21 08:59 Last Admin: 09/11/21 10:47 Dose: Not Given Documented by: Formoterol Fumarate (Formoterol 20 Mcg/2 Ml Vial) 20 mcg NEB BIDR [facility] Stop: 10/11/21 09:14 Last Admin: 09/11/21 10:08 Dose: 20 mcg Documented by: Hydralazine HCl (Hydralazine Hcl 25 Mg Tab) 25 mg PO TID [facility] Stop: 10/10/21 13:59 Last Admin: 09/11/21 09:18 Dose: 25 mg Documented by: Piperacillin Sod/Tazobactam (Sod 4.5 gm/ Dextrose) 120 mls @ 30 mls/hr IV Q8H [facility]; Protocol Stop: 09/17/21 20:59 Last Infusion: 09/11/21 09:43 Dose: Infused Documented by: Losartan Potassium (Losartan Potassium 25 Mg Tab) 25 mg PO QAM [facility] Stop: 10/11/21 08:59 Last Admin: 09/11/21 09:19 Dose: 25 mg Documented by: Metoprolol Tartrate (Metoprolol Tartrate 50 Mg Tab) 50 mg PO BID [facility] Stop: 10/10/21 20:59 Last Admin: 09/11/21 09:19 Dose: 50 mg Documented by: Miscellaneous Information (Piperacill/Tazobac Consult Active) 1 ea N/A UD PRN PRN Reason: Consult Stop: 10/10/21 10:55 Pravastatin Sodium (Pravastatin Sod 40 Mg Tab) 40 mg PO [facility] Stop: 10/10/21 20:59 Last Admin: 09/10/21 21:17 Dose: 40 mg Documented by: Trazodone HCl (Trazodone Hcl 50 Mg Tab) 50 mg PO [facility] Stop: 10/10/21 20:59 Last Admin: 09/10/21 21:17 Dose: 50 mg Documented by: (1) COPD (chronic obstructive pulmonary disease) COPD type: unspecified COPD Qualified Code(s): J44.9 - Chronic obstructive pulmonary disease, unspecified (2) Hypertension Hypertension type: unspecified Qualified Code(s): I10 - Essential (primary) hypertension
[2021-09-11] MEDS: ENOXAPARIN INJ 40 MG/0.4 ML SYR SQ SCH (13:30)
[2021-09-11] MEDS: traZODone HCL 50 MG TAB PO SCH (21:12)
[2021-09-11] MEDS: PRAVASTATIN SOD 40 MG TAB PO SCH (21:12)
[2021-09-11] MEDS: FINASTERIDE 5 MG TAB PO SCH (21:13)
[2021-09-11] MEDS: EZETIMIBE 10 MG TABLET PO SCH (21:13)
[2021-09-11] MEDS: amLODIPine BESYLATE 5 MG TAB PO SCH (21:14)
[2021-09-11] MEDS: CLOPIDOGREL BISULFATE 75 MG TAB PO SCH (21:14)
[2021-09-12] MEDS: PIPERACILLIN/TAZOBACTAM 4.5 GM in DEXTROSE 5% 100 ML IV SCH ×3 (05:44→20:51)
[2021-09-12] MEDS: FORMOTEROL 20 MCG/2 ML VIAL NEB SCH ×2 (07:14→19:11)
[2021-09-12] MEDS: BUDESONIDE 0.5 MG/2 ML VIAL (PULMICORT) NEB SCH ×2 (07:14→19:11)
--- NOTE | 2021-09-12 08:18 | Pulmonology Progress Note ---
Date of Service September 12, 2021 Assessment & Plan (1) Acute on chronic respiratory failure with hypoxia: (2) CAMILO (obstructive sleep apnea): (3) COPD (chronic obstructive pulmonary disease): COPD type: unspecified COPD Qualified Code(s): J44.9 - Chronic obstructive pulmonary disease, unspecified (4) Hypercapnic respiratory failure: (5) Hemoptysis: Plan: Impression: 71-year-old male with acute on chronic hypoxemic and hypercarbic respiratory failure and bibasilar infiltrates. He is being treated for pneumonia however he has been afebrile with a normal procalcitonin. He had some worsening of his oxygen saturations this morning and repeat chest x-ray is pending. He improved with deep breathing and cough. Recommendations: 1. COPD: Continue Breo and prn duoneb. He is not bronchospastic currently so no indication for steroids. 2. Hypoxemic respiratory failure: Secondary to VQ mismatch as well as hypercarbia. Continue supplemental oxygen. Continue pulmonary toilet is much as possible given the patient's underlying dementia. Discussed with RT and bedside nurse. Blood gas this morning demonstrated mild hypercarbia with hypoxemia. We will see how he responds to positive airway pressure and may try trial of heated high flow oxygen. Avoid respiratory suppression medications. Follow-up chest x-ray is pending 3. Hypercarbic respiratory failure: Suspect obesity hypoventilation syndrome. Can continue BiPAP nightly while sleeping, 15/10. Outpatient polysomnography may be appropriate. 4. Hemoptysis: Unclear based on history and review of the medical record if this was true hemoptysis or potential hematemesis. May have had some blood- tinged phlegm yesterday. Await follow-up chest x-ray 5. Questionable pneumonia: The patient does have infiltrates but is afebrile. His white count is elevated and continues to climb, however his procalcitonin is normal and he remains afebrile. Cultures are showing no growth to date. D#3 zosyn. Of note the patient has demonstrated a persistent ESBL E. coli in his urine over time. Unable to get lower respiratory cultures. Additional recommendations based on follow-up imaging. 6. Elevated troponin: Management per primary service. Given the patient's underlying neurocognitive dysfunction, agree that intubation mechanical ventilation may not be in the patient's long-term best interest and agree with CODE STATUS as documented. Discussed with respiratory therapy and bedside nursing. Thanks for the opportunity of participating in the care of this patient. Feel free to contact us with questions. We will continue to follow with you Admission and Anticipated Discharge Date Admission Date: September 10, 2021 Subjective Patient seen and examined. Discussed with respiratory therapy and bedside nursing. Patient used his BiPAP all night last night and was comfortable. This morning he apparently had some decrease in his oxygen saturations. When I evaluated the patient, his saturations were in the mid to low 80% range on 100% FiO2 on BiPAP at 20/10. He was getting tidal volumes anywhere from 800 to 1600 mL. The patient despite this is in no distress. He states he is breathing comfortably. He is able to cough and clear up some phlegm. Review of Systems Review of Systems: Unobtainable due to cognitive status Physical Exam Constitutional: WD/WN, vitals as above + morbidly obese; not in distress Neck: trachea midline, no thyromegaly Respiratory: no respiratory distress, no labored breathing and not tachypneic Auscultation: + diminished lung sounds; no crackles and no wheezes Cardiovascular: RRR, no murmur, no edema Gastrointestinal (Abdomen): normal bowel sounds, soft, nontender, no hepatosplenomegaly Musculoskeletal: Extremities: extremities normal to inspection Skin: no rashes, warm and dry Lymphatic: no cervical lymphadenopathy Results & Data Results & Data ([facility]) Vital Signs (Past 12 Hours) Vital Signs Temp Pulse Pulse Resp BP Pulse Ox 09/12/21 07:52 36.8 C 89 22 124/83 83 L 09/12/21 07:17 85 17 92 09/12/21 07:15 87 17 92 09/12/21 03:58 36.9 C 86 18 160/86 H 95 09/12/21 02:21 79 17 91 09/12/21 00:08 36.9 C 75 24 131/74 84 L 09/11/21 22:58 88 18 95 Critical Care Results & Data Vital Signs (Past 12 Hours) Vital Signs Temp Pulse Pulse Resp BP Pulse Ox 09/12/21 07:52 36.8 C 89 22 124/83 83 L 09/12/21 07:17 85 17 92 09/12/21 07:15 87 17 92 09/12/21 03:58 36.9 C 86 18 160/86 H 95 09/12/21 02:21 79 17 91 09/12/21 00:08 36.9 C 75 24 131/74 84 L 09/11/21 22:58 88 18 95 Lab & Micro Results (Past 24 Hours) No Data to Display No Data to Display No Data to Display Microbiology 09/10/21 08:06 Aerobic Blood Culture - Preliminary Blood No growth in Aerobic bottle after 24 hours. Anaerobic Blood Culture - Preliminary No growth in Anaerobic bottle after 24 hours. 09/10/21 08:06 Aerobic Blood Culture - Preliminary Blood No growth in Aerobic bottle after 24 hours. Anaerobic Blood Culture - Preliminary No growth in Anaerobic bottle after 24 hours. I & O Totals 24 Hours 09/11/21 09/12/21 09/13/21 06:59 06:59 06:59 Intake Total 795 / 795 360 / 360 Output Total 301 / 301 1350 / 1350 Balance 494 / 494 -990 / -990 Cumulative 09/10/21 05:47 thru 09/12/21 06:14 Intake Total 1155 Output Total 1651 Balance -496 RT Ventilator Mngmt (Last Documented) Ventilator Ordered Settings Respiratory Rate 22 09/12/21 07:52 Fraction of Inspired Oxygen 100 09/12/21 07:17 Ventilator - PT Measurements Respiratory Rate 22 PG Care Time/CCT Total # of Minutes Spent Total Time Spent with Patient: Total time spent is greater than 50% in coordination of care (as documented) at patient's floor/unit and/or counseling patient: Coding Level of Care Code 46396 Subseq Hosp Care Lvl 3 Diagnoses Acute on chronic respiratory failure with hypoxia J96.21 CAMILO (obstructive sleep apnea) G47.33 COPD (chronic obstructive pulmonary disease) J44.9 COPD type: unspecified COPD Hypercapnic respiratory failure J96.92 Hemoptysis R04.2
[2021-09-12 08:28] LABS: iSTAT Allen Test Pass; iSTAT Art Bld Gas pCO2 Correct 48 mmHg (35-46); iSTAT Art Bld Gas pH Corrected 7.374 (7.35-7.45); iSTAT Arterial Blood Gas HCO3 28 meg/L (19-24); iSTAT Arterial Blood Gas pCO2 48 mmHg (35-46); iSTAT Arterial Blood Gas pH 7.37 (7.35-7.45); iSTAT Arterial Blood Gas pO2 46 mmHg (80-95); iSTAT Arterial Blood Gas pO2 C 46; iSTAT Carbon Dioxide 30 mmol/L (24-31); iSTAT FiO2 100 %; iSTAT Hematocrit 47 % (42-52); iSTAT Potassium 4.4 mmol/L (3.3-5.0); iSTAT Site L Radial; iSTAT Sodium 137 mmol/L (135-144)
[2021-09-12 08:31] LABS: Basophils # (auto) 0.02 K/uL (0-0.2); Basophils % (auto) 0.1 %; Eosinophils # (auto) 0.06 K/uL (0-0.5); Eosinophils % (auto) 0.4 %; Hematocrit (blood only) 48.5 % (42-52); Immature Granulocytes # (auto) 0.04 K/uL (0.00-0.02); Immature Granulocytes % (auto) 0.3 %; Lymphocytes # (auto) 1.57 K/uL (1.2-3.4); Lymphocytes % (auto) 11.2 %; Mean Corpuscular Hemoglobin 31.3 pg (25-34); Mean Corpuscular Volume 94.7 fL (80-100); Mean Platelet Volume 9.6 fL (7.4-10.4); Monocytes # (auto) 1.48 K/uL (0.11-0.59); Monocytes % (auto) 10.6 %; Neutrophils % (auto) 77.4 %; Platelet Count 164 K/uL (130-400); RDW Coefficient of Variation 14.2 % (11.5-14.5); RDW Standard Deviation 49.3 fL (36.4-46.3); Red Blood Count 5.12 M/uL (4.7-6.1); White Blood Count 13.97 K/uL (4.8-10.8)
--- NOTE | 2021-09-12 08:36 | XRay Report ---
SINGLE VIEW CHEST CLINICAL HISTORY: Hypoxia. FINDINGS: An AP, portable, upright chest radiograph is compared to chest x-ray and chest CT dated 08/17. The patient is status post midline sternotomy. The heart is enlarged noting atherosclerotic c alcification of the thoracic aorta. The pulmonary vasculature is noncongested. Emphysema and chronic interstitial thickening is similar to previous. Airspace consolidation is again seen at both lung bas es. Question trace pleural effusion. No pneumothorax is seen. The skeletal structures are osteopenic. The bony thorax is grossly intact. IMPRESSION: 1. Cardiomegaly and emphysema with no radiographic evidence of congestive failure. 2. Bibasilar consolidation is unchanged from previous and suggests pneumonia/aspiration pneumonitis. Clinical correlation will be required and radiographic follow-up to resolution is recommended. 3. Question trace pleural effusions. ACT 112: Negative or not required by law. Electronically signed by: Lloyd Bryan M.D. 09/12/2021 8:34 AM
[2021-09-12 09:00] LABS: BUN Creatinine Ratio 23.2 (10-20); Calcium 9.6 mg/dl (8.5-10.1); Creatinine Clr Calc Pharmacy 45.7 ml/min; Est GFR (African American) 47.4 ml/min; Est GFR (Non-African American) 40.9 ml/min; Magnesium 1.8 mg/dl (1.7-2.4); Potassium 4.6 mmol/L (3.5-5.1)
[2021-09-12] MEDS: allopurinoL 100 MG TAB PO SCH (09:41)
[2021-09-12] MEDS: FAMOTIDINE 20 MG TAB PO SCH ×2 (09:41→20:34)
[2021-09-12] MEDS: METOPROLOL TARTRATE 50 MG TAB PO SCH ×2 (09:42→20:34)
[2021-09-12] MEDS: LOSARTAN POTASSIUM 25 MG TAB PO SCH (09:42)
[2021-09-12] MEDS: hydrALAZINE HCL 25 MG TAB PO SCH ×3 (09:42→20:34)
[2021-09-12] MEDS: DOCUSATE SODIUM 100 MG CAP PO SCH ×2 (09:42→20:34)
[2021-09-12] MEDS: ENOXAPARIN INJ 40 MG/0.4 ML SYR SQ SCH (13:50)
--- NOTE | 2021-09-12 15:10 | Hospitalist Progress Note ---
Date of Service September 12, 2021 Assessment & Plan (1) Acute on chronic respiratory failure with hypoxia: (2) COPD (chronic obstructive pulmonary disease): (3) Pneumonia: (4) Cerebrovascular disease: (5) Hypertension: (6) Chronic kidney disease, stage 3a: Plan: Acute on chronic respiratory failure with hypoxia due to Pneumonia and COPD - on 3-4 L oxygen at home but here unable to maintain saturation despite on max setting of high flow and BIPAP; ABG with hypoxia without hypercarbia, CXR with no new changes- no CHF; BNP normal. Not in respiratory distress despite hypoxia. - He doesn't want to be intubated. Code status changed to DNR/DNI after Dr Agrawal discussed with his Nereida. Discussed plan in detail with patient, and pulmonology. Continue supportive treatment for now with ABx, nebs, supplemental oxygen- If does not improve, likely transition to comfort measures. Palliative is yet to see him. He and were asking about going home- discussed with CM regarding hospice options. - CTA chest 2 days back with no PE, doubt PE at this point. Moreover, he is not stable enough to go for the CT with his tenuous respiratory status and inability to lie flat for the CT. He has bad lungs/severe COPD to begin with and current insult is making it harder to recover. - Pulm following H/o multiple CVA, h/o carotid artery intervention and CABG- continue plavix, statin, zetia CKD3a- Cr around baseline of 1.3-1.5 HTN- BP stable on Lopressor, losartan, hydralazine, amlodipine Hemoptysis- having intermittent episodes, seems mild, H&H stable. Likely from the pneumonia and coughing. Bronchoscopy not indicated and rather can be harmful at this point per pulm. Will monitor. Elevated trop- mildly elevated, likely demand isch from resp distress. Denies any chest pain, no ischemic EKG changes. DVT prophylaxis- sc lovenox- discontinue if more hemoptysis episodes Dispo- respiratory status not improving despite maximal noninvasive support- he is DNR/DNI- If he fails to improve, likely will be transitioned to comfort measures. Palliative eval pending. Discussed with CM regarding hospice options as they would like to return home. Admission and Anticipated Discharge Date Admission Date: September 10, 2021 Subjective Seen and examined at bedside multiple times today due to his tenuous respiratory status. This morning, it was difficulty to maintain his oxygen saturation despite being on max bipap settings- he was in low to mid 80s only- ABG showed hypoxia without hypercarbia, no acidosis. CXR showed no new changes other than bibasilar opacities. He looked comfortable and was not in any respiratory distress and did not complain of any shortness of breath. Pulmonology were at bedside during my two visits. Patient reiterated his DNI status to me and pulmonology. Dr Agrawal spoke to his Nereida and provided an update and outlined possible plan of care. If he does not improve, plan would be comfort measures and hence palliative has been consulted to assist. During my visit later today, his Nereida was at bedside. Stated he had couple more hemoptysis episodes- reiterated about risk/benefit of bronchoscopy at this point and pulmonology recommendation based on my conversation this morning. She stated his dizziness is much improved today. Patient was now on oxymask and saturating in mid 80s. He looked fairly comfortable. Stated he wanted to go home and Nereida agreed. Discussed our options about comfort measures, palliative and hospice. Will reach out to CM to discuss further. Physical Exam Physical Exam: General: Lying comfortably in bed, not in acute distress, on oxymask HEENT: EOMI, SMITA Chest: Diminished breath sounds bilaterally CVS: Regular rate and rhythm, normal heart sounds, no murmur Abdomen: Soft, non tender, not distended, normal bowel sounds Neuro: Awake, alert, oriented, conversing well, non focal Extremities: No cyanosis, clubbing or edema Results & Data Results & Data ([facility]) Vital Signs (Past 12 Hours) Vital Signs Temp Pulse Pulse Resp BP Pulse Ox 09/12/21 15:00 79 25 H 87 L 09/12/21 11:23 36.9 C 85 22 147/87 H 86 L 09/12/21 11:07 68 20 86 L 09/12/21 08:51 88 26 H 81 L 09/12/21 07:52 36.8 C 89 22 124/83 83 L 09/12/21 07:17 85 17 92 09/12/21 07:15 87 17 92 09/12/21 03:58 36.9 C 86 18 160/86 H 95 Laboratory Results Short CBC 09/12/21 Range/Units 08:17 WBC 13.97 H (4.8-10.8) K/uL Hgb 16.0 (14.0-18.0) g/dL Hct 48.5 (42-52) % Plt Count 164 (130-400) K/uL [facility] 09/12/21 08:17 Sodium 136 Potassium 4.6 Chloride 102 Carbon Dioxide 27 BUN 38 H Creatinine 1.64 H Glucose 139 H Calcium 9.6 Diagnostic Findings Chest X-Ray 09/12/21 08:07 SINGLE VIEW CHEST CLINICAL HISTORY: Hypoxia. FINDINGS: An AP, portable, upright chest radiograph is compared to chest x-ray and chest CT dated 09/10/2021. The patient is status post midline sternotomy. The heart is enlarged noting atherosclerotic calcification of the thoracic aorta. The pulmonary vasculature is noncongested. Emphysema and chronic interstitial thickening is similar to previous. Airspace consolidation is again seen at both lung bases. Question trace pleural effusion. No pneumothorax is seen. The skeletal structures are osteopenic. The bony thorax is grossly intact. IMPRESSION: 1. Cardiomegaly and emphysema with no radiographic evidence of congestive failure. 2. Bibasilar consolidation is unchanged from previous and suggests pneumonia/aspiration pneumonitis. Clinical correlation will be required and radiographic follow-up to resolution is recommended. 3. Question trace pleural effusions. ACT 112: Negative or not required by law. Electronically signed by: Lloyd Bryan M.D. 09/12/2021 8:34 AM Medications Administered Current Inpatient Medications Acetaminophen (Acetaminophen 325 Mg Tab) 650 mg PO Q4H PRN PRN Reason: Pain or Fever Stop: 10/10/21 12:41 Albuterol (Albut/Ipratrop 3mg/0.5mg Neb 3 Ml Vial) 3 ml NEB Q2R PRN; Protocol PRN Reason: Shortness Of Breath Or Wheezing Stop: 10/10/21 13:44 Albuterol (Albut/Ipratrop 3mg/0.5mg Neb 3 Ml Vial) 3 ml NEB QIDR [facility]; Protocol Stop: 10/10/21 14:59 Last Admin: 09/11/21 07:11 Dose: 3 ml Documented by: Allopurinol ([facility]op[facility] 100 Mg Tab) [facility]: 10/11/21 08:59 Last Admin: 09/12/21 09:41 Dose: 100 mg Documented by: Amlodipine Besylate (Amlodipine Besylate 5 Mg Tab) 10 mg PO HS [facility] Stop: 10/10/21 20:59 Last Admin: 09/11/21 21:14 Dose: 10 mg Documented by: Budesonide (Budesonide 0.5 Mg/2 Ml Vial (Pulmicort)) 1 mg NEB BIDR [facility] Stop: 10/11/21 09:09 Last Admin: 09/12/21 07:14 Dose: 1 mg Documented by: Clopidogrel Bisulfate (Clopidogrel Bisulfate 75 Mg Tab) 75 mg PO HS [facility] Stop: 10/10/21 20:59 Last Admin: 09/11/21 21:14 Dose: 75 mg Documented by: Docusate Sodium (Docusate Sodium 100 Mg Cap) 100 mg PO BID [facility] Stop: 10/10/21 20:59 Last Admin: 09/12/21 09:42 Dose: 100 mg Documented by: Ezetimibe (Ezetimibe 10 Mg Tablet) 10 mg PO [facility] Stop: 10/10/21 20:59 Last Admin: 09/11/21 21:13 Dose: 10 mg Documented by: Enoxaparin Sodium (Enoxaparin Inj 40 Mg/0.4 Ml Syr) 40 mg SQ Q24H [facility] Stop: 10/10/21 13:29 Last Admin: 09/12/21 13:50 Dose: 40 mg Documented by: Famotidine (Famotidine 20 Mg Tab) 20 mg PO BID [facility] Stop: 10/10/21 20:59 Last Admin: 09/12/21 09:41 Dose: 20 mg Documented by: Finasteride (Finasteride 5 Mg Tab) 5 mg PO [facility] Stop: 10/10/21 20:59 Last Admin: 09/11/21 21:13 Dose: 5 mg Documented by: Fluticasone/Vilanterol (Fluticasone/Vilanterol 200/25mcg 14 Puffs/Inhaler) 1 puffs INH DAILY [facility] Stop: 10/11/21 08:59 Last Admin: 09/11/21 10:47 Dose: Not Given Documented by: Formoterol Fumarate (Formoterol 20 Mcg/2 Ml Vial) 20 mcg NEB BIDR [facility] Stop: 10/11/21 09:14 Last Admin: 09/12/21 07:14 Dose: 20 mcg Documented by: Hydralazine HCl (Hydralazine Hcl 25 Mg Tab) 25 mg PO TID [facility] Stop: 10/10/21 13:59 Last Admin: 09/12/21 13:50 Dose: 25 mg Documented by: Piperacillin Sod/Tazobactam (Sod 4.5 gm/ Dextrose) 120 mls @ 30 mls/hr IV Q8H [facility]; Protocol Stop: 09/17/21 20:59 Last Admin: 09/12/21 13:54 Dose: 30 mls/hr Documented by: Losartan Potassium (Losartan Potassium 25 Mg Tab) 25 mg PO QAM [facility] Stop: 10/11/21 08:59 Last Admin: 09/12/21 09:42 Dose: 25 mg Documented by: Metoprolol Tartrate (Metoprolol Tartrate 50 Mg Tab) 50 mg PO BID [facility] Stop: 10/10/21 20:59 Last Admin: 09/12/21 09:42 Dose: 50 mg Documented by: Miscellaneous Information (Piperacill/Tazobac Consult Active) 1 ea N/A UD PRN PRN Reason: Consult Stop: 10/10/21 10:55 Pravastatin Sodium (Pravastatin Sod 40 Mg Tab) 40 mg PO [facility] Stop: 10/10/21 20:59 Last Admin: 09/11/21 21:12 Dose: 40 mg Documented by: Trazodone HCl (Trazodone Hcl 50 Mg Tab) 50 mg PO [facility] Stop: 10/10/21 20:59 Last Admin: 09/11/21 21:12 Dose: 50 mg Documented by: (1) COPD (chronic obstructive pulmonary disease) COPD type: unspecified COPD Qualified Code(s): J44.9 - Chronic obstructive pulmonary disease, unspecified (2) Hypertension Hypertension type: unspecified Qualified Code(s): I10 - Essential (primary) hypertension
[2021-09-12] MEDS: traZODone HCL 50 MG TAB PO SCH (20:34)
[2021-09-12] MEDS: CLOPIDOGREL BISULFATE 75 MG TAB PO SCH (20:34)
[2021-09-12] MEDS: FINASTERIDE 5 MG TAB PO SCH (20:35)
[2021-09-12] MEDS: PRAVASTATIN SOD 40 MG TAB PO SCH (20:35)
[2021-09-12] MEDS: amLODIPine BESYLATE 5 MG TAB PO SCH (20:35)
[2021-09-12] MEDS: EZETIMIBE 10 MG TABLET PO SCH (20:35)
--- NOTE | 2021-09-12 23:29 | Electrocardiogram Report ---
Test Reason : Blood Pressure : / mmHG Vent. Rate : 086 BPM Atrial Rate : 086 BPM P-R Int : 152 ms QRS Dur : 092 ms QT Int : 346 ms P-R-T Axes : 045 062 017 degrees QTc Int : 414 ms Normal sinus rhythm Low voltage QRS Poor R wave progression, consider anterior ID vs. lead placement vs. LVH When compared with ECG of 10-SEP-2021 06:03, No significant change was found Confirmed by Samuel Wallace ([id number] on 09/12/2021 11:28:54 PM Referred By: REFERRED SELF Confirmed By:Samuel Wallace
[2021-09-13] MEDS: PIPERACILLIN/TAZOBACTAM 4.5 GM in DEXTROSE 5% 100 ML IV SCH ×3 (05:25→20:41)
[2021-09-13 07:01] LABS: Basophils # (auto) 0.02 K/uL (0-0.2); Basophils % (auto) 0.2 %; Eosinophils % (auto) 0.9 %; Hematocrit (blood only) 49.4 % (42-52); Hemoglobin 15.6 g/dL (14.0-18.0); Immature Granulocytes # (auto) 0.04 K/uL (0.00-0.02); Immature Granulocytes % (auto) 0.4 %; Lymphocytes # (auto) 1.19 K/uL (1.2-3.4); Lymphocytes % (auto) 10.9 %; Mean Corpuscular Hemoglobin 30.8 pg (25-34); Mean Corpuscular Hgb Conc 31.6 g/dL (32-36); Mean Corpuscular Volume 97.6 fL (80-100); Monocytes % (auto) 14.7 %; Neutrophils # (auto) 7.95 K/uL (1.4-6.5); Neutrophils % (auto) 72.9 %; Platelet Count 146 K/uL (130-400); Platelet Estimate Decreased (Normal); RBC Morphology Unremarkable; RDW Coefficient of Variation 14.4 % (11.5-14.5); RDW Standard Deviation 51.3 fL (36.4-46.3); Red Blood Count 5.06 M/uL (4.7-6.1)
[2021-09-13 07:07] LABS: BUN Creatinine Ratio 21.5 (10-20); Calcium 9.3 mg/dl (8.5-10.1); Creatinine Clr Calc Pharmacy 42.2 ml/min; Est GFR (African American) 43.2 ml/min; Est GFR (Non-African American) 37.3 ml/min; Potassium 4.7 mmol/L (3.5-5.1)
[2021-09-13] MEDS: METOPROLOL TARTRATE 50 MG TAB PO SCH ×2 (07:14→20:39)
[2021-09-13] MEDS: allopurinoL 100 MG TAB PO SCH (07:15)
[2021-09-13] MEDS: FAMOTIDINE 20 MG TAB PO SCH ×2 (07:15→20:39)
[2021-09-13] MEDS: LOSARTAN POTASSIUM 25 MG TAB PO SCH (07:15)
[2021-09-13] MEDS: hydrALAZINE HCL 25 MG TAB PO SCH ×3 (07:15→20:39)
[2021-09-13] MEDS: DOCUSATE SODIUM 100 MG CAP PO SCH ×2 (07:15→20:39)
[2021-09-13] MEDS: FORMOTEROL 20 MCG/2 ML VIAL NEB SCH ×2 (07:21→19:06)
[2021-09-13] MEDS: BUDESONIDE 0.5 MG/2 ML VIAL (PULMICORT) NEB SCH ×2 (07:21→19:06)
--- NOTE | 2021-09-13 13:03 | Pulmonology Progress Note ---
Date of Service September 13, 2021 Assessment & Plan (1) Acute on chronic respiratory failure with hypoxia: (2) CAMILO (obstructive sleep apnea): (3) COPD (chronic obstructive pulmonary disease): COPD type: unspecified COPD Qualified Code(s): J44.9 - Chronic obstructive pulmonary disease, unspecified (4) Hypercapnic respiratory failure: (5) Hemoptysis: Plan: Impression: 71-year-old male with acute on chronic hypoxemic and hypercarbic respiratory failure and bibasilar infiltrates. He is being treated for pneumonia however he has been afebrile with a normal procalcitonin. After discussion with the patient's , it has been elected to pursue comfort measures. Unfortunately the patient's oxygen requirement would preclude him going home or even being transferred. Recommendations: 1. COPD: Continue Breo and prn duoneb. He is not bronchospastic currently so no indication for steroids. 2. Hypoxemic respiratory failure: Secondary to VQ mismatch as well as hypercarbia. Continue current level of care unless the family elects to pursue complete comfort care measures which would include decreasing the patient's oxygen delivery and medications to treat no dyspnea or shortness of breath. Would pursue a trial of diuretics until BUN and creatinine climb 3. Hypercarbic respiratory failure: Suspect obesity hypoventilation syndrome. He is not using noninvasive positive pressure ventilation currently. 4. Hemoptysis: Unclear based on history and review of the medical record if this was true hemoptysis or potential hematemesis. No recurrent events and chest x-ray unchanged from prior 5. Questionable pneumonia: The patient does have infiltrates but is afebrile. His white count is significantly decreased today. Cultures are showing no growth to date. D#4 zosyn. Of note the patient has demonstrated a persistent ESBL E. coli in his urine over time. I would favor discontinuation of antibiotics at this time but will defer to the primary service. 6. Elevated troponin: Management per primary service. Given the patient's underlying neurocognitive dysfunction, agree that intubation mechanical ventilation may not be in the patient's long-term best interest and agree with CODE STATUS as documented. Palliative care consultation pending. Thanks for the opportunity of participating in the care of this patient. Feel free to contact us with questions. We will continue to follow with you Admission and Anticipated Discharge Date Admission Date: September 10, 2021 Subjective Patient seen and examined. Discussed with at bedside as well as with his nurse. Patient is up to chair. He does report some mild shortness of breath. He is not coughing or expectorating phlegm. He denies chest pain or palpitations. Palliative care consultation has been ordered. Review of Systems Review of Systems: Unobtainable due to cognitive status Physical Exam Constitutional: WD/WN, vitals as above + morbidly obese; not in distress Neck: trachea midline, no thyromegaly Respiratory: no respiratory distress, no labored breathing and not tachypneic Auscultation: + diminished lung sounds; no crackles and no wheezes Cardiovascular: RRR, no murmur, no edema Gastrointestinal (Abdomen): normal bowel sounds, soft, nontender, no hepat osplenomegaly Musculoskeletal: Extremities: extremities normal to inspection Skin: no rashes, warm and dry Lymphatic: no cervical lymphadenopathy Results & Data Results & Data ([facility]) Vital Signs (Past 12 Hours) Vital Signs Temp Pulse Pulse Pulse Resp BP Pulse Ox 09/13/21 12:00 09/13/21 11:00 36.8 C 85 28 H 109/86 87 L 09/13/21 10:29 80 24 90 09/13/21 09:45 85 09/13/21 07:22 90 24 90 09/13/21 07:08 37.1 C 91 H 26 H 139/78 88 L 09/13/21 03:46 36.9 C 104 H 30 H 151/87 H 86 L 09/13/21 03:34 36.6 C 87 26 H 137/74 88 L 09/13/21 02:55 88 28 H 87 L Pulse Ox 09/13/21 12:00 87 L 09/13/21 11:00 09/13/21 10:29 09/13/21 09:45 09/13/21 07:22 09/13/21 07:08 09/13/21 03:46 09/13/21 03:34 09/13/21 02:55 Laboratory Results 09/13/21 06:05 09/13/21 06:05 Diagnostic Findings No new imaging PG Care Time/CCT Total # of Minutes Spent Total Time Spent with Patient: Total time spent is greater than 50% in coordination of care (as documented) at patient's floor/unit and/or counseling patient: Coding Level of Care Code 47566 Subseq Hosp Care Lvl 3 Diagnoses Acute on chronic respiratory failure with hypoxia J96.21 CAMILO (obstructive sleep apnea) G47.33 COPD (chronic obstructive pulmonary disease) J44.9 COPD type: unspecified COPD Hypercapnic respiratory failure J96.92 Hemoptysis R04.2
[2021-09-13] MEDS: ENOXAPARIN INJ 40 MG/0.4 ML SYR SQ SCH (13:27)
[2021-09-13] MEDS: FUROSEMIDE 40 MG/4 ML VIAL IV SCH (13:27)
--- NOTE | 2021-09-13 14:25 | Hospitalist Progress Note ---
Date of Service September 13, 2021 Assessment & Plan (1) Acute on chronic respiratory failure with hypoxia: (2) COPD (chronic obstructive pulmonary disease): (3) Pneumonia: (4) Cerebrovascular disease: (5) Hypertension: (6) Chronic kidney disease, stage 3a: Plan: Acute on chronic respiratory failure with hypoxia due to pneumonia and COPD - on 3-4 L oxygen at home but here unable to maintain adequate oxygen saturation despite on max setting of high flow and BIPAP and did not want intubation- hence elected for DNR/DNI 09/12 and supportive measures/comfort measures- Palliative yet to see him. ABG with hypoxia without hypercarbia, CXR with no new changes- no CHF; BNP normal. Not in respiratory distress despite hypoxia. - Continue oxygen, antibiotics D5/7, flutter valve. Leucocytosis resolved with ABx - Pulm following CT 09/10- 1. No CTA evidence for pulmonary embolus. 2. Confluent alveolar opacities at both lung bases, right greater than left with findings suspicious for bibasilar pneumonia. 3. Underlying COPD. CXR 09/11 1. Cardiomegaly and emphysema with no radiographic evidence of congestive failure. 2. Bibasilar consolidation is unchanged from previous and suggests pneumonia/aspiration pneumonitis. Clinical correlation will be required and radiographic follow-up to resolution is recommended. H/o multiple CVA, h/o carotid artery intervention and CABG- continue plavix, statin, zetia CKD3a- Cr around baseline of 1.3-1.6, relatively stable HTN- BP stable on Lopressor, losartan, hydralazine, amlodipine Hemoptysis- resolved. H&H stable Elevated trop- mildly elevated, likely demand isch from resp distress. Denies any chest pain, no ischemic EKG changes. DVT prophylaxis- sc lovenox Dispo- Continue supportive measures for now- if fails to improve, full comfort measures. Palliative eval pending. Admission and Anticipated Discharge Date Admission Date: September 10, 2021 Subjective No new issues. On HFNC and feels comfortable. Denies any chest pain, shortness of breath. States his hemoptysis has stopped. Vertigo resolved. He wants to go home but has significant oxygen requirement. He or does not want to get transferred to [place] anymore and would like to continue the care here. Physical Exam Physical Exam: General: Lying comfortably in bed, not in acute distress, on HFNC HEENT: EOMI, SMITA Chest: Diminished breath sounds bilaterally CVS: Regular rate and rhythm, normal heart sounds, no murmur Abdomen: Soft, non tender, not distended, normal bowel sounds Neuro: Awake, alert, oriented, conversing well, non focal Extremities: No cyanosis, clubbing or edema Results & Data Results & Data ([facility]) Vital Signs (Past 12 Hours) Vital Signs Temp Pulse Pulse Pulse Resp BP Pulse Ox 09/13/21 12:00 09/13/21 11:00 36.8 C 85 28 H 109/86 87 L 09/13/21 10:29 80 24 90 09/13/21 09:45 85 09/13/21 07:22 90 24 90 09/13/21 07:08 37.1 C 91 H 26 H 139/78 88 L 09/13/21 03:46 36.9 C 104 H 30 H 151/87 H 86 L 09/13/21 03:34 36.6 C 87 26 H 137/74 88 L 09/13/21 02:55 88 28 H 87 L Pulse Ox 09/13/21 12:00 87 L 09/13/21 11:00 09/13/21 10:29 09/13/21 09:45 09/13/21 07:22 09/13/21 07:08 09/13/21 03:46 09/13/21 03:34 09/13/21 02:55 Laboratory Results Short CBC 09/10/21 09/11/21 09/12/21 Range/Units 06:20 06:56 08:17 WBC (4.8-10.8) K/uL Hgb (14.0-18.0) g/dL Hct (42-52) % Plt Count (130-400) K/uL Creatinine 1.59 H 1.64 H 1.64 H (0.6-1.4) mg/dl 09/13/21 09/13/21 Range/Units 06:05 06:05 WBC 10.90 H (4.8-10.8) K/uL Hgb 15.6 (14.0-18.0) g/dL Hct 49.4 (42-52) % Plt Count 146 (130-400) K/uL Creatinine 1.77 H (0.6-1.4) mg/dl BMP 09/13/21 06:05 Sodium 135 L Potassium 4.7 Chloride 104 Carbon Dioxide 24 BUN 38 H Creatinine 1.77 H Glucose 110 H Calcium 9.3 Medications Administered Current Inpatient Medications Acetaminophen (Acetaminophen 325 Mg Tab) 650 mg PO Q4H PRN PRN Reason: Pain or Fever Stop: 10/10/21 12:41 Albuterol (Albut/Ipratrop 3mg/0.5mg Neb 3 Ml Vial) 3 ml NEB Q2R PRN; Protocol PRN Reason: Shortness Of Breath Or Wheezing Stop: 10/10/21 13:44 Albuterol (Albut/Ipratrop 3mg/0.5mg Neb 3 Ml Vial) 3 ml NEB QIDR NATALYA; Protocol Stop: 10/10/21 14:59 Last Admin: 09/11/21 07:11 Dose: 3 ml Documented by: Allopurinol (Allopurinol 100 Mg Tab) 100 mg PO QAM [facility] Stop: 10/11/21 08:59 Last Admin: 09/13/21 07:15 Dose: 100 mg Documented by: Amlodipine Besylate (Amlodipine Besylate 5 Mg Tab) [address] [facility] Stop: 10/10/21 20:59 Last Admin: 09/12/21 20:35 Dose: 10 mg Documented by: Budesonide (Budesonide 0.5 Mg/2 Ml Vial (Pulmicort)) 1 mg NEB BIDR [facility] Stop: 10/11/21 09:09 Last Admin: 09/13/21 07:21 Dose: 1 mg Documented by: Clopidogrel Bisulfate (Clopidogrel Bisulfate 75 Mg Tab) [address] [facility] Stop: 10/10/21 20:59 Last Admin: 09/12/21 20:34 Dose: 75 mg Documented by: Docusate Sodium (Docusate Sodium 100 Mg Cap) 100 mg PO BID [facility] Stop: 10/10/21 20:59 Last Admin: 09/13/21 07:15 Dose: 100 mg Documented by: Ezetimibe (Ezetimibe 10 Mg Tablet) [address] [facility] Stop: 10/10/21 20:59 Last Admin: 09/12/21 20:35 Dose: 10 mg Documented by: Enoxaparin Sodium (Enoxaparin Inj 40 Mg/0.4 Ml Syr) 40 mg SQ Q24H [facility] Stop: 10/10/21 13:29 Last Admin: 09/13/21 13:27 Dose: 40 mg Documented by: Famotidine (Famotidine 20 Mg Tab) 20 mg PO BID [facility] Stop: 10/10/21 20:59 Last Admin: 09/13/21 07:15 Dose: 20 mg Documented by: Finasteride (Finasteride 5 Mg Tab) 5 mg PO HS [facility] Stop: 10/10/21 20:59 Last Admin: 09/12/21 20:35 Dose: 5 mg Documented by: Fluticasone/Vilanterol (Fluticasone/Vilanterol 200/25mcg 14 Puffs/Inhaler) 1 puffs INH DAILY [facility] Stop: 10/11/21 08:59 Last Admin: 09/11/21 10:47 Dose: Not Given Documented by: Formoterol Fumarate (Formoterol 20 Mcg/2 Ml Vial) 20 mcg NEB BIDR [facility] Stop: 10/11/21 09:14 Last Admin: 09/13/21 07:21 Dose: 20 mcg Documented by: Furosemide (Furosemide 40 Mg/4 Ml Vial) 40 mg IV QAM [facility] Stop: 10/13/21 13:14 Last Admin: 09/13/21 13:27 Dose: 40 mg Documented by: Hydralazine HCl (Hydralazine Hcl 25 Mg Tab) 25 mg PO TID [facility] Stop: 10/10/21 13:59 Last Admin: 09/13/21 13:27 Dose: 25 mg Documented by: Piperacillin Sod/Tazobactam (Sod 4.5 gm/ Dextrose) 120 mls @ 30 mls/hr IV Q8H [facility]; Protocol Stop: 09/17/21 20:59 Last Admin: 09/13/21 13:27 Dose: 30 mls/hr Documented by: Losartan Potassium (Losartan Potassium 25 Mg Tab) 25 mg PO QAM [facility] Stop: 10/11/21 08:59 Last Admin: 09/13/21 07:15 Dose: 25 mg Documented by: Metoprolol Tartrate (Metoprolol Tartrate 50 Mg Tab) 50 mg PO BID [facility] Stop: 10/10/21 20:59 Last Admin: 09/13/21 07:14 Dose: 50 mg Documented by: Miscellaneous Information (Piperacill/Tazobac Consult Active) 1 ea N/A UD PRN PRN Reason: Consult Stop: 10/10/21 10:55 Pravastatin Sodium (Pravastatin Sod 40 Mg Tab) [address] [facility] Stop: 10/10/21 20:59 Last Admin: 09/12/21 20:35 Dose: 40 mg Documented by: Trazodone HCl (Trazodone Hcl 50 Mg Tab) [address] [facility] Stop: 10/10/21 20:59 Last Admin: 09/12/21 20:34 Dose: 50 mg Documented by: (1) COPD (chronic obstructive pulmonary disease) COPD type: unspecified COPD Qualified Code(s): J44.9 - Chronic obstructive pulmonary disease, unspecified (2) Hypertension Hypertension type: unspecified Qualified Code(s): I10 - Essential (primary) hypertension
[2021-09-13] MEDS: traZODone HCL 50 MG TAB PO SCH (20:38)
[2021-09-13] MEDS: EZETIMIBE 10 MG TABLET PO SCH (20:39)
[2021-09-13] MEDS: PRAVASTATIN SOD 40 MG TAB PO SCH (20:39)
[2021-09-13] MEDS: FINASTERIDE 5 MG TAB PO SCH (20:39)
[2021-09-13] MEDS: CLOPIDOGREL BISULFATE 75 MG TAB PO SCH (20:39)
[2021-09-13] MEDS: amLODIPine BESYLATE 5 MG TAB PO SCH (20:39)
[2021-09-14] MEDS: PIPERACILLIN/TAZOBACTAM 4.5 GM in DEXTROSE 5% 100 ML IV SCH ×3 (04:35→19:39)
[2021-09-14] MEDS: BUDESONIDE 0.5 MG/2 ML VIAL (PULMICORT) NEB SCH ×2 (07:09→19:06)
[2021-09-14] MEDS: FORMOTEROL 20 MCG/2 ML VIAL NEB SCH ×2 (07:09→19:06)
[2021-09-14] MEDS: FAMOTIDINE 20 MG TAB PO SCH ×2 (09:53→19:37)
[2021-09-14] MEDS: FUROSEMIDE 40 MG/4 ML VIAL IV SCH (09:53)
[2021-09-14] MEDS: hydrALAZINE HCL 25 MG TAB PO SCH ×3 (09:53→19:37)
[2021-09-14] MEDS: DOCUSATE SODIUM 100 MG CAP PO SCH ×2 (09:54→19:45)
[2021-09-14] MEDS: METOPROLOL TARTRATE 50 MG TAB PO SCH ×2 (09:54→19:38)
[2021-09-14] MEDS: allopurinoL 100 MG TAB PO SCH (09:54)
[2021-09-14] MEDS: LOSARTAN POTASSIUM 25 MG TAB PO SCH (09:54)
[2021-09-14 10:06] LABS: Basophils # (auto) 0.03 K/uL (0-0.2); Basophils % (auto) 0.3 %; Eosinophils # (auto) 0.13 K/uL (0-0.5); Eosinophils % (auto) 1.1 %; Hematocrit (blood only) 48.7 % (42-52); Immature Granulocytes # (auto) 0.06 K/uL (0.00-0.02); Immature Granulocytes % (auto) 0.5 %; Lymphocytes # (auto) 1.57 K/uL (1.2-3.4); Lymphocytes % (auto) 13.8 %; Mean Corpuscular Hemoglobin 30.9 pg (25-34); Mean Corpuscular Hgb Conc 32.9 g/dL (32-36); Mean Corpuscular Volume 94.2 fL (80-100); Mean Platelet Volume 9.6 fL (7.4-10.4); Monocytes # (auto) 1.89 K/uL (0.11-0.59); Monocytes % (auto) 16.7 %; Neutrophils # (auto) 7.66 K/uL (1.4-6.5); Neutrophils % (auto) 67.6 %; Platelet Count 185 K/uL (130-400); Red Blood Count 5.17 M/uL (4.7-6.1); White Blood Count 11.34 K/uL (4.8-10.8)
[2021-09-14 10:33] LABS: BUN Creatinine Ratio 19.1 (10-20); Calcium 9.7 mg/dl (8.5-10.1); Creatinine Clr Calc Pharmacy 40.9 ml/min; Est GFR (African American) 41.5 ml/min; Est GFR (Non-African American) 35.8 ml/min
--- NOTE | 2021-09-14 13:49 | Hospitalist Progress Note ---
Date of Service September 14, 2021 Assessment & Plan (1) Acute on chronic respiratory failure with hypoxia: (2) COPD (chronic obstructive pulmonary disease): (3) Pneumonia: (4) Cerebrovascular disease: (5) Hypertension: (6) Chronic kidney disease, stage 3a: Plan: Acute on chronic respiratory failure with hypoxia due to pneumonia and COPD - on 3-4 L oxygen at home but here unable to maintain adequate oxygen saturation despite on max setting of high flow and BIPAP and did not want intubation- hence elected for DNR/DNI 09/12 and supportive measures/comfort measures- Palliative yet to see him. ABG with hypoxia without hypercarbia, CXR with no new changes- no CHF; BNP normal. Not in respiratory distress despite hypoxia. - Continue oxygen, antibiotics . Leucocytosis almost resolved with ABx - Seen by pulm CT 09/10- 1. No CTA evidence for pulmonary embolus. 2. Confluent alveolar opacities at both lung bases, right greater than left with findings suspicious for bibasilar pneumonia. 3. Underlying COPD. CXR 09/11 1. Cardiomegaly and emphysema with no radiographic evidence of congestive failure. 2. Bibasilar consolidation is unchanged from previous and suggests pneumonia/aspiration pneumonitis. Clinical correlation will be required and radiographic follow-up to resolution is recommended. H/o multiple CVA, h/o carotid artery intervention and CABG- continue plavix, statin, zetia CKD3a- Cr around baseline of 1.3-1.6, relatively stable HTN- BP stable on Lopressor, losartan, hydralazine, amlodipine Hemoptysis- resolved. H&H stable Elevated trop- mildly elevated, likely demand isch from resp distress. Denies an y chest pain, no ischemic EKG changes. DVT prophylaxis- sc lovenox Dispo- Continue supportive measures for now- if fails to improve, full comfort measures. Palliative eval pending. Admission and Anticipated Discharge Date Admission Date: September 10, 2021 Subjective No new issues. Status quo. Feels okay. Denies any chest pain, shortness of breath. No fever or chills. Baseline mental status. Physical Exam Physical Exam: General: Lying comfortably in bed, not in acute distress, on HFNC HEENT: EOMI, SMITA Chest: Diminished breath sounds anteriorly CVS: Regular rate and rhythm, normal heart sounds, no murmur Abdomen: Soft, non tender, not distended, normal bowel sounds Neuro: Awake, alert, oriented, conversing well, non focal Extremities: No cyanosis, clubbing or edema Results & Data Results & Data ([facility]) Vital Signs (Past 12 Hours) Vital Signs Temp Pulse Pulse Resp BP Pulse Ox Pulse Ox 09/14/21 12:46 100 H 09/14/21 12:08 36.9 C 91 H 20 164/92 H 81 L 09/14/21 12:00 92 09/14/21 11:25 89 22 86 L 09/14/21 11:00 92 H 09/14/21 08:14 36.7 C 99 H 18 140/72 83 L 09/14/21 07:09 101 H 26 H 86 L 09/14/21 03:35 36.4 C L 86 27 H 140/80 87 L 09/14/21 02:42 86 22 89 L Laboratory Results Short CBC 09/14/21 Range/Units 09:20 WBC 11.34 H (4.8-10.8) K/uL Hgb 16.0 (14.0-18.0) g/dL Hct 48.7 (42-52) % Plt Count 185 (130-400) K/uL BMP 09/14/21 09:20 Sodium 137 Potassium 4.0 Chloride 98 Carbon Dioxide 28 BUN 35 H Creatinine 1.83 H Glucose 151 H Calcium 9.7 Medications Administered Current Inpatient Medications Acetaminophen (Acetaminophen 325 Mg Tab) 650 mg PO Q4H PRN PRN Reason: Pain or Fever Stop: 10/10/21 12:41 Albuterol (Albut/Ipratrop 3mg/0.5mg Neb 3 Ml Vial) 3 ml NEB Q2R PRN; Protocol PRN Reason: Shortness Of Breath Or Wheezing Stop: 10/10/21 13:44 Albuterol (Albut/Ipratrop 3mg/0.5mg Neb 3 Ml Vial) 3 ml NEB QIDR NATALYA; Protocol Stop: 10/10/21 14:59 Last Admin: 09/11/21 07:11 Dose: 3 ml Documented by: Allopurinol ([facility] 100 Mg Tab) [facility] Stop: 10/11/21 08:59 Last Admin: 09/14/21 09:54 Dose: 100 mg Documented by: Amlodipine Besylate (Amlodipine Besylate 5 Mg Tab) 10 mg PO HS NATAL[facility] Stop: 10/10/21 20:59 Last Admin: 09/13/21 20:39 Dose: 10 mg Documented by: Budesonide (Budesonide 0.5 Mg/2 Ml Vial (Pulmicort)) 1 mg NEB BIDR NATALYA Stop: 10/11/21 09:09 Last Admin: 09/14/21 07:09 Dose: 1 mg Documented by: Clopidogrel Bisulfate (Clopidogrel Bisulfate 75 Mg Tab) 75 mg PO [facility] Stop: 10/10/21 20:59 Last Admin: 09/13/21 20:39 Dose: 75 mg Documented by: Docusate Sodium (Docusate Sodium 100 Mg Cap) 100 mg PO BID [facility] Stop: 10/10/21 20:59 Last Admin: 09/14/21 09:54 Dose: 100 mg Documented by: Ezetimibe (Ezetimibe 10 Mg Tablet) 10 mg PO HS [facility] Stop: 10/10/21 20:59 Last Admin: 09/13/21 20:39 Dose: 10 mg Documented by: Enoxaparin Sodium (Enoxaparin Inj 40 Mg/0.4 Ml Syr) 40 mg SQ Q24H [facility] Stop: 10/10/21 13:29 Last Admin: 09/13/21 13:27 Dose: 40 mg Documented by: Famotidine (Famotidine 20 Mg Tab) 20 mg PO BID [facility] Stop: 10/10/21 20:59 Last Admin: 09/14/21 09:53 Dose: 20 mg Documented by: Finasteride (Finasteride 5 Mg Tab) 5 mg PO [facility] Stop: 10/10/21 20:59 Last Admin: 09/13/21 20:39 Dose: 5 mg Documented by: Fluticasone/Vilanterol (Fluticasone/Vilanterol 200/25mcg 14 Puffs/Inhaler) 1 puffs INH DAILY [facility] Stop: 10/11/21 08:59 Last Admin: 09/11/21 10:47 Dose: Not Given Documented by: Formoterol Fumarate (Formoterol 20 Mcg/2 Ml Vial) 20 mcg NEB BIDR NATALYA Stop: 10/11/21 09:14 Last Admin: 09/14/21 07:09 Dose: 20 mcg Documented by: Furosemide (Furosemide 40 Mg/4 Ml Vial) 40 mg IV QAM [facility] Stop: 10/13/21 13:14 Last Admin: 09/14/21 09:53 Dose: 40 mg Documented by: Hydralazine HCl (Hydralazine Hcl 25 Mg Tab) 25 mg PO TID [facility] Stop: 10/10/21 13:59 Last Admin: 09/14/21 09:53 Dose: 25 mg Documented by: Piperacillin Sod/Tazobactam (Sod 4.5 gm/ Dextrose) 120 mls @ 30 mls/hr IV Q8H [facility]; Protocol Stop: 09/17/21 20:59 Last Admin: 09/14/21 13:01 Dose: 30 mls/hr Documented by: Losartan Potassium (Losartan Potassium 25 Mg Tab) 25 mg PO QAM [facility] Stop: 10/11/21 08:59 Last Admin: 09/14/21 09:54 Dose: 25 mg Documented by: Metoprolol Tartrate (Metoprolol Tartrate 50 Mg Tab) 50 mg PO BID [facility] Stop: 10/10/21 20:59 Last Admin: 09/14/21 09:54 Dose: 50 mg Documented by: Miscellaneous Information (Piperacill/Tazobac Consult Active) 1 ea N/A UD PRN PRN Reason: Consult Stop: 10/10/21 10:55 Pravastatin Sodium (Pravastatin Sod 40 Mg Tab) 40 mg PO [facility] Stop: 10/10/21 20:59 Last Admin: 09/13/21 20:39 Dose: 40 mg Documented by: Trazodone HCl (Trazodone Hcl 50 Mg Tab) 50 mg PO [facility] Stop: 10/10/21 20:59 Last Admin: 09/13/21 20:38 Dose: 50 mg Documented by: (1) COPD (chronic obstructive pulmonary disease) COPD type: unspecified COPD Qualified Code(s): J44.9 - Chronic obstructive pulmonary disease, unspecified (2) Hypertension Hypertension type: unspecified Qualified Code(s): I10 - Essential (primary) hypertension
[2021-09-14] MEDS: ENOXAPARIN INJ 40 MG/0.4 ML SYR SQ SCH (14:30)
[2021-09-14] MEDS: FINASTERIDE 5 MG TAB PO SCH (19:37)
[2021-09-14] MEDS: EZETIMIBE 10 MG TABLET PO SCH (19:37)
[2021-09-14] MEDS: CLOPIDOGREL BISULFATE 75 MG TAB PO SCH (19:37)
[2021-09-14] MEDS: traZODone HCL 50 MG TAB PO SCH (19:37)
[2021-09-14] MEDS: amLODIPine BESYLATE 5 MG TAB PO SCH (19:37)
[2021-09-14] MEDS: PRAVASTATIN SOD 40 MG TAB PO SCH (19:38)
[2021-09-15] MEDS: PIPERACILLIN/TAZOBACTAM 4.5 GM in DEXTROSE 5% 100 ML IV SCH (05:06)
[2021-09-15] MEDS: BUDESONIDE 0.5 MG/2 ML VIAL (PULMICORT) NEB SCH ×2 (07:10→19:03)
[2021-09-15] MEDS: FORMOTEROL 20 MCG/2 ML VIAL NEB SCH ×2 (07:10→19:03)
--- NOTE | 2021-09-15 08:59 | Pulmonology Progress Note ---
Date of Service September 15, 2021 Assessment & Plan (1) Acute on chronic respiratory failure with hypoxia: (2) CAMILO (obstructive sleep apnea): (3) COPD (chronic obstructive pulmonary disease): COPD type: unspecified COPD Qualified Code(s): J44.9 - Chronic obstructive pulmonary disease, unspecified (4) Hypercapnic respiratory failure: (5) Hemoptysis: Plan: Impression: 71-year-old male with acute on chronic hypoxemic and hypercarbic respiratory failure and bibasilar infiltrates. He is being treated for pneumonia however he has been afebrile with a normal procalcitonin. After discussion with the patient's , it has been elected to pursue comfort measures. Unfortunately the patient's oxygen requirement would preclude him going home or even being transferred. He is not making much clinical progress. Recommendations: 1. COPD: Transition to Perforomist and budesonide given potential difficulty with MDI technique. Continue prn duoneb. He is not bronchospastic currently so no indication for steroids. 2. Hypoxemic respiratory failure: Secondary to VQ mismatch as well as hypercarbia. Continue current level of care unless the family elects to pursue complete comfort care measures which would include decreasing the patient's oxygen delivery and medications to treat no dyspnea or shortness of breath. Would pursue a trial of diuretics until BUN and creatinine climb. Additional recommendations including echo with bubble study to evaluate for ASD/PFO may be excessive in this 71-year-old with significant cognitive dysfunction 3. Hypercarbic respiratory failure: Suspect obesity hypoventilation syndrome. He is not using noninvasive positive pressure ventilation currently. 4. Hemoptysis: Unclear based on history and review of the medical record if thi s was true hemoptysis or potential hematemesis. No recurrent events and chest x-ray unchanged from prior. No evidence of recurrence. 5. Questionable pneumonia: The patient does have infiltrates but is afebrile. His white count is significantly decreased today. Cultures are showing no growth to date. D#6 zosyn. Of note the patient has demonstrated a persistent ESBL E. coli in his urine over time. Antibiotics will be discontinued at this point time as he is completed a full course with negative cultures 6. Elevated troponin: Management per primary service. Given the patient's underlying neurocognitive dysfunction, agree that intubation mechanical ventilation may not be in the patient's long-term best interest and agree with CODE STATUS as documented. Palliative care consultation pending. Patient appears clinically stagnant at this point time. Unclear if any of this is reversible. Awaiting palliative care discussions. Thanks for the opportunity of participating in the care of this patient. Feel free to contact us with questions. We will continue to follow with you Admission and Anticipated Discharge Date Admission Date: September 10, 2021 Subjective Patient seen and examined. EMR reviewed. The patient is again supine in bed. He does not appear in any acute distress. His oxygen saturations are better on max heated high flow. He does not report any cough or chest pain. Review of Systems Review of Systems: Unobtainable due to cognitive status Physical Exam Constitutional: WD/WN, vitals as above + morbidly obese; not in distress Neck: trachea midline, no thyromegaly Respiratory: no respiratory distress, no labored breathing and not tachypneic Auscultation: + diminished lung sounds; no crackles and no wheezes Cardiovascular: RRR, no murmur, no edema Gastrointestinal (Abdomen): normal bowel sounds, soft, nontender, no hepatosplenomegaly Musculoskeletal: Extremities: extremities normal to inspection Skin: no rashes, warm and dry Lymphatic: no cervical lymphadenopathy Results & Data Results & Data ([facility]) Vital Signs (Past 12 Hours) Vital Signs Temp Pulse Pulse Resp BP Pulse Ox 09/15/21 07:53 104 H 09/15/21 07:40 36.9 C 108 H 21 126/83 84 L 09/15/21 07:11 101 H 20 90 09/15/21 03:38 37.1 C 93 H 30 H 139/70 88 L 09/15/21 02:27 81 30 H 87 L 09/14/21 23:08 37.6 C H 93 H 28 H 121/69 91 09/14/21 22:20 97 H 09/14/21 22:10 98 H 24 87 L Laboratory Results 09/14/21 09:20 09/14/21 09:20 Diagnostic Findings No new imaging PG Care Time/CCT Total # of Minutes Spent Total Time Spent with Patient: Total time spent is greater than 50% in coordination of care (as documented) at patient's floor/unit and/or counseling patient: Coding Level of Care Code 30407 Subseq Hosp Care Lvl 2 Diagnoses Acute on chronic respiratory failure with hypoxia J96.21 CAMILO (obstructive sleep apnea) G47.33 COPD (chronic obstructive pulmonary disease) J44.9 COPD type: unspecified COPD Hypercapnic respiratory failure J96.92 Hemoptysis R04.2
[2021-09-15] MEDS: allopurinoL 100 MG TAB PO SCH (09:20)
[2021-09-15] MEDS: DOCUSATE SODIUM 100 MG CAP PO SCH ×2 (09:20→20:25)
[2021-09-15] MEDS: hydrALAZINE HCL 25 MG TAB PO SCH ×3 (09:20→20:27)
[2021-09-15] MEDS: FAMOTIDINE 20 MG TAB PO SCH ×2 (09:20→20:25)
[2021-09-15] MEDS: LOSARTAN POTASSIUM 25 MG TAB PO SCH (09:20)
[2021-09-15] MEDS: METOPROLOL TARTRATE 50 MG TAB PO SCH ×2 (09:21→20:27)
[2021-09-15] MEDS: FUROSEMIDE 40 MG/4 ML VIAL IV SCH (09:21)
--- NOTE | 2021-09-15 11:44 | Hospitalist Progress Note ---
Date of Service September 15, 2021 Assessment & Plan (1) Acute on chronic respiratory failure with hypoxia: (2) COPD (chronic obstructive pulmonary disease): (3) Pneumonia: (4) Cerebrovascular disease: (5) Hypertension: (6) Chronic kidney disease, stage 3a: Plan: Acute on chronic respiratory failure with hypoxia due to pneumonia and COPD - on 3-4 L oxygen at home but here unable to maintain adequate oxygen saturation despite on max setting of high flow and BIPAP and did not want intubation- hence elected for DNR/DNI 09/12 and supportive measures/comfort measures- Palliative yet to see him. ABG with hypoxia without hypercarbia, CXR with no new changes- no CHF; BNP normal. Not in respiratory distress despite hypoxia. - Continue oxygen, antibiotics D5/7, nebs. Leucocytosis almost resolved with ABx - Pulm following CT 09/10- 1. No CTA evidence for pulmonary embolus. 2. Confluent alveolar opacities at both lung bases, right greater than left with findings suspicious for bibasilar pneumonia. 3. Underlying COPD. CXR 09/11 1. Cardiomegaly and emphysema with no radiographic evidence of congestive failure. 2. Bibasilar consolidation is unchanged from previous and suggests pneumonia/aspiration pneumonitis. Clinical correlation will be required and radiographic follow-up to resolution is recommended. H/o multiple CVA, h/o carotid artery intervention and CABG- continue plavix, statin, zetia CKD3a- Cr around baseline of 1.3-1.6, relatively stable HTN- BP stable on Lopressor, losartan, hydralazine, amlodipine Hemoptysis- resolved. H&H stable Elevated trop- mildly elevated, likely demand isch from resp distress. Denies any chest pain, no ischemic EKG changes. DVT prophylaxis- sc lovenox Dispo- Continue supportive measures for now- if fails to improve, full comfort measures. Palliative eval pending. Admission and Anticipated Discharge Date Admission Date: September 10, 2021 Subjective No new issues. He feels fine. States breathing is okay. Denies any chest pain, shortness of breath. States he feels like he is going to have a bowel movement and asking for help. Physical Exam Physical Exam: General: Lying comfortably in bed, not in acute distress, on HFNC HEENT: EOMI, SMITA Chest: Diminished breath sounds anteriorly CVS: Regular rate and rhythm, normal heart sounds, no murmur Abdomen: Soft, non tender, not distended, normal bowel sounds Neuro: Awake, alert, oriented, conversing well, non focal Extremities: No cyanosis, clubbing or edema Results & Data Results & Data ([facility]) Vital Signs (Past 12 Hours) Vital Signs Temp Pulse Pulse Resp BP Pulse Ox 09/15/21 07:53 104 H 09/15/21 07:40 36.9 C 108 H 21 126/83 84 L 09/15/21 07:11 101 H 20 90 09/15/21 03:38 37.1 C 93 H 30 H 139/70 88 L 09/15/21 02:27 81 30 H 87 L (1) COPD (chronic obstructive pulmonary disease) COPD type: unspecified COPD Qualified Code(s): J44.9 - Chronic obstructive pulmonary disease, unspecified (2) Hypertension Hypertension type: unspecified Qualified Code(s): I10 - Essential (primary) hypertension
[2021-09-15] MEDS: ENOXAPARIN INJ 40 MG/0.4 ML SYR SQ SCH (14:44)
[2021-09-15] MEDS: PRAVASTATIN SOD 40 MG TAB PO SCH (20:23)
[2021-09-15] MEDS: traZODone HCL 50 MG TAB PO SCH (20:24)
[2021-09-15] MEDS: CLOPIDOGREL BISULFATE 75 MG TAB PO SCH (20:24)
[2021-09-15] MEDS: amLODIPine BESYLATE 5 MG TAB PO SCH (20:26)
[2021-09-15] MEDS: EZETIMIBE 10 MG TABLET PO SCH (20:26)
[2021-09-15] MEDS: FINASTERIDE 5 MG TAB PO SCH (20:26)
[2021-09-16] MEDS: FORMOTEROL 20 MCG/2 ML VIAL NEB SCH ×2 (07:16→20:01)
[2021-09-16] MEDS: BUDESONIDE 0.5 MG/2 ML VIAL (PULMICORT) NEB SCH ×2 (07:16→20:00)
[2021-09-16] MEDS: DOCUSATE SODIUM 100 MG CAP PO SCH ×2 (07:53→20:24)
[2021-09-16] MEDS: METOPROLOL TARTRATE 50 MG TAB PO SCH ×3 (07:54→20:32)
[2021-09-16] MEDS: LOSARTAN POTASSIUM 25 MG TAB PO SCH (08:03)
[2021-09-16] MEDS: hydrALAZINE HCL 25 MG TAB PO SCH ×3 (08:11→20:32)
[2021-09-16] MEDS: allopurinoL 100 MG TAB PO SCH (08:12)
[2021-09-16] MEDS: FUROSEMIDE 40 MG/4 ML VIAL IV SCH (08:12)
[2021-09-16] MEDS: FAMOTIDINE 20 MG TAB PO SCH ×2 (08:12→20:28)
--- NOTE | 2021-09-16 09:53 | Hospitalist Progress Note ---
Date of Service September 16, 2021 Assessment & Plan (1) Acute on chronic respiratory failure with hypoxia: (2) COPD (chronic obstructive pulmonary disease): (3) Pneumonia: (4) Cerebrovascular disease: (5) Hypertension: (6) Chronic kidney disease, stage 3a: Plan: Acute on chronic respiratory failure with hypoxia due to pneumonia and COPD - on 3-4 L oxygen at home but here unable to maintain adequate oxygen saturation despite on max setting of high flow and BIPAP and did not want intubation- hence elected for DNR/DNI 09/12 and supportive measures/comfort measures- Palliative yet to see him. ABG with hypoxia without hypercarbia, CXR with no new changes- no CHF; BNP normal. Not in respiratory distress despite hypoxia. - Patient was on zosyn, discontinued yesterday by Dr Hyde- he completed 5 day course. - Continue oxygen, nebs. - Pulm following - Palliative seeing him today CT 09/10- 1. No CTA evidence for pulmonary embolus. 2. Confluent alveolar opacities at both lung bases, right greater than left with findings suspicious for bibasilar pneumonia. 3. Underlying COPD. CXR 09/11 1. Cardiomegaly and emphysema with no radiographic evidence of congestive failure. 2. Bibasilar consolidation is unchanged from previous and suggests pn eumonia/aspiration pneumonitis. Clinical correlation will be required and radiographic follow-up to resolution is recommended. H/o multiple CVA, h/o carotid artery intervention and CABG- continue plavix, statin, zetia CKD3a- Cr around baseline of 1.3-1.6, relatively stable HTN- BP stable on Lopressor, losartan, hydralazine, amlodipine- parameters adjusted as BP soft Hemoptysis- resolved. H&H stable Elevated trop- mildly elevated, likely demand isch from resp distress. Denies any chest pain, no ischemic EKG changes. DVT prophylaxis- sc lovenox Dispo- Continue supportive measures for now- if fails to improve, full comfort measures. Palliative eval pending. Updated at bedside Admission and Anticipated Discharge Date Admission Date: September 10, 2021 Subjective Overnight events noted. States he had to have a bowel movement last night prompting the event. He is agreeable to adding more laxative to make it easy to have a bowel movement so he does not have to strain. Denies any other new issues. Denies any chest pain, shortness of breath. Physical Exam Physical Exam: General: Lying comfortably in bed, not in acute distress, on HFNC HEENT: EOMI, SMITA Chest: Diminished breath sounds anteriorly CVS: Regular rate and rhythm, normal heart sounds, no murmur Abdomen: Soft, non tender, not distended, normal bowel sounds Neuro: Awake, alert, oriented, conversing well, non focal Extremities: No cyanosis, clubbing or edema Results & Data Results & Data ([facility]) Vital Signs (Past 12 Hours) Vital Signs Temp Pulse Pulse Resp BP Pulse Ox 09/16/21 07:56 36.8 C 102 H 22 108/77 98 09/16/21 07:35 101 H 24 96 09/16/21 04:05 37 C 102 H 28 H 97/62 L 90 09/16/21 03:40 29 H 54 L 09/16/21 01:20 90 22 71 L 09/15/21 23:59 37.1 C 84 20 94/52 L 88 L 09/15/21 22:22 106 H 24 88 L Medications Administered Current Inpatient Medications Acetaminophen (Acetaminophen 325 Mg Tab) 650 mg PO Q4H PRN PRN Reason: Pain or Fever Stop: 10/10/21 12:41 Last Admin: 09/15/21 20:31 Dose: 650 mg Documented by: Albuterol (Albut/Ipratrop 3mg/0.5mg Neb 3 Ml Vial) 3 ml NEB Q2R PRN; Protocol PRN Reason: Shortness Of Breath Or Wheezing Stop: 10/10/21 13:44 Albuterol (Albut/Ipratrop 3mg/0.5mg Neb 3 Ml Vial) 3 ml NEB QIDR NATALYA; Protocol Stop: 10/10/21 14:59 Last Admin: 09/11/21 07:11 Dose: 3 ml Documented by: Allopurinol (Allopurinol 100 Mg Tab) 100 mg PO QAM [facility] Stop: 10/11/21 08:59 Last Admin: 09/16/21 08:12 Dose: 100 mg Documented by: Amlodipine Besylate (Amlodipine Besylate 5 Mg Tab) 10 mg PO HS [facility] Stop: 10/10/21 20:59 Last Admin: 09/15/21 20:26 Dose: 10 mg Documented by: Budesonide (Budesonide 0.5 Mg/2 Ml Vial (Pulmicort)) 1 mg NEB BIDR NATALYA Stop: 10/11/21 09:09 Last Admin: 09/16/21 07:16 Dose: 1 mg Documented by: Clopidogrel Bisulfate (Clopidogrel Bisulfate 75 Mg Tab) 75 mg PO HS NATALYA Stop: 10/10/21 20:59 Last Admin: 09/15/21 20:24 Dose: 75 mg Documented by: Docusate Sodium (Docusate Sodium 100 Mg Cap) 100 mg PO BID NATALYA Stop: 10/10/21 20:59 Last Admin: 09/16/21 07:53 Dose: Not Given Documented by: Ezetimibe (Ezetimibe 10 Mg Tablet) 10 mg PO HS NATALYA Stop: 10/10/21 20:59 Last Admin: 09/15/21 20:26 Dose: 10 mg Documented by: Enoxaparin Sodium (Enoxaparin Inj 40 Mg/0.4 Ml Syr) 40 mg SQ Q24H NATALYA Stop: 10/10/21 13:29 Last Admin: 09/15/21 14:44 Dose: 40 mg Documented by: Famotidine (Famotidine 20 Mg Tab) 20 mg PO BID NATALYA Stop: 10/10/21 20:59 Last Admin: 09/16/21 08:12 Dose: 20 mg Documented by: Finasteride (Finasteride 5 Mg Tab) 5 mg PO HS [facility] Stop: 10/10/21 20:59 Last Admin: 09/15/21 20:26 Dose: 5 mg Documented by: Fluticasone/Vilanterol (Fluticasone/Vilanterol 200/25mcg 14 Puffs/Inhaler) 1 puffs INH DAILY NATALYA Stop: 10/11/21 08:59 Last Admin: 09/11/21 10:47 Dose: Not Given Documented by: Formoterol Fumarate (Formoterol 20 Mcg/2 Ml Vial) 20 mcg NEB BIDR NATALYA Stop: 10/11/21 09:14 Last Admin: 09/16/21 07:16 Dose: 20 mcg Documented by: Furosemide (Furosemide 40 Mg/4 Ml Vial) 40 mg IV QAM NATALYA Stop: 10/13/21 13:14 Last Admin: 09/16/21 08:12 Dose: 40 mg Documented by: Hydralazine HCl (Hydralazine Hcl 25 Mg Tab) 25 mg PO TID NATALYA Stop: 10/10/21 13:59 Last Admin: 09/16/21 08:11 Dose: 25 mg Documented by: Losartan Potassium (Losartan Potassium 25 Mg Tab) [facility] [place]: 10/11/21 08:59 Last Admin: 09/16/21 08:03 Dose: Not Given Documented by: Metoprolol Tartrate (Metoprolol Tartrate 50 Mg Tab) 50 mg PO BID [facility] Stop: 10/10/21 20:59 Last Admin: 09/16/21 08:11 Dose: 50 mg Documented by: Polyethylene Glycol (Polyethylene (Miralax) 17 Gm Pack) 17 gm PO DAILY [facility] Stop: 10/16/21 09:59 Pravastatin Sodium (Pravastatin Sod 40 Mg Tab) 40 mg PO [facility] Stop: 10/10/21 20:59 Last Admin: 09/15/21 20:23 Dose: 40 mg Documented by: Trazodone HCl (Trazodone Hcl 50 Mg Tab) 50 mg PO [facility] Stop: 10/10/21 20:59 Last Admin: 09/15/21 20:24 Dose: 50 mg Documented by: (1) COPD (chronic obstructive pulmonary disease) COPD type: unspecified COPD Qualified Code(s): J44.9 - Chronic obstructive pulmonary disease, unspecified (2) Hypertension Hypertension type: unspecified Qualified Code(s): I10 - Essential (primary) hypertension
--- NOTE | 2021-09-16 10:04 | Palliative Care Consultation ---
Date of Consultation September 16, 2021 Assessment & Plan (1) Palliative care encounter: Mr. Cardona is a 71 year old male who presented to the [facility] with worsening SOB. He is closely followed by outpatient Pulmonary and was last seen on August 19. A CT scan was obtained and results indicated a 6.7 cm mass and a 5 mm OCTAVIO and 7 mm LLL pulmonary nodules. This individual has a PMH that includes: COPD O2 dependent on 4LNC at home, multiple CVA's with the last occurring in 2016, HTN, CKD3, and CAD s/p carotidectomy, and renal agenesis. The patient has not shown progression with the course of Augmentin that he was on and is now on high FiO2 with HFNC. Patient has refused Bipap. Palliative Medicine was consulted to discuss overall goals of care. I met with Donell Case" and his , Nereida, at his bedside in room 208. The patient was resting, watching TV and using accessory muscles to breathe as I entered the room. He is on High Flow Nasal Canula with 60L and an FiO2 of 100%. Karlos was able to speak in full sentences and was able to tell me what was going on with him medically to a degree. He does have vascular dementia, along with some aphagia from previous (five) strokes that he has. His , Nereida, was a better historian, but Karlos was able to communicate and bring meaningful conversation to the table. I asked him some hard questions related to how he felt like things were going and if he was scared of dying. He mentioned the time that he underwent a carotidectomy and post operatively did poorly, resulting in him being intubated. he described that he '' during that procedure and was told ' to come back', but he said he was not fearful of what he saw, he described it as 'bliss'. His discussed numerous trips that they have been on ([place], [place], [place]) and said that they have done quite a bit. They have 3 adult children: Tanya ([facility]), Wandy ([place]), and Leslie ([place]) and a total of 12 grandchildren and 1 great-grandchild. He said that watching the [employer] and spending time with his family is what brings him most maria e. We discussed transitioning to comfort measures and what that looks like. He is not quite ready to transition fully as he would like to continue taking his medications and remain on high flow; however, is comfortable with avoiding further lab testing. Confirmed that we can transition at any time he is ready as he is still awake, alert, and interactive. We discussed having Roxanol on board to trial and see how he responds to it, PRN to assist with air hunger. Both he and his are willing to have that ordered. He is waiting to see some more family today. His asked about the reality of her taking him home with hospice and, unfortunately, due to the high oxygen requirements, he would need to be at 10L for a stable discharge, and, unfortunately, I do not see this as a possibility at this time. Confirmed that in the event of decline, no escalation of care and transition to comfort measures would be supported by both him and his . For now, continue with supportive treatment, including HFNC. I will see them tomorrow and continue to assist with goals of care and eventual transition to comfort measures. (2) COPD (chronic obstructive pulmonary disease): COPD type: unspecified COPD Qualified Code(s): J44.9 - Chronic obstructive pulmonary disease, unspecified (3) Pulmonary nodule: (4) Stroke: (5) Hypoxia: History of Present Illness Reason for Consultation: goals of care Requesting Physician: Dr. Roche Attending Physician: Khari Roche MD History of Present Illness Mr. Cardona is a 71 year old male who presented to the [facility] with worsening SOB. He is closely followed by outpatient Pulmonary and was last seen on August 19. A CT scan was obtained and results indicated a 6.7 cm mass and a 5 mm OCTAVIO and 7 mm LLL pulmonary nodules. This individual has a PMH that includes: COPD O2 dependent on 4LNC at home, multiple CVA's with the last occurring in 2016, HTN, CKD3, and CAD s/p carotidectomy. The patient has not shown progression with the course of Augmentin that he was on and is now on high FiO2 with HFNC. Patient has refused Bipap. Palliative Medicine was consulted to discuss overall goals of care. Please see A/P for further details. Thanks for involving Palliative Medicine with this individual. Allergies Allergy/AdvReac Type Severity Reaction Status Date / Time aspirin AdvReac Intermediate RELAXES Verified 09/10/21 07:38 RECTUM atorvastatin AdvReac Intermediate RELAXED Verified 09/10/21 07:38 RECTAL SPHINCTER Home Medications Medication Instructions Recorded Confirmed Type allopurinol 100 mg tablet 100 mg PO QAM 07/13/18 09/10/21 History clopidogrel 75 mg tablet 75 mg PO HS 07/13/18 09/10/21 History famotidine 20 mg tablet 20 mg PO BID 07/13/18 09/10/21 History metoprolol tartrate 50 mg tablet 50 mg PO BID 07/13/18 09/10/21 History pravastatin 40 mg tablet 40 mg PO HS 07/13/18 09/10/21 History trazodone 50 mg tablet 50 mg PO HS 07/13/18 09/10/21 History amlodipine 10 mg tablet (Norvasc) 10 mg PO HS 10/13/18 09/10/21 History multivitamin with minerals 1 tab PO QAM 11/15/19 09/10/21 History (Hair,Skin and Nails) ipratropium 0.5 mg-albuterol 3 mg 3 ml INHALATION Q4H PRN #180 ml 08/14/20 09/10/21 Rx (2.5 mg base)/3 mL nebulization soln docusate sodium 100 mg capsule 100 mg PO BID #60 cap 11/22/20 09/10/21 Rx (Colace) fluticasone 113 mcg-salmeterol 14 1 inh INHALATION BID 11/22/20 09/10/21 History mcg/actuation breath activated powdr hydralazine 25 mg tablet 25 mg PO TID 11/26/20 09/10/21 History Flutter Valve #1 ea 08/19/21 08/19/21 Rx ezetimibe 10 mg tablet (Zetia) 10 mg PO HS 09/10/21 09/10/21 History finasteride 5 mg tablet (Proscar) 5 mg PO HS 09/10/21 09/10/21 History losartan 25 mg tablet 25 mg PO QAM 09/10/21 09/10/21 History magnesium 250 mg tablet 0 mg PO QAM 09/10/21 09/10/21 History multivitamin with iron-mineral 1 tab PO DAILY 09/10/21 09/10/21 History ondansetron 4 mg disintegrating 4 mg PO TID PRN 09/10/21 09/10/21 History tablet tiotropium bromide 18 mcg capsule 1 cap INHALATION QAM 09/10/21 09/10/21 History with inhalation device (Spiriva with HandiHaler) Patient History Medical History (Updated 09/16/21 @ 12:54 by TONNY Steve) BPH with obstruction/lower urinary tract symptoms Carotid artery disease 2004-left CEA 2008-redo left CEA 2012-right carotid artery stent 2015-common carotid artery to internal carotid artery bypass Cerebrovascular disease s/p multiple ischemic strokes Chronic kidney disease, stage 3a COPD (chronic obstructive pulmonary disease) Coronary artery disease s/p CABG Dyslipidemia Gout Hearing deficit History of bronchitis History of intracranial hemorrhage parenchymal hemorrhage perioperatively during / after carotid surgery Hypertension Hypoxia On anticoagulant therapy plavix daily On home oxygen therapy Palliative care encounter Peripheral vascular disease Pulmonary nodule CXR [facility] 07/03/18: 1.3 cm right midlung nodule, slightly enlarged compared to 04/18/15. F/U with CT recommended. SBO (small bowel obstruction) Sepsis hx of Solitary kidney atrophic left kidney, nephrectomy performed for hypertension Stroke x5---per has aphasia, right arm weakness/loss of peripheral vision Tracheomalacia UTI (urinary tract infection) due to Enterococcus Vitamin D deficiency Surgical History History of bronchoscopy x2 History of cardiac cath x2----no stents History of colonoscopy History of tooth extraction all upper teeth Status post abdominal aortic aneurysm (AAA) repair Aortic dissection secondary to cardiac cath, s/p [id number] bypass graft and right renal bypass Status post carotid endarterectomy 09/30/2013--left @ [facility] Status post coronary artery bypass graft 1998 @ [facility] Status post nephrectomy left atrophic, nonfunctional associated with hypertension Status post transurethral resection of prostate Family History Sister Family history of diabetes mellitus Diabetes Brother Family history of diabetes mellitus Diabetes Heart disease Hypertension Other No family history of adverse response to anesthesia Social History Smoking Status: Former smoker Tobacco Type: Cigarettes Cigarettes Per Day: 20-40; Second Hand Exposure: No; Hx Alcohol Use: No Hx Substance Use: No Preferred Language: Nepalese Communication Ability: Effective Visual Impairment: No Limitations Hearing Ability: Normal [employer] Director Required: No Beliefs That Will Affect Care: None marital status: Current Living Situation: Spouse Current Living Situation Comment: with and sister current occupational status: retired Feels Safe at Home: Yes Assistive Devices: Wheelchair Review of Systems Review of Systems: [place] [facility] Assessment Scale: Pain: 0/3 SOB: 1/3 Tiredness: 0/3 Lack of Appetite: 1/3 Palliative Performance Scale: 30% Physical Exam Constitutional: + frail appearing, + disheveled, cooperative and comfortable ENMT: Mouth: + dry oral mucous membranes Respiratory: + uses accessory muscles (diaphragmatic muscles ), + cough and able to speak in complete sentences Auscultation: + diminished lung sounds Cardiovascular: Rate/Rhythm: regular rate and regular rhythm Heart Sounds: normal S1 and normal S2 Extremities: normal capillary refill; no pedal edema Gastrointestinal (Abdomen): Inspection/Auscultation: abdomen normal to inspection Percussion/Palpation: abdomen soft Skin: + ecchymosis and + pallor Psychiatric: Orientation: alert and oriented x 3 Eye Contact: good eye contact Insight: good insight some aphasia from previous strokes noted Results & Data ([facility]) Vital Signs (Past 12 Hours) Vital Signs Temp Pulse Pulse Resp BP Pulse Ox 09/16/21 07:56 36.8 C 102 H 22 108/77 98 09/16/21 07:35 101 H 24 96 09/16/21 04:05 37 C 102 H 28 H 97/62 L 90 09/16/21 03:40 29 H 54 L 09/16/21 01:20 90 22 71 L 09/15/21 23:59 37.1 C 84 20 94/52 L 88 L 09/15/21 22:22 106 H 24 88 L PG Care Time/CCT Total # of Minutes Spent Total Time Spent with Patient: Total time spent is greater than 50% in coordination of care (as documented) at patient's floor/unit and/or counseling patient: 100 minutes Coding Level of Care Code 30598 Initial Inpt Care Lvl 3 Diagnoses Palliative care encounter Z51.5 COPD (chronic obstructive pulmonary disease) J44.9 COPD type: unspecified COPD Pulmonary nodule R91.1 Stroke I63.9 Hypoxia R09.02 Time Spent (min) 100
[2021-09-16] MEDS: POLYETHYLENE (MIRALAX) 17 GM PACK PO SCH (10:11)
[2021-09-16] MEDS ORDERED: MoRPHine SULFATE 5 MG/0.25 ML UDP PO PRN (12:40)
[2021-09-16] MEDS: ENOXAPARIN INJ 40 MG/0.4 ML SYR SQ SCH (13:11)
[2021-09-16] MEDS: amLODIPine BESYLATE 5 MG TAB PO SCH (20:27)
[2021-09-16] MEDS: CLOPIDOGREL BISULFATE 75 MG TAB PO SCH (20:27)
[2021-09-16] MEDS: EZETIMIBE 10 MG TABLET PO SCH (20:27)
[2021-09-16] MEDS: FINASTERIDE 5 MG TAB PO SCH (20:30)
[2021-09-16] MEDS: PRAVASTATIN SOD 40 MG TAB PO SCH (20:33)
[2021-09-16] MEDS: traZODone HCL 50 MG TAB PO SCH (20:33)
--- NOTE | 2021-09-17 06:55 | Pulmonology Progress Note ---
Date of Service September 16, 2021 Assessment & Plan (1) Acute on chronic respiratory failure with hypoxia: (2) CAMILO (obstructive sleep apnea): (3) COPD (chronic obstructive pulmonary disease): COPD type: unspecified COPD Qualified Code(s): J44.9 - Chronic obstructive pulmonary disease, unspecified (4) Hypercapnic respiratory failure: (5) Hemoptysis: Plan: Impression: 71-year-old male with acute on chronic hypoxemic and hypercarbic respiratory failure and bibasilar infiltrates. He is being treated for pneumonia however he has been afebrile with a normal procalcitonin. Recommendations: 1. COPD: Continue current nebulizers. No indication for prednisone as patient is not bronchospastic. 2. Hypoxemic respiratory failure: Secondary to VQ mismatch as well as hypercarbia. Agree with pursuing palliative measures such as comfort measures only. 3. Hypercarbic respiratory failure: Suspect obesity hypoventilation syndrome. Continue with as needed BiPAP use. 4. Hemoptysis: No recurrence. 5. Questionable pneumonia: Received a course of Zosyn earlier in the hospitalization. Discontinued on Thursday. 6. Elevated troponin: Management per primary service. Appreciate palliative care input. I will sign off at this time. Please call with questions. Thank you. Admission and Anticipated Discharge Date Admission Date: September 10, 2021 Subjective Patient appears confused laying in bed on high flow nasal cannula at a rate of 50 L and FiO2 of 90%. Not appear to be in any significant distress. He says many times that "I want to go home". Family around the patient. Review of Systems Review of Systems: Unobtainable due to cognitive status Physical Exam Constitutional: WD/WN, vitals as above + morbidly obese; not in distress Neck: trachea midline, no thyromegaly Respiratory: no respiratory distress, no labored breathing and not tachypneic Auscultation: + diminished lung sounds; no crackles and no wheezes Cardiovascular: RRR, no murmur, no edema Gastrointestinal (Abdomen): normal bowel sounds, soft, nontender, no hepatosplenomegaly Musculoskeletal: Extremities: extremities normal to inspection Skin: no rashes, warm and dry Results & Data Results & Data ([facility]) Vital Signs (Past 12 Hours) Vital Signs Temp Pulse Pulse Pulse Resp BP Pulse Ox 09/17/21 04:00 36.6 C 98 H 24 111/71 88 L 09/17/21 02:40 95 H 17 89 L 09/17/21 00:00 37.5 C 88 24 135/70 91 09/16/21 23:29 89 18 91 09/16/21 22:20 93 H 09/16/21 20:31 97 H 150/75 H 09/16/21 20:02 109 H 93 09/16/21 19:06 37.2 C 96 H 26 H 128/65 91 PG Care Time/CCT Total # of Minutes Spent Total Time Spent with Patient: Total time spent is greater than 50% in coordination of care (as documented) at patient's floor/unit and/or counseling patient: Coding Level of Care Code 84409 Subseq Hosp Care Lvl 2 Diagnoses Acute on chronic respiratory failure with hypoxia J96.21 CAMILO (obstructive sleep apnea) G47.33 COPD (chronic obstructive pulmonary disease) J44.9 COPD type: unspecified COPD Hypercapnic respiratory failure J96.92 Hemoptysis R04.2
[2021-09-17] MEDS: BUDESONIDE 0.5 MG/2 ML VIAL (PULMICORT) NEB SCH ×2 (07:01→19:38)
[2021-09-17] MEDS: FORMOTEROL 20 MCG/2 ML VIAL NEB SCH ×2 (07:03→19:38)
[2021-09-17] MEDS: POLYETHYLENE (MIRALAX) 17 GM PACK PO SCH (07:10)
[2021-09-17] MEDS: DOCUSATE SODIUM 100 MG CAP PO SCH (07:10)
[2021-09-17] MEDS: hydrALAZINE HCL 25 MG TAB PO SCH ×2 (08:20→13:08)
[2021-09-17] MEDS: METOPROLOL TARTRATE 50 MG TAB PO SCH (08:20)
[2021-09-17] MEDS: allopurinoL 100 MG TAB PO SCH (08:21)
[2021-09-17] MEDS: FUROSEMIDE 40 MG/4 ML VIAL IV SCH (08:21)
[2021-09-17] MEDS: FAMOTIDINE 20 MG TAB PO SCH (08:21)
[2021-09-17] MEDS: LOSARTAN POTASSIUM 25 MG TAB PO SCH (08:21)
--- NOTE | 2021-09-17 09:56 | Palliative Care Progress Note ---
Date of Service September 17, 2021 Assessment & Plan (1) Palliative care encounter: Plan: I met with Karlos and his , Nereida, at his bedside in room 208. He is on High Flow Nasal Canula with 60L and an FiO2 of 100%. Karlos was able to speak in full sentences and was able to tell me what was going on with him medically to a degree, he did appear more aphasic today and having more dusky skin tone. He does have vascular dementia, along with some aphagia from previous (five) strokes that he has. During our encounter, we discussed transitioning to comfort measures and Nereida gave him permission to do so. He said he is 'ready to go home'. I asked him to elaborate on that and he did discuss his previous 'near ' experience that he recalled from 5 years ago. He reflected on his numerous trips that him and Nereida have taken again. Some family will be coming in today into tomorrow to say goodbye, numerous family members visited last night as well. Full transition to [employer]PER[employer] tomorrow, unless a large decline shift today, leading to him being obtunded and not responsive. We discussed Roxanol use and its benefits, along with risk of him requiring additional dosing. Patient is receptive to taking a dose of Roxanol to assist with air hunger and hopefully decrease his accessory muscle use with his breathing. Palliative will follow. (2) COPD (chronic obstructive pulmonary disease): (3) Pulmonary nodule: (4) Stroke: (5) Hypoxia: Admission and Anticipated Discharge Date Admission Date: September 10, 2021 Subjective Pt remains AAOx3, with some aphagia. His SpO2 has dropped, now maintaining 86-88%, even as low as 86%. Pt called and she is at the bedside. Lengthy conversation held with both pt and . See A/P for further details. Review of Systems Review of Systems: Belcher System Assessment Scale: Pain: 0/3 SOB: 1/3 Tiredness: 0/3 Lack of Appetite: 1/3 Palliative Performance Scale: 30% Physical Exam Constitutional: + frail appearing, + disheveled, cooperative and comfortable ENMT: Mouth: + dry oral mucous membranes Respiratory: + uses accessory muscles (diaphragmatic muscles ), + cough and able to speak in complete sentences Auscultation: + diminished lung sounds Cardiovascular: Rate/Rhythm: regular rate and regular rhythm Heart Sounds: normal S1 and normal S2 Extremities: normal capillary refill; no pedal edema Gastrointestinal (Abdomen): Inspection/Auscultation: abdomen normal to inspection Percussion/Palpation: abdomen soft Skin: + ecchymosis and + pallor Psychiatric: Orientation: alert and oriented x 3 Eye Contact: good eye contact Insight: good insight Results & Data ([facility]) Vital Signs (Past 12 Hours) Vital Signs Temp Pulse Pulse Pulse Resp BP Pulse Ox 09/17/21 08:00 90 108 H 133/77 88 L 09/17/21 07:05 98 H 22 90 09/17/21 07:04 98 H 97 H 22 90 09/17/21 04:00 36.6 C 98 H 24 111/71 88 L 09/17/21 02:40 95 H 17 89 L 09/17/21 00:00 37.5 C 88 24 135/70 91 09/16/21 23:29 89 18 91 09/16/21 22:20 93 H PG Care Time/CCT Total # of Minutes Spent Total Time Spent with Patient: Total time spent is greater than 50% in coordination of care (as documented) at patient's floor/unit and/or counseling patient: 45 minutes Coding Level of Care Code 67384 Subseq Hosp Care Lvl 3 Diagnoses Palliative care encounter Z51.5 COPD (chronic obstructive pulmonary disease) J44.9 COPD type: unspecified COPD Pulmonary nodule R91.1 Stroke I63.9 Hypoxia R09.02 Time Spent (min) 45 (1) COPD (chronic obstructive pulmonary disease) COPD type: unspecified COPD Qualified Code(s): J44.9 - Chronic obstructive pulmonary disease, unspecified
--- NOTE | 2021-09-17 10:46 | Hospitalist Progress Note ---
Date of Service September 17, 2021 Assessment & Plan (1) Acute on chronic respiratory failure with hypoxia: (2) COPD (chronic obstructive pulmonary disease): (3) Pneumonia: (4) Cerebrovascular disease: (5) Hypertension: (6) Chronic kidney disease, stage 3a: Plan: Acute on chronic respiratory failure with hypoxia due to pneumonia and COPD - on 3-4 L oxygen at home but here unable to maintain adequate oxygen saturation despite on max setting of high flow and BIPAP and did not want intubation- hence elected for DNR/DNI 09/12 and supportive measures/comfort measures- Palliative yet to see him. ABG with hypoxia without hypercarbia, CXR with no new changes- no CHF; BNP normal. Not in respiratory distress despite hypoxia. - Patient was on zosyn, discontinued 09/[address] Hyde- he completed 5 day course. - Continue oxygen, nebs. - Pulm signed off - Palliative following CT 09/10- 1. No CTA evidence for pulmonary embolus. 2. Confluent alveolar opacities at both lung bases, right greater than left with findings suspicious for bibasilar pneumonia. 3. Underlying COPD. CXR 09/11 1. Cardiomegaly and emphysema with no radiographic evidence of congestive failure. 2. Bibasilar consolidation is unchanged from previous and suggests pneumonia/aspiration pneumonitis. Clinical correlation will be required and radiographic follow-up to resolution is recommended. H/o multiple CVA, h/o carotid artery intervention and CABG- continue plavix, statin, zetia CKD3a- Cr around baseline of 1.3-1.6, relatively stable HTN- BP stable on Lopressor, losartan, hydralazine, amlodipine- parameters adjusted as BP soft Hemoptysis- resolved. H&H stable Elevated trop- mildly elevated, likely demand isch from resp distress. Denies any chest pain, no ischemic EKG changes. DVT prophylaxis- sc lovenox Dispo- Continue supportive measures for now- if fails to improve, full comfort measures. Palliative following. Discussed with palliative who stated no more labs or imaging. Admission and Anticipated Discharge Date Admission Date: September 10, 2021 Subjective No new issues. Feels about the same. Denies any chest pain, shortness of breath. Physical Exam Physical Exam: General: Lying comfortably in bed, not in acute distress, on HFNC HEENT: EOMI, SMITA Chest: Fair breath sounds anteriorly CVS: Regular rate and rhythm, normal heart sounds, no murmur Abdomen: Soft, non tender, not distended, normal bowel sounds Neuro: Awake, alert, oriented, conversing well, non focal Extremities: No cyanosis, clubbing or edema Results & Data Results & Data ([facility]) Vital Signs (Past 12 Hours) Vital Signs Temp Pulse Pulse Pulse Resp BP Pulse Ox 09/17/21 08:00 90 108 H 133/77 88 L 09/17/21 07:05 98 H 22 90 09/17/21 07:04 98 H 97 H 22 90 09/17/21 04:00 36.6 C 98 H 24 111/71 88 L 09/17/21 02:40 95 H 17 89 L 09/17/21 00:00 37.5 C 88 24 135/70 91 09/16/21 23:29 89 18 91 (1) COPD (chronic obstructive pulmonary disease) COPD type: unspecified COPD Qualified Code(s): J44.9 - Chronic obstructive pulmonary disease, unspecified (2) Hypertension Hypertension type: unspecified Qualified Code(s): I10 - Essential (primary) hypertension
[2021-09-17] MEDS: ENOXAPARIN INJ 40 MG/0.4 ML SYR SQ SCH (13:08)
[2021-09-17] MEDS ORDERED: STAT IV Infusion **Titration per Protocol STA (14:08)
[2021-09-17] MEDS ORDERED: GLYCOPYRROLATE 0.2 MG/ML VIAL IV PRN (14:08)
[2021-09-17] MEDS ORDERED: MoRPHine SULFATE 2 MG/ML CARP IV STA (14:08)
[2021-09-17] MEDS ORDERED: MoRPHine SULF/NSS 250 MG/250 ML BTL IV SCH (14:15)
[2021-09-17] MEDS: LORazepam 2 MG/1 ML VIAL IV PRN ×2 (15:23→19:20)
--- NOTE | 2021-09-17 23:49 | Death Pronouncement Note ---
Date of Service September 17, 2021 Pronouncement Note Admission Date September 10, 2021 Date and Time of Date of : 09/17/21 Time of : 23:42 Contributing Factors Pt was admitted with acute on chronic respiratory failure with hypoxia and COPD/Pneumonia He was a DNR/DNI HAd completed a 5 day course of Zosyn Unable to maintain adequate oxygen saturation despite max hi flow and BIPAP Transitioned to comfort measures this evening and was at bedside per nurse. Exam as listed below. certificate and discharge summary to be completed by attending physician in am. Janet Patel DO [facility] Hospitalist Additional Data Confirmation of : no pulse, no respirations, no heart sounds and pupils fixed and dilated Pronouncement Performed By: Attending Physician Family: contacted Attending physician: Khari Roche MD Was code activated?: No
--- NOTE | 2021-09-18 18:06 | Discharge Summary ---
Date of Service September 18, 2021 Admission HPI Per Admitting Provider A 71-year-old male with PMH oxygen dependent COPD, history of multiple prior CVAs with right sided weakness, carotid artery disease s/p multiple interventions, HTN, CKD stage III, CAD, and other problems listed below who p resents to the ED for evaluation of cough and shortness of breath. Patient seen by pulmonary as an outpatient on 08/19. Had a low-dose CT that showed new 6.7 cm irregular masslike consolidation and 5 mm left upper lobe/7 mm left lower lobe pulmonary nodules. Patient was treated with Augmentin for 7 days. Per pulmonary, patient may require navigational bronchoscopy if the infiltrates do not resolve. Patient is a somewhat poor historian due to underlying vascular dementia, history is obtained from who is the bedside. She states that there was improvement in patient's cough and sputum production since completing the Augmentin course. Around 3 AM, patient woke up with a severe coughing episode that was productive for a large amount of phlegm. Shortly after, patient then began " vomiting bright red blood" -- and patient are unsure if this was hemoptysis versus hematemesis. Patient denies abdominal pain, nausea, dark tarry stools or bright red bleeding per rectum. No chest pain. Denies lightheadedness, dizziness, diaphoresis, syncopal events. No fevers or chills. Denies urinary symptoms. Upon arrival to the ED, patient was requiring 15 L NRB, subsequently placed on BiPAP. CTA negative for PE, however does show confluent alveolar opacities at both lung bases, right greater than left with findings suspicious for bibasilar pneumonia. Patient was given neb treatment, IV azithromycin, IV solumedrol, IV metronidazole, IV cefepime. Admission Exam Per Admitting Provider Constitutional: WD/WN, vitals as above Eyes: PERRL, conjunctivae normal, anicteric sclerae ENMT: external ear and nose normal, oropharynx normal Respiratory: normal respiratory effort, lungs clear to auscultation Auscultation: no rhonchi and no wheezes on BiPap Cardiovascular: Rate/Rhythm: regular rate and regular rhythm Vessels: normal peripheral pulses Extremities: no edema Gastrointestinal (Abdomen): normal bowel sounds, soft, nontender, no hepatosplenomegaly Skin: no rashes, warm and dry Neurologic: PERRL, EOMI, accommodation nl, no face palsy, no dysarthria Psychiatric: Orientation: alert, oriented to person, oriented to place and oriented to time (aware of year and month, unable to state day of week) Affect: euthymic affect Insight: + limited insight Principal Diagnosis acute on chronic respiratory failure copd pneumonia Discharge Data Allergies Allergy/AdvReac Type Severity Reaction Status Date / Time aspirin AdvReac Intermediate RELAXES Verified 09/10/21 07:38 RECTUM atorvastatin AdvReac Intermediate RELAXED Verified 09/10/21 07:38 RECTAL SPHINCTER Consultations 09/10/21 10:04 ED Decision to Admit Stat 09/10/21 12:42 Consult Pulmonology Routine 09/12/21 09:49 Consult Palliative Care Routine Ordered Studies 09/10/21 07:09 CT angio chest PE protocol Stat Hospital Course (1) Acute on chronic respiratory failure with hypoxia: (2) COPD (chronic obstructive pulmonary disease): (3) Pneumonia: (4) Cerebrovascular disease: (5) Hypertension: (6) Chronic kidney disease, stage 3a: Patient on Sep 17 2021 at 23:42. Last Progress notes as per . Acute on chronic respiratory failure with hypoxia due to pneumonia and COPD - on 3-4 L oxygen at home but here unable to maintain adequate oxygen saturation despite on max setting of high flow and BIPAP and did not want intubation- hence elected for DNR/DNI 09/12 and supportive measures/comfort measures- Palliative yet to see him. ABG with hypoxia without hypercarbia, CXR with no new changes- no CHF; BNP normal. Not in respiratory distress despite hypoxia. - Patient was on zosyn, discontinued 09/[address] Hyde- he completed 5 day course. - Continue oxygen, nebs. - Pulm signed off - Palliative following CT 09/10- 1. No CTA evidence for pulmonary embolus. 2. Confluent alveolar opacities at both lung bases, right greater than left with findings suspicious for bibasilar pneumonia. 3. Underlying COPD. CXR 09/11 1. Cardiomegaly and emphysema with no radiographic evidence of congestive failure. 2. Bibasilar consolidation is unchanged from previous and suggests pneumonia/aspiration pneumonitis. Clinical correlation will be required and radiographic follow-up to resolution is recommended. H/o multiple CVA, h/o carotid artery intervention and CABG- continue plavix, statin, zetia CKD3a- Cr around baseline of 1.3-1.6, relatively stable HTN- BP stable on Lopressor, losartan, hydralazine, amlodipine- parameters adjusted as BP soft Hemoptysis- resolved. H&H stable Elevated trop- mildly elevated, likely demand isch from resp distress. Denies any chest pain, no ischemic EKG changes. DVT prophylaxis- sc lovenox Dispo- Continue supportive measures for now- if fails to improve, full comfort measures. Palliative following. Discussed with palliative who stated no more labs or imaging. Total Time Total Time Spent Total Time Spent (In Minutes): 20minutes Discharge Plan Discharge Items Patient Disposition: Other Date/Time: 09/17/21 22:22
== END 2021-09-18 01:32 | disposition expired | DRG 193 ==
LOC: ED 05:47 → 2E 10:44 → SUATTDRO 10:44 → 2E 11:41